=== PATIENT | female | born 1960 | race African-American/Black ===

== ENCOUNTER 2017-12-10 04:35 | Inpatient (IN) | payer BC ==
[~2017-12-10] VITALS: Ht 157.5 cm; Wt 75.7 kg
[2017-12-10] VITALS (19 sets, daily range): BP systolic 82–121; BP diastolic 58–82; PULSE 49–91; RESP 12–18; TEMP 97.6–98.4; O2SAT 95–100
[2017-12-10] MEDS ORDERED: HEPARIN SODIUM - IV 10,000 UNITS/10 ML VIAL ONE ×2 (05:01→05:32)
--- NOTE | 2017-12-10 05:09 | PD ---
HPI Chief Complaint: Fall Time Seen by Provider: 04:50 Travel History International Travel<30 days: No Contact w/Intl Traveler<30days: No Traveled to known affect area: No History of Present Illness HPI 57yo F with PMH of DM presents to the ED with c/o right shoulder, right rib pain after falling today. Said she woke up in bed with chest pain and checked her sugar and it was high so she took her insulin. She then went to the bathroom and fell and hit her head and neck as well as her right ribs. Pt feels sob right now. +Nausea. Denies any vomiting, abdominal pain, focal weakness or numbness. Pt does not have a house admin. PFSH Social History Tobacco Use: No Allergies-Medications (Allergen,Severity, Reaction): Coded Allergies: aspirin (Verified Allergy, Unknown, 12/10/17) famotidine (Verified Allergy, Unknown, 12/10/17) lisinopril (Verified Allergy, Unknown, Itching, 12/10/17) FACIAL SWELLING AND ITCHING metoprolol (Verified Allergy, Unknown, 12/10/17) Reported Meds & Prescriptions Reported Meds & Active Scripts Active Reported Lantus Inj (Insulin Glargine) 1,000 Unit/10 Ml Vial 20 Units SQ HS Humalog Inj (Insulin Human Lispro) 1,000 Unit/10 Ml Vial 30 Units SQ TIDAC Review of Systems Except as stated in HPI: all other systems reviewed are Neg Physical Exam Narrative GENERAL: 57yo F in moderate distress. SKIN: Focused skin assessment warm/dry. HEAD: Atraumatic. Normocephalic. EYES: Pupils equal and round. No scleral icterus. No injection or drainage. ENT: No nasal bleeding or discharge. Mucous membranes pink and moist. NECK: Trachea midline. No JVD. CARDIOVASCULAR: Regular rate and rhythm. No murmur appreciated. RESPIRATORY: No accessory muscle use. Clear to auscultation. Breath sounds equal bilaterally. GASTROINTESTINAL: Abdomen soft, non-tender, nondistended. Hepatic and splenic margins not palpable. MUSCULOSKELETAL: No obvious deformities. No clubbing. No cyanosis. No edema. NEUROLOGICAL: Awake and alert. No obvious cranial nerve deficits. Motor grossly within normal limits. Normal speech. PSYCHIATRIC: Appropriate mood and affect; insight and judgment normal. Data Data Last Documented VS Vital Signs Date Time Temp Pulse Resp B/P (MAP) Pulse Ox O2 Delivery O2 Flow Rate FiO2 12/10/17 05:25 63 14 121/70 (87) 100 Nasal Cannula 3.00 12/10/17 04:[address] Brain W/O Iv Contrast(Rout) (12/10/17 ) Ct Cerv Spine W/O Contrast (12/10/17 ) Ct Thorax/ Chest Wo Iv Contras (12/10/17 ) Heparin Inj (Heparin Inj) (12/10/17 05:01) Sodium Chlor 0.9% 1000 Ml Inj (Ns 1000 M (12/10/17 05:15) Sodium Chlor 0.9% 1000 Ml Inj (Ns 1000 M (12/10/17 05:15) I-Stat Profile (12/10/17 04:50) Troponin I (12/10/17 05:12) Ckmb (Isoenzyme) Profile (12/10/17 05:12) Complete Blood Count With Diff (12/10/17 05:12) Magnesium (Mg) (12/10/17 05:12) Prothrombin Time / Inr (Pt) (12/10/17 05:12) Act Partial Throm Time (Ptt) (12/10/17 05:12) Electrocardiogram (12/10/17 05:12) Iv Access Insert/Monitor (12/10/17 05:12) Oximetry (12/10/17 05:12) Heparin Inj (Heparin Inj) (12/10/17 05:12) Electrocardiogram (12/10/17 ) Ondansetron Inj (Zofran Inj) (12/10/17 05:15) Cardiac Catheterization (12/10/17 ) Potassium Chloride (Kcl) (12/10/17 05:30) Hip, Uni(Ap&Lat) W Ap Pelvis (12/10/17 ) Heparin-Ns/Pf Inj (Heparin-Ns/Pf Inj) (12/10/17 05:32) Heparin Inj (Heparin Inj) (12/10/17 05:32) Admit Order (Ed Use Only) (12/10/17 05:42) CKMB (12/10/17 04:50) CKMB% (12/10/17 04:50) Labs Laboratory Tests Test 12/10/17 04:45 12/10/17 04:50 White Blood Count 12.4 TH/MM3 Red Blood Count 4.99 MIL/MM3 Hemoglobin 14.0 GM/DL Hematocrit 42.3 % Mean Corpuscular Volume 84.7 FL Mean Corpuscular Hemoglobin 28.1 PG Mean Corpuscular Hemoglobin Concent 33.2 % Red Cell Distribution Width 13.7 % Platelet Count 330 TH/MM3 Mean Platelet Volume 8.6 FL Neutrophils (%) (Auto) 50.2 % Lymphocytes (%) (Auto) 44.4 % Monocytes (%) (Auto) 4.4 % Eosinophils (%) (Auto) 0.7 % Basophils (%) (Auto) 0.3 % Neutrophils # (Auto) 6.2 TH/MM3 Lymphocytes # (Auto) 5.5 TH/MM3 Monocytes # (Auto) 0.5 TH/MM3 Eosinophils # (Auto) 0.1 TH/MM3 Basophils # (Auto) 0.0 TH/MM3 CBC Comment AUTO DIFF Differential Total Cells Counted 100 Neutrophils % (Manual) 57 % Band Neutrophils % 1 % Lymphocytes % 38 % Monocytes % 3 % Basophils % 1 % Neutrophils # (Manual) 7.2 TH/MM3 Differential Comment FINAL DIFF MANUAL Platelet Estimate NORMAL Platelet Morphology Comment NORMAL Red Cell Morphology Comment NORMAL Prothrombin Time 10.7 SEC Prothromb Time International Ratio 1.1 RATIO Activated Partial Thromboplast Time 21.3 SEC Bedside Hemoglobin 13.9 G/DL Bedside Hematocrit 41.0 % Bedside Sodium 137 MMOL/L Bedside Potassium 2.9 MMOL/L Bedside Chloride 100 MMOL/L Bedside Blood Urea Nitrogen 17 MG/DL Bedside Creatinine 1.0 MG/DL Bedside Glucose 295 MG/DL Magnesium Level 1.9 MG/DL Total Creatine Kinase 204 U/L Creatine Kinase MB 4.7 NG/ML Creatine Kinase MB % 2.3 % Troponin I 0.32 NG/ML [facility] Medical Decision Making Medical Screen Exam Complete: Yes Emergency Medical Condition: Yes Interpretation(s) EKG: ST elevation in III, aVF with reciprocal ST depression in I, aVL, V2, V3. Differential Diagnosis STEMI vs. ICH vs. fracture Narrative Course 57yo F who woke up with chest pain today. Then she fell and hit her head with questionable LOC. Pt has right sided rib pain, neck pain and left hip pain. STEMI alert activated after I saw the EKG. I spoke with Dr. Eric at 4:50am and he wanted the CT scans first which was completed. Also wanted repeat EKG which now showed ST elevation in lead II as well. CT brain showed no acute intracranial abnormality. CT cervical spine showed subtle nondisplaced fracture involving the anterior tubercle of the left C2 transverse process. Fracture does not appear to extend to the transverse foramen. Pt has cervical spine collar on. CT chest showed no CT evidence for significant traumatic injury in chest. Pt initially hypotensive but BP improved to 121/70 after NS IVF. HR also improved. Pt is allergic to aspirin so not given. Pt given heparin and zofran. POC potassium 2.9. KCl was ordered but not given. Pt emergently transferred to medical lab technician. Critical Care Narrative Aggregate critical care time was 35 minutes. Time to perform other separately billable procedures was not included in the critical care time. My time did not include minutes spent treating any other patients simultaneously or on activities that did not directly contribute to the patient's treatment. The services I provided to this patient were to treat and/or prevent clinically significant deterioration that could result in: cardiovascular collapse or . I provided critical care services requiring my management, as noted below: Chart data review, documentation time, medication orders and management, vital sign assessments/reviewing monitor data, ordering and reviewing lab tests, ordering and interpreting/reviewing x-rays and diagnostic studies, care of the patient and discussion of the patient with the admitting physicians. Diagnosis Primary Impression: STEMI (ST elevation myocardial infarction) Qualified Codes: I21.3 - ST elevation (STEMI) myocardial infarction of unspecified site Admitting Information Admitting Physician Requests: Daniella Mota DO Dec 10, 2017 05:09
[2017-12-10] MEDS ORDERED: HEPARIN SODIUM - IV 10,000 UNITS/10 ML VIAL IV PUSH STA (05:12)
[2017-12-10] MEDS ORDERED: ONDANSETRON HCL 4 MG/2 ML VIAL IV PUSH ONE (05:15)
[2017-12-10] MEDS ORDERED: SODIUM CHLOR 0.9% 1000 ML INJ 1,000 ML IV ONE ×2 (05:15)
--- NOTE | 2017-12-10 05:24 | RADRPT ---
EXAM DATE/TIME: 12/10/2017 05:03 [facility] COMPARISON: No previous studies available for comparison. INDICATIONS : Trauma, fall. RADIATION DOSE: 56.56 CTDIvol (mGy) MEDICAL HISTORY : None SURGICAL HISTORY : None. ENCOUNTER: Initial ACUITY: 1 day PAIN SCALE: 0/10 LOCATION: Bilateral cranial TECHNIQUE: Multiple contiguous axial images were obtained of the head. Using automated exposure control and adj ustment of the mA and/or kV according to patient size, radiation dose was kept as low as reasonably a chievable to obtain optimal diagnostic quality images. DICOM format image data is available electro nically for review and comparison. FINDINGS: CEREBRUM: Mild cerebral volume loss. The ventricles are normal for degree of atrophy. No evidence of midline s hift, mass lesion, hemorrhage or acute infarction. No extra-axial fluid collections are seen. POSTERIOR FOSSA: The cerebellum and brainstem are intact. The 4th ventricle is midline. The cerebellopontine angle i s unremarkable. EXTRACRANIAL: The visualized portion of the orbits is intact. SKULL: The calvaria is intact. No evidence of skull fracture. CONCLUSION: 1. No acute intracranial abnormality. Gabriel Hernández MD on December 10, 2017 at 5:21 Board Certified Radiologist. This report was verified electronically.
[2017-12-10] MEDS ORDERED: HUMALOG SQ (05:29)
[2017-12-10] MEDS ORDERED: POTASSIUM CHLORIDE 20 MEQ CONTROLLED RELEASE TAB PO ONE (05:30)
[2017-12-10] MEDS ORDERED: HEPARIN-NS/PF INJ 1,000 ML ONE (05:32)
--- NOTE | 2017-12-10 05:33 | RADRPT ---
EXAM DATE/TIME: 12/10/2017 05:03 [facility] COMPARISON: No previous studies available for comparison. INDICATIONS : Trauma, fall. RADIATION DOSE: 21.26 CTDIvol (mGy) MEDICAL HISTORY : None SURGICAL HISTORY : None. ENCOUNTER: Initial ACUITY: 1 day PAIN SCALE: 0/10 LOCATION: neck TECHNIQUE: Volumetric scanning of the cervical spine was performed. Multiplanar reconstructions i n the sagittal, coronal and oblique axial planes were performed. Using automated exposure control a nd adjustment of the mA and/or kV according to patient size, radiation dose was kept as low as reason ably achievable to obtain optimal diagnostic quality images. DICOM format image data is available e lectronically for review and comparison. FINDINGS: There is a subtle nondisplaced fracture involving the anterior tubercle of the left C2 transverse pro cess. Fracture doesn't appear to extend to the transverse foramen. Well-corticated osseous fragment a djacent the dens tip does not have the typical appearance of an ossiculum terminale. Vertebral body h eights are intact. Dens is intact. Sagittal alignment is maintained. There is a normal C1-2 relations hip. Facets are normally aligned. There is no significant prevertebral soft tissue hematoma. No signi ficant cervical adenopathy or gross mass. The thyroid appears unremarkable. Visualized lung apices ar e clear without pneumothorax. CONCLUSION: 1. Subtle nondisplaced fracture involving the anterior tubercle of the left C2 transverse process. Fr acture does not appear to extend to the transverse foramen. Gabriel Hernández MD on December 10, 2017 at 5:23 Board Certified Radiologist. This report was verified electronically.
--- NOTE | 2017-12-10 05:36 | RADRPT ---
EXAM DATE/TIME: 12/10/2017 05:07 [facility] COMPARISON: No previous studies available for comparison. INDICATIONS : Trauma, fall. Right side chest pain. RADIATION DOSE: 15.58 CTDIvol (mGy) MEDICAL HISTORY : None SURGICAL HISTORY : None. ENCOUNTER: Initial ACUITY: 1 day PAIN SCALE: 6/10 LOCATION: Right chest TECHNIQUE: Volumetric scanning of the chest was performed. Using automated exposure control and adjustment of t he mA and/or kV according to patient size, radiation dose was kept as low as reasonably achievable to obtain optimal diagnostic quality images. DICOM format image data is available electronically for r eview and comparison. Follow-up recommendations for detected pulmonary nodules are based at a minimum on nodule size and pa tient risk factors according to Fleischner Society Guidelines. FINDINGS: LUNGS: There is no consolidation or pneumothorax. No concerning pulmonary nodule is visualized. PLEURAE: There is no pleural thickening or pleural effusion. MEDIASTINUM: The heart and great vessels demonstrate no acute abnormality. coronary artery calcifications. There i s no mediastinal or hilar lymphadenopathy. AXILLAE: Within normal limits. No lymphadenopathy. MUSCULOSKELETAL: No significant acute fracture. MISCELLANEOUS: The visualized upper abdominal organs demonstrate no acute abnormality. CONCLUSION: 1. No CT evidence for significant acute traumatic injury in the chest. 2. Coronary artery calcifications. Gabriel Hernández MD on December 10, 2017 at 5:32 Board Certified Radiologist. This report was verified electronically.
[2017-12-10] MEDS ORDERED: MIDAZOLAM HCL 2 MG/2 ML VIAL ONE (05:46)
[2017-12-10] MEDS ORDERED: BIVALIRUDIN 250 MG VIAL ONE (05:53)
[2017-12-10 06:03] LABS: AUTOMATED NEUTROPHIL # 6.2 TH/MM3 (1.8-7.7); BASOPHIL % 0.3 % (0.0-2.0); EOSINOPHIL # 0.1 TH/MM3 (0-0.4); EOSINOPHIL % 0.7 % (0.0-4.0); HEMATOCRIT 42.3 % (35.0-46.0); LYMPH % 44.4 % (9.0-44.0); LYMPHOCYTE # 5.5 TH/MM3 (1.0-4.8); MEAN CELL VOLUME 84.7 FL (80.0-100.0); MEAN CORPUSCULAR HEMOGLOBIN 28.1 PG (27.0-34.0); MEAN CORPUSCULAR HGB CONC 33.2 % (32.0-36.0); MEAN PLATELET VOLUME 8.6 FL (7.0-11.0); MONO % 4.4 % (0.0-8.0); MONOCYTE # 0.5 TH/MM3 (0-0.9); NEUT % 50.2 % (16.0-70.0); PLATELET COUNT 330 TH/MM3 (150-450); RED BLOOD COUNT 4.99 MIL/MM3 (4.00-5.30); RED CELL DISTRIBUTION WIDTH 13.7 % (11.6-17.2); WHITE BLOOD COUNT 12.4 TH/MM3 (4.0-11.0)
[2017-12-10 06:13] LABS: INTERNATIONAL NORMALIZED RATIO 1.1 RATIO; PROTHROMBIN TIME - PATIENT 10.7 SEC (9.8-11.6)
[2017-12-10 06:22] LABS: MAGNESIUM 1.9 MG/DL (1.5-2.5)
[2017-12-10 06:24] LABS: TROPONIN I 0.32 NG/ML (0.02-0.05)
[2017-12-10] MEDS ORDERED: CANGRELOR TETRASODIUM 50,000 MCG VIAL ONE (06:28)
[2017-12-10] MEDS ORDERED: TICAGRELOR 90 MG TAB PO ONE ×2 (06:36→06:45)
[2017-12-10] MEDS ORDERED: SODIUM CHLOR 0.9% 1000 ML INJ 1,000 ML IV SCH (06:41)
[2017-12-10] MEDS ORDERED: ONDANSETRON HCL 4 MG/2 ML VIAL IV PUSH PRN (06:45)
[2017-12-10] MEDS ORDERED: CANGRELOR INJ 50,000 MCG in SODIUM CHLOR 0.9% 250 ML INJ 250 ML IV ONE (06:45)
[2017-12-10] MEDS ORDERED: ACETAMINOPHEN 325 MG TAB PO PRN (06:45)
[2017-12-10] MEDS ORDERED: MISC INFORMATION XX ONE (06:45)
[2017-12-10] MEDS ORDERED: SODIUM CHLORIDE 0.9% FLUSH 10 ML FLUSH IV FLUSH PRN (06:45)
[2017-12-10] MEDS ORDERED: ATROPINE SULFATE 1 MG/ML VIAL IV PUSH PRN (06:45)
--- NOTE | 2017-12-10 06:47 | CATHPROC ---
[employer] HIS Report Study Information Study Number Admission Scheduled Start Study Start [id number] Dec 10 2017 4:35AM 12/10/2017 Dec 10 2017 5:28AM [place] Service Cardiac Catheterization Admit Source Facility Department Emergency department [facility] Physician and Clinical Staff Initial Navdeep Luna Upholsterer Inside Ananya Merida ,NANETTEN Upholsterer Inside Zeb Alvares,GUZMAN Recorder Aneudy Villaseñor,RT(R) Scrub Israel Guaman,RT(R) Procedures Performed Procedure Location (Site) Vessel Name Coronary Angiograms LCA Left Coronary Coronary Angiograms RCA Right Coronary Drug Eluting Inflatio RCA Dist Right Coronary Drug Eluting Inflatio RCA Mid Right Coronary L Heart Cath PTCA RCA Dist Right Coronary PTCA RCA Mid Right Coronary PTCA RCA Prox Right Coronary Wire insertion Fem Art (right) Femoral Art Equipment Time Tank Inspector Description Size Mfg Part Number Used/Scraped PERCLOSE, PRO GLIDE CLOSER 06:26 [employer] FR 6 [id number] *[id number] Used DEVICE TRANSDUCER, TRUWAVE [id number] 05:47 MCCORMACK [employer] * Used W/STOCKTestCredCK *[id number] INTRODUCER SET, 05:47 [employer] FR 5 [id number] *[id number] Used MICROPUNCTURE, STIFFENED [id number] *[id number] *[id number] 05:47 [employer] INDUSTRIES PACK, CCL CUSTOM * Used *[id number] 06:03 [employer]TR[employer]IC BALLOON, 3.0 X 12MM EUPHORA 12MM Used *[id number] BALLOON, 3.5 X 20MM NC [id number] 06:22 [employer]TR[employer]IC 20MM Used EUPHORA *[id number] EXPORTAP 06:06 [employer]IC CATHETER, EXPORT ASPIRATON Used *[id number] 06:21 [employer]TR[employer]IC STENT, 2.75 12MM JINNY 2.75 12MM Used *[id number] 06:18 [employer]IC STENT, 3.0 26MM JINNY 3.0 26MM Used *[id number] 06:05 [employer] MEDICAL 30 RAQUEL INDEFLATOR Used *[id number] 06:00 [employer] MEDICAL SHEATH, FR6.5 PRELUDE 11CM FR 6.5 038ACT Used *[id number] 05:47 MERIT MEDICAL WIRE, 3MMJ .035 180CM 180CM Used *[id number] 05:47 NAMIC MANIFOLD, 4 PORT * Used *[id number] 05:47 NYCOMED OMNIPAQUE, 350 MG, 150ML 150ML [id number] Used [id number] 05:47 ARREGUIN MEDICAL BLANKET,WARM AIR CCL * Used *[id number] WIRE, RUNTHROUGH NS FLOPPY [id number] 06:03 [employer] MEDICAL 180CM Used .014 180CM *[id number] Equipment Model, Serial, Lot Number and Expiration Data Description Model Number Serial Number Lot Number Expiration Date CATHETER, EXPORT ASPIRATON [id number] 07-15-2019 PERCLOSE, PRO GLIDE CLOSER [id number] 06-21-2019 DEVICE STENT, 2.75 12MM JINNY [id number] 07-24-2019 STENT, 3.0 26MM JINNY [id number] 05-24-2019 History: Current Medications Medication Dosage/Unit Route Frequency Last Date/Time Taken Insulin History: Allergies Allergy Reaction lisinopril aspirin famotidine metoprolol History: Risk Factors Family History of Hypertension Dyslipidemia Previous OR Previous Heart Failure Premature CAD Yes No Yes No No Prior Valve Prior PCI Prior CABG Surgery No No No Cerebrovascular Peripheral Artery Chronic Lung On Dialysis Diabetes Diabetes Therapy Disease Disease Disease No No No No Yes Insulin History: Symptoms/Diagnosis Selection Items Chest pain Syncope History: Stress Tests Stress or Imaging Studies Performed No History: Other Current Smoker No Labs Hgb (g/dl) Hct (%) 11.60-17.00 35.00-51.00 13.9 41 Glucose (mg/dl) BUN (mg/dl) Creatinine (mg/dl) BUN:Creatinine (1:x) 74.00-106.00 7.00-18.00 0.50-1.30 10.00-20.00 295 17 1.0 17 Na (meq/l) K (meq/l) Cl (meq/l) 136.00-145.00 3.50-5.10 98.00-107.00 134 2.9 100 CPK-MB (ng/ML) 0.50-3.60 Not Drawn Medication Medication Total Dose (Bolus/Oral) Medication Total Dosage/Unit 1% XYLOCAINE 20 mL ANGIOMAX BOLUS 11 mL BRILINTA 180 mg FENTANYL 50 mcg VERSED 2 mg Medications (Bolus/Oral) Medication Time Given Dosage/Unit Administered By Reason 1% XYLOCAINE 12/10/2017 5:56:54 AM 20 mL Patient arrived on 20 mL 1% XYLOCAINE via Subcutaneous. VERSED 12/10/2017 5:57:00 AM 2 mg Zeb Alvares Patient arrived on 2 mg VERSED given by Zeb Alvares, RN in Right Antecubital via Peripheral IV. FENTANYL 12/10/2017 5:57:01 AM 50 mcg Zeb Alvares Patient arrived on 50 mcg FENTANYL given by Zeb Alvares, GUZMAN in Right Antecubital via Peripheral IV . ANGIOMAX BOLUS 12/10/2017 6:03:16 AM 11 mL Ananya Merida Patient arrived on 11 mL ANGIOMAX BOLUS given by Ananya Merida BSN in Right Antecubital via Pe ripheral IV. BRILINTA 12/10/2017 6:37:25 AM 180 mg Ananya Merida 180 mg BRILINTA given in lab by Ananya Merida BSN via Oral. Medication (Drip) Medication Time Given Dosage/Unit Concentration/Unit Diluent (ml) Solutio n ANGIOMAX DRIP 12/10/2017 6:05:07 AM 1.75 mg/kg/hr 250 mg 50 NaCl .9 1.75 mg/kg/hr ANGIOMAX DRIP given in lab by Ananya Merida BSN in Right Antecubital via Periphe ral IV. Pump/Drip Flow = 26.25 ml/hr using NaCl .9 with a concentration of 250 mg in 50 ml. IV Solutions 12/10/2017 5:44:23 AM 0 mL (IV) 500 NaCl .9 Patient arrived on IV Solutions in Right Antecubital via Peripheral IV. Pump/Drip Flow = 20 ml/hr usi ng NaCl .9. KENGREAL BOLUS 12/10/2017 6:35:16 AM 11 mL 11 mL KENGREAL BOLUS given in lab by Ananya Merida BSN in Right Antecubital via Peripheral IV. KENGREAL DRIP 12/10/2017 6:35:38 AM 4 mcg/kg/min 50 mg 250 NaCl .9 4 mcg/kg/min KENGREAL DRIP given in lab by Ananya Merida BSN in Right Antecubital via Peripher al IV. Pump/Drip Flow = 90 ml/hr using NaCl .9 with a concentration of 50 mg in 250 ml. Initial Case Assessment Cardiovascular HR Rhythm NIBP 54 Irregular 143/107 Edema Present Skin color Skin None Normal Warm Circulatory - Right Pulses Dorsalis Pedis Femoral 1 2 Scale (0,1,2,3,4,d) Circulatory - Left Pulses Dorsalis Pedis Femoral 1 2 Scale (0,1,2,3,4,d) Neurological State Oriented to time-place- Alert Moves all extremities person Respiration - General Respiration Rate SpO2 (%) O2 (lpm) (B/min) 15 100 0 Final Case Assessment Cardiovascular HR Rhythm NIBP Chest Pain 75 Sinus 95/67 0 Edema Present Skin color Skin None Normal Warm Dry Circulatory - Right Pulses Dorsalis Pedis Femoral 1 2 Scale (0,1,2,3,4,d) Circulatory - Left Pulses Dorsalis Pedis Femoral 1 2 Scale (0,1,2,3,4,d) Neurological State Oriented to time-place- Alert Moves all extremities person Respiration - General Respiration Rate SpO2 (%) O2 (lpm) (B/min) 17 97 0 Chronological Log Time Study Chronological Log 5:30:06 Emergency Room notified that [facility] is ready. 5:36:24 Patient arrived via Bed. 5:36:25 Patient Name, D.O.B, / Armband Verified By R.N. 5:36:25 Consent signed by the physician and the patient and verified by the [facility] staff. 5:36:26 Pre-op and post- op instructions given; patient acknowledges understanding of instructions. 5:36:31 Verbal Stimulation=2 Physical Stimulation=2 Airway=2 Respiration=2 TOTAL=8. (0=absent, 1=li mited, 2=present) 5:36:45 Presedation assessment performed by [facility] RN. 5:43:51 Immediate Presedation assesment performed by physician. 5:43:52 Patient has been NPO for Less than 6Hrs. 5:43:54 Skin Breakdown- none per patient. 5:44:04 Patient Warmer Placed on the Table. 5:44:06 Flavio Prominences Protected 5:44:07 A # 20 IV was noted in the Antecubital (right). Grade = 0 Vitals capture started with the following parameters, Patient=Adult, Interval=5 min, Initial Pr gjursn=644 mmHg, 5:44:15 Deflation Rate=5 mmHg, Cuff placed on Left Arm 5:44:23 Patient arrived on IV Solutions in Right Antecubital via Peripheral IV. Pump/Drip Flow = 20 ml/hr using NaCl .9. 5:44:43 HR=66 bpm, TYMY=009/107 mmhg, FoE7=601.0 %, Resp=23 B/min, Pain=6, Eliel=10, Butler=2 5:44:45 A # 20 IV was noted in the Antecubital (left). Grade = 0 5:45:05 History and physical on the chart or being dictated. Assessment: Initial Case, HR=54 BPM, Rhythm=Irregular, IDDW=108/107 mmhg, Edema=None, Color=Norm al, Skin = Warm Right Pulses: Tommy Ped=1, Femoral=2 5:45:06 Left Pulses: Tommy Ped=1, Femoral=2 Neurological: State=Alert, Ox3, LOUISE Respiration: Resp=15 B/min, JiA3=905 %, O2=0 lpm 5:45:54 Bilateral groins prepped with 2% chlorhexidine, and draped after a 3 minute waiting time. 5:46:19 MD paged 5:49:35 Pressure channel 1 zeroed. 5:49:51 HR=87 bpm, JLCH=060/85 mmhg, SpO2=99.0 %, Resp=19 B/min, Pain=6, Eliel=10, Butler=2 5:51:00 MD arrived. 5:53:16 Reference ECG taken Time Out. Correct patient, correct procedure, correct physician, power injector loaded, or not l oaded with contrast with 5:55:24 surgical team present. Time Out Concurred by MD and individual staff in procedure. 5:55:29 HR=91 bpm, YEBH=456/117 mmhg, SpO2=99.0 %, Resp=16 B/min, Pain=6, Eliel=10, Butler=2 5:55:38 Case Start 5:56:54 Patient arrived on 20 mL 1% XYLOCAINE via Subcutaneous. 5:57:00 Patient arrived on 2 mg VERSED given by Zeb Alvares RN in Right Antecubital via Peripher al IV. 5:57:01 Patient arrived on 50 mcg FENTANYL given by Zeb Alvares RN in Right Antecubital via Jacqui pheral IV. 5:58:18 Access site was Right Femoral Artery. 5:58:20 A SHEATH, FR6.5 PRELUDE 11CM FR 6.5 was advanced into the Fem Art (right) using the Percutan eous technique. A JL 4.0 INFINITI CATHETER FR 6 was advanced over a wire. OMNIPAQUE, 350 MG, 150ML 150ML was use d for 5:58:24 injections. 5:59:55 HR=80 bpm, UJSI=901/97 mmhg, SpO2=87.0 %, Resp=18 B/min, Pain=6, Eliel=10, Butler=2 6:00:04 The LCA was injected and visualized at various angles. OMNIPAQUE, 350 MG, 150ML 150ML used. 6:00:34 Catheter was removed A JR 4.0 GUIDE CATHETER FR 6 was advanced over a wire. OMNIPAQUE, 350 MG, 150ML 150ML was used f or 6:01:07 injections. Recorded Pressure: LV, HR=55, Condition=Condition 1 6:01:59 (Left Ventricle) LV 102/10/21 Recorded Pressure: LV, Ao, HR=55, Condition=Condition 1 6:02:02 (Left Ventricle) LV 108/6/24, (Aorta) Ao 108/61/82 Recorded Pressure: Ao, HR=54, Condition=Condition 1 6:02:22 (Aorta) Ao 104/61/80 6:02:24 The RCA was injected and visualized at various angles. OMNIPAQUE, 350 MG, 150ML 150ML used. 6:03:16 Patient arrived on 11 mL ANGIOMAX BOLUS given by Ananya Merida BSN in Right Antecubit al via Peripheral IV. 6:03:40 A WIRE, RUNTHROUGH NS FLOPPY .014 180CM 180CM was inserted via Fem Art (right). 6:04:05 Interventional wire has crossed the lesion A BALLOON, 3.0 X 12MM EUPHORA 12MM was inserted over WIRE, RUNTHROUGH NS FLOPPY .014 180CM 180CM via 6:04:11 the RCA Mid. A BALLOON, 3.0 X 12MM EUPHORA 12MM over a WIRE, RUNTHROUGH NS FLOPPY .014 180CM 180CM in the RCA Mid 6:04:48 was inflated using a 30 RAQUEL INDEFLATOR at 8 raquel for 15 sec. 6:04:54 HR=53 bpm, VSLV=408/72 mmhg, SpO2=94.0 %, Resp=15 B/min, Pain=6, Eliel=10, Butler=2 1.75 mg/kg/hr ANGIOMAX DRIP given in lab by Ananya Merida BSN in Right Antecubital via Pe ripheral IV. 6:05:07 Pump/Drip Flow = 26.25 ml/hr using NaCl .9 with a concentration of 250 mg in 50 ml. A BALLOON, 3.0 X 12MM EUPHORA 12MM over a WIRE, RUNTHROUGH NS FLOPPY .014 180CM 180CM in the RCA Dist 6:05:55 was inflated using a 30 RAQUEL INDEFLATOR at 8 raquel for 10 sec. 6:06:36 Balloon Removed. 6:07:57 Aspiration catheter inserted 6:08:20 Aspiration in progress 6:10:38 HR=48 bpm, NIBP=94/53 mmhg, SpO2=93.0 %, Resp=13 B/min, Pain=6, Eliel=10, Butler=2 6:12:31 Catheter was removed 6:14:44 HR=43 bpm, NIBP=89/59 mmhg, SpO2=95.0 %, Resp=14 B/min, Pain=6, Eliel=10, Butler=2 A STENT, 3.0 26MM JINNY 3.0 26MM was advanced through a JR 4.0 GUIDE CATHETER FR 6 over a WIRE, 6:16:56 RUNTHROUGH NS FLOPPY .014 180CM 180CM. A STENT, 3.0 26MM JINNY 3.0 26MM was deployed using a 30 RAQUEL INDEFLATOR at 18 atmospheres for 20 seconds in 6:17:28 the RCA Mid. 6:18:11 Delivery device removed 6:18:18 The RCA was injected and visualized at various angles. OMNIPAQUE, 350 MG, 150ML 150ML used. 6:19:43 HR=77 bpm, DBJO=797/65 mmhg, SpO2=96.0 %, Resp=18 B/min, Pain=6, Eliel=10, Butler=2 A STENT, 2.75 12MM JINNY 2.75 12MM was advanced through a JR 4.0 GUIDE CATHETER FR 6 over a WIRE, 6:20:14 RUNTHROUGH NS FLOPPY .014 180CM 180CM. A STENT, 2.75 12MM JINNY 2.75 12MM was deployed using a 30 RAQUEL INDEFLATOR at 12 atmospheres for 1 5 seconds 6:21:29 in the RCA Dist. 6:21:50 Delivery device removed A BALLOON, 3.5 X 20MM NC EUPHORA 20MM was inserted over WIRE, RUNTHROUGH NS FLOPPY .014 180CM 18 0CM 6:23:05 via the RCA Prox. A BALLOON, 3.5 X 20MM NC EUPHORA 20MM over a WIRE, RUNTHROUGH NS FLOPPY .014 180CM 180CM in the RCA 6:23:06 Prox was inflated using a 30 RAQUEL INDEFLATOR at 12 raquel for 15 sec. A BALLOON, 3.5 X 20MM NC EUPHORA 20MM over a WIRE, RUNTHROUGH NS FLOPPY .014 180CM 180CM in the RCA 6:23:24 Prox was inflated using a 30 RAQUEL INDEFLATOR at 12 raquel for 10 sec. 6:24:41 The RCA was injected and visualized at various angles. OMNIPAQUE, 350 MG, 150ML 150ML used. 6:24:46 HR=79 bpm, DUFK=395/62 mmhg, SpO2=96.0 %, Resp=8 B/min, Pain=6, Eliel=10, Butler=2 6:24:57 Catheter was removed 6:25:00 Wire removed 6:25:36 An injection in the Fem Art (right) was made through the SHEATH, FR6.5 PRELUDE 11CM FR 6.5. 6:26:11 PERCLOSE, PRO GLIDE CLOSER DEVICE FR 6 placement in the Fem Art (right) 6:29:34 Case End 6:29:49 HR=79 bpm, NIBP=95/67 mmhg, SpO2=96.0 %, Resp=21 B/min, Pain=6, Eliel=10, Butler=2 6:31:51 Sterile dressing applied to site 6:31:52 No case complications noted. 6:31:53 Cine recording checked. Assessment: Final Case, HR=75 BPM, Rhythm=Sinus, NIBP=95/67 mmhg, Chest Pain=0, Edema=None, Narka r=Normal, Skin = Warm, Dry Right Pulses: Tommy Ped=1, Femoral=2 6:31:55 Left Pulses: Tommy Ped=1, Femoral=2 Neurological: State=Alert, Ox3, LOUISE Respiration: Resp=17 B/min, SpO2=97 %, O2=0 lpm 6:33:30 Implantable Device card placed in patient's chart. 6:33:53 Bedside Report will be given. 6:34:07 A Left Heart Cath was performed. 6:35:16 11 mL KENGREAL BOLUS given in lab by Ananya Merida BSN in Right Antecubital via Perip heral IV. 6:35:21 HR=59 bpm, OJLX=024/63 mmhg, SpO2=97.0 %, Resp=23 B/min, Pain=6, Eliel=10, Butler=2 4 mcg/kg/min KENGREAL DRIP given in lab by Ananya Merida BSN in Right Antecubital via Per ipheral IV. 6:35:38 Pump/Drip Flow = 90 ml/hr using NaCl .9 with a concentration of 50 mg in 250 ml. 6:37:25 180 mg BRILINTA given in lab by Ananya Merida BSN via Oral. 6:39:33 Vitals capture stopped. 6:39:59 Patient moved to [facility] End Study - Contrast Media Used In Study Contrast Total Opened (mL) Total Used (mL) Total Wasted (mL) Omnipaque 150 85 65 End Study - Maximum Contrast Load Max Contrast Load (mL) 375.0 End Study - Radiation Exposure Fluoro Time (minutes) 8.1 End Study - Patient Disposition Complications Transferred To Interventional Outcome No Telemetry Bed successful
[2017-12-10 06:58] LABS: BANDS 1 % (0-6); BASOPHILS 1 % (0-2); LYMPHOCYTES 38 % (9-44); MONOCYTES 3 % (0-8); NEUTROPHIL # MANUAL DIFF 7.2 TH/MM3 (1.8-7.7); POLYS (SEG NEUTROPHILS) 57 % (16-70)
[2017-12-10] MEDS ORDERED: IOHEXOL 350 MG/ML 100 ML BTL (for Cath Lab) OTHER ONE (07:35)
--- NOTE | 2017-12-10 08:00 | EKG ---
Date Performed: 12/10/2017 Time Performed: 05:21:24 PTAGE: 57 years EKG: SINUS BRADYCARDIA WITH OCCASIONAL SUPRAVENTRICULAR PREMATURE COMPLEXES INFERIOR MYOCARDIAL INFARCTION ACUTE PA No significant change from prior electrocardiogram. PREVIOUS TRACING : 12/10/2017 04.47 DOCTOR: Jatin Santos Interpretating Date/Time 12/10/2017 07:58:36
--- NOTE | 2017-12-10 08:00 | EKG ---
Date Performed: 12/10/2017 Time Performed: 04:47:29 PTAGE: 57 years EKG: SINUS BRADYCARDIA MARKED ST ELEVATION, CONSIDER INFERIOR INJURY ACUTE IL NO PREVIOUS TRACING DOCTOR: Jatin Santos Interpretating Date/Time 12/10/2017 08:00:28
[2017-12-10] MEDS ORDERED: LANTUS2P SQ (08:51)
[2017-12-10] MEDS: ASPIRIN EC 81 MG TABEC PO SCH (08:54)
--- NOTE | 2017-12-10 08:54 | MA ---
cc: MARVIN MALDONADO DATE 12/10/2017 DATE OF 1960 PROCEDURE PERFORMED 1. Left heart catheterization 2. Selective right and left coronary angiography. 3. Successful PCI/MAXWELL to the right coronary artery INDICATIONS Inferior STEMI APPROACH Right femoral DESCRIPTION OF PROCEDURE Consent signed. The patient was brought into the cardiac labour market economist in a fasting emergent state. The right groin was prepped and draped in a sterile fashion using 1% lidocaine for local anesthesia and a micropuncture kit. A 6-Sami sheath was inserted into the right common femoral artery. Right common femoral artery angiography was performed to optimum position on the sheath. Then selective right and left coronary angiography was performed with a JL-4 and a JR -4 guide. We identified a thrombotic lesion in the right coronary artery explaining her symptoms. There is a thrombotic lesion that was amendable to intervention. Angiomax was given for anticoagulation. The vessel was wired with a run-through wire that was anchored distally in the PDA. This was followed by predilation with a 3.0 x 12 balloon. There was a significant thrombotic burden in the whole vessel for which a Pronto Aspiration Catheter had to be used, with successful retrieval of clot. Then we proceeded with inserting and deploying one 2.75 x 12 drug-eluting stent distally in the RCA and another 3.0 x 26 mm drug-eluting stent in the mid RCA. The mid RCA stent was postdilated with a noncompliant 3.5 x 20 balloon. Final angiographic views revealed good stent apposition and expansion with CHRIS-III flow and nonobstructive coronary artery disease. The patient tolerated the procedure well without complications. Estimated blood loss less than 10 cc. Total contrast used 85 cc. The right groin access site was closed with a Perclose device. The patient was started on Cangrelor and she was loaded with Brilinta. ANGIOGRAPHIC RESULTS 1. Left main. The patient has separate ostia. 2. LAD. This is a transapical artery that has significant minimal luminal irregularities and mild calcification. On the leaflet segment of the LAD, there is indeed a 90% eccentric lesion. The LAD is also giving an element which diffusely diseased and is giving two side branches, one which has a proximal 90% lesion. 3. Left circumflex artery. The left circumflex artery is diffusely diseased. It has a sequential stenotic lesion of about 80%. The circumflex artery is giving two OM arteries which are diffusely diseased also with no significant minimal irregularity. 4. The right coronary artery is a dominant artery and is 100% occluded in its midsegment. CONCLUSION Successful PCI/MAXWELL to proximal and distal right coronary artery in the setting of a STEMI. RECOMMENDATIONS The patient will be admitted to the CVICU for post cath care. We will continue IV hydration for the next four hours. Continue dual antiplatelet agent with aspirin and Brilinta. Cangrelor infusion will continue for the next two hours and continue aggressive medical management for secondary prevention of CAD. 2-D echo while inpatient to assess LV systolic function. MD JOSE ALBERTO Saxena/IRISH /6:31 AM /8:33 AM [facility]ING[facility]
[2017-12-10] MEDS: SODIUM CHLORIDE 0.9% FLUSH 10 ML FLUSH IV FLUSH SCH ×2 (08:57→21:47)
[2017-12-10] MEDS ORDERED: LISINOPRIL 5 MG TAB PO SCH (09:00)
--- NOTE | 2017-12-10 09:06 | MB ---
cc: MARVIN MALDONADO DATE OF CONSULTATION 12/10/2017 DATE OF 1960 REASON FOR CONSULTATION Chest pain, STEMI. HISTORY OF PRESENT ILLNESS 57-year-old female with cardiac risk factors that include obesity and diabetes, who presented to the emergency department with sudden onset of left-sided chest pain. The patient reports that she woke up from bed with chest pain, checked her sugar which was high, went to the bathroom and apparently she fell and hit her head for which she was taken to the emergency department. In the emergency department EKG revealed inferior ST-segment elevation with reciprocal changes in the anterior leads for which a STEMI Alert was activated. The patient also had a head CT scan given the fall at home which was unremarkable for bleeding or masses. Interventional cardiology has been consulted for primary PCI. REVIEW OF SYSTEMS The patient reports shortness of breath, left-sided chest pain. Denies palpitation, syncope, PND, leg edema, headache, fevers, chills, nausea, vomiting or diarrhea. PAST MEDICAL HISTORY 1. Diabetes. 2. Obesity. PAST SURGICAL HISTORY None reported. SOCIAL HISTORY No illicit drug use, no alcohol or tobacco abuse. FAMILY HISTORY Noncontributory. Allergy: ACEi PHYSICAL EXAMINATION VITAL SIGNS: Temperature 97, heart rate 50, respiratory rate 18, blood pressure 99/65. GENERAL: She is awake, alert, oriented x3, in no acute distress. NECK: No JVD. No carotid bruits. HEART: Bradycardic. No murmurs, rubs or gallops. LUNGS: Clear to auscultation bilaterally. ABDOMEN: Obese, benign. EXTREMITIES: No cyanosis or edema. Pulses throughout. LABORATORY Hemoglobin 14, hematocrit 42, platelet count 330. INR 1. Sodium 137. Point of care potassium 2.9. Troponin 0.32. Point of care glucose 295. IMAGING Head CT: No significant acute intracranial abnormality. Cervical Spine: There is a subtle nondisplaced fracture involving the anterior tubercle of the left C2 transverse process. The fracture does not appear to extend to the transverse foramen. EKG is sinus rhythm with ST elevation in the inferior leads with ST reciprocal changes in the anterior leads. ASSESSMENT 57-year female with cardiac risk factors that include diabetes and obesity, who presented with a STEMI. The patient remains with chest pain although hemodynamically stable and some mild associated shortness of breath. Given the patient's presentation recommendation will be to take her emergently to the cardiac labor delivery rn for primary PCI per ACC/AHA guidelines. The risks and benefits of left heart cath including PCI has been discussed with the patient. The risks and benefits include but are not limited to neurovascular trauma, bleeding, infection, acute kidney injury, emergent bypass surgery, stroke and . The patient understands the risks and she is willing to proceed. PLAN Emergent primary PCI Marvin Maldonado MD CHAINSTITCH ELASTIC ATTACHER/BT /6:44 AM /8:48 AM DOMINGO
[2017-12-10] MEDS: INSULIN ASPART 1,000 UNITS/10 ML VIAL SQ SCH ×2 (12:00→17:17)
[2017-12-10 12:17] LABS: BICARBONATE 22.5 MEQ/L (21.0-32.0); CALCIUM 7.4 MG/DL (8.5-10.1); CREATININE 0.74 MG/DL (0.50-1.00)
[2017-12-10 12:36] LABS: CALCIUM-PROTEIN CORRECTED 7.9 MG/DL (8.5-10.1); TOTAL PROTEIN 6.2 GM/DL (6.4-8.2)
--- NOTE | 2017-12-10 13:08 | PD.CONS ---
[facility] By [facility] Reason for Consult Medical Management Primary Care Physician Unknown Diagnoses: History of Present Illness 57-year-old female medical history of diabetes type 2 was brought to the emergency department for evaluation of left-sided chest pain status post mechanical fall 2 this morning. Patient states, woke up from bed with chest pain and check her blood sugar which was high. However as she was walking to bathroom she fell down and hit her head. Apparently this happened twice. Patient was taken to the ED for evaluation of left-sided chest pain. However in the ED, an EKG revealed inferior ST elevation CA for which cardiology was consulted and patient was taken emergently to catheter lab for PCI. Review of cervical spine CT revealed C2 transverse process fracture. Patient complains of bilateral hip pain. She has no shortness of breath. She denies any GI bleed. Review of Systems Except as stated in HPI: all other systems reviewed are Neg Past Family Social History Allergies: Coded Allergies: aspirin (Verified Allergy, Unknown, 12/10/17) famotidine (Verified Allergy, Unknown, 12/10/17) lisinopril (Verified Allergy, Unknown, Itching, 12/10/17) FACIAL SWELLING AND ITCHING metoprolol (Verified Allergy, Unknown, 12/10/17) Past Medical History Diabetes type 2 Obesity Past Surgical History Hysterectomy Right shoulder surgery Reported Medications Humolog Family History +for CAD/DM/Hypertension/Hyperlipidemia Social History Patient denies any tobacco, alcohol or illicit drug intake Physical Exam Vital Signs Vital Signs Date Time Temp Pulse Resp B/P (MAP) Pulse Ox O2 Delivery O2 Flow Rate FiO2 12/10/17 12:24 60 12/10/17 11:19 98.0 89 16 113/72 (86) 96 12/10/17 11:19 91 12/10/17 10:17 69 12/10/17 08:00 68 12/10/17 08:00 98.0 90 16 117/82 (94) 98 12/10/17 07:14 16 12/10/17 05:53 12/10/17 05:25 63 14 121/70 (87) 100 Nasal Cannula 3.00 12/10/17 04:57 52 14 99/65 (76) 100 Nasal Cannula 2.00 12/10/17 04:50 100 Nasal Cannula 3.00 12/10/17 04:50 100 3.00 12/10/17 04:39 98.4 49 18 82/58 (05) 95 Physical Exam GENERAL: This is a well-nourished, well-developed patient, in no apparent distress. SKIN: No rashes, ecchymoses or lesions. Cool and dry. HEAD: Atraumatic. Normocephalic. No temporal or scalp tenderness. EYES: Pupils equal round and reactive. Extraocular motions intact. No scleral icterus. No injection or drainage. ENT: Nose without bleeding, purulent drainage or septal hematoma. Throat without erythema, tonsillar hypertrophy or exudate. Uvula midline. Airway patent. NECK: Trachea midline. No JVD or lymphadenopathy. neck collar in place CARDIOVASCULAR: Regular rate and rhythm without murmurs, gallops, or rubs. RESPIRATORY: Clear to auscultation. Breath sounds equal bilaterally. No wheezes , rales, or rhonchi. GASTROINTESTINAL: Abdomen soft, non-tender, nondistended. No hepato-splenomegaly , or palpable masses. No guarding. MUSCULOSKELETAL: Extremities without clubbing, cyanosis, or edema. No joint tenderness, effusion, or edema noted. No calf tenderness. Negative Homans sign bilaterally. NEUROLOGICAL: Awake and alert. Cranial nerves II through XII intact. Motor and sensory grossly within normal limits. Five out of 5 muscle strength in all muscle groups. Normal speech. Laboratory Laboratory Tests Test 12/10/17 04:45 12/10/17 04:50 12/10/17 11:42 White Blood Count 12.4 Red Blood Count 4.99 Hemoglobin 14.0 Hematocrit 42.3 Mean Corpuscular Volume 84.7 Mean Corpuscular Hemoglobin 28.1 Mean Corpuscular Hemoglobin Concent 33.2 Red Cell Distribution Width 13.7 Platelet Count 330 Mean Platelet Volume 8.6 Neutrophils (%) (Auto) 50.2 Lymphocytes (%) (Auto) 44.4 Monocytes (%) (Auto) 4.4 Eosinophils (%) (Auto) 0.7 Basophils (%) (Auto) 0.3 Neutrophils # (Auto) 6.2 Lymphocytes # (Auto) 5.5 Monocytes # (Auto) 0.5 Eosinophils # (Auto) 0.1 Basophils # (Auto) 0.0 CBC Comment AUTO DIFF Differential Total Cells Counted 100 Neutrophils % (Manual) 57 Band Neutrophils % 1 Lymphocytes % 38 Monocytes % 3 Basophils % 1 Neutrophils # (Manual) 7.2 Differential Comment FINAL DIFF MANUAL Platelet Estimate NORMAL Platelet Morphology Comment NORMAL Red Cell Morphology Comment NORMAL Prothrombin Time 10.7 Prothromb Time International Ratio 1.1 Activated Partial Thromboplast Time 21.3 Bedside Hemoglobin 13.9 Bedside Hematocrit 41.0 Bedside Sodium 137 Bedside Potassium 2.9 Bedside Chloride 100 Bedside Blood Urea Nitrogen 17 Bedside Creatinine 1.0 Bedside Glucose 295 Magnesium Level 1.9 Total Creatine Kinase 204 Creatine Kinase MB 4.7 Creatine Kinase MB % 2.3 Troponin I 0.32 Blood Urea Nitrogen 13 Creatinine 0.74 Random Glucose 248 Total Protein 6.2 Calcium Level 7.4 Sodium Level 137 Potassium Level 4.4 Chloride Level 106 Carbon Dioxide Level 22.5 Anion Gap 9 Estimat Glomerular Filtration Rate 99 Protein Corrected Calcium 7.9 Result Diagram: 12/10/17 0445 12/10/17 1142 Imaging Last Impressions Head CT 12/10/17 0000 Signed Impressions: Service Date/Time: Sunday, December 10, 2017 05:03 - CONCLUSION: 1. No acute intracranial abnormality. Gabriel Hernández MD Chest CT 12/10/17 0000 Signed Impressions: Service Date/Time: Sunday, December 10, 2017 05:07 - CONCLUSION: 1. No CT evidence for significant acute traumatic injury in the chest. 2. Coronary artery calcifications. Gabriel Hernández MD Cervical Spine CT 12/10/17 0000 Signed Impressions: Service Date/Time: Sunday, December 10, 2017 05:03 - CONCLUSION: 1. Subtle nondisplaced fracture involving the anterior tubercle of the left C2 transverse process. Fracture does not appear to extend to the transverse foramen. Gabriel Hernández MD Assessment and Plan Problem List: (1) Traumatic closed fracture of C2 vertebra with minimal displacement ICD Code: S12.100A - Unspecified displaced fracture of second cervical vertebra , initial encounter for closed fracture (2) STEMI (ST elevation myocardial infarction) ICD Code: I21.3 - ST elevation (STEMI) myocardial infarction of unspecified site Status: Acute Assessment and Plan 57 yrs old female with ST elevation CA Management per cardiology Status Post PCI Continue with Brilinta 90 mg twice a day, aspirin 81 mg daily, Lipitor 10 mg at bedtime and lisinopril 5 mg daily Nondisplaced fracture C2 transverse process Cervical spine noted and review by me with finding of subtle nondisplaced fracture involving the anterior tubercle of the left C2 transverse process Currently neck collar in place Consult neurosurgery Mechanical fall Head CT noted and review by me without any acute finding CT chest noted and review by me without any acute finding cervical spine noted and review--see above treatment PT consult to treat and eval Hip pain Xray to rule out fracture Diabetes type 2 Resume outpatient medications including basal insulin ISS and check Hemoglobin A1c Code Status Full code Discussed Condition With Patient Problem Qualifiers (1) STEMI (ST elevation myocardial infarction): Qualified Codes: I21.3 - ST elevation (STEMI) myocardial infarction of unspecified site Francis Welch MD Dec 10, 2017 13:08
[2017-12-10] MEDS ORDERED: DEXTROSE 50% IN WATER 50 ML VIAL(D50) IV PUSH PRN (13:45)
[2017-12-10] MEDS ORDERED: GLUCAGON 1 MG/ML VIAL OTHER PRN (13:45)
--- NOTE | 2017-12-10 16:24 | ECHRPT ---
Indication: CORONARY ATHEROSCLEROSIS CONCLUSIONS Normal left ventricular size. Mild concentric left ventricular hypertrophy. The left ventricular systolic function is normal with an estimated ejection fraction of 55%. Normal wall motion. Trace to mild mitral valve regurgitation. There is trace tricuspid valve regurgitation. BP: 113 / 72 HR: 91 Rhythm: MEASUREMENTS (Male / Female) Normal Values Technical Quality:Good 2D ECHO LV Diastolic Diameter PLAX 4.1 cm 4.2 - 5.9 / 3.9 - 5.3 cm LV Systolic Diameter PLAX 3.0 cm IVS Diastolic Thickness 1.2 cm 0.6 - 1.0 / 0.6 - 0.9 cm LVPW Diastolic Thickness 0.8 cm 0.6 - 1.0 / 0.6 - 0.9 cm LV Relative Wall Thickness 0.5 RV Internal Dim ED PLAX 1.8 cm LA Systolic Diameter LX 3.2 cm 3.0 - 4.0 / 2.7 - 3.8 cm DOPPLER Mitral E Point Velocity 72.1 cm/s Mitral A Point Velocity 67.6 cm/s Mitral E to A Ratio 1.1 TR Peak Velocity 231.0 cm/s TR Peak Gradient 21.3 mmHg FINDINGS LEFT VENTRICLE Normal left ventricular size. Mild concentric left ventricular hypertrophy. The left ventricular systolic function is normal with an estimated ejection fraction of 55%. Normal wall motion. RIGHT VENTRICLE Normal right ventricular size and systolic function. LEFT ATRIUM The left atrial size is normal. RIGHT ATRIUM The right atrial size is normal. ATRIAL SEPTUM Normal atrial septal thickness without atrial level shunting by limited color doppler interrogation. AORTA The aortic root and proximal ascending aorta are normal in size on limited imaging. MITRAL VALVE Trace to mild mitral valve regurgitation. AORTIC VALVE Trileaflet aortic valve. No aortic valve stenosis or regurgitation. TRICUSPID VALVE There is trace tricuspid valve regurgitation. PULMONARY VALVE The pulmonary valve is not well visualized. VESSELS The inferior vena cava is normal in size. PERICARDIUM No pericardial effusion. Sridhar Parra MD (Electronically Signed) Final Date:10 December 2017 16:23
[2017-12-10] MEDS: SODIUM CHLOR 0.9% 1000 ML INJ 1,000 ML IV SCH (17:00)
--- NOTE | 2017-12-10 17:01 | RADRPT ---
EXAM DATE/TIME: 12/10/2017 16:31 [place] COMPARISON: No previous studies available for comparison. INDICATIONS : Left hip pain post fall this morning MEDICAL HISTORY : None. SURGICAL HISTORY : None. ENCOUNTER: Initial ACUITY: 1 day PAIN SCORE: 10/10 LOCATION: Left entire hip FINDINGS: Examination of the left hip was performed with AP Pelvis. The primary and secondary trabecular patte rn of the femoral neck is intact. The hip joint is of normal width without significant sclerosis or bony hypertrophy. The acetabulum is grossly intact. CONCLUSION: Unremarkable examination of the left hip. Dave Garrett MD on December 10, 2017 at 16:57 Board Certified Radiologist. This report was verified electronically.
[2017-12-10] MEDS: INSULIN ASPART SUPPLEMENTAL SCALE SQ SCH ×2 (17:17→21:49)
[2017-12-10] MEDS: INSULIN GLARGINE 1,000 UNITS/10 ML VIAL SQ SCH (21:00)
[2017-12-10] MEDS ORDERED: INSULIN DETEMIR 100 UNITS/ML VIAL SQ SCH (21:00)
[2017-12-10] MEDS ORDERED: ATORVASTATIN 10 MG TAB PO SCH (21:00)
[2017-12-10] MEDS ORDERED: oxyCODONE/ACETAMINOPHEN 5 MG/325 MG TAB PO PRN (22:00)
[2017-12-10] MEDS: oxyCODONE/ACETAMINOPHEN 10 MG/325 MG TAB PO PRN (22:25)
[2017-12-11] VITALS (25 sets, daily range): BP systolic 80–114; BP diastolic 50–78; PULSE 62–87; RESP 12–20; TEMP 97.2–99.8; O2SAT 93–97
[2017-12-11] MEDS: oxyCODONE/ACETAMINOPHEN 10 MG/325 MG TAB PO PRN (02:59)
[2017-12-11] MEDS: SODIUM CHLOR 0.9% 1000 ML INJ 1,000 ML IV SCH ×3 (03:00→23:00)
[2017-12-11] MEDS ORDERED: SODIUM CHLORID 0.9% 500 ML INJ 500 ML IV ONE (03:30)
[2017-12-11 04:13] LABS: BASOPHIL % 0.2 % (0.0-2.0); EOSINOPHIL % 0.4 % (0.0-4.0); HEMATOCRIT 32.3 % (35.0-46.0); LYMPHOCYTE # 2.7 TH/MM3 (1.0-4.8); MEAN CELL VOLUME 83.3 FL (80.0-100.0); MEAN CORPUSCULAR HEMOGLOBIN 28.4 PG (27.0-34.0); MEAN CORPUSCULAR HGB CONC 34.1 % (32.0-36.0); MEAN PLATELET VOLUME 7.9 FL (7.0-11.0); MONO % 6.8 % (0.0-8.0); MONOCYTE # 0.6 TH/MM3 (0-0.9); NEUT % 59.6 % (16.0-70.0); PLATELET COUNT 210 TH/MM3 (150-450); RED BLOOD COUNT 3.87 MIL/MM3 (4.00-5.30); RED CELL DISTRIBUTION WIDTH 14.5 % (11.6-17.2); WHITE BLOOD COUNT 8.3 TH/MM3 (4.0-11.0)
[2017-12-11 04:32] LABS: BICARBONATE 21.4 MEQ/L (21.0-32.0); BLOOD UREA NITROGEN 11 MG/DL (7-18); CALCIUM 7.3 MG/DL (8.5-10.1); CHLORIDE 109 MEQ/L (98-107); CHOLESTEROL 182 MG/DL (120-200); CHOLESTEROL/ HDL RATIO 4.85 RATIO; CREATININE 0.79 MG/DL (0.50-1.00); GLOMERULAR FILTRATION RATE 91 ML/MIN (>89); GLUCOSE,RANDOM 197 MG/DL (74-106); HDL CHOLESTEROL 37.5 MG/DL (40.0-60.0); LDL CHOLESTEROL 104 MG/DL (0-99); SODIUM (NA) 139 MEQ/L (136-145); TRIGLYCERIDES 204 MG/DL (42-150)
[2017-12-11 04:54] LABS: CALCIUM-PROTEIN CORRECTED 8.1 MG/DL (8.5-10.1); TOTAL PROTEIN 5.7 GM/DL (6.4-8.2)
[2017-12-11] MEDS: INSULIN ASPART SUPPLEMENTAL SCALE SQ SCH ×4 (08:00→21:52)
[2017-12-11] MEDS: INSULIN ASPART 1,000 UNITS/10 ML VIAL SQ SCH ×3 (08:00→16:56)
[2017-12-11] MEDS: SODIUM CHLORIDE 0.9% FLUSH 10 ML FLUSH IV FLUSH SCH ×2 (08:38→21:00)
[2017-12-11] MEDS: TICAGRELOR 90 MG TAB PO SCH ×2 (08:40→21:52)
[2017-12-11] MEDS: ASPIRIN EC 81 MG TABEC PO SCH (08:40)
--- NOTE | 2017-12-11 10:28 | PD.CARD.PN ---
Subjective Subjective Remarks Complains of bilateral CP, increases with deep inspiration. Feels dyspneic intermittently. No cough, dizziness, palpitations. Objective Medications Item Value Date Time Ticagrelor 90 mg 12/11/17 0900 (Brilinta) BID/PO 12/11/17 0840 Atorvastatin 10 mg 12/10/17 2100 Calcium HS/PO 12/10/17 2147 (Lipitor) Aspirin 81 mg 12/10/17 0900 (Ecotrin Ec) DAILY/PO 12/11/17 0840 Current Medications Medications (Trade) Dose Ordered Sig/Estelle Route Start Time Stop Time Status Last Admin (NS Flush) 2 ml UNSCH PRN IV FLUSH 12/10/17 06:45 (NS Flush) 2 ml BID IV FLUSH 12/10/17 09:00 12/10/17 21:47 (Tylenol) 325 mg Q4H PRN PO 12/10/17 06:45 12/10/17 21:47 (Brilinta) 90 mg BID PO 12/11/17 09:00 12/11/17 08:40 (Atropine Inj) 0.5 mg UNSCH PRN IV PUSH 12/10/17 06:45 (Zofran Inj) 4 mg Q4H PRN IV PUSH 12/10/17 06:45 (Lipitor) 10 mg HS PO 12/10/17 21:00 12/10/17 21:47 (Ecotrin Ec) 81 mg DAILY PO 12/10/17 09:00 12/11/17 08:40 (NovoLOG INJ) 30 units TIDAC SQ 12/10/17 12:00 12/11/17 08:00 (D50w (Vial) Inj) 50 ml UNSCH PRN IV PUSH 12/10/17 13:45 (Glucagon Inj) 1 mg UNSCH PRN OTHER 12/10/17 13:45 (NovoLOG SUPPLEMENTAL SCALE) 1 ACHS SLIDING SCALE SQ 12/10/17 17:00 12/11/17 08:00 Sodium Chloride 1,000 ml @ 100 mls/hr Q10H IV 12/10/17 17:00 12/11/17 03:00 (Lantus Inj) 20 units HS SQ 12/10/17 21:00 12/10/17 21:00 Vital Signs / I&O Vital Signs Date Time Temp Pulse Resp B/P (MAP) Pulse Ox O2 Delivery O2 Flow Rate FiO2 12/11/17 09:26 97 Nasal Cannula 1.00 12/11/17 09:00 81 12/11/17 08:00 63 12/11/17 07:00 67 12/11/17 07:00 98.7 65 16 95/77 (83) 97 12/11/17 06:00 76 12/11/17 05:33 69 12/11/17 04:00 70 12/11/17 04:00 97.9 63 12 80/50 (60) 97 12/11/17 03:00 62 12/11/17 02:00 62 12/11/17 01:00 68 12/11/17 00:35 72 12/11/17 00:00 97.8 68 12 85/62 (70) 96 12/10/17 23:00 76 12/10/17 22:00 66 12/10/17 21:00 64 12/10/17 20:18 72 12/10/17 20:00 98.3 77 12 104/74 (84) 96 12/10/17 18:36 67 12/10/17 17:08 74 12/10/17 16:00 75 12/10/17 15:48 97.6 75 16 118/81 (93) 98 12/10/17 15:48 63 12/10/17 14:01 90 12/10/17 13:10 80 12/10/17 12:24 60 12/10/17 11:19 98.0 89 16 113/72 (86) 96 12/10/17 11:19 91 I/O 12/10/17 12/10/17 12/10/17 12/11/17 12/11/17 12/11/17 07:00 15:00 23:00 07:00 15:00 23:00 Intake Total 730 ml 240 ml Output Total 700 ml Balance 30 ml 240 ml Intake Oral 480 ml 240 ml IV Total 250 ml Output Urine Total 700 ml Physical Exam GENERAL: Well developed, well nourished. No acute distress. HEENT: Jugular venous pressure is normal. CHEST: Lungs clear to auscultation anteriorly. CARDIAC: Regular rate and rhythm without S3, S4, or murmur, rub. ABDOMEN: Soft, nontender, no hepatosplenomegaly. Bowel sounds present. EXTREMITIES: No clubbing, cyanosis, or edema. Right groin nontender, no hematoma. Laboratory Laboratory Tests Test 12/10/17 11:42 12/11/17 04:01 Blood Urea Nitrogen 13 MG/DL 11 MG/DL Creatinine 0.74 MG/DL 0.79 MG/DL Random Glucose 248 MG/DL 197 MG/DL Total Protein 6.2 GM/DL 5.7 GM/DL Calcium Level 7.4 MG/DL 7.3 MG/DL Sodium Level 137 MEQ/L 139 MEQ/L Potassium Level 4.4 MEQ/L 4.2 MEQ/L Chloride Level 106 MEQ/L 109 MEQ/L Carbon Dioxide Level 22.5 MEQ/L 21.4 MEQ/L Anion Gap 9 MEQ/L 9 MEQ/L Estimat Glomerular Filtration Rate 99 ML/MIN 91 ML/MIN Protein Corrected Calcium 7.9 MG/DL 8.1 MG/DL White Blood Count 8.3 TH/MM3 Red Blood Count 3.87 MIL/MM3 Hemoglobin 11.0 GM/DL Hematocrit 32.3 % Mean Corpuscular Volume 83.3 FL Mean Corpuscular Hemoglobin 28.4 PG Mean Corpuscular Hemoglobin Concent 34.1 % Red Cell Distribution Width 14.5 % Platelet Count 210 TH/MM3 Mean Platelet Volume 7.9 FL Neutrophils (%) (Auto) 59.6 % Lymphocytes (%) (Auto) 33.0 % Monocytes (%) (Auto) 6.8 % Eosinophils (%) (Auto) 0.4 % Basophils (%) (Auto) 0.2 % Neutrophils # (Auto) 5.0 TH/MM3 Lymphocytes # (Auto) 2.7 TH/MM3 Monocytes # (Auto) 0.6 TH/MM3 Eosinophils # (Auto) 0.0 TH/MM3 Basophils # (Auto) 0.0 TH/MM3 CBC Comment DIFF FINAL Differential Comment Triglycerides Level 204 MG/DL Cholesterol Level 182 MG/DL LDL Cholesterol 104 MG/DL HDL Cholesterol 37.5 MG/DL Cholesterol/HDL Ratio 4.85 RATIO Assessment and Plan Problem List: (1) STEMI (ST elevation myocardial infarction) ICD Codes: I21.3 - ST elevation (STEMI) myocardial infarction of unspecified site Status: Acute Plan: Overall stable overnight. Some recurrent CP this morning, though not c/ w presenting angina and increases with inspiration. BP's too low for beta maryjo or MARYANN-I. EF normal by echo. No CHF. REC IVF recheck EKG stat PRN morphine for the CP continue Brilinta, aspirin Code Status full code Discussed Condition With patient Problem Qualifiers (1) STEMI (ST elevation myocardial infarction): Qualified Codes: I21.11 - ST elevation (STEMI) myocardial infarction involving right coronary artery Sridhar Parra MD Dec 11, 2017 10:28
[2017-12-11] MEDS ORDERED: SODIUM CHLOR 0.9% 250 ML INJ 250 ML IV ONE (10:30)
[2017-12-11] MEDS ORDERED: MORPHINE SULFATE 8 MG/ML INJ IV PUSH ONE (10:30)
--- NOTE | 2017-12-11 11:42 | HHI.PR ---
Subjective Remarks Follow-up ST elevation [place]/C2 fracture/hypotension 12/11/17-patient seen and examined, she complains of neck as well as chest pain. BP soft and low requiring NS bolus overnight Objective Vitals Vital Signs Date Time Temp Pulse Resp B/P (MAP) Pulse Ox O2 Delivery O2 Flow Rate FiO2 12/11/17 10:56 97.2 73 20 114/78 (90) 97 12/11/17 10:00 73 12/11/17 09:26 97 Nasal Cannula 1.00 12/11/17 09:00 81 12/11/17 08:00 63 12/11/17 07:00 67 12/11/17 07:00 98.7 65 16 95/77 (83) 97 12/11/17 06:00 76 12/11/17 05:33 69 12/11/17 04:00 70 12/11/17 04:00 97.9 63 12 80/50 (60) 97 12/11/17 03:00 62 12/11/17 02:00 62 12/11/17 01:00 68 12/11/17 00:35 72 12/11/17 00:00 97.8 68 12 85/62 (70) 96 12/10/17 23:00 76 12/10/17 22:00 66 12/10/17 21:00 64 12/10/17 20:18 72 12/10/17 20:00 98.3 77 12 104/74 (84) 96 12/10/17 18:36 67 12/10/17 17:08 74 12/10/17 16:00 75 12/10/17 15:48 97.6 75 16 118/81 (93) 98 12/10/17 15:48 63 12/10/17 14:01 90 12/10/17 13:10 80 12/10/17 12:24 60 I/O 12/10/17 12/10/17 12/10/17 12/11/17 12/11/17 12/11/17 07:00 15:00 23:00 07:00 15:00 23:00 Intake Total 730 ml 240 ml Output Total 700 ml Balance 30 ml 240 ml Intake Oral 480 ml 240 ml IV Total 250 ml Output Urine Total 700 ml Result Diagram: 12/11/1740012/11/171 Imaging Last Impressions Hip and Pelvis X-Ray 12/10/17 0000 Signed Impressions: Service Date/Time: Sunday, December 10, 2017 16:31 - CONCLUSION: Unremarkable examination of the left hip. Dave Garrett MD Head CT 12/10/17 0000 Signed Impressions: Service Date/Time: Sunday, December 10, 2017 05:03 - CONCLUSION: 1. No acute intracranial abnormality. Gabriel Hernández MD Chest CT 12/10/17 0000 Signed Impressions: Service Date/Time: Sunday, December 10, 2017 05:07 - CONCLUSION: 1. No CT evidence for significant acute traumatic injury in the chest. 2. Coronary artery calcifications. Gabriel Hernández MD Cervical Spine CT 12/10/17 0000 Signed Impressions: Service Date/Time: Sunday, December 10, 2017 05:03 - CONCLUSION: 1. Subtle nondisplaced fracture involving the anterior tubercle of the left C2 transverse process. Fracture does not appear to extend to the transverse foramen. Gabriel Hernández MD Objective Remarks GENERAL: NAD SKIN: Warm and dry. HEAD: Normocephalic. EYES: No scleral icterus. No injection or drainage. NECK: Supple, trachea midline. No JVD or lymphadenopathy.Neck collar in place CARDIOVASCULAR: Regular rate and rhythm without murmurs, gallops, or rubs. RESPIRATORY: Breath sounds equal bilaterally. No accessory muscle use. GASTROINTESTINAL: Abdomen soft, non-tender, nondistended. MUSCULOSKELETAL: No cyanosis, or edema. BACK: Nontender without obvious deformity. No CVA tenderness. A/P Problem List: (1) Traumatic closed fracture of C2 vertebra with minimal displacement ICD Code: S12.100A - Unspecified displaced fracture of second cervical vertebra , initial encounter for closed fracture (2) STEMI (ST elevation myocardial infarction) ICD Code: I21.3 - ST elevation (STEMI) myocardial infarction of unspecified site Status: Acute (3) Hyperlipidemia ICD Code: E78.5 - Hyperlipidemia, unspecified (4) Hypotension ICD Code: I95.9 - Hypotension, unspecified (5) Diabetes mellitus, type 2 ICD Code: E11.9 - Type 2 diabetes mellitus without complications Assessment and Plan 57 yrs old female with ST elevation [place] Management per cardiology Status Post PCI Continue with Brilinta 90 mg twice a day, aspirin 81 mg daily, Lipitor 10 mg at bedtime and lisinopril 5 mg daily Nondisplaced fracture C2 transverse process Cervical spine noted and review by me with finding of subtle nondisplaced fracture involving the anterior tubercle of the left C2 transverse process Currently neck collar in place Consult neurosurgery Hypotension 2/2 Narcotics use Continue with IVF hydration Judicious use of Narcotic Hyperlipidemia LDL of 104 Start Statin and Check LFTs Mechanical fall Head CT without any acute finding CT chest without any acute finding cervical spine noted and review--see above treatment PT to treat and eval Hip pain Xray ruled out fracture Tylenol PRN PT to treat Diabetes type 2 continue outpatient medications including basal insulin ISS and Hemoglobin A1c pending DVT prophylaxis: B-SCDs Problem Qualifiers (1) STEMI (ST elevation myocardial infarction): Qualified Codes: I21.11 - ST elevation (STEMI) myocardial infarction involving right coronary artery Francis Welch MD Dec 11, 2017 11:42
[2017-12-11 12:11] LABS: HEMOGLOBIN A1C 10.4 % (4.3-6.0)
[2017-12-11] MEDS: NITROGLYCERIN 2% OINT 1 GM PACKET TOPICAL SCH ×3 (12:19→23:39)
[2017-12-11 12:58] LABS: ALBUMIN 2.7 GM/DL (3.4-5.0); DIRECT BILIRUBIN ADULT 0.1 MG/DL (0.0-0.2)
[2017-12-11 13:00] LABS: INDIRECT BILIRUBIN 0.4 MG/DL (0.0-0.8); TOTAL BILIRUBIN ADULT 0.5 MG/DL (0.2-1.0); TOTAL PROTEIN 5.9 GM/DL (6.4-8.2)
[2017-12-11] MEDS ORDERED: ALPRAZolam 0.25 MG TAB PO PRN (16:00)
--- NOTE | 2017-12-11 17:06 | PD.CONS ---
History of Present Illness Service Neurosurgery Consult Requested By Medicine service Reason for Consult Cervical fracture Primary Care Physician Unknown Diagnoses: History of Present Illness 57-year-old lady with a history of diabetes states that she woke up early this morning and felt somewhat dizzy. She checked her blood glucose and it was 370. She gave herself and injection of insulin and got up to go to the bathroom and fell and struck her right head and chest and ribs. She then got up and walked again and fell towards her left side. There is no definite loss of consciousness. She did not have any nausea or vomiting. She has experienced neck and mid to upper thoracic region pain radiating to the right lateral chest since the falls. She came to the emergency room and states that she experienced a pressure type feeling in her chest. Her EKG revealed inferior ST elevation. She was taken emergently to the cardiac catheter lab for PCI. She has had 2 [employer] cardiac stents placed. She continues to complain of a pressure type feeling in her chest as well as occasional shortness of breath. Discussion with the patient's nurse reveals that the carton maker is aware of this, obtained a follow-up EKG this morning which does not reveal any significant problems. A CT scan of the neck was obtained which revealed a nondisplaced small C2 transverse process fracture. Neurosurgery consultation has thus been requested. She complains of occasional paresthesias in the hands and feet. No significant shocklike feeling in the extremities. She states that she has significant neck pain with radiation to the back of the head and complains of intermittent headache. She complains of urinary hesitancy without incontinence. No bowel dysfunction. No blurred vision diplopia. No confusion. Review of Systems Constitutional: COMPLAINS OF: Dizziness, DENIES: Fatigue Eyes: DENIES: Blurred vision, Diplopia Ears, nose, mouth, throat: DENIES: Hearing loss, Vertigo Respiratory: COMPLAINS OF: Shortness of breath, DENIES: Cough, Wheezing Cardiovascular: COMPLAINS OF: Chest pain, DENIES: Palpitations Gastrointestinal: DENIES: Abdominal pain, Nausea, Vomiting Musculoskeletal: COMPLAINS OF: Muscle aches, Back pain, Neck pain, DENIES: Joint pain Hematologic/lymphatic: DENIES: Bruising Neurologic: COMPLAINS OF: Headache Psychiatric: COMPLAINS OF: Anxiety, DENIES: Confusion Past Family Social History Allergies: Coded Allergies: aspirin (Verified Allergy, Unknown, 12/10/17) famotidine (Verified Allergy, Unknown, 12/10/17) insulin detemir (Verified Allergy, Unknown, Diarrhea, 12/10/17) PT STATED THAT THIS MEDICATION DISAGREES WITH HER, AND GIVES HER DIARRHEA lisinopril (Verified Allergy, Unknown, Itching, 12/10/17) FACIAL SWELLING AND ITCHING metoprolol (Verified Allergy, Unknown, 12/10/17) Past Medical History Diabetes type 2 Coronary artery disease Hypertension Past Surgical History Hysterectomy Shoulder surgery Reported Medications Reported Meds & Active Scripts Active Reported Lantus Inj (Insulin Glargine) 1,000 Unit/10 Ml Vial 20 Units SQ HS Humalog Inj (Insulin Human Lispro) 1,000 Unit/10 Ml Vial 30 Units SQ TIDAC Family History Positive coronary artery disease Social History Does not smoke cigarettes. No alcohol Physical Exam Vital Signs Vital Signs Date Time Temp Pulse Resp B/P (MAP) Pulse Ox O2 Delivery O2 Flow Rate FiO2 12/11/17 16:08 98.0 70 16 113/72 (86) 93 12/11/17 12:00 76 12/11/17 11:00 68 12/11/17 10:56 97.2 73 20 114/78 (90) 97 12/11/17 10:00 73 12/11/17 09:26 97 Nasal Cannula 1.00 12/11/17 09:00 81 12/11/17 08:00 63 12/11/17 07:00 67 12/11/17 07:00 98.7 65 16 95/77 (83) 97 12/11/17 06:00 76 12/11/17 05:33 69 12/11/17 04:00 70 12/11/17 04:00 97.9 63 12 80/50 (60) 97 12/11/17 03:00 62 12/11/17 02:00 62 12/11/17 01:00 68 12/11/17 00:35 72 12/11/17 00:00 97.8 68 12 85/62 (70) 96 12/10/17 23:00 76 12/10/17 22:00 66 12/10/17 21:00 64 12/10/17 20:18 72 12/10/17 20:00 98.3 77 12 104/74 (84) 96 12/10/17 18:36 67 12/10/17 17:08 74 Physical Exam GENERAL: This is a well-nourished, well-developed patient, no apparent distress. SKIN: No abrasions, contusion, rash noted. Skin warm and dry. HEAD: Atraumatic. Normocephalic. No temporal or scalp tenderness. EYES: Sclerae are clear and nonicteric ENT: No facial edema or ecchymosis. No periorbital edema. No CSF otorrhea or rhinorrhea. No palpable facial fracture or deformity. NECK: Trachea midline. No cervical spine tenderness. CARDIOVASCULAR: Regular rate and rhythm without murmurs, gallops, or rubs. RESPIRATORY: Clear to auscultation. Breath sounds equal bilaterally. No wheezes , rales, or rhonchi. GASTROINTESTINAL: Abdomen soft, non-tender, nondistended. No hepato-splenomegaly , or palpable masses. No guarding. MUSCULOSKELETAL: Extremities without cyanosis, or edema. No joint tenderness, or edema noted. No calf tenderness. Dorsalis pedis pulses 2+ bilateral Moderate tenderness over the right mid to lower lateral chest wall. No crepitance.. Moderate right greater than left cervical paraspinous muscle tenderness. Moderate tenderness at the cervical occipital and cervical thoracic regions on the right. Cervical range of motion approximately 30 range of motion, 50 flexion- extension was some diffuse neck tenderness. No significant tenderness over the lumbar midline or paraspinous musculature. No bilateral hip tenderness. No specific pain with lower extremity joint range of motion. NEUROLOGICAL: Awake and alert Oriented X 3 Speech is clear Conversant and appropriate Follow simple commands well Answers questions appropriately Reasonable judgment and insight Recent and remote memory are intact Appears rather anxious Pupils are equal and reactive to accommodation. Extra-ocular movements, visual dobbs to confrontation, facial sensorimotor, tongue, palate, sternocleidomastoid testing, hearing to finger rub testing, and bilateral shoulder shrug are all intact. Sensation is intact to light touch in all extremities Strength normal major flexion and extension groups all extremities Anastasia's absent bilaterally No ankle clonus Plantar responses absent bilateral Fine motor movements intact upper extremities Laboratory Laboratory Tests Test 12/11/17 04:01 White Blood Count 8.3 Red Blood Count 3.87 Hemoglobin 11.0 Hematocrit 32.3 Mean Corpuscular Volume 83.3 Mean Corpuscular Hemoglobin 28.4 Mean Corpuscular Hemoglobin Concent 34.1 Red Cell Distribution Width 14.5 Platelet Count 210 Mean Platelet Volume 7.9 Neutrophils (%) (Auto) 59.6 Lymphocytes (%) (Auto) 33.0 Monocytes (%) (Auto) 6.8 Eosinophils (%) (Auto) 0.4 Basophils (%) (Auto) 0.2 Neutrophils # (Auto) 5.0 Lymphocytes # (Auto) 2.7 Monocytes # (Auto) 0.6 Eosinophils # (Auto) 0.0 Basophils # (Auto) 0.0 CBC Comment DIFF FINAL Differential Comment Blood Urea Nitrogen 11 Creatinine 0.79 Random Glucose 197 Total Protein 5.7 Calcium Level 7.3 Sodium Level 139 Potassium Level 4.2 Chloride Level 109 Carbon Dioxide Level 21.4 Anion Gap 9 Estimat Glomerular Filtration Rate 91 Hemoglobin A1c 10.4 Protein Corrected Calcium 8.1 Total Bilirubin 0.5 Direct Bilirubin 0.1 Indirect Bilirubin 0.4 Aspartate Amino Transf (AST/SGOT) 159 Alanine Aminotransferase (ALT/SGPT) 47 Alkaline Phosphatase 69 Albumin 2.7 Triglycerides Level 204 Cholesterol Level 182 LDL Cholesterol 104 HDL Cholesterol 37.5 Cholesterol/HDL Ratio 4.85 Result Diagram: 12/11/1740012/11/17400 Imaging 12/10/2017 CT scan of the head, chest, and cervical spine images are reviewed. There is a small nondisplaced fracture of the left C2 transverse process. No compromise of the foramen transversarium. No definite canal or foraminal compromise although cord not clearly seen at the lower cervical region. No definite rib fracture noted on CT chest. Hip and Pelvis X-Ray 12/10/17 0000 Signed Impressions: Service Date/Time: Sunday, December 10, 2017 16:31 - CONCLUSION: Unremarkable examination of the left hip. Dave Garrett MD Head CT 12/10/17 0000 Signed Impressions: Service Date/Time: Sunday, December 10, 2017 05:03 - CONCLUSION: 1. No acute intracranial abnormality. Gabriel Hernández MD Chest CT 12/10/17 0000 Signed Impressions: Service Date/Time: Sunday, December 10, 2017 05:07 - CONCLUSION: 1. No CT evidence for significant acute traumatic injury in the chest. 2. Coronary artery calcifications. Gabriel Hernández MD Cervical Spine CT 12/10/17 0000 Signed Impressions: Service Date/Time: Sunday, December 10, 2017 05:03 - CONCLUSION: 1. Subtle nondisplaced fracture involving the anterior tubercle of the left C2 transverse process. Fracture does not appear to extend to the transverse foramen. Gabriel Hernández MD Assessment and Plan Assessment and Plan Impression: 1. Small nondisplaced left C2 transverse process fracture. 2. No definite evidence of cervical canal compromise although lower cervical cord not clearly seen on the CT scan. She has mild numbness and paresthesias primarily in the distal upper and lower extremities. No definite long tract findings on exam. Recommendations: Findings were discussed with the patient. No definite cervical spine instability, but due to the degree of pain with motion and some mild paresthesias in the extremities would prefer to better assess for vertebral body or ligament injury or canal or foraminal compromise with an MRI. Discussed with MRI in regards to imaging following stent placement. Discussed with nursing staff. She is quite anxious. Xanax as needed ordered for MRI. We will allow to mobilize out of bed with assistance. Physical therapy May discontinue cervical collar. Aleksander Sweeney MD Dec 11, 2017 17:06
[2017-12-11] MEDS: MORPHINE SULFATE 8 MG/ML INJ IV PUSH PRN (18:26)
--- NOTE | 2017-12-11 18:29 | RADRPT ---
EXAM DATE/TIME: 12/11/2017 17:49 [facility] COMPARISON: No previous studies available for comparison. INDICATIONS : Pain. Head trauma, neck pain. MEDICAL HISTORY : Diabetes mellitus type 2. SURGICAL HISTORY : Hysterectomy. Rotator cuff, right. Coronary artery stent. ENCOUNTER: Initial ACUITY: 1 day PAIN SCORE: 4/10 LOCATION: Paraspinal TECHNIQUE: Multiplanar, multisequence MRI examination of the cervical spine was performed. FINDINGS: VERTEBRAE: Normal vertebral body height. Homogeneous marrow signal. ALIGNMENT: No evidence of subluxation. CORD: Normal configuration and signal. POST FOSSA: The cerebellar tonsils are normal in position. C2-C3: The thecal sac has a normal configuration. There is no evidence of disc herniation or spinal canal s tenosis. The neural foramina are patent bilaterally. C3-C4: Osteophytic ridging without canal stenosis. The neural foramina are patent bilaterally. C4-C5: Osteophytic ridging abuts the thecal sac. No significant canal stenosis. Uncovertebral spurring cause s mild bilateral neural foraminal narrowing. C5-C6: Mild broad-based protrusion abuts the thecal sac. There is some cord flattening and minimal canal vitaliy nosis. Uncovertebral spurring causes mild bilateral foraminal narrowing C6-C7: The thecal sac has a normal configuration. There is no evidence of disc herniation or spinal canal s tenosis. The neural foramina are patent bilaterally. C7-T1: The thecal sac has a normal configuration. There is no evidence of disc herniation or spinal canal s tenosis. The neural foramina are patent bilaterally. CONCLUSION: 1. Osteophytic ridging at C3-4 and C4-5 levels without canal stenosis. 2. Mild broad-based protrusion at C5-6 causing minimal canal stenosis. 3. Scattered neural foraminal narrowing as described above. Francis Mahajan MD on December 11, 2017 at 18:25 Board Certified Radiologist. This report was verified electronically.
[2017-12-11] MEDS: ATORVASTATIN 20 MG TAB PO SCH (21:51)
[2017-12-11] MEDS: INSULIN GLARGINE 1,000 UNITS/10 ML VIAL SQ SCH (21:52)
[2017-12-12] VITALS (19 sets, daily range): BP systolic 100–117; BP diastolic 62–76; PULSE 74–93; RESP 16–20; TEMP 98.4–98.9; O2SAT 96–99
[2017-12-12] MEDS: MORPHINE SULFATE 8 MG/ML INJ IV PUSH PRN ×2 (01:17→10:00)
[2017-12-12] MEDS: NITROGLYCERIN 2% OINT 1 GM PACKET TOPICAL SCH ×2 (05:03)
[2017-12-12] MEDS: INSULIN ASPART SUPPLEMENTAL SCALE SQ SCH ×4 (08:00→20:11)
[2017-12-12] MEDS: INSULIN ASPART 1,000 UNITS/10 ML VIAL SQ SCH ×3 (08:00→17:00)
[2017-12-12] MEDS: SODIUM CHLOR 0.9% 1000 ML INJ 1,000 ML IV SCH (09:00)
[2017-12-12] MEDS: ASPIRIN EC 81 MG TABEC PO SCH (09:11)
[2017-12-12] MEDS: SODIUM CHLORIDE 0.9% FLUSH 10 ML FLUSH IV FLUSH SCH ×2 (09:11→22:27)
[2017-12-12] MEDS: TICAGRELOR 90 MG TAB PO SCH ×2 (09:11→23:03)
--- NOTE | 2017-12-12 09:52 | PD.CARD.PN ---
Subjective Subjective Remarks Complains of continued waxing and waning bilateral achy CP, increases with deep inspiration and with certain movements in bed, relieved mostly with IV morphine. No dyspnea this morning. No cough, dizziness, palpitations. Objective Medications Item Value Date Time Atorvastatin 20 mg 12/11/17 2100 Calcium HS/PO 12/11/17 2151 (Lipitor) Nitroglycerin 1 inch 12/11/17 1200 (Nitroglycerin Q6HR/TOPICAL 12/12/17 0503 2% Oint) Ticagrelor 90 mg 12/11/17 0900 (Brilinta) BID/PO 12/12/17 0911 Aspirin 81 mg 12/10/17 0900 (Ecotrin Ec) DAILY/PO 12/12/17 0911 Current Medications Medications (Trade) Dose Ordered Sig/Estelle Route Start Time Stop Time Status Last Admin (NS Flush) 2 ml UNSCH PRN IV FLUSH 12/10/17 06:45 (NS Flush) 2 ml BID IV FLUSH 12/10/17 09:00 12/12/17 09:11 (Tylenol) 325 mg Q4H PRN PO 12/10/17 06:45 12/10/17 21:47 (Brilinta) 90 mg BID PO 12/11/17 09:00 12/12/17 09:11 (Atropine Inj) 0.5 mg UNSCH PRN IV PUSH 12/10/17 06:45 (Zofran Inj) 4 mg Q4H PRN IV PUSH 12/10/17 06:45 (Ecotrin Ec) 81 mg DAILY PO 12/10/17 09:00 12/12/17 09:11 (NovoLOG INJ) 30 units TIDAC SQ 12/10/17 12:00 12/12/17 08:00 (D50w (Vial) Inj) 50 ml UNSCH PRN IV PUSH 12/10/17 13:45 (Glucagon Inj) 1 mg UNSCH PRN OTHER 12/10/17 13:45 (NovoLOG SUPPLEMENTAL SCALE) 1 ACHS SLIDING SCALE SQ 12/10/17 17:00 12/11/17 21:52 Sodium Chloride 1,000 ml @ 100 mls/hr Q10H IV 12/10/17 17:00 12/11/17 11:12 (Lantus Inj) 20 units HS SQ 12/10/17 21:00 12/11/17 21:52 (Morphine Inj) 5 mg Q4H PRN IV PUSH 12/11/17 11:00 12/12/17 01:17 (Lipitor) 20 mg HS PO 12/11/17 21:00 12/11/17 21:51 (Nitroglycerin 2% Oint) 1 inch Q6HR TOPICAL 12/11/17 12:00 12/12/17 05:03 (Xanax) 0.25 mg Q8H PRN PO 12/11/17 16:00 Vital Signs / I&O Vital Signs Date Time Temp Pulse Resp B/P (MAP) Pulse Ox O2 Delivery O2 Flow Rate FiO2 12/12/17 08:00 98.6 76 18 100/65 (77) 96 12/12/17 08:00 78 12/12/17 05:00 80 12/12/17 04:00 80 12/12/17 03:00 82 12/12/17 03:00 98.6 88 109/62 (78) 96 12/12/17 02:00 84 12/12/17 01:00 74 12/12/17 00:00 92 12/11/17 23:00 76 12/11/17 23:00 99.8 87 112/72 (85) 93 12/11/17 22:00 80 12/11/17 21:00 70 12/11/17 20:00 72 12/11/17 19:00 74 12/11/17 19:00 99.7 87 112/72 (85) 93 12/11/17 17:00 76 12/11/17 17:00 74 12/11/17 16:08 98.0 70 16 113/72 (86) 93 12/11/17 16:00 74 12/11/17 15:00 74 12/11/17 12:00 76 12/11/17 11:00 68 12/11/17 10:56 97.2 73 20 114/78 (90) 97 12/11/17 10:00 73 I/O 12/11/17 12/11/17 12/11/17 12/12/17 12/12/17 12/12/17 07:00 15:00 23:00 07:00 15:00 23:00 Intake Total 240 ml 240 ml 240 ml Output Total 800 ml 400 ml Balance 240 ml -560 ml -160 ml Intake Oral 240 ml 240 ml 240 ml Output Urine Total 800 ml 400 ml Bladder Scan Volume Amount 34 ml Physical Exam GENERAL: Well developed, well nourished. No acute distress. HEENT: Jugular venous pressure is normal. CHEST: Lungs clear to auscultation anteriorly. CARDIAC: Regular rate and rhythm without S3, S4, murmur, rub. ABDOMEN: Soft, nontender, no hepatosplenomegaly. Bowel sounds present. EXTREMITIES: No clubbing, cyanosis, or edema. Assessment and Plan Problem List: (1) STEMI (ST elevation myocardial infarction) ICD Codes: I21.3 - ST elevation (STEMI) myocardial infarction of unspecified site Status: Acute Plan: Overall stable overnight. Ongoing mostly atypical CP's, not c/w presenting angina and increases with inspiration, also with musculoskeletal component, relief mainly from morphine. Repeat EKG yesterday with no significant re-elevation of inferior ST segments. She does have residual severe disease in small vessels (diagonal, distal LAD, distal left circumflex, OM, PDA). BP's too low for beta maryjo or MARYANN-I. EF normal by echo. No CHF. REC change nitro paste to isosorbide continue aspirin, Brilinta increase ambulation in halls Code Status full code Discussed Condition With patient, at length Problem Qualifiers (1) STEMI (ST elevation myocardial infarction): Qualified Codes: I21.11 - ST elevation (STEMI) myocardial infarction involving right coronary artery Sridhar Parra MD Dec 12, 2017 09:52
[2017-12-12] MEDS: ISOSORBIDE MONONITRATE 60 MG TAB PO SCH (10:00)
[2017-12-12] MEDS ORDERED: traMADol HCL 50 MG TAB PO PRN (13:15)
--- NOTE | 2017-12-12 13:16 | EKG ---
Date Performed: 12/11/2017 Time Performed: 11:35:26 PTAGE: 57 years EKG: Sinus rhythm . Inferior infarct - age undetermined Possible anterior infarct - age undetermined Lateral ST-T dinh es may be due to myocardial ischemia Abnormal ECG Compared to PREVIOUS TRACING , acute inferior infarct changes have resolved, but there are still mini mal inferior ST elevation, but they are significantly improved from prior EKG. PREVIOUS TRACIN11/22 05.21 DOCTOR: Richard Yuen Interpretating Date/Time 12/12/2017 13:16:21
--- NOTE | 2017-12-12 13:16 | HHI.PR ---
Subjective Remarks Follow-up ST elevation NE/C2 fracture/hypotension 12/11/17-patient seen and examined, she complains of neck as well as chest pain. BP soft and low requiring NS bolus overnight 12/12/17-patient seen and examined, patient still complained of chest pain with deep inspiration. Now, able to move more her neck. Complains of dysuria. Objective Vitals Vital Signs Date Time Temp Pulse Resp B/P (MAP) Pulse Ox O2 Delivery O2 Flow Rate FiO2 12/12/17 11:15 98.9 84 16 115/76 (89) 96 12/12/17 08:00 98.6 76 18 100/65 (77) 96 12/12/17 08:00 78 12/12/17 05:00 80 12/12/17 04:00 80 12/12/17 03:00 82 12/12/17 03:00 98.6 88 109/62 (78) 96 12/12/17 02:00 84 12/12/17 01:00 74 12/12/17 00:00 92 12/11/17 23:00 76 12/11/17 23:00 99.8 87 112/72 (85) 93 12/11/17 22:00 80 12/11/17 21:00 70 12/11/17 20:00 72 12/11/17 19:00 74 12/11/17 19:00 99.7 87 112/72 (85) 93 12/11/17 17:00 76 12/11/17 17:00 74 12/11/17 16:08 98.0 70 16 113/72 (86) 93 12/11/17 16:00 74 12/11/17 15:00 74 I/O 12/11/17 12/11/17 12/11/17 12/12/17 12/12/17 12/12/17 07:00 15:00 23:00 07:00 15:00 23:00 Intake Total 240 ml 240 ml 240 ml Output Total 800 ml 400 ml Balance 240 ml -560 ml -160 ml Intake Oral 240 ml 240 ml 240 ml Output Urine Total 800 ml 400 ml Bladder Scan Volume Amount 34 ml Result Diagram: 12/11/17 0401 12/11/17 0401 Imaging Last Impressions Cervical Spine MRI 12/11/17 0000 Signed Impressions: Service Date/Time: Monday, December 11, 2017 17:49 - CONCLUSION: 1. Osteophytic ridging at C3-4 and C4-5 levels without canal stenosis. 2. Mild broad-based protrusion at C5-6 causing minimal canal stenosis. 3. Scattered neural foraminal narrowing as described above. Francis Mahajan MD Hip and Pelvis X-Ray 12/10/17 0000 Signed Impressions: Service Date/Time: Sunday, December 10, 2017 16:31 - CONCLUSION: Unremarkable examination of the left hip. Dave Garrett MD Head CT 12/10/17 0000 Signed Impressions: Service Date/Time: Sunday, December 10, 2017 05:03 - CONCLUSION: 1. No acute intracranial abnormality. Gabriel Hernández MD Chest CT 12/10/17 0000 Signed Impressions: Service Date/Time: Sunday, December 10, 2017 05:07 - CONCLUSION: 1. No CT evidence for significant acute traumatic injury in the chest. 2. Coronary artery calcifications. Gabriel Hernández MD Cervical Spine CT 12/10/17 0000 Signed Impressions: Service Date/Time: Sunday, December 10, 2017 05:03 - CONCLUSION: 1. Subtle nondisplaced fracture involving the anterior tubercle of the left C2 transverse process. Fracture does not appear to extend to the transverse foramen. Gabriel Hernández MD Objective Remarks GENERAL: NAD SKIN: Warm and dry. HEAD: Normocephalic. EYES: No scleral icterus. No injection or drainage. NECK: Supple, trachea midline. No JVD or lymphadenopathy. CARDIOVASCULAR: Regular rate and rhythm without murmurs, gallops, or rubs. RESPIRATORY: Breath sounds equal bilaterally. No accessory muscle use. GASTROINTESTINAL: Abdomen soft, non-tender, nondistended. MUSCULOSKELETAL: No cyanosis, or edema. BACK: Nontender without obvious deformity. No CVA tenderness. A/P Problem List: (1) Traumatic closed fracture of C2 vertebra with minimal displacement ICD Code: S12.100A - Unspecified displaced fracture of second cervical vertebra , initial encounter for closed fracture (2) STEMI (ST elevation myocardial infarction) ICD Code: I21.3 - ST elevation (STEMI) myocardial infarction of unspecified site Status: Acute (3) Hyperlipidemia ICD Code: E78.5 - Hyperlipidemia, unspecified (4) Hypotension ICD Code: I95.9 - Hypotension, unspecified (5) Diabetes mellitus, type 2 ICD Code: E11.9 - Type 2 diabetes mellitus without complications Assessment and Plan 57 yrs old female with ST elevation NE Management per cardiology Status Post PCI Continue with Brilinta 90 mg twice a day, aspirin 81 mg daily, Lipitor 10 mg at bedtime and Imdur Per cardiology secondary to low BP, will not start patient on beta maryjo or MARYANN inhibitor Nondisplaced fracture C2 transverse process Cervical spine noted and review by me with finding of subtle nondisplaced fracture involving the anterior tubercle of the left C2 transverse process Appreciate input from neurosurgery Cervical MRI noted PT to treat and eval Hypotension 2/2 Narcotics use Resolved with IVF hydration Hyperlipidemia LDL of 104 Start Statin and Check LFTs Mechanical fall Head CT without any acute finding CT chest without any acute finding cervical spine noted and review--see above treatment PT to treat and eval Hip pain Xray ruled out fracture Tylenol PRN PT to treat Diabetes type 2 continue outpatient medications including basal insulin ISS and Hemoglobin A1c pending Dysuria Check UA and treat accordingly DVT prophylaxis: B-SCDs Discharge Planning Likely discharge in a.m. Problem Qualifiers (1) STEMI (ST elevation myocardial infarction): Qualified Codes: I21.11 - ST elevation (STEMI) myocardial infarction involving right coronary artery Francis Welch MD Dec 12, 2017 13:16
[2017-12-12] MEDS ORDERED: ECASA81 PO (13:18)
[2017-12-12] MEDS ORDERED: BRIL90TA PO (13:18)
[2017-12-12] MEDS ORDERED: ATOR20TA15 PO (13:18)
[2017-12-12] MEDS ORDERED: ISOS60TA PO (13:18)
[2017-12-12 14:30] LABS: BACTERIA, URINE RARE /hpf; BILIRUBIN, URINE NEG (NEG); BLOOD, URINE NEG (NEG); GLUCOSE,URINE NEG (NEG); KETONE, URINE NEG (NEG); MUCUS URINE FEW /lpf (OCC); NITRITE,URINE NEG (NEG); PH, URINE 5.5 (5.0-8.5); SQUAMOUS EPITHELIAL CELL URINE <1 /hpf (0-5); URINE COLOR LIGHT-YELLOW (YELLW/STRAW); URINE LEUKOCYTE ESTERASE MOD (NEG)
--- NOTE | 2017-12-12 16:30 | HHI.NSPN ---
History Chief Complaint: Spasms from back around to the chest. Interval History 12/11: 57-year-old lady with a history of diabetes states that she woke up early this morning and felt somewhat dizzy. She checked her blood glucose and it was 370. She gave herself and injection of insulin and got up to go to the bathroom and fell and struck her right head and chest and ribs. She then got up and walked again and fell towards her left side. There is no definite loss of consciousness. She did not have any nausea or vomiting. She has experienced neck and mid to upper thoracic region pain radiating to the right lateral chest since the falls. She came to the emergency room and states that she experienced a pressure type feeling in her chest. Her EKG revealed inferior ST elevation. She was taken emergently to the cardiac catheter lab for PCI. She has had 2 [employer] cardiac stents placed. She continues to complain of a pressure type feeling in her chest as well as occasional shortness of breath. Discussion with the patient's nurse reveals that the financial assistant is aware of this, obtained a follow-up EKG this morning which does not reveal any significant problems. A CT scan of the neck was obtained which revealed a nondisplaced small C2 transverse process fracture. Neurosurgery consultation has thus been requested. She complains of occasional paresthesias in the hands and feet. No significant shocklike feeling in the extremities. She states that she has significant neck pain with radiation to the back of the head and complains of intermittent headache. She complains of urinary hesitancy without incontinence. No bowel dysfunction. No blurred vision diplopia. No confusion. 12/12: This afternoon the patient is awake and alert visiting with family and watching TV. She does have some neck pain that is more to the right side. She also complains of pain and muscle spams across the upper back and around to the chest. She reports being up in the chair earlier. She denies any pain, numbness , tingling or weakness to the extremities. Exam Results 12/10/17 12/10/17 12/11/17 12/11/17 12/12/17 12/12/17 06:00 18:00 06:00 18:00 06:00 18:00 Intake Total 730 ml 240 ml 240 ml 240 ml 700 ml Output Total 700 ml 1200 ml Balance 30 ml 240 ml 240 ml -960 ml 700 ml Intake Oral 480 ml 240 ml 240 ml 240 ml IV Total 250 ml 700 ml Output Urine Total 700 ml 1200 ml Bladder Scan Volume Amount 34 ml Vital Signs Date Time Temp Pulse Resp B/P (MAP) Pulse Ox O2 Delivery O2 Flow Rate FiO2 12/12/17 15:00 98.4 88 18 117/64 (81) 99 12/12/17 15:00 88 12/12/17 14:00 88 12/12/17 11:15 98.9 84 16 115/76 (89) 96 12/12/17 09:00 84 12/12/17 08:00 98.6 76 18 100/65 (77) 96 12/12/17 08:00 78 12/12/17 05:00 80 12/12/17 04:00 80 12/12/17 03:00 82 12/12/17 03:00 98.6 88 109/62 (78) 96 12/12/17 02:00 84 12/12/17 01:00 74 12/12/17 00:00 92 12/11/17 23:00 76 12/11/17 23:00 99.8 87 112/72 (85) 93 12/11/17 22:00 80 12/11/17 21:00 70 12/11/17 20:00 72 12/11/17 19:00 74 12/11/17 19:00 99.7 87 112/72 (85) 93 12/11/17 17:00 76 12/11/17 17:00 74 12/11/17 16:08 98.0 70 16 113/72 (86) 93 12/11/17 16:00 74 12/11/17 15:00 74 12/11/17 12:00 76 12/11/17 11:00 68 12/11/17 10:56 97.2 73 20 114/78 (90) 97 12/11/17 10:00 73 12/11/17 09:26 97 Nasal Cannula 1.00 12/11/17 09:00 81 12/11/17 08:00 63 12/11/17 07:00 67 12/11/17 07:00 98.7 65 16 95/77 (83) 97 12/11/17 06:00 76 12/11/17 05:33 69 12/11/17 04:00 70 12/11/17 04:00 97.9 63 12 80/50 (60) 97 12/11/17 03:00 62 12/11/17 02:00 62 12/11/17 01:00 68 12/11/17 00:35 72 12/11/17 00:00 97.8 68 12 85/62 (70) 96 12/10/17 23:00 76 12/10/17 22:00 66 12/10/17 21:00 64 12/10/17 20:18 72 12/10/17 20:00 98.3 77 12 104/74 (84) 96 12/10/17 18:36 67 12/10/17 17:08 74 12/10/17 16:00 75 12/10/17 15:48 97.6 75 16 118/81 (93) 98 12/10/17 15:48 63 12/10/17 14:01 90 12/10/17 13:10 80 12/10/17 12:24 60 12/10/17 11:19 98.0 89 16 113/72 (86) 96 12/10/17 11:19 91 12/10/17 10:17 69 12/10/17 08:00 68 12/10/17 08:00 98.0 90 16 117/82 (94) 98 12/10/17 07:14 16 12/10/17 05:53 12/10/17 05:25 63 14 121/70 (87) 100 Nasal Cannula 3.00 12/10/17 04:57 52 14 99/65 (76) 100 Nasal Cannula 2.00 12/10/17 04:50 100 Nasal Cannula 3.00 12/10/17 04:50 100 3.00 12/10/17 04:39 98.4 49 18 82/58 (66) 95 Physical Examination GENERAL: Awake & alert visiting with family & watching TV. Readily interacts. Affect normal. No apparent distress. HEENT: Normocephalic, atraumatic. NECK: Mild midline cervical spine tenderness but moderately TTP along the right paraspinal region down into the trapezius. MUSCULOSKELETAL: LOUISE w/o difficulty but RUE limited due to pain & muscle spasm to the right lateral back & chest wall. Extremities NTTP. No evident deformity or clubbing. TTP along the right trapezius and down along the latissimus dorsi and into the pectoralis major. NEUROLOGICAL: AAOx3. Speech clear & appropriate. Follows commands w/o difficulty. Sensation is intact to light touch to all extremities. Motor strength is 5/5 to all major flexion & extension muscle groups to include the hand intrinsics & extrinsics. No Anastasia's bilaterally. No ankle clonus bilaterally. Slight downward plantar reflex on left but neutral on right. Lab, Micro, Other Results Recent Impressions Cervical Spine MRI 12/11/17 0000 Signed Impressions: Service Date/Time: Monday, December 11, 2017 17:49 - CONCLUSION: 1. Osteophytic ridging at C3-4 and C4-5 levels without canal stenosis. 2. Mild broad-based protrusion at C5-6 causing minimal canal stenosis. 3. Scattered neural foraminal narrowing as described above. Francis Mahajan MD Hip and Pelvis X-Ray 12/10/17 0000 Signed Impressions: Service Date/Time: Sunday, December 10, 2017 16:31 - CONCLUSION: Unremarkable examination of the left hip. Dave Garrett MD Head CT 12/10/17 0000 Signed Impressions: Service Date/Time: Sunday, December 10, 2017 05:03 - CONCLUSION: 1. No acute intracranial abnormality. Gabriel Hernández MD Chest CT 12/10/17 0000 Signed Impressions: Service Date/Time: Sunday, December 10, 2017 05:07 - CONCLUSION: 1. No CT evidence for significant acute traumatic injury in the chest. 2. Coronary artery calcifications. Gabriel Hernández MD Cervical Spine CT 12/10/17 0000 Signed Impressions: Service Date/Time: Sunday, December 10, 2017 05:03 - CONCLUSION: 1. Subtle nondisplaced fracture involving the anterior tubercle of the left C2 transverse process. Fracture does not appear to extend to the transverse foramen. Gabriel Hernández MD Laboratory Tests Test 12/10/17 04:45 12/10/17 04:50 12/10/17 11:42 12/11/17 04:01 White Blood Count 12.4 TH/MM3 8.3 TH/MM3 Red Blood Count 4.99 MIL/MM3 3.87 MIL/MM3 Hemoglobin 14.0 GM/DL 11.0 GM/DL Hematocrit 42.3 % 32.3 % Mean Corpuscular Volume 84.7 FL 83.3 FL Mean Corpuscular Hemoglobin 28.1 PG 28.4 PG Mean Corpuscular Hemoglobin Concent 33.2 % 34.1 % Red Cell Distribution Width 13.7 % 14.5 % Platelet Count 330 TH/MM3 210 TH/MM3 Mean Platelet Volume 8.6 FL 7.9 FL Neutrophils (%) (Auto) 50.2 % 59.6 % Lymphocytes (%) (Auto) 44.4 % 33.0 % Monocytes (%) (Auto) 4.4 % 6.8 % Eosinophils (%) (Auto) 0.7 % 0.4 % Basophils (%) (Auto) 0.3 % 0.2 % Neutrophils # (Auto) 6.2 TH/MM3 5.0 TH/MM3 Lymphocytes # (Auto) 5.5 TH/MM3 2.7 TH/MM3 Monocytes # (Auto) 0.5 TH/MM3 0.6 TH/MM3 Eosinophils # (Auto) 0.1 TH/MM3 0.0 TH/MM3 Basophils # (Auto) 0.0 TH/MM3 0.0 TH/MM3 CBC Comment AUTO DIFF DIFF FINAL Differential Total Cells Counted 100 Neutrophils % (Manual) 57 % Band Neutrophils % 1 % Lymphocytes % 38 % Monocytes % 3 % Basophils % 1 % Neutrophils # (Manual) 7.2 TH/MM3 Differential Comment FINAL DIFF MANUAL Platelet Estimate NORMAL Platelet Morphology Comment NORMAL Red Cell Morphology Comment NORMAL Prothrombin Time 10.7 SEC Prothromb Time International Ratio 1.1 RATIO Activated Partial Thromboplast Time 21.3 SEC Bedside Hemoglobin 13.9 G/DL Bedside Hematocrit 41.0 % Bedside Sodium 137 MMOL/L Bedside Potassium 2.9 MMOL/L Bedside Chloride 100 MMOL/L Bedside Blood Urea Nitrogen 17 MG/DL Bedside Creatinine 1.0 MG/DL Bedside Glucose 295 MG/DL Magnesium Level 1.9 MG/DL Total Creatine Kinase 204 U/L Creatine Kinase MB 4.7 NG/ML Creatine Kinase MB % 2.3 % Troponin I 0.32 NG/ML Blood Urea Nitrogen 13 MG/DL 11 MG/DL Creatinine 0.74 MG/DL 0.79 MG/DL Random Glucose 248 MG/DL 197 MG/DL Total Protein 6.2 GM/DL 5.7 GM/DL Calcium Level 7.4 MG/DL 7.3 MG/DL Sodium Level 137 MEQ/L 139 MEQ/L Potassium Level 4.4 MEQ/L 4.2 MEQ/L Chloride Level 106 MEQ/L 109 MEQ/L Carbon Dioxide Level 22.5 MEQ/L 21.4 MEQ/L Anion Gap 9 MEQ/L 9 MEQ/L Estimat Glomerular Filtration Rate 99 ML/MIN 91 ML/MIN Protein Corrected Calcium 7.9 MG/DL 8.1 MG/DL Hemoglobin A1c 10.4 % Total Bilirubin 0.5 MG/DL Direct Bilirubin 0.1 MG/DL Indirect Bilirubin 0.4 MG/DL Aspartate Amino Transf (AST/SGOT) 159 U/L Alanine Aminotransferase (ALT/SGPT) 47 U/L Alkaline Phosphatase 69 U/L Albumin 2.7 GM/DL Triglycerides Level 204 MG/DL Cholesterol Level 182 MG/DL LDL Cholesterol 104 MG/DL HDL Cholesterol 37.5 MG/DL Cholesterol/HDL Ratio 4.85 RATIO Test 12/12/17 11:55 Urine Color LIGHT-YELLOW Urine Turbidity CLEAR Urine pH 5.5 Urine Specific [place] 1.005 Urine Protein NEG mg/dL Urine Glucose (UA) NEG mg/dL Urine Ketones NEG mg/dL Urine Occult Blood NEG Urine Nitrite NEG Urine Bilirubin NEG Urine Urobilinogen LESS THAN 2.0 MG/DL Urine Leukocyte Esterase MOD Urine RBC 1 /hpf Urine WBC 1 /hpf Urine Squamous Epithelial Cells <1 /hpf Urine Bacteria RARE /hpf Urine Mucus FEW /lpf Microscopic Urinalysis Comment CULT NOT INDICATED Medical Decision Making Impression and Plan Impression: 1. Small nondisplaced left C2 transverse process fracture. 2. No definite evidence of cervical canal compromise although lower cervical cord not clearly seen on the CT scan. She has mild numbness and paresthesias primarily in the distal upper and lower extremities. No definite long tract findings on exam. The patient is doing well today. She continues to have some pain to the right side of the neck. No sensory or motor deficits to the extremities. Probable right cervical strain in addition to the left C2 transverse process fracture. Probable right thoracic wall contusion with spasms limiting patient's use of the RUE. MRI cervical spine demonstrated osteophytic ridging at C3-4 and C4-5 w/o canal stenosis. There is minimal canal stenosis at C5-6 secondary to mild broad-based protrusion. There is scattered neural foraminal narrowing. Upon review by Dr Sweeney he did not see any cord compression, edema or significant stenosis. Plan: Discussed plan of care with patient & family. No need for cervical collar. Mobilise patient w/assistance as needed. PT eval & tx. Pain control. Would recommend a muscle relaxant. From Neurosurgery's perspective the patient is able to be discharged once medically indicated. There is no indication for Neurosurgery follow up as an outpatient. Charly Bonilla Dec 12, 2017 16:30
[2017-12-12] MEDS: INSULIN GLARGINE 1,000 UNITS/10 ML VIAL SQ SCH (20:12)
[2017-12-12] MEDS ORDERED: NITROGLYCERIN 0.3 MG SL 100 TABS/BTL SL PRN (22:00)
--- NOTE | 2017-12-12 22:24 | RADRPT ---
EXAM DATE/TIME: 12/12/2017 22:12 [facility] COMPARISON: CT BRAIN W/O CONTRAST, December 10, 2017, 5:03. INDICATIONS : Vision changes. RADIATION DOSE: 34.51 CTDIvol (mGy) MEDICAL HISTORY : Cardiovascular disease. Diabetes mellitus type 2. Hypercholesterolemia. SURGICAL HISTORY : Hysterectomy. ENCOUNTER: Initial ACUITY: 1 day PAIN SCALE: 0/10 LOCATION: cranial TECHNIQUE: Multiple contiguous axial images were obtained of the head. Using automated exposure control and adj ustment of the mA and/or kV according to patient size, radiation dose was kept as low as reasonably a chievable to obtain optimal diagnostic quality images. DICOM format image data is available electro nically for review and comparison. FINDINGS: CEREBRUM: The ventricles are normal for age. No evidence of midline shift, mass lesion, hemorrhage or acute in farction. No extra-axial fluid collections are seen. POSTERIOR FOSSA: The cerebellum and brainstem are intact. The 4th ventricle is midline. The cerebellopontine angle i s unremarkable. EXTRACRANIAL: The visualized portion of the orbits is intact. SKULL: The calvaria is intact. No evidence of skull fracture. CONCLUSION: No acute intracranial disease. Francis Mahajan MD on December 12, 2017 at 22:20 Board Certified Radiologist. This report was verified electronically.
[2017-12-12] MEDS: ATORVASTATIN 20 MG TAB PO SCH (23:02)
[2017-12-12] MEDS: DOCUSATE SODIUM 50 MG/SENNA 8.6 MG TAB PO SCH (23:03)
[2017-12-13] VITALS: PULSE 114
[2017-12-13 03:43] VITALS: PULSE 83
[2017-12-13 04:40] VITALS: PULSE 82
[2017-12-13 08:00] VITALS: BP 106/59; PULSE 87; RESP 18; TEMP 98; O2SAT 96
[2017-12-13 08:40] LABS: AUTOMATED NEUTROPHIL # 5.5 TH/MM3 (1.8-7.7); BASOPHIL % 0.4 % (0.0-2.0); EOSINOPHIL # 0.1 TH/MM3 (0-0.4); EOSINOPHIL % 0.8 % (0.0-4.0); HEMATOCRIT 30.3 % (35.0-46.0); HEMOGLOBIN 10.2 GM/DL (11.6-15.3); LYMPH % 28.9 % (9.0-44.0); LYMPHOCYTE # 2.5 TH/MM3 (1.0-4.8); MEAN CELL VOLUME 83.6 FL (80.0-100.0); MEAN CORPUSCULAR HEMOGLOBIN 28.3 PG (27.0-34.0); MEAN CORPUSCULAR HGB CONC 33.8 % (32.0-36.0); MEAN PLATELET VOLUME 8.4 FL (7.0-11.0); MONO % 6.2 % (0.0-8.0); MONOCYTE # 0.5 TH/MM3 (0-0.9); NEUT % 63.7 % (16.0-70.0); PLATELET COUNT 221 TH/MM3 (150-450); RED BLOOD COUNT 3.62 MIL/MM3 (4.00-5.30); RED CELL DISTRIBUTION WIDTH 14.2 % (11.6-17.2); WHITE BLOOD COUNT 8.7 TH/MM3 (4.0-11.0)
[2017-12-13] MEDS: TICAGRELOR 90 MG TAB PO SCH (09:16)
[2017-12-13] MEDS: DOCUSATE SODIUM 50 MG/SENNA 8.6 MG TAB PO SCH (09:16)
[2017-12-13] MEDS: ASPIRIN EC 81 MG TABEC PO SCH (09:16)
[2017-12-13] MEDS: INSULIN ASPART 1,000 UNITS/10 ML VIAL SQ SCH ×2 (09:17→12:52)
[2017-12-13] MEDS: INSULIN ASPART SUPPLEMENTAL SCALE SQ SCH ×2 (09:17→12:00)
[2017-12-13] MEDS: ISOSORBIDE MONONITRATE 60 MG TAB PO SCH (09:17)
[2017-12-13] MEDS: SODIUM CHLORIDE 0.9% FLUSH 10 ML FLUSH IV FLUSH SCH (09:18)
--- NOTE | 2017-12-13 09:35 | PD.CARD.PN ---
Subjective Subjective Remarks "all my body aches" Objective Medications Current Medications Medications (Trade) Dose Ordered Sig/Estelle Route Start Time Stop Time Status Last Admin (NS Flush) 2 ml UNSCH PRN IV FLUSH 12/10/17 06:45 (NS Flush) 2 ml BID IV FLUSH 12/10/17 09:00 12/13/17 09:18 (Tylenol) 325 mg Q4H PRN PO 12/10/17 06:45 12/10/17 21:47 (Brilinta) 90 mg BID PO 12/11/17 09:00 12/13/17 09:16 (Atropine Inj) 0.5 mg UNSCH PRN IV PUSH 12/10/17 06:45 (Zofran Inj) 4 mg Q4H PRN IV PUSH 12/10/17 06:45 12/12/17 22:27 (Ecotrin Ec) 81 mg DAILY PO 12/10/17 09:00 12/13/17 09:16 (NovoLOG INJ) 30 units TIDAC SQ 12/10/17 12:00 12/13/17 09:17 (D50w (Vial) Inj) 50 ml UNSCH PRN IV PUSH 12/10/17 13:45 (Glucagon Inj) 1 mg UNSCH PRN OTHER 12/10/17 13:45 (NovoLOG SUPPLEMENTAL SCALE) 1 ACHS SLIDING SCALE SQ 12/10/17 17:00 12/13/17 09:17 (Lantus Inj) 20 units HS SQ 12/10/17 21:00 12/11/17 21:52 (Lipitor) 20 mg HS PO 12/11/17 21:00 12/12/17 23:02 (Xanax) 0.25 mg Q8H PRN PO 12/11/17 16:00 (Imdur) 60 mg DAILY@0700 PO 12/12/17 10:00 12/13/17 09:17 (Ultram) 50 mg Q4H PRN PO 12/12/17 13:15 12/12/17 15:18 (Cornish 7.5-325 Mg) 1 tab Q4H PRN PO 12/12/17 13:15 (Jacqui-Colace) 1 tab BID PO 12/12/17 21:00 12/13/17 09:16 (Nitrostat Sl) 0.3 mg Q5M PRN SL 12/12/17 22:00 12/12/17 21:59 (Lopressor) 12.5 mg Q12HR PO 12/13/17 21:00 UNV Vital Signs / I&O Vital Signs Date Time Temp Pulse Resp B/P (MAP) Pulse Ox O2 Delivery O2 Flow Rate FiO2 12/13/17 04:40 82 12/13/17 03:43 83 12/13/17 00:00 114 12/12/17 23:00 88 20 112/64 (80) 98 12/12/17 21:10 81 12/12/17 20:00 98.7 93 18 111/69 (83) 96 12/12/17 18:00 88 12/12/17 17:00 90 12/12/17 16:00 85 12/12/17 15:00 98.4 88 18 117/64 (81) 99 12/12/17 15:00 88 12/12/17 14:00 88 12/12/17 11:15 98.9 84 16 115/76 (89) 96 12/12/17 11:00 80 12/12/17 10:00 86 I/O 12/12/17 12/12/17 12/12/17 12/13/17 12/13/17 12/13/17 07:00 15:00 23:00 07:00 15:00 23:00 Intake Total 240 ml 1300 ml 240 ml Output Total 400 ml 1050 ml 1000 ml Balance -160 ml 250 ml -760 ml Intake Oral 240 ml 600 ml 240 ml IV Total 700 ml Output Urine Total 400 ml 1050 ml 1000 ml Physical Exam GENERAL: Well-nourished, well-developed patient. SKIN: Warm and dry. HEAD: Normocephalic. EYES: No scleral icterus. No injection or drainage. NECK: Supple, trachea midline. No JVD or lymphadenopathy. CARDIOVASCULAR: Regular rate and rhythm without murmurs, gallops, or rubs. RESPIRATORY: Breath sounds equal bilaterally. No accessory muscle use. GASTROINTESTINAL: Abdomen soft, non-tender, nondistended. EXTREMITIES: No cyanosis, or edema. NEUROLOGICAL: Awake, alert, and oriented x 3. Non-focal. Laboratory Laboratory Tests Test 12/12/17 11:55 12/13/17 06:23 Urine Color LIGHT-YELLOW Urine Turbidity CLEAR Urine pH 5.5 Urine Specific [place] 1.005 Urine Protein NEG mg/dL Urine Glucose (UA) NEG mg/dL Urine Ketones NEG mg/dL Urine Occult Blood NEG Urine Nitrite NEG Urine Bilirubin NEG Urine Urobilinogen LESS THAN 2.0 MG/DL Urine Leukocyte Esterase MOD Urine RBC 1 /hpf Urine WBC 1 /hpf Urine Squamous Epithelial Cells <1 /hpf Urine Bacteria RARE /hpf Urine Mucus FEW /lpf Microscopic Urinalysis Comment CULT NOT INDICATED White Blood Count 8.7 TH/MM3 Red Blood Count 3.62 MIL/MM3 Hemoglobin 10.2 GM/DL Hematocrit 30.3 % Mean Corpuscular Volume 83.6 FL Mean Corpuscular Hemoglobin 28.3 PG Mean Corpuscular Hemoglobin Concent 33.8 % Red Cell Distribution Width 14.2 % Platelet Count 221 TH/MM3 Mean Platelet Volume 8.4 FL Neutrophils (%) (Auto) 63.7 % Lymphocytes (%) (Auto) 28.9 % Monocytes (%) (Auto) 6.2 % Eosinophils (%) (Auto) 0.8 % Basophils (%) (Auto) 0.4 % Neutrophils # (Auto) 5.5 TH/MM3 Lymphocytes # (Auto) 2.5 TH/MM3 Monocytes # (Auto) 0.5 TH/MM3 Eosinophils # (Auto) 0.1 TH/MM3 Basophils # (Auto) 0.0 TH/MM3 CBC Comment DIFF FINAL Differential Comment Imaging Last Impressions Head CT 12/12/17 0000 Signed Impressions: Service Date/Time: Tuesday, December 12, 2017 22:12 - CONCLUSION: No acute intracranial disease. Francis Mahajan MD Cervical Spine MRI 12/11/17 0000 Signed Impressions: Service Date/Time: Monday, December 11, 2017 17:49 - CONCLUSION: 1. Osteophytic ridging at C3-4 and C4-5 levels without canal stenosis. 2. Mild broad-based protrusion at C5-6 causing minimal canal stenosis. 3. Scattered neural foraminal narrowing as described above. Francis Mahajan MD Hip and Pelvis X-Ray 12/10/17 0000 Signed Impressions: Service Date/Time: Sunday, December 10, 2017 16:31 - CONCLUSION: Unremarkable examination of the left hip. Dave Garrett MD Chest CT 12/10/17 0000 Signed Impressions: Service Date/Time: Sunday, December 10, 2017 05:07 - CONCLUSION: 1. No CT evidence for significant acute traumatic injury in the chest. 2. Coronary artery calcifications. Gabriel Hernández MD Cervical Spine CT 12/10/17 0000 Signed Impressions: Service Date/Time: Sunday, December 10, 2017 05:03 - CONCLUSION: 1. Subtle nondisplaced fracture involving the anterior tubercle of the left C2 transverse process. Fracture does not appear to extend to the transverse foramen. Gabriel Hernández MD Assessment and Plan Problem List: (1) STEMI (ST elevation myocardial infarction) ICD Codes: I21.3 - ST elevation (STEMI) myocardial infarction of unspecified site Status: Acute Plan: Overall stable overnight. Ongoing mostly musculoskeletal CP's secondary to fall, not c/w presenting angina and increases with inspiration, also with musculoskeletal component, relief mainly from morphine. Repeat EKG yesterday with no significant re-elevation of inferior ST segments. She does have residual severe disease in small vessels (diagonal, distal LAD, distal left circumflex, OM, PDA). BP's better. EF normal by echo. No CHF. REC: change nitro paste to isosorbide continue aspirin, Brilinta increase ambulation in halls Stable from CV standpoint to d/c home Refer to cardiac rehab Follow up with cardiology in 1 week Problem Qualifiers (1) STEMI (ST elevation myocardial infarction): Qualified Codes: I21.11 - ST elevation (STEMI) myocardial infarction involving right coronary artery Navdeep Us MD Dec 13, 2017 09:35
[2017-12-13 10:08] LABS: BICARBONATE 21.6 MEQ/L (21.0-32.0); BLOOD UREA NITROGEN 8 MG/DL (7-18); CALCIUM 7.7 MG/DL (8.5-10.1); CHLORIDE 110 MEQ/L (98-107); CREATININE 0.81 MG/DL (0.50-1.00); GLOMERULAR FILTRATION RATE 89 ML/MIN (>89); GLUCOSE,RANDOM 142 MG/DL (74-106); SODIUM (NA) 139 MEQ/L (136-145)
[2017-12-13] MEDS: ACETAMINOPHEN/HYDROcodone 325 MG/7.5 MG TAB PO PRN ×2 (10:30→14:24)
[2017-12-13 12:30] VITALS: BP 102/64; PULSE 80; RESP 18; TEMP 98.6; O2SAT 95
[2017-12-13] MEDS: METHOCARBAMOL 500 MG TAB PO SCH ×2 (12:52→14:00)
[2017-12-13] MEDS ORDERED: METH500T3 PO (14:16)
[2017-12-13] MEDS ORDERED: TRAM50 PO (14:16)
[2017-12-13] MEDS ORDERED: BEDSIDE COMMODE1 MI1 (14:17)
--- NOTE | 2017-12-13 14:19 | HHI.DCPOC ---
Discharge Care Plan Diagnosis: (1) STEMI (ST elevation myocardial infarction) Goals to Promote Your Health * To prevent worsening of your condition and complications * To maintain your health at the optimal level Directions to Meet Your Goals Take your medications as prescribed Follow your dietary instruction Follow activity as directed Keep your appointments as scheduled Take your immunizations and boosters as scheduled If your symptoms worsen call your PCP, if no PCP go to Urgent Care Center or Emergency Room Smoking is Dangerous to Your Health. Avoid second hand smoke Call the 24-hour hour crisis hotline for domestic abuse at Tosha Hernandez MD Dec 13, 2017 14:19
--- NOTE | 2017-12-13 14:20 | HHI.FF ---
Face to Face Verification Diagnosis: (1) STEMI (ST elevation myocardial infarction) (2) Physical deconditioning Physical Therapy Order: Evaluate and Treat, Improve ambulation, Strength and gait training Home Health Nursing Order: Medical education Signs/symptoms of disease process Diabetic education CHF education Medication education-adverse effect I have seen patient Aditi Lira on 12/13/17. My clinical findings support the need for the requested home health care services because: Patient has SOB Deconditioned w/ increased weakness I certify that my clinical findings support that this patient is homebound because: Poor cardiac reserve Tosha Hernandez MD Dec 13, 2017 14:20
--- NOTE | 2017-12-13 14:20 | HHI.DS ---
Discharge Summary Admission Date Dec 10, 2017 at 05:44 Discharge Date: Dec 13, 2017 Admitting Diagnosis STEMI (1) STEMI (ST elevation myocardial infarction) ICD Code: I21.3 - ST elevation (STEMI) myocardial infarction of unspecified site Diagnosis: Principal Status: Acute (2) Traumatic closed fracture of C2 vertebra with minimal displacement ICD Code: S12.100A - Unspecified displaced fracture of second cervical vertebra , initial encounter for closed fracture Diagnosis: Principal (3) Hyperlipidemia ICD Code: E78.5 - Hyperlipidemia, unspecified Diagnosis: Secondary (4) Hypotension ICD Code: I95.9 - Hypotension, unspecified Diagnosis: Secondary (5) Diabetes mellitus, type 2 ICD Code: E11.9 - Type 2 diabetes mellitus without complications Diagnosis: Secondary Procedures See hospital course Brief History - From Admission 57-year-old female medical history of diabetes type 2 was brought to the emergency department for evaluation of left-sided chest pain status post mechanical fall 2 this morning. Patient states, woke up from bed with chest pain and check her blood sugar which was high. However as she was walking to bathroom she fell down and hit her head. Apparently this happened twice. Patient was taken to the ED for evaluation of left-sided chest pain. However in the ED, an EKG revealed inferior ST elevation [place] for which cardiology was consulted and patient was taken emergently to catheter lab for PCI. Review of cervical spine CT revealed C2 transverse process fracture. Patient complains of bilateral hip pain. She has no shortness of breath. She denies any GI bleed. CBC/BMP: 12/13/17 0623 12/13/17 0623 Significant Findings Laboratory Tests Test 12/11/17 04:01 12/12/17 11:55 12/13/17 06:23 Red Blood Count 3.87 MIL/MM3 (4.00-5.30) 3.62 MIL/MM3 (4.00-5.30) Hemoglobin 11.0 GM/DL (11.6-15.3) 10.2 GM/DL (11.6-15.3) Hematocrit 32.3 % (35.0-46.0) 30.3 % (35.0-46.0) Random Glucose 197 MG/DL (74-106) 142 MG/DL (74-106) Total Protein 5.7 GM/DL (6.4-8.2) Calcium Level 7.3 MG/DL (8.5-10.1) 7.7 MG/DL (8.5-10.1) Chloride Level 109 MEQ/L (98-107) 110 MEQ/L (98-107) Hemoglobin A1c 10.4 % (4.3-6.0) Protein Corrected Calcium 8.1 MG/DL (8.5-10.1) Aspartate Amino Transf (AST/SGOT) 159 U/L (15-37) Albumin 2.7 GM/DL (3.4-5.0) Triglycerides Level 204 MG/DL (42-150) LDL Cholesterol 104 MG/DL (0-99) HDL Cholesterol 37.5 MG/DL (40.0-60.0) Urine Leukocyte Esterase MOD (NEG) Urine Bacteria RARE /hpf (NONE) Urine Mucus FEW /lpf (OCC) Imaging Last Impressions Head CT 12/12/17 0000 Signed Impressions: Service Date/Time: Tuesday, December 12, 2017 22:12 - CONCLUSION: No acute intracranial disease. Francis Mahajan MD Cervical Spine MRI 12/11/17 0000 Signed Impressions: Service Date/Time: Monday, December 11, 2017 17:49 - CONCLUSION: 1. Osteophytic ridging at C3-4 and C4-5 levels without canal stenosis. 2. Mild broad-based protrusion at C5-6 causing minimal canal stenosis. 3. Scattered neural foraminal narrowing as described above. Francis Mahajan MD Hip and Pelvis X-Ray 12/10/17 0000 Signed Impressions: Service Date/Time: Sunday, December 10, 2017 16:31 - CONCLUSION: Unremarkable examination of the left hip. Dave Garrett MD Chest CT 12/10/17 0000 Signed Impressions: Service Date/Time: Sunday, December 10, 2017 05:07 - CONCLUSION: 1. No CT evidence for significant acute traumatic injury in the chest. 2. Coronary artery calcifications. Gabriel Hernández MD Cervical Spine CT 12/10/17 0000 Signed Impressions: Service Date/Time: Sunday, December 10, 2017 05:03 - CONCLUSION: 1. Subtle nondisplaced fracture involving the anterior tubercle of the left C2 transverse process. Fracture does not appear to extend to the transverse foramen. Gabriel Hernández MD PE at Discharge GENERAL: NAD CARDIOVASCULAR: Regular rate and rhythm without murmurs, gallops, or rubs. RESPIRATORY: Breath sounds equal bilaterally. No accessory muscle use. GASTROINTESTINAL: Abdomen soft, non-tender, nondistended. MUSCULOSKELETAL: Paraspinal muscle spasm of the upper back especially on the right side. Tenderness to palpation on the rib cage. No edema or erythema noted. BACK: Nontender without obvious deformity. No CVA tenderness. Pt update on day of discharge Follow-up for STEMI and fall Patient complaining about upper back pain and rib pain mostly on the right side. She stated that this has happened since she was admitted to the hospital. She feels like it's the same. Deny any chest pain, shortness of breathing, palpitation, lightheadedness dizziness. Patient's nurse spoke to Dr. Eric personnel quality assurance auditor he stated okay to discharge today. Dr. Eric discontinue metoprolol secondary to allergy. Patient long-acting insulin held last night due to low blood sugars. She is currently getting her home dosage of NovoLog. Discussed with patient's nurse. Hospital Course 57 yrs old female with ST elevation [place] Management per cardiology Status Post PCI Continue with Brilinta 90 mg twice a day, aspirin 81 mg daily, Lipitor 10 mg at bedtime and Imdur Patient not start on the beta maryjo secondary to allergy. Patient also allergic to kalyani. Nondisplaced fracture C2 transverse process/right rib and upper back pain./ Muscle spasms. Cervical spine finding of subtle nondisplaced fracture involving the anterior tubercle of the left C2 transverse process Appreciate input from neurosurgery patient is not a surgical candidate. Cervical MRI noted They recommended a muscle relaxant which patient prescribed robaxin. Patient was cleared by neurosurgeon. Hypotension 2/2 Narcotics use Resolved with IVF hydration Hyperlipidemia LDL of 104 Patient was started on statin. She will need to follow-up with her LFTs as outpatient in 4-6 weeks or as recommended by her primary care provider. Mechanical fall Secondary to STEMI. Head CT without any acute finding CT chest without any acute finding cervical spine noted and review--see above treatment Patient to go home with home health. Hip pain Xray ruled out fracture Tylenol PRN PT to treat Diabetes type 2 Hemoglobin A1c 10.4. Uncontrolled. Patient was giving her home dose of Lantus but yesterday it was held due to low blood sugars. I will decrease her basal dose of Lantus to 5 units at night. She can continue with her home doses. This should improve as patient's medical conditions improve and her appetite starts improving. Education given on hypoglycemia and monitoring her blood sugars. Patient has been on insulin for about 10 years. Follow with his primary care provider within one week for adjustment. Pt Condition on Discharge: Stable Discharge Disposition: Disch w/ Home Health Serv Discharge Time: > 30 minutes Discharge Instructions DIET: Follow Instructions for: Heart Healthy Diet, Diabetic Diet Activities you can perform: See Additionl Instruction Other Activity Instructions: As directed by her personnel quality assurance auditor. Follow up Referrals: Cardiology - 1 Week with Navdeep Us MD PCP Follow-up - 1 Week New Medications: Bedside Commode (Bedside Commode) 1 Mis Mis EA .ROUTE DIRECTED for deconditioned, #[address] (Aspirin DR) 81 Mg Tabdr 81 MG PO DAILY for Prevent Blood Clot, #30 TAB Atorvastatin (Atorvastatin) 20 Mg Tab 20 MG PO HS for Cholesterol Management, #30 TAB Isosorbide Mononitrate ER (Isosorbide Mononitrate ER) 60 Mg Tab 60 MG PO DAILY@0700 for Regulate Heart Beat, #30 TAB 3 Refills Methocarbamol (Methocarbamol) 500 Mg Tab 500 MG PO Q8HR for muscle spasm, #40 TAB 0 Refills Nitroglycerin SL (Nitrostat SL) 0.3 Mg Subl 0.3 MG SL Q5M PRN for CHEST PAIN, #10 TAB 0 Refills Ticagrelor (Brilinta) 90 Mg Tab 90 MG PO BID for Prevent Blood Clot, #60 TAB 3 Refills Tramadol (Ultram) 50 Mg Tab 50 MG PO Q4H PRN for moderate to severe pain, #20 TAB 0 Refills Changed Medications: Insulin Glargine Inj (Lantus Inj) 1,000 Unit/10 Ml Vial 5 UNITS SQ HS for Blood Sugar Management, #1 VIAL 0 Refills (Changed from: 20 UNITS) Continued Medications: Insulin Lispro (Human) Inj (Humalog Inj) 1,000 Unit/10 Ml Vial 30 UNITS SQ TIDAC for Blood Sugar Management, #1 VIAL 0 Refills Van,Tosha Reena MD Dec 13, 2017 14:20
[2017-12-13] MEDS ORDERED: NITR.3 SL (14:22)
[2017-12-13] MEDS ORDERED: LANTUS2P SQ (14:22)
[2017-12-13 16:41] LABS: HEMOGLOBIN A1C 10.3 % (4.3-6.0)
--- NOTE | 2017-12-13 19:42 | EKG ---
Date Performed: 12/12/2017 Time Performed: 14:50:26 PTAGE: 57 years EKG: Sinus rhythm INFERIOR MYOCARDIAL INFARCTION , OF INDETERMINATE AGE WITH POSTERIOR EXTENSION ABNORMAL ECG PREVIOUS TRACING : 12/11/2017 11.35 Since previous tracing, no significant change noted DOCTOR: Dominique Manning Interpretating Date/Time 12/13/2017 19:40:36
--- NOTE | 2017-12-13 19:43 | EKG ---
Date Performed: 12/12/2017 Time Performed: 21:57:28 PTAGE: 57 years EKG: Sinus rhythm Possible inferior infarct - age undetermined Anterolateral ST-T changes are nonspecific Abnormal ECG PREVIOUS TRACING : 12/12/2017 14.50 Since previous tracing, no significant change noted DOCTOR: Dominique Manning Interpretating Date/Time 12/13/2017 19:40:46
[2017-12-13] MEDS ORDERED: METOPROLOL TARTRATE 25 MG TAB PO SCH (21:00)
== END 2017-12-13 18:30 | disposition home or self-care (01) | DRG 247 ==
LOC: NEPC 04:35 → NEDA 05:44 → HCIN 07:08
PROVIDERS: ADMIT Family Medicine; ATTEND Family Medicine
PROC: 027034Z Dilation of Coronary Artery, One Artery with Drug-eluting Intraluminal Device, Percutaneous Approach (ICD-10-PCS; principal; 2017-12-10)
PROC: 4A023N7 Measurement of Cardiac Sampling and Pressure, Left Heart, Percutaneous Approach (ICD-10-PCS; 2017-12-10)
PROC: B2111ZZ Fluoroscopy of Multiple Coronary Arteries using Low Osmolar Contrast (ICD-10-PCS; 2017-12-10)
PROC: B41F1ZZ Fluoroscopy of Right Lower Extremity Arteries using Low Osmolar Contrast (ICD-10-PCS; 2017-12-10)
DX: I21.11 ST elevation (STEMI) myocardial infarction involving right coronary artery (principal); S12.100A Unspecified displaced fracture of second cervical vertebra, initial encounter for closed fracture; I95.9 Hypotension, unspecified; E11.9 Type 2 diabetes mellitus without complications; I25.10 Atherosclerotic heart disease of native coronary artery without angina pectoris; S16.1XXA Strain of muscle, fascia and tendon at neck level, initial encounter; M25.552 Pain in left hip; Z79.82 Long term (current) use of aspirin; E66.9 Obesity, unspecified; W18.30XA Fall on same level, unspecified, initial encounter; Y92.009 Unspecified place in unspecified non-institutional (private) residence as the place of occurrence of the external cause; Z90.710 Acquired absence of both cervix and uterus; Z82.49 Family history of ischemic heart disease and other diseases of the circulatory system; Z83.3 Family history of diabetes mellitus; R39.11 Hesitancy of micturition; I10 Essential (primary) hypertension; R20.2 Paresthesia of skin; R20.0 Anesthesia of skin; E78.5 Hyperlipidemia, unspecified; S20.211A Contusion of right front wall of thorax, initial encounter
CPT/HCPCS: 70450; 71250; 72125; 72141; 73502; 80048; 80061; 80076; 81001; 82550; 82552; 82948; 83036; 83735; 84155; 84484; 85007; 85025; 85027; 85610; 85730; 92941; 93005; 93306; 93454; 96374; 96375; C1725; C1757; C1760; C1769; C1874; C1887; C1893; C9460; G0269; J0583; J1644; J1815; J2250; J2270; J2405; J3010; J7030; J7040; J7050; Q9967

== ENCOUNTER 2018-03-10 10:52 | Observation (INO) | payer BC ==
[2018-03-10] VITALS (10 sets, daily range): BP systolic 119–170; BP diastolic 70–94; PULSE 80–91; RESP 17–20; TEMP 97.8–98.4; O2SAT 97–99
[~2018-03-10 10:52] MED LIST: ATOR20TA15 PO; BEDSIDE COMMODE1 MI1; BRIL90TA PO; ECASA81 PO; HUMALOG SQ; ISOS60TA PO; LANTUS2P SQ; METH500T3 PO; NITR.3 SL; TRAM50 PO
[2018-03-10] MEDS ORDERED: SODIUM CHLORIDE 0.9% FLUSH 10 ML FLUSH IVF PRN (11:30)
[2018-03-10] MEDS ORDERED: MORPHINE SULFATE 4 MG/ML INJ IV PUSH ONE (11:30)
[2018-03-10] MEDS ORDERED: NITROGLYCERIN 2% OINT 1 GM PACKET TOP ONE (11:30)
--- NOTE | 2018-03-10 11:54 | RADRPT ---
EXAM DATE/TIME: 03/10/2018 11:35 [facility] COMPARISON: No previous studies available for comparison. INDICATIONS : Chest pain today. MEDICAL HISTORY : Cardiovascular disease. Diabetes mellitus type 2. Hypercholesterolemia. SURGICAL HISTORY : Hysterectomy. ENCOUNTER: Initial ACUITY: 1 day PAIN SCORE: 7/10 LOCATION: Bilateral chest FINDINGS: A single view of the chest demonstrates the lungs to be symmetrically aerated without evidence of mas s, infiltrate or effusion. The cardiomediastinal contours are unremarkable. Osseous structures are intact. CONCLUSION: No acute disease. Francis Mahajan MD on March 10, 2018 at 11:52 Board Certified Radiologist. This report was verified electronically.
[2018-03-10 11:55] LABS: AUTOMATED NEUTROPHIL # 4.9 TH/MM3 (1.8-7.7); BASOPHIL % 0.5 % (0.0-2.0); EOSINOPHIL # 0.1 TH/MM3 (0-0.4); EOSINOPHIL % 1.6 % (0.0-4.0); HEMATOCRIT 38.7 % (35.0-46.0); HEMOGLOBIN 13.1 GM/DL (11.6-15.3); LYMPH % 38.3 % (9.0-44.0); LYMPHOCYTE # 3.4 TH/MM3 (1.0-4.8); MEAN CELL VOLUME 82.5 FL (80.0-100.0); MEAN CORPUSCULAR HGB CONC 33.9 % (32.0-36.0); MEAN PLATELET VOLUME 8.2 FL (7.0-11.0); MONO % 4.1 % (0.0-8.0); MONOCYTE # 0.4 TH/MM3 (0-0.9); NEUT % 55.5 % (16.0-70.0); PLATELET COUNT 312 TH/MM3 (150-450); RED BLOOD COUNT 4.69 MIL/MM3 (4.00-5.30); RED CELL DISTRIBUTION WIDTH 14.6 % (11.6-17.2); WHITE BLOOD COUNT 8.9 TH/MM3 (4.0-11.0)
--- NOTE | 2018-03-10 11:57 | PD ---
HPI . Chest pain Chief Complaint: Cardiac Complaint Time Seen by Provider: 11:26 Travel History International Travel<30 days: No Contact w/Intl Traveler<30days: No Traveled to known affect area: No History of Present Illness HPI Patient presents with chief complaint of chest pain. Onset was about 3 AM. She states that she was not sleeping well because of a continuous glucose monitor which was in her left abdomen. She states that the monitor has now been removed. She describes a sharp, left-sided chest pain which she rates 5/ 10. The pain has been continuous since its onset at 3 AM. It is associated with shortness of breath and nausea. She reports an MA in November. She states that she did not have chest pain with her MA but rather a syncopal event. PFSH Past Medical History Heart Rhythm Problems: No Cancer: No Cardiovascular Problems: Yes High Cholesterol: Yes Chest Pain: Yes Congestive Heart Failure: No Diabetes: Yes Patient Takes Glucophage: No Diminished Hearing: No Endocrine: Yes Genitourinary: No Immune Disorder: No Musculoskeletal: Yes Neurologic: No Psychiatric: No Reproductive: No Respiratory: No Tetanus Vaccination: > 5 Years Influenza Vaccination: Yes ?: Not : 2 Para: 2 Past Surgical History Abdominal Surgery: Yes (HYSTERECTOMY) Cardiac Surgery: No Coronary Stent: Yes (X 2) Thoracic Surgery: No Social History Alcohol Use: Yes (OCASSIONALLY) Tobacco Use: No Substance Use: No Allergies-Medications (Allergen,Severity, Reaction): Coded Allergies: metoprolol (Verified Allergy, Severe, HALLUCINATIONS, 03/10/18) hallucinations per patient famotidine (Verified Allergy, Unknown, RASH, 03/10/18) lisinopril (Verified Allergy, Unknown, Itching, 12/10/17) FACIAL SWELLING AND ITCHING insulin detemir (Verified Adverse Reaction, Unknown, Diarrhea, 03/10/18) Reported Meds & Prescriptions Reported Meds & Active Scripts Active Nitrostat SL (Nitroglycerin) 0.3 Mg Subl 0.3 Mg SL Q5M PRN Lantus Inj (Insulin Glargine) 1,000 Unit/10 Ml Vial 5 Units SQ HS Methocarbamol 500 Mg Tab 500 Mg PO Q8HR Aspirin [address] (Aspirin) 81 Mg Tabdr 81 Mg PO DAILY Isosorbide Mononitrate ER (Isosorbide Mononitrate) 60 Mg Tab 60 Mg PO DAILY@0700 Atorvastatin (Atorvastatin Calcium) 20 Mg Tab 20 Mg PO HS Brilinta (Ticagrelor) 90 Mg Tab 90 Mg PO BID Reported Humalog Inj (Insulin Human Lispro) 1,000 Unit/10 Ml Vial 30 Units SQ TIDAC Review of Systems Except as stated in HPI: all other systems reviewed are Neg General / Constitutional: No: Fever, Chills Cardiovascular: Positive: Chest Pain or Discomfort Respiratory: Positive: Shortness of Breath Gastrointestinal: Positive: Nausea Physical Exam Narrative GENERAL: Awake and alert. SKIN: warm/dry. Normal color and turgor. HEAD: Normocephalic. Atraumatic. EYES: Pupils equal and round. No scleral icterus. No injection or drainage. ENT: No nasal bleeding or discharge. Mucous membranes pink and moist. NECK: Trachea midline. Full range of motion without pain.. CARDIOVASCULAR: Regular rate and rhythm. Heart sounds are normal. RESPIRATORY: No accessory muscle use. Clear to auscultation. Breath sounds equal bilaterally. Left chest wall is point tender just left of the sternum at about the level of the T4 dermatome. GASTROINTESTINAL: Abdomen soft. Nontender. Bowel sounds present. Nondistended. MUSCULOSKELETAL: No obvious deformities. NEUROLOGICAL: Awake and alert. No obvious cranial nerve deficits. Motor grossly within normal limits. Normal speech. PSYCHIATRIC: Appropriate mood and affect; insight and judgment normal. Data Data Last Documented VS Vital Signs Date Time Temp Pulse Resp B/P (MAP) Pulse Ox O2 Delivery O2 Flow Rate FiO2 03/10/18 12:17 97.9 88 17 156/94 (114) 98 Room Air Orders Orders Electrocardiogram (03/10/18 ) Basic Metabolic Panel (Bmp) (03/10/18 11:27) Complete Blood Count With Diff (03/10/18 11:27) Magnesium (Mg) (03/10/18 11:27) Prothrombin Time / Inr (Pt) (03/10/18 11:27) Act Partial Throm Time (Ptt) (03/10/18 11:27) Troponin I (03/10/18 11:27) Chest, Single Ap (03/10/18 11:27) Ecg Monitoring (03/10/18 11:27) Iv Access Insert/Monitor (03/10/18 11:27) Oximetry (03/10/18 11:27) Morphine Inj (Morphine Inj) (03/10/18 11:30) Nitroglycerin 2% Oint (Nitroglycerin 2% (03/10/18 11:30) Sodium Chloride 0.9% Flush (Ns Flush) (03/10/18 11:30) Labs Laboratory Tests Test 03/10/18 11:40 White Blood Count 8.9 TH/MM3 Red Blood Count 4.69 MIL/MM3 Hemoglobin 13.1 GM/DL Hematocrit 38.7 % Mean Corpuscular Volume 82.5 FL Mean Corpuscular Hemoglobin 28.0 PG Mean Corpuscular Hemoglobin Concent 33.9 % Red Cell Distribution Width 14.6 % Platelet Count 312 TH/MM3 Mean Platelet Volume 8.2 FL Neutrophils (%) (Auto) 55.5 % Lymphocytes (%) (Auto) 38.3 % Monocytes (%) (Auto) 4.1 % Eosinophils (%) (Auto) 1.6 % Basophils (%) (Auto) 0.5 % Neutrophils # (Auto) 4.9 TH/MM3 Lymphocytes # (Auto) 3.4 TH/MM3 Monocytes # (Auto) 0.4 TH/MM3 Eosinophils # (Auto) 0.1 TH/MM3 Basophils # (Auto) 0.0 TH/MM3 CBC Comment DIFF FINAL Differential Comment Prothrombin Time 10.7 SEC Prothromb Time International Ratio 1.1 RATIO Activated Partial Thromboplast Time 20.3 SEC Blood Urea Nitrogen 11 MG/DL Creatinine 1.12 MG/DL Random Glucose 279 MG/DL Calcium Level 9.2 MG/DL Magnesium Level 1.8 MG/DL Sodium Level 138 MEQ/L Potassium Level 4.2 MEQ/L Chloride Level 106 MEQ/L Carbon Dioxide Level 20.0 MEQ/L Anion Gap 12 MEQ/L Estimat Glomerular Filtration Rate 61 ML/MIN Troponin I LESS THAN 0.02 NG/ML MDM Medical Decision Making Medical Screen Exam Complete: Yes Emergency Medical Condition: Yes Interpretation(s) EKG shows a sinus rhythm with no ST segment elevation or depression. She does have Q waves inferiorly. Differential Diagnosis Differential diagnosis of chest pain includes but is not limited to musculoskeletal pain, pulmonary embolism, acute coronary syndrome, pneumonia, pleurisy Narrative Course Patient presents with a chief complaint of chest pain. I suspect chest wall pain as she is point tender. However, she does have cardiac risk factors and has had a previous MA. Cardiac evaluation is in process. CBC & BMP Diagram 03/10/18 11:40 Calcium Level 9.2, Magnesium Level 1.8 trop < 0.02 She will be admitted to the chest pain center for further evaluation Diagnosis Primary Impression: Chest pain Qualified Codes: R07.9 - Chest pain, unspecified Admitting Information Admitting Physician Requests: Observation Condition: Stable Aissatou Camacho MD Mar 10, 2018 11:57
[2018-03-10 12:12] LABS: INTERNATIONAL NORMALIZED RATIO 1.1 RATIO; PROTHROMBIN TIME - PATIENT 10.7 SEC (9.8-11.6)
[2018-03-10 12:22] LABS: BLOOD UREA NITROGEN 11 MG/DL (7-18); CALCIUM 9.2 MG/DL (8.5-10.1); CHLORIDE 106 MEQ/L (98-107); CREATININE 1.12 MG/DL (0.50-1.00); GLOMERULAR FILTRATION RATE 61 ML/MIN (>89); GLUCOSE,RANDOM 279 MG/DL (74-106); MAGNESIUM 1.8 MG/DL (1.5-2.5); SODIUM (NA) 138 MEQ/L (136-145)
[2018-03-10 12:26] LABS: TROPONIN I LESS THAN 0.02 NG/ML (0.02-0.05)
[2018-03-10] MEDS ORDERED: ONDANSETRON HCL 4 MG/2 ML VIAL IV PUSH PRN (13:30)
[2018-03-10] MEDS ORDERED: ALPRAZolam 0.25 MG TAB PO PRN (13:30)
[2018-03-10] MEDS ORDERED: ACETAMINOPHEN/HYDROcodone 325 MG/7.5 MG TAB PO PRN (13:30)
[2018-03-10] MEDS ORDERED: ACETAMINOPHEN 500 MG CPLT PO PRN (13:30)
[2018-03-10] MEDS ORDERED: DEXTROSE 50% IN WATER 50 ML VIAL(D50) IV PUSH PRN (15:15)
[2018-03-10] MEDS ORDERED: GLUCAGON 1 MG/ML VIAL OTHER PRN (15:15)
--- NOTE | 2018-03-10 15:34 | HHI.HP ---
[facility] Primary Care Physician Emerald Hahn MD Chief Complaint Chest pain History of Present Illness This is a 57-year-old female with history of CAD and was a STEMI alert December 10, 2017 with stent to the RCA. She also had 90% disease of LAD and 80% disease to the circumflex. She has been on medical management following Dr. Melissa. States that about 330 this morning she woke up and felt very nauseous. Soon afterwards she developed a sharp left-sided chest discomfort that radiated into her left arm. States lasted a 1-2 minutes but recurred a few more times. She went to her [employer] and had her glucose monitor removed and informed her physician that she had been having chest pain and at that time she was advised to go to the ED. She has been short of breath with it and a little nauseous. No diaphoresis. States it is really not similar to when she needed her stent in November. She states that at times she would not have any discomforts. She was little short of breath. Voices compliance with her medications. States she has seen Dr. Melissa recently. Currently no chest discomfort. Review of Systems General: Patient denies fevers, chills, and recent travel. HEENT: Patient denies headache, sore throat, difficulty swallowing. Cardiovascular: Has the chest discomfort as mentioned above. Denies sensation of heart beating rapidly or irregularly. No syncope. Denies diaphoresis. Respiratory: Somewhat short of breath. Denies inspirational chest discomfort. Denies coughing wheezing or hemoptysis. GI: A little nauseous. Patient denies vomiting, diarrhea, abdominal pain, bloody stools. Musculoskeletal: Patient denies joint pain or edema. Denies calf pain or edema. Neurovascular: Patient denies numbness, tingling, weakness in extremities. Denies headache. Endocrine: Denies polyuria and polydipsia. Hematologic: Denies easy bruising. Skin: Denies rash or itching. Past Family Social History Allergies: Coded Allergies: metoprolol (Verified Allergy, Severe, HALLUCINATIONS, 03/10/18) hallucinations per patient famotidine (Verified Allergy, Unknown, RASH, 03/10/18) lisinopril (Verified Allergy, Unknown, Itching, 12/10/17) FACIAL SWELLING AND ITCHING insulin detemir (Verified Adverse Reaction, Unknown, Diarrhea, 03/10/18) Past Medical History CAD and was a STEMI alert December 10, 2017 with a drug-eluting stent to the RCA. Hypertension, hyperlipidemia, diabetes. Past Surgical History Cardiac catheterization in November with stent of RCA. Reported Medications Reported Meds & Active Scripts Active Nitrostat SL (Nitroglycerin) 0.3 Mg Subl 0.3 Mg SL Q5M PRN Lantus Inj (Insulin Glargine) 1,000 Unit/10 Ml Vial 5 Units SQ HS Methocarbamol 500 Mg Tab 500 Mg PO Q8HR Aspirin DR (Aspirin) 81 Mg Tabdr 81 Mg PO DAILY Isosorbide Mononitrate ER (Isosorbide Mononitrate) 60 Mg Tab 60 Mg PO DAILY@0700 Atorvastatin (Atorvastatin Calcium) 20 Mg Tab 20 Mg PO HS Brilinta (Ticagrelor) 90 Mg Tab 90 Mg PO BID Reported Humalog Inj (Insulin Human Lispro) 1,000 Unit/10 Ml Vial 30 Units SQ TIDAC Active Ordered Medications Current Medications Medications (Trade) Dose Ordered Sig/Estelle Route Start Time Stop Time Status Last Admin (NS Flush) 2 ml UNSCH PRN IVF 03/10/18 11:30 03/10/18 11:43 (Tylenol) 500 mg Q4H PRN PO 03/10/18 13:30 ([place] 7.5-325 Mg) 1 tab Q4H PRN PO 03/10/18 13:30 (Zofran Inj) 4 mg Q6H PRN IV PUSH 03/10/18 13:30 (Aspirin) 325 mg DAILY PO 03/11/18 09:00 (Xanax) 0.25 mg Q8H PRN PO 03/10/18 13:30 (D50w (Vial) Inj) 50 ml UNSCH PRN IV PUSH 03/10/18 15:15 (Glucagon Inj) 1 mg UNSCH PRN OTHER 03/10/18 15:15 (NovoLOG SUPPLEMENTAL SCALE) 1 ACHS SLIDING SCALE SQ 03/10/18 17:00 (Lipitor) 20 mg HS PO 03/10/18 21:00 (Imdur) 60 mg DAILY@0700 PO 03/11/18 07:00 (Robaxin) 500 mg Q8HR PO 03/10/18 22:00 (Brilinta) 90 mg BID PO 03/10/18 21:00 Family History There is family history of CAD. Social History Non-smoker. Has occasional alcohol. Denies illicit drug use. Physical Exam Vital Signs Vital Signs Date Time Temp Pulse Resp B/P (MAP) Pulse Ox O2 Delivery O2 Flow Rate FiO2 03/10/18 14:20 97.8 86 17 155/88 (110) 99 03/10/18 14:07 97.8 80 17 155/93 (113) 99 Room Air 03/10/18 12:17 97.9 88 17 156/94 (114) 98 Room Air 03/10/18 11:48 17 03/10/18 11:36 20 99 Room Air 03/10/18 11:28 80 20 161/88 (112) 99 Room Air 03/10/18 11:15 89 20 98 Room Air 03/10/18 11:05 98.4 89 20 170/91 (117) 99 Physical Exam GENERAL: This is a well-nourished, well-developed patient, in no apparent distress. Patient speaks in clear complete sentences. Patient is pleasant. HEENT: Head is atraumatic and normocephalic. Neck is supple without lymphadenopathy and trachea is midline. No JVD or carotid bruits. CARDIOVASCULAR: Regular rate and rhythm without murmurs, gallops, or rubs. RESPIRATORY: Clear to auscultation. Breath sounds equal bilaterally. No wheezes , rales, or rhonchi. Left upper chest wall is tender. No use of accessory muscles. GASTROINTESTINAL: Abdomen is nontender, nondistended. Abdomen soft. No obvious pulsatile mass or bruit. No CVA tenderness. Strong femoral pulses bilaterally. Normal bowel sounds in all quadrants. MUSCULOSKELETAL: Patient is moving upper and lower extremities freely. No calf tenderness or edema, no Homans sign. Strong pulses in upper and lower extremities. NEUROLOGICAL: Patient is alert and oriented. Cranial nerves 2-12 are grossly intact. No focal deficits and speech is clear. SKIN: No rash and turgor is normal. Laboratory Laboratory Tests Test 03/10/18 11:40 03/10/18 14:40 White Blood Count 8.9 Red Blood Count 4.69 Hemoglobin 13.1 Hematocrit 38.7 Mean Corpuscular Volume 82.5 Mean Corpuscular Hemoglobin 28.0 Mean Corpuscular Hemoglobin Concent 33.9 Red Cell Distribution Width 14.6 Platelet Count 312 Mean Platelet Volume 8.2 Neutrophils (%) (Auto) 55.5 Lymphocytes (%) (Auto) 38.3 Monocytes (%) (Auto) 4.1 Eosinophils (%) (Auto) 1.6 Basophils (%) (Auto) 0.5 Neutrophils # (Auto) 4.9 Lymphocytes # (Auto) 3.4 Monocytes # (Auto) 0.4 Eosinophils # (Auto) 0.1 Basophils # (Auto) 0.0 CBC Comment DIFF FINAL Differential Comment Prothrombin Time 10.7 Prothromb Time International Ratio 1.1 Activated Partial Thromboplast Time 20.3 Blood Urea Nitrogen 11 Creatinine 1.12 Random Glucose 279 Calcium Level 9.2 Magnesium Level 1.8 Sodium Level 138 Potassium Level 4.2 Chloride Level 106 Carbon Dioxide Level 20.0 Anion Gap 12 Estimat Glomerular Filtration Rate 61 Troponin I LESS THAN 0.02 Result Diagram: 03/10/18 1140 03/10/18 1140 Imaging Last 48 hours Impressions Chest X-Ray 03/10/18 1127 Signed Impressions: Service Date/Time: February 11:35 - CONCLUSION: No acute disease. Francis Mahajan MD Course EKGs are sinus rhythm without significant ST segment depressions or elevations. Caprini VTE Risk Assessment Caprini VTE Risk Assessment: No/Low Risk (score <= 1) Caprini Risk Assessment Model Point Value = 1 Point Value = 2 Point Value = 3 Point Value = 5 Age 41-60 Minor surgery BMI > 25 kg/m2 Swollen legs Varicose veins or History of unexplained or recurrent spontaneous Oral contraceptives or hormone replacement Sepsis (< 1 month) Serious lung disease, including pneumonia (< 1 month) Abnormal pulmonary function Acute myocardial infarction Congestive heart failure (< 1 month) History of inflammatory bowel disease Medical patient at bed rest Age 61-74 Arthroscopic surgery Major open surgery (> 45 min) Laparoscopic surgery (> 45 min) Malignancy Confined to bed (> 72 hours) Immobilizing plaster cast Central venous access Age >= 75 History of VTE Family history of VTE Factor V Leiden Prothrombin [id number] Lupus anticoagulant Anticardiolipin antibodies Elevated serum homocysteine Heparin-induced thrombocytopenia Other congenital or acquired thrombophilia Stroke (< 1 month) Elective arthroplasty Hip, pelvis, or leg fracture Acute spinal cord injury (< 1 month) Prophylaxis Regimen Total Risk Factor Score Risk Level Prophylaxis Regimen 0-1 Low Early ambulation 2 Moderate Order ONE of the following: *Sequential Compression Device (SCD) *Heparin 5000 units SQ BID 3-4 Higher Order ONE of the following medications: *Heparin 5000 units SQ TID *Enoxaparin/Lovenox 40 mg SQ daily (WT < 150 kg, CrCl > 30 mL/min) *Enoxaparin/Lovenox 30 mg SQ daily (WT < 150 kg, CrCl > 10-29 mL/min) *Enoxaparin/Lovenox 30 mg SQ BID (WT < 150 kg, CrCl > 30 mL/min) AND/OR *Sequential Compression Device (SCD) 5 or more Highest Order ONE of the following medications: *Heparin 5000 units SQ TID (Preferred with Epidurals) *Enoxaparin/Lovenox 40 mg SQ daily (WT < 150 kg, CrCl > 30 mL/min) *Enoxaparin/Lovenox 30 mg SQ daily (WT < 150 kg, CrCl > 10-29 mL/min) *Enoxaparin/Lovenox 30 mg SQ BID (WT < 150 kg, CrCl > 30 mL/min) AND *Sequential Compression Device (SCD) Assessment and Plan Assessment and Plan * Chest pain: Patient will continue to have serial cardiac enzymes and EKGs for ruling out purposes. She has been seen by Dr. Mohan Martinez of cardiology in the chest pain center. I discussed this patient with Dr. Melissa. He has recommended stress test if she rules out. Let them know if the stress test is abnormal as he may then take her to the [facility]. Otherwise if nonischemic discharge her home he will follow her on an outpatient basis. Patient is stable at this time. She is agreeable to this plan. She should return to ED for interval issues. * CAD: We will reassess with stress testing. Patient should resume medications and follow-up with her patient care assistant. * Diabetes: Patient will be on sliding scale insulin coverage. Follow diabetic diet. Resume medication at discharge. * Hypertension: Continue medication. * Hyperlipidemia: Continue medication. Patient is stable at this time. She is agreeable to this plan. Sven Bui Mar 10, 2018 15:34
[2018-03-10 15:45] LABS: TROPONIN I LESS THAN 0.02 NG/ML (0.02-0.05)
[2018-03-10] MEDS ORDERED: cloNIDine HCL 0.1 MG TAB PO PRN (15:45)
[2018-03-10] MEDS ORDERED: RESP: ALBUTEROL 2.5 MG/IPRATROPIUM 0.5 MG NEB (PRN) INH (15:45)
[2018-03-10 18:38] LABS: TROPONIN I LESS THAN 0.02 NG/ML (0.02-0.05)
[2018-03-10] MEDS: INSULIN ASPART SUPPLEMENTAL SCALE SQ SCH ×2 (18:42→22:00)
[2018-03-10] MEDS: TICAGRELOR 90 MG TAB PO SCH (20:28)
[2018-03-10] MEDS ORDERED: ATORVASTATIN 20 MG TAB PO SCH (21:00)
[2018-03-10] MEDS: METHOCARBAMOL 500 MG TAB PO SCH (22:00)
[2018-03-11 01:13] VITALS: BP 141/83; PULSE 90; RESP 16; TEMP 98.1; O2SAT 96
[2018-03-11 02:25] VITALS: PULSE 80
[2018-03-11 04:02] VITALS: BP 154/90; PULSE 95; RESP 18; TEMP 97.9; O2SAT 96
[2018-03-11] MEDS: METHOCARBAMOL 500 MG TAB PO SCH (06:00)
[2018-03-11] MEDS ORDERED: ISOSORBIDE MONONITRATE 60 MG CR TAB (IMDUR) PO SCH (07:00)
[2018-03-11] MEDS: TICAGRELOR 90 MG TAB PO SCH (08:05)
[2018-03-11] MEDS: INSULIN ASPART SUPPLEMENTAL SCALE SQ SCH ×2 (08:10→12:00)
--- NOTE | 2018-03-11 08:23 | PD.CARD.PN ---
Subjective Subjective Remarks Sleeping upon entering room. No complaints overnight. Objective Medications Current Medications Medications (Trade) Dose Ordered Sig/Estelle Route Start Time Stop Time Status Last Admin (NS Flush) 2 ml UNSCH PRN IVF 03/10/18 11:30 03/10/18 11:43 (Tylenol) 500 mg Q4H PRN PO 03/10/18 13:30 ([place] 7.5-325 Mg) 1 tab Q4H PRN PO 03/10/18 13:30 (Zofran Inj) 4 mg Q6H PRN IV PUSH 03/10/18 13:30 (Aspirin) 325 mg DAILY PO 03/11/18 09:00 (Xanax) 0.25 mg Q8H PRN PO 03/10/18 13:30 03/10/18 22:00 (D50w (Vial) Inj) 50 ml UNSCH PRN IV PUSH 03/10/18 15:15 (Glucagon Inj) 1 mg UNSCH PRN OTHER 03/10/18 15:15 (NovoLOG SUPPLEMENTAL SCALE) 1 ACHS SLIDING SCALE SQ 03/10/18 17:00 03/10/18 22:00 (Lipitor) 20 mg HS PO 03/10/18 21:00 03/10/18 20:28 (Imdur) 60 mg DAILY@0700 PO 03/11/18 07:00 (Robaxin) 500 mg Q8HR PO 03/10/18 22:00 (Brilinta) 90 mg BID PO 03/10/18 21:00 03/10/18 20:28 (Duoneb Neb) 1 ampule Q4HR NEB PRN INH 03/10/18 15:45 (Catapres) 0.1 mg Q4H PRN PO 03/10/18 15:45 Vital Signs / I&O Vital Signs Date Time Temp Pulse Resp B/P (MAP) Pulse Ox O2 Delivery O2 Flow Rate FiO2 03/11/18 04:02 97.9 95 18 154/90 (111) 96 03/11/18 02:25 80 03/11/18 01:13 98.1 90 16 141/83 (102) 96 03/10/18 21:27 98 03/10/18 20:19 98.0 91 18 119/70 (86) 97 03/10/18 16:25 98.1 83 18 125/74 (91) 97 03/10/18 16:17 90 03/10/18 14:20 97.8 86 17 155/88 (110) 99 03/10/18 14:07 97.8 80 17 155/93 (113) 99 Room Air 03/10/18 12:17 97.9 88 17 156/94 (114) 98 Room Air 03/10/18 11:48 17 03/10/18 11:36 20 99 Room Air 03/10/18 11:28 80 20 161/88 (112) 99 Room Air 03/10/18 11:15 89 20 98 Room Air 03/10/18 11:05 98.4 89 20 170/91 (117) 99 I/O 03/10/18 03/10/18 03/10/18 03/11/18 03/11/18 03/11/18 07:00 15:00 23:00 07:00 15:00 23:00 Intake Total 300 ml Balance 300 ml Intake Oral 300 ml Physical Exam GENERAL: Alert WN, WD, NAD, pleasant, female HEAD: NC, AT CV: RRR, without murmur, rub, gallop, no JVD, S1-S2 no S3-S4. RESP: Clear lungs throughout bilateral, no crackles, wheeze, rhonchi, symmetrical chest rise, nonlabored, able to speak in full sentences MS: Normal tone x4 extremities PSYCH: A+O x3, pleasant affect, appropriate speech, mood, insight and judgment Laboratory Laboratory Tests Test 03/10/18 11:40 03/10/18 14:40 03/10/18 17:50 White Blood Count 8.9 TH/MM3 Red Blood Count 4.69 MIL/MM3 Hemoglobin 13.1 GM/DL Hematocrit 38.7 % Mean Corpuscular Volume 82.5 FL Mean Corpuscular Hemoglobin 28.0 PG Mean Corpuscular Hemoglobin Concent 33.9 % Red Cell Distribution Width 14.6 % Platelet Count 312 TH/MM3 Mean Platelet Volume 8.2 FL Neutrophils (%) (Auto) 55.5 % Lymphocytes (%) (Auto) 38.3 % Monocytes (%) (Auto) 4.1 % Eosinophils (%) (Auto) 1.6 % Basophils (%) (Auto) 0.5 % Neutrophils # (Auto) 4.9 TH/MM3 Lymphocytes # (Auto) 3.4 TH/MM3 Monocytes # (Auto) 0.4 TH/MM3 Eosinophils # (Auto) 0.1 TH/MM3 Basophils # (Auto) 0.0 TH/MM3 CBC Comment DIFF FINAL Differential Comment Prothrombin Time 10.7 SEC Prothromb Time International Ratio 1.1 RATIO Activated Partial Thromboplast Time 20.3 SEC Blood Urea Nitrogen 11 MG/DL Creatinine 1.12 MG/DL Random Glucose 279 MG/DL Calcium Level 9.2 MG/DL Magnesium Level 1.8 MG/DL Sodium Level 138 MEQ/L Potassium Level 4.2 MEQ/L Chloride Level 106 MEQ/L Carbon Dioxide Level 20.0 MEQ/L Anion Gap 12 MEQ/L Estimat Glomerular Filtration Rate 61 ML/MIN Troponin I LESS THAN 0.02 NG/ML LESS THAN 0.02 NG/ML LESS THAN 0.02 NG/ML Total Creatine Kinase 153 U/L 132 U/L Creatine Kinase MB 2.0 NG/ML 1.9 NG/ML Imaging Last 24 hours Impressions Chest X-Ray 03/10/18 1127 Signed Impressions: Service Date/Time: February 11:35 - CONCLUSION: No acute disease. Francis Mahajan MD Assessment and Plan Assessment and Plan Chest pain-monitored on telemetry overnight. Ruled out with 3 sets of EKGs and cardiac enzymes. Proceed with Lexiscan testing this am. Previous seen and evaluated by Dr. Martinez and patient's bee robber, Dr. Melissa, aware of plan of care. Carlie Bermudez Mar 11, 2018 08:23
[2018-03-11 08:24] VITALS: BP 142/88; PULSE 84; RESP 20; TEMP 97.9; O2SAT 99
[2018-03-11] MEDS ORDERED: ASPIRIN 325 MG TAB PO SCH (09:00)
[2018-03-11] MEDS ORDERED: REGADENOSON INJ 0.4 MG/5 ML SYR ONE (10:00)
--- NOTE | 2018-03-11 11:50 | RADRPT ---
EXAM DATE/TIME: 03/11/2018 09:30 [place] COMPARISON: No previous studies available for comparison. INDICATIONS : Left sided chest pain for one day with nausea. Angina. Coronary artery disease. DOSE: 26.1 mCi Tc99m Myoview at stress. 8.2 mCi Tc99m Myoview at rest. 0.4 mg Lexiscan STRESS SYMPTOMS: Short of breath and nausea. EJECTION FRACTION: 58% MEDICAL HISTORY : Diabetes mellitus type 2. Hypertension. SURGICAL HISTORY : Coronary artery stent. Hysterectomy. ENCOUNTER: Initial ACUITY: 1 day PAIN SCALE: 5/10 LOCATION: Left chest TECHNIQUE: The patient underwent pharmacologic stress with infusion of prescribed dose. Continuous ECG tracing was monitored during stress. Gated SPECT imaging was performed after stress and conventional SPECT i maging was performed at rest. The examination was performed on a SPECT/CT scanner, both attenuation and non-corrected datasets were reviewed. FINDINGS: DISTRIBUTION: The maximum perfused segment at stress is in the lateral wall. PERFUSION STUDY: The pattern of perfusion at stress is within normal limits. GATED STUDY: There is intact wall motion and thickening without hypokinetic or dyskinetic segments. CONCLUSION: 1. No evidence for significant stress-induced ischemia. 2. No focal wall motion abnormality with EF of 58%. RISK CATEGORY: Low (<1% Annual Mortality Rate) Gabriel Hernández MD on March 11, 2018 at 11:43 Board Certified Radiologist. This report was verified electronically.
--- NOTE | 2018-03-11 12:01 | HHI.DCPOC ---
Discharge Care Plan Diagnosis: (1) Atypical chest pain (2) Hx of coronary artery disease (3) Diabetes mellitus, type 2 Goals to Promote Your Health * To prevent worsening of your condition and complications * To maintain your health at the optimal level Directions to Meet Your Goals Take your medications as prescribed Follow your dietary instruction Follow activity as directed Keep your appointments as scheduled Take your immunizations and boosters as scheduled If your symptoms worsen call your PCP, if no PCP go to Urgent Care Center or Emergency Room Smoking is Dangerous to Your Health. Avoid second hand smoke Call the 24-hour hour crisis hotline for domestic abuse at Carlie Bermudez Mar 11, 2018 12:01
--- NOTE | 2018-03-12 11:32 | TR ---
Date Performed: 03/11/2018 Time Performed: 09:56:12 DOCTOR: Mohamud Patel DRUG LIST: CLINICAL HISTORY: REASON FOR TEST: REASON FOR ENDING: OBSERVATION: CONCLUSION: COMMENTS: Lexiscan stress test was performed under standard four minute protocol. Radionuclide was injected one minute prior to ending the test. No electrocardiographic abormalities were present t o suggest ischemia. Nuclear imaging and interpretation are pending.
--- NOTE | 2018-03-12 11:55 | EKG ---
Date Performed: 03/10/2018 Time Performed: 18:13:02 PTAGE: 57 years EKG: Sinus rhythm ARM LEADS REVERSED ATYPICAL ECG PREVIOUS TRACING : 03/10/2018 15.22 Compared to previous tracing, arm lead reversal is new. DOCTOR: Mohamud Patel Interpretating Date/Time 03/12/2018 11:54:06
--- NOTE | 2018-03-12 11:56 | EKG ---
Date Performed: 03/10/2018 Time Performed: 15:22:30 PTAGE: 57 years EKG: Sinus rhythm NONSPECIFIC T-WAVE ABNORMALITY BORDERLINE ECG PREVIOUS TRACING : 03/10/2018 11.14 Since previous tracing, no significant change noted DOCTOR: Mohamud Patel Interpretating Date/Time 03/12/2018 11:55:24
--- NOTE | 2018-03-12 11:58 | EKG ---
Date Performed: 03/10/2018 Time Performed: 11:14:50 PTAGE: 57 years EKG: Sinus rhythm INFERIOR MYOCARDIAL INFARCTION ABNORMAL ECG Since PREVIOUS TRACING , no significant change noted DOCTOR: Mohamud Patel Interpretating Date/Time 03/12/2018 11:57:07
== END 2018-03-11 14:41 | disposition home or self-care (01) ==
LOC: NEPC 10:52 → NEDA 12:32 → NEPGCP 14:44
PROVIDERS: ADMIT Internal Medicine Cardiovascular Disease; ATTEND Internal Medicine Cardiovascular Disease
DX: R07.89 Other chest pain (principal); R06.02 Shortness of breath; R11.0 Nausea; I25.10 Atherosclerotic heart disease of native coronary artery without angina pectoris; E78.5 Hyperlipidemia, unspecified; I10 Essential (primary) hypertension; I25.2 Old myocardial infarction; R94.31 Abnormal electrocardiogram [ECG] [EKG]; E78.00 Pure hypercholesterolemia, unspecified; E11.9 Type 2 diabetes mellitus without complications; Z79.899 Other long term (current) drug therapy; Z79.82 Long term (current) use of aspirin
CPT/HCPCS: 71045; 78452; 80048; 82550; 82552; 82948; 83735; 84484; 85025; 85610; 85730; 93005; 93017; 96372; 99285; A9502; G0378; J1815; J2270; J2785

== ENCOUNTER 2018-09-23 21:39 | Inpatient (IN) ==
--- NOTE | 2018-09-23 23:01 | XR ---
EXAM DATE: 09/23/2018 10:55 PM EDT AGE/SEX: 58 years / Female INDICATIONS: Chest pain. CLINICAL DATA: This is the patient's initial encounter. Patient reports that signs and symptoms have been present for 1 day and indicates a pain score of 4/10. MEDICAL/SURGICAL HISTORY: . Cardiovascular disease. Diabetes mellitus type 2. Hypercholesterole jimmy. Hysterectomy. COMPARISON: [facility] [place], CHEST SINGLE AP, 03/10/2018. . FINDINGS: A single AP view of the chest demonstrates the lungs to be symmetrically aerated without evidence of mass, infiltrate or effusion. The cardiomediastinal contours are unremarkable. Osseous structures a re intact. CONCLUSION: Negative examination. Electronically signed by: Dave Garrett MD 09/23/2018 11:00 PM EDT
--- NOTE | 2018-09-23 23:34 | ED ---
HPI General Chief Complaint: Chest Pain Stated Complaint: chest pain Time Seen by Provider: 09/23/18 22:37 Source: patient and family Mode of arrival: ambulatory Limitations: no limitations History of Present Illness HPI narrative: 58-year-old female with a significant history of coronary artery disease the presents to the ED for evaluation of chest pain. Patient has had chest pain for about a week. Per patient is progressively getting worse. She denies any urinary or bowel movement issues. She states that the pain gets worse with stress and movement. She took 4 nitro today with minimal improvement of the symptoms which was what prompted her evaluation today. She also spoke with Dr. Melissa who is her retail pharmacy manager today who recommended that she comes here. Patient was admitted recently in July for evaluation of similar. She had another heart cath that showed no significant disease. She did not had stenting at that time and they thought that she could have increase of her medications and may be this will help with her symptoms but she continues to have symptoms. She was told by Dr. Melissa that if anything worsens to come to the ED as he apparently is agronomy specialist. Patient currently the pain is 2 out of 10 and seems to have improved but she just took a nitro before and put on the room. She states that she has a history of diabetes and high blood pressure. States feeling nauseous today but no vomiting. She states some of the pain is in the epigastric area. Related Data Home Medications Medication Instructions Recorded Confirmed aspirin [Aspir-81] 81 mg PO DAILY 08/03/18 09/24/18 atorvastatin 20 mg PO DAILY 08/03/18 09/24/18 insulin glargine [Lantus U-100 25 unit SUB-Q DAILY 08/03/18 09/24/18 Insulin] insulin lispro [Humalog U-100 45 unit SUB-Q DAILY 08/03/18 09/24/18 Insulin] isosorbide mononitrate 30 mg PO QAM 08/03/18 09/24/18 methocarbamol 500 mg PO QID 08/03/18 09/24/18 nitroglycerin 0.3 mg SUBLINGUAL Q5-15M PRN 08/03/18 09/24/18 sertraline 50 mg PO DAILY 08/03/18 09/24/18 temazepam 7.5 mg PO HS 08/03/18 09/24/18 ticagrelor [Brilinta] 90 mg PO BID 08/03/18 09/24/18 Previous Rx's Medication Instructions Recorded ranolazine [Ranexa] 500 mg PO Q12H 90 Days #90 tab 08/03/18 Allergies Allergy/AdvReac Type Severity Reaction Status Date / Time metoprolol Allergy Severe HALLUCINATI Verified 09/23/18 22:25 ONS famotidine Allergy Unknown RASH Verified 09/23/18 22:25 lisinopril Allergy Unknown Itching Verified 09/23/18 22:25 insulin detemir AdvReac Unknown Diarrhea Verified 09/23/18 22:25 Review of Systems ROS: all other systems reviewed are negative PMFSH History History Provided By: Patient Social History Social History Second Hand Smoke Exposure: No Smoking Status: Never smoker How Often Do You Have a Drink Containing Alcohol: Never Recent Travel in [facility] within the Last 8 Weeks: No Recent Out of Country Travel within the Last 8 Weeks: No Exam Narrative Exam Narrative: GENERAL: SKIN: Warm and dry. HEAD: Atraumatic. Normocephalic. EYES: Pupils equal and round. No scleral icterus. No injection or drainage. ENT: No nasal bleeding or discharge. Mucous membranes pink and moist. NECK: Trachea midline. No JVD. CARDIOVASCULAR: Regular rate and rhythm. RESPIRATORY: No accessory muscle use. Clear to auscultation. Breath sounds equal bilaterally. GASTROINTESTINAL: Abdomen soft, non-tender, nondistended. Hepatic and splenic margins not palpable. MUSCULOSKELETAL: Extremities without clubbing, cyanosis, or edema. No obvious deformities. NEUROLOGICAL: Awake and alert. No obvious cranial nerve deficits. Motor grossly within normal limits. Five out of 5 muscle strength in the arms and legs. Normal speech. PSYCHIATRIC: Appropriate mood and affect; insight and judgment normal. Course Initial Documented Vital Signs Temperature 98.4 F 09/23/18 22:18 Pulse Rate 88 09/23/18 22:18 Blood Pressure 129/75 09/23/18 22:18 Pulse Oximetry 98 09/23/18 22:18 Last Documented Vital Signs Temperature 98.4 F 09/23/18 22:18 Pulse Rate 79 09/24/18 02:00 Respiratory Rate 14 09/24/18 02:00 Blood Pressure 113/67 09/24/18 02:00 Pulse Oximetry 96 09/24/18 02:00 Medical Decision Making MELISSA Attestation MELISSA supervised visit: Yes Attestation: I, Dr. Gill, have reviewed the advance practice practitioner's documentation and am in agreement, met with the patient face to face, made the diagnosis, and the medical decision making was done by me. *My assessment and Findings: Patient is a 58-year-old female who presents the emergency room with unstable angina. Patient does have history of coronary artery disease, patient was being treated medically for this, reports that today around 4 PM, she began to have chest pain that radiate across her chest and her left arm. Patient reports that it felt like a pressure to her chest. Patient did take 4 sublingual nitroglycerin which seemed to help her chest pain but she still continues to have a little bit of chest pain at this time. Patient will be admitted to the hospital for unstable angina, heparin drip as well as a nitro drip was initiated. case reviewed with Dr. Alvarez who accepts pt to service for admission MDM Narrative Medical decision making narrative: 58 yo female here for chest pain. Labs and imaging ordered. Started on nitropaste. Labs and imaging still pending at the writing of this note. Case signed out to my attending pending disposition. Medical Screen Exam Complete: Yes Emergency Medical Condition: Yes Medical Records Medical records reviewed: Yes I reviewed the patient's medical records. Lab Data Lab results reviewed: Yes I reviewed the patient's lab results. Result diagrams: 09/23/18 00:01 09/23/18 00:01 Lab Results 09/23/18 09/23/18 09/23/18 Range/Units 00:01 00:01 00:01 WBC 9.9 (4.0-11.0) th/mm3 RBC 4.42 (4.00-5.30) mil/mm3 Hgb 13.0 (11.6-15.3) gm/dL Hct 37.7 (35.0-46.0) % MCV 85.2 (80.0-100.0) fL MCH 29.3 (27.0-34.0) pg MCHC 34.5 (32.0-36.0) % RDW 14.1 (11.6-17.2) % Plt Count 293 (150-450) th/mm3 MPV 8.3 (7.0-11.0) fL Neut % (Auto) 48.5 (16.0-70.0) % Lymph % (Auto) 44.2 H (9.0-44.0) % [place] % (Auto) 6.1 (0.0-8.0) % Eos % (Auto) 0.8 (0.0-4.0) % Baso % (Auto) 0.4 (0.0-2.0) % Neut # (Auto) 4.8 (1.8-7.7) th/mm3 Lymph # (Auto) 4.4 (1.0-4.8) th/mm3 [place] # (Auto) 0.6 (0.0-0.9) th/mm3 Eos # (Auto) 0.1 (0.0-0.4) th/mm3 Baso # (Auto) 0.0 (0.0-0.2) th/mm3 WBC Differential . Differential Comment Auto diff final PT 11.2 (9.8-11.6) sec INR 1.1 Ratio APTT 25.0 (23.4-31.7) sec Sodium 141 (136-145) meq/L Potassium 4.2 (3.5-5.1) meq/L Chloride 105 (98-107) meq/L Carbon Dioxide 29.3 (21.0-32.0) meq/L Anion Gap 7 (5-15) meq/L BUN 17 (7-18) mg/dL Creatinine 1.23 H (0.50-1.00) mg/dL Estimated GFR 55 L (>89) mL/min Random Glucose 85 (74-106) mg/dL Calcium 8.6 (8.5-10.1) mg/dL Total Bilirubin 0.3 (0.2-1.0) mg/dL AST 30 (15-37) U/L ALT 28 (10-53) U/L Alkaline Phosphatase 72 (45-117) U/L Total Creatine Kinase 157 (26-192) U/L CK-MB (CK-2) 1.1 (0.5-3.6) ng/mL Troponin I Less than 0.02 L (0.02-0.05) ng/mL Total Protein 7.5 (6.4-8.2) g/dL Albumin 3.5 (3.4-5.0) g/dL Lipase 109 (73-393) U/L Imaging Data Attestation: I personally reviewed and interpreted this imaging study as follows : Radiologist's impression: Chest X-Ray 09/23/18 22:38 CONCLUSION: Negative examination. ECG Data Attestation: I personally reviewed and interpreted this ECG as follows: Interpretation: EKG shows sinus rhythm with no sign of acute ischemia or arrhythmia read by me and attending dr Gill. CA int 142 ms, vent rate of 71 bpm. Discharge Plan Discharge Disposition Patient Disposition: 30 Still Patient Discharge Condition Condition: Stable Discharge Details Diagnosis: Unstable angina Physicians Team ED Provider: Lela Gill ED Midlevel Provider: Guillermo Morgan Primary Care Provider: UNKNOWN, Rxs /Orders / Referrals /Forms Prescriptions: No Action methocarbamol 500 mg Tablet 500 mg PO QID RF: 0 atorvastatin 20 mg Tablet 20 mg PO DAILY RF: 0 insulin glargine [Lantus U-100 Insulin] 100 unit/mL Solution 25 unit SUB-Q DAILY RF: 0 nitroglycerin 0.3 mg Tablet, Sublingual 0.3 mg SUBLINGUAL Q5-15M PRN (Reason: Chest Pain) RF: 0 aspirin [Aspir-81] 81 mg Tablet,Delayed Release (Dr/Ec) 81 mg PO DAILY RF: 0 temazepam 7.5 mg Capsule 7.5 mg PO HS RF: 0 isosorbide mononitrate 60 mg Tablet Extended Release 24 Hr 30 mg PO QAM RF: 0 sertraline 50 mg Tablet 50 mg PO DAILY RF: 0 insulin lispro [Humalog U-100 Insulin] 100 unit/mL Cartridge 45 unit SUB-Q DAILY RF: 0 ticagrelor [Brilinta] 90 mg Tablet 90 mg PO BID RF: 0 ranolazine [Ranexa] 500 mg Tablet Extended Release 12 Hr 500 mg PO Q12H 90 Days Qty: 90 RF: 3 Discharge Instructions Patient Printed Instructions: Chest Pain (ED) Status ED Status: Pending Admission
[2018-09-24] MEDS ORDERED: Heparin 10,000 UNITS/10 ML Vial (for IV use) IV.PUSH STA (00:03)
[2018-09-24] MEDS ORDERED: Nitroglycerin Drip Premix 50 MG/250 ML BOTTLE IV.CONT PRN (00:03)
[2018-09-24 00:23] LABS: Baso % (Auto) 0.4 % (0.0-2.0); Eos # (Auto) 0.1 th/mm3 (0.0-0.4); Eos % (Auto) 0.8 % (0.0-4.0); Hematocrit 37.7 % (35.0-46.0); Lymph # (Auto) 4.4 th/mm3 (1.0-4.8); Lymph % (Auto) 44.2 % (9.0-44.0); Mean Corpuscular HGB Conc 34.5 % (32.0-36.0); Mean Corpuscular Hemoglobin 29.3 pg (27.0-34.0); Mean Corpuscular Volume 85.2 fL (80.0-100.0); Mean Platelet Volume 8.3 fL (7.0-11.0); Mono # (Auto) 0.6 th/mm3 (0.0-0.9); Mono % (Auto) 6.1 % (0.0-8.0); Neut # (Auto) 4.8 th/mm3 (1.8-7.7); Neut % (Auto) 48.5 % (16.0-70.0); Platelet Count 293 th/mm3 (150-450); Red Blood Count 4.42 mil/mm3 (4.00-5.30); Red Cell Distribution Width 14.1 % (11.6-17.2); White Blood Count 9.9 th/mm3 (4.0-11.0)
[2018-09-24 00:39] LABS: INR 1.1 Ratio; Prothrombin Time 11.2 sec (9.8-11.6)
[2018-09-24] MEDS: Heparin Drip 25,000 UNIT/250 ML BAG IV.CONT PRN (00:45)
[2018-09-24 00:51] LABS: Alanine Aminotransferase 28 U/L (10-53); Albumin 3.5 g/dL (3.4-5.0); Anion Gap 7 meq/L (5-15); Aspartate Aminotransferase 30 U/L (15-37); Blood Urea Nitrogen 17 mg/dL (7-18); Calcium 8.6 mg/dL (8.5-10.1); Carbon Dioxide 29.3 meq/L (21.0-32.0); Chloride 105 meq/L (98-107); Glomerular Filtration Rate 55 mL/min (>89); Glucose,Random 85 mg/dL (74-106); Lipase 109 U/L (73-393); Potassium 4.2 meq/L (3.5-5.1); Sodium 141 meq/L (136-145)
[2018-09-24 00:55] LABS: Alkaline Phosphatase 72 U/L (45-117); Creatine Kinase 157 U/L (26-192); Total Protein 7.5 g/dL (6.4-8.2)
[2018-09-24 01:07] LABS: Creatine Kinase MB 1.1 ng/mL (0.5-3.6)
[2018-09-24] MEDS ORDERED: Bisacodyl 10 MG Supp RECTAL PRN (02:29)
[2018-09-24] MEDS ORDERED: Morphine Inj 4 MG/ML Vial IV.PUSH PRN (02:29)
[2018-09-24] MEDS ORDERED: Sodium Chloride 0.9% 2 ML Flush PRN IV.FLUSH (03:21)
--- NOTE | 2018-09-24 03:21 | P.HPIM ---
History of Present Illness Primary Care Physician: UNKNOWN History of Present Illness: This is a 58-year-old female with a PMH of CAD and DM who presented to the ER w / complaints of chest pain x1 wk. Follows w/ Dr. Melissa as outpatient, s/p Cath 08/03/18 w/ significant small vessel disease, not amenable to intervention and recommendation for medical management, has been on Imdur and was started on Ranexa, but notes minimal improvement in chest pain. States chest pain is substernal, intermittent, moderate to severe, occurs at rest and w/ exertion, + improvement w/ nitro. On arrival, BP 128/76, HR 78, O2 sat 98% on RA, Afebrile. CBC unremarkable. INR 1.1. Trop negative. Chemistry unremarkable except for creatinine 1.23, previously 1.02 on 08/03/2018. CXR negative. Currently on Heparin/NTG gtt w/ improvement. - Diagnosis (1) Unstable angina (2) Renal insufficiency Inpatient Certification: I certify that the inpatient services were ordered in accordance with Medicare regulations governing the order. This includes certification that hospital inpatient services are reasonable and necessary and in the case of services not specified as inpatient-only under 42 CFR 419.22(n), that they are appropriately provided as inpatient services in accordance to with the 2-midnight benchmark under 43 CFR 412.3(e) Estimated Total Length of Stay (Days): 2 Plans for Post Hospital Care: Not yet determined Review of Systems PAST FAMILY HISTORY: Reviewed. No h/o DM or CAD All other systems reviewed negative except as stated in HPI PMFSH - History History Provided By: Patient - Tobacco History Second Hand Smoke Exposure: No Smoking Status: Never smoker - Alcohol History How Often Do You Have a Drink Containing Alcohol: Never - Travel History Recent Travel in the [place] Within the Last 8 Weeks: No Recent Travel Out of the Country Within the Last 8 Weeks: No - Immunization History Tetanus Immunization: Unsure Medications and Allergies Active Medications: Active Medications Acetaminophen (Tylenol) 650 mg PO Q4H PRN PRN Reason: Temp > 100.4 Al Hydroxide/Mg Hydroxide (Milk Of Magnesia Liq) 30 ml PO Q12H PRN PRN Reason: Mild Constipation Bisacodyl (Dulcolax Supp) 10 mg RECTAL DAILY PRN PRN Reason: SEVERE CONSITIPATION Heparin Sodium/Dextrose (Heparin/D5w 25,000 U/250 Ml) 25,000 unit in 250 mls @ 0 mls/hr IV.CONT TITRATE PRN; Protocol PRN Reason: Per Protocol Last Admin: 09/24/18 00:45 Dose: 900 units/hr, 9 mls/hr Nitroglycerin/Dextrose (Nitroglycerin Drip Premix) 50 mg in 250 mls @ 0 mls/hr IV.CONT TITRATE PRN; Protocol PRN Reason: Per Protocol Last Admin: 09/24/18 00:46 Dose: 5 mcg/min, 1.5 mls/hr Sodium Chloride (Ns Inj) 1,000 mls @ 100 mls/hr IV.CONT .Q10H GOLDY Lactulose (Lactulose Liq) 30 ml PO DAILY PRN PRN Reason: SEVERE CONSITIPATION Morphine Sulfate (Morphine Inj) 2 mg IV.PUSH Q4H PRN PRN Reason: PAIN 6-10 Ondansetron HCl (Zofran Inj) 4 mg IV.PUSH Q6H PRN PRN Reason: NAUSEA OR VOMITING Senna/Docusate Sodium (Jacqui-Colace) 1 tab PO BID GOLDY Sennosides (Senokot) 17.2 mg PO Q12H PRN PRN Reason: Moderate Constipation Sodium Chloride (Ns Flush) 2 ml IV.FLUSH UNSCH PRN PRN Reason: FLUSH AFTER USING IV ACCESS Allergies Allergy/AdvReac Type Severity Reaction Status Date / Time metoprolol Allergy Severe HALLUCINATI Verified 09/23/18 22:25 ONS famotidine Allergy Unknown RASH Verified 09/23/18 22:25 lisinopril Allergy Unknown Itching Verified 09/23/18 22:25 insulin detemir AdvReac Unknown Diarrhea Verified 09/23/18 22:25 Home Medications Medication Instructions Recorded Confirmed Type aspirin [Aspir-81] 81 mg PO DAILY 08/03/18 09/24/18 History atorvastatin 20 mg PO DAILY 08/03/18 09/24/18 History insulin glargine [Lantus U-100 25 unit SUB-Q DAILY 08/03/18 09/24/18 History Insulin] insulin lispro [Humalog U-100 45 unit SUB-Q DAILY 08/03/18 09/24/18 History Insulin] isosorbide mononitrate 30 mg PO QAM 08/03/18 09/24/18 History methocarbamol 500 mg PO QID 08/03/18 09/24/18 History nitroglycerin 0.3 mg SUBLINGUAL Q5-15M PRN 08/03/18 09/24/18 History sertraline 50 mg PO DAILY 08/03/18 09/24/18 History temazepam 7.5 mg PO HS 08/03/18 09/24/18 History ticagrelor [Brilinta] 90 mg PO BID 08/03/18 09/24/18 History Exam Vital signs: Vital Signs 09/23/18 22:18 09/23/18 22:25 09/24/18 00:00 Temperature 98.4 F Pulse Rate 88 78 Respiratory Rate 24 18 Blood Pressure 129/75 128/76 118/72 Pulse Oximetry 98 98 97 09/24/18 00:06 09/24/18 00:07 09/24/18 01:00 Temperature Pulse Rate 72 Respiratory Rate 12 Blood Pressure 105/59 L Pulse Oximetry 97 97 97 09/24/18 01:30 09/24/18 02:00 09/24/18 02:45 Temperature Pulse Rate 75 79 74 Respiratory Rate 14 14 19 Blood Pressure 114/66 113/67 136/77 Pulse Oximetry 98 96 Intake & Output 09/23/18 09/23/18 09/24/18 06:59 18:59 06:59 Weight 73.936 kg Narrative: PE: GENERAL: Very pleasant middle-aged female in no acute distress. SKIN: Focused skin assessment warm and dry. HEENT: PERRLA, EOMI. No scleral icterus or conjunctival pallor. No lid lag or facial droop. CARDIOVASCULAR: Regular rate and rhythm. No obvious murmurs to auscultation. No chest tenderness to palpation. RESPIRATORY: No obvious rhonchi or wheezing. Clear to auscultation. Breath sounds equal bilaterally. GASTROINTESTINAL: Abdomen soft, non-tender, nondistended. BS normal. MUSCULOSKELETAL: Extremities without clubbing, cyanosis, or edema. No obvious deformities. NEUROLOGICAL: Awake, alert and oriented x4. No focal neurologic deficits. Moving both upper and lower extremities spontaneously. PSYCHIATRIC: Appropriate mood and affect. Insight and judgment normal. Results - Labs CBC & Chem 7: 09/23/18 00:01 09/23/18 00:01 Labs: Short CBC 09/23/18 Range/Units 00:01 WBC 9.9 (4.0-11.0) th/mm3 Hgb 13.0 (11.6-15.3) gm/dL Hct 37.7 (35.0-46.0) % Plt Count 293 (150-450) th/mm3 BMP 09/23/18 00:01 Sodium 141 Potassium 4.2 Chloride 105 Carbon Dioxide 29.3 BUN 17 Creatinine 1.23 H Calcium 8.6 Cardiac Enzymes 09/23/18 Range/Units 00:01 Total Creatine Kinase 157 (26-192) U/L CK-MB (CK-2) 1.1 (0.5-3.6) ng/mL Troponin I Less than 0.02 L (0.02-0.05) ng/mL Liver Function 09/23/18 Range/Units 00:01 Total Bilirubin 0.3 (0.2-1.0) mg/dL AST 30 (15-37) U/L ALT 28 (10-53) U/L Alkaline Phosphatase 72 (45-117) U/L Albumin 3.5 (3.4-5.0) g/dL - Imaging Impressions Chest X-Ray 09/23/18 22:38 CONCLUSION: Negative examination. Caprini VTE Risk Assessment Caprini VTE Risk Assessment: No/Low Risk (score <= 1) Caprini Risk Assessment Model: Point Value = 1 Point Value = 2 Point Value = 3 Point Value = 5 Age 41-60 Minor surgery BMI > 25 kg/m2 Swollen legs Varicose veins or History of unexplained or recurrent spontaneous Oral contraceptives or hormone replacement Sepsis (< 1 month) Serious lung disease, including pneumonia (< 1 month) Abnormal pulmonary function Acute myocardial infarction Congestive heart failure (< 1 month) History of inflammatory bowel disease Medical patient at bed rest Age 61-74 Arthroscopic surgery Major open surgery (> 45 min) Laparoscopic surgery (> 45 min) Malignancy Confined to bed (> 72 hours) Immobilizing plaster cast Central venous access Age >= 75 History of VTE Family history of VTE Factor V Leiden Prothrombin [id number] Lupus anticoagulant Anticardiolipin antibodies Elevated serum homocysteine Heparin-induced thrombocytopenia Other congenital or acquired thrombophilia Stroke (< 1 month) Elective arthroplasty Hip, pelvis, or leg fracture Acute spinal cord injury (< 1 month) Prophylaxis Regimen: Total Risk Factor Score Risk Level Prophylaxis Regimen 0-1 Low Early ambulation 2 Moderate Order ONE of the following: *Sequential Compression Device (SCD) *Heparin 5000 units SQ BID 3-4 Higher Order ONE of the following medications: *Heparin 5000 units SQ TID *Enoxaparin/Lovenox 40 mg SQ daily (WT < 150 kg, CrCl > 30 mL/min) *Enoxaparin/Lovenox 30 mg SQ daily (WT < 150 kg, CrCl > 10-29 mL/min) *Enoxaparin/Lovenox 30 mg SQ BID (WT < 150 kg, CrCl > 30 mL/min) AND/OR *Sequential Compression Device (SCD) 5 or more Highest Order ONE of the following medications: *Heparin 5000 units SQ TID (Preferred with Epidurals) *Enoxaparin/Lovenox 40 mg SQ daily (WT < 150 kg, CrCl > 30 mL/min) *Enoxaparin/Lovenox 30 mg SQ daily (WT < 150 kg, CrCl > 10-29 mL/min) *Enoxaparin/Lovenox 30 mg SQ BID (WT < 150 kg, CrCl > 30 mL/min) AND *Sequential Compression Device (SCD) Assessment and Plan - Assessment (1) Unstable angina Code(s): I20.0 - Unstable angina Status: Acute (2) Renal insufficiency Code(s): N28.9 - Disorder of kidney and ureter, unspecified Status: Acute - Plan A/P: 1. Unstable Angina: c/o ongoing chest pain both w/ exertion and at rest, follows w/ Dr. Melissa, previous Cath 08/03/18 w/ small vessel disease, recommendation for medical management, pt notes minimal improvement w/ Ranexa. Initial trop negative. Admit to [facility], telemetry, continue Heparin/NTG gtt, Morphine prn, check serial cardiac enzymes for trend. Consult Dr. Melissa for further eval/intervention. 2. Renal Insufficiency: Acute on Chronic. Creatinine 1.23, previously 1.02 on 08/03/18, IVF for hydration, monitor I/O, repeat labs in am. 3. DM: hold sliding scale due to ALLERGY, resume home medications once taking adequate PO 4. DVT Prophylaxis: Heparin gtt 5. Social work for d/c planning as needed 6. Case discussed w/ ER physician at length, labs/records/imaging reviewed by me.
[2018-09-24] MEDS: Sod Chloride 0.9% Inj 1,000 ML IV.CONT SCH ×3 (04:39→23:19)
[2018-09-24] MEDS: Isosorbide Mononitrate 30 MG ER 24HR Tablet (Imdur) PO SCH (10:13)
[2018-09-24] MEDS: Senna/Docusate Sodium 8.6/50 MG Tablet PO SCH ×3 (10:13→21:17)
[2018-09-24] MEDS: Sertraline 50 MG Tablet PO SCH (10:14)
[2018-09-24] MEDS: Ranolazine 500 MG 12HR ER Tablet PO SCH ×2 (10:14→21:15)
[2018-09-24] MEDS: Sodium Chloride 0.9% 2 ML Flush BID IV.FLUSH SCH ×2 (10:27→21:14)
[2018-09-24] MEDS ORDERED: Insulin NovoLOG Aspart Correctional Sugar Inj SQ SCH (12:00)
[2018-09-24] MEDS: Insulin NovoLOG Aspart Correctional Sugar Inj SQ SCH ×2 (17:09→21:14)
--- NOTE | 2018-09-24 17:58 | US ---
EXAM DATE: 09/24/2018 5:50 PM EDT AGE/SEX: 58 years / Female INDICATIONS: Pre-op for CABG. CLINICAL DATA: This is the patient's initial encounter. Patient reports that signs and symptoms have been present for 1 week and indicates a pain score of 0/10. MEDICAL/SURGICAL HISTORY: . Angina. None. COMPARISON: No prior exams available for comparison. TECHNIQUE: Venous ultrasound of both lower extremities was performed from the inguinal ligament to t he proximal calf. Real-time, color Doppler and spectral tracing, compression and augmentation techni ques were used. FINDINGS: Right Leg: Normal compression of the deep venous system from the inguinal region to the proximal onesimo f. No echogenic clot is seen. Normal response of the venous system to augmentation and respiration. Left Leg: Normal compression of the deep venous system from the inguinal region to the proximal calf . No echogenic clot is seen. Normal response of the venous system to augmentation and respiration. Other: None. CONCLUSION: Negative study. No venous thrombosis of either lower extremity. Electronically signed by: Dave Max MD 09/24/2018 5:56 PM EDT
--- NOTE | 2018-09-24 17:58 | US ---
EXAM DATE: 09/24/2018 5:54 PM EDT AGE/SEX: 58 years / Female INDICATIONS: Pre-op for CABG. CLINICAL DATA: This is the patient's initial encounter. Patient reports that signs and symptoms have been present for 1 week and indicates a pain score of 0/10. MEDICAL/SURGICAL HISTORY: . Angina. None. COMPARISON: [facility] [place], VENOUS DOPPLER LEG BI, 09/24/2018. . MEASUREMENTS: RIGHT THIGH: Proximal:__7 mm Mid:__ 2 mm Distal:__3 mm LEFT THIGH: Proximal:__4 mm Mid:__2 mm Distal:__3 mm RIGHT CALF: Proximal:__2 mm Mid:__Non-visualized Distal:__Non-visualized LEFT CALF: Proximal:__2 mm Mid:__1 mm Distal:__Non-visualized FINDINGS: The venous system of the lower extremities are patent by color Doppler imaging. Measurements of the leg veins (in mm) are listed above. The greater saphenous vein is nonvisualized in the mid to distal right calf and distal left calf. CONCLUSION: Nonvisualization of the greater saphenous vein and portions of the lower legs bilaterally. Electronically signed by: Marcell Fong MD 09/24/2018 5:57 PM EDT
--- NOTE | 2018-09-24 18:51 | MB ---
cc: Chito Melissa DO DATE: 09/24/2018 REASON FOR CONSULTATION: Chest pain. HISTORY OF PRESENT ILLNESS: Aditi Lira is a pleasant 58-year-old female who sees myself in the office and presented to [facility] due to chest pain. She has known multivessel disease with overall small vessels and recently underwent a cardiac catheterization and we have been trying to treat her medically as best as possible. She called the office this week complaining of chest pain and I asked that she come in to be further evaluated as she has known significant disease. She waited all week and finally came in last night. She was started on a heparin drip and a nitroglycerin drip. In seeing her, she is currently hemodynamically stable with no chest pain. PAST MEDICAL HISTORY: 1. Coronary artery disease with a history of inferior ST elevation myocardial infarction (12/10/2017). 2. Diabetes mellitus type 2. 3. Hyperlipidemia. 4. Hypertension. PAST SURGICAL HISTORY: 1. Total abdominal hysterectomy. 2. Cardiac catheterization (12/10/2017). Left main has separate ostia. The LAD has a 90% eccentric lesion. Left circumflex sequential 80% lesion. RCA 100% occluded status post drug-eluting stent (3 x 26) to the mid RCA and drug-eluting stent (2.75 x 12) to the distal RCA. 3. Cardiac catheterization (08/03/2018) LAD 60% to 70% lesion in the proximal to mid portion. Distal before the apex has 90% disease. It gives off 1 major diagonal, which has an upper branch, which is overall small and a lower branch, which is extremely small with a long 90% lesion. Left circumflex is a moderate size vessel with diffuse 70% to 80% disease throughout the mid portion. It gives off a first obtuse marginal, which is overall small and diffusely diseased. Second obtuse marginal has tandem 80% lesions before an area of possible myocardial bridging. Stent in the stent in the mid and distal are patent. Distal stent appears to intermediate the PDA with a subtotal long 99% occlusion ostially. ALLERGIES: 1. METOPROLOL. 2. PEPCID. 3. LISINOPRIL. 4. INSULIN DETEMIR. MEDICATIONS: 1. Aspirin 81 mg daily. 2. Brilinta 90 mg b.i.d. 3. Nitro sublingual as needed. 4. Methocarbamol 500 mg q.i.d. 5. Humalog 40 units daily. 6. Lantus 25 units daily. 7. Lipitor 20 mg daily. 8. Temazepam 7.5 mg every night. 9. Ranexa 500 mg b.i.d. 10. Zoloft 50 mg daily. 11. Imdur 30 mg every morning. FAMILY HISTORY: Multiple people in her family have premature coronary artery disease. SOCIAL HISTORY: The patient rarely drinks alcohol. Denies tobacco or drug abuse. REVIEW OF SYSTEMS: Fourteen systems were reviewed including osteopathic. Pertinent positives and negatives above, otherwise negative. PHYSICAL EXAMINATION: VITAL SIGNS: Temperature 98.1, heart rate 67, blood pressure 116/68, respirations 14, pulse oximetry 98% on room air. GENERAL: The patient appears well, no acute distress. Alert, awake, oriented x3. HEENT: Extraocular muscles intact. Mucous membranes moist. NECK: Supple. No JVD at 45 degrees. No carotid bruits heard bilaterally. Carotid upstroke is brisk in nature. HEART: Regular rate and rhythm. Positive first and second sound without murmurs, gallops or rubs. LUNGS: Clear to auscultation bilaterally. No wheezes, rales or rhonchi. ABDOMEN: Soft, nontender, nondistended. No organomegaly noted. EXTREMITIES: Show no clubbing, cyanosis or edema. Femoral and distal pulses intact bilaterally. NEUROLOGIC: No focal deficits. SKIN: Warm, dry and intact. OSTEOPATHIC: No kyphoscoliosis, lordosis or paraspinal tender points. LABORATORY DATA: Hemoglobin 13.0, hematocrit 37.7, platelets 293. Potassium 4.2, BUN 17, creatinine 1.23. Troponin negative x3. Electrocardiogram (09/23/2018 at 2238): Sinus rhythm, inferior myocardial infarction. IMPRESSION: 1. Chest pain concerning for coronary insufficiency. 2. Multivessel coronary artery disease with a history of acute inferior ST elevation myocardial infarction (11/2017). 3. Premature coronary artery disease within the family. 4. Hypertension. 5. Hyperlipidemia. 6. Diabetes mellitus. RECOMMENDATIONS: 1. Ms. Lira presented as she continues to have chest pain on multiple antianginals. 2. She has been placed on a heparin drip and nitroglycerin drip. 3. I had a long discussion with her and she brought out consideration of coronary artery bypass grafting, which I think overall would be a possibility. I did review the films with Dr. Campos and he will see her in consultation to give her the risks and benefits from that standpoint. 4. Ultimately, it up to her how we proceed, but I did discuss that stenting of her vessels would be overall complex due to their diffuse nature and overall size and she understands that. 5. Further recommendations will be made based on the hospital course. Thank you for allowing me to see Aditi Lira. If there are any questions, please do not hesitate to call. Chito Melissa DO VGP/ct , 05:22 PM , 05:35 PM
[2018-09-25] MEDS: Insulin NovoLOG Aspart Correctional Sugar Inj SQ SCH ×6 (04:07→20:50)
[2018-09-25] MEDS: Heparin Drip 25,000 UNIT/250 ML BAG IV.CONT PRN (04:58)
[2018-09-25] MEDS ORDERED: Metoprolol Tartrate 25 MG Tablet PO SCH (05:00)
[2018-09-25 06:46] LABS: Baso % (Auto) 0.5 % (0.0-2.0); Eos # (Auto) 0.2 th/mm3 (0.0-0.4); Eos % (Auto) 2.2 % (0.0-4.0); Hematocrit 34.3 % (35.0-46.0); Hemoglobin 11.8 gm/dL (11.6-15.3); Lymph # (Auto) 3.4 th/mm3 (1.0-4.8); Lymph % (Auto) 48.1 % (9.0-44.0); Mean Corpuscular HGB Conc 34.5 % (32.0-36.0); Mean Corpuscular Hemoglobin 29.5 pg (27.0-34.0); Mean Corpuscular Volume 85.3 fL (80.0-100.0); Mean Platelet Volume 8.1 fL (7.0-11.0); Mono # (Auto) 0.4 th/mm3 (0.0-0.9); Mono % (Auto) 5.4 % (0.0-8.0); Neut # (Auto) 3.1 th/mm3 (1.8-7.7); Neut % (Auto) 43.8 % (16.0-70.0); Platelet Count 236 th/mm3 (150-450); Red Blood Count 4.02 mil/mm3 (4.00-5.30); Red Cell Distribution Width 14.4 % (11.6-17.2)
[2018-09-25 07:23] LABS: Alanine Aminotransferase 23 U/L (10-53); Alkaline Phosphatase 68 U/L (45-117); Anion Gap 5 meq/L (5-15); Aspartate Aminotransferase 15 U/L (15-37); Blood Urea Nitrogen 11 mg/dL (7-18); Calcium 7.7 mg/dL (8.5-10.1); Carbon Dioxide 27.2 meq/L (21.0-32.0); Chloride 110 meq/L (98-107); Glomerular Filtration Rate 68 mL/min (>89); Glucose,Random 202 mg/dL (74-106); Sodium 142 meq/L (136-145); Total Protein 6.6 g/dL (6.4-8.2)
[2018-09-25] MEDS: Ranolazine 500 MG 12HR ER Tablet PO SCH ×2 (08:09→20:50)
[2018-09-25] MEDS: Sertraline 50 MG Tablet PO SCH (08:09)
[2018-09-25] MEDS: Senna/Docusate Sodium 8.6/50 MG Tablet PO SCH ×2 (08:09→20:50)
--- NOTE | 2018-09-25 08:19 | P.PN ---
Subjective Interval history: This is a pleasant 58 y/o Female with CAD and DM II, who came to ER with Chest pain for one week, s/p Cath 08/03/18 w/ significant small vessel disease, not amenable to intervention and recommendation for medical management, on Imdur and Ranexa, Discussed in her bedroom with patient and nurse Mr. Vanegas, she has uncontrolled blood sugars and adjusted her Home Insulin she states uses Lantus 38 units at night started now and continue short acting Insulin premeal start with 15 units, and continue sliding scale, continue ADA diet, discussed at this time with her Primary human services program specialist Doctor Melissa, also Doctor Beth here to see the patient, recommended Bypass surgery to her [LAD], [OM1] and RPDA (beyond the coronary stent) distributions. The OM 2 is very small and likely not bypassable. Additional the LAD has diffuse distal disease which is likely not be reachable by grafting. awaiting for resolution of Renal dysfunction and she was on Brilinta will be off this medicine for five days before surgery. recommended to obtain Carotid duplex imaging and Echocardiogram result from Doctor Melissa's office. Physical Exam Vital signs: Vital Signs 09/24/18 09:14 09/24/18 11:05 09/24/18 16:00 Temperature 98.1 F 98.8 F Pulse Rate 67 92 H 67 Respiratory Rate 14 17 18 Blood Pressure 116/68 125/71 155/85 H Pulse Oximetry 98 98 99 09/24/18 19:15 09/24/18 20:00 09/24/18 21:00 Temperature 97.6 F Pulse Rate 79 78 74 Respiratory Rate 18 Blood Pressure 123/78 Pulse Oximetry 98 09/24/18 22:00 09/24/18 23:00 09/24/18 23:11 Temperature 98.2 F Pulse Rate 74 83 75 Respiratory Rate 18 Blood Pressure 128/77 Pulse Oximetry 97 09/25/18 00:47 09/25/18 01:00 EST 09/25/18 02:00 Temperature Pulse Rate 92 H 70 76 Respiratory Rate Blood Pressure Pulse Oximetry 09/25/18 03:00 09/25/18 03:51 09/25/18 04:00 Temperature 98 F Pulse Rate 74 81 98 H Respiratory Rate 18 Blood Pressure 127/74 Pulse Oximetry 96 09/25/18 05:00 09/25/18 06:00 Temperature Pulse Rate 70 70 Respiratory Rate Blood Pressure Pulse Oximetry Intake & Output 09/24/18 09/25/18 09/25/18 19:59 06:59 18:59 Intake Total Balance Weight Intake: IV Heparin/D5W 25,000 U/250 mL 25, 000 unit In 250 ml @ Per Protocol IV.CONT TITRATE PRN Rx #:[id number] NS Inj 1,000 ML @ 100 mls/hr IV .CONT .Q10H GOLDY Rx#:[id number] Oral Other: # Voids # Bowel Movements Narrative: GENERAL: No acute distress. SKIN: Focused skin assessment warm and dry. HEENT: PERRLA, EOMI. CARDIOVASCULAR: Regular rate and rhythm. No obvious murmurs to auscultation. RESPIRATORY: No obvious rhonchi or wheezing. Clear to auscultation. Breath sounds equal bilaterally. GASTROINTESTINAL: Abdomen soft, non-tender, nondistended. BS normal. MUSCULOSKELETAL: Extremities without clubbing, cyanosis, or edema. NEUROLOGICAL: Awake, alert and oriented x4. No focal neurologic deficits. PSYCHIATRIC: Appropriate mood and affect. Insight and judgment normal. Results - Labs CBC & Chem 7: 09/25/18 05:38 09/25/18 05:38 Laboratory Results - last 24 hr 09/24/18 09/24/18 09/25/18 12:28 12:39 05:38 WBC 7.0 RBC 4.02 Hgb 11.8 Hct 34.3 L MCV 85.3 MCH 29.5 MCHC 34.5 RDW 14.4 Plt Count 236 MPV 8.1 Neut % (Auto) 43.8 Lymph % (Auto) 48.1 H Owen % (Auto) 5.4 Eos % (Auto) 2.2 Baso % (Auto) 0.5 Neut # (Auto) 3.1 Lymph # (Auto) 3.4 Owen # (Auto) 0.4 Eos # (Auto) 0.2 Baso # (Auto) 0.0 WBC Differential . Differential Comment Auto diff final APTT 43.5 H Sodium Potassium Chloride Carbon Dioxide Anion Gap BUN Creatinine Estimated GFR Random Glucose Calcium Total Bilirubin AST ALT Alkaline Phosphatase Troponin I Less than 0.02 L Total Protein Albumin 09/25/18 09/25/18 05:38 05:38 WBC RBC Hgb Hct MCV MCH MCHC RDW Plt Count MPV Neut % (Auto) Lymph % (Auto) Owen % (Auto) Eos % (Auto) Baso % (Auto) Neut # (Auto) Lymph # (Auto) Owen # (Auto) Eos # (Auto) Baso # (Auto) WBC Differential Differential Comment APTT 38.5 H Sodium 142 Potassium 4.0 Chloride 110 H Carbon Dioxide 27.2 Anion Gap 5 BUN 11 Creatinine 1.02 H Estimated GFR 68 L Random Glucose 202 H Calcium 7.7 L Total Bilirubin 0.5 AST 15 ALT 23 Alkaline Phosphatase 68 Troponin I Total Protein 6.6 D Albumin 3.0 L - Imaging Impressions Lower Extremity Ultrasound 09/24/18 00:00 CONCLUSION: Nonvisualization of the greater saphenous vein and portions of the lower legs bilaterally. Venous Doppler Study 09/24/18 00:00 CONCLUSION: Negative study. No venous thrombosis of either lower extremity. - Procedures None Assessment and Plan - Assessment (1) Unstable angina Code(s): I20.0 - Unstable angina Status: Acute (2) Renal insufficiency Code(s): N28.9 - Disorder of kidney and ureter, unspecified Status: Acute - Plan 1. Unstable Angina: c/o ongoing chest pain both w/ exertion and at rest, follows w/ Dr. Melissa, previous Cath 08/03/18 w/ small vessel disease, recommendation for medical management, pt notes minimal improvement w/ Raymundoexa. Seen by Her Primary human services program specialist doctor Melissa recommended for Cardiothoracic surgery evaluation Seen by Doctor Campos here to see the patient, recommended Bypass surgery to her [LAD], [ OM1] and RPDA (beyond the coronary stent) distributions. The OM 2 is very small and likely not bypassable. Additional the LAD has diffuse distal disease which is likely not be reachable by grafting. awaiting for resolution of Renal dysfunction and she was on Brilinta will be off this medicine for five days before surgery. recommended to obtain Carotid duplex imaging and Echocardiogram result from Doctor Melissa's office. continue Heparin and Nitroglycerine as per Specialists. 2. Renal Insufficiency: Acute on Chronic. Creatinine 1.02 improving. continue hydration. 3. DM II , Uncontrolled continue Lantus at 38 units daily and short lasting Insulin 15 units pre meal and sliding scale Medium dose. 4. Obesity strongly recommended diet and exercise as outpatient. DVT Prophylaxis: Heparin gtt Code Status: Full Code. Discussed Condition With: Patient, Nurse Mr. Vanegas and human services program specialist Doctor Chito Melissa. Discharge Planning: Once cleared by Specialists.
[2018-09-25] MEDS ORDERED: Insulin Detemir Inj 1,000 UNIT/10 ML Vial SQ SCH (09:00)
[2018-09-25] MEDS: Sod Chloride 0.9% Inj 1,000 ML IV.CONT SCH ×2 (10:03→20:56)
[2018-09-25] MEDS ORDERED: Dextrose 50% in Water 50 ML Vial IV.PUSH PRN (10:12)
[2018-09-25] MEDS ORDERED: Insulin Regular (For Infusion) 100 UNIT in Sodium Chlor 0.9% Inj 99 ML IV.CONT PRN (10:12)
--- NOTE | 2018-09-25 10:12 | P.CON ---
History of Present Illness Service: Cardiothoracic surgery Consult date: 09/25/18 Requesting Physician: Chito Melissa Reason for Consult: Coronary artery disease Primary Care Provider: UNKNOWN Chief Complaint: Chest pain History of Present Illness: 58-year-old female with a known history of coronary disease presenting with recurrent episodes of chest pain. She describes these as a substernal pressure sensation at rest and with minimal exertion. She has been seen for this in the past and has undergone a recent cardiac cath by Dr. Melissa on 08/09 demonstrating multivessel coronary disease with very small diabetic vessels. Because of the small caliber of her coronary arteries, it was opted to treat her with medical therapy. She was placed on Ranexa, however continues to have chest discomfort which brought her back to the emergency department on Wednesday. I am now being consulted for a surgical opinion regarding her coronary anatomy. At the present time she remains pain-free, hemodynamically stable with no evidence of ongoing ischemia on IV heparin and nitroglycerin. [facility] - History History Provided By: Patient - Tobacco History Second Hand Smoke Exposure: No Smoking Status: Never smoker - Alcohol History How Often Do You Have a Drink Containing Alcohol: Never - Substance Use History Substance History: No History of Abuse - Travel History Recent Travel in the [place] Within the Last 8 Weeks: No Recent Travel Out of the Country Within the Last 8 Weeks: No - Immunization History Tetanus Immunization: Unsure Medications and Allergies Active Medications: Active Medications Acetaminophen (Tylenol) 650 mg PO Q4H PRN PRN Reason: Temp > 100.4 Al Hydroxide/Mg Hydroxide (Milk Of [place] Liq) 30 ml PO Q12H PRN PRN Reason: Mild Constipation Aspirin (Ecotrin) 81 mg PO DAILY [facility] Last Admin: 09/25/18 08:09 Dose: 81 mg Atorvastatin Calcium (Lipitor) 20 mg PO DAILY [facility] Last Admin: 09/25/18 08:09 Dose: 20 mg Bisacodyl (Dulcolax Supp) 10 mg RECTAL DAILY PRN PRN Reason: SEVERE CONSITIPATION Heparin Sodium/Dextrose (Heparin/D5w 25,000 U/250 Ml) 25,000 unit in 250 mls @ 0 mls/hr IV.CONT TITRATE PRN; Protocol PRN Reason: Per Protocol Last Admin: 09/25/18 04:58 Dose: 900 units/hr, 9 mls/hr Nitroglycerin/Dextrose (Nitroglycerin Drip Premix) 50 mg in 250 mls @ 0 mls/hr IV.CONT TITRATE PRN; Protocol PRN Reason: Per Protocol Last Titration: 09/24/18 09:31 Dose: 5 mcg/min, 1.5 mls/hr Sodium Chloride (Ns Inj) 1,000 mls @ 100 mls/hr IV.CONT .Q10H [facility] Last Admin: 09/24/18 23:19 Dose: 100 mls/hr Insulin Aspart (Novolog Insulin Correctional Sugar Inj) 0 unit SQ 08,12,17,, 03 [facility]; Protocol Last Admin: 09/25/18 08:05 Dose: 2 unit Insulin Detemir (Levemir Inj) 20 unit SQ DAILY [facility] Isosorbide Mononitrate (Imdur) 30 mg PO DAILY [facility] Last Admin: 09/24/18 10:13 Dose: Not Given Lactulose (Lactulose Liq) 30 ml PO DAILY PRN PRN Reason: SEVERE CONSITIPATION Morphine Sulfate (Morphine Inj) 2 mg IV.PUSH Q4H PRN PRN Reason: PAIN 6-10 Ondansetron HCl (Zofran Inj) 4 mg IV.PUSH Q6H PRN PRN Reason: NAUSEA OR VOMITING Ranolazine (Ranexa) 500 mg PO Q12H [facility] Last Admin: 09/25/18 08:09 Dose: 500 mg Senna/Docusate Sodium (Jacqui-Colace) 1 tab PO BID [facility] Last Admin: 09/25/18 08:09 Dose: 1 tab Sennosides (Senokot) 17.2 mg PO Q12H PRN PRN Reason: Moderate Constipation Sertraline HCl (Zoloft) 50 mg PO DAILY [facility] Last Admin: 09/25/18 08:09 Dose: 50 mg Sodium Chloride (Ns Flush) 2 ml IV.FLUSH BID [facility] Last Admin: 09/24/18 21:14 Dose: Not Given Sodium Chloride (Ns Flush) 2 ml IV.FLUSH PRN PRN PRN Reason: FLUSH AFTER USING IV ACCESS Temazepam (Restoril) 7.5 mg PO HS [facility] Last Admin: 09/24/18 21:15 Dose: 7.5 mg Allergies Allergy/AdvReac Type Severity Reaction Status Date / Time metoprolol Allergy Severe HALLUCINATI Verified 09/23/18 22:25 ONS famotidine Allergy Unknown RASH Verified 09/23/18 22:25 lisinopril Allergy Unknown Itching Verified 09/23/18 22:25 insulin detemir AdvReac Unknown Diarrhea Verified 09/23/18 22:25 Home Medications Medication Instructions Recorded Confirmed Type aspirin [Aspir-81] 81 mg PO DAILY 08/03/18 09/24/18 History atorvastatin 20 mg PO DAILY 08/03/18 09/24/18 History insulin glargine [Lantus U-100 25 unit SUB-Q DAILY 08/03/18 09/24/18 History Insulin] insulin lispro [Humalog U-100 45 unit SUB-Q DAILY 08/03/18 09/24/18 History Insulin] isosorbide mononitrate 30 mg PO QAM 08/03/18 09/24/18 History methocarbamol 500 mg PO QID 08/03/18 09/24/18 History nitroglycerin 0.3 mg SUBLINGUAL Q5-15M PRN 08/03/18 09/24/18 History sertraline 50 mg PO DAILY 08/03/18 09/24/18 History temazepam 7.5 mg PO HS 08/03/18 09/24/18 History ticagrelor [Brilinta] 90 mg PO BID 08/03/18 09/24/18 History Physical Exam Vital signs: Vital Signs 09/24/18 11:05 09/24/18 16:00 09/24/18 19:15 Temperature 98.8 F Pulse Rate 92 H 67 79 Respiratory Rate 17 18 Blood Pressure 125/71 155/85 H Pulse Oximetry 98 99 09/24/18 20:00 09/24/18 21:00 09/24/18 22:00 Temperature 97.6 F Pulse Rate 78 74 74 Respiratory Rate 18 Blood Pressure 123/78 Pulse Oximetry 98 09/24/18 23:00 09/24/18 23:11 09/25/18 00:47 Temperature 98.2 F Pulse Rate 83 75 92 H Respiratory Rate 18 Blood Pressure 128/77 Pulse Oximetry 97 09/25/18 01:00 EST 09/25/18 02:00 09/25/18 03:00 Temperature Pulse Rate 70 76 74 Respiratory Rate Blood Pressure Pulse Oximetry 09/25/18 03:51 09/25/18 04:00 09/25/18 05:00 Temperature 98 F Pulse Rate 81 98 H 70 Respiratory Rate 18 Blood Pressure 127/74 Pulse Oximetry 96 09/25/18 06:00 09/25/18 08:00 Temperature 98.6 F Pulse Rate 70 74 Respiratory Rate 16 Blood Pressure 124/74 Pulse Oximetry 96 Intake & Output 09/24/18 09/25/18 09/25/18 19:59 06:59 18:59 Intake Total Balance Weight Intake: IV Heparin/D5W 25,000 U/250 mL 25, 000 unit In 250 ml @ Per Protocol IV.CONT TITRATE PRN Rx #:[id number] NS Inj 1,000 ML @ 100 mls/hr IV .CONT .Q10H GOLDY Rx#:[id number] Oral Other: # Voids # Bowel Movements - Constitutional no acute distress - Routine HEENT Exam Head: Present: normocephalic, atraumatic Eye: Present: EOMI, PERRL ENT: Present: mucous membranes moist - Routine Neck Exam Present: supple, full ROM. Absent: JVD, carotid bruit, lymphadenopathy - Routine Respiratory Exam Present: CTA bilaterally. Absent: accessory muscle use - Routine Cardiovascular Exam Present: RRR, S1, S2. Absent: murmur, gallop, rubs - Routine Abdominal Exam Present: soft, normoactive bowel sounds. Absent: tenderness, distended, rebound , guarding - Routine Extremities Exam Present: full ROM, pulses intact, normal capillary refill. Absent: cyanosis, clubbing, edema - Routine Skin Exam Present: intact. Absent: cyanosis, erythema - Routine Neurological Exam Present: alert, oriented X3, CN II-XII intact, normal reflexes. Absent: sensory deficit, motor deficit - Routine Psychiatric Exam Present: normal affect, normal thought process Assessment and Plan - Assessment (1) CAD (coronary artery disease), [place] coronary artery Code(s): I25.10 - Atherosclerotic heart disease of [place] coronary artery without angina pectoris Status: Acute (2) Diabetes mellitus Code(s): E11.9 - Type 2 diabetes mellitus without complications Status: Acute (3) Unstable angina Code(s): I20.0 - Unstable angina Status: Acute (4) Renal insufficiency Code(s): N28.9 - Disorder of kidney and ureter, unspecified Status: Acute - Plan Patient seen and examined, chart and angiograms reviewed and the findings discussed in detail with the patient and her family. Therapeutic options available including CABG was offered. I agree with [Shin] that she will maximally benefit from bypass to her [LAD], [OM1] and RPDA (beyond the coronary stent) distributions. The OM 2 is very small and likely not bypassable. Additional the LAD has diffuse distal disease which is likely not be reachable by grafting. The risks, complications including but not limited to bleeding, infection, stroke, myocardial injury and , and benefits of the surgical procedure were discussed in details and all questions answered. She understands the provided information and agrees to proceed with the planned operation. We will plan on proceeding with the surgical procedure as describe above on following resolution of her renal insufficiency. Additionally she was on Brilinta until yesterday and, therefore, will require 5 days prior to surgical intervention. We will obtain platelet function assay this week to confirm adequate platelet function. In the meantime, we will obtain carotid duplex imaging and echo results from Dr. Melissa's office. Thank you for allowing me to participate in the care of this patient.
[2018-09-25] MEDS ORDERED: Sodium Chlor 0.9% Inj 77.5 ML, Papaverine Inj 60 MG, Nitroglycerin Inj 100 MCG, dilTIAZ... IRRIGATION SCH ×3 (10:15)
[2018-09-25] MEDS ORDERED: Chlorhexidine 4% Topical 120 APPLIC/120 ML Bottle TOPICAL SCH (10:15)
[2018-09-25] MEDS ORDERED: Sodium Chloride 0.9% Irr Bot 500 ML, ceFAZolin Inj 500 MG IRRIGATION SCH ×2 (10:15)
[2018-09-25] MEDS ORDERED: ceFAZolin Inj 2,000 MG in Sodium Chlor 0.9% Inj 80 ML IV.SIG SCH (11:00)
[2018-09-25] MEDS ORDERED: Insulin Glargine Inj 1,000 UNITS/10 ML Vial SQ SCH (11:00)
[2018-09-25] MEDS: Insulin Glargine Inj 1,000 UNITS/10 ML Vial SQ SCH (11:06)
[2018-09-25] MEDS: Sodium Chloride 0.9% 2 ML Flush BID IV.FLUSH SCH ×2 (11:19→20:50)
[2018-09-25] MEDS ORDERED: Insulin NovoLOG Aspart Correctional Sugar Inj SQ SCH (12:00)
[2018-09-25 13:05] LABS: Hemoglobin A1c 8.6 % (4.3-6.0)
--- NOTE | 2018-09-25 15:07 | XR ---
EXAM DATE: 09/25/2018 2:54 PM EST AGE/SEX: 58 years / Female INDICATIONS: Evaluate for pneumonia, pneumothorax, or communicable disease. CLINICAL DATA: This is the patient's initial encounter. Patient reports that signs and symptoms have been present for 1 day and indicates a pain score of 0/10. MEDICAL/SURGICAL HISTORY: . Cardiovascular disease. Diabetes mellitus type 2. Hypercholesterole jimmy. Hysterectomy. COMPARISON: [facility] – [place], CHEST 1V SINGLE AP, 09/23/2018. . FINDINGS: PA and lateral views of the chest demonstrate the lungs to be symmetrically aerated without evidence of mass, infiltrate or effusion. The cardiomediastinal contours are unremarkable. Osseous structures are intact. CONCLUSION: No evidence of acute cardiopulmonary process. Electronically signed by: Aflred Alonso MD 09/25/2018 3:05 PM EST
--- NOTE | 2018-09-25 16:00 | P.PNCA ---
Subjective Interval history: No events overnight No chest pain, on heparin and nitro drips Medications and Allergies Active Medications: Active Medications Acetaminophen (Tylenol) 650 mg PO Q4H PRN PRN Reason: Temp > 100.4 Al Hydroxide/Mg Hydroxide (Milk Of [place] Liq) 30 ml PO Q12H PRN PRN Reason: Mild Constipation Aspirin (Ecotrin) 81 mg PO DAILY [facility] Last Admin: 09/25/18 08:09 Dose: 81 mg Atorvastatin Calcium (Lipitor) 20 mg PO HS [facility] Bisacodyl (Dulcolax Supp) 10 mg RECTAL DAILY PRN PRN Reason: SEVERE CONSITIPATION Chlorhexidine Gluconate (Hibiclens 4% Topical) 1 applicatio TOPICAL [employer] [facility] Stop: 10/01/18 10:12 Sodium Chloride 77.5 ml/Papaverine HCl 60 mg/Nitroglycerin 100 mcg/Diltiazem HCl 100 mg 0 ml IRRIGATION [employer] [facility] Stop: 10/01/18 10:12 Sodium Chloride 500 ml/ (Cefazolin Sodium 500 mg) 0 ml IRRIGATION [employer] [facility] Stop: 10/01/18 10:14 Dextrose (D50w Vial) 50 ml IV.PUSH UNSCH PRN PRN Reason: PER HYPOGLYCEMIA PROTOCOL Heparin Sodium/Dextrose (Heparin/D5w 25,000 U/250 Ml) 25,000 unit in 250 mls @ 0 mls/hr IV.CONT TITRATE PRN; Protocol PRN Reason: Per Protocol Last Admin: 09/25/18 04:58 Dose: 900 units/hr, 9 mls/hr Nitroglycerin/Dextrose (Nitroglycerin Drip Premix) 50 mg in 250 mls @ 0 mls/hr IV.CONT TITRATE PRN; Protocol PRN Reason: Per Protocol Last Titration: 09/24/18 09:31 Dose: 5 mcg/min, 1.5 mls/hr Sodium Chloride (Ns Inj) 1,000 mls @ 100 mls/hr IV.CONT .Q10H [facility] Last Admin: 09/25/18 10:03 Dose: 100 mls/hr Cefazolin Sodium 2,000 mg/ (Sodium Chloride) 100 mls @ 200 mls/hr IV.SIG [employer] [facility] Stop: 10/01/18 10:15 Insulin Human Regular 100 unit (/ Sodium Chloride) 100 mls @ 3 mls/hr IV.CONT TITRATE PRN; Protocol PRN Reason: See Protocol Insulin Aspart (Novolog Insulin Correctional Sugar Inj) 20 unit SQ TIDAC [facility]; Protocol Insulin Aspart (Novolog Insulin Correctional Sugar Inj) 0 unit SQ 08,12,17,21, 03 [facility]; Protocol Insulin Glargine (Lantus Inj) 38 units SQ [facility] Isosorbide Mononitrate (Imdur) 30 mg PO DAILY [facility] Last Admin: 09/24/18 10:13 Dose: Not Given Lactulose (Lactulose Liq) 30 ml PO DAILY PRN PRN Reason: SEVERE CONSITIPATION Metoprolol Tartrate (Lopressor) 12.5 mg PO [employer] [facility] Stop: 10/01/18 10:15 Morphine Sulfate (Morphine Inj) 2 mg IV.PUSH Q4H PRN PRN Reason: PAIN 6-10 Mupirocin (Bactroban 2% Nasal Oint) 1 applicatio EACH NARE BID [facility] Stop: 09/29/18 10:15 Ondansetron HCl (Zofran Inj) 4 mg IV.PUSH Q6H PRN PRN Reason: NAUSEA OR VOMITING Ranolazine (Ranexa) 500 mg PO Q12H [facility] Last Admin: 09/25/18 08:09 Dose: 500 mg Senna/Docusate Sodium (Jacqui-Colace) 1 tab PO BID [facility] Last Admin: 09/25/18 08:09 Dose: 1 tab Sennosides (Senokot) 17.2 mg PO Q12H PRN PRN Reason: Moderate Constipation Sertraline HCl (Zoloft) 50 mg PO DAILY [facility] Last Admin: 09/25/18 08:09 Dose: 50 mg Sodium Chloride (Ns Flush) 2 ml IV.FLUSH BID [facility] Last Admin: 09/25/18 11:19 Dose: 2 ml Sodium Chloride (Ns Flush) 2 ml IV.FLUSH PRN PRN PRN Reason: FLUSH AFTER USING IV ACCESS Temazepam (Restoril) 7.5 mg PO [facility] Last Admin: 09/24/18 21:15 Dose: 7.5 mg Allergies Allergy/AdvReac Type Severity Reaction Status Date / Time metoprolol Allergy Severe HALLUCINATI Verified 09/23/18 22:25 ONS famotidine Allergy Unknown RASH Verified 09/23/18 22:25 lisinopril Allergy Unknown Itching Verified 09/23/18 22:25 insulin detemir AdvReac Unknown Diarrhea Verified 09/23/18 22:25 Home Medications Medication Instructions Recorded Confirmed Type aspirin [Aspir-81] 81 mg PO DAILY 08/03/18 09/24/18 History atorvastatin 20 mg PO DAILY 08/03/18 09/24/18 History insulin glargine [Lantus U-100 25 unit SUB-Q DAILY 08/03/18 09/24/18 History Insulin] insulin lispro [Humalog U-100 45 unit SUB-Q DAILY 08/03/18 09/24/18 History Insulin] isosorbide mononitrate 30 mg PO QAM 08/03/18 09/24/18 History methocarbamol 500 mg PO QID 08/03/18 09/24/18 History nitroglycerin 0.3 mg SUBLINGUAL Q5-15M PRN 08/03/18 09/24/18 History sertraline 50 mg PO DAILY 08/03/18 09/24/18 History temazepam 7.5 mg PO HS 08/03/18 09/24/18 History ticagrelor [Brilinta] 90 mg PO BID 08/03/18 09/24/18 History Physical Exam Vital signs: Vital Signs 09/24/18 19:15 09/24/18 20:00 09/24/18 21:00 Temperature 97.6 F Pulse Rate 79 78 74 Respiratory Rate 18 Blood Pressure 123/78 Pulse Oximetry 98 09/24/18 22:00 09/24/18 23:00 09/24/18 23:11 Temperature 98.2 F Pulse Rate 74 83 75 Respiratory Rate 18 Blood Pressure 128/77 Pulse Oximetry 97 09/25/18 00:47 09/25/18 01:00 EST 09/25/18 02:00 Temperature Pulse Rate 92 H 70 76 Respiratory Rate Blood Pressure Pulse Oximetry 09/25/18 03:00 09/25/18 03:51 09/25/18 04:00 Temperature 98 F Pulse Rate 74 81 98 H Respiratory Rate 18 Blood Pressure 127/74 Pulse Oximetry 96 09/25/18 05:00 09/25/18 06:00 09/25/18 08:00 Temperature 98.6 F Pulse Rate 70 70 74 Respiratory Rate 16 Blood Pressure 124/74 Pulse Oximetry 96 09/25/18 09:00 09/25/18 10:00 09/25/18 10:46 Temperature Pulse Rate 74 74 Respiratory Rate Blood Pressure Pulse Oximetry 96 09/25/18 11:00 09/25/18 12:00 09/25/18 13:00 Temperature 98.6 F Pulse Rate 72 78 76 Respiratory Rate 16 Blood Pressure 124/74 Pulse Oximetry 96 09/25/18 14:00 09/25/18 15:00 Temperature Pulse Rate 72 74 Respiratory Rate Blood Pressure Pulse Oximetry Intake & Output 09/24/18 09/25/18 09/25/18 19:59 06:59 18:59 Intake Total 1000 / 1000 Balance 1000 / 1000 Weight Intake: IV 1000 / 1000 Heparin/D5W 25,000 U/250 mL 25, 000 unit In 250 ml @ Per Protocol IV.CONT TITRATE PRN Rx #:[id number] NS Inj 1,000 ML @ 100 mls/hr IV 1000 / 1000 .CONT .Q10H [facility] Rx#:[id number] Oral Other: # Voids # Bowel Movements Narrative: GENERAL: No acute distress. SKIN: Focused skin assessment warm and dry. HEENT: PERRLA, EOMI. CARDIOVASCULAR: Regular rate and rhythm. No obvious murmurs to auscultation. RESPIRATORY: No obvious rhonchi or wheezing. Clear to auscultation. Breath sounds equal bilaterally. GASTROINTESTINAL: Abdomen soft, non-tender, nondistended. BS normal. MUSCULOSKELETAL: Extremities without clubbing, cyanosis, or edema. NEUROLOGICAL: Awake, alert and oriented x4. No focal neurologic deficits. PSYCHIATRIC: Appropriate mood and affect. Insight and judgment normal. Results 09/25/18 05:38 09/25/18 05:38 Cardiac Enzymes 09/23/18 09/24/18 09/24/18 Range/Units 00:01 06:08 12:39 AST 30 (15-37) U/L CK-MB (CK-2) 1.1 (0.5-3.6) ng/mL Troponin I Less than 0.02 L Less than 0.02 L Less than 0.02 L (0.02-0.05) ng/mL 09/25/18 Range/Units 05:38 AST 15 (15-37) U/L CK-MB (CK-2) (0.5-3.6) ng/mL Troponin I (0.02-0.05) ng/mL Coagulation 09/23/18 09/24/18 09/24/18 Range/Units 00:01 06:08 12:28 PT 11.2 (9.8-11.6) sec APTT 25.0 42.2 H D 43.5 H (23.4-31.7) sec 09/25/18 Range/Units 05:38 PT (9.8-11.6) sec APTT 38.5 H (23.4-31.7) sec CBC 09/23/18 09/25/18 Range/Units 00:01 05:38 WBC 9.9 7.0 (4.0-11.0) th/mm3 RBC 4.42 4.02 (4.00-5.30) mil/mm3 Hgb 13.0 11.8 (11.6-15.3) gm/dL Hct 37.7 34.3 L (35.0-46.0) % Plt Count 293 236 (150-450) th/mm3 Neut # (Auto) 4.8 3.1 (1.8-7.7) th/mm3 Lymph # (Auto) 4.4 3.4 (1.0-4.8) th/mm3 [place] # (Auto) 0.6 0.4 (0.0-0.9) th/mm3 Eos # (Auto) 0.1 0.2 (0.0-0.4) th/mm3 Baso # (Auto) 0.0 0.0 (0.0-0.2) th/mm3 Comprehensive Metabolic Panel 09/23/18 09/25/18 Range/Units 00:01 05:38 Sodium 141 142 (136-145) meq/L Potassium 4.2 4.0 (3.5-5.1) meq/L Chloride 105 110 H (98-107) meq/L Carbon Dioxide 29.3 27.2 (21.0-32.0) meq/L BUN 17 11 (7-18) mg/dL Creatinine 1.23 H 1.02 H (0.50-1.00) mg/dL Calcium 8.6 7.7 L (8.5-10.1) mg/dL AST 30 15 (15-37) U/L ALT 28 23 (10-53) U/L Alkaline Phosphatase 72 68 (45-117) U/L Total Protein 7.5 6.6 D (6.4-8.2) g/dL Albumin 3.5 3.0 L (3.4-5.0) g/dL Intake and Output 09/25/18 09/25/18 09/25/18 06:59 14:59 22:59 Intake Total 1000 / 1000 Balance 1000 / 1000 Intake: IV 1000 / 1000 Heparin/D5W 25,000 U/250 mL 25, 000 unit In 250 ml @ Per Protocol IV.CONT TITRATE PRN Rx #:[id number] NS Inj 1,000 ML @ 100 mls/hr IV 1000 / 1000 .CONT .Q10H [facility] Rx#:[id number] Oral Other: # Voids Weight - Imaging and Cardiology Imaging: Impressions Chest X-Ray 09/23/18 22:38 CONCLUSION: Negative examination. Lower Extremity Ultrasound 09/24/18 00:00 CONCLUSION: Nonvisualization of the greater saphenous vein and portions of the lower legs bilaterally. Venous Doppler Study 09/24/18 00:00 CONCLUSION: Negative study. No venous thrombosis of either lower extremity. Chest X-Ray 09/25/18 10:12 CONCLUSION: No evidence of acute cardiopulmonary process. Assessment and Plan - Assessment (1) Unstable angina Code(s): I20.0 - Unstable angina Status: Acute (2) CAD (coronary artery disease), [place] coronary artery Code(s): I25.10 - Atherosclerotic heart disease of [place] coronary artery without angina pectoris Status: Acute (3) Diabetes mellitus Code(s): E11.9 - Type 2 diabetes mellitus without complications Status: Acute - Plan 1) [place]/CAD Currently on heparin and nitro drips Discussed with Dr. Campos, plan on CABG mid week if possible 2) Echo from office with normal function, no valvulopathies Report placed on chart 3) Carotid doppler from office showing no disease Report placed on chart 4) DM 5) Will hold Brilinta for planned surgery Con't on heparin drip Last dose 09/23 in the morning
[2018-09-25] MEDS: Mupirocin 2% Nasal Oint Topical Syringe EACH NARE SCH (20:48)
[2018-09-25 21:20] LABS: Bacteria,Urine Rare /hpf; Bilirubin,Urine Negative (Negative); Clarity,Urine Clear (Clear); Color,Urine Colorless (Yellw/Straw); Glucose,Urine (UA) Negative (Negative); Leukocyte Esterase,Urine Negative (Negative); Mucus,Urine Few /lpf (Occasional); Nitrite,Urine Negative (Negative); Specific Gravity,Urine 1.003 (1.002-1.035); Squamous Epithelial Cell,Urine <1 /hpf (0-5)
--- NOTE | 2018-09-26 00:18 | ECG ---
Date Performed: 09/23/2018 Time Performed: 22:38:29 PTAGE: 58 years EKG: Sinus rhythm INFERIOR MYOCARDIAL INFARCTION ABNORMAL ECG PREVIOUS TRACING : 08/03/2018 12.13 Since the previous tracing, no significant change noted DOCTOR: Chito Melissa Interpretating Date/Time 09/26/2018 00:16:32
[2018-09-26] MEDS: Insulin NovoLOG Aspart Correctional Sugar Inj SQ SCH ×8 (07:29→23:56)
[2018-09-26] MEDS: Sod Chloride 0.9% Inj 1,000 ML IV.CONT SCH (07:33)
[2018-09-26] MEDS: Heparin Drip 25,000 UNIT/250 ML BAG IV.CONT PRN (07:41)
[2018-09-26] MEDS: Sertraline 50 MG Tablet PO SCH (08:29)
[2018-09-26] MEDS: Ranolazine 500 MG 12HR ER Tablet PO SCH ×2 (08:29→20:55)
[2018-09-26] MEDS: Mupirocin 2% Nasal Oint Topical Syringe EACH NARE SCH ×2 (08:29→20:56)
[2018-09-26] MEDS: Sodium Chloride 0.9% 2 ML Flush BID IV.FLUSH SCH ×2 (08:29→20:56)
[2018-09-26] MEDS: Senna/Docusate Sodium 8.6/50 MG Tablet PO SCH ×2 (08:30→20:55)
--- NOTE | 2018-09-26 10:49 | P.PNCV ---
- Note Subjective/Hospital Course: sts data discussed with pt RISK SCORES About the STS Risk Calculator Procedure: CAB Only Risk of Mortality: 0.745% Morbidity or Mortality: 8.994% Long Length of Stay: 3.108% Short Length of Stay: 56.144% Permanent Stroke: 0.567% Prolonged Ventilation: 6.252% DSW Infection: 0.387% Renal Failure: 1.922% Reoperation: 3.349% 58-year-old female with a significant history of coronary artery disease the presented to the ED for evaluation of chest pain. Patient has had chest pain for about a week. Per patient is progressively getting worse. She denies any urinary or bowel movement issues. She states that the pain gets worse with stress and movement. She took 4 nitro with minimal improvement of the symptoms which was what prompted her evaluation. Patient was admitted recently in July for evaluation of similar. She had another heart cath that showed . Significant multivessel disease, although overall small vessels. She did not had stenting at that time and they thought that she could have increase of her medications and may be this will help with her symptoms but she continues to have symptoms. PMH: CAD/ HI/ Stents/ HTN, HLP, DM insulin dependent EF 58% 09/26 pt on heparin gtt, 3 mcq of NTG will resume imdur and dc NTG, pt pain free eval PRU in am for timing of surgery off Brilinta since Wednesday Objective: Vital Signs - 24 hr 09/25/18 10:46 09/25/18 11:00 09/25/18 12:00 Temperature 98.6 F Pulse Rate 72 78 Respiratory Rate 16 Blood Pressure 124/74 Pulse Oximetry 96 96 09/25/18 13:00 09/25/18 14:00 09/25/18 15:00 Temperature Pulse Rate 76 72 74 Respiratory Rate Blood Pressure Pulse Oximetry 09/25/18 16:00 09/25/18 17:52 09/25/18 19:00 Temperature 98 F Pulse Rate 68 75 88 Respiratory Rate 18 Blood Pressure 155/77 H Pulse Oximetry 98 09/25/18 20:00 09/25/18 21:00 09/25/18 22:00 Temperature 98.3 F Pulse Rate 80 78 70 Respiratory Rate 16 Blood Pressure 145/86 H Pulse Oximetry 98 09/25/18 23:00 09/26/18 00:00 09/26/18 01:00 Temperature 97.8 F Pulse Rate 89 70 70 Respiratory Rate 16 Blood Pressure 150/91 H Pulse Oximetry 99 09/26/18 02:00 09/26/18 03:00 09/26/18 03:55 Temperature 97.8 F Pulse Rate 74 67 81 Respiratory Rate 18 Blood Pressure 126/68 Pulse Oximetry 94 L 09/26/18 04:00 09/26/18 05:00 09/26/18 06:00 Temperature Pulse Rate 68 68 68 Respiratory Rate Blood Pressure Pulse Oximetry 09/26/18 07:00 09/26/18 08:00 Temperature 98.6 F Pulse Rate 75 69 Respiratory Rate 18 Blood Pressure 133/75 Pulse Oximetry 98 GENERAL: SKIN: Warm and dry. HEAD: Normocephalic. EYES: No scleral icterus. No injection or drainage. NECK: Supple, trachea midline. No JVD or lymphadenopathy. CARDIOVASCULAR: Regular rate and rhythm without murmurs, gallops, or rubs. RESPIRATORY: Breath sounds equal bilaterally. No accessory muscle use. GASTROINTESTINAL: Abdomen soft, non-tender, nondistended. MUSCULOSKELETAL: No cyanosis, or edema. BACK: Nontender without obvious deformity. No CVA tenderness. Labs: Laboratory Results - last 12 hr 09/25/18 09/26/18 09/26/18 20:40 01:24 08:10 APTT 42.7 H 46.0 H Nasal Screen MRSA (PCR) Mrsa detected Result Diagrams: 09/25/18 05:38 09/25/18 05:38 Cardiovascular: NSR - Plan (1) CAD (coronary artery disease), [place] coronary artery Plan: ASA, statin Heparin gtt long acting nitrates (2) Diabetes mellitus Plan: diabetic diet insulin sliding scale HGB A1C 8.6 (3) Unstable angina Plan: pain free at this time (4) Renal insufficiency Plan: indices improving
[2018-09-26] MEDS: Acetaminophen 325 MG Tablet PO PRN (11:29)
--- NOTE | 2018-09-26 16:05 | P.PN ---
Subjective Interval history: This is a pleasant 58 y/o Female with CAD and DM II, who came to ER with Chest pain for one week, s/p Cath 08/03/18 w/ significant small vessel disease, not amenable to intervention and recommendation for medical management, on Imdur and Ranexa, Discussed in her bedroom with patient and nurse Joe Guilherme, she has uncontrolled blood sugars and adjusted her Home Insulin she states uses Lantus 38 units at night started now and continue short acting Insulin premeal start with 15 units, and continue sliding scale, continue ADA diet, discussed at this time with her Primary news specialist Doctor Melissa, also Doctor Beth here to see the patient, recommended Bypass surgery to her [LAD], [OM1] and RPDA (beyond the coronary stent) distributions. The OM 2 is very small and likely not bypassable. Additional the LAD has diffuse distal disease which is likely not be reachable by grafting. awaiting for resolution of Renal dysfunction and she was on Brilinta will be off this medicine for five days before surgery. recommended to obtain Carotid duplex imaging and Echocardiogram result from Doctor Melissa's office. 09/26: Stable in her office improving blood sugar checks below 180 mg/dl. no nausea, vomit or diarrhea, discussed with nurse Mr. Watkinsan Physical Exam Vital signs: Vital Signs 09/25/18 17:52 09/25/18 19:00 09/25/18 20:00 Temperature 98.3 F Pulse Rate 75 88 80 Respiratory Rate 16 Blood Pressure 145/86 H Pulse Oximetry 98 09/25/18 21:00 09/25/18 22:00 09/25/18 23:00 Temperature Pulse Rate 78 70 89 Respiratory Rate Blood Pressure Pulse Oximetry 09/26/18 00:00 09/26/18 01:00 09/26/18 02:00 Temperature 97.8 F Pulse Rate 70 70 74 Respiratory Rate 16 Blood Pressure 150/91 H Pulse Oximetry 99 09/26/18 03:00 09/26/18 03:55 09/26/18 04:00 Temperature 97.8 F Pulse Rate 67 81 68 Respiratory Rate 18 Blood Pressure 126/68 Pulse Oximetry 94 L 09/26/18 05:00 09/26/18 06:00 09/26/18 07:00 Temperature Pulse Rate 68 68 75 Respiratory Rate Blood Pressure Pulse Oximetry 09/26/18 08:00 09/26/18 09:00 09/26/18 10:00 Temperature 98.6 F Pulse Rate 82 70 74 Respiratory Rate 18 Blood Pressure 133/75 Pulse Oximetry 98 09/26/18 11:00 09/26/18 12:00 09/26/18 13:00 Temperature 97.7 F Pulse Rate 66 62 78 Respiratory Rate 18 Blood Pressure 147/79 H Pulse Oximetry 98 09/26/18 14:00 09/26/18 15:00 Temperature Pulse Rate 70 71 Respiratory Rate Blood Pressure Pulse Oximetry Intake & Output 09/25/18 09/26/18 09/26/18 18:59 06:59 18:59 Intake Total 1740 / 1740 1240 / 1240 250 / 250 Output Total 1100 / 1100 2800 / 2800 Balance 640 / 640 -1560 / -1560 250 / 250 Weight 75 kg Intake: IV 1000 / 1000 1000 / 1000 250 / 250 Heparin/D5W 25,000 U/250 mL 25, 250 / 250 000 unit In 250 ml @ Per Protocol IV.CONT TITRATE PRN Rx #:[id number] NS Inj 1,000 ML @ 100 mls/hr IV 1000 / 1000 1000 / 1000 .CONT .Q10H [facility] Rx#:[id number] Oral 740 / 740 240 / 240 Output: Urine 1100 / 1100 2800 / 2800 Other: Date of Last Bowel Movement 09/25/18 09/25/18 # Bowel Movements 3 Narrative: GENERAL: No acute distress. SKIN: Focused skin assessment warm and dry. HEENT: PERRLA, EOMI. CARDIOVASCULAR: Regular rate and rhythm. No obvious murmurs to auscultation. RESPIRATORY: No obvious rhonchi or wheezing. Clear to auscultation. Breath sounds equal bilaterally. GASTROINTESTINAL: Abdomen soft, non-tender, nondistended. BS normal. MUSCULOSKELETAL: Extremities without clubbing, cyanosis, or edema. NEUROLOGICAL: Awake, alert and oriented x4. No focal neurologic deficits. PSYCHIATRIC: Appropriate mood and affect. Insight and judgment normal. Results - Labs CBC & Chem 7: 09/25/18 05:38 09/25/18 05:38 Laboratory Results - last 24 hr 09/25/18 09/25/18 09/26/18 20:40 20:45 01:24 APTT 42.7 H Urine Color Colorless Urine Clarity Clear Urine pH 6.0 Ur Specific [place] 1.003 Urine Protein Negative Urine Glucose (UA) Negative Urine Ketones Negative Urine Occult Blood Negative Urine Nitrate Negative Urine Bilirubin Negative Urine Urobilinogen Less than 2 Ur Leukocyte Esterase Negative Urine RBC Less than 1 Urine WBC Less than 1 Ur Squamous Epith Cells <1 Urine Bacteria Rare H Urine Mucus Few H Micro UA Comment Culture not ind Ur Microscopic Review Not Reportable Urine Culture Comments Culture not ind Nasal Screen MRSA (PCR) Mrsa detected 09/26/18 08:10 APTT 46.0 H Urine Color Urine Clarity Urine pH Ur Specific [place] Urine Protein Urine Glucose (UA) Urine Ketones Urine Occult Blood Urine Nitrate Urine Bilirubin Urine Urobilinogen Ur Leukocyte Esterase Urine RBC Urine WBC Ur Squamous Epith Cells Urine Bacteria Urine Mucus Micro UA Comment Ur Microscopic Review Urine Culture Comments Nasal Screen MRSA (PCR) - Imaging Lower Extremity Ultrasound 09/24/18 00:00 CONCLUSION: Nonvisualization of the greater saphenous vein and portions of the lower legs bilaterally. Venous Doppler Study 09/24/18 00:00 CONCLUSION: Negative study. No venous thrombosis of either lower extremity. Chest X-Ray 09/25/18 10:12 CONCLUSION: No evidence of acute cardiopulmonary process. - Procedures None Assessment and Plan - Assessment (1) Unstable angina Code(s): I20.0 - Unstable angina Status: Acute (2) Renal insufficiency Code(s): N28.9 - Disorder of kidney and ureter, unspecified Status: Acute - Plan 1. Unstable Angina: c/o ongoing chest pain both w/ exertion and at rest, follows w/ Dr. Melissa, previous Cath 08/03/18 w/ small vessel disease, recommendation for medical management, pt notes minimal improvement w/ Blayne. Seen by Her Primary news specialist doctor Melissa recommended for Cardiothoracic surgery evaluation Seen by Doctor Campos here to see the patient, recommended Bypass surgery to her [LAD], [ OM1] and RPDA (beyond the coronary stent) distributions. The OM 2 is very small and likely not bypassable. Additional the LAD has diffuse distal disease which is likely not be reachable by grafting. awaiting for resolution of Renal dysfunction and she was on Brilinta will be off this medicine for five days before surgery. recommended to obtain Carotid duplex imaging and Echocardiogram result from Doctor Melissa's office. continue Heparin and Nitroglycerine as per Specialists. 2. Renal Insufficiency: Acute on Chronic. Creatinine 1.02 improving. continue hydration. 3. DM II , Better control today continue present care Lantus 38 units in am, pre meal regular insulin 20 units and high sliding scale. hemoglobin A1C 8.6 4. Obesity strongly recommended diet and exercise as outpatient. DVT Prophylaxis: Heparin gtt Code Status: Full Code. Discussed Condition With: Patient and nurse Mr. Vallecillo. Discharge Planning: Once cleared by Specialists.
[2018-09-26] MEDS: Insulin Glargine Inj 1,000 UNITS/10 ML Vial SQ SCH ×2 (21:05→23:56)
--- NOTE | 2018-09-26 23:03 | P.PNCA ---
Subjective Interval history: No events overnight Mild headache from nitro drip Medications and Allergies Active Medications: Active Medications Acetaminophen (Tylenol) 650 mg PO Q4H PRN PRN Reason: Temp > 100.4 Last Admin: 09/26/18 11:29 Dose: 650 mg Al Hydroxide/Mg Hydroxide (Milk Of [place] Liq) 30 ml PO Q12H PRN PRN Reason: Mild Constipation Aspirin (Ecotrin) 81 mg PO DAILY [facility] Last Admin: 09/26/18 08:29 Dose: 81 mg Atorvastatin Calcium (Lipitor) 20 mg PO HS [facility] Last Admin: 09/26/18 20:56 Dose: 20 mg Bisacodyl (Dulcolax Supp) 10 mg RECTAL DAILY PRN PRN Reason: SEVERE CONSITIPATION Chlorhexidine Gluconate (Hibiclens 4% Topical) 1 applicatio TOPICAL ENDS BREAKAGE CLERK [facility] Stop: 10/01/18 10:12 Sodium Chloride 77.5 ml/Papaverine HCl 60 mg/Nitroglycerin 100 mcg/Diltiazem HCl 100 mg 0 ml IRRIGATION ENDS BREAKAGE CLERK [facility] Stop: 10/01/18 10:12 Sodium Chloride 500 ml/ (Cefazolin Sodium 500 mg) 0 ml IRRIGATION EN[employer] BREAKAGE CLERK [facility] Stop: 10/01/18 10:14 Dextrose (D50w Vial) 50 ml IV.PUSH UNSCH PRN PRN Reason: PER HYPOGLYCEMIA PROTOCOL Heparin Sodium/Dextrose (Heparin/D5w 25,000 U/250 Ml) 25,000 unit in 250 mls @ 0 mls/hr IV.CONT TITRATE PRN; Protocol PRN Reason: Per Protocol Last Admin: 09/26/18 07:41 Dose: 1,000 units/hr, 10 mls/hr Nitroglycerin/Dextrose (Nitroglycerin Drip Premix) 50 mg in 250 mls @ 0 mls/hr IV.CONT TITRATE PRN; Protocol PRN Reason: Per Protocol Last Titration: 09/24/18 09:31 Dose: 5 mcg/min, 1.5 mls/hr Sodium Chloride (Ns Inj) 1,000 mls @ 100 mls/hr IV.CONT .Q10H [facility] Last Admin: 09/26/18 07:33 Dose: 100 mls/hr Cefazolin Sodium 2,000 mg/ (Sodium Chloride) 100 mls @ 200 mls/hr IV.SIG ENDS BREAKAGE CLERK [facility] Stop: 10/01/18 10:15 Insulin Human Regular 100 unit (/ Sodium Chloride) 100 mls @ 3 mls/hr IV.CONT TITRATE PRN; Protocol PRN Reason: See Protocol Insulin Aspart (Novolog Insulin Correctional Sugar Inj) 20 unit SQ TIDAC [facility]; Protocol Last Admin: 09/26/18 17:09 Dose: 20 unit Insulin Aspart (Novolog Insulin Correctional Sugar Inj) 0 unit SQ 08,12,17,21, 03 [facility]; Protocol Last Admin: 09/26/18 17:09 Dose: Not Given Insulin Glargine (Lantus Inj) [address] [facility] Isosorbide Mononitrate (Imdur) 30 mg PO DAILY [facility] Last Admin: 09/24/18 10:13 Dose: Not Given Lactulose (Lactulose Liq) 30 ml PO DAILY PRN PRN Reason: SEVERE CONSITIPATION Metoprolol Tartrate (Lopressor) 12.5 mg PO ENDS BREAKAGE CLERK [facility] Stop: 10/01/18 10:15 Morphine Sulfate (Morphine Inj) 2 mg IV.PUSH Q4H PRN PRN Reason: PAIN 6-10 Mupirocin (Bactroban 2% Nasal Oint) 1 applicatio EACH NARE BID [facility] Stop: 09/29/18 10:15 Last Admin: 09/26/18 20:56 Dose: 1 applicatio Ondansetron HCl (Zofran Inj) 4 mg IV.PUSH Q6H PRN PRN Reason: NAUSEA OR VOMITING Ranolazine (Ranexa) 500 mg PO Q12H [facility] Last Admin: 09/26/18 20:55 Dose: 500 mg Senna/Docusate Sodium (Jacqui-Colace) 1 tab PO BID [facility] Last Admin: 09/26/18 20:55 Dose: 1 tab Sennosides (Senokot) 17.2 mg PO Q12H PRN PRN Reason: Moderate Constipation Sertraline HCl (Zoloft) 50 mg PO DAILY [facility] Last Admin: 09/26/18 08:29 Dose: 50 mg Sodium Chloride (Ns Flush) 2 ml IV.FLUSH BID [facility] Last Admin: 09/26/18 20:56 Dose: Not Given Sodium Chloride (Ns Flush) 2 ml IV.FLUSH PRN PRN PRN Reason: FLUSH AFTER USING IV ACCESS Temazepam (Restoril) 7.[address] [facility] Last Admin: 09/26/18 20:56 Dose: 7.5 mg Allergies Allergy/AdvReac Type Severity Reaction Status Date / Time metoprolol Allergy Severe HALLUCINATI Verified 09/23/18 22:25 ONS famotidine Allergy Unknown RASH Verified 09/23/18 22:25 lisinopril Allergy Unknown Itching Verified 09/23/18 22:25 insulin detemir AdvReac Unknown Diarrhea Verified 09/23/18 22:25 Home Medications Medication Instructions Recorded Confirmed Type aspirin [Aspir-81] 81 mg PO DAILY 08/03/18 09/24/18 History atorvastatin 20 mg PO DAILY 08/03/18 09/24/18 History insulin glargine [Lantus U-100 25 unit SUB-Q DAILY 08/03/18 09/24/18 History Insulin] insulin lispro [Humalog U-100 45 unit SUB-Q DAILY 08/03/18 09/24/18 History Insulin] isosorbide mononitrate 30 mg PO QAM 08/03/18 09/24/18 History methocarbamol 500 mg PO QID 08/03/18 09/24/18 History nitroglycerin 0.3 mg SUBLINGUAL Q5-15M PRN 08/03/18 09/24/18 History sertraline 50 mg PO DAILY 08/03/18 09/24/18 History temazepam 7.5 mg PO HS 08/03/18 09/24/18 History ticagrelor [Brilinta] 90 mg PO BID 08/03/18 09/24/18 History Physical Exam Vital signs: Vital Signs 09/26/18 00:00 09/26/18 01:00 09/26/18 02:00 Temperature 97.8 F Pulse Rate 70 70 74 Respiratory Rate 16 Blood Pressure 150/91 H Pulse Oximetry 99 09/26/18 03:00 09/26/18 03:55 09/26/18 04:00 Temperature 97.8 F Pulse Rate 67 81 68 Respiratory Rate 18 Blood Pressure 126/68 Pulse Oximetry 94 L 09/26/18 05:00 09/26/18 06:00 09/26/18 07:00 Temperature Pulse Rate 68 68 75 Respiratory Rate Blood Pressure Pulse Oximetry 09/26/18 08:00 09/26/18 09:00 09/26/18 10:00 Temperature 98.6 F Pulse Rate 82 70 74 Respiratory Rate 18 Blood Pressure 133/75 Pulse Oximetry 98 09/26/18 11:00 09/26/18 12:00 09/26/18 13:00 Temperature 97.7 F Pulse Rate 66 62 78 Respiratory Rate 18 Blood Pressure 147/79 H Pulse Oximetry 98 09/26/18 14:00 09/26/18 15:00 09/26/18 16:00 Temperature 98.1 F Pulse Rate 70 71 66 Respiratory Rate 18 Blood Pressure 131/70 Pulse Oximetry 99 09/26/18 17:00 09/26/18 18:00 09/26/18 19:00 Temperature Pulse Rate 82 78 80 Respiratory Rate Blood Pressure Pulse Oximetry 09/26/18 19:47 09/26/18 20:00 09/26/18 21:00 Temperature 98.6 F Pulse Rate 80 68 69 Respiratory Rate 19 Blood Pressure 134/67 Pulse Oximetry 99 97 09/26/18 22:00 Temperature Pulse Rate 68 Respiratory Rate Blood Pressure Pulse Oximetry Intake & Output 09/26/18 09/26/18 09/27/18 06:59 18:59 06:59 Intake Total 1240 / 1240 1410 / 1410 Output Total 2800 / 2800 2150 / 2150 Balance -1560 / -1560 -740 / -740 Weight 75 kg Intake: IV 1000 / 1000 250 / 250 Heparin/D5W 25,000 U/250 mL 25, 250 / 250 000 unit In 250 ml @ Per Protocol IV.CONT TITRATE PRN Rx #:[id number] NS Inj 1,000 ML @ 100 mls/hr IV 1000 / 1000 .CONT .Q10H [facility] Rx#:[id number] Oral 240 / 240 1160 / 1160 Output: Urine 2800 / 2800 2150 / 2150 Other: Date of Last Bowel Movement 09/25/18 Narrative: GENERAL: No acute distress. SKIN: Focused skin assessment warm and dry. HEENT: PERRLA, EOMI. CARDIOVASCULAR: Regular rate and rhythm. No obvious murmurs to auscultation. RESPIRATORY: No obvious rhonchi or wheezing. Clear to auscultation. Breath sounds equal bilaterally. GASTROINTESTINAL: Abdomen soft, non-tender, nondistended. BS normal. MUSCULOSKELETAL: Extremities without clubbing, cyanosis, or edema. NEUROLOGICAL: Awake, alert and oriented x4. No focal neurologic deficits. PSYCHIATRIC: Appropriate mood and affect. Insight and judgment normal. Results 09/25/18 05:38 09/25/18 05:38 Cardiac Enzymes 09/25/18 Range/Units 05:38 AST 15 (15-37) U/L Coagulation 09/25/18 09/26/18 09/26/18 Range/Units 05:38 01:24 08:10 APTT 38.5 H 42.7 H 46.0 H (23.4-31.7) sec CBC 09/25/18 Range/Units 05:38 WBC 7.0 (4.0-11.0) th/mm3 RBC 4.02 (4.00-5.30) mil/mm3 Hgb 11.8 (11.6-15.3) gm/dL Hct 34.3 L (35.0-46.0) % Plt Count 236 (150-450) th/mm3 Neut # (Auto) 3.1 (1.8-7.7) th/mm3 Lymph # (Auto) 3.4 (1.0-4.8) th/mm3 [place] # (Auto) 0.4 (0.0-0.9) th/mm3 Eos # (Auto) 0.2 (0.0-0.4) th/mm3 Baso # (Auto) 0.0 (0.0-0.2) th/mm3 Comprehensive Metabolic Panel 09/25/18 Range/Units 05:38 Sodium 142 (136-145) meq/L Potassium 4.0 (3.5-5.1) meq/L Chloride 110 H (98-107) meq/L Carbon Dioxide 27.2 (21.0-32.0) meq/L BUN 11 (7-18) mg/dL Creatinine 1.02 H (0.50-1.00) mg/dL Calcium 7.7 L (8.5-10.1) mg/dL AST 15 (15-37) U/L ALT 23 (10-53) U/L Alkaline Phosphatase 68 (45-117) U/L Total Protein 6.6 D (6.4-8.2) g/dL Albumin 3.0 L (3.4-5.0) g/dL Intake and Output 09/26/18 09/26/18 09/27/18 14:59 22:59 06:59 Intake Total 250 / 250 1160 / 1160 Output Total 2150 / 2150 Balance 250 / 250 -990 / -990 Intake: IV 250 / 250 Heparin/D5W 25,000 U/250 mL 25, 250 / 250 000 unit In 250 ml @ Per Protocol IV.CONT TITRATE PRN Rx #:[id number] Oral 1160 / 1160 Output: Urine 2150 / 2150 Other: Date of Last Bowel Movement 09/25/18 09/25/18 - Imaging and Cardiology Imaging: Impressions Chest X-Ray 09/25/18 10:12 CONCLUSION: No evidence of acute cardiopulmonary process. Assessment and Plan - Assessment (1) Unstable angina Code(s): I20.0 - Unstable angina Status: Acute (2) CAD (coronary artery disease), [place] coronary artery Code(s): I25.10 - Atherosclerotic heart disease of [place] coronary artery without angina pectoris Status: Acute (3) Diabetes mellitus Code(s): E11.9 - Type 2 diabetes mellitus without complications Status: Acute - Plan 1) [place]/CAD Currently on heparin and nitro drips Plan to stop nitro drip and restart Imdur Discussed with Dr. Campos, plan on CABG mid week if possible 2) Echo from office with normal function, no valvulopathies Report placed on chart 3) Carotid doppler from office showing no disease Report placed on chart 4) DM 5) Will hold Brilinta for planned surgery Con't on heparin drip Last dose 09/23 in the morning
[2018-09-27 04:32] LABS: Verify Now P2Y12 Platelet Inh 251 PRU (194-418)
[2018-09-27] MEDS: Insulin NovoLOG Aspart Correctional Sugar Inj SQ SCH ×8 (05:01→22:11)
--- NOTE | 2018-09-27 08:25 | P.PN ---
Subjective Interval history: This is a pleasant 58 y/o Female with CAD and DM II, who came to ER with Chest pain for one week, s/p Cath 08/03/18 w/ significant small vessel disease, not amenable to intervention and recommendation for medical management, on Imdur and Ranexa, Discussed in her bedroom with patient and nurse Guilherme, she has uncontrolled blood sugars and adjusted her Home Insulin she states uses Lantus 38 units at night started now and continue short acting Insulin premeal start with 15 units, and continue sliding scale, continue ADA diet, discussed at this time with her Primary extension service specialist in charge Doctor Melissa, also Doctor Beth here to see the patient, recommended Bypass surgery to her [LAD], [OM1] and RPDA (beyond the coronary stent) distributions. The OM 2 is very small and likely not bypassable. Additional the LAD has diffuse distal disease which is likely not be reachable by grafting. awaiting for resolution of Renal dysfunction and she was on Brilinta will be off this medicine for five days before surgery. recommended to obtain Carotid duplex imaging and Echocardiogram result from Doctor Melissa's office. 09/26: Stable in her office improving blood sugar checks below 180 mg/dl. no nausea, vomit or diarrhea, discussed with nurse Joe Avel 09/27: Better blood sugar checks, no nausea, vomit or diarrhea, now off nitroglycerine, continue Heparin. Physical Exam Vital signs: Vital Signs 09/26/18 09:00 09/26/18 10:00 09/26/18 11:00 Temperature Pulse Rate 70 74 66 Respiratory Rate Blood Pressure Pulse Oximetry 09/26/18 12:00 09/26/18 13:00 09/26/18 14:00 Temperature 97.7 F Pulse Rate 62 78 70 Respiratory Rate 18 Blood Pressure 147/79 H Pulse Oximetry 98 09/26/18 15:00 09/26/18 16:00 09/26/18 17:00 Temperature 98.1 F Pulse Rate 71 66 82 Respiratory Rate 18 Blood Pressure 131/70 Pulse Oximetry 99 09/26/18 18:00 09/26/18 19:00 09/26/18 19:47 Temperature 98.6 F Pulse Rate 78 80 80 Respiratory Rate 19 Blood Pressure 134/67 Pulse Oximetry 99 09/26/18 20:00 09/26/18 21:00 09/26/18 22:00 Temperature Pulse Rate 68 69 68 Respiratory Rate Blood Pressure Pulse Oximetry 97 09/26/18 23:00 09/27/18 00:00 09/27/18 01:00 Temperature 98.6 F Pulse Rate 71 78 78 Respiratory Rate 18 Blood Pressure 133/78 Pulse Oximetry 97 09/27/18 02:00 09/27/18 03:00 09/27/18 04:00 Temperature 98.4 F Pulse Rate 70 74 64 Respiratory Rate 16 Blood Pressure 122/71 Pulse Oximetry 97 09/27/18 05:00 09/27/18 06:00 09/27/18 07:00 Temperature Pulse Rate 75 73 68 Respiratory Rate Blood Pressure Pulse Oximetry Intake & Output 09/26/18 09/27/18 09/27/18 18:59 06:59 18:59 Intake Total 2410 / 2410 480 / 480 Output Total 2150 / 2150 2200 / 2200 Balance 260 / 260 -1720 / -1720 Weight 76.5 kg Intake: IV 1250 / 1250 Heparin/D5W 25,000 U/250 mL 25, 250 / 250 000 unit In 250 ml @ Per Protocol IV.CONT TITRATE PRN Rx #:[id number] NS Inj 1,000 ML @ 100 mls/hr IV 1000 / 1000 .CONT .Q10H [facility] Rx#:[id number] Oral 1160 / 1160 480 / 480 Output: Urine 2150 / 2150 2200 / 2200 Other: Date of Last Bowel Movement 09/25/18 Narrative: GENERAL: No acute distress. SKIN: Focused skin assessment warm and dry. HEENT: PERRLA, EOMI. CARDIOVASCULAR: Regular rate and rhythm. No obvious murmurs to auscultation. RESPIRATORY: No obvious rhonchi or wheezing. Clear to auscultation. Breath sounds equal bilaterally. GASTROINTESTINAL: Abdomen soft, non-tender, nondistended. BS normal. MUSCULOSKELETAL: Extremities without clubbing, cyanosis, or edema. NEUROLOGICAL: Awake, alert and oriented x4. No focal neurologic deficits. PSYCHIATRIC: Appropriate mood and affect. Insight and judgment normal. Results - Labs CBC & Chem 7: 09/25/18 05:38 09/25/18 05:38 Laboratory Results - last 24 hr 09/26/18 09/27/18 09/27/18 08:10 04:00 04:00 APTT 46.0 H 45.5 H Plt Funct P2Y12 Units 251 Plt Func Screen - ADP 123 H Plt Func Scrn - Epineph Greater than 300 H - Imaging Lower Extremity Ultrasound 09/24/18 00:00 CONCLUSION: Nonvisualization of the greater saphenous vein and portions of the lower legs bilaterally. Venous Doppler Study 09/24/18 00:00 CONCLUSION: Negative study. No venous thrombosis of either lower extremity. Chest X-Ray 09/25/18 10:12 CONCLUSION: No evidence of acute cardiopulmonary process. - Procedures None Assessment and Plan - Assessment (1) Unstable angina Code(s): I20.0 - Unstable angina Status: Acute (2) Renal insufficiency Code(s): N28.9 - Disorder of kidney and ureter, unspecified Status: Acute - Plan 1. Unstable Angina: c/o ongoing chest pain both w/ exertion and at rest, follows w/ Dr. Melissa, previous Cath 08/03/18 w/ small vessel disease, recommendation for medical management, pt notes minimal improvement w/ Raymundoexa. Seen by Her Primary extension service specialist in charge doctor Melissa recommended for Cardiothoracic surgery evaluation Seen by Doctor Campos here to see the patient, recommended Bypass surgery to her [LAD], [ OM1] and RPDA (beyond the coronary stent) distributions. The OM 2 is very small and likely not bypassable. Additional the LAD has diffuse distal disease which is likely not be reachable by grafting. awaiting for resolution of Renal dysfunction and she was on Brilinta will be off this medicine for five days before surgery. recommended to obtain Carotid duplex imaging and Echocardiogram result from Doctor Melissa's office. continue Heparin and stopped Nitroglycerine, has Surgery scheduled for 09/29/18 2. Renal Insufficiency: Acute on Chronic. Creatinine 1.02 improving. continue hydration. 3. DM II , Better control today continue present care Lantus 38 units in am, pre meal regular insulin 20 units and high sliding scale. hemoglobin A1C 8.6 4. Obesity strongly recommended diet and exercise as outpatient. DVT Prophylaxis: Heparin gtt Code Status: Full Code. Discussed Condition With: patient and Nurse Mr. Vallecillo. Discharge Planning: Once cleared by Specialists.
[2018-09-27] MEDS: Mupirocin 2% Nasal Oint Topical Syringe EACH NARE SCH ×2 (08:53→22:11)
[2018-09-27] MEDS: Ranolazine 500 MG 12HR ER Tablet PO SCH ×2 (08:53→22:09)
[2018-09-27] MEDS: Senna/Docusate Sodium 8.6/50 MG Tablet PO SCH ×2 (08:53→22:09)
[2018-09-27] MEDS: Sertraline 50 MG Tablet PO SCH (08:53)
[2018-09-27] MEDS: Isosorbide Mononitrate 30 MG ER 24HR Tablet (Imdur) PO SCH (08:53)
[2018-09-27] MEDS: Sodium Chloride 0.9% 2 ML Flush BID IV.FLUSH SCH ×2 (08:54→22:12)
[2018-09-27] MEDS: Heparin Drip 25,000 UNIT/250 ML BAG IV.CONT PRN (11:23)
--- NOTE | 2018-09-27 13:50 | P.PNCV ---
- Note Subjective/Hospital Course: sts data discussed with pt RISK SCORES About the STS Risk Calculator Procedure: CAB Only Risk of Mortality: 0.745% Morbidity or Mortality: 8.994% Long Length of Stay: 3.108% Short Length of Stay: 56.144% Permanent Stroke: 0.567% Prolonged Ventilation: 6.252% DSW Infection: 0.387% Renal Failure: 1.922% Reoperation: 3.349% 58-year-old female with a significant history of coronary artery disease the presented to the ED for evaluation of chest pain. Patient has had chest pain for about a week. Per patient is progressively getting worse. She denies any urinary or bowel movement issues. She states that the pain gets worse with stress and movement. She took 4 nitro with minimal improvement of the symptoms which was what prompted her evaluation. Patient was admitted recently in July for evaluation of similar. She had another heart cath that showed . Significant multivessel disease, although overall small vessels. She did not had stenting at that time and they thought that she could have increase of her medications and may be this will help with her symptoms but she continues to have symptoms. PMH: CAD/ [place]/ Stents/ HTN, HLP, DM insulin dependent EF 58% 09/26 pt on heparin gtt, 3 mcq of NTG will resume imdur and dc NTG, pt pain free eval PRU in am for timing of surgery off Brilinta since Thursday 09/27 off NTG gtt / on imdur/ heparin gtt, painfree PRU>250 stable for surgery on Objective: Vital Signs - 24 hr 09/26/18 14:00 09/26/18 15:00 09/26/18 16:00 Temperature 98.1 F Pulse Rate 70 71 66 Respiratory Rate 18 Blood Pressure 131/70 Pulse Oximetry 99 09/26/18 17:00 09/26/18 18:00 09/26/18 19:00 Temperature Pulse Rate 82 78 80 Respiratory Rate Blood Pressure Pulse Oximetry 09/26/18 19:47 09/26/18 20:00 09/26/18 21:00 Temperature 98.6 F Pulse Rate 80 68 69 Respiratory Rate 19 Blood Pressure 134/67 Pulse Oximetry 99 97 09/26/18 22:00 09/26/18 23:00 09/27/18 00:00 Temperature 98.6 F Pulse Rate 68 71 78 Respiratory Rate 18 Blood Pressure 133/78 Pulse Oximetry 97 09/27/18 01:00 09/27/18 02:00 09/27/18 03:00 Temperature Pulse Rate 78 70 74 Respiratory Rate Blood Pressure Pulse Oximetry 09/27/18 04:00 09/27/18 05:00 09/27/18 06:00 Temperature 98.4 F Pulse Rate 64 75 73 Respiratory Rate 16 Blood Pressure 122/71 Pulse Oximetry 97 09/27/18 07:00 09/27/18 08:00 09/27/18 09:00 Temperature 98.4 F Pulse Rate 68 68 68 Respiratory Rate 18 Blood Pressure 131/78 Pulse Oximetry 98 09/27/18 10:00 09/27/18 12:00 Temperature 98.3 F Pulse Rate 82 73 Respiratory Rate 18 Blood Pressure 148/78 H Pulse Oximetry 99 GENERAL: SKIN: Warm and dry. HEAD: Normocephalic. EYES: No scleral icterus. No injection or drainage. NECK: Supple, trachea midline. No JVD or lymphadenopathy. CARDIOVASCULAR: Regular rate and rhythm without murmurs, gallops, or rubs. RESPIRATORY: Breath sounds equal bilaterally. No accessory muscle use. GASTROINTESTINAL: Abdomen soft, non-tender, nondistended. MUSCULOSKELETAL: No cyanosis, or edema. BACK: Nontender without obvious deformity. No CVA tenderness. Labs: Laboratory Results - last 12 hr 09/27/18 09/27/18 04:00 04:00 APTT 45.5 H Plt Funct P2Y12 Units 251 Plt Func Screen - ADP 123 H Plt Func Scrn - Epineph Greater than 300 H Result Diagrams: 09/25/18 05:38 09/25/18 05:38 Telemetry: NSR - Plan (1) CAD (coronary artery disease), [place] coronary artery Plan: ASA, statin Heparin gtt long acting nitrates for surgery on (2) Diabetes mellitus Plan: diabetic diet insulin sliding scale HGB A1C 8.6 (3) Unstable angina Plan: pain free at this time (4) Renal insufficiency Plan: indices improving
--- NOTE | 2018-09-27 18:47 | P.PNCA ---
Subjective Interval history: Feels well No chest pain Off nitro drip, on Imdur On heparin drip Medications and Allergies Active Medications: Active Medications Acetaminophen (Tylenol) 650 mg PO Q4H PRN PRN Reason: Temp > 100.4 Last Admin: 09/26/18 11:29 Dose: 650 mg Al Hydroxide/Mg Hydroxide (Milk Of [place] Liq) 30 ml PO Q12H PRN PRN Reason: Mild Constipation Aspirin (Ecotrin) 81 mg PO DAILY [facility] Last Admin: 09/27/18 08:53 Dose: 81 mg Atorvastatin Calcium (Lipitor) 20 mg PO HS [facility] Last Admin: 09/26/18 20:56 Dose: 20 mg Bisacodyl (Dulcolax Supp) 10 mg RECTAL DAILY PRN PRN Reason: SEVERE CONSITIPATION Chlorhexidine Gluconate (Hibiclens 4% Topical) 1 applicatio TOPICAL CASE BRIEFER [facility] Stop: 10/01/18 10:12 Sodium Chloride 77.5 ml/Papaverine HCl 60 mg/Nitroglycerin 100 mcg/Diltiazem HCl 100 mg 0 ml IRRIGATION CASE BRIEFER [facility] Stop: 10/01/18 10:12 Sodium Chloride 500 ml/ (Cefazolin Sodium 500 mg) 0 ml IRRIGATION CASE BRIEFER [facility] Stop: 10/01/18 10:14 Dextrose (D50w Vial) 50 ml IV.PUSH UNSCH PRN PRN Reason: PER HYPOGLYCEMIA PROTOCOL Heparin Sodium/Dextrose (Heparin/D5w 25,000 U/250 Ml) 25,000 unit in 250 mls @ 0 mls/hr IV.CONT TITRATE PRN; Protocol PRN Reason: Per Protocol Last Admin: 09/27/18 11:23 Dose: 1,000 units/hr, 10 mls/hr Cefazolin Sodium 2,000 mg/ (Sodium Chloride) 100 mls @ 200 mls/hr IV.SIG CASE BRIEFER [facility] Stop: 10/01/18 10:15 Insulin Human Regular 100 unit (/ Sodium Chloride) 100 mls @ 3 mls/hr IV.CONT TITRATE PRN; Protocol PRN Reason: See Protocol Insulin Aspart (Novolog Insulin Correctional Sugar Inj) 20 unit SQ TIDAC [facility]; Protocol Last Admin: 09/27/18 17:19 Dose: 20 unit Insulin Aspart (Novolog Insulin Correctional Sugar Inj) 0 unit SQ 08,12,17,21, 03 [facility]; Protocol Last Admin: 09/27/18 17:20 Dose: Not Given Insulin Glargine (Lantus Inj) 38 units SQ HS [facility] Last Admin: 09/26/18 23:56 Dose: 38 units Isosorbide Mononitrate (Imdur) 30 mg PO DAILY [facility] Last Admin: 09/27/18 08:53 Dose: 30 mg Lactulose (Lactulose Liq) 30 ml PO DAILY PRN PRN Reason: SEVERE CONSITIPATION Metoprolol Tartrate (Lopressor) 12.5 mg PO CASE BRIEFER [facility] Stop: 10/01/18 10:15 Morphine Sulfate (Morphine Inj) 2 mg IV.PUSH Q4H PRN PRN Reason: PAIN 6-10 Mupirocin (Bactroban 2% Nasal Oint) 1 applicatio EACH NARE BID [facility] Stop: 09/29/18 10:15 Last Admin: 09/27/18 08:53 Dose: 1 applicatio Ondansetron HCl (Zofran Inj) 4 mg IV.PUSH Q6H PRN PRN Reason: NAUSEA OR VOMITING Ranolazine (Ranexa) 500 mg PO Q12H [facility] Last Admin: 09/27/18 08:53 Dose: 500 mg Senna/Docusate Sodium (Jacqui-Colace) 1 tab PO BID [facility] Last Admin: 09/27/18 08:53 Dose: 1 tab Sennosides (Senokot) 17.2 mg PO Q12H PRN PRN Reason: Moderate Constipation Sertraline HCl (Zoloft) 50 mg PO DAILY [facility] Last Admin: 09/27/18 08:53 Dose: 50 mg Sodium Chloride (Ns Flush) 2 ml IV.FLUSH BID [facility] Last Admin: 09/27/18 08:54 Dose: 2 ml Sodium Chloride (Ns Flush) 2 ml IV.FLUSH PRN PRN PRN Reason: FLUSH AFTER USING IV ACCESS Temazepam (Restoril) 7.5 mg PO HS [facility] Last Admin: 09/26/18 20:56 Dose: 7.5 mg Allergies Allergy/AdvReac Type Severity Reaction Status Date / Time metoprolol Allergy Severe HALLUCINATI Verified 09/23/18 22:25 ONS famotidine Allergy Unknown RASH Verified 09/23/18 22:25 lisinopril Allergy Unknown Itching Verified 09/23/18 22:25 insulin detemir AdvReac Unknown Diarrhea Verified 09/23/18 22:25 Home Medications Medication Instructions Recorded Confirmed Type aspirin [Aspir-81] 81 mg PO DAILY 08/03/18 09/24/18 History atorvastatin 20 mg PO DAILY 08/03/18 09/24/18 History insulin glargine [Lantus U-100 25 unit SUB-Q DAILY 08/03/18 09/24/18 History Insulin] insulin lispro [Humalog U-100 45 unit SUB-Q DAILY 08/03/18 09/24/18 History Insulin] isosorbide mononitrate 30 mg PO QAM 08/03/18 09/24/18 History methocarbamol 500 mg PO QID 08/03/18 09/24/18 History nitroglycerin 0.3 mg SUBLINGUAL Q5-15M PRN 08/03/18 09/24/18 History sertraline 50 mg PO DAILY 08/03/18 09/24/18 History temazepam 7.5 mg PO HS 08/03/18 09/24/18 History ticagrelor [Brilinta] 90 mg PO BID 08/03/18 09/24/18 History Physical Exam Vital signs: Vital Signs 09/26/18 19:00 09/26/18 19:47 09/26/18 20:00 Temperature 98.6 F Pulse Rate 80 80 68 Respiratory Rate 19 Blood Pressure 134/67 Pulse Oximetry 99 97 09/26/18 21:00 09/26/18 22:00 09/26/18 23:00 Temperature Pulse Rate 69 68 71 Respiratory Rate Blood Pressure Pulse Oximetry 09/27/18 00:00 09/27/18 01:00 09/27/18 02:00 Temperature 98.6 F Pulse Rate 78 78 70 Respiratory Rate 18 Blood Pressure 133/78 Pulse Oximetry 97 09/27/18 03:00 09/27/18 04:00 09/27/18 05:00 Temperature 98.4 F Pulse Rate 74 64 75 Respiratory Rate 16 Blood Pressure 122/71 Pulse Oximetry 97 09/27/18 06:00 09/27/18 07:00 09/27/18 08:00 Temperature 98.4 F Pulse Rate 73 68 68 Respiratory Rate 18 Blood Pressure 131/78 Pulse Oximetry 98 09/27/18 09:00 09/27/18 10:00 09/27/18 11:00 Temperature Pulse Rate 68 82 73 Respiratory Rate Blood Pressure Pulse Oximetry 09/27/18 12:00 09/27/18 13:00 09/27/18 14:00 Temperature 98.3 F Pulse Rate 90 76 70 Respiratory Rate 18 Blood Pressure 148/78 H Pulse Oximetry 99 09/27/18 15:00 09/27/18 16:00 09/27/18 17:00 Temperature 98.3 F Pulse Rate 76 70 68 Respiratory Rate 18 Blood Pressure 116/68 Pulse Oximetry 97 09/27/18 17:15 09/27/18 18:00 Temperature Pulse Rate 72 Respiratory Rate Blood Pressure Pulse Oximetry 98 Intake & Output 09/26/18 09/27/18 09/27/18 18:59 06:59 18:59 Intake Total 2410 / 2410 480 / 480 730 / 730 Output Total 2150 / 2150 2200 / 2200 900 / 900 Balance 260 / 260 -1720 / -1720 -170 / -170 Weight 76.5 kg Intake: IV 1250 / 1250 250 / 250 Heparin/D5W 25,000 U/250 mL 25, 250 / 250 250 / 250 000 unit In 250 ml @ Per Protocol IV.CONT TITRATE PRN Rx #:[id number] NS Inj 1,000 ML @ 100 mls/hr IV 1000 / 1000 .CONT .Q10H GOLDY Rx#:[id number] Oral 1160 / 1160 480 / 480 480 / 480 Output: Urine 2150 / 2150 2200 / 2200 900 / 900 Other: # Voids 2 Date of Last Bowel Movement 09/25/18 09/25/18 Narrative: GENERAL: No acute distress. SKIN: Focused skin assessment warm and dry. HEENT: PERRLA, EOMI. CARDIOVASCULAR: Regular rate and rhythm. No obvious murmurs to auscultation. RESPIRATORY: No obvious rhonchi or wheezing. Clear to auscultation. Breath sounds equal bilaterally. GASTROINTESTINAL: Abdomen soft, non-tender, nondistended. BS normal. MUSCULOSKELETAL: Extremities without clubbing, cyanosis, or edema. NEUROLOGICAL: Awake, alert and oriented x4. No focal neurologic deficits. PSYCHIATRIC: Appropriate mood and affect. Insight and judgment normal. Results 09/25/18 05:38 09/25/18 05:38 Coagulation 09/26/18 09/26/18 09/27/18 Range/Units 01:24 08:10 04:00 APTT 42.7 H 46.0 H 45.5 H (23.4-31.7) sec Intake and Output 09/27/18 09/27/18 09/27/18 06:59 14:59 22:59 Intake Total 480 / 480 250 / 250 480 / 480 Output Total 2200 / 2200 900 / 900 Balance -1720 / -1720 250 / 250 -420 / -420 Intake: IV 250 / 250 Heparin/D5W 25,000 U/250 mL 25, 250 / 250 000 unit In 250 ml @ Per Protocol IV.CONT TITRATE PRN Rx #:[id number] Oral 480 / 480 480 / 480 Output: Urine 2200 / 2200 900 / 900 Other: # Voids 2 Date of Last Bowel Movement 09/25/18 09/25/18 Weight 76.5 kg Assessment and Plan - Assessment (1) Unstable angina Code(s): I20.0 - Unstable angina Status: Acute (2) CAD (coronary artery disease), [place] coronary artery Code(s): I25.10 - Atherosclerotic heart disease of [place] coronary artery without angina pectoris Status: Acute (3) Diabetes mellitus Code(s): E11.9 - Type 2 diabetes mellitus without complications Status: Acute - Plan 1) [place]/CAD Currently on heparin Nitro drip stopped, on Imdur Discussed with Dr. Campos, plan on CABG 2) Echo from office with normal function, no valvulopathies Report placed on chart 3) Carotid doppler from office showing no disease Report placed on chart 4) DM 5) Will hold Brilinta for planned surgery Con't on heparin drip Last dose 09/23 in the morning Platelet function ok for surgery
[2018-09-27] MEDS: Insulin Glargine Inj 1,000 UNITS/10 ML Vial SQ SCH (22:12)
[2018-09-27] MEDS: Acetaminophen 325 MG Tablet PO PRN (22:28)
[2018-09-28] MEDS: Insulin NovoLOG Aspart Correctional Sugar Inj SQ SCH ×8 (02:56→22:15)
[2018-09-28 06:26] LABS: Activated Partial Thrombo Time 35.2 sec (23.4-31.7); INR 1.1 Ratio
[2018-09-28 06:37] LABS: Calcium 8.6 mg/dL (8.5-10.1); Carbon Dioxide 26.6 meq/L (21.0-32.0); Magnesium 2.2 mg/dL (1.5-2.5); Potassium 3.6 meq/L (3.5-5.1)
--- NOTE | 2018-09-28 09:28 | P.PNCV ---
- Note Subjective/Hospital Course: sts data discussed with pt RISK SCORES About the STS Risk Calculator Procedure: CAB Only Risk of Mortality: 0.745% Morbidity or Mortality: 8.994% Long Length of Stay: 3.108% Short Length of Stay: 56.144% Permanent Stroke: 0.567% Prolonged Ventilation: 6.252% DSW Infection: 0.387% Renal Failure: 1.922% Reoperation: 3.349% 58-year-old female with a significant history of coronary artery disease the presented to the ED for evaluation of chest pain. Patient has had chest pain for about a week. Per patient is progressively getting worse. She denies any urinary or bowel movement issues. She states that the pain gets worse with stress and movement. She took 4 nitro with minimal improvement of the symptoms which was what prompted her evaluation. Patient was admitted recently in July for evaluation of similar. She had another heart cath that showed . Significant multivessel disease, although overall small vessels. She did not had stenting at that time and they thought that she could have increase of her medications and may be this will help with her symptoms but she continues to have symptoms. PMH: CAD/ [place]/ Stents/ HTN, HLP, DM insulin dependent EF 58% 09/26 pt on heparin gtt, 3 mcq of NTG will resume imdur and dc NTG, pt pain free eval PRU in am for timing of surgery off Brilinta since Thursday 09/27 off NTG gtt / on imdur/ heparin gtt, painfree PRU>250 stable for surgery on 09/28 doing well, no chest pain during the night on heparin gtt stable for surgery in am Objective: Vital Signs - 24 hr 09/27/18 10:00 09/27/18 11:00 09/27/18 12:00 Temperature 98.3 F Pulse Rate 82 73 90 Respiratory Rate 18 Blood Pressure 148/78 H Pulse Oximetry 99 09/27/18 13:00 09/27/18 14:00 09/27/18 15:00 Temperature Pulse Rate 76 70 76 Respiratory Rate Blood Pressure Pulse Oximetry 09/27/18 16:00 09/27/18 17:00 09/27/18 17:15 Temperature 98.3 F Pulse Rate 70 68 Respiratory Rate 18 Blood Pressure 116/68 Pulse Oximetry 97 98 09/27/18 18:00 09/27/18 20:00 09/27/18 21:00 Temperature 98.4 F Pulse Rate 72 73 62 Respiratory Rate 18 Blood Pressure 149/77 H Pulse Oximetry 99 09/27/18 22:00 09/27/18 23:00 09/28/18 00:00 Temperature 98.6 F Pulse Rate 66 66 64 Respiratory Rate 18 Blood Pressure 146/64 H Pulse Oximetry 100 09/28/18 01:00 09/28/18 02:00 09/28/18 03:00 Temperature Pulse Rate 70 74 70 Respiratory Rate Blood Pressure Pulse Oximetry 09/28/18 04:00 09/28/18 05:00 09/28/18 06:00 Temperature 97.5 F L Pulse Rate 66 64 72 Respiratory Rate 18 Blood Pressure 132/78 Pulse Oximetry 98 GENERAL: SKIN: Warm and dry. HEAD: Normocephalic. EYES: No scleral icterus. No injection or drainage. NECK: Supple, trachea midline. No JVD or lymphadenopathy. CARDIOVASCULAR: Regular rate and rhythm without murmurs, gallops, or rubs. RESPIRATORY: Breath sounds equal bilaterally. No accessory muscle use. GASTROINTESTINAL: Abdomen soft, non-tender, nondistended. MUSCULOSKELETAL: No cyanosis, or edema. BACK: Nontender without obvious deformity. No CVA tenderness. Labs: Laboratory Results - last 12 hr 09/28/18 09/28/18 09/28/18 04:47 04:47 04:47 PT 11.0 INR 1.1 APTT 35.2 H D Sodium 143 Potassium 3.6 Chloride 109 H Carbon Dioxide 26.6 Anion Gap 7 BUN 8 Creatinine 1.04 H Estimated GFR 66 L Random Glucose 127 H Calcium 8.6 Magnesium 2.2 Blood Type B Positive Antibody Screen Negative MTS Gel Crossmatch See Detail Result Diagrams: 09/25/18 05:38 09/28/18 04:47 - Plan (1) CAD (coronary artery disease), [place] coronary artery Plan: ASA, statin Heparin gtt long acting nitrates stable for surgery on (2) Diabetes mellitus Plan: diabetic diet insulin sliding scale HGB A1C 8.6 (3) Unstable angina Plan: pain free at this time (4) Renal insufficiency Plan: indices improving
[2018-09-28] MEDS: Senna/Docusate Sodium 8.6/50 MG Tablet PO SCH ×2 (09:30→22:10)
[2018-09-28] MEDS: Mupirocin 2% Nasal Oint Topical Syringe EACH NARE SCH ×2 (09:30→22:09)
[2018-09-28] MEDS: Sertraline 50 MG Tablet PO SCH (09:30)
[2018-09-28] MEDS: Ranolazine 500 MG 12HR ER Tablet PO SCH ×2 (09:30→22:09)
[2018-09-28] MEDS: Sodium Chloride 0.9% 2 ML Flush BID IV.FLUSH SCH ×2 (09:30→22:16)
[2018-09-28] MEDS: Isosorbide Mononitrate 30 MG ER 24HR Tablet (Imdur) PO SCH (09:30)
[2018-09-28] MEDS ORDERED: ceFAZolin 2 GM Premix Inj 2 GM/50 ML PIGGYBACK IV.SIG SCH (09:45)
--- NOTE | 2018-09-28 11:42 | P.PN ---
Subjective Interval history: This is a pleasant 58 y/o Female with CAD and DM II, who came to ER with Chest pain for one week, s/p Cath 08/03/18 w/ significant small vessel disease, not amenable to intervention and recommendation for medical management, on Imdur and Ranexa, Discussed in her bedroom with patient and nurse Guilherme, she has uncontrolled blood sugars and adjusted her Home Insulin she states uses Lantus 38 units at night started now and continue short acting Insulin premeal start with 15 units, and continue sliding scale, continue ADA diet, discussed at this time with her Primary web application dev specialist Doctor Melissa, also Doctor Beth here to see the patient, recommended Bypass surgery to her [LAD], [OM1] and RPDA (beyond the coronary stent) distributions. The OM 2 is very small and likely not bypassable. Additional the LAD has diffuse distal disease which is likely not be reachable by grafting. awaiting for resolution of Renal dysfunction and she was on Brilinta will be off this medicine for five days before surgery. recommended to obtain Carotid duplex imaging and Echocardiogram result from Doctor Melissa's office. 09/26: Stable in her office improving blood sugar checks below 180 mg/dl. no nausea, vomit or diarrhea, discussed with nurse Joe Avel 09/27: Better blood sugar checks, now off nitroglycerine, continue Heparin. 09/28: Seen in her bedroom, no Nausea, vomit or diarrhea, will have CABG tomorrow. good blood sugar checks. Physical Exam Vital signs: Vital Signs 09/27/18 12:00 09/27/18 13:00 09/27/18 14:00 Temperature 98.3 F Pulse Rate 90 76 70 Respiratory Rate 18 Blood Pressure 148/78 H Pulse Oximetry 99 09/27/18 15:00 09/27/18 16:00 09/27/18 17:00 Temperature 98.3 F Pulse Rate 76 70 68 Respiratory Rate 18 Blood Pressure 116/68 Pulse Oximetry 97 09/27/18 17:15 09/27/18 18:00 09/27/18 20:00 Temperature 98.4 F Pulse Rate 72 73 Respiratory Rate 18 Blood Pressure 149/77 H Pulse Oximetry 98 99 09/27/18 21:00 09/27/18 22:00 09/27/18 23:00 Temperature Pulse Rate 62 66 66 Respiratory Rate Blood Pressure Pulse Oximetry 09/28/18 00:00 09/28/18 01:00 09/28/18 02:00 Temperature 98.6 F Pulse Rate 64 70 74 Respiratory Rate 18 Blood Pressure 146/64 H Pulse Oximetry 100 09/28/18 03:00 09/28/18 04:00 09/28/18 05:00 Temperature 97.5 F L Pulse Rate 70 66 64 Respiratory Rate 18 Blood Pressure 132/78 Pulse Oximetry 98 09/28/18 06:00 09/28/18 07:00 09/28/18 08:00 Temperature Pulse Rate 72 68 68 Respiratory Rate Blood Pressure Pulse Oximetry 96 Intake & Output 09/27/18 09/28/18 09/28/18 18:59 06:59 18:59 Intake Total 730 / 730 720 / 720 Output Total 900 / 900 2850 / 2850 Balance -170 / -170 -2130 / -2130 Intake: IV 250 / 250 Heparin/D5W 25,000 U/250 mL 25, 250 / 250 000 unit In 250 ml @ Per Protocol IV.CONT TITRATE PRN Rx #:[id number] Oral 480 / 480 720 / 720 Output: Urine 900 / 900 2850 / 2850 Other: # Voids 2 Date of Last Bowel Movement 09/25/18 09/28/18 # Bowel Movements 1 Narrative: GENERAL: No acute distress. SKIN: Focused skin assessment warm and dry. HEENT: PERRLA, EOMI. CARDIOVASCULAR: Regular rate and rhythm. No obvious murmurs to auscultation. RESPIRATORY: No obvious rhonchi or wheezing. Clear to auscultation. Breath sounds equal bilaterally. GASTROINTESTINAL: Abdomen soft, non-tender, nondistended. BS normal. MUSCULOSKELETAL: Extremities without clubbing, cyanosis, or edema. NEUROLOGICAL: Awake, alert and oriented x4. No focal neurologic deficits. PSYCHIATRIC: Appropriate mood and affect. Insight and judgment normal. Results - Labs CBC & Chem 7: 09/25/18 05:38 09/28/18 04:47 Laboratory Results - last 24 hr 09/28/18 09/28/18 09/28/18 04:47 04:47 04:47 PT 11.0 INR 1.1 APTT 35.2 H D Sodium 143 Potassium 3.6 Chloride 109 H Carbon Dioxide 26.6 Anion Gap 7 BUN 8 Creatinine 1.04 H Estimated GFR 66 L Random Glucose 127 H Calcium 8.6 Magnesium 2.2 Blood Type B Positive Antibody Screen Negative MTS Gel Crossmatch See Detail - Imaging Lower Extremity Ultrasound 09/24/18 00:00 CONCLUSION: Nonvisualization of the greater saphenous vein and portions of the lower legs bilaterally. Venous Doppler Study 09/24/18 00:00 CONCLUSION: Negative study. No venous thrombosis of either lower extremity. Chest X-Ray 09/25/18 10:12 CONCLUSION: No evidence of acute cardiopulmonary process. - Procedures None Assessment and Plan - Assessment (1) Unstable angina Code(s): I20.0 - Unstable angina Status: Acute (2) Renal insufficiency Code(s): N28.9 - Disorder of kidney and ureter, unspecified Status: Acute - Plan 1. Unstable Angina: c/o ongoing chest pain both w/ exertion and at rest, follows w/ Dr. Melissa, previous Cath 08/03/18 w/ small vessel disease, recommendation for medical management, pt notes minimal improvement w/ Ranexa. Seen by Her Primary web application dev specialist doctor Melissa recommended for Cardiothoracic surgery evaluation Seen by Doctor Campos here to see the patient, recommended Bypass surgery to her [LAD], [ OM1] and RPDA (beyond the coronary stent) distributions. The OM 2 is very small and likely not bypassable. Additional the LAD has diffuse distal disease which is likely not be reachable by grafting. awaiting for resolution of Renal dysfunction and she was on Brilinta will be off this medicine for five days before surgery. recommended to obtain Carotid duplex imaging and Echocardiogram result from Doctor Melissa's office. continue Heparin and stopped Nitroglycerine, has Surgery scheduled for 09/29/18 2. Renal Insufficiency: Acute on Chronic. Creatinine 1.02 improving. continue hydration. 3. DM II , Better control today continue present care Lantus 38 units in am, pre meal regular insulin 20 units and high sliding scale. hemoglobin A1C 8.6 4. Obesity strongly recommended diet and exercise as outpatient. 5. Hypokalemia replaced. DVT Prophylaxis: Heparin gtt Code Status: Full Code. Discussed Condition With: patient and Nurse Miss Mandujano Discharge Planning: Once cleared by Specialists.
[2018-09-28] MEDS: Heparin Drip 25,000 UNIT/250 ML BAG IV.CONT PRN (13:51)
--- NOTE | 2018-09-28 15:21 | US ---
EXAM DATE: 09/28/2018 3:19 PM EST AGE/SEX: 58 years / Female INDICATIONS: Preop cardiac surgery. CLINICAL DATA: This is the patient's initial encounter. Patient reports that signs and symptoms have been present for 1 day and indicates a pain score of 0/10. MEDICAL/SURGICAL HISTORY: . MRSA. . Cardiac cath. COMPARISON: No prior exams available for comparison. VELOCITY PARAMETERS: ICA/CCA Ratio: Right 0.93 , Left 0.81 ICA: Right 84 cm/sec, Left 82 cm/sec CCA: Right 90 cm/sec, Left 101 cm/sec ECA: Right 92 cm/sec, Left 111 cm/sec Vertebral: Right 48 cm/sec antegrade, Left 45 cm/sec antegrade FINDINGS: Right Carotid: No significant plaque is visualized.The waveforms are within normal limits. Left Carotid: No significant plaque is visualized. The waveforms are within normal limits. Other: None. CONCLUSION: 1. Right Internal Carotid Artery: No significant stenosis or atherosclerotic plaque is visualized. 2. Left Internal Carotid Artery: No significant stenosis or atherosclerotic plaque is visualized. Electronically signed by: Gabriel Hernández MD 09/28/2018 3:20 PM EST
[2018-09-28] MEDS: Insulin Glargine Inj 1,000 UNITS/10 ML Vial SQ SCH (22:12)
--- NOTE | 2018-09-28 23:12 | P.PNCA ---
Subjective Interval history: No events overnight No chest pain Medications and Allergies Active Medications: Active Medications Acetaminophen (Tylenol) 650 mg PO Q4H PRN PRN Reason: Temp > 100.4 Last Admin: 09/27/18 22:28 Dose: 650 mg Al Hydroxide/Mg Hydroxide (Milk Of Nils Liq) 30 ml PO Q12H PRN PRN Reason: Mild Constipation Aspirin (Ecotrin) 81 mg PO DAILY [facility] Last Admin: 09/28/18 09:30 Dose: 81 mg Atorvastatin Calcium (Lipitor) 20 mg PO HS [facility] Last Admin: 09/28/18 22:11 Dose: 20 mg Bisacodyl (Dulcolax Supp) 10 mg RECTAL DAILY PRN PRN Reason: SEVERE CONSITIPATION Chlorhexidine Gluconate (Hibiclens 4% Topical) 1 applicatio TOPICAL [employer] [facility] Stop: 10/01/18 10:12 Sodium Chloride 77.5 ml/Papaverine HCl 60 mg/Nitroglycerin 100 mcg/Diltiazem HCl 100 mg 0 ml IRRIGATION [employer] [facility] Stop: 10/01/18 10:12 Sodium Chloride 500 ml/ (Cefazolin Sodium 500 mg) 0 ml IRRIGATION [employer] [facility] Stop: 10/01/18 10:14 Dextrose (D50w Vial) 50 ml IV.PUSH UNSCH PRN PRN Reason: PER HYPOGLYCEMIA PROTOCOL Heparin Sodium/Dextrose (Heparin/D5w 25,000 U/250 Ml) 25,000 unit in 250 mls @ 0 mls/hr IV.CONT TITRATE PRN; Protocol PRN Reason: Per Protocol Last Admin: 09/28/18 13:51 Dose: 1,100 units/hr, 11 mls/hr Insulin Human Regular 100 unit (/ Sodium Chloride) 100 mls @ 3 mls/hr IV.CONT TITRATE PRN; Protocol PRN Reason: See Protocol Cefazolin Sodium/Dextrose (Ancef 2 Gm Premix Inj) 2 gm in 50 mls @ 200 mls/hr IV.SIG [employer] [facility] Stop: 10/01/18 09:43 Insulin Aspart (Novolog Insulin Correctional Sugar Inj) 20 unit SQ TIDAC [facility]; Protocol Last Admin: 09/28/18 17:50 Dose: 20 unit Insulin Aspart (Novolog Insulin Correctional Sugar Inj) 0 unit SQ 08,12,17,21, 03 [facility]; Protocol Last Admin: 09/28/18 22:15 Dose: Not Given Insulin Glargine (Lantus Inj) 38 units SQ HS [facility] Last Admin: 09/28/18 22:12 Dose: 38 units Isosorbide Mononitrate (Imdur) 30 mg PO DAILY [facility] Last Admin: 09/28/18 09:30 Dose: 30 mg Lactulose (Lactulose Liq) 30 ml PO DAILY PRN PRN Reason: SEVERE CONSITIPATION Metoprolol Tartrate (Lopressor) 12.5 mg PO [employer] [facility] Stop: 10/01/18 10:15 Morphine Sulfate (Morphine Inj) 2 mg IV.PUSH Q4H PRN PRN Reason: PAIN 6-10 Mupirocin (Bactroban 2% Nasal Oint) 1 applicatio EACH NARE BID [facility] Stop: 09/29/18 10:15 Last Admin: 09/28/18 22:09 Dose: 1 applicatio Ondansetron HCl (Zofran Inj) 4 mg IV.PUSH Q6H PRN PRN Reason: NAUSEA OR VOMITING Ranolazine (Ranexa) 500 mg PO Q12H [facility] Last Admin: 09/28/18 22:09 Dose: 500 mg Senna/Docusate Sodium (Jacqui-Colace) 1 tab PO BID [facility] Last Admin: 09/28/18 22:10 Dose: Not Given Sennosides (Senokot) 17.2 mg PO Q12H PRN PRN Reason: Moderate Constipation Sertraline HCl (Zoloft) 50 mg PO DAILY [facility] Last Admin: 09/28/18 09:30 Dose: 50 mg Sodium Chloride (Ns Flush) 2 ml IV.FLUSH BID [facility] Last Admin: 09/28/18 22:16 Dose: 2 ml Sodium Chloride (Ns Flush) 2 ml IV.FLUSH PRN PRN PRN Reason: FLUSH AFTER USING IV ACCESS Temazepam (Restoril) 7.5 mg PO HS [facility] Last Admin: 09/28/18 22:18 Dose: Not Given Allergies Allergy/AdvReac Type Severity Reaction Status Date / Time metoprolol Allergy Severe HALLUCINATI Verified 09/23/18 22:25 ONS famotidine Allergy Unknown RASH Verified 09/23/18 22:25 lisinopril Allergy Unknown Itching Verified 09/23/18 22:25 insulin detemir AdvReac Unknown Diarrhea Verified 09/23/18 22:25 Home Medications Medication Instructions Recorded Confirmed Type aspirin [Aspir-81] 81 mg PO DAILY 08/03/18 09/24/18 History atorvastatin 20 mg PO DAILY 08/03/18 09/24/18 History insulin glargine [Lantus U-100 25 unit SUB-Q DAILY 08/03/18 09/24/18 History Insulin] insulin lispro [Humalog U-100 45 unit SUB-Q DAILY 08/03/18 09/24/18 History Insulin] isosorbide mononitrate 30 mg PO QAM 08/03/18 09/24/18 History methocarbamol 500 mg PO QID 08/03/18 09/24/18 History nitroglycerin 0.3 mg SUBLINGUAL Q5-15M PRN 08/03/18 09/24/18 History sertraline 50 mg PO DAILY 08/03/18 09/24/18 History temazepam 7.5 mg PO HS 08/03/18 09/24/18 History ticagrelor [Brilinta] 90 mg PO BID 08/03/18 09/24/18 History Physical Exam Vital signs: Vital Signs 09/28/18 00:00 09/28/18 01:00 09/28/18 02:00 Temperature 98.6 F Pulse Rate 64 70 74 Respiratory Rate 18 Blood Pressure 146/64 H Pulse Oximetry 100 09/28/18 03:00 09/28/18 04:00 09/28/18 05:00 Temperature 97.5 F L Pulse Rate 70 66 64 Respiratory Rate 18 Blood Pressure 132/78 Pulse Oximetry 98 09/28/18 06:00 09/28/18 07:00 09/28/18 08:00 Temperature 98.6 F Pulse Rate 72 68 80 Respiratory Rate 18 Blood Pressure 112/68 Pulse Oximetry 97 09/28/18 09:00 09/28/18 10:00 09/28/18 11:00 Temperature Pulse Rate 73 74 77 Respiratory Rate Blood Pressure Pulse Oximetry 09/28/18 12:00 09/28/18 13:00 09/28/18 14:00 Temperature 98.7 F Pulse Rate 80 70 68 Respiratory Rate 17 Blood Pressure 112/68 Pulse Oximetry 97 09/28/18 15:00 09/28/18 16:00 09/28/18 17:00 Temperature 98.9 F Pulse Rate 70 82 88 Respiratory Rate 16 Blood Pressure 150/90 H Pulse Oximetry 98 09/28/18 18:00 09/28/18 19:00 09/28/18 20:00 Temperature 98.7 F Pulse Rate 90 75 77 Respiratory Rate 16 Blood Pressure 149/85 H Pulse Oximetry 96 09/28/18 21:00 09/28/18 22:00 09/28/18 23:00 Temperature 98.5 F Pulse Rate 77 63 67 Respiratory Rate 16 Blood Pressure 131/79 Pulse Oximetry 97 Intake & Output 09/28/18 09/28/18 09/29/18 06:59 18:59 06:59 Intake Total 720 / 720 1310 / 1310 Output Total 2850 / 2850 950 / 950 Balance -2130 / -2130 360 / 360 Intake: IV 250 / 250 Heparin/D5W 25,000 U/250 mL 25, 250 / 250 000 unit In 250 ml @ Per Protocol IV.CONT TITRATE PRN Rx #:[id number] Oral 720 / 720 1060 / 1060 Output: Urine 2850 / 2850 950 / 950 Other: Date of Last Bowel Movement 09/28/18 09/28/18 09/28/18 # Bowel Movements 1 2 Narrative: GENERAL: No acute distress. SKIN: Focused skin assessment warm and dry. HEENT: PERRLA, EOMI. CARDIOVASCULAR: Regular rate and rhythm. No obvious murmurs to auscultation. RESPIRATORY: No obvious rhonchi or wheezing. Clear to auscultation. Breath sounds equal bilaterally. GASTROINTESTINAL: Abdomen soft, non-tender, nondistended. BS normal. MUSCULOSKELETAL: Extremities without clubbing, cyanosis, or edema. NEUROLOGICAL: Awake, alert and oriented x4. No focal neurologic deficits. PSYCHIATRIC: Appropriate mood and affect. Insight and judgment normal. Results 09/25/18 05:38 09/28/18 04:47 Coagulation 09/27/18 09/28/18 09/28/18 Range/Units 04:00 04:47 12:53 PT 11.0 (9.8-11.6) sec APTT 45.5 H 35.2 H D 40.8 H (23.4-31.7) sec 09/28/18 Range/Units 18:25 PT (9.8-11.6) sec APTT 42.7 H (23.4-31.7) sec Comprehensive Metabolic Panel 09/28/18 Range/Units 04:47 Sodium 143 (136-145) meq/L Potassium 3.6 (3.5-5.1) meq/L Chloride 109 H (98-107) meq/L Carbon Dioxide 26.6 (21.0-32.0) meq/L BUN 8 (7-18) mg/dL Creatinine 1.04 H (0.50-1.00) mg/dL Calcium 8.6 (8.5-10.1) mg/dL Intake and Output 09/28/18 09/28/18 09/29/18 14:59 22:59 06:59 Intake Total 250 / 250 1060 / 1060 Output Total 950 / 950 Balance 250 / 250 110 / 110 Intake: IV 250 / 250 Heparin/D5W 25,000 U/250 mL 25, 250 / 250 000 unit In 250 ml @ Per Protocol IV.CONT TITRATE PRN Rx #:[id number] Oral 1060 / 1060 Output: Urine 950 / 950 Other: Date of Last Bowel Movement 09/27/18 09/28/18 # Bowel Movements 2 - Imaging and Cardiology Imaging: Impressions Carotid Doppler Study 09/28/18 10:09 CONCLUSION: 1. Right Internal Carotid Artery: No significant stenosis or atherosclerotic plaque is visualized. 2. Left Internal Carotid Artery: No significant stenosis or atherosclerotic plaque is visualized. Assessment and Plan - Assessment (1) Unstable angina Code(s): I20.0 - Unstable angina Status: Acute (2) CAD (coronary artery disease), [place] coronary artery Code(s): I25.10 - Atherosclerotic heart disease of [place] coronary artery without angina pectoris Status: Acute (3) Diabetes mellitus Code(s): E11.9 - Type 2 diabetes mellitus without complications Status: Acute - Plan 1) [place]/CAD Currently on heparin Nitro drip stopped, on Imdur Discussed with Dr. Campos, plan on CABG tomorrow 2) Echo from office with normal function, no valvulopathies Report placed on chart 3) Carotid doppler from office showing no disease Report placed on chart 4) DM 5) Will hold Brilinta for planned surgery Con't on heparin drip Last dose 09/23 in the morning Platelet function ok for surgery tomorrow
[2018-09-29] MEDS: Insulin NovoLOG Aspart Correctional Sugar Inj SQ SCH ×2 (05:46→22:58)
[2018-09-29] MEDS ORDERED: Nitroglycerin Drip Premix 50 MG/250 ML BOTTLE ONE ×2 (06:58→14:03)
[2018-09-29] MEDS ORDERED: Heparin - SQ 10,000 UNITS/ML Vial ONE (07:34)
[2018-09-29] MEDS ORDERED: ceFAZolin 1 GM Premix Inj 1 GM/50 ML FROZ.PIGGY IV.SIG ONE (07:34)
[2018-09-29] MEDS ORDERED: ceFAZolin 2 GM Premix Inj 2 GM/50 ML PIGGYBACK IV.SIG ONE (07:34)
[2018-09-29] MEDS ORDERED: Potassium Chlor 40 mEq Premix 40 MEQ/100 ML PIGGYBACK ONE (11:14)
[2018-09-29] MEDS ORDERED: Potassium Chlor 20 mEq Premix 20 MEQ/100 ML PIGGYBACK IV.SIG PRN ×3 (13:35)
[2018-09-29] MEDS ORDERED: Clevidipine Inj 25 MG/50 ML VIAL IV.CONT PRN (13:35)
[2018-09-29] MEDS ORDERED: Calcium Chloride Inj 1 GM/10 ML Syringe IV.PUSH PRN (13:35)
[2018-09-29] MEDS ORDERED: Magnesium Sulfate Inj 2 GM in Sodium Chlor 0.9% Inj 96 ML IV.SIG PRN ×4 (13:35)
[2018-09-29] MEDS ORDERED: Insulin Regular (For Infusion) 100 UNIT in Sodium Chlor 0.9% Inj 99 ML IV.CONT PRN (13:35)
[2018-09-29] MEDS ORDERED: Post-op Orders (for Pharmacy) OTHER STA (13:35)
[2018-09-29] MEDS ORDERED: Morphine Sulfate Inj 2 MG/ML Vial IV.PUSH PRN (13:35)
[2018-09-29] MEDS ORDERED: RESP: Racemic Epinephrine 2.25% 0.5 ML Neb NEB PRN (13:35)
[2018-09-29] MEDS ORDERED: Dexmedetomidine Inj 200 MCG in Sodium Chlor 0.9% Inj 48 ML IV.CONT PRN (13:35)
[2018-09-29] MEDS ORDERED: Ketorolac Inj 30 MG/ML (IVP) Vial IV.PUSH PRN (13:35)
--- NOTE | 2018-09-29 13:45 | P.OP ---
Date of procedure: 09/29/18 Anesthesia: KAITLIN Surgeon: Ernesto Campos MD Operation and Findings: PREPROCEDURE DIAGNOSES 1. Severe Multi Vessel Coronary Artery Disease status post previous stenting 2. Diabetes mellitus POSTPROCEDURE DIAGNOSES Same SURGICAL PROCEDURE 1. Urgent Off-pump Coronary Artery Bypass Grafting x 4 with Left Internal Mammary Artery (RAMEY) to Left Anterior Descending (LAD), reverse saphenous vein graft to obtuse Marginal1 and sequentially to the Obtuse Marginal 2 branches of the left Circumflex artery, reverse saphenous vein graft to the posterior Descending branch of the right Coronary artery 2. Left leg Endoscopic Vein Grass Range 3. Intraoperative Vein Mapping. SURGEON Ernesto Campos MD [employer] KALIA Camara ANESTHESIA General endotracheal FLEXIBLE BABYSITTER LISBETH Sargent MD PREPARATION ChloraPrep. COUNTS Needle, sponge, and instrument counts were correct. DRAINS Two 32-Tunisian mediastinal tubes. COMPLICATIONS None. INDICATIONS FOR PROCEDURE The patient is a 58-year-old presenting with chest pain. Patient was noted to have multi-vessel coronary artery disease with very small and severely and diffusely diseased coronary vessels. The patient is being brought to the operating room for surgical revascularization therapy. PROCEDURE Patient was brought to the operating room and placed supine on the OR table. Following the induction of adequate general endotracheal anesthesia and placement of appropriate monitoring devices, intraoperative vein mapping was performed which revealed good-caliber conduit in bilateral lower extremities. The patient was then prepped and draped in standard sterile fashion. Next, 2500 units of intravenous heparin was given. The left greater saphenous vein was harvested endoscopically. This appeared to be a useable-caliber conduit. Simultaneously, a median sternotomy was performed and the left internal mammary artery dissected free off the posterior sternal table. The patient was systemically heparinized and anticoagulation monitored by serial ACT measurements. The internal mammary artery had excellent pulsatile flow in it and was a good-caliber conduit. The pericardium was then divided in the midline , the cradle created and targets analyzed. At this point, all anastomoses were performed in a beating-heart fashion using the Maquet stabilizing system. All of her coronary arteries are very severely and diffusely diseased and of a very small caliber. The left internal mammary artery was anastomosed to the distal LAD (1.75 mm) in an end-to-side fashion using 7-0 Prolene. Segment of saphenous vein graft was then anastomosed to the OM1 (1.75 mm) in a [id number] fashion and sequentially to the OM 2 (1.5 mm) in an end-to-side fashion using 7-0 Prolene. The final segment was anastomosed to the RPDA (1.25 mm) in an end-to- side fashion using 7-0 Prolene. The proximal anastomoses were then constructed to the ascending aorta in a running manner using 6-0 Prolene. All anastomotic sites were inspected and appeared to be hemostatic and patent. Protamine solution was given. Strict hemostasis was assured. The closure was undertaken. 2 chest tubes were placed. The pericardium was reapproximated in the midline. The sternum was approximated using sternal wires. The muscular and fascial layer were then closed in 3 layers. The endoscopic vein harvest site was closed in 2 layers. The patient tolerated the procedure well and was transferred to CVICU in stable condition. Of note, the patient arrived to the operating room with ST elevation on her engine monitor which has persisted postoperatively. Trans esophageal echocardiogram revealed no wall motion abnormality despite the ST changes.
[2018-09-29] MEDS ORDERED: ceFAZolin Inj 2,000 MG in Sodium Chlor 0.9% Inj 80 ML IV.SIG SCH (14:00)
[2018-09-29] MEDS ORDERED: fentaNYL Citrate Inj 250 MCG/5 ML Ampul ONE ×2 (14:28)
--- NOTE | 2018-09-29 14:40 | XR ---
EXAM DATE: 09/29/2018 2:25 PM EST AGE/SEX: 58 years / Female INDICATIONS: Post CABG CLINICAL DATA: This is the patient's subsequent encounter. Patient reports that signs and symptoms h ave been present for 4 - 6 days and indicates a pain score of Nonresponsive. MEDICAL/SURGICAL HISTORY: . Cardiovascular disease. Diabetes mellitus type 2. Hypercholesterole jimmy. . . Hysterectomy COMPARISON: [facility] – [place], CHEST 2V PA&LAT, 09/25/2018. . FINDINGS: Left chest tube is in place. NG tube is present with tip in the stomach. Right IJ line is present with tip overlapping the expected region of the SVC. ET tube is present wi th tip overlapping approximately 3 above the mis. There is diffuse bilateral pulmonary edema to a moderate degree. Mediastinal drainage tube is in place. No definite pneumothorax is seen for technique. CONCLUSION: Moderate pulmonary edema. Electronically signed by: Misha Hall MD 09/29/2018 2:38 PM EST
[2018-09-29] MEDS ORDERED: Heparin/NS PF Inj 1,000 ML ONE (14:57)
[2018-09-29] MEDS ORDERED: Lidocaine PF 1% Inj 30 ML Vial ONE (15:38)
[2018-09-29] MEDS ORDERED: Heparin 10,000 UNITS/10 ML Vial (for IV use) ONE (16:34)
[2018-09-29] MEDS ORDERED: ceFAZolin 2 GM Premix Inj 2 GM/50 ML PIGGYBACK IV.SIG SCH (17:00)
--- NOTE | 2018-09-29 18:27 | CATHPROC ---
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 Physician and Clinical Staff Initial Chito Amador Hazardous Waste Management Specialist Lela Rivas,GUZMAN Hazardous Waste Management SpecialistMini Reina,GUZMAN Recorder Oma Quezada ,RT(R) Scrub Israel Guaman,RT(R) Procedures Performed Procedure Location (Site) Vessel Name Coronary Angiograms RCA Right Coronary Coronary Angiograms RAMEY-LAD Left Coronary Coronary Angiograms SVG-OM CIRC Drug Eluting Inflatio CIRC Mid CIRC Drug Eluting Inflatio OM1 Mid CIRC L Heart Cath PTCA CIRC Mid CIRC PTCA OM1 Mid CIRC PTCA OM2 Mid CIRC Wire insertion Fem Art (right) Femoral Art Equipment Time Customer Care Consultant Description Size Mfg Part Number Used/Scraped WIRE, BALANCE MIDDLEWEIGHT [id number] 16:29 [employer] 190CM Used 190CM *[id number] WIRE, BALANCE MIDDLEWEIGHT [id number] 17:30 [employer] 190CM Used 190CM *[id number] TRANSDUCER, TRUWAVE [id number] 14:59 MCCORMACK COLLADO * Used W/STOCKCOCK *[id number] INTRODUCER SET, 14:59 [employer] FR 5 [id number] *[id number] Used MICROPUNCTURE STIFF 534-545T *[id number] 534-548T *7708480 534-520T *6360926 534-521T *0290924 534-542T *[id number] [id number] 14:59 [employer] BLANKET,WARM AIR CCL * Used *[id number] 14:59 [employer] PACK, CCL CUSTOM * Used *[id number] [id number] 16:44 [employer]IC BALLOON, 1.5 X 10MM EUPHORA 10MM Used *[id number] 17:13 [employer] BALLOON, 1.5 X 15MM EUPHORA 15MM Used *[id number] 16:34 [employer] BALLOON, 2.0 X 12MM EUPHORA 12MM Used *[id number] BALLOON, 2.0 X 20MM NC [id number] 17:00 [employer]IC 20MM Used EUPHORA *[id number] [id number] 16:49 [employer] BALLOON, 2.0 X 30MM EUPHORA 30MM Used *[id number] 17:35 [employer]IC CATHETER, EXPORT ASPIRATON Used *8710173 [id number] 16:54 [employer]IC STENT, 2.0 12MM JINNY 2.0 X 12MM Used *2732488 [id number] 16:51 [employer]IC STENT, 2.0 30MM JINNY 2.0 X 30MM Used *[id number] [id number] 17:20 [employer]IC STENT, 2.0 30MM JINNY 2.0 X 30MM Used *[id number] [id number] 16:29 [employer]TR[employer]/AVE EBU 3.5 Z2 GUIDE CATHETER FR 6 Used *7609318 [id number] 16:27 [employer] 30 RAQUEL INDEFLATOR Used *[id number] [id number] 14:59 [employer] WIRE, 3MMJ .035 180CM 180CM Used *7501396 [id number] 14:59 NAMIC MANIFOLD, 4 PORT * Used *[id number] 14:59 [employer]ED OMNIPAQUE, 350 MG, 150ML 150ML [id number] Used [id number] 15:52 TERUMO MEDICAL SHEATH, FR6 TERUMO (10CM) FR 6 Used *[id number] Equipment Model, Serial, Lot Number and Expiration Data Description Model Number Serial Number Lot Number Expiration Date BALLOON, 1.5 X 15MM EUPHORA [id number] 03-03-2019 BALLOON, 2.0 X 12MM EUPHORA [id number] 03-23-2019 CATHETER, EXPORT ASPIRATON [id number] 04-20-2020 STENT, 2.0 12MM JINNY [id number] 02-15-2020 STENT, 2.0 30MM JINNY [id number] 02-04-2020 STENT, 2.0 30MM JINNY [id number] 02-04-2020 History: Current Medications Medication Dosage/Unit Route Frequency Last Date/Time Taken Imdur LIPITOR History: Allergies Allergy Reaction lisinopril Itching aspirin famotidine RASH metoprolol HALLUCINATIONS insulin detemir Diarrhea History: Risk Factors Family History of Hypertension Dyslipidemia Previous MO Previous Heart Failure Premature CAD Yes Yes No Yes No Prior Valve Prior PCI Prior PCIDate Prior CABG Prior CABGDate Surgery No Yes 11/22/2017 Yes 09/29/2018 Cerebrovascular Peripheral Artery Chronic Lung On Dialysis Diabetes Diabetes Therapy Disease Disease Disease No No No No Yes Insulin History: Stress Tests Stress or Imaging Studies Performed No History: Other Current Smoker No Labs Hgb (g/dl) Hct (%) WBC (l/cumm) Platelets (thousands) 11.60-17.00 35.00-51.00 4.00-11.00 150.00-450.00 11.8 34.3 7 236 Glucose (mg/dl) BUN (mg/dl) Creatinine (mg/dl) BUN:Creatinine (1:x) 74.00-106.00 7.00-18.00 0.50-1.30 10.00-20.00 127 8 1.0 8 Na (meq/l) K (meq/l) 136.00-145.00 3.50-5.10 143 3.6 INR (PTT:PT) 0.90-1.10 1.1 CPK-MB (ng/ML) 0.50-3.60 Not Drawn Medication Medication Total Dose (Bolus/Oral) Medication Total Dosage/Unit 1% XYLOCAINE 15 mL HEPARIN 86851 units NTG (IC) 450 mcg PLAVIX 600 mg Medications (Bolus/Oral) Medication Time Given Dosage/Unit Administered By Reason 1% XYLOCAINE 09/29/2018 3:51:44 PM 15 mL Chito Melissa 15 mL 1% XYLOCAINE given in lab by Chito Melissa in Right Groin via Subcutaneous. Ordered by Chito Carballo HEPARIN 09/29/2018 4:17:42 PM 5000 units Mini Younger 5000 units HEPARIN given in lab by Mini Younger RN via Peripheral IV. Ordered by El Melissa HEPARIN 09/29/2018 4:34:32 PM 5400 units Mini Younger 5400 units HEPARIN given in lab by Mini Younger RN via Peripheral IV. Ordered by El Melissa NTG (IC) 09/29/2018 4:40:39 PM 150 mcg Chito Melissa 150 mcg NTG (IC) given in lab by Chito Melissa via Intra-coronary. Ordered by Chito Melissa HEPARIN 09/29/2018 4:47:37 PM 2000 units Mini Younger 2000 units HEPARIN given in lab by Mini Younger, RN via Peripheral IV. Ordered by El Melissa NTG (IC) 09/29/2018 5:02:50 PM 150 mcg Chito Melissa 150 mcg NTG (IC) given in lab by Chito Melissa in Right Groin via Intra-coronary. NTG (IC) 09/29/2018 5:26:59 PM 150 mcg Chito Melissa 150 mcg NTG (IC) given in lab by Chito Melissa in Right Groin via Intra-coronary. PLAVIX 09/29/2018 6:11:48 PM 600 mg Lela Rivas 600 mg PLAVIX given in lab by Lela Rivas, GUZMAN via Oral. Ordered by Chito Melissa Medication (Drip) Medication Time Given Dosage/Unit Concentration/Unit Diluent (ml) Solution INSULIN (HUMAN) 09/29/2018 3:32:13 PM 0.8 mL/hr mL Patient arrived on 0.8 mL/hr INSULIN (HUMAN). Pump/Drip Flow = 0 ml/hr using [Solution Name]. IV Solutions 09/29/2018 3:32:15 PM 50 mL (IV) NaCl .9 IV Solutions given in lab by Lela Rivas, GUZMAN in Left Antecubital via Peripheral IV. Pump/Drip Temo w using NaCl .9. Ordered by Chito Melissa. NITROGLYCERIN DRIP 09/29/2018 3:47:23 PM 25 mcg/min 50 mg 250 D5W Patient arrived on 25 mcg/min NITROGLYCERIN DRIP via Peripheral IV. Pump/Drip Flow = 7.5 ml/hr using D5W with a concentration of 50 mg in 250 ml. NITROGLYCERIN DRIP 09/29/2018 3:50:08 PM 25 mcg/min 50 mg 250 D5W Patient arrived on 25 mcg/min NITROGLYCERIN DRIP via Peripheral IV. Pump/Drip Flow = 7.5 ml/hr using D5W with a concentration of 50 mg in 250 ml. Discontinued at 09/29/2018 15:50. Initial Case Assessment Cardiovascular HR NIBP 81 103/72 Edema Present Skin color Skin None Normal Warm Dry Circulatory - Right Pulses Dorsalis Pedis Femoral 1 1 Scale (0,1,2,3,4,d) Circulatory - Left Pulses Dorsalis Pedis Femoral 1 1 Scale (0,1,2,3,4,d) Neurological State Unresponsive Respiration - General Respiration Rate SpO2 (%) (B/min) 11 100 Respiration - Ventilator Type Intubation Type ET(oral) Respiration - Ventilator Settings TV (ml) IMV (L) FIO2 (%) PEEP (cm/H2O) 500 12 100 5 Chronological Log Time Study Chronological Log 15::23 Patient arrived via Bed. 15:26:25 Patient Name, D.O.B, / Armband Verified By R.N. 15:26:26 Consent signed by the physician and the patient and verified by the Aircraft Designer staff. 15:26:27 Pre-op and post- op instructions given; patient acknowledges understanding of instructions. 15:31:48 Patient has been NPO for More than 6Hrs. 15:31:49 Skin Breakdown- none 15:31:52 Patient Warmer Placed on the Table. 15:31:55 Disposable Defibrillator Pads Placed On Patient. 15:31:56 Flavio Prominences Protected 15:31:57 A # ~SIZE~ IV was noted in the Radial (left). Grade = ~GRADE~ 15:32:13 Patient arrived on 0.8 mL/hr INSULIN (HUMAN). Pump/Drip Flow = 0 ml/hr using [Solution Name ]. IV Solutions given in lab by Lela Rivas RN in Left Antecubital via Peripheral IV. Pump/Dr ip Flow using NaCl .9. 15:32:15 Ordered by Chito Melissa 15:32:16 History and physical on the chart or being dictated. Assessment: Initial Case, HR=81 BPM, VZZD=019/72 mmhg, Edema=None, Color=Normal, Skin = Warm, D ry Right Pulses: Tommy Ped=1, Femoral=1 15:32:17 Left Pulses: Tommy Ped=1, Femoral=1 Neurological: State=Unresponsive Respiration: Resp=11 B/min, AxX5=008 %, Type=ET(Oral), HI=691 mL, IMV=12 L, UGW3=948 %, PEEP=5 cm/H2O 15:38:42 A # ~SIZE~ IV was noted in the Jugular Vein (right). Grade = ~GRADE~ 15:38:43 A # 20 IV was noted in the Antecubital (left). Grade = 0 15:39:00 MD arrived. Vitals capture started with the following parameters, Patient=Adult, Interval=5 min, Initial Pr nukiri=099 mmHg, 15:39:10 Deflation Rate=5 mmHg, Cuff placed on Left Arm 15:39:44 HR=94 bpm, SCAE=478/68 mmhg, Resp=1 B/min 15:44:39 HR=80 bpm, BKCZ=942/72 mmhg, Resp=14 B/min Patient arrived on 25 mcg/min NITROGLYCERIN DRIP via Peripheral IV. Pump/Drip Flow = 7.5 ml/hr using D5W with a 15:47:23 concentration of 50 mg in 250 ml. 15:48:59 Bilateral groins prepped with 2% chlorhexidine, and draped after a 3 minute waiting time. 15:49:30 Pressure channel 1 zeroed. Time Out. Correct patient, correct procedure, correct physician, labs, allergies, and equipment verified with chemistry lab instructor 15:49:39 team present. Fire risk assesment completed (see hard stop sheet for coding). Time Out Conc urred by MD and individual staff in procedure. 15:49:42 HR=82 bpm, NIBP=98/61 mmhg, SpO2=58.0 %, Resp=14 B/min Patient arrived on 25 mcg/min NITROGLYCERIN DRIP via Peripheral IV. Pump/Drip Flow = 7.5 ml/hr using D5W with a 15:50:08 concentration of 50 mg in 250 ml. Discontinued at 09/29/2018 15:50. 15:51:42 Case Start 15 mL 1% XYLOCAINE given in lab by Chito Melissa in Right Groin via Subcutaneous. Ordered by Shin 15:51:44 Chito Anthony. 15:53:00 Reference ECG taken 15:53:03 Access site was Right Femoral Artery. A INTRODUCER SET, MICROPUNCTURE STIFF FR 5 was advanced into the Fem Art (right) using the Perc utaneous 15:53:08 technique. A SHEATH, FR6 TERUMO (10CM) FR 6 was exchanged in the Fem Art (right). This was necessary in or wan to 15:53:52 accomodate a larger catheter. 15:54:35 An injection in the Fem Art (right) was made through the SHEATH, FR6 TERUMO (10CM) FR 6. 15:54:41 HR=81 bpm, NIBP=98/65 mmhg, IgV4=547.0 %, Resp=13 B/min A JR 4.0 INFINITI CATHETER FR 5 was advanced over a wire. OMNIPAQUE, 350 MG, 150ML 150ML was us ed for 15:55:59 injections. Recorded Pressure: LV, HR=79, Condition=Condition 1 15:56:11 (Left Ventricle) LV 88/11/18 Recorded Pressure: LV, Ao, HR=77, Condition=Condition 1 15:56:22 (Left Ventricle) LV 92/12/19, (Aorta) Ao 92/61/75 15:57:08 The RCA was injected and visualized at various angles. OMNIPAQUE, 350 MG, 150ML 150ML used . 15:59:40 HR=80 bpm, NIBP=96/67 mmhg, Resp=13 B/min 16:01:54 The RAMEY-LAD was injected and visualized at various angles. OMNIPAQUE, 350 MG, 150ML 150ML used. 16:03:46 Catheter was removed A JL 4.0 INFINITI CATHETER FR 5 was advanced over a wire. OMNIPAQUE, 350 MG, 150ML 150ML was us ed for 16:03:48 injections. 16:04:43 HR=80 bpm, NIBP=92/57 mmhg, SpO2=98.0 %, Resp=16 B/min 16:06:54 Catheter was removed A MPA-2 INFINITI CATHETER FR 5 was advanced over a wire. OMNIPAQUE, 350 MG, 150ML 150ML was use d for 16:08:32 injections. 16:09:40 HR=77 bpm, XHLI=392/70 mmhg, SpO2=99.0 %, Resp=14 B/min After removing the current catheter a AR MOD INFINITI CATHETER FR 5 was advanced over a WIRE, 3 MMJ .035 180CM 16:12:45 180CM. 16:14:43 HR=79 bpm, NIBP=95/66 mmhg, OaV3=371.0 %, Resp=19 B/min 16:17:42 5000 units HEPARIN given in lab by Mini Younger, GUZMAN via Peripheral IV. Ordered by Chito Chou 16:19:26 blood sugar 153 16:19:43 HR=75 bpm, ENNY=401/60 mmhg, Resp=14 B/min After removing the current catheter a AL 1 INFINITI CATHETER FR 5 was advanced over a WIRE, 3MM J .035 180CM 16:20:50 180CM. 16:23:02 The SVG-OM was injected and visualized at various angles. OMNIPAQUE, 350 MG, 150ML 150ML us ed. 16:24:44 HR=80 bpm, BKPB=607/74 mmhg, Resp=15 B/min 16:27:55 Catheter was removed A EBU 3.5 Z2 GUIDE CATHETER FR 6 was advanced over a wire. OMNIPAQUE, 350 MG, 150ML 150ML was u sed for 16:29:08 injections. 16:29:43 HR=79 bpm, TDZP=614/75 mmhg, Resp=18 B/min 16:32:24 A WIRE, BALANCE MIDDLEWEIGHT 190CM 190CM was inserted via Fem Art (right). 16:33:08 ACT (Normal Range 90-180) = 132 16:34:11 Interventional wire has crossed the lesion 16:34:32 5400 units HEPARIN given in lab by Mini Younger, GUZMAN via Peripheral IV. Ordered by Chito Chou. 16:34:44 HR=80 bpm, PPQU=234/74 mmhg, Resp=16 B/min A BALLOON, 2.0 X 12MM EUPHORA 12MM was inserted over WIRE, BALANCE MIDDLEWEIGHT 190CM 190CM via the 16:35:26 Fem Art (right). A BALLOON, 2.0 X 12MM EUPHORA 12MM over a WIRE, BALANCE MIDDLEWEIGHT 190CM 190CM in the OM1 Mid was 16:35:33 inflated using a 30 RAQUEL INDEFLATOR at 8 raquel for 10 sec. 16:38:52 Balloon Removed. 16:39:49 HR=82 bpm, ISSQ=503/60 mmhg, Resp=20 B/min 16:40:36 Activated Clotting Time Drawn 16:40:39 150 mcg NTG (IC) given in lab by Chito Melissa via Intra-coronary. Ordered by Chito Mendiola. 16:44:48 HR=77 bpm, QJTJ=051/71 mmhg, ChM9=393.0 %, Resp=18 B/min A BALLOON, 1.5 X 10MM EUPHORA 10MM was inserted over WIRE, BALANCE MIDDLEWEIGHT 190CM 190CM via the 16:44:59 Fem Art (right). 16:45:15 ACT (Normal Range 90-180) = 257 A BALLOON, 1.5 X 10MM EUPHORA 10MM over a WIRE, BALANCE MIDDLEWEIGHT 190CM 190CM in the OM1 Mid was 16:45:22 inflated using a 30 RAQUEL INDEFLATOR at 10 raquel for 12 sec. A BALLOON, 1.5 X 10MM EUPHORA 10MM over a WIRE, BALANCE MIDDLEWEIGHT 190CM 190CM in the OM1 Mid was 16:46:09 inflated using a 30 RAQUEL INDEFLATOR at 10 raquel for 12 sec. A BALLOON, 1.5 X 10MM EUPHORA 10MM over a WIRE, BALANCE MIDDLEWEIGHT 190CM 190CM in the OM1 Mid was 16:46:32 inflated using a 30 RAQUEL INDEFLATOR at 10 raquel for 12 sec. A BALLOON, 1.5 X 10MM EUPHORA 10MM over a WIRE, BALANCE MIDDLEWEIGHT 190CM 190CM in the OM1 Mid was 16:46:54 inflated using a 30 RAQUEL INDEFLATOR at 10 raquel for 12 sec. 16:47:37 2000 units HEPARIN given in lab by Mini Younger, GUZMAN via Peripheral IV. Ordered by Cihto Chou 16:48:07 Balloon Removed. A BALLOON, 2.0 X 30MM EUPHORA 30MM was inserted over WIRE, BALANCE MIDDLEWEIGHT 190CM 190CM via the 16:49:19 Fem Art (right). A BALLOON, 2.0 X 30MM EUPHORA 30MM over a WIRE, BALANCE MIDDLEWEIGHT 190CM 190CM in the OM1 Mid was 16:49:32 inflated using a 30 RAQUEL INDEFLATOR at 10 raquel for 20 sec. 16:49:45 HR=85 bpm, WQTS=386/76 mmhg, OjS9=703 %, Resp=16 B/min A BALLOON, 2.0 X 30MM EUPHORA 30MM over a WIRE, BALANCE MIDDLEWEIGHT 190CM 190CM in the OM1 Mid was 16:50:10 inflated using a 30 RAQUEL INDEFLATOR at 10 raquel for 10 sec. 16:50:18 Balloon Removed. A STENT, 2.0 30MM JINNY 2.0 X 30MM was advanced through a EBU 3.5 Z2 GUIDE CATHETER FR 6 over a WIRE, 16:52:17 BALANCE MIDDLEWEIGHT 190CM 190CM. A STENT, 2.0 30MM JINNY 2.0 X 30MM was deployed using a 30 RAQUEL INDEFLATOR at 12 atmospheres for 30 seconds 16:52:32 in the OM1 Mid. 16:54:48 HR=76 bpm, UHVH=414/74 mmhg, EsE7=051.0 %, Resp=13 B/min 16:55:12 Delivery device removed 16:55:17 Activated Clotting Time Drawn A STENT, 2.0 12MM JINNY 2.0 X 12MM was advanced through a EBU 3.5 Z2 GUIDE CATHETER FR 6 over a WIRE, 16:57:42 BALANCE MIDDLEWEIGHT 190CM 190CM. A STENT, 2.0 12MM JINNY 2.0 X 12MM was deployed using a 30 RAQUEL INDEFLATOR at 14 atmospheres for 30 seconds 16:57:54 in the OM1 Mid. A STENT, 2.0 12MM JINNY 2.0 X 12MM was deployed using a 30 RAQUEL INDEFLATOR at 16 atmospheres for 20 seconds 16:58:12 in the OM1 Mid. 16:59:47 HR=82 bpm, IGXI=958/76 mmhg, TsU8=587.0 %, Resp=17 B/min 17:00:31 Delivery device removed A BALLOON, 2.0 X 20MM NC EUPHORA 20MM was inserted over WIRE, BALANCE MIDDLEWEIGHT 190CM 190CM via 17:00:33 the Fem Art (right). A BALLOON, 2.0 X 20MM NC EUPHORA 20MM over a WIRE, BALANCE MIDDLEWEIGHT 190CM 190CM in the OM1 Mid 17:01:10 was inflated using a 30 RAQUEL INDEFLATOR at 14 raquel for 10 sec. A BALLOON, 2.0 X 20MM NC EUPHORA 20MM over a WIRE, BALANCE MIDDLEWEIGHT 190CM 190CM in the OM1 Mid 17:01:58 was inflated using a 30 RAQUEL INDEFLATOR at 24 raquel for 10 sec. 17:02:42 Balloon Removed. 17:02:50 150 mcg NTG (IC) given in lab by Chito Melissa in Right Groin via Intra-coronary. 17:02:54 ACT failed, redrawn. 17:03:04 Activated Clotting Time Drawn 17:04:52 HR=86 bpm, NIBP=89/56 mmhg, MpU0=419 %, Resp=17 B/min 17:05:33 Wire redirected to OM2 A BALLOON, 1.5 X 10MM EUPHORA 10MM was inserted over WIRE, BALANCE MIDDLEWEIGHT 190CM 190CM via the 17:08:31 Fem Art (right). 17:09:07 ACT (Normal Range 90-180) = 306 A BALLOON, 1.5 X 10MM EUPHORA 10MM over a WIRE, BALANCE MIDDLEWEIGHT 190CM 190CM in the OM2 Mid was 17:09:36 inflated using a 30 RAQUEL INDEFLATOR at 10 raquel for 10 sec. 17:10:20 HR=85 bpm, CYKA=624/72 mmhg, AmO2=568 %, Resp=18 B/min 17:12:50 Balloon Removed. A BALLOON, 1.5 X 15MM EUPHORA 15MM was inserted over WIRE, BALANCE MIDDLEWEIGHT 190CM 190CM via the 17:12:52 Fem Art (right). A BALLOON, 1.5 X 15MM EUPHORA 15MM over a WIRE, BALANCE MIDDLEWEIGHT 190CM 190CM in the OM2 Mid was 17:14:04 inflated using a 30 RAQUEL INDEFLATOR at 12 raquel for 30 sec. A BALLOON, 1.5 X 15MM EUPHORA 15MM over a WIRE, BALANCE MIDDLEWEIGHT 190CM 190CM in the OM2 Mid was 17:14:41 inflated using a 30 RAQUEL INDEFLATOR at 14 raquel for 30 sec. 17:14:48 HR=81 bpm, GWDM=650/77 mmhg, VyE8=107.0 %, Resp=17 B/min A BALLOON, 1.5 X 15MM EUPHORA 15MM over a WIRE, BALANCE MIDDLEWEIGHT 190CM 190CM in the OM2 Mid was 17:15:30 inflated using a 30 RAQUEL INDEFLATOR at 18 raquel for 30 sec. 17:19:51 HR=83 bpm, LZEZ=448/74 mmhg, GpY0=182 %, Resp=17 B/min 17:20:00 Balloon Removed. A STENT, 2.0 30MM JINNY 2.0 X 30MM was advanced through a EBU 3.5 Z2 GUIDE CATHETER FR 6 over a WIRE, 17:22:18 BALANCE MIDDLEWEIGHT 190CM 190CM. A STENT, 2.0 30MM JINNY 2.0 X 30MM was deployed using a 30 RAQUEL INDEFLATOR at 16 atmospheres for 30 seconds 17:22:48 in the CIRC Mid. 17:23:39 Delivery device removed 17:24:27 Activated Clotting Time Drawn 17:24:50 HR=82 bpm, YOFU=773/78 mmhg, SxU7=778.0 %, Resp=16 B/min A BALLOON, 2.0 X 20MM NC EUPHORA 20MM was inserted over WIRE, BALANCE MIDDLEWEIGHT 190CM 190CM via 17:25:40 the Fem Art (right). A BALLOON, 2.0 X 20MM NC EUPHORA 20MM over a WIRE, BALANCE MIDDLEWEIGHT 190CM 190CM in the CIRC Mid 17:25:49 was inflated using a 30 RAQUEL INDEFLATOR at 16 raquel for 20 sec. A BALLOON, 2.0 X 20MM NC EUPHORA 20MM over a WIRE, BALANCE MIDDLEWEIGHT 190CM 190CM in the CIRC Mid 17:26:06 was inflated using a 30 RAQUEL INDEFLATOR at 20 raquel for 15 sec. 17:26:45 Balloon Removed. 17:26:59 150 mcg NTG (IC) given in lab by Chito Melissa in Right Groin via Intra-coronary. 17:29:26 Wire removed 17:29:54 HR=84 bpm, NIBP=98/73 mmhg, UeP3=368 %, Resp=16 B/min 17:30:07 A WIRE, BALANCE MIDDLEWEIGHT 190CM 190CM was inserted via Fem Art (right) into LAD. 17:30:32 ACT (Normal Range 90-180) = 332 17:34:50 HR=82 bpm, PVMN=591/77 mmhg, EoN4=177 %, Resp=17 B/min 17:35:05 A CATHETER, EXPORT ASPIRATON was advanced over a wire. 17:37:08 Aspiration in progress 17:39:11 Charlotte Catheter was removed 17:39:54 HR=84 bpm, PSZX=543/75 mmhg, QfU2=768.0 %, Resp=13 B/min 17:40:34 A CATHETER, EXPORT ASPIRATON was advanced over a wire. 17:43:12 Aspiration in progress 17:44:55 HR=77 bpm, VSYB=118/73 mmhg, QhX7=119.0 %, Resp=16 B/min 17:45:35 Charlotte Catheter was removed 17:49:56 HR=84 bpm, FJHE=203/78 mmhg, HvN6=084.0 %, Resp=16 B/min 17:51:29 Rewired to OM2 A BALLOON, 1.5 X 15MM EUPHORA 15MM was inserted over WIRE, BALANCE MIDDLEWEIGHT 190CM 190CM via the 17:52:28 Fem Art (right). 17:53:12 Activated Clotting Time Drawn 17:55:03 HR=59 bpm, NIBP=77/44 mmhg, EvB7=488 %, Resp=17 B/min 17:55:45 NIBP STAT measurement started. 17:56:41 HR=78 bpm, NIBP=96/68 mmhg, HuF9=130 %, Resp=16 B/min 17:56:48 Balloon Removed. 17:58:54 Wire removed 17:58:56 Catheter was removed 17:58:57 ACT (Normal Range 90-180) = 266 17:59:24 Case End (Physician broke scrub) 17:59:56 HR=83 bpm, ILSY=254/66 mmhg, IfM3=741 %, Resp=13 B/min 18:04:55 HR=65 bpm, YQHO=843/82 mmhg, AfM4=447 %, Resp=17 B/min 18:09:50 In the Fem Art (right) the SHEATH, FR6 TERUMO (10CM) FR [address] by Chito Melissa. 18:10:00 HR=84 bpm, TBPR=375/79 mmhg, RzX0=948 %, Resp=15 B/min 18:10:08 Sterile dressing applied to site 18:10:19 Cine recording checked. 18:10:26 Bedside Report will be given. 18:10:29 Implantable Device card placed in patient's chart. 18:10:38 A Left Heart Cath was performed. 18:11:13 Vitals capture stopped. 18:11:48 600 mg PLAVIX given in lab by Lela Rivas, GUZMAN via Oral. Ordered by Chito Melissa . 18:18:55 Patient moved to bed End Study - Contrast Media Used In Study Contrast Total Opened (mL) Total Used (mL) Total Wasted (mL) Omnipaque 300 260 40 End Study - Maximum Contrast Load Max Contrast Load (mL) 384.1 End Study - Radiation Exposure Fluoro Time (minutes) 38.0 End Study - Patient Disposition Complications Transferred To Interventional Outcome No Critical Care Bed a partial success
[2018-09-29] MEDS ORDERED: Mag Sulf 1 gm/100 ml Premix 200 ML IV.SIG ONE (18:43)
[2018-09-29] MEDS: Albumin Human 5% Inj 250 ML IV.SIG PRN (19:03)
[2018-09-29] MEDS: Calcium Chloride Inj 1 GM in Sodium Chlor 0.9% Inj 100 ML IV.SIG PRN (19:04)
--- NOTE | 2018-09-29 19:38 | P.CONCC ---
History of Present Illness Service: Critical Care Medicine Consult date: 09/29/18 Requesting Physician: Ernesto Campos Reason for Consult: hemodynamic management Primary Care Provider: UNKNOWN Chief Complaint: Chest pain History of Present Illness: This is a 58yF with history of CAD who underwent off-pump CABG x 4 (RAMEY-->LAD, SVG-->OM1, SVG-->OM2, SVG-->PDA). intra-operatively it was noted that she had significant ST elevations. immediately post-operatively, it was noted that she had tombstoning on her EKG. She was taken emergently to the corn lab technician by Dr. Melissa where she had completely occluded grafts. He stented OM1, LAD. balloon angiopasty to OM2. She arrives back to the CVICU where I met her. She has had 4L crystalloid resuscitation. chest tubes have about 100cc sanguinous output. Of note, she was on a tranexamic acid infusion during the CABG which was started by anesthesia. the patient is intubated and no additional information is available from the patient. ROS unobtainable. I discussed the case with Dr. Melissa and Dr. Campos at bedside: plan to initiate heparin infusion 4 hours post-arterial sheath pull. I also discussed re-evaluation of LV function. Dr. Melissa and I performed HAKAN at bedside which demonstrated lateral and inferolateral hypokinesis, EF 45%, mild TR. Review of Systems unobtainable due to endotracheal tube, unobtainable due to mental condition PMFSH - History History Provided By: Medical Record - Medical History Medical History: Medical History (Last Reviewed 09/29/18 @ 23:20 by Waqas Enriquez MD) MDRO (multiple drug resistant organisms) resistance Onset Date: ~09/25/18 - Family History Family History: Family History (Last Updated 09/29/18 @ 23:20 by Waqas Enriquez MD) Other Family history non-contributory - Social History I have reviewed the patient's Social History: Yes - Tobacco History Second Hand Smoke Exposure: No Smoking Status: Never smoker - Alcohol History How Often Do You Have a Drink Containing Alcohol: Never - Substance Use History Substance History: No History of Abuse - Travel History Recent Travel in the [place] Within the Last 8 Weeks: No Recent Travel Out of the Country Within the Last 8 Weeks: No - Immunization History Tetanus Immunization: Unsure Medications and Allergies Active Medications: Active Medications Acetaminophen (Tylenol) 650 mg PO Q4H PRN PRN Reason: Temp > 100.4 Last Admin: 09/27/18 22:28 Dose: 650 mg Hydrocodone Bitart/Acetaminophen ([place] 5/325) 1 tab PO Q3H PRN PRN Reason: PAIN SCALE 1 TO 5 Al Hydroxide/Mg Hydroxide (Milk Of Magnesia Liq) 30 ml PO Q12H PRN PRN Reason: Mild Constipation Albuterol (Duoneb Neb (Prn)) 1 ampul NEB Q2HR NEB PRN PRN Reason: WHEEZING Albuterol (Duoneb Neb (Estelle)) 1 ampul NEB Q6HR NEB ESTELLE Amiodarone HCl (Cordarone) 200 mg PO Q12HR ESTELLE Aspirin (Aspirin Chew) 81 mg PO DAILY [facility] Atorvastatin Calcium (Lipitor) 20 mg PO HS [facility] Last Admin: 09/28/18 22:11 Dose: 20 mg Bisacodyl (Dulcolax Supp) 10 mg RECTAL DAILY PRN PRN Reason: SEVERE CONSITIPATION Calcium Chloride (Calcium Chloride Inj) 0.5 gm IV.PUSH UNSCH PRN PRN Reason: SEE LABEL COMMENTS Chlorhexidine Gluconate (Hibiclens 4% Topical) 1 applicatio TOPICAL CLERK CARRIER [facility] Stop: 10/01/18 10:12 Clopidogrel Bisulfate (Plavix) 75 mg PO DAILY [facility] Sodium Chloride 77.5 ml/Papaverine HCl 60 mg/Nitroglycerin 100 mcg/Diltiazem HCl 100 mg 0 ml IRRIGATION CLERK CARRIER [facility] Stop: 10/01/18 10:12 Last Admin: 09/29/18 09:57 Dose: 1 bag Sodium Chloride 500 ml/ (Cefazolin Sodium 500 mg) 0 ml IRRIGATION CLERK CARRIER [facility] Stop: 10/01/18 10:14 Last Admin: 09/29/18 09:58 Dose: 1 irrig.soln Dextrose (D50w Vial) 50 ml IV.PUSH UNSCH PRN PRN Reason: PER HYPOGLYCEMIA PROTOCOL Epinephrine (Racepinephrine 2.25% Neb) 0.5 ml NEB UNSCH X1 PRN PRN Reason: STRIDOR Fentanyl Citrate (Fentanyl Inj) 25 mcg IV.PUSH Q1H PRN PRN Reason: BREAKTHROUGH PAIN Heparin Sodium/Dextrose (Heparin/D5w 25,000 U/250 Ml) 25,000 unit in 250 mls @ 0 mls/hr IV.CONT TITRATE PRN; Protocol PRN Reason: Per Protocol Last Titration: 09/29/18 05:30 Dose: Infused Insulin Human Regular 100 unit (/ Sodium Chloride) 100 mls @ 3 mls/hr IV.CONT TITRATE PRN; Protocol PRN Reason: See Protocol Acetaminophen (Ofirmev Inj) 1,000 mg in 100 mls @ 400 mls/hr IV.SIG Q6H ESTELLE Stop: 09/30/18 09:14 Albumin Human (Buminate 5% Inj) 250 mls @ 250 mls/hr IV.SIG UNSCH PRN PRN Reason: SEE LABEL COMMENTS Last Admin: 09/29/18 19:03 Dose: 250 mls/hr Calcium Chloride 1 gm/ Sodium (Chloride) 110 mls @ 100 mls/hr IV.SIG PRN PRN PRN Reason: SEE LABEL COMMENTS Last Admin: 09/29/18 19:04 Dose: 100 mls/hr Clevidipine (Cleviprex Inj) 25 mg in 50 mls @ 2 mls/hr IV.CONT TITRATE PRN; Protocol PRN Reason: Per protocol Dexmedetomidine HCl 200 mcg/ (Sodium Chloride) 50 mls @ 3.85 mls/hr IV.CONT TITRATE PRN; Protocol PRN Reason: Per Protocol Insulin Human Regular 100 unit (/ Sodium Chloride) 100 mls @ 3 mls/hr IV.CONT TITRATE PRN; Protocol PRN Reason: See Protocol Lactated Ringer's (Lr 1000 Ml Inj) 500 mls @ 500 mls/hr IV.SIG .Q1H PRN PRN Reason: SEE LABEL COMMENTS Magnesium Sulfate 2 gm/ Sodium (Chloride) 100 mls @ 50 mls/hr IV.SIG PRN PRN PRN Reason: SEE LABEL COMMENTS Magnesium Sulfate 2 gm/ Sodium (Chloride) 100 mls @ 50 mls/hr IV.SIG PRN PRN PRN Reason: SEE LABEL COMMENTS Phenylephrine HCl 40 mg/ (Sodium Chloride) 500 mls @ 30 mls/hr IV.CONT TITRATE PRN; Protocol PRN Reason: See Protocol Potassium Chloride (Kcl 20 Meq Premix Inj) 20 meq in 100 mls @ 50 mls/hr IV.SIG PRN PRN PRN Reason: SEE LABEL COMMENTS Potassium Chloride (Kcl 20 Meq Premix Inj) 20 meq in 100 mls @ 50 mls/hr IV.SIG PRN PRN PRN Reason: SEE LABEL COMMENTS Potassium Chloride (Kcl 20 Meq Premix Inj) 20 meq in 100 mls @ 50 mls/hr IV.SIG PRN PRN PRN Reason: SEE LABEL COMMENTS Cefazolin Sodium/Dextrose (Ancef 2 Gm Premix Inj) 2 gm in 50 mls @ 100 mls/hr IV.SIG Q8H [facility] Stop: 10/01/18 01:29 Insulin Aspart (Novolog Insulin Correctional Sugar Inj) 20 unit SQ TIDAC [facility]; Protocol Last Admin: 09/28/18 17:50 Dose: 20 unit Insulin Aspart (Novolog Insulin Correctional Sugar Inj) 0 unit SQ 08,12,17,21, 03 [facility]; Protocol Last Admin: 09/29/18 05:46 Dose: Not Given Insulin Glargine (Lantus Inj) 38 units SQ [facility] Last Admin: 09/28/18 22:12 Dose: 38 units Isosorbide Mononitrate (Imdur) 30 mg PO DAILY [facility] Last Admin: 09/28/18 09:30 Dose: 30 mg Ketorolac Tromethamine (Toradol Inj) 15 mg IV.PUSH Q6H PRN PRN Reason: SEE LABEL COMMENTS Stop: 10/01/18 13:34 Lactulose (Lactulose Liq) 30 ml PO DAILY PRN PRN Reason: SEVERE CONSITIPATION Meperidine HCl (Demerol Inj) 12.5 mg IV.PUSH Q4H PRN PRN Reason: SHIVERING Metoprolol Tartrate (Lopressor) 12.5 mg PO CLERK CARRIER [facility] Stop: 10/01/18 10:15 Morphine Sulfate (Morphine Inj) 2 mg IV.PUSH Q4H PRN PRN Reason: PAIN 6-10 Morphine Sulfate (Morphine Inj) 1 mg IV.PUSH Q10M PRN PRN Reason: PAIN SCALE 1 TO 5 Ondansetron HCl (Zofran Inj) 4 mg IV.PUSH Q6H PRN PRN Reason: NAUSEA OR VOMITING Pantoprazole Sodium (Protonix) 40 mg PO DAILY@06 [facility] Phenylephrine HCl (Neosynephrine Inj) 0.1 mg IV.PUSH UNSCH PRN PRN Reason: SEE LABEL COMMENTS Potassium Chloride (K-Dur) 20 meq PO UNSCH PRN PRN Reason: SEE LABEL COMMENTS Potassium Chloride (K-Dur) 40 meq PO UNSCH PRN PRN Reason: SEE LABEL COMMENTS Ranolazine (Ranexa) 500 mg PO Q12H [facility] Last Admin: 09/28/18 22:09 Dose: 500 mg Senna/Docusate Sodium (Jacqui-Colace) 1 tab PO BID [facility] Last Admin: 09/28/18 22:10 Dose: Not Given Sennosides (Senokot) 17.2 mg PO Q12H PRN PRN Reason: Moderate Constipation Sertraline HCl (Zoloft) 50 mg PO DAILY [facility] Last Admin: 09/28/18 09:30 Dose: 50 mg Sodium Bicarbonate (Sodium Bicarbonate 8.4% Inj) 50 meq IV.PUSH UNSCH PRN PRN Reason: SEE LABEL COMMENTS Sodium Bicarbonate (Sodium Bicarbonate 8.4% Inj) 100 meq IV.PUSH UNSCH PRN PRN Reason: SEE LABEL COMMENTS Sodium Chloride (Ns Flush) 2 ml IV.FLUSH BID [facility] Last Admin: 09/28/18 22:16 Dose: 2 ml Sodium Chloride (Ns Flush) 2 ml IV.FLUSH PRN PRN PRN Reason: FLUSH AFTER USING IV ACCESS Temazepam (Restoril) 7.5 mg PO HS [facility] Last Admin: 09/28/18 22:18 Dose: Not Given Terbutaline Sulfate (Brethine Inj) 1 mg SQ ONCE PRN PRN Reason: Extravasation Terbutaline Sulfate (Brethine Inj) 1 mg SQ UNSCH PRN PRN Reason: For Extravasation Terbutaline Sulfate (Brethine Inj) 1 mg SQ UNSCH PRN PRN Reason: For Extravasation Allergies Allergy/AdvReac Type Severity Reaction Status Date / Time metoprolol Allergy Severe HALLUCINATI Verified 09/23/18 22:25 ONS famotidine Allergy Unknown RASH Verified 09/23/18 22:25 lisinopril Allergy Unknown Itching Verified 09/23/18 22:25 insulin detemir AdvReac Unknown Diarrhea Verified 09/23/18 22:25 Home Medications Medication Instructions Recorded Confirmed Type aspirin [Aspir-81] 81 mg PO DAILY 08/03/18 09/24/18 History atorvastatin 20 mg PO DAILY 08/03/18 09/24/18 History insulin glargine [Lantus U-100 25 unit SUB-Q DAILY 08/03/18 09/24/18 History Insulin] insulin lispro [Humalog U-100 45 unit SUB-Q DAILY 08/03/18 09/24/18 History Insulin] isosorbide mononitrate 30 mg PO QAM 08/03/18 09/24/18 History methocarbamol 500 mg PO QID 08/03/18 09/24/18 History nitroglycerin 0.3 mg SUBLINGUAL Q5-15M PRN 08/03/18 09/24/18 History sertraline 50 mg PO DAILY 08/03/18 09/24/18 History temazepam 7.5 mg PO HS 08/03/18 09/24/18 History ticagrelor [Brilinta] 90 mg PO BID 08/03/18 09/24/18 History Physical Exam Vital signs: Vital Signs 09/28/18 20:00 09/28/18 21:00 09/28/18 22:00 Temperature 37.1 C Pulse Rate 77 77 63 Respiratory Rate 16 Blood Pressure 149/85 H Pulse Oximetry 96 09/28/18 23:00 09/29/18 00:00 09/29/18 01:00 Temperature 36.9 C Pulse Rate 67 82 76 Respiratory Rate 16 Blood Pressure 131/79 Pulse Oximetry 97 09/29/18 02:00 09/29/18 03:00 09/29/18 04:00 Temperature 36.6 C Pulse Rate 78 73 79 Respiratory Rate 16 Blood Pressure 154/79 H Pulse Oximetry 98 09/29/18 05:00 09/29/18 05:45 09/29/18 13:55 Temperature Pulse Rate 68 67 Respiratory Rate 10 L Blood Pressure Pulse Oximetry 94 L 09/29/18 14:45 09/29/18 14:46 09/29/18 18:30 Temperature 36.9 C Pulse Rate 84 80 Respiratory Rate 10 L 15 Blood Pressure 112/65 Pulse Oximetry 95 99 09/29/18 18:32 09/29/18 18:47 Temperature 36.4 C Pulse Rate 82 Respiratory Rate 20 Blood Pressure 117/67 Pulse Oximetry 100 Intake & Output 09/29/18 09/29/18 09/30/18 06:59 18:59 06:59 Intake Total 760 / 760 3360 / 3360 Output Total 2450 / 2450 1600 / 1600 1910 / 1910 Balance -1690 / -1690 1760 / 1760 -191 / -1910 Weight 77 kg Intake: IV 80 / 80 110 / 110 Heparin/NS PF Inj 1,000 ML @ 0 10 / 10 mls/hr .ROUTE .[facility] Rx#: [id number] Heparin/D5W 25,000 U/250 mL 25, 80 / 80 000 unit In 250 ml @ Per Protocol IV.CONT TITRATE PRN Rx #:[id number] Ancef 1 GM Premix Inj 1 gm In 50 / 50 50 ml @ 0 mls/hr IV.SIG .[facility]- [facility] Rx#:[id number] Ancef 2 GM Premix Inj 2 gm In 50 / 50 50 ml @ 200 mls/hr IV.SIG CLERK CARRIER [facility] Rx#:[id number] Oral 680 / 680 Anesthesia Amount 3000 / 3000 Cell Saver Amount 250 / 250 Output: Urine 2450 / 2450 Estimated Blood Loss 750 / 750 Urine Amount (Catheter) 850 / 850 1800 / 1800 Indwelling Temp Sensing 850 / 850 1800 / 1800 Catheter Chest Tube Drainage 110 / 110 Pleural/Mediastinal 110 / 110 Other: Date of Last Bowel Movement 09/28/18 # Bowel Movements 1 Narrative: GENERAL: middle-aged female, lying in bed, intubated, sedated, critically ill. HEENT: nc. at. pupils are 2mm, equal reactive and conjugate. mmm. NECK: no jvd. venous sheath in place, site c/d/i. CARDIOVASCULAR: normal rate, regular rhythm. sinus. CVP 13. RESPIRATORY: PRVC. fio2 80%. peep 5. equal chest rise. midline sternal wound with vac dressing in place. 2 chest tubes exit subxiphoid, 100cc sanguinous output. GASTROINTESTINAL: Abdomen soft, non-tender, nondistended. no guarding. MUSCULOSKELETAL: Extremities without clubbing, cyanosis, or edema. LLE wrapped in MARYANN bandage. NEUROLOGICAL: RASS -4. withdraws x 4. does not follow commands. intubated, sedated. - Urinary Catheter Management Indwelling Temp Sensing Catheter Cath placed during this visit: yes Reason for continuing: Hourly intake/output Insertion date: 09/29/18 Insertion time: 08:30 Assessment and Plan - Assessment and Plan Plan: Assessment: 58yF POD 0 s/p off-pump CABG x 4 (RAMEY-->LAD, SVG-->OM1, SVG-->OM2, SVG-->PDA), complicated by immediate graft thrombosis and perioperative STEMI. Remains critically ill. Neuro: - continue precedex - frequent neuro checks - avoid long-acting sedatives - will not wean sedation tonight- too critically ill. Resp: - keep intubated overnight - wean fio2 for goal spo2 > 90% - no SBT - nebs - vent bundle - hob elevated CV: s/p off-pump CABG x 4 (RAMEY-->LAD, SVG-->OM1, SVG-->OM2, SVG-->PDA) 09/29 Immediate post-op STEMI Post-op Graft thrombosis Cardiogenic shock - trend lactates - ivf resuscitation - anticoagulation as described in the Heme section - ASA/Plavix - amiodarone - HAKAN post-op: EF 45%, lateral and inferolateral hypokinesis, mild TR - chest tubes to suction Renal: - continue woods - q1h uop FEN/GI: - NPO - OG tube to LIWS - ICU electrolyte protocol - daily bmp, mg, phos Heme/ID: Hypercoagulable State Acute graft thrombosis - unclear etiology, but clearly appears to be an acute pro-thrombotic state - She does not have thrombocytopenia, but HIT must be included in the differential diagnosis for acute multiple areas of thrombosis. I have discussed this extensively with Dr. Melissa and Dr. Campos. platelets are not falling. fibrinogen remains high. LDH mildly elevated, but difficult to discern in the setting of recent CABG. Clearly the patient needs anticoagulation to prevent further thrombosis. Argatroban in the setting of immediate post-CABG has a high risk of significant bleeding and is not without significant risk. At this point, we decided as a team to send HIT abs and YARITZA, but to continue heparin infusion, as risk of HIT does appear to be quite low, but risk of argatroban immediately post-op is quite high. - f/u HIT, YARITZA - restart heparin drip 4 hours after arterial sheath pull - follow CBC, coags, fibrinogen - d/c Tranexamic acid. - perioperative abx per Dr. Campos Endo: Post-operative hyperglycemia - insulin drip transitioning to SSI tomorrow Prophylaxis: - SCDs - heparin drip as above - ppi Lines: - 09/29 introducer sheath - 09/29 art line - 09/29 woods - 09/29 femoral arterial sheath: will d/c tonight. Dispo: - remain in ICU. Critical care will continue to follow while patient remains in the CVICU. Critical care time: 94 minutes, exclusive of separately billable procedures.
--- NOTE | 2018-09-29 19:39 | P.PCN ---
Date of procedure: 09/29/18 Pre-op diagnosis: acute coronary syndrome Post-op diagnosis: same Procedure: Procedure: Transesophageal Echocardiography Diagnosis: STEMI Indications: Need to evaluate wall motion abnormalities Consent: Emergent Anesthesia: Precedex IV Description of the Procedure: The patient was sedated and mechanically ventilated. The echo probe was inserted easily and without resistance. At the conclusion of the procedure, the echo probe was removed. Please see detailed echocardiogram report for formal findings. Preliminary Findings (not confirmed): 1) mildly depressed LVEF, estimated at 45% 2) Normal RV size and function 3) mild Tricuspid Regurgitation 4) no mitral regurgitation 5) no aortic stenosis or regurgitation 6) hypokinesis of the lateral and inferolateral glass 7) No evidence of left atrial thrombus 8) no evidence of left atrial hypertension by pulmonary vein flows 9) no pericardial effusion 10) no evidence of intra-atrial shunting by color flow Doppler The patient tolerated the procedure well with no hemodynamic instability. There were no immediate complications noted. There was minimal EBL. I personally performed the procedure.
[2018-09-29 19:52] LABS: Hematocrit 30.5 % (35.0-46.0); Hemoglobin 10.2 gm/dL (11.6-15.3); Mean Corpuscular HGB Conc 33.5 % (32.0-36.0); Mean Corpuscular Hemoglobin 28.6 pg (27.0-34.0); Mean Corpuscular Volume 85.4 fL (80.0-100.0); Mean Platelet Volume 8.3 fL (7.0-11.0); Platelet Count 205 th/mm3 (150-450); Red Blood Count 3.57 mil/mm3 (4.00-5.30); Red Cell Distribution Width 14.7 % (11.6-17.2); White Blood Count 10.9 th/mm3 (4.0-11.0)
[2018-09-29 20:01] LABS: INR 1.1 Ratio; Prothrombin Time 11.6 sec (9.8-11.6)
[2018-09-29 20:35] LABS: Activated Partial Thrombo Time 130.5 sec (23.4-31.7)
[2018-09-29] MEDS: Amiodarone 200 MG Tablet PO SCH (21:27)
[2018-09-29] MEDS: Senna/Docusate Sodium 8.6/50 MG Tablet PO SCH (21:28)
[2018-09-29] MEDS: ceFAZolin 2 GM Premix Inj 2 GM/50 ML PIGGYBACK IV.SIG SCH (21:29)
[2018-09-29] MEDS: Insulin Glargine Inj 1,000 UNITS/10 ML Vial SQ SCH (21:31)
[2018-09-29] MEDS: Ranolazine 500 MG 12HR ER Tablet PO SCH (21:49)
[2018-09-29] MEDS: Sodium Chloride 0.9% 2 ML Flush BID IV.FLUSH SCH (22:58)
--- NOTE | 2018-09-30 00:33 | P.PNCA ---
Subjective Interval history: Called by Dr. Campos post-CABG ST elevations noted during CABG EKG showing inferolateral ST elevations appearing to be infarction Medications and Allergies Active Medications: Active Medications Acetaminophen (Tylenol) 650 mg PO Q4H PRN PRN Reason: Temp > 100.4 Last Admin: 09/27/18 22:28 Dose: 650 mg Hydrocodone Bitart/Acetaminophen (Dumas 5/325) 1 tab PO Q3H PRN PRN Reason: PAIN SCALE 1 TO 5 Al Hydroxide/Mg Hydroxide (Milk Of Magntriston Liq) 30 ml PO Q12H PRN PRN Reason: Mild Constipation Albuterol (Duoneb Neb (Prn)) 1 ampul NEB Q2HR NEB PRN PRN Reason: WHEEZING Albuterol (Duoneb Neb (Estelle)) 1 ampul NEB Q6HR NEB ESTELLE Amiodarone HCl (Cordarone) 200 mg PO Q12HR [facility] Last Admin: 09/29/18 21:27 Dose: 200 mg Aspirin (Aspirin Chew) 81 mg PO DAILY [facility] Atorvastatin Calcium (Lipitor) 20 mg PO HS [facility] Last Admin: 09/29/18 21:28 Dose: 20 mg Bisacodyl (Dulcolax Supp) 10 mg RECTAL DAILY PRN PRN Reason: SEVERE CONSITIPATION Calcium Chloride (Calcium Chloride Inj) 0.5 gm IV.PUSH UNSCH PRN PRN Reason: SEE LABEL COMMENTS Chlorhexidine Gluconate (Hibiclens 4% Topical) 1 applicatio TOPICAL [employer] [facility] Stop: 10/01/18 10:12 Clopidogrel Bisulfate (Plavix) 75 mg PO DAILY [facility] Sodium Chloride 77.5 ml/Papaverine HCl 60 mg/Nitroglycerin 100 mcg/Diltiazem HCl 100 mg 0 ml IRRIGATION [employer] [facility] Stop: 10/01/18 10:12 Last Admin: 09/29/18 09:57 Dose: 1 bag Sodium Chloride 500 ml/ (Cefazolin Sodium 500 mg) 0 ml IRRIGATION [employer] [facility] Stop: 10/01/18 10:14 Last Admin: 09/29/18 09:58 Dose: 1 irrig.soln Dextrose (D50w Vial) 50 ml IV.PUSH UNSCH PRN PRN Reason: PER HYPOGLYCEMIA PROTOCOL Epinephrine (Racepinephrine 2.25% Neb) 0.5 ml NEB UNSCH X1 PRN PRN Reason: STRIDOR Fentanyl Citrate (Fentanyl Inj) 25 mcg IV.PUSH Q1H PRN PRN Reason: BREAKTHROUGH PAIN Heparin Sodium/Dextrose (Heparin/D5w 25,000 U/250 Ml) 25,000 unit in 250 mls @ 0 mls/hr IV.CONT TITRATE PRN; Protocol PRN Reason: Per Protocol Last Titration: 09/29/18 05:30 Dose: Infused Insulin Human Regular 100 unit (/ Sodium Chloride) 100 mls @ 3 mls/hr IV.CONT TITRATE PRN; Protocol PRN Reason: See Protocol Acetaminophen (Ofirmev Inj) 1,000 mg in 100 mls @ 400 mls/hr IV.SIG Q6H ESTELLE Stop: 09/30/18 09:14 Last Infusion: 09/29/18 23:15 Dose: 400 mls/hr Albumin Human (Buminate 5% Inj) 250 mls @ 250 mls/hr IV.SIG UNSCH PRN PRN Reason: SEE LABEL COMMENTS Last Infusion: 09/29/18 19:30 Dose: Infused Calcium Chloride 1 gm/ Sodium (Chloride) 110 mls @ 100 mls/hr IV.SIG PRN PRN PRN Reason: SEE LABEL COMMENTS Last Infusion: 09/29/18 20:10 Dose: Infused Clevidipine (Cleviprex Inj) 25 mg in 50 mls @ 2 mls/hr IV.CONT TITRATE PRN; Protocol PRN Reason: Per protocol Insulin Human Regular 100 unit (/ Sodium Chloride) 100 mls @ 3 mls/hr IV.CONT TITRATE PRN; Protocol PRN Reason: See Protocol Last Titration: 09/29/18 22:05 Dose: 22 units/hr, 22 mls/hr Lactated Ringer's (Lr 1000 Ml Inj) 500 mls @ 500 mls/hr IV.SIG .Q1H PRN PRN Reason: SEE LABEL COMMENTS Magnesium Sulfate 2 gm/ Sodium (Chloride) 100 mls @ 50 mls/hr IV.SIG PRN PRN PRN Reason: SEE LABEL COMMENTS Magnesium Sulfate 2 gm/ Sodium (Chloride) 100 mls @ 50 mls/hr IV.SIG PRN PRN PRN Reason: SEE LABEL COMMENTS Phenylephrine HCl 40 mg/ (Sodium Chloride) 500 mls @ 30 mls/hr IV.CONT TITRATE PRN; Protocol PRN Reason: See Protocol Potassium Chloride (Kcl 20 Meq Premix Inj) 20 meq in 100 mls @ 50 mls/hr IV.SIG PRN PRN PRN Reason: SEE LABEL COMMENTS Potassium Chloride (Kcl 20 Meq Premix Inj) 20 meq in 100 mls @ 50 mls/hr IV.SIG PRN PRN PRN Reason: SEE LABEL COMMENTS Potassium Chloride (Kcl 20 Meq Premix Inj) 20 meq in 100 mls @ 50 mls/hr IV.SIG PRN PRN PRN Reason: SEE LABEL COMMENTS Last Admin: 09/29/18 23:32 Dose: 50 mls/hr Dexmedetomidine HCl 200 mcg/ (Sodium Chloride) 50 mls @ 3.85 mls/hr IV.CONT TITRATE PRN; Protocol PRN Reason: Per Protocol Cefazolin Sodium/Dextrose (Ancef 2 Gm Premix Inj) 2 gm in 50 mls @ 100 mls/hr IV.SIG Q8H [facility] Stop: 10/01/18 05:29 Last Infusion: 09/29/18 22:00 Dose: Infused Insulin Aspart (Novolog Insulin Correctional Sugar Inj) 20 unit SQ TIDAC [facility]; Protocol Last Admin: 09/28/18 17:50 Dose: 20 unit Insulin Aspart (Novolog Insulin Correctional Sugar Inj) 0 unit SQ 08,12,17,21, 03 [facility]; Protocol Last Admin: 09/29/18 22:58 Dose: Not Given Insulin Glargine (Lantus Inj) 38 units SQ [facility] Last Admin: 09/29/18 21:31 Dose: Not Given Isosorbide Mononitrate (Imdur) 30 mg PO DAILY [facility] Last Admin: 09/28/18 09:30 Dose: 30 mg Ketorolac Tromethamine (Toradol Inj) 15 mg IV.PUSH Q6H PRN PRN Reason: SEE LABEL COMMENTS Stop: 10/01/18 13:34 Lactulose (Lactulose Liq) 30 ml PO DAILY PRN PRN Reason: SEVERE CONSITIPATION Meperidine HCl (Demerol Inj) 12.5 mg IV.PUSH Q4H PRN PRN Reason: SHIVERING Metoprolol Tartrate (Lopressor) 12.5 mg PO [employer] [facility] Stop: 10/01/18 10:15 Morphine Sulfate (Morphine Inj) 2 mg IV.PUSH Q4H PRN PRN Reason: PAIN 6-10 Morphine Sulfate (Morphine Inj) 1 mg IV.PUSH Q10M PRN PRN Reason: PAIN SCALE 1 TO 5 Ondansetron HCl (Zofran Inj) 4 mg IV.PUSH Q6H PRN PRN Reason: NAUSEA OR VOMITING Pantoprazole Sodium (Protonix) 40 mg PO DAILY@06 [facility] Phenylephrine HCl (Neosynephrine Inj) 0.1 mg IV.PUSH UNSCH PRN PRN Reason: SEE LABEL COMMENTS Potassium Chloride (K-Dur) 20 meq PO UNSCH PRN PRN Reason: SEE LABEL COMMENTS Potassium Chloride (K-Dur) 40 meq PO UNSCH PRN PRN Reason: SEE LABEL COMMENTS Ranolazine (Ranexa) 500 mg PO Q12H [facility] Last Admin: 09/29/18 21:49 Dose: Not Given Senna/Docusate Sodium (Jacqui-Colace) 1 tab PO BID [facility] Last Admin: 09/29/18 21:28 Dose: 1 tab Sennosides (Senokot) 17.2 mg PO Q12H PRN PRN Reason: Moderate Constipation Sertraline HCl (Zoloft) 50 mg PO DAILY [facility] Last Admin: 09/28/18 09:30 Dose: 50 mg Sodium Bicarbonate (Sodium Bicarbonate 8.4% Inj) 50 meq IV.PUSH UNSCH PRN PRN Reason: SEE LABEL COMMENTS Sodium Bicarbonate (Sodium Bicarbonate 8.4% Inj) 100 meq IV.PUSH UNSCH PRN PRN Reason: SEE LABEL COMMENTS Sodium Chloride (Ns Flush) 2 ml IV.FLUSH BID [facility] Last Admin: 09/29/18 22:58 Dose: Not Given Sodium Chloride (Ns Flush) 2 ml IV.FLUSH PRN PRN PRN Reason: FLUSH AFTER USING IV ACCESS Temazepam (Restoril) 7.5 mg PO HS [facility] Last Admin: 09/29/18 21:32 Dose: Not Given Terbutaline Sulfate (Brethine Inj) 1 mg SQ ONCE PRN PRN Reason: Extravasation Terbutaline Sulfate (Brethine Inj) 1 mg SQ UNSCH PRN PRN Reason: For Extravasation Terbutaline Sulfate (Brethine Inj) 1 mg SQ UNSCH PRN PRN Reason: For Extravasation Allergies Allergy/AdvReac Type Severity Reaction Status Date / Time metoprolol Allergy Severe HALLUCINATI Verified 09/23/18 22:25 ONS famotidine Allergy Unknown RASH Verified 09/23/18 22:25 lisinopril Allergy Unknown Itching Verified 09/23/18 22:25 insulin detemir AdvReac Unknown Diarrhea Verified 09/23/18 22:25 Home Medications Medication Instructions Recorded Confirmed Type aspirin [Aspir-81] 81 mg PO DAILY 08/03/18 09/24/18 History atorvastatin 20 mg PO DAILY 08/03/18 09/24/18 History insulin glargine [Lantus U-100 25 unit SUB-Q DAILY 08/03/18 09/24/18 History Insulin] insulin lispro [Humalog U-100 45 unit SUB-Q DAILY 08/03/18 09/24/18 History Insulin] isosorbide mononitrate 30 mg PO QAM 08/03/18 09/24/18 History methocarbamol 500 mg PO QID 08/03/18 09/24/18 History nitroglycerin 0.3 mg SUBLINGUAL Q5-15M PRN 08/03/18 09/24/18 History sertraline 50 mg PO DAILY 08/03/18 09/24/18 History temazepam 7.5 mg PO HS 08/03/18 09/24/18 History ticagrelor [Brilinta] 90 mg PO BID 08/03/18 09/24/18 History Physical Exam Vital signs: Vital Signs 09/29/18 01:00 09/29/18 02:00 09/29/18 03:00 Temperature Pulse Rate 76 78 73 Respiratory Rate Blood Pressure Pulse Oximetry 09/29/18 04:00 09/29/18 05:00 09/29/18 05:45 Temperature 97.9 F Pulse Rate 79 68 67 Respiratory Rate 16 Blood Pressure 154/79 H Pulse Oximetry 98 09/29/18 13:55 09/29/18 14:45 09/29/18 14:46 Temperature 98.4 F Pulse Rate 84 80 Respiratory Rate 10 L 10 L Blood Pressure 112/65 Pulse Oximetry 94 L 95 09/29/18 18:30 09/29/18 18:32 09/29/18 18:47 Temperature 97.6 F Pulse Rate 82 Respiratory Rate 15 20 Blood Pressure 117/67 Pulse Oximetry 99 100 09/29/18 19:00 09/29/18 19:59 09/29/18 23:09 Temperature 97.6 F Pulse Rate 80 Respiratory Rate 20 20 20 Blood Pressure 115/73 Pulse Oximetry 99 100 Intake & Output 11/07/0909/29/18 09/30/18 06:59 18:59 06:59 Intake Total 760 / 760 3360 / 3360 710 / 710 Output Total 2450 / 2450 1600 / 1600 1910 / 1910 Balance -1690 / -1690 1760 / 1760 -1200 / -1200 Weight 77 kg Intake: IV 80 / 80 110 / 110 710 / 710 Heparin/NS PF Inj 1,000 ML @ 0 10 / 10 mls/hr .ROUTE .STK-MED ONE Rx#: [id number] Heparin/D5W 25,000 U/250 mL 25, 80 / 80 000 unit In 250 ml @ Per Protocol IV.CONT TITRATE PRN Rx #:[id number] Ofirmev Inj 1,000 mg In 100 ml 200 / 200 @ 400 mls/hr IV.SIG Q6H ESTELLE Rx# :[id number] Buminate 5% Inj 250 ML @ 250 250 / 250 mls/hr IV.SIG UNSCH PRN Rx#: [id number] Calcium Chloride Inj 1 GM In NS 110 / 110 Inj 100 ML @ 100 mls/hr IV.SIG PRN PRN Rx#:[id number] Magnesium Sulfate 1 gm/D5W 100 100 / 100 ml Premix 200 ML @ 0 mls/hr IV. SIG .STK-MED ONE Rx#:[id number] Ancef 1 GM Premix Inj 1 gm In 50 / 50 50 ml @ 0 mls/hr IV.SIG .STK- MED ONE Rx#:[id number] Ancef 2 GM Premix Inj 2 gm In 50 / 50 50 / 50 50 ml @ 100 mls/hr IV.SIG Q8H [facility] Rx#:[id number] Oral 680 / 680 Anesthesia Amount 3000 / 3000 Cell Saver Amount 250 / 250 Output: Urine 2450 / 2450 Estimated Blood Loss 750 / 750 Urine Amount (Catheter) 850 / 850 1800 / 1800 Indwelling Temp Sensing 850 / 850 1800 / 1800 Catheter Chest Tube Drainage 110 / 110 Pleural/Mediastinal 110 / 110 Other: Date of Last Bowel Movement 09/28/18 # Bowel Movements 1 Narrative: GENERAL: middle-aged female, lying in bed, intubated, sedated, critically ill. HEENT: nc. at. pupils are 2mm, equal reactive and conjugate. mmm. NECK: no jvd. venous sheath in place, site c/d/i. CARDIOVASCULAR: normal rate, regular rhythm. sinus. CVP 13. RESPIRATORY: PRVC. fio2 80%. peep 5. equal chest rise. midline sternal wound with vac dressing in place. 2 chest tubes exit subxiphoid, 100cc sanguinous output. GASTROINTESTINAL: Abdomen soft, non-tender, nondistended. no guarding. MUSCULOSKELETAL: Extremities without clubbing, cyanosis, or edema. LLE wrapped in MARYANN bandage. NEUROLOGICAL: RASS -4. withdraws x 4. does not follow commands. intubated, sedated. - Urinary Catheter Management Indwelling Temp Sensing Catheter Cath placed during this visit: yes Reason for continuing: Hourly intake/output Insertion date: 09/29/18 Insertion time: 08:30 Results 09/29/18 19:25 09/28/18 04:47 Cardiac Enzymes 09/29/18 Range/Units 19:25 Lactate Dehydrogenase 367 H (84-246) U/L Coagulation 09/28/18 09/28/18 09/28/18 Range/Units 04:47 12:53 18:25 PT 11.0 (9.8-11.6) sec APTT 35.2 H D 40.8 H 42.7 H (23.4-31.7) sec 09/29/18 09/29/18 Range/Units 19:25 19:25 PT 11.6 (9.8-11.6) sec APTT 130.5 H* D (23.4-31.7) sec CBC 09/29/18 Range/Units 19:25 WBC 10.9 (4.0-11.0) th/mm3 RBC 3.57 L (4.00-5.30) mil/mm3 Hgb 10.2 L (11.6-15.3) gm/dL Hct 30.5 L (35.0-46.0) % Plt Count 205 (150-450) th/mm3 Comprehensive Metabolic Panel 09/28/18 Range/Units 04:47 Sodium 143 (136-145) meq/L Potassium 3.6 (3.5-5.1) meq/L Chloride 109 H (98-107) meq/L Carbon Dioxide 26.6 (21.0-32.0) meq/L BUN 8 (7-18) mg/dL Creatinine 1.04 H (0.50-1.00) mg/dL Calcium 8.6 (8.5-10.1) mg/dL Intake and Output 09/29/18 09/29/18 09/30/18 14:59 22:59 06:59 Intake Total 3150 / 3150 820 / 820 100 / 100 Output Total 1600 / 1600 1910 / 1910 Balance 1550 / 1550 -1090 / -1090 100 / 100 Intake: IV 100 / 100 620 / 620 100 / 100 Heparin/NS PF Inj 1,000 ML @ 0 10 / 10 mls/hr .ROUTE .STK-MED ONE Rx#: [id number] Ofirmev Inj 1,000 mg In 100 ml 100 / 100 100 / 100 @ 400 mls/hr IV.SIG Q6H [facility] Rx# :[id number] Buminate 5% Inj 250 ML @ 250 250 / 250 mls/hr IV.SIG UNSCH PRN Rx#: [id number] Calcium Chloride Inj 1 GM In NS 110 / 110 Inj 100 ML @ 100 mls/hr IV.SIG PRN PRN Rx#:[id number] Magnesium Sulfate 1 gm/D5W 100 100 / 100 ml Premix 200 ML @ 0 mls/hr IV. SIG .STK-MED ONE Rx#:[id number] Ancef 1 GM Premix Inj 1 gm In 50 / 50 50 ml @ 0 mls/hr IV.SIG .STK- MED ONE Rx#:[id number] Ancef 2 GM Premix Inj 2 gm In 50 / 50 50 / 50 50 ml @ 100 mls/hr IV.SIG Q8H [facility] Rx#:[id number] Anesthesia Amount 2800 / 2800 200 / 200 Cell Saver Amount 250 / 250 Output: Estimated Blood Loss 750 / 750 Urine Amount (Catheter) 850 / 850 1800 / 1800 Indwelling Temp Sensing 850 / 850 1800 / 1800 Catheter Chest Tube Drainage 110 / 110 Pleural/Mediastinal 110 / 110 - Imaging and Cardiology Imaging: Impressions Carotid Doppler Study 09/28/18 10:09 CONCLUSION: 1. Right Internal Carotid Artery: No significant stenosis or atherosclerotic plaque is visualized. 2. Left Internal Carotid Artery: No significant stenosis or atherosclerotic plaque is visualized. Chest X-Ray 09/29/18 13:35 CONCLUSION: Moderate pulmonary edema. Assessment and Plan - Assessment (1) Unstable angina Code(s): I20.0 - Unstable angina Status: Acute (2) CAD (coronary artery disease), [place] coronary artery Code(s): I25.10 - Atherosclerotic heart disease of [place] coronary artery without angina pectoris Status: Acute (3) Diabetes mellitus Code(s): E11.9 - Type 2 diabetes mellitus without complications Status: Acute (4) Acute ST elevation myocardial infarction (STEMI) Code(s): I21.3 - ST elevation (STEMI) myocardial infarction of unspecified site Status: Acute - Plan 1) CABG x4 2) Jacqui-procedure STEMI Found to have extensive thrombus in both [place] vessels as well as grafts RAMEY to LAD with competitive flow, most likely will occlude Thrombus in LAD aspirated, distal LAD unable to pass wire past the anastomosis site SVG to OM1/OM2 occluded with extensive thrombus DESx2 to [place] OM1 MAXWELL to [place] LCx POBA of [place] OM2 RCA stents patent PDA occluded where it was previously jailed Unable to find SVG to PDA [place] to be small vessel supplying very little territory ASA/Plavix Possible change to Brilinta once stable 3) Intubated Plan to keep intubated overnight 4) Hypercoaguable state Risk of HIT low, but will send labs Plan to place on heparin drip 4 hours after arterial sheath pulled Hematology consultation 5) Bedside HAKAN done with Dr. Enriquez EF 45%, inferolateral wall akinetic No significant valvulopathies 6) Discussed extensively with Dr. Campos and Dr. Enriquez 7) Discussed extensively with the patient's family after the procedure 8) Greater than 60 mins of critical care time spent outside of procedures
[2018-09-30] MEDS: Albumin Human 5% Inj 250 ML IV.SIG PRN (00:43)
[2018-09-30] MEDS: Heparin Drip 25,000 UNIT/250 ML BAG IV.CONT PRN (02:34)
[2018-09-30 02:51] LABS: Activated Partial Thrombo Time 25.2 sec (23.4-31.7); INR 1.1 Ratio; Prothrombin Time 11.2 sec (9.8-11.6)
[2018-09-30] MEDS: Insulin NovoLOG Aspart Correctional Sugar Inj SQ SCH ×6 (03:00→21:55)
[2018-09-30] MEDS ORDERED: Albumin Human 5% Inj 250 ML IV.SIG ONE ×2 (04:36→05:00)
[2018-09-30] MEDS: ceFAZolin 2 GM Premix Inj 2 GM/50 ML PIGGYBACK IV.SIG SCH ×3 (04:42→21:00)
[2018-09-30] MEDS: Dexmedetomidine Inj 200 MCG in Sodium Chlor 0.9% Inj 48 ML IV.CONT PRN ×3 (05:01→21:56)
--- NOTE | 2018-09-30 05:21 | MA ---
cc: Chito Melissa DO DATE: 09/29/2018 PROCEDURE: Left heart catheterization, coronary angiogram, bypass angiogram, complex case, moderate sedation at 128 minutes, Sheldon drug-eluting stent x2 (proximal 2 x 12, mid 2 x 30) to first obtuse marginal, balloon angioplasty of the second obtuse marginal, Raton drug-eluting stent (2 x 30) to mid left circumflex, aspiration thrombectomy of LAD. PREPROCEDURE DIAGNOSIS: Status post CABG x4 with acute ST elevation myocardial infarction. POSTPROCEDURE DIAGNOSIS: Status post CABG x4, acute ST elevation myocardial infarction with multiple areas of thrombosed vessels, status post stenting of OM1, stenting of left circumflex, balloon angioplasty of OM2, aspiration thrombectomy of left anterior descending artery. MEDICATIONS: Precedex drip, heparin 12,400 units, nitroglycerin 300 mcg, Plavix 600 mg. CONTRAST USED: 260 mL. FLUOROSCOPY: 38.0 minutes. MODERATE SEDATION: 128 minutes. FRAILTY SCORE: 3. ESTIMATED BLOOD LOSS: 40 mL. PROCEDURAL SUMMARY: Aditi Lira is a pleasant 58-year-old female, whom I see in the office and presented with unstable angina. She has known multivessel disease and was evaluated for consideration of coronary artery bypass grafting. She underwent the procedure today with a RAMEY to LAD, saphenous vein graft to OM1/OM2, and saphenous vein graft to PDA. During the procedure, there was concern for ST elevations and once out of the procedure, an EKG was done showing inferior lateral ST elevations. Because of this, I felt that she needed to go to the cardiac catheterization lab to evaluate her coronary and bypass anatomy. Emergent consent was taken due to the nature of the procedure. I did discuss this extensively with the family in the waiting room preoperatively and the necessity of doing this emergently. She was brought to the lab and prepped in the usual sterile fashion. Right femoral artery was accessed using modified Seldinger technique and placement of a 6-Slovenian sheath. This was easily aspirated and flushed. A JR4 was advanced over a J-wire to the ascending aorta and across the aortic valve for measurement of left ventricular pressure. This was pulled back across the aortic valve showing no significant gradient of aortic stenosis. JR4 was used for selective angiography of the [place] right coronary as well as the RAMEY to LAD. I was unable to engage in any of the saphenous vein grafts with this and so this was exchanged out for a multipurpose, which once again, I was unable to engage any of the saphenous vein grafts. So this was exchanged out for an AR mod. During that time, I was unable to pull back on the AR mod until it was removed and a large amount of thrombus was removed outside of the body from the AR mod. At this time, heparin was given to the patient due to concern for the thrombus. I then used an AL1, which engaged the saphenous vein graft to the first and second obtuse marginal, which was occluded. This was exchanged out for a JL4, which was used for selective angiography of the left coronary artery system. Please see notes below for intervention. FINDINGS: LEFT MAIN: Normal-sized vessel with adequate reflux. It bifurcates into an LAD and circumflex. LAD: Moderate-size vessel with multiple lesions throughout the proximal and midportion, which were felt to be 60-70%. There appears to be possibly competitive flow and some thrombus noted in the distal LAD. It gives off one diagonal, which has 2 extremely small vessels with 90% lesions each, but the vessels are around 1 mm a piece. LEFT CIRCUMFLEX: Moderate size vessel, which gives off 3 obtuse marginals. First one is occluded at the mid portion. The second one is occluded at the proximal portion. The third one is overall small with minimal flow. RCA: Moderate size vessel with 2 previous stents patent. It does supply multiple posterolateral branches. The area where previously the PDA was subtotally occluded, it is not totally occluded and there is minimal flow into the mid portion of the PDA, which is an overall small vessel. RAMEY to LAD is overall small and tortuous vessel, which appears to have slow flow and competitive flow distally due to the LAD. The saphenous vein graft to first and second obtuse marginal is 100% occluded with thrombus. Saphenous vein graft to PDA was never found. INTERVENTION: A decision was made at that time that due to the saphenous vein graft to the first and second obtuse marginals having significant thrombus, possibility of opening it without showering thrombus distally was unlikely. I felt that intervention on the first and second obtuse marginal would be a better option. An EBU 3.5 guide was engaged into the left main. Additional heparin was given as an anticoagulant. A BMW wire was advanced down the first obtuse marginal. A compliant balloon (2 x 12) was used to predilate the proximal to mid lesion. A compliant balloon (1.5 x 10) was used to predilate the full length of the vessel. A compliant balloon (2 x 30) was used to further dilate the vessel. An Raton drug-eluting stent (2 x 30) was then placed distally and deployed. A second Sheldon drug-eluting stent (2 x 12) was overlapped proximally with the previous stent and deployed. A noncompliant balloon (2 x 20) was used to post-dilate the stents. I turned my attention to the second obtuse marginal. This is overall a smaller vessel. I reviewed the films multiple times throughout the case from previous angiogram. BMW wire was pulled back and advanced down the second obtuse marginal. A compliant balloon (1.5 x 10) was used to predilate the vessel. I then placed a compliant balloon (1.5 x 15), which was used to further predilate the full length of the vessel. As there was extensive disease in the mid circumflex between the first and second obtuse marginal, I felt that this needed to be intervened on. An Sheldon drug-eluting stent (2 x 30) was placed over the lesion and deployed. This was postdilated with a noncompliant balloon (2 x 20). As there appeared to be competitive flow, but also possible thrombus in the LAD, I turned my attention towards the LAD. A new BMW wire was advanced into the distal LAD. An aspiration thrombectomy catheter was used throughout the LAD. I was unable to advance my wire past the RAMEY to LAD anastomosis site. At this time, the patient was hemodynamically stable and ST elevations had come down from originally around 10 mm to about 1 mm. There was concern for not finding the saphenous vein graft to RCA, but overall the distal PDA is a relatively small vessel, which was jailed by a previous stent and an extensive amount of contrast had been used. I felt that she was hemodynamically stable at this time and STs had come down and so I felt that it was better to finish the procedure at that time. Wire was removed and final angiogram shows 3 well opposed stents with no perforations or dissections. INTERVENTIONAL DATA: Lesion 1, mid first OM, lesion length 38, pre-CHRIS 0, post CHRIS 3, post-stenosis 0. Lesion 2, mid second OM, lesion length 20, pre-CHRIS 0, post-CHRIS 3, post-stenosis 30%. Lesion 3, mid left circumflex, lesion length 20, pre-CHRIS 2, post-CHRIS 3, post-stenosis 0. Lesion 4, distal LAD, lesion length 30, pre-CHRIS 1, post-CHRIS 3, post-stenosis 0. IMPRESSION: 1. Status post coronary artery bypass grafting. 2. Acute ST elevation myocardial infarction. 3. Extensive amount of thrombus noted in saphenous vein grafts as well as [place] vessels. 4. Status post drug-eluting stent x2 to first obtuse marginal, drug-eluting stent to mid circumflex, balloon angioplasty of OM2, aspiration thrombectomy of left anterior descending. RECOMMENDATIONS: 1. Ms. Lira underwent complex procedure after coronary artery bypass grafting. 2. She will be placed on aspirin and Plavix therapy. Depending on her hospital course, this may be switched to Brilinta. 3. Case was discussed extensively with both periprocedural and post-procedural as well as Dr. Wayne. She ended up having an extensive amount of thrombus in her vein grafts, but also her [place] vessels, which would be unusual. Previous obtuse marginals were not occluded on previous cardiac catheterization. For now after femoral sheath is pulled, we will plan on placing her on a heparin drip. We will plan on having hematology see her for possible hypercoagulable disorder. 4. We will plan on a transesophageal echocardiogram to evaluate her current ejection fraction as well as followup of these. Most likely, we will also do a formal transthoracic echocardiogram in the morning. 5. Case was discussed extensively with the family postoperatively about her critical state. 6. Further recommendations will be made based on the hospital course. 7. Greater than 60 minutes of critical care time excluding procedures and discussion with consultants, evaluating the patient, and discussing with family. Thank you for allowing me to see Aditi Lira. If there are any questions, please do not hesitate to call. DO BERHANE Sequeira/gaurang/maggie , 12:18 AM , 12:43 AM
[2018-09-30] MEDS: fentaNYL Citrate Inj 100 MCG/2 ML Ampul IV.PUSH PRN ×6 (05:27→21:34)
--- NOTE | 2018-09-30 05:51 | XR ---
EXAM DATE: 09/30/2018 5:33 AM EST AGE/SEX: 58 years / Female INDICATIONS: S/P CABG. CLINICAL DATA: This is the patient's subsequent encounter. Patient reports that signs and symptoms h ave been present for 4 - 6 days and indicates a pain score of Nonresponsive. MEDICAL/SURGICAL HISTORY: Diabetes. Coronary artery disease. CABG. Cardiac cath. COMPARISON: C, CHEST 1V SINGLE AP, 09/29/2018. . FINDINGS: A single AP view of the chest demonstrates an endotracheal tube with the tip 3 cm from the mis. Na sogastric tube courses off the inferior margin of the film. 2 thoracostomy tubes. Right-sided central line. No pneumothorax. Mild basilar atelectasis. No effusions. Heart is normal in size. Median smith otomy wires. CONCLUSION: Mild bibasilar atelectasis. Electronically signed by: Randy Wayne MD 09/30/2018 5:50 AM EST
[2018-09-30 06:01] LABS: Mean Corpuscular HGB Conc 35.9 % (32.0-36.0); Mean Corpuscular Hemoglobin 30.3 pg (27.0-34.0); Mean Corpuscular Volume 84.4 fL (80.0-100.0); Mean Platelet Volume 8.3 fL (7.0-11.0); Platelet Count 171 th/mm3 (150-450); Red Blood Count 2.97 mil/mm3 (4.00-5.30); Red Cell Distribution Width 14.7 % (11.6-17.2); White Blood Count 8.8 th/mm3 (4.0-11.0)
[2018-09-30 06:20] LABS: Calcium 8.1 mg/dL (8.5-10.1); Carbon Dioxide 20.8 meq/L (21.0-32.0); Magnesium 2.1 mg/dL (1.5-2.5)
--- NOTE | 2018-09-30 07:07 | P.CON ---
History of Present Illness Service: Hematology. Consult date: 09/30/18 Requesting Physician: Ernesto Campos Reason for Consult: CABG graft thrombosis. Primary Care Provider: UNKNOWN Chief Complaint: Patient intubated, awake unable to communicate. History of Present Illness: Ms. Lira is a 58-year-old female with a history of diabetes, coronary artery disease and renal insufficiency (history obtained from EMR). She initially presented to [facility] on 09/23/2018 complaining of chest pain. Cardiology and cardiothoracic surgery were involved early in her management, she was found to have multivessel coronary artery disease, in November 2017 she had suffered an inferior wall ST elevation myocardial infarction. On 09/29/2018 patient underwent urgent off-pump coronary artery bypass grafting x4 with left internal mamillary artery to the left anterior descending, reverse saphenous vein graft to the obtuse marginal 1 and sequentially to the obtuse marginal 2 of the left circumflex artery. Based on EMR the patient suffered occlusions of the graft within hours of undergoing surgery, she was found to have ST elevations EKG. On 09/29/2018 (same day as her CABG) she underwent left heart catheterization, intraprocedure findings revealed significant thrombus formation within the saphenous venous graft to the first and second obtuse marginals, additionally thrombosis had also developed along the left anterior descending artery. The arterial thromboses within the graft occurred while the patient had been on treatment with antiplatelet agents and per the electronic health record heparin as well. The hematology/oncology service has been asked to see the patient to rule out a prothrombotic condition. Review of Systems other (Unable to obtain because the patient is orally intubated. She is awake and) PMFSH - History History Provided By: Medical Record - Medical History Medical History: Medical History (Last Updated 09/30/18 @ 07:01 by Phil Curry MD) Chronic renal insufficiency, stage II (mild) Coronary artery disease Diabetes mellitus MDRO (multiple drug resistant organisms) resistance Onset Date: ~09/25/18 Myocardial infarction - Family History Family History: Family History (Last Reviewed 09/30/18 @ 07:01 by Phil Curry MD) Other Family history non-contributory - Social History I have reviewed the patient's Social History: No - Tobacco History Second Hand Smoke Exposure: No Smoking Status: Never smoker - Alcohol History How Often Do You Have a Drink Containing Alcohol: Never - Substance Use History Substance History: No History of Abuse - Travel History Recent Travel in the [place] Within the Last 8 Weeks: No Recent Travel Out of the Country Within the Last 8 Weeks: No - Immunization History Tetanus Immunization: Unsure Medications and Allergies Active Medications: Active Medications Acetaminophen (Tylenol) 650 mg PO Q4H PRN PRN Reason: Temp > 100.4 Last Admin: 09/27/18 22:28 Dose: 650 mg Hydrocodone Bitart/Acetaminophen ([place] 5/325) 1 tab PO Q3H PRN PRN Reason: PAIN SCALE 1 TO 5 Al Hydroxide/Mg Hydroxide (Milk Of [place] Liq) 30 ml PO Q12H PRN PRN Reason: Mild Constipation Albuterol (Duoneb Neb (Prn)) 1 ampul NEB Q2HR NEB PRN PRN Reason: WHEEZING Albuterol (Duoneb Neb (Estelle)) 1 ampul NEB Q6HR NEB [facility] Last Admin: 09/30/18 03:56 Dose: 1 ampul Amiodarone HCl (Cordarone) 200 mg PO Q12HR [facility] Last Admin: 09/29/18 21:27 Dose: 200 mg Aspirin (Aspirin Chew) 81 mg PO DAILY [facility] Atorvastatin Calcium (Lipitor) 20 mg PO HS [facility] Last Admin: 09/29/18 21:28 Dose: 20 mg Bisacodyl (Dulcolax Supp) 10 mg RECTAL DAILY PRN PRN Reason: SEVERE CONSITIPATION Calcium Chloride (Calcium Chloride Inj) 0.5 gm IV.PUSH UNSCH PRN PRN Reason: SEE LABEL COMMENTS Chlorhexidine Gluconate (Hibiclens 4% Topical) 1 applicatio TOPICAL FINANCE CLERK [facility] Stop: 10/01/18 10:12 Clopidogrel Bisulfate (Plavix) 75 mg PO DAILY [facility] Sodium Chloride 77.5 ml/Papaverine HCl 60 mg/Nitroglycerin 100 mcg/Diltiazem HCl 100 mg 0 ml IRRIGATION FINANCE CLERK [facility] Stop: 10/01/18 10:12 Last Admin: 09/29/18 09:57 Dose: 1 bag Sodium Chloride 500 ml/ (Cefazolin Sodium 500 mg) 0 ml IRRIGATION FINANCE CLERK [facility] Stop: 10/01/18 10:14 Last Admin: 09/29/18 09:58 Dose: 1 irrig.soln Dextrose (D50w Vial) 50 ml IV.PUSH UNSCH PRN PRN Reason: PER HYPOGLYCEMIA PROTOCOL Epinephrine (Racepinephrine 2.25% Neb) 0.5 ml NEB UNSCH X1 PRN PRN Reason: STRIDOR Fentanyl Citrate (Fentanyl Inj) 25 mcg IV.PUSH Q1H PRN PRN Reason: BREAKTHROUGH PAIN Last Admin: 09/30/18 05:27 Dose: 25 mcg Insulin Human Regular 100 unit (/ Sodium Chloride) 100 mls @ 3 mls/hr IV.CONT TITRATE PRN; Protocol PRN Reason: See Protocol Acetaminophen (Ofirmev Inj) 1,000 mg in 100 mls @ 400 mls/hr IV.SIG Q6H [facility] Stop: 09/30/18 09:14 Last Infusion: 09/30/18 03:30 Dose: Infused Calcium Chloride 1 gm/ Sodium (Chloride) 110 mls @ 100 mls/hr IV.SIG PRN PRN PRN Reason: SEE LABEL COMMENTS Last Infusion: 09/29/18 20:10 Dose: Infused Clevidipine (Cleviprex Inj) 25 mg in 50 mls @ 2 mls/hr IV.CONT TITRATE PRN; Protocol PRN Reason: Per protocol Insulin Human Regular 100 unit (/ Sodium Chloride) 100 mls @ 3 mls/hr IV.CONT TITRATE PRN; Protocol PRN Reason: See Protocol Last Titration: 09/30/18 02:05 Dose: 6 units/hr, 6 mls/hr Lactated Ringer's (Lr 1000 Ml Inj) 500 mls @ 500 mls/hr IV.SIG .Q1H PRN PRN Reason: SEE LABEL COMMENTS Magnesium Sulfate 2 gm/ Sodium (Chloride) 100 mls @ 50 mls/hr IV.SIG PRN PRN PRN Reason: SEE LABEL COMMENTS Magnesium Sulfate 2 gm/ Sodium (Chloride) 100 mls @ 50 mls/hr IV.SIG PRN PRN PRN Reason: SEE LABEL COMMENTS Phenylephrine HCl 40 mg/ (Sodium Chloride) 500 mls @ 30 mls/hr IV.CONT TITRATE PRN; Protocol PRN Reason: See Protocol Potassium Chloride (Kcl 20 Meq Premix Inj) 20 meq in 100 mls @ 50 mls/hr IV.SIG PRN PRN PRN Reason: SEE LABEL COMMENTS Potassium Chloride (Kcl 20 Meq Premix Inj) 20 meq in 100 mls @ 50 mls/hr IV.SIG PRN PRN PRN Reason: SEE LABEL COMMENTS Potassium Chloride (Kcl 20 Meq Premix Inj) 20 meq in 100 mls @ 50 mls/hr IV.SIG PRN PRN PRN Reason: SEE LABEL COMMENTS Last Infusion: 09/30/18 01:35 Dose: Infused Dexmedetomidine HCl 200 mcg/ (Sodium Chloride) 50 mls @ 3.85 mls/hr IV.CONT TITRATE PRN; Protocol PRN Reason: Per Protocol Last Titration: 09/30/18 05:02 Dose: 0.29 mcg/kg/hr, 5.77 mls/hr Cefazolin Sodium/Dextrose (Ancef 2 Gm Premix Inj) 2 gm in 50 mls @ 100 mls/hr IV.SIG Q8H [facility] Stop: 10/01/18 05:29 Last Infusion: 09/30/18 05:15 Dose: Infused Heparin Sodium/Dextrose (Heparin/D5w 25,000 U/250 Ml) 25,000 unit in 250 mls @ 0 mls/hr IV.CONT TITRATE PRN; Protocol PRN Reason: Per Protocol Last Admin: 09/30/18 02:34 Dose: 900 units/hr, 9 mls/hr Insulin Aspart (Novolog Insulin Correctional Sugar Inj) 20 unit SQ TIDAC [facility]; Protocol Last Admin: 09/28/18 17:50 Dose: 20 unit Insulin Aspart (Novolog Insulin Correctional Sugar Inj) 0 unit SQ 08,12,17,21, 03 [facility]; Protocol Last Admin: 09/30/18 03:00 Dose: Not Given Insulin Glargine (Lantus Inj) 38 units SQ HS [facility] Last Admin: 09/29/18 21:31 Dose: Not Given Isosorbide Mononitrate (Imdur) 30 mg PO DAILY [facility] Last Admin: 09/28/18 09:30 Dose: 30 mg Lactulose (Lactulose Liq) 30 ml PO DAILY PRN PRN Reason: SEVERE CONSITIPATION Meperidine HCl (Demerol Inj) 12.5 mg IV.PUSH Q4H PRN PRN Reason: SHIVERING Metoprolol Tartrate (Lopressor) 12.5 mg PO FINANCE CLERK [facility] Stop: 10/01/18 10:15 Morphine Sulfate (Morphine Inj) 2 mg IV.PUSH Q4H PRN PRN Reason: PAIN 6-10 Morphine Sulfate (Morphine Inj) 1 mg IV.PUSH Q10M PRN PRN Reason: PAIN SCALE 1 TO 5 Ondansetron HCl (Zofran Inj) 4 mg IV.PUSH Q6H PRN PRN Reason: NAUSEA OR VOMITING Pantoprazole Sodium (Protonix) 40 mg PO DAILY@06 [facility] Phenylephrine HCl (Neosynephrine Inj) 0.1 mg IV.PUSH UNSCH PRN PRN Reason: SEE LABEL COMMENTS Potassium Chloride (K-Dur) 20 meq PO UNSCH PRN PRN Reason: SEE LABEL COMMENTS Potassium Chloride (K-Dur) 40 meq PO UNSCH PRN PRN Reason: SEE LABEL COMMENTS Ranolazine (Ranexa) 500 mg PO Q12H [facility] Last Admin: 09/29/18 21:49 Dose: Not Given Senna/Docusate Sodium (Jacqui-Colace) 1 tab PO BID [facility] Last Admin: 09/29/18 21:28 Dose: 1 tab Sennosides (Senokot) 17.2 mg PO Q12H PRN PRN Reason: Moderate Constipation Sertraline HCl (Zoloft) 50 mg PO DAILY [facility] Last Admin: 09/28/18 09:30 Dose: 50 mg Sodium Bicarbonate (Sodium Bicarbonate 8.4% Inj) 50 meq IV.PUSH UNSCH PRN PRN Reason: SEE LABEL COMMENTS Sodium Bicarbonate (Sodium Bicarbonate 8.4% Inj) 100 meq IV.PUSH UNSCH PRN PRN Reason: SEE LABEL COMMENTS Sodium Chloride (Ns Flush) 2 ml IV.FLUSH BID [facility] Last Admin: 09/29/18 22:58 Dose: Not Given Sodium Chloride (Ns Flush) 2 ml IV.FLUSH PRN PRN PRN Reason: FLUSH AFTER USING IV ACCESS Temazepam (Restoril) 7.5 mg PO [facility] Last Admin: 09/29/18 21:32 Dose: Not Given Terbutaline Sulfate (Brethine Inj) 1 mg SQ ONCE PRN PRN Reason: Extravasation Terbutaline Sulfate (Brethine Inj) 1 mg SQ UNSCH PRN PRN Reason: For Extravasation Terbutaline Sulfate (Brethine Inj) 1 mg SQ UNSCH PRN PRN Reason: For Extravasation Allergies Allergy/AdvReac Type Severity Reaction Status Date / Time metoprolol Allergy Severe HALLUCINATI Verified 09/23/18 22:25 ONS famotidine Allergy Unknown RASH Verified 09/23/18 22:25 lisinopril Allergy Unknown Itching Verified 09/23/18 22:25 insulin detemir AdvReac Unknown Diarrhea Verified 09/23/18 22:25 Home Medications Medication Instructions Recorded Confirmed Type aspirin [Aspir-81] 81 mg PO DAILY 08/03/18 09/24/18 History atorvastatin 20 mg PO DAILY 08/03/18 09/24/18 History insulin glargine [Lantus U-100 25 unit SUB-Q DAILY 08/03/18 09/24/18 History Insulin] insulin lispro [Humalog U-100 45 unit SUB-Q DAILY 08/03/18 09/24/18 History Insulin] isosorbide mononitrate 30 mg PO QAM 08/03/18 09/24/18 History methocarbamol 500 mg PO QID 08/03/18 09/24/18 History nitroglycerin 0.3 mg SUBLINGUAL Q5-15M PRN 08/03/18 09/24/18 History sertraline 50 mg PO DAILY 08/03/18 09/24/18 History temazepam 7.5 mg PO HS 08/03/18 09/24/18 History ticagrelor [Brilinta] 90 mg PO BID 08/03/18 09/24/18 History Physical Exam Vital signs: Vital Signs 09/29/18 13:55 09/29/18 14:45 09/29/18 14:46 Temperature 98.4 F Pulse Rate 84 80 Respiratory Rate 10 L 10 L Blood Pressure 112/65 Pulse Oximetry 94 L 95 09/29/18 18:30 09/29/18 18:32 09/29/18 18:47 Temperature 97.6 F Pulse Rate 82 Respiratory Rate 15 20 Blood Pressure 117/67 Pulse Oximetry 99 100 09/29/18 19:00 09/29/18 19:59 09/29/18 23:00 Temperature 97.6 F 99.5 F Pulse Rate 80 85 Respiratory Rate 20 20 20 Blood Pressure 115/73 99/59 L Pulse Oximetry 99 100 100 09/29/18 23:09 09/30/18 00:54 09/30/18 03:00 Temperature 100 F H Pulse Rate 83 Respiratory Rate 20 17 19 Blood Pressure 127/71 Pulse Oximetry 99 100 09/30/18 03:59 09/30/18 04:00 Temperature Pulse Rate 85 83 Respiratory Rate 15 Blood Pressure Pulse Oximetry 99 Intake & Output 09/29/18 09/29/18 09/30/18 06:59 18:59 06:59 Intake Total 760 / 760 3360 / 3360 1870 / 1870 Output Total 2450 / 2450 1600 / 1600 3290 / 3290 Balance -1690 / -1690 1760 / 1760 -1420 / -1420 Weight 77 kg 77.5 kg Intake: IV 80 / 80 110 / 110 1660 / 1660 Heparin/NS PF Inj 1,000 ML @ 0 10 / 10 mls/hr .ROUTE .STK-MED ONE Rx#: [id number] Heparin/D5W 25,000 U/250 mL 25, 80 / 80 000 unit In 250 ml @ Per Protocol IV.CONT TITRATE PRN Rx #:[id number] Ofirmev Inj 1,000 mg In 100 ml 400 / 400 @ 400 mls/hr IV.SIG Q6H [facility] Rx# :[id number] Buminate 5% Inj 250 ML @ 0 mls/ 750 / 750 hr IV.SIG .STK-MED ONE Rx#: [id number] Calcium Chloride Inj 1 GM In NS 110 / 110 Inj 100 ML @ 100 mls/hr IV.SIG PRN PRN Rx#:[id number] Magnesium Sulfate 1 gm/D5W 100 200 / 200 ml Premix 200 ML @ 0 mls/hr IV. SIG .STK-MED ONE Rx#:[id number] KCl 20 mEq Premix Inj 20 meq In 100 / 100 100 ml @ 50 mls/hr IV.SIG PRN PRN Rx#:[id number] Ancef 1 GM Premix Inj 1 gm In 50 / 50 50 ml @ 0 mls/hr IV.SIG .STK- MED ONE Rx#:[id number] Ancef 2 GM Premix Inj 2 gm In 50 / 50 100 / 100 50 ml @ 100 mls/hr IV.SIG Q8H [facility] Rx#:[id number] Oral 680 / 680 0 / 0 Tube Irrigant 110 / 110 Anesthesia Amount 3000 / 3000 Other 100 / 100 Cell Saver Amount 250 / 250 Output: Urine 2450 / 2450 Estimated Blood Loss 750 / 750 Urine Amount (Catheter) 850 / 850 2575 / 2575 Indwelling Temp Sensing 850 / 850 2575 / 2575 Catheter Gastric Drainage 425 / 425 Orogastric Tube 425 / 425 Chest Tube Drainage 290 / 290 Pleural/Mediastinal 290 / 290 Other: Date of Last Bowel Movement 11/07/18 # Bowel Movements 1 0 Narrative: General: Patient is a middle-aged lady, she is laying in the critical care unit bed, she is intubated, she is mildly sedated. She is responsive. HEENT: Head atraumatic normal cephalic, conjunctivae are mildly pale, sclerae are anicteric, EOMI, PERRLA. Respiratory: Good air movement bilaterally, no rhonchi or rails. Cardiac vascular: Regular rate and rhythm, S1-S2 no obvious murmurs rubs gallops. Chest examination: Sternotomy surgical incision and surgical dressing noted. Chest drains are noted in the epigastric area. Abdominal exam: Recurrent belly, soft, positive bowel sounds, no obvious organ enlargement. Lower extremities: Left lower extremity: Has been bandaged, no obvious tenderness noted. Right lower extremity in compression stockings. Drains: Chest drains are draining serosanguineous liquid. 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 She is tends to respond in track and nods yes or no to questions. Skin examination: Nonfocal. - Urinary Catheter Management Indwelling Temp Sensing Catheter Cath placed during this visit: yes Reason for continuing: Hourly intake/output Insertion date: 09/29/18 Insertion time: 08:30 Assessment and Plan - Plan Ms. Lira is a 58-year-old female with a previous history of coronary artery disease (myocardial infarction, ST YESI; in November 2017), diabetes and chronic renal insufficiency. Presented to [facility] on 09/23/2018 with chest pain. She was found to have diffuse coronary artery disease and was recommended CABG. On 09/29/2018 she underwent four-vessel CABG as outlined above. She was treated appropriately with antiplatelet therapy prior to surgery and was appropriately anticoagulated during surgery. Within hours of undergoing CABG she developed ST elevations on EKG. Emergency coronary artery catheterization was performed, she was found to have thrombus formation within the grafts that had been created earlier that day. Thrombectomy was performed along with stenting and angioplasty. The patient is now on a heparin infusion, aspirin and Plavix. A heparin-platelet factor-4 antibody has been ordered, the hematology service is been asked to see her to further evaluate for possible underlying prothrombotic condition. Recommendations: 1. Hyper acute thrombosis of CABG grafts (within 24 hours of creation of the grafts): Continue heparinization and antiplatelet therapy with combination of aspirin and clopidogrel. HIT antibodies have been appropriately ordered. I have also ordered a prothrombotic workup consisting of antiphospholipid antibodies, circulating lupus anticoagulant, protein C and protein S antigen and activity levels, factor V Leiden mutation as well as prothrombin gene mutation. A homocysteine level has also been ordered. Hematology will follow along with you. EKG reviewed, ST elevations have now resolved indicating patency of the coronary artery grafts and stents.
--- NOTE | 2018-09-30 07:54 | P.PNCV ---
- Note Subjective/Hospital Course: sts data discussed with pt RISK SCORES About the STS Risk Calculator Procedure: CAB Only Risk of Mortality: 0.745% Morbidity or Mortality: 8.994% Long Length of Stay: 3.108% Short Length of Stay: 56.144% Permanent Stroke: 0.567% Prolonged Ventilation: 6.252% DSW Infection: 0.387% Renal Failure: 1.922% Reoperation: 3.349% 58-year-old female with a significant history of coronary artery disease the presented to the ED for evaluation of chest pain. Patient has had chest pain for about a week. Per patient is progressively getting worse. She denies any urinary or bowel movement issues. She states that the pain gets worse with stress and movement. She took 4 nitro with minimal improvement of the symptoms which was what prompted her evaluation. Patient was admitted recently in July for evaluation of similar. She had another heart cath that showed . Significant multivessel disease, although overall small vessels. She did not had stenting at that time and they thought that she could have increase of her medications and may be this will help with her symptoms but she continues to have symptoms. PMH: CAD/ NH/ Stents/ HTN, HLP, DM insulin dependent EF 58% 09/26 pt on heparin gtt, 3 mcq of NTG will resume imdur and dc NTG, pt pain free eval PRU in am for timing of surgery off Brilinta since Thursday 09/27 off NTG gtt / on imdur/ heparin gtt, painfree PRU>250 stable for surgery on 09/28 doing well, no chest pain during the night on heparin gtt stable for surgery in am 09/29 SURGICAL PROCEDURE 1. Urgent Off-pump Coronary Artery Bypass Grafting x 4 with Left Internal Mammary Artery (RAMEY) to Left Anterior Descending (LAD), reverse saphenous vein graft to obtuse Marginal1 and sequentially to the Obtuse Marginal 2 branches of the left Circumflex artery, reverse saphenous vein graft to the posterior Descending branch of the right Coronary artery 2. Left leg Endoscopic Vein Independence 3. Intraoperative Vein Mapping. 09/30 Clinically and hemodynamic is stable Events noted with hyper acute thrombosis of all the grafts. PCI to the circumflex distribution Greatly appreciate Dr. Melissa and Dr. Enriquez's assistance in her care Wean to extubate today Presently on aspirin Plavix and heparin drip. Will defer to Dr. Melissa regarding long-term antiplatelet therapy Greatly appreciate Dr. Curry's input regarding further workup of her thrombotic state Objective: Vital Signs - 24 hr 09/29/18 13:55 09/29/18 14:45 09/29/18 14:46 Temperature 98.4 F Pulse Rate 84 80 Respiratory Rate 10 L 10 L Blood Pressure 112/65 Pulse Oximetry 94 L 95 09/29/18 18:30 09/29/18 18:32 09/29/18 18:47 Temperature 97.6 F Pulse Rate 82 Respiratory Rate 15 20 Blood Pressure 117/67 Pulse Oximetry 99 100 09/29/18 19:00 09/29/18 19:59 09/29/18 23:00 Temperature 97.6 F 99.5 F Pulse Rate 80 85 Respiratory Rate 20 20 20 Blood Pressure 115/73 99/59 L Pulse Oximetry 99 100 100 09/29/18 23:09 09/30/18 00:54 09/30/18 03:00 Temperature 100 F H Pulse Rate 83 Respiratory Rate 20 17 19 Blood Pressure 127/71 Pulse Oximetry 99 100 09/30/18 03:59 09/30/18 04:00 Temperature Pulse Rate 85 83 Respiratory Rate 15 Blood Pressure Pulse Oximetry 99 Labs: Laboratory Results - last 12 hr 09/28/18 09/29/18 09/29/18 04:47 19:25 19:25 WBC 10.9 RBC 3.57 L Hgb 10.2 L Hct 30.5 L MCV 85.4 MCH 28.6 MCHC 33.5 RDW 14.7 Plt Count 205 MPV 8.3 PT INR APTT 130.5 H* D Fibrinogen 316 Sodium Potassium Chloride Carbon Dioxide Anion Gap BUN Creatinine Estimated GFR POC Glucose Random Glucose Calcium Magnesium Lactate Dehydrogenase Blood Type B Positive Antibody Screen Negative MTS Gel Crossmatch See Detail 09/29/18 09/29/18 09/29/18 19:25 19:25 19:42 WBC RBC Hgb Hct MCV MCH MCHC RDW Plt Count MPV PT 11.6 INR 1.1 APTT Fibrinogen Sodium Potassium Chloride Carbon Dioxide Anion Gap BUN Creatinine Estimated GFR POC Glucose 134 H Random Glucose Calcium Magnesium Lactate Dehydrogenase 367 H Blood Type Antibody Screen MTS Gel Crossmatch 09/29/18 09/30/18 09/30/18 22:05 00:14 02:15 WBC RBC Hgb Hct MCV MCH MCHC RDW Plt Count MPV PT 11.2 INR 1.1 APTT 25.2 D Fibrinogen Sodium Potassium Chloride Carbon Dioxide Anion Gap BUN Creatinine Estimated GFR POC Glucose 272 H 157 H Random Glucose Calcium Magnesium Lactate Dehydrogenase Blood Type Antibody Screen MTS Gel Crossmatch 09/30/18 09/30/18 09/30/18 03:10 05:30 05:30 WBC 8.8 RBC 2.97 L Hgb 9.0 L Hct 25.0 L MCV 84.4 MCH 30.3 MCHC 35.9 RDW 14.7 Plt Count 171 MPV 8.3 PT INR APTT Fibrinogen Sodium 142 Potassium 4.0 Chloride 111 H Carbon Dioxide 20.8 L Anion Gap 10 BUN 10 Creatinine 1.10 H Estimated GFR 62 L POC Glucose 111 H Random Glucose 124 H Calcium 8.1 L Magnesium 2.1 Lactate Dehydrogenase Blood Type Antibody Screen MTS Gel Crossmatch Result Diagrams: 09/30/18 05:30 09/30/18 05:30 - Plan (1) CAD (coronary artery disease), [place] coronary artery Plan: ASA, statin Heparin gtt long acting nitrates stable for surgery on (2) Diabetes mellitus Plan: diabetic diet insulin sliding scale HGB A1C 8.6 (3) Unstable angina Plan: pain free at this time (4) Renal insufficiency Plan: indices improving
[2018-09-30] MEDS: Amiodarone 200 MG Tablet PO SCH ×2 (09:01→21:55)
--- NOTE | 2018-09-30 10:06 | P.PNCC ---
Subjective Subjective Remarks/Hospital Course: This is a 58yF with history of CAD who underwent off-pump CABG x 4 (RAMEY-->LAD, SVG-->OM1, SVG-->OM2, SVG-->PDA). intra-operatively it was noted that she had significant ST elevations. immediately post-operatively, it was noted that she had tombstoning on her EKG. She was taken emergently to the laboratory assistant by Dr. Melissa where she had completely occluded grafts. He stented OM1, LAD. balloon angiopasty to OM2. She arrives back to the CVICU where I met her. She has had 4L crystalloid resuscitation. chest tubes have about 100cc sanguinous output. Of note, she was on a tranexamic acid infusion during the CABG which was started by anesthesia. the patient is intubated and no additional information is available from the patient. ROS unobtainable. I discussed the case with Dr. Melissa and Dr. Campos at bedside: plan to initiate heparin infusion 4 hours post-arterial sheath pull. I also discussed re-evaluation of LV function. Dr. Melissa and I performed HAKAN at bedside which demonstrated lateral and inferolateral hypokinesis, EF 45%, mild TR. 09/30 Patient is awake and alert. On Neosyn 20 mics, Precedex 0.3 and Heparin drip. Afebrile. Objective Vital Signs / I&O: Vital Signs 09/29/18 13:55 09/29/18 14:45 09/29/18 14:46 Temperature 98.4 F Pulse Rate 84 80 Respiratory Rate 10 L 10 L Blood Pressure 112/65 Pulse Oximetry 94 L 95 09/29/18 18:30 09/29/18 18:32 09/29/18 18:47 Temperature 97.6 F Pulse Rate 82 Respiratory Rate 15 20 Blood Pressure 117/67 Pulse Oximetry 99 100 09/29/18 19:00 09/29/18 19:59 09/29/18 23:00 Temperature 97.6 F 99.5 F Pulse Rate 80 85 Respiratory Rate 20 20 20 Blood Pressure 115/73 99/59 L Pulse Oximetry 99 100 100 09/29/18 23:09 09/30/18 00:54 09/30/18 03:00 Temperature 100 F H Pulse Rate 83 Respiratory Rate 20 17 19 Blood Pressure 127/71 Pulse Oximetry 99 100 09/30/18 03:59 09/30/18 04:00 09/30/18 07:00 Temperature 98.7 F Pulse Rate 85 83 85 Respiratory Rate 15 17 Blood Pressure 136/98 H Pulse Oximetry 99 96 09/30/18 07:58 09/30/18 09:30 09/30/18 09:50 Temperature Pulse Rate 74 Respiratory Rate 14 17 16 Blood Pressure Pulse Oximetry 99 95 Intake & Output 09/29/18 09/30/18 09/30/18 18:59 06:59 18:59 Intake Total 3360 / 3360 1870 / 1870 Output Total 1600 / 1600 3290 / 3290 Balance 1760 / 1760 -1420 / -1420 Weight 77.5 kg Intake: IV 110 / 110 1660 / 1660 Heparin/NS PF Inj 1,000 ML @ 0 10 / 10 mls/hr .ROUTE .STK-MED ONE Rx#: [id number] Ofirmev Inj 1,000 mg In 100 ml 400 / 400 @ 400 mls/hr IV.SIG Q6H [facility] Rx# :[id number] Buminate 5% Inj 250 ML @ 0 mls/ 750 / 750 hr IV.SIG .STK-MED ONE Rx#: [id number] Calcium Chloride Inj 1 GM In NS 110 / 110 Inj 100 ML @ 100 mls/hr IV.SIG PRN PRN Rx#:[id number] Magnesium Sulfate 1 gm/D5W 100 200 / 200 ml Premix 200 ML @ 0 mls/hr IV. SIG .STK-MED ONE Rx#:[id number] KCl 20 mEq Premix Inj 20 meq In 100 / 100 100 ml @ 50 mls/hr IV.SIG PRN PRN Rx#:[id number] Ancef 1 GM Premix Inj 1 gm In 50 / 50 50 ml @ 0 mls/hr IV.SIG .STK- MED ONE Rx#:[id number] Ancef 2 GM Premix Inj 2 gm In 50 / 50 100 / 100 50 ml @ 100 mls/hr IV.SIG Q8H [facility] Rx#:[id number] Oral 0 / 0 Tube Irrigant 110 / 110 Anesthesia Amount 3000 / 3000 Other 100 / 100 Cell Saver Amount 250 / 250 Output: Estimated Blood Loss 750 / 750 Urine Amount (Catheter) 850 / 850 2575 / 2575 Indwelling Temp Sensing 850 / 850 2575 / 2575 Catheter Gastric Drainage 425 / 425 Orogastric Tube 425 / 425 Chest Tube Drainage 290 / 290 Pleural/Mediastinal 290 / 290 Other: # Bowel Movements 0 Result Diagrams: 09/30/18 05:30 09/30/18 05:30 Other Results: Laboratory Results - last 12 hr 09/28/18 09/29/18 09/30/18 04:47 22:05 00:14 WBC RBC Hgb Hct MCV MCH MCHC RDW Plt Count MPV PT INR APTT Sodium Potassium Chloride Carbon Dioxide Anion Gap BUN Creatinine Estimated GFR POC Glucose 272 H 157 H Random Glucose Calcium Magnesium Blood Type B Positive Antibody Screen Negative MTS Gel Crossmatch See Detail 09/30/18 09/30/18 09/30/18 02:15 03:10 05:30 WBC 8.8 RBC 2.97 L Hgb 9.0 L Hct 25.0 L MCV 84.4 MCH 30.3 MCHC 35.9 RDW 14.7 Plt Count 171 MPV 8.3 PT 11.2 INR 1.1 APTT 25.2 D Sodium Potassium Chloride Carbon Dioxide Anion Gap BUN Creatinine Estimated GFR POC Glucose 111 H Random Glucose Calcium Magnesium Blood Type Antibody Screen MTS Gel Crossmatch 09/30/18 09/30/18 09/30/18 05:30 07:50 09:10 WBC RBC Hgb Hct MCV MCH MCHC RDW Plt Count MPV PT INR APTT 63.0 H D Sodium 142 Potassium 4.0 Chloride 111 H Carbon Dioxide 20.8 L Anion Gap 10 BUN 10 Creatinine 1.10 H Estimated GFR 62 L POC Glucose 99 Random Glucose 124 H Calcium 8.1 L Magnesium 2.1 Blood Type Antibody Screen MTS Gel Crossmatch Imaging: Lower Extremity Ultrasound 09/24/18 00:00 CONCLUSION: Nonvisualization of the greater saphenous vein and portions of the lower legs bilaterally. Venous Doppler Study 09/24/18 00:00 CONCLUSION: Negative study. No venous thrombosis of either lower extremity. Carotid Doppler Study 09/28/18 10:09 CONCLUSION: 1. Right Internal Carotid Artery: No significant stenosis or atherosclerotic plaque is visualized. 2. Left Internal Carotid Artery: No significant stenosis or atherosclerotic plaque is visualized. Chest X-Ray 09/30/18 05:00 CONCLUSION: Mild bibasilar atelectasis. Objective Remarks: GENERAL: Patient is 58 yo intubated. SKIN: Warm and dry. HEAD: Normocephalic. EYES: No scleral icterus. No injection or drainage. NECK: Supple, trachea midline. No JVD or lymphadenopathy. CARDIOVASCULAR: Regular rate and rhythm without murmurs, gallops, or rubs. RESPIRATORY: Breath sounds equal bilaterally. No accessory muscle use. GASTROINTESTINAL: Abdomen soft, non-tender, nondistended. MUSCULOSKELETAL: No cyanosis, or edema. Neuro: Awake and alert Assessment and Plan - Assessment and Plan Plan: Assessment: 58yF POD 0 s/p off-pump CABG x 4 (RAMEY-->LAD, SVG-->OM1, SVG-->OM2, SVG-->PDA), complicated by immediate graft thrombosis and perioperative STEMI. Remains critically ill. Neuro: - Wean off Precedex drip. - frequent neuro checks. Patient is awake and alert. - avoid long-acting sedatives - will not wean sedation tonight- too critically ill. Resp: - Continue with vent support keep sats >92% - Bronchodilators, ICU vent bundle - hob elevated -SBT as betsey. CV: s/p off-pump CABG x 4 (RAMEY-->LAD, SVG-->OM1, SVG-->OM2, SVG-->PDA) 09/29 Immediate post-op STEMI Post-op Graft thrombosis Wean off Neosyn keep MAP>65mmHg On Heparin drip Contineu ASA, Lipitor, Plavix - HAKAN post-op: EF 45%, lateral and inferolateral hypokinesis, mild TR - chest tubes to suction- monitor CT drainage. Renal: - Monitor renal function, I/O's, electrolytes replacement per protocol. FEN/GI: - NPO - OG tube to LIWS Heme/ID: Hypercoagulable State Acute graft thrombosis -Monitor CBC, coags- on Heparin drip - f/u HIT, YARITZA ( doubt HIT) - Follow up on Hypercoag profile. Heme is following ID: -Montior for signs of infections ( fever, WBC) - perioperative abx per CTS Endo: Post-operative hyperglycemia - SSI with accuchecks Prophylaxis: - SCDs - heparin drip as above - ppi Lines: - 09/29 introducer sheath - 09/29 art line - 09/29 woods - 09/29 femoral arterial sheath: will d/c tonight. CCT 35 mins.
[2018-09-30] MEDS ORDERED: Dextrose 50% in Water 50 ML Vial IV.PUSH PRN (10:17)
--- NOTE | 2018-09-30 11:15 | ECHRPT ---
Indication: CORONARY ATHEROSCLEROSIS CONCLUSIONS The left ventricle is not well visualized. Normal left ventricular size. Mild concentric left ventricular hypertrophy. The left ventricular systolic function is moderately reduced with an estimated ejection fraction in the range of 40-45%. There is diffuse global hypokinesis with distinct regional wall motion abnormalities. There is mid anterolateral, apical, and inferoapical moderate hypokinesis present. Trace mitral valve regurgitation. The aortic valve is not well visualized. There is mild tricuspid valve regurgitation. The estimated pulmonary arterial pressure is 32 mmHg. The pulmonary valve is not well visualized. BP: / HR: Rhythm: Sinus Technical Quality:Poor FINDINGS LEFT VENTRICLE The left ventricle is not well visualized. Normal left ventricular size. Mild concentric left ventricular hypertrophy. The left ventricular systolic function is moderately reduced with an estimated ejection fraction in the range of 40-45%. There is diffuse global hypokinesis with distinct regional wall motion abnormalities. There is mid anterolateral, apical, and inferoapical moderate hypokinesis present. RIGHT VENTRICLE Normal right ventricular size and systolic function. LEFT ATRIUM The left atrial size is normal. RIGHT ATRIUM The right atrial size is normal. ATRIAL SEPTUM Normal atrial septal thickness without atrial level shunting by limited color doppler interrogation. AORTA The aortic root and proximal ascending aorta are normal in size on limited imaging. MITRAL VALVE Structurally normal mitral valve. Trace mitral valve regurgitation. AORTIC VALVE The aortic valve is not well visualized. TRICUSPID VALVE Structurally normal tricuspid valve. There is mild tricuspid valve regurgitation. The estimated pulmonary arterial pressure is 32 mmHg. PULMONARY VALVE The pulmonary valve is not well visualized. VESSELS The inferior vena cava is normal in size. PERICARDIUM No pericardial effusion. Varinder Correia MD, FACC (Electronically Signed) Final Date:30 September 2018 11:14 Amended: 30 September 2018 11:15
[2018-09-30] MEDS: Ranolazine 500 MG 12HR ER Tablet PO SCH ×3 (11:50→21:55)
[2018-09-30] MEDS: Senna/Docusate Sodium 8.6/50 MG Tablet PO SCH ×3 (11:51→21:56)
[2018-09-30] MEDS: Isosorbide Mononitrate 30 MG ER 24HR Tablet (Imdur) PO SCH ×2 (11:53→12:01)
[2018-09-30] MEDS: Sodium Chloride 0.9% 2 ML Flush BID IV.FLUSH SCH ×3 (11:53→21:56)
[2018-09-30] MEDS: Sertraline 50 MG Tablet PO SCH ×2 (12:02→12:03)
[2018-09-30] MEDS: Pantoprazole Inj 40 MG Vial IV.PUSH SCH (12:05)
--- NOTE | 2018-09-30 12:17 | P.PNCA ---
Subjective Interval history: Stable overnight Making urine Chest tube drainage as expected STs on EKG down extensively, looks like recent ME as expected Awake on the vent Medications and Allergies Active Medications: Active Medications Acetaminophen (Tylenol) 650 mg PO Q4H PRN PRN Reason: Temp > 100.4 Last Admin: 09/27/18 22:28 Dose: 650 mg Hydrocodone Bitart/Acetaminophen ([place] 5/325) 1 tab PO Q3H PRN PRN Reason: PAIN SCALE 1 TO 5 Al Hydroxide/Mg Hydroxide (Milk Of [place] Liq) 30 ml PO Q12H PRN PRN Reason: Mild Constipation Albuterol (Duoneb Neb (Prn)) 1 ampul NEB Q2HR NEB PRN PRN Reason: WHEEZING Albuterol (Duoneb Neb (Estelle)) 1 ampul NEB Q6HR NEB [facility] Last Admin: 09/30/18 09:49 Dose: 1 ampul Amiodarone HCl (Cordarone) 200 mg PO Q12HR [facility] Last Admin: 09/30/18 09:01 Dose: 200 mg Aspirin (Aspirin Chew) 81 mg PO DAILY [facility] Last Admin: 09/30/18 09:01 Dose: 81 mg Atorvastatin Calcium (Lipitor) 20 mg PO HS [facility] Last Admin: 09/29/18 21:28 Dose: 20 mg Bisacodyl (Dulcolax Supp) 10 mg RECTAL DAILY PRN PRN Reason: SEVERE CONSITIPATION Calcium Chloride (Calcium Chloride Inj) 0.5 gm IV.PUSH UNSCH PRN PRN Reason: SEE LABEL COMMENTS Chlorhexidine Gluconate (Hibiclens 4% Topical) 1 applicatio TOPICAL RESEARCH LIBRARIAN [facility] Stop: 10/01/18 10:12 Clopidogrel Bisulfate (Plavix) 75 mg PO DAILY [facility] Last Admin: 09/30/18 09:01 Dose: 75 mg Sodium Chloride 77.5 ml/Papaverine HCl 60 mg/Nitroglycerin 100 mcg/Diltiazem HCl 100 mg 0 ml IRRIGATION RESEARCH LIBRARIAN [facility] Stop: 10/01/18 10:12 Last Admin: 09/29/18 09:57 Dose: 1 bag Sodium Chloride 500 ml/ (Cefazolin Sodium 500 mg) 0 ml IRRIGATION RESEARCH LIBRARIAN [facility] Stop: 10/01/18 10:14 Last Admin: 09/29/18 09:58 Dose: 1 irrig.soln Dextrose (D50w Vial) 50 ml IV.PUSH UNSCH PRN PRN Reason: PER HYPOGLYCEMIA PROTOCOL Dextrose (D50w Vial) 50 ml IV.PUSH UNSCH PRN PRN Reason: PER HYPOGLYCEMIA PROTOCOL Epinephrine (Racepinephrine 2.25% Neb) 0.5 ml NEB UNSCH X1 PRN PRN Reason: STRIDOR Fentanyl Citrate (Fentanyl Inj) 25 mcg IV.PUSH Q1H PRN PRN Reason: BREAKTHROUGH PAIN Last Admin: 09/30/18 11:06 Dose: 25 mcg Glucagon (Glucagon Inj) 1 mg OTHER PRN PRN PRN Reason: for Hypoglycemia Protocol Insulin Human Regular 100 unit (/ Sodium Chloride) 100 mls @ 3 mls/hr IV.CONT TITRATE PRN; Protocol PRN Reason: See Protocol Calcium Chloride 1 gm/ Sodium (Chloride) 110 mls @ 100 mls/hr IV.SIG PRN PRN PRN Reason: SEE LABEL COMMENTS Last Infusion: 09/29/18 20:10 Dose: Infused Clevidipine (Cleviprex Inj) 25 mg in 50 mls @ 2 mls/hr IV.CONT TITRATE PRN; Protocol PRN Reason: Per protocol Lactated Ringer's (Lr 1000 Ml Inj) 500 mls @ 500 mls/hr IV.SIG .Q1H PRN PRN Reason: SEE LABEL COMMENTS Magnesium Sulfate 2 gm/ Sodium (Chloride) 100 mls @ 50 mls/hr IV.SIG PRN PRN PRN Reason: SEE LABEL COMMENTS Magnesium Sulfate 2 gm/ Sodium (Chloride) 100 mls @ 50 mls/hr IV.SIG PRN PRN PRN Reason: SEE LABEL COMMENTS Phenylephrine HCl 40 mg/ (Sodium Chloride) 500 mls @ 30 mls/hr IV.CONT TITRATE PRN; Protocol PRN Reason: See Protocol Potassium Chloride (Kcl 20 Meq Premix Inj) 20 meq in 100 mls @ 50 mls/hr IV.SIG PRN PRN PRN Reason: SEE LABEL COMMENTS Last Admin: 09/30/18 09:09 Dose: 50 mls/hr Potassium Chloride (Kcl 20 Meq Premix Inj) 20 meq in 100 mls @ 50 mls/hr IV.SIG PRN PRN PRN Reason: SEE LABEL COMMENTS Potassium Chloride (Kcl 20 Meq Premix Inj) 20 meq in 100 mls @ 50 mls/hr IV.SIG PRN PRN PRN Reason: SEE LABEL COMMENTS Last Infusion: 09/30/18 01:35 Dose: Infused Dexmedetomidine HCl 200 mcg/ (Sodium Chloride) 50 mls @ 3.85 mls/hr IV.CONT TITRATE PRN; Protocol PRN Reason: Per Protocol Last Titration: 09/30/18 05:02 Dose: 0.29 mcg/kg/hr, 5.77 mls/hr Cefazolin Sodium/Dextrose (Ancef 2 Gm Premix Inj) 2 gm in 50 mls @ 100 mls/hr IV.SIG Q8H [facility] Stop: 10/01/18 05:29 Last Infusion: 09/30/18 05:15 Dose: Infused Heparin Sodium/Dextrose (Heparin/D5w 25,000 U/250 Ml) 25,000 unit in 250 mls @ 0 mls/hr IV.CONT TITRATE PRN; Protocol PRN Reason: Per Protocol Last Admin: 09/30/18 02:34 Dose: 900 units/hr, 9 mls/hr Insulin Aspart (Novolog Insulin Correctional Sugar Inj) 20 unit SQ TIDAC [facility]; Protocol Last Admin: 09/28/18 17:50 Dose: 20 unit Insulin Aspart (Novolog Insulin Correctional Sugar Inj) 0 unit SQ 08,12,17,21, 03 [facility]; Protocol Last Admin: 09/30/18 03:00 Dose: Not Given Insulin Aspart (Novolog Insulin Correctional Sugar Inj) 0 unit SQ Q4HR [facility]; Protocol Isosorbide Mononitrate (Imdur) 30 mg PO DAILY [facility] Last Admin: 09/30/18 12:01 Dose: Not Given Lactulose (Lactulose Liq) 30 ml PO DAILY PRN PRN Reason: SEVERE CONSITIPATION Meperidine HCl (Demerol Inj) 12.5 mg IV.PUSH Q4H PRN PRN Reason: SHIVERING Metoprolol Tartrate (Lopressor) 12.5 mg PO RESEARCH LIBRARIAN [facility] Stop: 10/01/18 10:15 Morphine Sulfate (Morphine Inj) 2 mg IV.PUSH Q4H PRN PRN Reason: PAIN 6-10 Morphine Sulfate (Morphine Inj) 1 mg IV.PUSH Q10M PRN PRN Reason: PAIN SCALE 1 TO 5 Ondansetron HCl (Zofran Inj) 4 mg IV.PUSH Q6H PRN PRN Reason: NAUSEA OR VOMITING Pantoprazole Sodium (Protonix Inj) 40 mg IV.PUSH DAILY [facility] Last Admin: 09/30/18 12:05 Dose: 40 mg Phenylephrine HCl (Neosynephrine Inj) 0.1 mg IV.PUSH UNSCH PRN PRN Reason: SEE LABEL COMMENTS Potassium Chloride (K-Dur) 20 meq PO UNSCH PRN PRN Reason: SEE LABEL COMMENTS Potassium Chloride (K-Dur) 40 meq PO UNSCH PRN PRN Reason: SEE LABEL COMMENTS Ranolazine (Ranexa) 500 mg PO Q12H [facility] Last Admin: 09/30/18 12:02 Dose: Not Given Senna/Docusate Sodium (Jacqui-Colace) 1 tab PO BID [facility] Last Admin: 09/30/18 12:02 Dose: Not Given Sennosides (Senokot) 17.2 mg PO Q12H PRN PRN Reason: Moderate Constipation Sertraline HCl (Zoloft) 50 mg PO DAILY [facility] Last Admin: 09/30/18 12:03 Dose: 50 mg Sodium Bicarbonate (Sodium Bicarbonate 8.4% Inj) 50 meq IV.PUSH UNSCH PRN PRN Reason: SEE LABEL COMMENTS Sodium Bicarbonate (Sodium Bicarbonate 8.4% Inj) 100 meq IV.PUSH UNSCH PRN PRN Reason: SEE LABEL COMMENTS Sodium Chloride (Ns Flush) 2 ml IV.FLUSH BID [facility] Last Admin: 09/30/18 12:01 Dose: Not Given Sodium Chloride (Ns Flush) 2 ml IV.FLUSH PRN PRN PRN Reason: FLUSH AFTER USING IV ACCESS Temazepam (Restoril) 7.5 mg PO HS [facility] Last Admin: 09/29/18 21:32 Dose: Not Given Terbutaline Sulfate (Brethine Inj) 1 mg SQ ONCE PRN PRN Reason: Extravasation Terbutaline Sulfate (Brethine Inj) 1 mg SQ UNSCH PRN PRN Reason: For Extravasation Terbutaline Sulfate (Brethine Inj) 1 mg SQ UNSCH PRN PRN Reason: For Extravasation Allergies Allergy/AdvReac Type Severity Reaction Status Date / Time metoprolol Allergy Severe HALLUCINATI Verified 09/23/18 22:25 ONS famotidine Allergy Unknown RASH Verified 09/23/18 22:25 lisinopril Allergy Unknown Itching Verified 09/23/18 22:25 insulin detemir AdvReac Unknown Diarrhea Verified 09/23/18 22:25 Home Medications Medication Instructions Recorded Confirmed Type aspirin [Aspir-81] 81 mg PO DAILY 08/03/18 09/24/18 History atorvastatin 20 mg PO DAILY 08/03/18 09/24/18 History insulin glargine [Lantus U-100 25 unit SUB-Q DAILY 08/03/18 09/24/18 History Insulin] insulin lispro [Humalog U-100 45 unit SUB-Q DAILY 08/03/18 09/24/18 History Insulin] isosorbide mononitrate 30 mg PO QAM 08/03/18 09/24/18 History methocarbamol 500 mg PO QID 08/03/18 09/24/18 History nitroglycerin 0.3 mg SUBLINGUAL Q5-15M PRN 08/03/18 09/24/18 History sertraline 50 mg PO DAILY 08/03/18 09/24/18 History temazepam 7.5 mg PO HS 08/03/18 09/24/18 History ticagrelor [Brilinta] 90 mg PO BID 08/03/18 09/24/18 History Physical Exam Vital signs: Vital Signs 09/29/18 13:55 09/29/18 14:45 09/29/18 14:46 Temperature 98.4 F Pulse Rate 84 80 Respiratory Rate 10 L 10 L Blood Pressure 112/65 Pulse Oximetry 94 L 95 09/29/18 18:30 09/29/18 18:32 09/29/18 18:47 Temperature 97.6 F Pulse Rate 82 Respiratory Rate 15 20 Blood Pressure 117/67 Pulse Oximetry 99 100 09/29/18 19:00 09/29/18 19:59 09/29/18 23:00 Temperature 97.6 F 99.5 F Pulse Rate 80 85 Respiratory Rate 20 20 20 Blood Pressure 115/73 99/59 L Pulse Oximetry 99 100 100 09/29/18 23:09 09/30/18 00:54 09/30/18 03:00 Temperature 100 F H Pulse Rate 83 Respiratory Rate 20 17 19 Blood Pressure 127/71 Pulse Oximetry 99 100 09/30/18 03:59 09/30/18 04:00 09/30/18 07:00 Temperature 98.7 F Pulse Rate 85 83 85 Respiratory Rate 15 17 Blood Pressure 136/98 H Pulse Oximetry 99 96 09/30/18 07:58 09/30/18 09:15 09/30/18 09:30 Temperature 98.7 F Pulse Rate Respiratory Rate 14 17 Blood Pressure Pulse Oximetry 99 95 09/30/18 09:50 09/30/18 10:45 09/30/18 10:47 Temperature 99.5 F Pulse Rate 74 Respiratory Rate 16 19 Blood Pressure Pulse Oximetry 97 09/30/18 11:00 Temperature 99.5 F Pulse Rate 71 Respiratory Rate 17 Blood Pressure 104/76 Pulse Oximetry 98 Intake & Output 09/29/18 09/30/18 09/30/18 18:59 06:59 18:59 Intake Total 3360 / 3360 1870 / 1870 Output Total 1600 / 1600 3290 / 3290 Balance 1760 / 1760 -1420 / -1420 Weight 77.5 kg Intake: IV 110 / 110 1660 / 1660 Heparin/NS PF Inj 1,000 ML @ 0 10 / 10 mls/hr .ROUTE .STK-MED ONE Rx#: [id number] Ofirmev Inj 1,000 mg In 100 ml 400 / 400 @ 400 mls/hr IV.SIG Q6H [facility] Rx# :[id number] Buminate 5% Inj 250 ML @ 0 mls/ 750 / 750 hr IV.SIG .STK-MED ONE Rx#: [id number] Calcium Chloride Inj 1 GM In NS 110 / 110 Inj 100 ML @ 100 mls/hr IV.SIG PRN PRN Rx#:[id number] Magnesium Sulfate 1 gm/D5W 100 200 / 200 ml Premix 200 ML @ 0 mls/hr IV. SIG .STK-MED ONE Rx#:[id number] KCl 20 mEq Premix Inj 20 meq In 100 / 100 100 ml @ 50 mls/hr IV.SIG PRN PRN Rx#:[id number] Ancef 1 GM Premix Inj 1 gm In 50 / 50 50 ml @ 0 mls/hr IV.SIG .STK- MED ONE Rx#:[id number] Ancef 2 GM Premix Inj 2 gm In 50 / 50 100 / 100 50 ml @ 100 mls/hr IV.SIG Q8H [facility] Rx#:[id number] Oral 0 / 0 Tube Irrigant 110 / 110 Anesthesia Amount 3000 / 3000 Other 100 / 100 Cell Saver Amount 250 / 250 Output: Estimated Blood Loss 750 / 750 Urine Amount (Catheter) 850 / 850 2575 / 2575 Indwelling Temp Sensing 850 / 850 2575 / 2575 Catheter Gastric Drainage 425 / 425 Orogastric Tube 425 / 425 Chest Tube Drainage 290 / 290 Pleural/Mediastinal 290 / 290 Other: # Bowel Movements 0 Narrative: General: Patient is a middle-aged lady, she is laying in the critical care unit bed, she is intubated, she is mildly sedated. She is responsive. HEENT: Head atraumatic normal cephalic, conjunctivae are mildly pale, sclerae are anicteric, EOMI, PERRLA. Respiratory: Good air movement bilaterally, no rhonchi or rails. Cardiac vascular: Regular rate and rhythm, S1-S2 no obvious murmurs rubs gallops. Chest examination: Sternotomy surgical incision and surgical dressing noted. Chest drains are noted in the epigastric area. Abdominal exam: Recurrent belly, soft, positive bowel sounds, no obvious organ enlargement. Lower extremities: Left lower extremity: Has been bandaged, no obvious tenderness noted. Right lower extremity in compression stockings. Drains: Chest drains are draining serosanguineous liquid. VIDEO SPECIALIST: She is moving all 4 limbs spontaneously. She is tends to respond in track and nods yes or no to questions. Skin examination: Nonfocal. - Urinary Catheter Management Indwelling Temp Sensing Catheter Cath placed during this visit: yes Reason for continuing: Hourly intake/output Insertion date: 09/29/18 Insertion time: 08:30 Results 09/30/18 05:30 09/30/18 05:30 Cardiac Enzymes 09/29/18 Range/Units 19:25 Lactate Dehydrogenase 367 H (84-246) U/L Coagulation 09/28/18 09/28/18 09/29/18 Range/Units 12:53 18:25 19:25 PT (9.8-11.6) sec APTT 40.8 H 42.7 H 130.5 H* D (23.4-31.7) sec 09/29/18 09/30/18 09/30/18 Range/Units 19:25 02:15 09:10 PT 11.6 11.2 (9.8-11.6) sec APTT 25.2 D 63.0 H D (23.4-31.7) sec CBC 09/29/18 09/30/18 Range/Units 19:25 05:30 WBC 10.9 8.8 (4.0-11.0) th/mm3 RBC 3.57 L 2.97 L (4.00-5.30) mil/mm3 Hgb 10.2 L 9.0 L (11.6-15.3) gm/dL Hct 30.5 L 25.0 L (35.0-46.0) % Plt Count 205 171 (150-450) th/mm3 Comprehensive Metabolic Panel 09/30/18 Range/Units 05:30 Sodium 142 (136-145) meq/L Potassium 4.0 (3.5-5.1) meq/L Chloride 111 H (98-107) meq/L Carbon Dioxide 20.8 L (21.0-32.0) meq/L BUN 10 (7-18) mg/dL Creatinine 1.10 H (0.50-1.00) mg/dL Calcium 8.1 L (8.5-10.1) mg/dL Intake and Output 09/29/18 09/30/18 09/30/18 22:59 06:59 14:59 Intake Total 920 / 920 1160 / 1160 Output Total 1910 / 1910 1380 / 1380 Balance -990 / -990 -220 / -220 Intake: IV 720 / 720 950 / 950 Heparin/NS PF Inj 1,000 ML @ 0 10 / 10 mls/hr .ROUTE .STK-MED ONE Rx#: [id number] Ofirmev Inj 1,000 mg In 100 ml 100 / 100 300 / 300 @ 400 mls/hr IV.SIG Q6H [facility] Rx# :[id number] Buminate 5% Inj 250 ML @ 0 mls/ 250 / 250 500 / 500 hr IV.SIG .STK-MED ONE Rx#: [id number] Calcium Chloride Inj 1 GM In NS 110 / 110 Inj 100 ML @ 100 mls/hr IV.SIG PRN PRN Rx#:[id number] Magnesium Sulfate 1 gm/D5W 100 200 / 200 ml Premix 200 ML @ 0 mls/hr IV. SIG .STK-MED ONE Rx#:[id number] KCl 20 mEq Premix Inj 20 meq In 100 / 100 100 ml @ 50 mls/hr IV.SIG PRN PRN Rx#:[id number] Ancef 2 GM Premix Inj 2 gm In 50 / 50 50 / 50 50 ml @ 100 mls/hr IV.SIG Q8H [facility] Rx#:[id number] Oral 0 / 0 Tube Irrigant 110 / 110 Anesthesia Amount 200 / 200 Other 100 / 100 Output: Urine Amount (Catheter) 1800 / 1800 775 / 775 Indwelling Temp Sensing 1800 / 1800 775 / 775 Catheter Gastric Drainage 425 / 425 Orogastric Tube 425 / 425 Chest Tube Drainage 110 / 110 180 / 180 Pleural/Mediastinal 110 / 110 180 / 180 Other: # Bowel Movements 0 Weight 77.5 kg - Imaging and Cardiology Imaging: Impressions Carotid Doppler Study 09/28/18 10:09 CONCLUSION: 1. Right Internal Carotid Artery: No significant stenosis or atherosclerotic plaque is visualized. 2. Left Internal Carotid Artery: No significant stenosis or atherosclerotic plaque is visualized. Chest X-Ray 09/29/18 13:35 CONCLUSION: Moderate pulmonary edema. Chest X-Ray 09/30/18 05:00 CONCLUSION: Mild bibasilar atelectasis. Assessment and Plan - Assessment (1) Unstable angina Code(s): I20.0 - Unstable angina Status: Acute (2) CAD (coronary artery disease), [place] coronary artery Code(s): I25.10 - Atherosclerotic heart disease of [place] coronary artery without angina pectoris Status: Acute (3) Diabetes mellitus Code(s): E11.9 - Type 2 diabetes mellitus without complications Status: Acute (4) Acute ST elevation myocardial infarction (STEMI) Code(s): I21.3 - ST elevation (STEMI) myocardial infarction of unspecified site Status: Acute - Plan 1) CABG x4 2) Jacqui-procedure STEMI Found to have extensive thrombus in both [place] vessels as well as grafts RAMEY to LAD with competitive flow, most likely will occlude Thrombus in LAD aspirated, distal LAD unable to pass wire past the anastomosis site SVG to OM1/OM2 occluded with extensive thrombus DESx2 to [place] OM1 MAXWELL to [place] LCx POBA of [place] OM2 RCA stents patent PDA occluded where it was previously jailed Unable to find SVG to PDA [place] to be small vessel supplying very little territory ASA/Plavix Possible change to Brilinta once stable 3) Intubated Working toward extubation 4) Hypercoaguable state Risk of HIT low, but will send labs Appreciate Hematology consultation Most likely anticoagulation/antiplatelet combination on discharge 5) Bedside HAKAN done with Dr. Enriquez EF 45%, inferolateral wall akinetic No significant valvulopathies Bedside echo EF 40-45% 6) Discussed extensively with the family this morning with updates on condition
--- NOTE | 2018-09-30 15:45 | ECG ---
Date Performed: 09/29/2018 Time Performed: 14:09:08 PTAGE: 58 years EKG: CONSIDER ACUTE ST ELEVATION CO Sinus rhythm Lead(s) unsuitable for analysis: V6 Inferior and ant/septal ST elevation, CONSIDER ACUTE INFARCT Lat eral T wave changes are nonspecific Compared to previous tracing, there is an acute inferior and antr olateral infarction suggesting extensive infarction Abnormal ECG PREVIOUS TRACING : 09/23/2018 22.38 DOCTOR: Shabana Joyce Interpretating Date/Time 09/30/2018 15:43:18
--- NOTE | 2018-09-30 15:45 | ECG ---
Date Performed: 09/29/2018 Time Performed: 18:49:32 PTAGE: 58 years EKG: CONSIDER ACUTE ST ELEVATION AR Sinus rhythm Left axis deviation Inferior infarct - age undetermined Anteroseptal ST elevation, CONSIDER ACUTE IN FARCT Low QRS voltages in precordial leads Compared to previous tracing, evolving inferolateral infar ction continues Abnormal ECG NO PREVIOUS TRACING DOCTOR: Shabana Joyce Interpretating Date/Time 09/30/2018 15:43:43
--- NOTE | 2018-09-30 15:47 | ECG ---
Date Performed: 09/30/2018 Time Performed: 05:03:48 PTAGE: 58 years EKG: Sinus rhythm . Left axis deviation Inferior infarct - age undetermined Septal T wave changes are nonspecific Low Q RS voltages in precordial leads Compared to previous tracing, the ST segments have improved. Inferior infarction changes and mild anterolateral infarction changes are present Abnormal ECG PREVIOUS TRACING : 09/29/2018 18.49 DOCTOR: Shabana Joyce Interpretating Date/Time 09/30/2018 15:44:51
[2018-10-01] MEDS: Insulin NovoLOG Aspart Correctional Sugar Inj SQ SCH ×17 (00:15→21:00)
[2018-10-01] MEDS: fentaNYL Citrate Inj 100 MCG/2 ML Ampul IV.PUSH PRN ×5 (01:32→20:44)
[2018-10-01] MEDS: Heparin Drip 25,000 UNIT/250 ML BAG IV.CONT PRN ×2 (02:46→19:00)
[2018-10-01 04:42] LABS: Baso % (Auto) 0.4 % (0.0-2.0); Eos # (Auto) 0.1 th/mm3 (0.0-0.4); Eos % (Auto) 0.8 % (0.0-4.0); Hematocrit 25.9 % (35.0-46.0); Hemoglobin 9.1 gm/dL (11.6-15.3); Lymph # (Auto) 3.1 th/mm3 (1.0-4.8); Lymph % (Auto) 31.1 % (9.0-44.0); Mean Corpuscular HGB Conc 35.1 % (32.0-36.0); Mean Corpuscular Hemoglobin 30.2 pg (27.0-34.0); Mono # (Auto) 0.7 th/mm3 (0.0-0.9); Mono % (Auto) 7.3 % (0.0-8.0); Neut % (Auto) 60.4 % (16.0-70.0); Platelet Count 165 th/mm3 (150-450); Red Blood Count 3.01 mil/mm3 (4.00-5.30); Red Cell Distribution Width 15.1 % (11.6-17.2)
[2018-10-01 05:07] LABS: Albumin 2.6 g/dL (3.4-5.0); Anion Gap 10 meq/L (5-15); Aspartate Aminotransferase 816 U/L (15-37); Blood Urea Nitrogen 13 mg/dL (7-18); Calcium 7.6 mg/dL (8.5-10.1); Chloride 107 meq/L (98-107); Glomerular Filtration Rate 72 mL/min (>89); Glucose,Random 205 mg/dL (74-106); Magnesium 1.8 mg/dL (1.5-2.5); Potassium 4.5 meq/L (3.5-5.1); Sodium 139 meq/L (136-145)
[2018-10-01 05:08] LABS: Alanine Aminotransferase 462 U/L (10-53); Phosphorus 3.3 mg/dL (2.5-4.9)
[2018-10-01 05:10] LABS: Alkaline Phosphatase 68 U/L (45-117); Total Protein 5.6 g/dL (6.4-8.2)
--- NOTE | 2018-10-01 06:16 | ECG ---
Date Performed: 09/30/2018 Time Performed: 10:49:48 PTAGE: 58 years EKG: Sinus rhythm Left axis deviation Inferior infarct - age undetermined QRS changes V3/V4 may be due to LVH but salvador ot rule out anterior infarct Low QRS voltages in precordial leads Abnormal ECG No significant change from prior electrocardiogram. DOCTOR: Jatin Santos Interpretating Date/Time 10/01/2018 06:15:40
[2018-10-01] MEDS: ceFAZolin 2 GM Premix Inj 2 GM/50 ML PIGGYBACK IV.SIG SCH (07:37)
--- NOTE | 2018-10-01 07:55 | P.PNCV ---
- Note Subjective/Hospital Course: sts data discussed with pt RISK SCORES About the STS Risk Calculator Procedure: CAB Only Risk of Mortality: 0.745% Morbidity or Mortality: 8.994% Long Length of Stay: 3.108% Short Length of Stay: 56.144% Permanent Stroke: 0.567% Prolonged Ventilation: 6.252% DSW Infection: 0.387% Renal Failure: 1.922% Reoperation: 3.349% 58-year-old female with a significant history of coronary artery disease the presented to the ED for evaluation of chest pain. Patient has had chest pain for about a week. Per patient is progressively getting worse. She denies any urinary or bowel movement issues. She states that the pain gets worse with stress and movement. She took 4 nitro with minimal improvement of the symptoms which was what prompted her evaluation. Patient was admitted recently in July for evaluation of similar. She had another heart cath that showed . Significant multivessel disease, although overall small vessels. She did not had stenting at that time and they thought that she could have increase of her medications and may be this will help with her symptoms but she continues to have symptoms. PMH: CAD/ TX/ Stents/ HTN, HLP, DM insulin dependent EF 58% 09/26 pt on heparin gtt, 3 mcq of NTG will resume imdur and dc NTG, pt pain free eval PRU in am for timing of surgery off Brilinta since Thursday 09/27 off NTG gtt / on imdur/ heparin gtt, painfree PRU>250 stable for surgery on 09/28 doing well, no chest pain during the night on heparin gtt stable for surgery in am 09/29 SURGICAL PROCEDURE 1. Urgent Off-pump Coronary Artery Bypass Grafting x 4 with Left Internal Mammary Artery (RAMEY) to Left Anterior Descending (LAD), reverse saphenous vein graft to obtuse Marginal1 and sequentially to the Obtuse Marginal 2 branches of the left Circumflex artery, reverse saphenous vein graft to the posterior Descending branch of the right Coronary artery 2. Left leg Endoscopic Vein [place] 3. Intraoperative Vein Mapping. 09/30 Clinically and hemodynamic is stable Events noted with hyper acute thrombosis of all the grafts. PCI to the circumflex distribution Greatly appreciate Dr. Melissa and Dr. Enriqeuz's assistance in her care Wean to extubate today Presently on aspirin Plavix and heparin drip. Will defer to Dr. Melissa regarding long-term antiplatelet therapy Greatly appreciate Dr. Curry's input regarding further workup of her thrombotic state 10/01 Doing well this morning Awake alert oriented and responds appropriately verbal commands Weaning ventilator with plans to extubate today Hemodynamically stable Maintain chest tubes to drainage for now Objective: Vital Signs - 24 hr 09/30/18 07:58 09/30/18 09:15 09/30/18 09:30 Temperature 98.7 F Pulse Rate Respiratory Rate 14 17 Blood Pressure Pulse Oximetry 99 95 09/30/18 09:50 09/30/18 10:45 09/30/18 10:47 Temperature 99.5 F Pulse Rate 74 Respiratory Rate 16 19 Blood Pressure Pulse Oximetry 97 09/30/18 11:00 09/30/18 14:22 09/30/18 15:00 Temperature 99.5 F 99.1 F Pulse Rate 71 75 Respiratory Rate 17 15 14 Blood Pressure 104/76 119/70 Pulse Oximetry 98 98 09/30/18 15:28 09/30/18 17:34 09/30/18 19:00 Temperature 102.7 F H Pulse Rate 72 78 Respiratory Rate 15 16 15 Blood Pressure 106/74 Pulse Oximetry 99 09/30/18 20:02 09/30/18 23:00 10/01/18 01:03 Temperature 98.2 F Pulse Rate 80 71 Respiratory Rate 16 14 15 Blood Pressure 97/63 L Pulse Oximetry 98 98 10/01/18 02:05 10/01/18 03:00 10/01/18 03:23 Temperature 100.3 F H Pulse Rate 84 69 Respiratory Rate 14 14 15 Blood Pressure 103/73 Pulse Oximetry 10/01/18 04:00 10/01/18 04:20 10/01/18 05:30 Temperature Pulse Rate Respiratory Rate 15 19 16 Blood Pressure Pulse Oximetry 97 Labs: Laboratory Results - last 12 hr 09/28/18 09/30/18 09/30/18 04:47 20:55 21:30 WBC RBC Hgb Hct MCV MCH MCHC RDW Plt Count MPV Neut % (Auto) Lymph % (Auto) [place] % (Auto) Eos % (Auto) Baso % (Auto) Neut # (Auto) Lymph # (Auto) [place] # (Auto) Eos # (Auto) Baso # (Auto) WBC Differential Differential Comment APTT Sodium Potassium Chloride Carbon Dioxide Anion Gap BUN Creatinine Estimated GFR POC Glucose 196 H 196 H Random Glucose Calcium Phosphorus Magnesium Total Bilirubin AST ALT Alkaline Phosphatase Total Protein Albumin MTS Gel Crossmatch See Detail 10/01/18 10/01/18 10/01/18 00:13 04:00 04:00 WBC 10.0 RBC 3.01 L Hgb 9.1 L Hct 25.9 L MCV 86.0 MCH 30.2 MCHC 35.1 RDW 15.1 Plt Count 165 MPV 9.0 Neut % (Auto) 60.4 Lymph % (Auto) 31.1 [place] % (Auto) 7.3 Eos % (Auto) 0.8 Baso % (Auto) 0.4 Neut # (Auto) 6.0 Lymph # (Auto) 3.1 [place] # (Auto) 0.7 Eos # (Auto) 0.1 Baso # (Auto) 0.0 WBC Differential . Differential Comment Auto diff final APTT Sodium 139 Potassium 4.5 Chloride 107 Carbon Dioxide 22.0 Anion Gap 10 BUN 13 Creatinine 0.97 Estimated GFR 72 L POC Glucose 203 H Random Glucose 205 H Calcium 7.6 L Phosphorus 3.3 Magnesium 1.8 Total Bilirubin 0.9 AST 816 H ALT 462 H Alkaline Phosphatase 68 Total Protein 5.6 L D Albumin 2.6 L MTS Gel Crossmatch 10/01/18 10/01/18 04:00 04:11 WBC RBC Hgb Hct MCV MCH MCHC RDW Plt Count MPV Neut % (Auto) Lymph % (Auto) [place] % (Auto) Eos % (Auto) Baso % (Auto) Neut # (Auto) Lymph # (Auto) [place] # (Auto) Eos # (Auto) Baso # (Auto) WBC Differential Differential Comment APTT 64.8 H Sodium Potassium Chloride Carbon Dioxide Anion Gap BUN Creatinine Estimated GFR POC Glucose 193 H Random Glucose Calcium Phosphorus Magnesium Total Bilirubin AST ALT Alkaline Phosphatase Total Protein Albumin MTS Gel Crossmatch Result Diagrams: 10/01/18 04:00 10/01/18 04:00 - Plan (1) CAD (coronary artery disease), [place] coronary artery Plan: ASA, statin Heparin gtt long acting nitrates stable for surgery on (2) Diabetes mellitus Plan: diabetic diet insulin sliding scale HGB A1C 8.6 (3) Unstable angina Plan: pain free at this time (4) Renal insufficiency Plan: indices improving
[2018-10-01] MEDS: Pantoprazole Inj 40 MG Vial IV.PUSH SCH (08:46)
[2018-10-01] MEDS: Amiodarone 200 MG Tablet PO SCH ×2 (08:46→20:43)
[2018-10-01] MEDS: Sertraline 50 MG Tablet PO SCH (08:46)
[2018-10-01] MEDS: Senna/Docusate Sodium 8.6/50 MG Tablet PO SCH ×2 (08:46→20:43)
[2018-10-01] MEDS: Sodium Chloride 0.9% 2 ML Flush BID IV.FLUSH SCH ×2 (08:47→20:43)
[2018-10-01] MEDS: Acetaminophen 325 MG Tablet PO PRN (09:35)
--- NOTE | 2018-10-01 09:47 | P.PNCA ---
Subjective Interval history: Intubated. Alert. Awake. Complains of being uncomfortable, dyspnea. No angina, dizziness, palpitations. Medications and Allergies Active Medications: Active Medications Acetaminophen (Tylenol) 650 mg PO Q4H PRN PRN Reason: Temp > 100.4 Last Admin: 10/01/18 09:35 Dose: 650 mg Hydrocodone Bitart/Acetaminophen ([place] 5/325) 1 tab PO Q3H PRN PRN Reason: PAIN SCALE 1 TO 5 Al Hydroxide/Mg Hydroxide (Milk Of Nils Jung) 30 ml PO Q12H PRN PRN Reason: Mild Constipation Albuterol (Duoneb Neb (Prn)) 1 ampul NEB Q2HR NEB PRN PRN Reason: WHEEZING Albuterol (Duoneb Neb (Estelle)) 1 ampul NEB Q6HR NEB [facility] Last Admin: 10/01/18 03:22 Dose: 1 ampul Amiodarone HCl (Cordarone) 200 mg PO Q12HR [facility] Last Admin: 10/01/18 08:46 Dose: 200 mg Aspirin (Aspirin Chew) 81 mg PO DAILY [facility] Last Admin: 10/01/18 08:46 Dose: 81 mg Atorvastatin Calcium (Lipitor) 20 mg PO HS [facility] Last Admin: 09/30/18 21:55 Dose: 20 mg Bisacodyl (Dulcolax Supp) 10 mg RECTAL DAILY PRN PRN Reason: SEVERE CONSITIPATION Calcium Chloride (Calcium Chloride Inj) 0.5 gm IV.PUSH UNSCH PRN PRN Reason: SEE LABEL COMMENTS Chlorhexidine Gluconate (Hibiclens 4% Topical) 1 applicatio TOPICAL [employer] [facility] Stop: 10/01/18 10:12 Clopidogrel Bisulfate (Plavix) 75 mg PO DAILY [facility] Last Admin: 10/01/18 08:46 Dose: 75 mg Sodium Chloride 77.5 ml/Papaverine HCl 60 mg/Nitroglycerin 100 mcg/Diltiazem HCl 100 mg 0 ml IRRIGATION [employer] [facility] Stop: 10/01/18 10:12 Last Admin: 09/29/18 09:57 Dose: 1 bag Sodium Chloride 500 ml/ (Cefazolin Sodium 500 mg) 0 ml IRRIGATION [employer] [facility] Stop: 10/01/18 10:14 Last Admin: 09/29/18 09:58 Dose: 1 irrig.soln Dextrose (D50w Vial) 50 ml IV.PUSH UNSCH PRN PRN Reason: PER HYPOGLYCEMIA PROTOCOL Dextrose (D50w Vial) 50 ml IV.PUSH UNSCH PRN PRN Reason: PER HYPOGLYCEMIA PROTOCOL Epinephrine (Racepinephrine 2.25% Neb) 0.5 ml NEB UNSCH X1 PRN PRN Reason: STRIDOR Fentanyl Citrate (Fentanyl Inj) 25 mcg IV.PUSH Q1H PRN PRN Reason: BREAKTHROUGH PAIN Last Admin: 10/01/18 07:39 Dose: 25 mcg Glucagon (Glucagon Inj) 1 mg OTHER PRN PRN PRN Reason: for Hypoglycemia Protocol Insulin Human Regular 100 unit (/ Sodium Chloride) 100 mls @ 3 mls/hr IV.CONT TITRATE PRN; Protocol PRN Reason: See Protocol Calcium Chloride 1 gm/ Sodium (Chloride) 110 mls @ 100 mls/hr IV.SIG PRN PRN PRN Reason: SEE LABEL COMMENTS Last Infusion: 09/29/18 20:10 Dose: Infused Clevidipine (Cleviprex Inj) 25 mg in 50 mls @ 2 mls/hr IV.CONT TITRATE PRN; Protocol PRN Reason: Per protocol Lactated Ringer's (Lr 1000 Ml Inj) 500 mls @ 500 mls/hr IV.SIG .Q1H PRN PRN Reason: SEE LABEL COMMENTS Magnesium Sulfate 2 gm/ Sodium (Chloride) 100 mls @ 50 mls/hr IV.SIG PRN PRN PRN Reason: SEE LABEL COMMENTS Last Admin: 10/01/18 09:06 Dose: 50 mls/hr Magnesium Sulfate 2 gm/ Sodium (Chloride) 100 mls @ 50 mls/hr IV.SIG PRN PRN PRN Reason: SEE LABEL COMMENTS Phenylephrine HCl 40 mg/ (Sodium Chloride) 500 mls @ 30 mls/hr IV.CONT TITRATE PRN; Protocol PRN Reason: See Protocol Potassium Chloride (Kcl 20 Meq Premix Inj) 20 meq in 100 mls @ 50 mls/hr IV.SIG PRN PRN PRN Reason: SEE LABEL COMMENTS Last Admin: 09/30/18 09:09 Dose: 50 mls/hr Potassium Chloride (Kcl 20 Meq Premix Inj) 20 meq in 100 mls @ 50 mls/hr IV.SIG PRN PRN PRN Reason: SEE LABEL COMMENTS Potassium Chloride (Kcl 20 Meq Premix Inj) 20 meq in 100 mls @ 50 mls/hr IV.SIG PRN PRN PRN Reason: SEE LABEL COMMENTS Last Infusion: 09/30/18 01:35 Dose: Infused Dexmedetomidine HCl 200 mcg/ (Sodium Chloride) 50 mls @ 3.85 mls/hr IV.CONT TITRATE PRN; Protocol PRN Reason: Per Protocol Last Titration: 09/30/18 21:59 Dose: 0.4 mcg/kg/hr, 7.7 mls/hr Heparin Sodium/Dextrose (Heparin/D5w 25,000 U/250 Ml) 25,000 unit in 250 mls @ 0 mls/hr IV.CONT TITRATE PRN; Protocol PRN Reason: Per Protocol Last Admin: 10/01/18 02:46 Dose: 900 units/hr, 9 mls/hr Acetaminophen (Ofirmev Inj) 1,000 mg in 100 mls @ 400 mls/hr IV.SIG Q6H PRN PRN Reason: PRN PAIN SCALE 1-10 &/OR FEVER Insulin Aspart (Novolog Insulin Correctional Sugar Inj) 20 unit SQ TIDAC [facility]; Protocol Last Admin: 09/30/18 21:32 Dose: Not Given Insulin Aspart (Novolog Insulin Correctional Sugar Inj) 0 unit SQ 08,12,17,21, 03 [facility]; Protocol Last Admin: 09/30/18 21:01 Dose: 5 unit Insulin Aspart (Novolog Insulin Correctional Sugar Inj) 0 unit SQ Q4HR [facility]; Protocol Last Admin: 10/01/18 08:48 Dose: 3 unit Isosorbide Mononitrate (Imdur) 30 mg PO DAILY [facility] Last Admin: 09/30/18 12:01 Dose: Not Given Lactulose (Lactulose Liq) 30 ml PO DAILY PRN PRN Reason: SEVERE CONSITIPATION Meperidine HCl (Demerol Inj) 12.5 mg IV.PUSH Q4H PRN PRN Reason: SHIVERING Metoprolol Tartrate (Lopressor) 12.5 mg PO [employer] [facility] Stop: 10/01/18 10:15 Morphine Sulfate (Morphine Inj) 2 mg IV.PUSH Q4H PRN PRN Reason: PAIN 6-10 Morphine Sulfate (Morphine Inj) 1 mg IV.PUSH Q10M PRN PRN Reason: PAIN SCALE 1 TO 5 Ondansetron HCl (Zofran Inj) 4 mg IV.PUSH Q6H PRN PRN Reason: NAUSEA OR VOMITING Pantoprazole Sodium (Protonix Inj) 40 mg IV.PUSH DAILY [facility] Last Admin: 10/01/18 08:46 Dose: 40 mg Phenylephrine HCl (Neosynephrine Inj) 0.1 mg IV.PUSH UNSCH PRN PRN Reason: SEE LABEL COMMENTS Potassium Chloride (K-Dur) 20 meq PO UNSCH PRN PRN Reason: SEE LABEL COMMENTS Potassium Chloride (K-Dur) 40 meq PO UNSCH PRN PRN Reason: SEE LABEL COMMENTS Ranolazine (Ranexa) 500 mg PO Q12H [facility] Last Admin: 09/30/18 21:55 Dose: 500 mg Senna/Docusate Sodium (Jacqui-Colace) 1 tab PO BID [facility] Last Admin: 10/01/18 08:46 Dose: 1 tab Sennosides (Senokot) 17.2 mg PO Q12H PRN PRN Reason: Moderate Constipation Sertraline HCl (Zoloft) 50 mg PO DAILY [facility] Last Admin: 10/01/18 08:46 Dose: 50 mg Sodium Bicarbonate (Sodium Bicarbonate 8.4% Inj) 50 meq IV.PUSH UNSCH PRN PRN Reason: SEE LABEL COMMENTS Sodium Bicarbonate (Sodium Bicarbonate 8.4% Inj) 100 meq IV.PUSH UNSCH PRN PRN Reason: SEE LABEL COMMENTS Sodium Chloride (Ns Flush) 2 ml IV.FLUSH BID [facility] Last Admin: 10/01/18 08:47 Dose: 2 ml Sodium Chloride (Ns Flush) 2 ml IV.FLUSH PRN PRN PRN Reason: FLUSH AFTER USING IV ACCESS Temazepam (Restoril) 7.5 mg PO HS [facility] Last Admin: 09/30/18 22:21 Dose: Not Given Terbutaline Sulfate (Brethine Inj) 1 mg SQ ONCE PRN PRN Reason: Extravasation Terbutaline Sulfate (Brethine Inj) 1 mg SQ UNSCH PRN PRN Reason: For Extravasation Terbutaline Sulfate (Brethine Inj) 1 mg SQ UNSCH PRN PRN Reason: For Extravasation Allergies Allergy/AdvReac Type Severity Reaction Status Date / Time metoprolol Allergy Severe HALLUCINATI Verified 09/23/18 22:25 ONS famotidine Allergy Unknown RASH Verified 09/23/18 22:25 lisinopril Allergy Unknown Itching Verified 09/23/18 22:25 insulin detemir AdvReac Unknown Diarrhea Verified 09/23/18 22:25 Home Medications Medication Instructions Recorded Confirmed Type aspirin [Aspir-81] 81 mg PO DAILY 08/03/18 09/24/18 History atorvastatin 20 mg PO DAILY 08/03/18 09/24/18 History insulin glargine [Lantus U-100 25 unit SUB-Q DAILY 08/03/18 09/24/18 History Insulin] insulin lispro [Humalog U-100 45 unit SUB-Q DAILY 08/03/18 09/24/18 History Insulin] isosorbide mononitrate 30 mg PO QAM 08/03/18 09/24/18 History methocarbamol 500 mg PO QID 08/03/18 09/24/18 History nitroglycerin 0.3 mg SUBLINGUAL Q5-15M PRN 08/03/18 09/24/18 History sertraline 50 mg PO DAILY 08/03/18 09/24/18 History temazepam 7.5 mg PO HS 08/03/18 09/24/18 History ticagrelor [Brilinta] 90 mg PO BID 08/03/18 09/24/18 History Physical Exam Vital signs: Vital Signs 09/30/18 09:50 09/30/18 10:45 09/30/18 10:47 Temperature 99.5 F Pulse Rate 74 Respiratory Rate 16 19 Blood Pressure Pulse Oximetry 97 09/30/18 11:00 09/30/18 14:22 09/30/18 15:00 Temperature 99.5 F 99.1 F Pulse Rate 71 75 Respiratory Rate 17 15 14 Blood Pressure 104/76 119/70 Pulse Oximetry 98 98 09/30/18 15:28 09/30/18 17:34 09/30/18 19:00 Temperature 102.7 F H Pulse Rate 72 79 Respiratory Rate 15 16 15 Blood Pressure 106/74 Pulse Oximetry 99 09/30/18 20:02 09/30/18 23:00 10/01/18 01:03 Temperature 98.2 F Pulse Rate 80 76 Respiratory Rate 16 14 15 Blood Pressure 97/63 L Pulse Oximetry 98 98 10/01/18 02:05 10/01/18 03:00 10/01/18 03:23 Temperature 100.3 F H Pulse Rate 77 69 Respiratory Rate 14 14 15 Blood Pressure 103/73 Pulse Oximetry 10/01/18 04:00 10/01/18 04:20 10/01/18 05:30 Temperature Pulse Rate Respiratory Rate 15 19 16 Blood Pressure Pulse Oximetry 97 Intake & Output 09/30/18 10/01/18 10/01/18 18:59 06:59 18:59 Intake Total 800 / 800 350 / 350 Output Total 640 / 640 717 / 717 Balance 160 / 160 -367 / -367 Weight 80.5 kg Intake: IV 100 / 100 350 / 350 Precedex Inj 200 MCG In NS Inj 50 / 50 50 / 50 48 ML @ 0.2 MCG/KG/HR 3.85 mls/ hr IV.CONT TITRATE PRN Rx#: [id number] Heparin/D5W 25,000 U/250 mL 25, 250 / 250 000 unit In 250 ml @ Per Protocol IV.CONT TITRATE PRN Rx #:[id number] Ancef 2 GM Premix Inj 2 gm In 50 / 50 50 / 50 50 ml @ 100 mls/hr IV.SIG Q8H ESTELLE Rx#:[id number] Oral 0 / 0 Other 700 / 700 Output: Urine 537 / 537 Urine Amount (Catheter) 365 / 365 Indwelling Temp Sensing 365 / 365 Catheter Gastric Drainage 175 / 175 Orogastric Tube 175 / 175 Chest Tube Drainage 100 / 100 180 / 180 Pleural/Mediastinal 100 / 100 upper abdomen 180 / 180 - Constitutional no acute distress - Routine Neck Exam Absent: JVD - Routine Respiratory Exam Comments: Lungs clear anteriorly. - Routine Cardiovascular Exam Present: RRR, S1, S2. Absent: murmur, gallop - Routine Abdominal Exam Present: soft, normoactive bowel sounds. Absent: tenderness, organomegaly - Routine Extremities Exam Absent: cyanosis, clubbing, edema - Urinary Catheter Management Indwelling Temp Sensing Catheter Cath placed during this visit: yes Reason for continuing: Hourly intake/output Insertion date: 09/29/18 Insertion time: 08:30 Results 10/01/18 04:00 10/01/18 04:00 Cardiac Enzymes 09/29/18 10/01/18 Range/Units 19:25 04:00 AST 816 H (15-37) U/L Lactate Dehydrogenase 367 H (84-246) U/L Coagulation 09/29/18 09/29/18 09/30/18 Range/Units 19:25 19:25 02:15 PT 11.6 11.2 (9.8-11.6) sec APTT 130.5 H* D 25.2 D (23.4-31.7) sec 09/30/18 09/30/18 10/01/18 Range/Units 09:10 17:50 04:00 PT (9.8-11.6) sec APTT 63.0 H D 65.2 H 64.8 H (23.4-31.7) sec CBC 09/29/18 09/30/18 10/01/18 Range/Units 19:25 05:30 04:00 WBC 10.9 8.8 10.0 (4.0-11.0) th/mm3 RBC 3.57 L 2.97 L 3.01 L (4.00-5.30) mil/mm3 Hgb 10.2 L 9.0 L 9.1 L (11.6-15.3) gm/dL Hct 30.5 L 25.0 L 25.9 L (35.0-46.0) % Plt Count 205 171 165 (150-450) th/mm3 Neut # (Auto) 6.0 (1.8-7.7) th/mm3 Lymph # (Auto) 3.1 (1.0-4.8) th/mm3 [place] # (Auto) 0.7 (0.0-0.9) th/mm3 Eos # (Auto) 0.1 (0.0-0.4) th/mm3 Baso # (Auto) 0.0 (0.0-0.2) th/mm3 Comprehensive Metabolic Panel 09/30/18 10/01/18 Range/Units 05:30 04:00 Sodium 142 139 (136-145) meq/L Potassium 4.0 4.5 (3.5-5.1) meq/L Chloride 111 H 107 (98-107) meq/L Carbon Dioxide 20.8 L 22.0 (21.0-32.0) meq/L BUN 10 13 (7-18) mg/dL Creatinine 1.10 H 0.97 (0.50-1.00) mg/dL Calcium 8.1 L 7.6 L (8.5-10.1) mg/dL AST 816 H (15-37) U/L ALT 462 H (10-53) U/L Alkaline Phosphatase 68 (45-117) U/L Total Protein 5.6 L D (6.4-8.2) g/dL Albumin 2.6 L (3.4-5.0) g/dL Intake and Output 09/30/18 10/01/18 10/01/18 22:59 06:59 14:59 Intake Total 850 / 850 250 / 250 Output Total 640 / 640 717 / 717 Balance 210 / 210 -467 / -467 Intake: IV 150 / 150 250 / 250 Precedex Inj 200 MCG In NS Inj 50 / 50 48 ML @ 0.2 MCG/KG/HR 3.85 mls/ hr IV.CONT TITRATE PRN Rx#: [id number] Heparin/D5W 25,000 U/250 mL 25, 250 / 250 000 unit In 250 ml @ Per Protocol IV.CONT TITRATE PRN Rx #:[id number] Ancef 2 GM Premix Inj 2 gm In 100 / 100 50 ml @ 100 mls/hr IV.SIG Q8H ESTELLE Rx#:[id number] Oral 0 / 0 Other 700 / 700 Output: Urine 537 / 537 Urine Amount (Catheter) 365 / 365 Indwelling Temp Sensing 365 / 365 Catheter Gastric Drainage 175 / 175 Orogastric Tube 175 / 175 Chest Tube Drainage 100 / 100 180 / 180 Pleural/Mediastinal 100 / 100 upper abdomen 180 / 180 Other: Weight 80.5 kg - Imaging and Cardiology Imaging: Impressions Chest X-Ray 09/29/18 13:35 CONCLUSION: Moderate pulmonary edema. Chest X-Ray 09/30/18 05:00 CONCLUSION: Mild bibasilar atelectasis. Assessment and Plan - Assessment (1) Unstable angina Code(s): I20.0 - Unstable angina Status: Acute (2) CAD (coronary artery disease), [place] coronary artery Code(s): I25.10 - Atherosclerotic heart disease of [place] coronary artery without angina pectoris Status: Acute (3) Diabetes mellitus Code(s): E11.9 - Type 2 diabetes mellitus without complications Status: Acute (4) Acute ST elevation myocardial infarction (STEMI) Code(s): I21.3 - ST elevation (STEMI) myocardial infarction of unspecified site Status: Acute - Plan Cardiac status stable overnight. Recommend no changes in medical regimen. 1) CABG x4 2) Jacqui-procedure STEMI Found to have extensive thrombus in both [place] vessels as well as grafts RAMEY to LAD with competitive flow, most likely will occlude Thrombus in LAD aspirated, distal LAD unable to pass wire past the anastomosis site SVG to OM1/OM2 occluded with extensive thrombus MAXWELL x 2 to [place] OM1 MAXWELL to [place] LCx POBA of [place] OM2 RCA stents patent PDA occluded where it was previously jailed Unable to find SVG to PDA [place] to be small vessel supplying very little territory ASA/Plavix Possible change to Brilinta once stable 3) Intubated For CPAP trial again today. 4) Hypercoagulable state Risk of HIT low, but will send labs Appreciate Hematology consultation Most likely anticoagulation/antiplatelet combination on discharge 5) Bedside HAKAN done with Dr. Enriquez EF 45%, inferolateral wall akinetic No significant valvulopathies Bedside echo EF 40-45%
--- NOTE | 2018-10-01 09:56 | P.PNCC ---
Subjective Subjective Remarks/Hospital Course: This is a 58yF with history of CAD who underwent off-pump CABG x 4 (RAMEY-->LAD, SVG-->OM1, SVG-->OM2, SVG-->PDA). intra-operatively it was noted that she had significant ST elevations. immediately post-operatively, it was noted that she had tombstoning on her EKG. She was taken emergently to the [facility] by Dr. Melissa where she had completely occluded grafts. He stented OM1, LAD. balloon angiopasty to OM2. She arrives back to the CVICU where I met her. She has had 4L crystalloid resuscitation. chest tubes have about 100cc sanguinous output. Of note, she was on a tranexamic acid infusion during the CABG which was started by anesthesia. the patient is intubated and no additional information is available from the patient. ROS unobtainable. I discussed the case with Dr. Melissa and Dr. Campos at bedside: plan to initiate heparin infusion 4 hours post-arterial sheath pull. I also discussed re-evaluation of LV function. Dr. Melissa and I performed HAKAN at bedside which demonstrated lateral and inferolateral hypokinesis, EF 45%, mild TR. 09/30 Patient is awake and alert. On Neosyn 20 mics, Precedex 0.3 and Heparin drip. Afebrile. 10/01 Patient did not tolerate CPAP yesterday, awake and alert. Had T:102.7 yesterday. On Neosyn 20 mics, Precedex 0.2 and Heparin drip. Objective Vital Signs / I&O: Vital Signs 09/30/18 10:45 09/30/18 10:47 09/30/18 11:00 Temperature 99.5 F 99.5 F Pulse Rate 71 Respiratory Rate 19 17 Blood Pressure 104/76 Pulse Oximetry 97 98 09/30/18 14:22 09/30/18 15:00 09/30/18 15:28 Temperature 99.1 F Pulse Rate 75 72 Respiratory Rate 15 14 15 Blood Pressure 119/70 Pulse Oximetry 98 09/30/18 17:34 09/30/18 19:00 09/30/18 20:02 Temperature 102.7 F H Pulse Rate 79 80 Respiratory Rate 16 15 16 Blood Pressure 106/74 Pulse Oximetry 99 98 09/30/18 23:00 10/01/18 01:03 10/01/18 02:05 Temperature 98.2 F Pulse Rate 76 Respiratory Rate 14 15 14 Blood Pressure 97/63 L Pulse Oximetry 98 10/01/18 03:00 10/01/18 03:23 10/01/18 04:00 Temperature 100.3 F H Pulse Rate 77 69 Respiratory Rate 14 15 15 Blood Pressure 103/73 Pulse Oximetry 10/01/18 04:20 10/01/18 05:30 Temperature Pulse Rate Respiratory Rate 19 16 Blood Pressure Pulse Oximetry 97 Intake & Output 09/30/18 10/01/18 10/01/18 18:59 06:59 18:59 Intake Total 800 / 800 350 / 350 Output Total 640 / 640 717 / 717 Balance 160 / 160 -367 / -367 Weight 80.5 kg Intake: IV 100 / 100 350 / 350 Precedex Inj 200 MCG In NS Inj 50 / 50 50 / 50 48 ML @ 0.2 MCG/KG/HR 3.85 mls/ hr IV.CONT TITRATE PRN Rx#: [id number] Heparin/D5W 25,000 U/250 mL 25, 250 / 250 000 unit In 250 ml @ Per Protocol IV.CONT TITRATE PRN Rx #:[id number] Ancef 2 GM Premix Inj 2 gm In 50 / 50 50 / 50 50 ml @ 100 mls/hr IV.SIG Q8H GOLDY Rx#:[id number] Oral 0 / 0 Other 700 / 700 Output: Urine 537 / 537 Urine Amount (Catheter) 365 / 365 Indwelling Temp Sensing 365 / 365 Catheter Gastric Drainage 175 / 175 Orogastric Tube 175 / 175 Chest Tube Drainage 100 / 100 180 / 180 Pleural/Mediastinal 100 / 100 upper abdomen 180 / 180 Result Diagrams: 10/01/18 04:00 10/01/18 04:00 Other Results: Laboratory Results - last 12 hr 09/28/18 10/01/18 10/01/18 04:47 00:13 04:00 WBC 10.0 RBC 3.01 L Hgb 9.1 L Hct 25.9 L MCV 86.0 MCH 30.2 MCHC 35.1 RDW 15.1 Plt Count 165 MPV 9.0 Neut % (Auto) 60.4 Lymph % (Auto) 31.1 [place] % (Auto) 7.3 Eos % (Auto) 0.8 Baso % (Auto) 0.4 Neut # (Auto) 6.0 Lymph # (Auto) 3.1 [place] # (Auto) 0.7 Eos # (Auto) 0.1 Baso # (Auto) 0.0 WBC Differential . Differential Comment Auto diff final APTT Sodium Potassium Chloride Carbon Dioxide Anion Gap BUN Creatinine Estimated GFR POC Glucose 203 H Random Glucose Calcium Phosphorus Magnesium Total Bilirubin AST ALT Alkaline Phosphatase Total Protein Albumin MTS Gel Crossmatch See Detail 10/01/18 10/01/18 10/01/18 04:00 04:00 04:11 WBC RBC Hgb Hct MCV MCH MCHC RDW Plt Count MPV Neut % (Auto) Lymph % (Auto) [place] % (Auto) Eos % (Auto) Baso % (Auto) Neut # (Auto) Lymph # (Auto) [place] # (Auto) Eos # (Auto) Baso # (Auto) WBC Differential Differential Comment APTT 64.8 H Sodium 139 Potassium 4.5 Chloride 107 Carbon Dioxide 22.0 Anion Gap 10 BUN 13 Creatinine 0.97 Estimated GFR 72 L POC Glucose 193 H Random Glucose 205 H Calcium 7.6 L Phosphorus 3.3 Magnesium 1.8 Total Bilirubin 0.9 AST 816 H ALT 462 H Alkaline Phosphatase 68 Total Protein 5.6 L D Albumin 2.6 L MTS Gel Crossmatch 10/01/18 08:34 WBC RBC Hgb Hct MCV MCH MCHC RDW Plt Count MPV Neut % (Auto) Lymph % (Auto) [place] % (Auto) Eos % (Auto) Baso % (Auto) Neut # (Auto) Lymph # (Auto) [place] # (Auto) Eos # (Auto) Baso # (Auto) WBC Differential Differential Comment APTT Sodium Potassium Chloride Carbon Dioxide Anion Gap BUN Creatinine Estimated GFR POC Glucose 215 H Random Glucose Calcium Phosphorus Magnesium Total Bilirubin AST ALT Alkaline Phosphatase Total Protein Albumin MTS Gel Crossmatch Imaging: Lower Extremity Ultrasound 09/24/18 00:00 CONCLUSION: Nonvisualization of the greater saphenous vein and portions of the lower legs bilaterally. Venous Doppler Study 09/24/18 00:00 CONCLUSION: Negative study. No venous thrombosis of either lower extremity. Carotid Doppler Study 09/28/18 10:09 CONCLUSION: 1. Right Internal Carotid Artery: No significant stenosis or atherosclerotic plaque is visualized. 2. Left Internal Carotid Artery: No significant stenosis or atherosclerotic plaque is visualized. Chest X-Ray 09/30/18 05:00 CONCLUSION: Mild bibasilar atelectasis. Objective Remarks: GENERAL: Patient is 58 yo intubated. SKIN: Warm and dry. HEAD: Normocephalic. EYES: No scleral icterus. No injection or drainage. NECK: Supple, trachea midline. No JVD or lymphadenopathy. CARDIOVASCULAR: Regular rate and rhythm without murmurs, gallops, or rubs. RESPIRATORY: Breath sounds equal bilaterally. No accessory muscle use. GASTROINTESTINAL: Abdomen soft, non-tender, nondistended. MUSCULOSKELETAL: No cyanosis, or edema. Neuro: Awake and alert Assessment and Plan - Assessment and Plan Plan: Assessment: 58yF POD 0 s/p off-pump CABG x 4 (RAMEY-->LAD, SVG-->OM1, SVG-->OM2, SVG-->PDA), complicated by immediate graft thrombosis and perioperative STEMI. Neuro: - Wean off Precedex drip. - frequent neuro checks. Patient is awake and alert. - avoid long-acting sedatives Resp: - Continue with vent support keep sats >92% - Bronchodilators, ICU vent bundle - hob elevated -SBT as betsey. -CXR 09/30 Mild basilar atelectasis CV: s/p off-pump CABG x 4 (RAMEY-->LAD, SVG-->OM1, SVG-->OM2, SVG-->PDA) 09/29 Immediate post-op STEMI Post-op Graft thrombosis Wean off Neosyn keep MAP>65mmHg On Heparin drip Continue ASA, Lipitor, Plavix - HAKNA post-op: EF 45%, lateral and inferolateral hypokinesis, mild TR - chest tubes to suction- monitor CT drainage. Renal: - Monitor renal function, I/O's, electrolytes replacement per protocol. FEN/GI: - NPO - OG tube to LIWS -On Protonix 40mg IV daily -Monitor LFT's, check US liver Heme/ID: Hypercoagulable State Acute graft thrombosis -Monitor CBC, coags- on Heparin drip - f/u HIT, YARITZA ( doubt HIT) - Follow up on Hypercoag profile. Heme is following ID: -Monitor for signs of infections ( fever, WBC) check BC x 2sets today - perioperative abx per CTS -s/p cefazolin. Endo: Post-operative hyperglycemia - SSI with accuchecks Prophylaxis: - SCDs - heparin drip as above - ppi Lines: - 09/29 art line - 09/29 [place] Level 3
[2018-10-01 11:19] LABS: ABG Base Excess -4.6 mmol/L (-2-2); ABG PCO2 28 mmHg (38-42); ABG PO2 83 mmHG (61-120)
[2018-10-01] MEDS: Mupirocin 2% Nasal Oint Topical Syringe EACH NARE SCH (11:38)
--- NOTE | 2018-10-01 11:40 | US ---
EXAM DATE: 10/01/2018 11:37 AM EST AGE/SEX: 58 years / Female INDICATIONS: Elevated liver function test. CLINICAL DATA: This is the patient's initial encounter. Patient reports that signs and symptoms have been present for 1 day and indicates a pain score of 0/10. MEDICAL/SURGICAL HISTORY: . Chronic renal insufficiency, stage II. Coronary artery disease. D iabetes mellitus. MRSA. Myocardial infarction. . Cardiac catheterization. COMPARISON: No prior exams available for comparison. MEASUREMENTS: Liver:__ 16.4 cm. Common Bile Duct:__ 6mm. Right Kidney:__ 10.4 x 4.9 x 5.5 cm. FINDINGS: Liver: Increased echotexture without focal lesion or ductal dilation. Portal Vein: Hepatopedal flow seen in portal vein. Common Duct: No intraluminal mass or stone visualized. Gallbladder: There is gallbladder wall thickening and pericholecystic fluid/wall edema with thicknes s measuring up to 9 mm. There are no stones. Negative sonographic Chris's sign. Pancreas: The visualized portions are within normal limits Right Kidney: Normal echotexture and cortical thickness. No mass or hydronephrosis. Other: None. CONCLUSION: 1. Mild hepatomegaly and steatosis suspected. 2. Gallbladder wall thickening with pericholecystic fluid. In the appropriate clinical setting acalc ulous cholecystitis may have this appearance. Electronically signed by: Rolando Singer MD 10/01/2018 11:39 AM EST
[2018-10-01] MEDS: Ranolazine 500 MG 12HR ER Tablet PO SCH ×2 (11:56→20:43)
--- NOTE | 2018-10-01 11:57 | P.PNONC ---
Subjective Interval history: Febrile, T-max 102.7 F. Remains intubated, currently on CPAP. Not sedated, alert. Objective Vital Signs/Intake & Output: Vital Signs 09/30/18 14:22 09/30/18 15:00 09/30/18 15:28 Temperature 99.1 F Pulse Rate 75 72 Respiratory Rate 15 14 15 Blood Pressure 119/70 Pulse Oximetry 98 09/30/18 17:34 09/30/18 19:00 09/30/18 20:02 Temperature 102.7 F H Pulse Rate 79 80 Respiratory Rate 16 15 16 Blood Pressure 106/74 Pulse Oximetry 99 98 09/30/18 23:00 10/01/18 01:03 10/01/18 02:05 Temperature 98.2 F Pulse Rate 76 Respiratory Rate 14 15 14 Blood Pressure 97/63 L Pulse Oximetry 98 10/01/18 03:00 10/01/18 03:23 10/01/18 04:00 Temperature 100.3 F H Pulse Rate 77 69 Respiratory Rate 14 15 15 Blood Pressure 103/73 Pulse Oximetry 10/01/18 04:20 10/01/18 05:30 10/01/18 07:00 Temperature 100.9 F H Pulse Rate 82 Respiratory Rate 19 16 19 Blood Pressure 120/83 Pulse Oximetry 97 97 10/01/18 10:23 Temperature Pulse Rate 78 Respiratory Rate 28 H Blood Pressure Pulse Oximetry Intake & Output 09/30/18 10/01/18 10/01/18 18:59 06:59 18:59 Intake Total 800 / 800 350 / 350 Output Total 640 / 640 717 / 717 Balance 160 / 160 -367 / -367 Weight 80.5 kg Intake: IV 100 / 100 350 / 350 Precedex Inj 200 MCG In NS Inj 50 / 50 50 / 50 48 ML @ 0.2 MCG/KG/HR 3.85 mls/ hr IV.CONT TITRATE PRN Rx#: [id number] Heparin/D5W 25,000 U/250 mL 25, 250 / 250 000 unit In 250 ml @ Per Protocol IV.CONT TITRATE PRN Rx #:[id number] Ancef 2 GM Premix Inj 2 gm In 50 / 50 50 / 50 50 ml @ 100 mls/hr IV.SIG Q8H ESTELLE Rx#:[id number] Oral 0 / 0 Other 700 / 700 Output: Urine 537 / 537 Urine Amount (Catheter) 365 / 365 Indwelling Temp Sensing 365 / 365 Catheter Gastric Drainage 175 / 175 Orogastric Tube 175 / 175 Chest Tube Drainage 100 / 100 180 / 180 Pleural/Mediastinal 100 / 100 upper abdomen 180 / 180 Result Diagrams: 10/01/18 04:00 10/01/18 04:00 Laboratory Results: Laboratory Results - last 24 hr 09/28/18 09/30/18 09/30/18 04:47 12:13 14:37 WBC RBC Hgb Hct MCV MCH MCHC RDW Plt Count MPV Neut % (Auto) Lymph % (Auto) [place] % (Auto) Eos % (Auto) Baso % (Auto) Neut # (Auto) Lymph # (Auto) [place] # (Auto) Eos # (Auto) Baso # (Auto) WBC Differential Differential Comment APTT Puncture Site Patient Temperature O2 Saturation ABG pH ABG pCO2 ABG pO2 ABG HCO3 ABG O2 Content ABG Base Excess ABG Methemoglobin Hemoglobin Carboxyhemoglobin O2 Delivery Device Vent Setting Inspired O2 Critical Value Sodium Potassium Chloride Carbon Dioxide Anion Gap BUN Creatinine Estimated GFR POC Glucose 93 284 H Random Glucose Calcium Phosphorus Magnesium Total Bilirubin AST ALT Alkaline Phosphatase Total Protein Albumin MTS Gel Crossmatch See Detail 09/30/18 09/30/18 09/30/18 16:04 17:50 20:55 WBC RBC Hgb Hct MCV MCH MCHC RDW Plt Count MPV Neut % (Auto) Lymph % (Auto) [place] % (Auto) Eos % (Auto) Baso % (Auto) Neut # (Auto) Lymph # (Auto) [place] # (Auto) Eos # (Auto) Baso # (Auto) WBC Differential Differential Comment APTT 65.2 H Puncture Site Patient Temperature O2 Saturation ABG pH ABG pCO2 ABG pO2 ABG HCO3 ABG O2 Content ABG Base Excess ABG Methemoglobin Hemoglobin Carboxyhemoglobin O2 Delivery Device Vent Setting Inspired O2 Critical Value Sodium Potassium Chloride Carbon Dioxide Anion Gap BUN Creatinine Estimated GFR POC Glucose 155 H 196 H Random Glucose Calcium Phosphorus Magnesium Total Bilirubin AST ALT Alkaline Phosphatase Total Protein Albumin MTS Gel Crossmatch 09/30/18 10/01/18 10/01/18 21:30 00:13 04:00 WBC 10.0 RBC 3.01 L Hgb 9.1 L Hct 25.9 L MCV 86.0 MCH 30.2 MCHC 35.1 RDW 15.1 Plt Count 165 MPV 9.0 Neut % (Auto) 60.4 Lymph % (Auto) 31.1 [place] % (Auto) 7.3 Eos % (Auto) 0.8 Baso % (Auto) 0.4 Neut # (Auto) 6.0 Lymph # (Auto) 3.1 [place] # (Auto) 0.7 Eos # (Auto) 0.1 Baso # (Auto) 0.0 WBC Differential . Differential Comment Auto diff final APTT Puncture Site Patient Temperature O2 Saturation ABG pH ABG pCO2 ABG pO2 ABG HCO3 ABG O2 Content ABG Base Excess ABG Methemoglobin Hemoglobin Carboxyhemoglobin O2 Delivery Device Vent Setting Inspired O2 Critical Value Sodium Potassium Chloride Carbon Dioxide Anion Gap BUN Creatinine Estimated GFR POC Glucose 196 H 203 H Random Glucose Calcium Phosphorus Magnesium Total Bilirubin AST ALT Alkaline Phosphatase Total Protein Albumin MTS Gel Crossmatch 10/01/18 10/01/18 10/01/18 04:00 04:00 04:11 WBC RBC Hgb Hct MCV MCH MCHC RDW Plt Count MPV Neut % (Auto) Lymph % (Auto) [place] % (Auto) Eos % (Auto) Baso % (Auto) Neut # (Auto) Lymph # (Auto) [place] # (Auto) Eos # (Auto) Baso # (Auto) WBC Differential Differential Comment APTT 64.8 H Puncture Site Patient Temperature O2 Saturation ABG pH ABG pCO2 ABG pO2 ABG HCO3 ABG O2 Content ABG Base Excess ABG Methemoglobin Hemoglobin Carboxyhemoglobin O2 Delivery Device Vent Setting Inspired O2 Critical Value Sodium 139 Potassium 4.5 Chloride 107 Carbon Dioxide 22.0 Anion Gap 10 BUN 13 Creatinine 0.97 Estimated GFR 72 L POC Glucose 193 H Random Glucose 205 H Calcium 7.6 L Phosphorus 3.3 Magnesium 1.8 Total Bilirubin 0.9 AST 816 H ALT 462 H Alkaline Phosphatase 68 Total Protein 5.6 L D Albumin 2.6 L MTS Gel Crossmatch 10/01/18 10/01/18 08:34 11:10 WBC RBC Hgb Hct MCV MCH MCHC RDW Plt Count MPV Neut % (Auto) Lymph % (Auto) [place] % (Auto) Eos % (Auto) Baso % (Auto) Neut # (Auto) Lymph # (Auto) [place] # (Auto) Eos # (Auto) Baso # (Auto) WBC Differential Differential Comment APTT Puncture Site Art line Patient Temperature 98.6 O2 Saturation 94 ABG pH 7.44 H ABG pCO2 28 L ABG pO2 83 ABG HCO3 19 L ABG O2 Content 12.6 ABG Base Excess -4.6 L ABG Methemoglobin 1.5 Hemoglobin 9.5 L Carboxyhemoglobin 1.1 O2 Delivery Device Ventilator Vent Setting Cpap 10/+5peep Inspired O2 40 Critical Value No Sodium Potassium Chloride Carbon Dioxide Anion Gap BUN Creatinine Estimated GFR POC Glucose 215 H Random Glucose Calcium Phosphorus Magnesium Total Bilirubin AST ALT Alkaline Phosphatase Total Protein Albumin MTS Gel Crossmatch Medications: Active Medications Generic Name Dose Route Start Last Admin Trade Name Freq PRN Reason Stop Dose Admin Acetaminophen 650 mg 09/24/18 02:29 10/01/18 09:35 Tylenol PO 650 mg Q4H PRN Administration Temp > 100.4 Albuterol 1 ampul 09/29/18 16:00 10/01/18 10:23 Duoneb Neb (Estelle) NEB 1 ampul Q6HR NEB ESTELLE Administration Amiodarone HCl 200 mg 09/29/18 21:00 10/01/18 08:46 Cordarone PO 200 mg Q12HR ESTELLE Administration Aspirin 81 mg 09/30/18 09:00 10/01/18 08:46 Aspirin Chew PO 81 mg DAILY ESTELLE Administration Atorvastatin Calcium 20 mg 09/25/18 21:00 09/30/18 21:55 Lipitor PO 20 mg HS ESTELLE Administration Clopidogrel Bisulfate 75 mg 09/30/18 09:00 10/01/18 08:46 Plavix PO 75 mg DAILY ESTELLE Administration Fentanyl Citrate 25 mcg 09/29/18 13:35 10/01/18 07:39 Fentanyl Inj IV.PUSH 25 mcg Q1H PRN Administration BREAKTHROUGH PAIN Calcium Chloride 1 gm/ Sodium 110 mls @ 100 mls/hr 09/29/18 13:35 09/29/18 20 :10 Chloride IV.SIG Infused PRN PRN Infusion SEE LABEL COMMENTS Magnesium Sulfate 2 gm/ Sodium 100 mls @ 50 mls/hr 09/29/18 13:35 10/01/18 09 :06 Chloride IV.SIG 50 mls/hr PRN PRN Administration SEE LABEL COMMENTS Potassium Chloride 20 meq in 100 mls @ 50 mls/hr 09/29/18 13:35 09/30/18 09: 09 Kcl 20 Meq Premix Inj IV.SIG 50 mls/hr PRN PRN Administration SEE LABEL COMMENTS Potassium Chloride 20 meq in 100 mls @ 50 mls/hr 09/29/18 13:35 09/30/18 01: 35 Kcl 20 Meq Premix Inj IV.SIG Infused PRN PRN Infusion SEE LABEL COMMENTS Dexmedetomidine HCl 200 mcg/ 50 mls @ 3.85 mls/hr 09/29/18 21:00 09/30/18 21: 59 Sodium Chloride IV.CONT 0.4 mcg/kg/hr TITRATE PRN 7.7 mls/hr Per Protocol Titration Protocol 0.2 MCG/KG/HR Heparin Sodium/Dextrose 25,000 unit in 250 mls @ 0 mls/hr 09/30/18 00:44 09/08 02:46 Heparin/D5w 25,000 U/250 Ml IV.CONT 900 units/hr TITRATE PRN 9 mls/hr Per Protocol Administration Protocol Per Protocol Insulin Aspart 20 unit 09/25/18 15:21 09/30/18 21:32 Novolog Insulin Correctional Sugar Inj SQ Not Given TIDAC [facility] Protocol Insulin Aspart 0 unit 09/25/18 17:00 09/30/18 21:01 Novolog Insulin Correctional Sugar Inj SQ 5 unit 08,12,17,21,03 [facility] Administration Protocol Insulin Aspart 0 unit 09/30/18 12:00 10/01/18 08:48 Novolog Insulin Correctional Sugar Inj SQ 3 unit Q4HR ESTELLE Administration Protocol Isosorbide Mononitrate 30 mg 09/24/18 09:00 09/30/18 12:01 Imdur PO Not Given DAILY ESTELLE Pantoprazole Sodium 40 mg 09/30/18 11:00 10/01/18 08:46 Protonix Inj IV.PUSH 40 mg DAILY ESTELLE Administration Ranolazine 500 mg 09/24/18 09:00 09/30/18 21:55 Ranexa PO 500 mg Q12H ESTELLE Administration Senna/Docusate Sodium 1 tab 09/24/18 09:00 10/01/18 08:46 Jacqui-Colace PO 1 tab BID ESTELLE Administration Sertraline HCl 50 mg 09/24/18 09:00 10/01/18 08:46 Zoloft PO 50 mg DAILY ESTELLE Administration Sodium Chloride 2 ml 09/24/18 09:00 10/01/18 08:47 Ns Flush IV.FLUSH 2 ml BID ESTELLE Administration Temazepam 7.5 mg 09/24/18 21:00 09/30/18 22:21 Restoril PO Not Given HS [facility] Objective Remarks: GENERAL: Critically ill-appearing female patient in no acute distress. Alert, intubated. SKIN: Warm, diaphoretic. Surgical sponge/clear dressing sternum. HEAD: Normocephalic. EYES: No scleral icterus. No injection or drainage. NECK: Supple, trachea midline. Rt central line. CARDIOVASCULAR: Distant heart sounds. RESPIRATORY: Breath sounds distant. No accessory muscle use.+ Intubated, CPAP. Chest tubes. GASTROINTESTINAL: Abdomen large, soft, non-tender, nondistended. EXTREMITIES: No cyanosis, or edema. MUSCULOSKELETAL: Adequate muscle tone. NEUROLOGICAL: No obvious focal deficit. Awake, alert. Shakes head to questions and moves extremities. PSYCHIATRIC: Appropriate mood and affect. Assessment/Plan - Plan Ms. Lira is a critically ill 58-year-old female patient who underwent urgent off-pump coronary artery bypass grafting x4 on 09/29/2018. The patient suffered occlusions of the graft within hours of undergoing surgery and she underwent left heart catheterization which revealed significant thrombus formation within the saphenous venous graft to the first and second obtuse marginals, additional thrombus had developed along the left anterior descending artery. The arterial thrombosis within the graft occurred while the patient was on antiplatelet agents. Hematology was consulted to rule out prothrombotic condition. Recommendations: 1. 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 Prothrombotic workup is pending. 2. Critical care management per manufacturing area manager. 3. Fevers, T-max 102.7 F, blood cultures are pending, manufacturing area manager is following. - Attending Statement The exam, history, and the medical decision-making described in the above note were completed with the assistance of the mid-level provider. I reviewed and agree with the findings presented. I attest that I had a [id number] encounter with the patient on the same day, and personally performed and documented my assessment and findings in the medical record. Patient is extubated. Complaining of sore throat Patient had a fever 102 this morning Blood culture, urine culture been done Patient has thrombosis of the graft for CABG Prothrombotic workup is pending Continue heparin, Plavix and aspirin Discussed with patient's RN and patient
[2018-10-01] MEDS: Calcium Chloride Inj 1 GM in Sodium Chlor 0.9% Inj 100 ML IV.SIG PRN (14:21)
--- NOTE | 2018-10-01 16:40 | ECG ---
Date Performed: 10/01/2018 Time Performed: 14:30:42 PTAGE: 58 years EKG: Sinus rhythm Short [place] interval Left axis deviation Inferior infarct - age undetermined Possible lateral [place] Jaun lateral T wave changes are nonspecific Abnormal ECG No significant change from prior electrocardiogra m. PREVIOUS TRACING : 09/30/2018 10.49 DOCTOR: Jatin Santos Interpretating Date/Time 10/01/2018 16:39:56
[2018-10-01] MEDS ORDERED: Albumin Human 5% Inj 250 ML IV.SIG ONE (18:15)
[2018-10-01] MEDS: Phenylephrine Inj 40 MG in Sodium Chlor 0.9% Inj 496 ML IV.CONT PRN (19:00)
[2018-10-02] MEDS: Insulin NovoLOG Aspart Correctional Sugar Inj SQ SCH ×7 (00:16→21:29)
[2018-10-02] MEDS: fentaNYL Citrate Inj 100 MCG/2 ML Ampul IV.PUSH PRN ×2 (03:59→05:57)
[2018-10-02 06:10] LABS: Baso % (Auto) 0.3 % (0.0-2.0); Eos # (Auto) 0.1 th/mm3 (0.0-0.4); Eos % (Auto) 0.6 % (0.0-4.0); Hematocrit 23.9 % (35.0-46.0); Hemoglobin 8.2 gm/dL (11.6-15.3); Lymph # (Auto) 2.3 th/mm3 (1.0-4.8); Lymph % (Auto) 24.8 % (9.0-44.0); Mean Corpuscular HGB Conc 34.2 % (32.0-36.0); Mean Corpuscular Hemoglobin 29.9 pg (27.0-34.0); Mean Corpuscular Volume 87.4 fL (80.0-100.0); Mean Platelet Volume 8.9 fL (7.0-11.0); Mono # (Auto) 0.6 th/mm3 (0.0-0.9); Mono % (Auto) 5.9 % (0.0-8.0); Neut # (Auto) 6.4 th/mm3 (1.8-7.7); Neut % (Auto) 68.4 % (16.0-70.0); Platelet Count 119 th/mm3 (150-450); Red Blood Count 2.74 mil/mm3 (4.00-5.30); Red Cell Distribution Width 15.3 % (11.6-17.2); White Blood Count 9.4 th/mm3 (4.0-11.0)
[2018-10-02 06:33] LABS: Albumin 2.6 g/dL (3.4-5.0); Anion Gap 10 meq/L (5-15); Blood Urea Nitrogen 17 mg/dL (7-18); Calcium 7.9 mg/dL (8.5-10.1); Carbon Dioxide 19.4 meq/L (21.0-32.0); Chloride 110 meq/L (98-107); Glucose,Random 192 mg/dL (74-106); Magnesium 2.1 mg/dL (1.5-2.5); Potassium 4.5 meq/L (3.5-5.1); Sodium 139 meq/L (136-145)
[2018-10-02 06:35] LABS: Alanine Aminotransferase 760 U/L (10-53); Phosphorus 3.2 mg/dL (2.5-4.9)
[2018-10-02 06:41] LABS: Alkaline Phosphatase 82 U/L (45-117); Aspartate Aminotransferase 973 U/L (15-37); Total Protein 5.6 g/dL (6.4-8.2)
--- NOTE | 2018-10-02 08:03 | P.DIET ---
Nutritional Evaluation Type of nutrition evaluation: initial Screening comments: NPO ALERT Objective - Diagnosis Unstable Angina - Objective Diet Order: NPO Assessment Assessment: NPO x 3-Days. Please Consult RD if Needed.
--- NOTE | 2018-10-02 08:10 | P.PNCV ---
- Note Subjective/Hospital Course: sts data discussed with pt RISK SCORES About the STS Risk Calculator Procedure: CAB Only Risk of Mortality: 0.745% Morbidity or Mortality: 8.994% Long Length of Stay: 3.108% Short Length of Stay: 56.144% Permanent Stroke: 0.567% Prolonged Ventilation: 6.252% DSW Infection: 0.387% Renal Failure: 1.922% Reoperation: 3.349% 58-year-old female with a significant history of coronary artery disease the presented to the ED for evaluation of chest pain. Patient has had chest pain for about a week. Per patient is progressively getting worse. She denies any urinary or bowel movement issues. She states that the pain gets worse with stress and movement. She took 4 nitro with minimal improvement of the symptoms which was what prompted her evaluation. Patient was admitted recently in July for evaluation of similar. She had another heart cath that showed . Significant multivessel disease, although overall small vessels. She did not had stenting at that time and they thought that she could have increase of her medications and may be this will help with her symptoms but she continues to have symptoms. PMH: CAD/ OR/ Stents/ HTN, HLP, DM insulin dependent EF 58% 09/26 pt on heparin gtt, 3 mcq of NTG will resume imdur and dc NTG, pt pain free eval PRU in am for timing of surgery off Brilinta since Thursday 09/27 off NTG gtt / on imdur/ heparin gtt, painfree PRU>250 stable for surgery on 09/28 doing well, no chest pain during the night on heparin gtt stable for surgery in am 09/29 SURGICAL PROCEDURE 1. Urgent Off-pump Coronary Artery Bypass Grafting x 4 with Left Internal Mammary Artery (RAMEY) to Left Anterior Descending (LAD), reverse saphenous vein graft to obtuse Marginal1 and sequentially to the Obtuse Marginal 2 branches of the left Circumflex artery, reverse saphenous vein graft to the posterior Descending branch of the right Coronary artery 2. Left leg Endoscopic Vein [place] 3. Intraoperative Vein Mapping. 09/30 Clinically and hemodynamic is stable Events noted with hyper acute thrombosis of all the grafts. PCI to the circumflex distribution Greatly appreciate Dr. Melissa and Dr. Enriquez's assistance in her care Wean to extubate today Presently on aspirin Plavix and heparin drip. Will defer to Dr. Melissa regarding long-term antiplatelet therapy Greatly appreciate Dr. Curry's input regarding further workup of her thrombotic state 10/01 Doing well this morning Awake alert oriented and responds appropriately verbal commands Weaning ventilator with plans to extubate today Hemodynamically stable Maintain chest tubes to drainage for now 10/02 Remains weak Not taking deep breaths or coughing Needs PT OT and incentive spirometry Likely DC chest tubes in a.m. once she has gotten out of bed Objective: Vital Signs - 24 hr 10/01/18 10:23 10/01/18 11:00 10/01/18 11:09 Temperature 99.4 F 99.4 F Pulse Rate 78 74 Respiratory Rate 28 H 23 Blood Pressure 86/59 L Pulse Oximetry 96 10/01/18 11:55 10/01/18 12:05 10/01/18 14:08 Temperature Pulse Rate Respiratory Rate 23 Blood Pressure Pulse Oximetry 95 96 10/01/18 14:22 10/01/18 15:00 10/01/18 16:19 Temperature 98 F Pulse Rate 83 77 Respiratory Rate 16 14 18 Blood Pressure 111/75 Pulse Oximetry 97 10/01/18 18:50 10/01/18 19:00 10/01/18 19:40 Temperature 97.7 F Pulse Rate 74 74 76 Respiratory Rate 16 16 Blood Pressure 104/61 84/56 L Pulse Oximetry 95 98 10/01/18 22:24 10/01/18 23:00 10/01/18 23:36 Temperature 97.5 F L Pulse Rate 81 81 83 Respiratory Rate 16 16 Blood Pressure 95/65 L Pulse Oximetry 97 96 10/02/18 03:00 10/02/18 03:40 10/02/18 04:29 Temperature 99.3 F Pulse Rate 81 83 Respiratory Rate 16 16 Blood Pressure 92/63 L Pulse Oximetry 95 10/02/18 05:08 Temperature Pulse Rate 80 Respiratory Rate 18 Blood Pressure Pulse Oximetry Labs: Laboratory Results - last 12 hr 10/01/18 10/02/18 10/02/18 20:51 00:13 03:54 WBC RBC Hgb Hct MCV MCH MCHC RDW Plt Count MPV Neut % (Auto) Lymph % (Auto) [place] % (Auto) Eos % (Auto) Baso % (Auto) Neut # (Auto) Lymph # (Auto) [place] # (Auto) Eos # (Auto) Baso # (Auto) WBC Differential Differential Comment APTT Sodium Potassium Chloride Carbon Dioxide Anion Gap BUN Creatinine POC Glucose 208 H 175 H 201 H Random Glucose Calcium Phosphorus Magnesium Total Bilirubin AST ALT Alkaline Phosphatase Total Protein Albumin 10/02/18 10/02/18 10/02/18 05:25 05:25 05:25 WBC 9.4 RBC 2.74 L Hgb 8.2 L Hct 23.9 L MCV 87.4 MCH 29.9 MCHC 34.2 RDW 15.3 Plt Count 119 L MPV 8.9 Neut % (Auto) 68.4 Lymph % (Auto) 24.8 [place] % (Auto) 5.9 Eos % (Auto) 0.6 Baso % (Auto) 0.3 Neut # (Auto) 6.4 Lymph # (Auto) 2.3 [place] # (Auto) 0.6 Eos # (Auto) 0.1 Baso # (Auto) 0.0 WBC Differential . Differential Comment Auto diff final APTT 65.1 H Sodium 139 Potassium 4.5 Chloride 110 H Carbon Dioxide 19.4 L Anion Gap 10 BUN 17 Creatinine 0.94 POC Glucose Random Glucose 192 H Calcium 7.9 L Phosphorus 3.2 Magnesium 2.1 Total Bilirubin 0.9 AST 973 H ALT 760 H Alkaline Phosphatase 82 Total Protein 5.6 L Albumin 2.6 L 10/02/18 08:02 WBC RBC Hgb Hct MCV MCH MCHC RDW Plt Count MPV Neut % (Auto) Lymph % (Auto) [place] % (Auto) Eos % (Auto) Baso % (Auto) Neut # (Auto) Lymph # (Auto) [place] # (Auto) Eos # (Auto) Baso # (Auto) WBC Differential Differential Comment APTT Sodium Potassium Chloride Carbon Dioxide Anion Gap BUN Creatinine POC Glucose 204 H Random Glucose Calcium Phosphorus Magnesium Total Bilirubin AST ALT Alkaline Phosphatase Total Protein Albumin Result Diagrams: 10/02/18 05:25 10/02/18 05:25 - Plan (1) CAD (coronary artery disease), [place] coronary artery Plan: ASA, statin Heparin gtt long acting nitrates stable for surgery on (2) Diabetes mellitus Plan: diabetic diet insulin sliding scale HGB A1C 8.6 (3) Unstable angina Plan: pain free at this time (4) Renal insufficiency Plan: indices improving
[2018-10-02] MEDS ORDERED: Sod Phosphate/Sod Biphosphate (Adult) Enema 133 ML Bottle RECTAL PRN (08:26)
[2018-10-02] MEDS ORDERED: Dextrose 50% in Water 50 ML Vial IV.PUSH PRN (08:26)
[2018-10-02] MEDS ORDERED: Bisacodyl 10 MG Supp RECTAL PRN (08:26)
[2018-10-02] MEDS: Sertraline 50 MG Tablet PO SCH (08:28)
[2018-10-02] MEDS: Amiodarone 200 MG Tablet PO SCH ×2 (08:28→20:05)
[2018-10-02] MEDS: Pantoprazole Inj 40 MG Vial IV.PUSH SCH (08:28)
[2018-10-02] MEDS: Ranolazine 500 MG 12HR ER Tablet PO SCH ×2 (08:28→20:05)
[2018-10-02] MEDS: Senna/Docusate Sodium 8.6/50 MG Tablet PO SCH ×2 (08:28→20:05)
[2018-10-02] MEDS: Sodium Chloride 0.9% 2 ML Flush BID IV.FLUSH SCH ×2 (08:29→20:06)
[2018-10-02] MEDS: Multivitamin/Minerals Therapeutic Tablet PO SCH (09:27)
--- NOTE | 2018-10-02 09:39 | P.PNCC ---
Subjective Subjective Remarks/Hospital Course: This is a 58yF with history of CAD who underwent off-pump CABG x 4 (RAMEY-->LAD, SVG-->OM1, SVG-->OM2, SVG-->PDA). intra-operatively it was noted that she had significant ST elevations. immediately post-operatively, it was noted that she had tombstoning on her EKG. She was taken emergently to the chemistry laboratory technician by Dr. Melissa where she had completely occluded grafts. He stented OM1, LAD. balloon angiopasty to OM2. She arrives back to the CVICU where I met her. She has had 4L crystalloid resuscitation. chest tubes have about 100cc sanguinous output. Of note, she was on a tranexamic acid infusion during the CABG which was started by anesthesia. the patient is intubated and no additional information is available from the patient. ROS unobtainable. I discussed the case with Dr. Melissa and Dr. Campos at bedside: plan to initiate heparin infusion 4 hours post-arterial sheath pull. I also discussed re-evaluation of LV function. Dr. Melissa and I performed HAKAN at bedside which demonstrated lateral and inferolateral hypokinesis, EF 45%, mild TR. 09/30 Patient is awake and alert. On Neosyn 20 mics, Precedex 0.3 and Heparin drip. Afebrile. 10/01 Patient did not tolerate CPAP yesterday, awake and alert. Had T:102.7 yesterday. On Neosyn 20 mics, Precedex 0.2 and Heparin drip. Subjective 10/02: Afebrile. Extubated yesterday currently on 3 L nasal cannula. Remains on phenylephrine drip at 30 mcg/min. Heparin drip at 900 units an hour. Heme otology workup currently in process. Speech therapy to evaluate swelling. Out of bed to chair today. Objective Vital Signs / I&O: Vital Signs 10/01/18 10:23 10/01/18 11:00 10/01/18 11:09 Temperature 99.4 F 99.4 F Pulse Rate 78 74 Respiratory Rate 28 H 23 Blood Pressure 86/59 L Pulse Oximetry 96 10/01/18 11:55 10/01/18 12:05 10/01/18 14:08 Temperature Pulse Rate Respiratory Rate 23 Blood Pressure Pulse Oximetry 95 96 11/10/18 14:22 10/01/18 15:00 10/01/18 16:19 Temperature 98 F Pulse Rate 83 77 Respiratory Rate 16 14 18 Blood Pressure 111/75 Pulse Oximetry 97 10/01/18 18:50 10/01/18 19:00 10/01/18 19:40 Temperature 97.7 F Pulse Rate 74 74 76 Respiratory Rate 16 16 Blood Pressure 104/61 84/56 L Pulse Oximetry 95 98 10/01/18 22:24 10/01/18 23:00 10/01/18 23:36 Temperature 97.5 F L Pulse Rate 81 81 83 Respiratory Rate 16 16 Blood Pressure 95/65 L Pulse Oximetry 97 96 10/02/18 03:00 10/02/18 03:40 10/02/18 04:29 Temperature 99.3 F Pulse Rate 81 83 Respiratory Rate 16 16 Blood Pressure 92/63 L Pulse Oximetry 95 10/02/18 05:08 10/02/18 09:27 Temperature Pulse Rate 80 Respiratory Rate 18 Blood Pressure Pulse Oximetry 98 Intake & Output 10/01/18 10/02/18 10/02/18 18:59 06:59 18:59 Intake Total 1328 / 1328 1067 / 1067 Output Total 920 / 920 375 / 375 Balance 408 / 408 692 / 692 Weight 81.5 kg Intake: IV 1328 / 1328 827 / 827 Precedex Inj 200 MCG In NS Inj 30 / 30 48 ML @ 0.2 MCG/KG/HR 3.85 mls/ hr IV.CONT TITRATE PRN Rx#: [id number] Heparin/D5W 25,000 U/250 mL 25, 349 / 349 117 / 117 000 unit In 250 ml @ Per Protocol IV.CONT TITRATE PRN Rx #:[id number] Neosynephrine Inj 40 MG In NS 449 / 449 Inj 496 ML @ 40 MCG/MIN 30 mls/ hr IV.CONT TITRATE PRN Rx#: [id number] Ofirmev Inj 1,000 mg In 100 ml 100 / 100 @ 400 mls/hr IV.SIG Q6H PRN Rx# :[id number] Buminate 5% Inj 250 ML @ 250 250 / 250 mls/hr IV.SIG NOW ONE Rx#: [id number] Calcium Chloride Inj 1 GM In NS 110 / 110 Inj 100 ML @ 100 mls/hr IV.SIG PRN PRN Rx#:[id number] LR 1000 mL Inj 500 ML @ 9999 489 / 489 mls/hr IV.SIG .Q3M ONE Rx#: [id number] Magnesium Sulfate Inj 2 GM In 100 / 100 NS Inj 96 ML @ 50 mls/hr IV.SIG PRN PRN Rx#:[id number] KCl 20 mEq Premix Inj 20 meq In 0 / 0 100 ml @ 50 mls/hr IV.SIG PRN PRN Rx#:[id number] Ancef 2 GM Premix Inj 2 gm In 50 / 50 50 ml @ 100 mls/hr IV.SIG Q8H GOLDY Rx#:[id number] Oral 240 / 240 Output: Urine Amount (Catheter) 900 / 900 355 / 355 Indwelling Temp Sensing 900 / 900 355 / 355 Catheter Chest Tube Drainage 20 / 20 Pleural/Mediastinal 20 / 20 Other: Date of Last Bowel Movement 09/28/18 # Bowel Movements 0 Result Diagrams: 10/02/18 05:25 10/02/18 05:25 Imaging: Chest X-Ray 09/23/18 22:38 CONCLUSION: Negative examination. Lower Extremity Ultrasound 09/24/18 00:00 CONCLUSION: Nonvisualization of the greater saphenous vein and portions of the lower legs bilaterally. Venous Doppler Study 09/24/18 00:00 CONCLUSION: Negative study. No venous thrombosis of either lower extremity. Chest X-Ray 09/25/18 10:12 CONCLUSION: No evidence of acute cardiopulmonary process. Carotid Doppler Study 09/28/18 10:09 CONCLUSION: 1. Right Internal Carotid Artery: No significant stenosis or atherosclerotic plaque is visualized. 2. Left Internal Carotid Artery: No significant stenosis or atherosclerotic plaque is visualized. Chest X-Ray 09/29/18 13:35 CONCLUSION: Moderate pulmonary edema. Chest X-Ray 09/30/18 05:00 CONCLUSION: Mild bibasilar atelectasis. Liver Ultrasound 10/01/18 00:00 CONCLUSION: 1. Mild hepatomegaly and steatosis suspected. 2. Gallbladder wall thickening with pericholecystic fluid. In the appropriate clinical setting acalculous cholecystitis may have this appearance. Objective Remarks: GENERAL: Patient is 58 yo female currently on nasal cannula no acute distress SKIN: Warm and dry. HEAD: Normocephalic. EYES: No scleral icterus. No injection or drainage. NECK: Supple, trachea midline. No JVD or lymphadenopathy. CARDIOVASCULAR: Regular rate and rhythm. S1, S2 predose 4. Without murmurs, gallops, or rubs. RESPIRATORY: Breath sounds equal bilaterally. No accessory muscle use. Mediastinal chest tube with serosanguineous output. GASTROINTESTINAL: Abdomen soft, non-tender, nondistended. MUSCULOSKELETAL: No significant peripheral edema. JUANCHO hose in place. Neuro: Awake and alert cranial nerves II through XII grossly intact. Strength is equal symmetric. Normal sensation. Assessment and Plan - Assessment and Plan Plan: Assessment: 58yF POD 0 s/p off-pump CABG x 4 (RAMEY-->LAD, SVG-->OM1, SVG-->OM2, SVG-->PDA), complicated by immediate graft thrombosis and perioperative STEMI. Neuro: -PRN morphine sulfate/meperidine for pain management -Limit acetaminophen with elevated transaminases Resp: Acute respiratory insufficiency -Nasal cannula currently at 3 L keep sats >92% - Bronchodilators every 6 hours, incentive spirometry while awake - hob elevated -CXR 11/2 a.m. ordered CV: s/p off-pump CABG x 4 (RAMEY-->LAD, SVG-->OM1, SVG-->OM2, SVG-->PDA) 09/29 Immediate post-op STEMI Post-op Graft thrombosis Wean off phenylephrine drip currently at 30 mcg/min keep MAP>65mmHg On Heparin drip currently at 900 units per hour Continue ASA, atorvastatin and clopidogrel - HAKAN post-op: EF 45%, lateral and inferolateral hypokinesis, mild TR - chest tubes to suction- monitor CT drainage. Renal: - Monitor renal function, I/O's, electrolytes replacement per protocol. FEN/GI: Transaminitis -Advance diet as tolerated per speech therapy -On Protonix 40mg IV daily -Liver ultrasound revealed edematous gallbladder. No signs of obstructive process. We will check a nuclear medicine hepatobiliary scan. Low likelihood of a calculus cholecystitis. Minimal pain. Heme/ID: Hypercoagulable State Acute graft thrombosis Normocytic anemia Acute thrombocytopenia -Monitor CBC, coags- on Heparin drip - f/u HIT, YARITZA ( doubt HIT) - Follow up on Hypercoag profile. Heme is following ID: -Monitor for signs of infections ( fever, WBC) check BC x 2sets today - perioperative abx per CTS -s/p cefazolin. Endo: Post-operative hyperglycemia - SSI with accuchecks Prophylaxis: - SCDs - heparin drip as above - ppi Lines: - 09/29 left radial art line and right IJ cordis with dual-lumen catheter - 09/29 Barba Level 3 follow-up
[2018-10-02] MEDS ORDERED: Albumin Human 5% Inj 250 ML IV.SIG ONE (10:45)
--- NOTE | 2018-10-02 11:05 | P.PNCA ---
Subjective Interval history: Resting comfortably. No angina, dyspnea, dizziness, nausea, palpitations. Slept poorly. Medications and Allergies Active Medications: Active Medications Acetaminophen (Tylenol) 650 mg PO Q4H PRN PRN Reason: Temp > 100.4 Last Admin: 10/01/18 09:35 Dose: 650 mg Hydrocodone Bitart/Acetaminophen (Ellis 5/325) 1 tab PO Q3H PRN PRN Reason: PAIN SCALE 1 TO 5 Last Admin: 10/02/18 09:27 Dose: 1 tab Al Hydroxide/Mg Hydroxide (Milk Of Magnesia Liq) 30 ml PO Q12H PRN PRN Reason: Mild Constipation Al Hydroxide/Mg Hydroxide (Milk Of Magnesia Liq) 30 ml PO DAILY ON LICENSE OF [facility] Last Admin: 10/02/18 09:27 Dose: 30 ml Albuterol (Duoneb Neb (Prn)) 1 ampul NEB Q2HR NEB PRN PRN Reason: WHEEZING Albuterol (Duoneb Neb (Estelle)) 1 ampul NEB Q6HR WHILE AWAKE NEB ESTELLE Stop: 10/04/18 13:59 Amiodarone HCl (Cordarone) 200 mg PO Q12HR ON LICENSE OF [facility] Last Admin: 10/02/18 08:28 Dose: 200 mg Aspirin (Aspirin Chew) 81 mg PO DAILY ON LICENSE OF [facility] Last Admin: 10/02/18 08:28 Dose: 81 mg Atorvastatin Calcium (Lipitor) 20 mg PO HS ON LICENSE OF [facility] Last Admin: 10/01/18 20:43 Dose: 20 mg Bisacodyl (Dulcolax Supp) 10 mg RECTAL PRN PRN PRN Reason: SEE LABEL COMMENTS Calcium Chloride (Calcium Chloride Inj) 0.5 gm IV.PUSH UNSCH PRN PRN Reason: SEE LABEL COMMENTS Clopidogrel Bisulfate (Plavix) 75 mg PO DAILY ON LICENSE OF [facility] Last Admin: 10/02/18 08:28 Dose: 75 mg Dextrose (D50w Vial) 50 ml IV.PUSH UNSCH PRN PRN Reason: PER HYPOGLYCEMIA PROTOCOL Docusate Sodium (Colace) 100 mg PO BID ON LICENSE OF [facility] Epinephrine (Racepinephrine 2.25% Neb) 0.5 ml NEB UNSCH X1 PRN PRN Reason: STRIDOR Fentanyl Citrate (Fentanyl Inj) 25 mcg IV.PUSH Q1H PRN PRN Reason: BREAKTHROUGH PAIN Last Admin: 10/02/18 05:57 Dose: 25 mcg Glucagon (Glucagon Inj) 1 mg OTHER PRN PRN PRN Reason: For hypoglycemia Calcium Chloride 1 gm/ Sodium (Chloride) 110 mls @ 100 mls/hr IV.SIG PRN PRN PRN Reason: SEE LABEL COMMENTS Last Infusion: 10/01/18 16:00 Dose: Infused Clevidipine (Cleviprex Inj) 25 mg in 50 mls @ 2 mls/hr IV.CONT TITRATE PRN; Protocol PRN Reason: Per protocol Lactated Ringer's (Lr 1000 Ml Inj) 500 mls @ 500 mls/hr IV.SIG .Q1H PRN PRN Reason: SEE LABEL COMMENTS Magnesium Sulfate 2 gm/ Sodium (Chloride) 100 mls @ 50 mls/hr IV.SIG PRN PRN PRN Reason: SEE LABEL COMMENTS Last Infusion: 10/01/18 12:00 Dose: Infused Magnesium Sulfate 2 gm/ Sodium (Chloride) 100 mls @ 50 mls/hr IV.SIG PRN PRN PRN Reason: SEE LABEL COMMENTS Phenylephrine HCl 40 mg/ (Sodium Chloride) 500 mls @ 30 mls/hr IV.CONT TITRATE PRN; Protocol PRN Reason: See Protocol Last Titration: 10/02/18 06:49 Dose: 40 mcg/min, 30 mls/hr Potassium Chloride (Kcl 20 Meq Premix Inj) 20 meq in 100 mls @ 50 mls/hr IV.SIG PRN PRN PRN Reason: SEE LABEL COMMENTS Last Infusion: 10/01/18 16:31 Dose: Infused Potassium Chloride (Kcl 20 Meq Premix Inj) 20 meq in 100 mls @ 50 mls/hr IV.SIG PRN PRN PRN Reason: SEE LABEL COMMENTS Potassium Chloride (Kcl 20 Meq Premix Inj) 20 meq in 100 mls @ 50 mls/hr IV.SIG PRN PRN PRN Reason: SEE LABEL COMMENTS Last Infusion: 09/30/18 01:35 Dose: Infused Dexmedetomidine HCl 200 mcg/ (Sodium Chloride) 50 mls @ 3.85 mls/hr IV.CONT TITRATE PRN; Protocol PRN Reason: Per Protocol Last Titration: 10/01/18 16:31 Dose: Infused Heparin Sodium/Dextrose (Heparin/D5w 25,000 U/250 Ml) 25,000 unit in 250 mls @ 0 mls/hr IV.CONT TITRATE PRN; Protocol PRN Reason: Per Protocol Last Titration: 10/02/18 06:49 Dose: 9 units/hr, 0.09 mls/hr Lactated Ringer's (Lr 1000 Ml Inj) 500 mls @ 500 mls/hr IV.SIG ONCE ONE Stop: 10/02/18 11:44 Albumin Human (Buminate 5% Inj) 250 mls @ 250 mls/hr IV.SIG ONCE ONE Stop: 10/02/18 11:44 Insulin Aspart (Novolog Insulin Correctional Sugar Inj) 0 unit SQ 02,06,10,14, 18,22 ON LICENSE OF [facility]; Protocol Last Admin: 10/02/18 09:27 Dose: 14 unit Isosorbide Mononitrate (Imdur) 30 mg PO DAILY ON LICENSE OF [facility] Last Admin: 09/30/18 12:01 Dose: Not Given Lactulose (Lactulose Liq) 30 ml PO DAILY PRN PRN Reason: SEVERE CONSITIPATION Meperidine HCl (Demerol Inj) 12.5 mg IV.PUSH Q4H PRN PRN Reason: SHIVERING Morphine Sulfate (Morphine Inj) 2 mg IV.PUSH Q4H PRN PRN Reason: PAIN 6-10 Morphine Sulfate (Morphine Inj) 1 mg IV.PUSH Q10M PRN PRN Reason: PAIN SCALE 1 TO 5 Multivitamins/Minerals (Theragran-M) 1 tab PO DAILY ON LICENSE OF [facility] Last Admin: 10/02/18 09:27 Dose: 1 tab Mupirocin (Bactroban 2% Nasal Oint) 1 applicatio EACH NARE BID ON LICENSE OF [facility] Ondansetron HCl (Zofran Inj) 4 mg IV.PUSH Q6H PRN PRN Reason: NAUSEA OR VOMITING Pantoprazole Sodium (Protonix Inj) 40 mg IV.PUSH DAILY ON LICENSE OF [facility] Last Admin: 10/02/18 08:28 Dose: 40 mg Phenylephrine HCl (Neosynephrine Inj) 0.1 mg IV.PUSH UNSCH PRN PRN Reason: SEE LABEL COMMENTS Polyethylene Glycol (Miralax) 17 gm PO DAILY ON LICENSE OF [facility] Potassium Chloride (K-Dur) 20 meq PO UNSCH PRN PRN Reason: SEE LABEL COMMENTS Potassium Chloride (K-Dur) 40 meq PO UNSCH PRN PRN Reason: SEE LABEL COMMENTS Ranolazine (Ranexa) 500 mg PO Q12H ON LICENSE OF [facility] Last Admin: 10/02/18 08:28 Dose: 500 mg Senna/Docusate Sodium (Jacqui-Colace) 1 tab PO BID ON LICENSE OF [facility] Last Admin: 10/02/18 08:28 Dose: 1 tab Sennosides (Senokot) 17.2 mg PO Q12H PRN PRN Reason: Moderate Constipation Sennosides (Senokot) 8.6 mg PO [facility] Sertraline HCl (Zoloft) 50 mg PO DAILY ON LICENSE OF [facility] Last Admin: 10/02/18 08:28 Dose: 50 mg Sodium Bicarbonate (Sodium Bicarbonate 8.4% Inj) 50 meq IV.PUSH UNSCH PRN PRN Reason: SEE LABEL COMMENTS Sodium Bicarbonate (Sodium Bicarbonate 8.4% Inj) 100 meq IV.PUSH UNSCH PRN PRN Reason: SEE LABEL COMMENTS Sodium Biphosphate/Sodium Phosphate (Fleets Enema (Adult)) 118 ml RECTAL UNSCH PRN PRN Reason: SEE LABEL COMMENTS Sodium Chloride (Ns Flush) 2 ml IV.FLUSH BID ON LICENSE OF [facility] Last Admin: 10/02/18 08:29 Dose: 2 ml Sodium Chloride (Ns Flush) 2 ml IV.FLUSH PRN PRN PRN Reason: FLUSH AFTER USING IV ACCESS Temazepam (Restoril) 7.5 mg PO [facility] Last Admin: 10/01/18 21:16 Dose: Not Given Terbutaline Sulfate (Brethine Inj) 1 mg SQ UNSCH PRN PRN Reason: For Extravasation Allergies Allergy/AdvReac Type Severity Reaction Status Date / Time metoprolol Allergy Severe HALLUCINATI Verified 09/23/18 22:25 ONS famotidine Allergy Unknown RASH Verified 09/23/18 22:25 lisinopril Allergy Unknown Itching Verified 09/23/18 22:25 insulin detemir AdvReac Unknown Diarrhea Verified 09/23/18 22:25 Home Medications Medication Instructions Recorded Confirmed Type aspirin [Aspir-81] 81 mg PO DAILY 08/03/18 09/24/18 History atorvastatin 20 mg PO DAILY 08/03/18 09/24/18 History insulin glargine [Lantus U-100 25 unit SUB-Q DAILY 08/03/18 09/24/18 History Insulin] insulin lispro [Humalog U-100 45 unit SUB-Q DAILY 08/03/18 09/24/18 History Insulin] isosorbide mononitrate 30 mg PO QAM 08/03/18 09/24/18 History methocarbamol 500 mg PO QID 08/03/18 09/24/18 History nitroglycerin 0.3 mg SUBLINGUAL Q5-15M PRN 08/03/18 09/24/18 History sertraline 50 mg PO DAILY 08/03/18 09/24/18 History temazepam 7.5 mg PO HS 08/03/18 09/24/18 History ticagrelor [Brilinta] 90 mg PO BID 08/03/18 09/24/18 History Physical Exam Vital signs: Vital Signs 10/01/18 11:09 10/01/18 11:55 10/01/18 12:05 Temperature 99.4 F Pulse Rate Respiratory Rate 23 Blood Pressure Pulse Oximetry 95 10/01/18 14:08 10/01/18 14:22 10/01/18 15:00 Temperature 98 F Pulse Rate 83 Respiratory Rate 16 14 Blood Pressure 111/75 Pulse Oximetry 96 97 10/01/18 16:19 10/01/18 18:50 10/01/18 19:00 Temperature Pulse Rate 77 74 74 Respiratory Rate 18 16 Blood Pressure 104/61 Pulse Oximetry 95 10/01/18 19:40 10/01/18 22:24 10/01/18 23:00 Temperature 97.7 F Pulse Rate 76 81 81 Respiratory Rate 16 16 Blood Pressure 84/56 L Pulse Oximetry 98 97 10/01/18 23:36 10/02/18 03:00 10/02/18 03:40 Temperature 97.5 F L 99.3 F Pulse Rate 83 81 83 Respiratory Rate 16 16 Blood Pressure 95/65 L 92/63 L Pulse Oximetry 96 95 10/02/18 04:29 10/02/18 05:08 10/02/18 07:30 Temperature 97.8 F Pulse Rate 80 80 Respiratory Rate 16 18 16 Blood Pressure 96/66 L Pulse Oximetry 100 10/02/18 09:27 Temperature Pulse Rate Respiratory Rate Blood Pressure Pulse Oximetry 98 Intake & Output 10/01/18 10/02/18 10/02/18 18:59 06:59 18:59 Intake Total 1328 / 1328 1067 / 1067 Output Total 920 / 920 375 / 375 Balance 408 / 408 692 / 692 Weight 81.5 kg Intake: IV 1328 / 1328 827 / 827 Precedex Inj 200 MCG In NS Inj 48 ML @ 0.2 MCG/KG/HR 3.85 mls/ hr IV.CONT TITRATE PRN Rx#: [id number] Heparin/D5W 25,000 U/250 mL 25, 349 / 349 117 / 117 000 unit In 250 ml @ Per Protocol IV.CONT TITRATE PRN Rx #:[id number] Neosynephrine Inj 40 MG In NS 449 / 449 Inj 496 ML @ 40 MCG/MIN 30 mls/ hr IV.CONT TITRATE PRN Rx#: [id number] Ofirmev Inj 1,000 mg In 100 ml 100 / 100 @ 400 mls/hr IV.SIG Q6H PRN Rx# :[id number] Buminate 5% Inj 250 ML @ 250 250 / 250 mls/hr IV.SIG NOW ONE Rx#: [id number] Calcium Chloride Inj 1 GM In NS 110 / 110 Inj 100 ML @ 100 mls/hr IV.SIG PRN PRN Rx#:[id number] LR 1000 mL Inj 500 ML @ 9999 489 / 489 11 / 11 mls/hr IV.SIG .Q3M ONE Rx#: [id number] Magnesium Sulfate Inj 2 GM In 100 / 100 NS Inj 96 ML @ 50 mls/hr IV.SIG PRN PRN Rx#:[id number] KCl 20 mEq Premix Inj 20 meq In 0 / 0 100 ml @ 50 mls/hr IV.SIG PRN PRN Rx#:[id number] Ancef 2 GM Premix Inj 2 gm In 50 / 50 50 ml @ 100 mls/hr IV.SIG Q8H ESTELLE Rx#:[id number] Oral 240 / 240 Output: Urine Amount (Catheter) 900 / 900 355 / 355 Indwelling Temp Sensing 900 / 900 355 / 355 Catheter Chest Tube Drainage 20 / 20 20 / 20 Pleural/Mediastinal 20 / 20 20 / 20 Other: Date of Last Bowel Movement 09/28/18 # Bowel Movements 0 - Constitutional no acute distress - Routine Neck Exam Absent: JVD - Routine Respiratory Exam Comments: Lungs clear anteriorly. - Routine Abdominal Exam Present: soft, normoactive bowel sounds. Absent: tenderness, organomegaly - Routine Extremities Exam Absent: cyanosis, clubbing, edema - Urinary Catheter Management Indwelling Temp Sensing Catheter Cath placed during this visit: yes Reason for continuing: Hourly intake/output Insertion date: 09/29/18 Insertion time: 08:30 Results 10/02/18 05:25 10/02/18 05:25 Cardiac Enzymes 10/01/18 10/02/18 Range/Units 04:00 05:25 AST 816 H 973 H (15-37) U/L Coagulation 09/30/18 10/01/18 10/02/18 Range/Units 17:50 04:00 05:25 APTT 65.2 H 64.8 H 65.1 H (23.4-31.7) sec CBC 10/01/18 10/02/18 Range/Units 04:00 05:25 WBC 10.0 9.4 (4.0-11.0) th/mm3 RBC 3.01 L 2.74 L (4.00-5.30) mil/mm3 Hgb 9.1 L 8.2 L (11.6-15.3) gm/dL Hct 25.9 L 23.9 L (35.0-46.0) % Plt Count 165 119 L (150-450) th/mm3 Neut # (Auto) 6.0 6.4 (1.8-7.7) th/mm3 Lymph # (Auto) 3.1 2.3 (1.0-4.8) th/mm3 [place] # (Auto) 0.7 0.6 (0.0-0.9) th/mm3 Eos # (Auto) 0.1 0.1 (0.0-0.4) th/mm3 Baso # (Auto) 0.0 0.0 (0.0-0.2) th/mm3 Comprehensive Metabolic Panel 10/01/18 10/02/18 Range/Units 04:00 05:25 Sodium 139 139 (136-145) meq/L Potassium 4.5 4.5 (3.5-5.1) meq/L Chloride 107 110 H (98-107) meq/L Carbon Dioxide 22.0 19.4 L (21.0-32.0) meq/L BUN 13 17 (7-18) mg/dL Creatinine 0.97 0.94 (0.50-1.00) mg/dL Calcium 7.6 L 7.9 L (8.5-10.1) mg/dL AST 816 H 973 H (15-37) U/L ALT 462 H 760 H (10-53) U/L Alkaline Phosphatase 68 82 (45-117) U/L Total Protein 5.6 L D 5.6 L (6.4-8.2) g/dL Albumin 2.6 L 2.6 L (3.4-5.0) g/dL Intake and Output 10/01/18 10/02/18 10/02/18 22:59 06:59 14:59 Intake Total 1339 / 1339 806 / 806 Output Total 920 / 920 375 / 375 Balance 419 / 419 431 / 431 Intake: IV 1339 / 1339 566 / 566 Precedex Inj 200 MCG In NS Inj 30 / 30 48 ML @ 0.2 MCG/KG/HR 3.85 mls/ hr IV.CONT TITRATE PRN Rx#: [id number] Heparin/D5W 25,000 U/250 mL 25, 349 / 349 117 / 117 000 unit In 250 ml @ Per Protocol IV.CONT TITRATE PRN Rx #:[id number] Neosynephrine Inj 40 MG In NS 449 / 449 Inj 496 ML @ 40 MCG/MIN 30 mls/ hr IV.CONT TITRATE PRN Rx#: [id number] Ofirmev Inj 1,000 mg In 100 ml 100 / 100 @ 400 mls/hr IV.SIG Q6H PRN Rx# :[id number] Buminate 5% Inj 250 ML @ 250 250 / 250 mls/hr IV.SIG NOW ONE Rx#: [id number] Calcium Chloride Inj 1 GM In NS 110 / 110 Inj 100 ML @ 100 mls/hr IV.SIG PRN PRN Rx#:[id number] LR 1000 mL Inj 500 ML @ 9999 500 / 500 mls/hr IV.SIG .Q3M ONE Rx#: [id number] KCl 20 mEq Premix Inj 20 meq In 0 / 0 100 ml @ 50 mls/hr IV.SIG PRN PRN Rx#:[id number] Oral 240 / 240 Output: Urine Amount (Catheter) 900 / 900 355 / 355 Indwelling Temp Sensing 900 / 900 355 / 355 Catheter Chest Tube Drainage Pleural/Mediastinal Other: Date of Last Bowel Movement 09/28/18 # Bowel Movements 0 Weight 81.5 kg - Imaging and Cardiology Imaging: Impressions Liver Ultrasound 10/01/18 00:00 CONCLUSION: 1. Mild hepatomegaly and steatosis suspected. 2. Gallbladder wall thickening with pericholecystic fluid. In the appropriate clinical setting acalculous cholecystitis may have this appearance. Assessment and Plan - Assessment (1) Unstable angina Code(s): I20.0 - Unstable angina Status: Acute (2) CAD (coronary artery disease), [place] coronary artery Code(s): I25.10 - Atherosclerotic heart disease of [place] coronary artery without angina pectoris Status: Acute (3) Diabetes mellitus Code(s): E11.9 - Type 2 diabetes mellitus without complications Status: Acute (4) Acute ST elevation myocardial infarction (STEMI) Code(s): I21.3 - ST elevation (STEMI) myocardial infarction of unspecified site Status: Acute - Plan Clinically, hemodynamically stable. Recommend no changes in medical regimen. 1) CABG x4 2) Jacqui-procedure STEMI Found to have extensive thrombus in both [place] vessels as well as grafts RAMEY to LAD with competitive flow, most likely will occlude Thrombus in LAD aspirated, distal LAD unable to pass wire past the anastomosis site SVG to OM1/OM2 occluded with extensive thrombus MAXWELL x 2 to [place] OM1 MAXWELL to [place] LCx POBA of [place] OM2 RCA stents patent PDA occluded where it was previously jailed Unable to find SVG to PDA [place] to be small vessel supplying very little territory ASA/Plavix Possible change to Brilinta once stable 3) Intubated Doing well s/p extubation. 4) Hypercoagulable state Risk of HIT low, but will send labs Appreciate Hematology consultation Most likely anticoagulation/antiplatelet combination on discharge 5) Bedside HAKAN done with Dr. Enriquez EF 45%, inferolateral wall akinetic No significant valvulopathy. Bedside echo EF 40-45% Code Status: full code Discussed Condition With: patient
[2018-10-02] MEDS: Heparin Drip 25,000 UNIT/250 ML BAG IV.CONT PRN (11:12)
[2018-10-02 15:51] LABS: VBG Base Excess -3.7 mmol/L (-2-2); VBG Blood Gas Oxygen Content 3.8 Vol % (9.0-17.0); VBG PCO2 34 mmHG (44-48); VBG PH 7.39 (7.360-7.400); VBG PO2 24 mmHG (35-40)
[2018-10-02] MEDS ORDERED: Albumin Human 25% Inj 100 ML IV.SIG ONE (16:00)
[2018-10-02 16:53] LABS: Calcium 7.7 mg/dL (8.5-10.1); Potassium 4.3 meq/L (3.5-5.1)
--- NOTE | 2018-10-02 17:05 | US ---
EXAM DATE: 10/02/2018 5:02 PM EST AGE/SEX: 58 years / Female INDICATIONS: Abnormal labs. CLINICAL DATA: This is the patient's initial encounter. Patient reports that signs and symptoms have been present for 1 day and indicates a pain score of 0/10. MEDICAL/SURGICAL HISTORY: Diabetes. MRSA. [place]. CAD. Chronic renal insufficiency. CABG. COMPARISON: [facility] – [place] ABDOMEN LIVER, 10/01/2018. . MEASUREMENTS: Right Kidney:__9.5 x 4.3 x 4.6 cm Left Kidney:__10.4 x 5.1 x 5.9 cm FINDINGS: Right Kidney: Increased echotexture. No mass or hydronephrosis. Left Kidney: Increased echotexture. No mass or hydronephrosis. Bladder: Barba catheter is present. Bladder decompressed. CONCLUSION: 1. Increased echogenicity of the kidneys characteristic of medical renal disease. No hydronephrosis. No perinephric fluid. Barba catheter in bladder, decompressed. Electronically signed by: Marcel Eric MD 10/02/2018 5:04 PM EST
[2018-10-02] MEDS: Phenylephrine Inj 40 MG in Sodium Chlor 0.9% Inj 496 ML IV.CONT PRN (17:06)
[2018-10-02 18:31] LABS: Creatinine,Urine Random 301 mg/dL (27-300)
[2018-10-02] MEDS: Mupirocin 2% Nasal Oint Topical Syringe EACH NARE SCH (20:05)
[2018-10-02] MEDS: Docusate Sodium 100 MG Capsule PO SCH (20:05)
[2018-10-02 22:24] LABS: Baso % (Auto) 0.4 % (0.0-2.0); Eos # (Auto) 0.1 th/mm3 (0.0-0.4); Eos % (Auto) 0.9 % (0.0-4.0); Hematocrit 21.1 % (35.0-46.0); Hemoglobin 7.4 gm/dL (11.6-15.3); Mean Corpuscular HGB Conc 35.2 % (32.0-36.0); Mean Corpuscular Hemoglobin 30.1 pg (27.0-34.0); Mean Corpuscular Volume 85.6 fL (80.0-100.0); Mean Platelet Volume 8.9 fL (7.0-11.0); Mono # (Auto) 0.5 th/mm3 (0.0-0.9); Mono % (Auto) 6.1 % (0.0-8.0); Neut # (Auto) 5.2 th/mm3 (1.8-7.7); Neut % (Auto) 66.6 % (16.0-70.0); Platelet Count 85 th/mm3 (150-450); Red Blood Count 2.46 mil/mm3 (4.00-5.30); Red Cell Distribution Width 14.8 % (11.6-17.2); White Blood Count 7.8 th/mm3 (4.0-11.0)
[2018-10-02 23:03] LABS: Platelet Morphology Normal (Normal)
[2018-10-03 03:51] LABS: Homocysteine (Cardiovascular) 7.1 umol/L (<10.4)
[2018-10-03] MEDS: Insulin NovoLOG Aspart Correctional Sugar Inj SQ SCH ×6 (05:28→21:16)
[2018-10-03 05:29] LABS: Hematocrit 28.7 % (35.0-46.0); Mean Corpuscular HGB Conc 34.9 % (32.0-36.0); Mean Corpuscular Volume 85.9 fL (80.0-100.0); Mean Platelet Volume 8.7 fL (7.0-11.0); Platelet Count 75 th/mm3 (150-450); Red Blood Count 3.34 mil/mm3 (4.00-5.30); White Blood Count 7.5 th/mm3 (4.0-11.0)
--- NOTE | 2018-10-03 05:49 | XR ---
EXAM DATE: 10/03/2018 5:25 AM EST AGE/SEX: 58 years / Female INDICATIONS: Shortness of breath, possible pulmonary disease. CLINICAL DATA: This is the patient's subsequent encounter. Patient reports that signs and symptoms h ave been present for 1 week and indicates a pain score of 4/10. MEDICAL/SURGICAL HISTORY: Diabetes. Renal insufficiency. Myocardial infarction. MRSA. CABG. COMPARISON: [facility] [place], CHEST 1V SINGLE AP, 09/30/2018. . FINDINGS: Single AP view of the chest. Median sternotomy wires. Right IJ central venous catheter, left-sided ch est tube, and mediastinal drain remain in place. Endotracheal tube and nasogastric tube no longer see n. Cardiac silhouette remains enlarged. Patchy left lung base opacity and mild hazy opacity bilateral ly. No evidence of pneumothorax. CONCLUSION: 1. Endotracheal tube and nasogastric tube no longer seen. 2. Patchy left lung base atelectasis versus consolidation and mild diffuse hazy bilateral lung opaci ty. Electronically signed by: Marcell Fong MD 10/03/2018 5:48 AM EST
[2018-10-03 06:00] LABS: Albumin 3.1 g/dL (3.4-5.0); Anion Gap 12 meq/L (5-15); Blood Urea Nitrogen 29 mg/dL (7-18); Calcium 7.6 mg/dL (8.5-10.1); Carbon Dioxide 17.9 meq/L (21.0-32.0); Chloride 109 meq/L (98-107); Glucose,Random 114 mg/dL (74-106); Magnesium 2.5 mg/dL (1.5-2.5); Potassium 4.1 meq/L (3.5-5.1); Sodium 139 meq/L (136-145)
[2018-10-03 06:01] LABS: Phosphorus 3.7 mg/dL (2.5-4.9)
[2018-10-03 06:08] LABS: Alanine Aminotransferase 1006 U/L (10-53); Alkaline Phosphatase 101 U/L (45-117); Aspartate Aminotransferase 1157 U/L (15-37); Total Protein 6.1 g/dL (6.4-8.2)
--- NOTE | 2018-10-03 07:14 | P.PNCC ---
Subjective Subjective Remarks/Hospital Course: This is a 58yF with history of CAD who underwent off-pump CABG x 4 (RAMEY-->LAD, SVG-->OM1, SVG-->OM2, SVG-->PDA). intra-operatively it was noted that she had significant ST elevations. immediately post-operatively, it was noted that she had tombstoning on her EKG. She was taken emergently to the cath lab manager by Dr. Melissa where she had completely occluded grafts. He stented OM1, LAD. balloon angiopasty to OM2. She arrives back to the CVICU where I met her. She has had 4L crystalloid resuscitation. chest tubes have about 100cc sanguinous output. Of note, she was on a tranexamic acid infusion during the CABG which was started by anesthesia. the patient is intubated and no additional information is available from the patient. ROS unobtainable. I discussed the case with Dr. Melissa and Dr. Campos at bedside: plan to initiate heparin infusion 4 hours post-arterial sheath pull. I also discussed re-evaluation of LV function. Dr. Melissa and I performed HAKAN at bedside which demonstrated lateral and inferolateral hypokinesis, EF 45%, mild TR. 09/30 Patient is awake and alert. On Neosyn 20 mics, Precedex 0.3 and Heparin drip. Afebrile. 10/01 Patient did not tolerate CPAP yesterday, awake and alert. Had T:102.7 yesterday. On Neosyn 20 mics, Precedex 0.2 and Heparin drip. Subjective 10/02: Afebrile. Extubated yesterday currently on 3 L nasal cannula. Remains on phenylephrine drip at 30 mcg/min. Heparin drip at 900 units an hour. Heme otology workup currently in process. Speech therapy to evaluate swelling. Out of bed to chair today. 10/03: Overnight received 2 units of PRBC for hemoglobin of 7.4. Became hypoxemic posttransfusion, and had to be placed on partial nonrebreather. Currently remains on partial nonrebreather, chest x-ray shows worsening pulmonary vascular congestion/pulmonary edema. Also it was noted that liver enzymes AST 1157, ALT 1006. Liver ultrasound suggestive of a calculus cholecystitis. I have discontinued Tylenol products, held amiodarone and atorvastatin, requested GI consult. Patient may need cholecystostomy tube placement Objective Vital Signs / I&O: Vital Signs 10/02/18 07:30 10/02/18 09:27 10/02/18 11:00 Temperature 97.8 F 97.8 F Pulse Rate 80 73 Respiratory Rate 16 16 Blood Pressure 96/66 L 83/62 L Pulse Oximetry 100 98 92 L 10/02/18 14:56 10/02/18 15:00 10/02/18 15:15 Temperature 97.5 F L Pulse Rate 73 76 Respiratory Rate 20 16 Blood Pressure 86/60 L Pulse Oximetry 96 96 10/02/18 15:41 10/02/18 19:00 10/02/18 20:00 Temperature 98.7 F Pulse Rate 76 76 78 Respiratory Rate 14 Blood Pressure 85/64 L Pulse Oximetry 94 L 10/02/18 21:08 10/02/18 22:07 10/02/18 23:00 Temperature 97.9 F Pulse Rate 79 76 Respiratory Rate 24 14 14 Blood Pressure 89/62 L Pulse Oximetry 94 L 94 L 10/03/18 00:46 10/03/18 01:01 10/03/18 01:03 Temperature 98.3 F 98.4 F 98.3 F Pulse Rate 78 75 75 Respiratory Rate 16 16 16 Blood Pressure 79/57 L 91/60 L 82/64 L Pulse Oximetry 95 95 96 10/03/18 03:08 10/03/18 03:13 10/03/18 03:15 Temperature 98.3 F 98.3 F Pulse Rate 74 74 Respiratory Rate 16 16 Blood Pressure 95/68 L 95/68 L Pulse Oximetry 94 L 94 L 10/03/18 03:19 10/03/18 04:00 10/03/18 04:03 Temperature 97.7 F Pulse Rate 74 73 Respiratory Rate 16 16 Blood Pressure 104/72 Pulse Oximetry 94 L 10/03/18 04:53 10/03/18 05:00 Temperature 98.6 F Pulse Rate Respiratory Rate Blood Pressure Pulse Oximetry 98 Intake & Output 10/02/18 10/03/18 10/03/18 18:59 06:59 18:59 Intake Total 2322 / 2322 1570 / 1570 Output Total 195 / 195 245 / 245 Balance 2127 / 2127 1325 / 1325 Weight 84 kg Intake: IV 1656 / 1656 Heparin/D5W 25,000 U/250 mL 25, 232 / 232 000 unit In 250 ml @ Per Protocol IV.CONT TITRATE PRN Rx #:[id number] Neosynephrine Inj 40 MG In NS 74 / 74 Inj 496 ML @ 40 MCG/MIN 30 mls/ hr IV.CONT TITRATE PRN Rx#: [id number] Flexbumin 25% Inj 100 ML @ 60 100 / 100 mls/hr IV.SIG ONCE ONE Rx#: [id number] Buminate 5% Inj 250 ML @ 250 250 / 250 mls/hr IV.SIG ONCE ONE Rx#: [id number] LR 1000 mL Inj 500 ML @ 500 mls 1000 / 1000 /hr IV.SIG ONCE ONE Rx#: [id number] Oral 480 / 480 420 / 420 Other 186 / 186 350 / 350 Rbc As-3 Leukoreduced Unit 100 / 100 [id number] Rbc As-3 Leukoreduced Unit 250 / 250 [id number] Intake (Blood Product) Amt 800 / 800 Rbc As-3 Leukoreduced Unit 400 / 400 [id number] Rbc As-3 Leukoreduced Unit 400 / 400 [id number] Output: Urine Amount (Catheter) 185 / 185 235 / 235 Indwelling Temp Sensing 185 / 185 235 / 235 Catheter Chest Tube Drainage Pleural/Mediastinal Other: Other Intake Source Saline Solution Rbc As-3 Leukoreduced Unit Saline Solution [id number] Rbc As-3 Leukoreduced Unit Saline Solution [id number] Result Diagrams: 10/03/18 05:13 10/03/18 05:13 Objective Remarks: GENERAL: Patient is 58 yo female currently on partial nonrebreather, for hypoxia SKIN: Warm and dry. HEAD: Normocephalic. EYES: No scleral icterus. No injection or drainage. NECK: Supple, trachea midline. No JVD or lymphadenopathy. CARDIOVASCULAR: Regular rate and rhythm. S1, S2 normal. Without murmurs, gallops, or rubs. RESPIRATORY: Breath sounds equal bilaterally, initially at the bases with few crackles. Using accessory muscle use. Mediastinal chest tube with serosanguineous output. GASTROINTESTINAL: Abdomen soft, non-tender, nondistended. MUSCULOSKELETAL: No significant peripheral edema. JUANCHO hose in place. Neuro: Awake and alert cranial nerve intact. Strength is equal symmetric. Normal sensation. Assessment and Plan - Assessment and Plan Plan: Assessment: 58yF POD 0 s/p off-pump CABG x 4 (RAMEY-->LAD, SVG-->OM1, SVG-->OM2, SVG-->PDA), complicated by immediate graft thrombosis and perioperative STEMI. Now with pulmonary edema post transfusion Neuro: -PRN morphine sulfate/meperidine for pain management -Discontinue acetaminophen with elevated transaminases Resp: Acute hypoxemic respiratory failure Pulmonary edema - Currently on partial nonrebreather to keep oxygen saturation above 90%. - Bronchodilators every 6 hours, incentive spirometry while awake. EzPAP - hob elevated. BiPAP if needed - CXR 11/ a.m. shows pulmonary edema CV: s/p off-pump CABG x 4 (RAMEY-->LAD, SVG-->OM1, SVG-->OM2, SVG-->PDA) 09/29 Immediate post-op STEMI Post-op Graft thrombosis Pulmonary edema with hypoxia Developed fluid overload/pulmonary edema posttransfusion IV Lasix 40 mg stat with potassium replacement Currently off phenylephrine d On Heparin drip currently at 900 units per hour Continue ASA, and clopidogrel Hold atorvastatin and amiodarone due to very elevated liver enzymes. Start low-dose beta-blockers if blood pressure remains stable HAKAN post-op: EF 45%, lateral and inferolateral hypokinesis, mild TR chest tubes to suction- monitor CT drainage. Check limited 2D echo today Renal: - Monitor renal function, I/O's, electrolytes replacement per protocol. Lasix as above FEN/GI: Transaminitis Probable acalculous cholecystitis -GI consulted, may need cholecystostomy tube -Discontinue Tylenol, holding atorvastatin and amiodarone -Advance diet as tolerated per speech therapy -On Protonix 40mg IV daily -Liver ultrasound revealed edematous gallbladder. No signs of obstructive process. Need HIDA when more stable Heme/ID: Hypercoagulable State Acute graft thrombosis Normocytic anemia Acute thrombocytopenia -Monitor CBC, coags- on Heparin drip - f/u HIT, YARITZA ( doubt HIT) - Follow up on Hypercoag profile. Heme is following ID: -Monitor for signs of infections ( fever, WBC) BC x 2 f/u negative today - perioperative abx per CTS -s/p cefazolin. Endo: Post-operative hyperglycemia - SSI with accuchecks Prophylaxis: - SCDs - heparin drip as above - ppi Lines: - 09/29 left radial art line and right IJ cordis with dual-lumen catheter - 09/29 [place] CCT 35 MIN
[2018-10-03] MEDS ORDERED: Midazolam 50 MG/50 ML Inj 50 MG/50 ML BAG IV.CONT PRN (07:32)
[2018-10-03] MEDS: Pantoprazole Inj 40 MG Vial IV.PUSH SCH (08:18)
[2018-10-03] MEDS: Polyethylene Glycol 3350 17 GM Packet PO SCH (08:18)
[2018-10-03] MEDS: Sodium Chloride 0.9% 2 ML Flush BID IV.FLUSH SCH ×2 (08:18→21:10)
[2018-10-03] MEDS: Senna/Docusate Sodium 8.6/50 MG Tablet PO SCH ×2 (08:19→21:12)
[2018-10-03] MEDS: Multivitamin/Minerals Therapeutic Tablet PO SCH (08:20)
[2018-10-03] MEDS: Docusate Sodium 100 MG Capsule PO SCH ×2 (08:20→21:11)
[2018-10-03] MEDS: Sertraline 50 MG Tablet PO SCH (08:20)
[2018-10-03] MEDS: Mupirocin 2% Nasal Oint Topical Syringe EACH NARE SCH ×2 (08:20→21:10)
[2018-10-03] MEDS: Ranolazine 500 MG 12HR ER Tablet PO SCH ×2 (08:20→21:10)
[2018-10-03 09:02] LABS: ABG PCO2 29 mmHg (38-42); ABG PO2 78 mmHG (61-120)
--- NOTE | 2018-10-03 11:56 | P.PNCV ---
- Note Subjective/Hospital Course: sts data discussed with pt RISK SCORES About the STS Risk Calculator Procedure: CAB Only Risk of Mortality: 0.745% Morbidity or Mortality: 8.994% Long Length of Stay: 3.108% Short Length of Stay: 56.144% Permanent Stroke: 0.567% Prolonged Ventilation: 6.252% DSW Infection: 0.387% Renal Failure: 1.922% Reoperation: 3.349% 58-year-old female with a significant history of coronary artery disease the presented to the ED for evaluation of chest pain. Patient has had chest pain for about a week. Per patient is progressively getting worse. She denies any urinary or bowel movement issues. She states that the pain gets worse with stress and movement. She took 4 nitro with minimal improvement of the symptoms which was what prompted her evaluation. Patient was admitted recently in July for evaluation of similar. She had another heart cath that showed . Significant multivessel disease, although overall small vessels. She did not had stenting at that time and they thought that she could have increase of her medications and may be this will help with her symptoms but she continues to have symptoms. PMH: CAD/ [place]/ Stents/ HTN, HLP, DM insulin dependent EF 58% 09/26 pt on heparin gtt, 3 mcq of NTG will resume imdur and dc NTG, pt pain free eval PRU in am for timing of surgery off Brilinta since Thursday 09/27 off NTG gtt / on imdur/ heparin gtt, painfree PRU>250 stable for surgery on 09/28 doing well, no chest pain during the night on heparin gtt stable for surgery in am 09/29 SURGICAL PROCEDURE 1. Urgent Off-pump Coronary Artery Bypass Grafting x 4 with Left Internal Mammary Artery (RAMEY) to Left Anterior Descending (LAD), reverse saphenous vein graft to obtuse Marginal1 and sequentially to the Obtuse Marginal 2 branches of the left Circumflex artery, reverse saphenous vein graft to the posterior Descending branch of the right Coronary artery 2. Left leg Endoscopic Vein [place] 3. Intraoperative Vein Mapping. 09/30 Clinically and hemodynamic is stable Events noted with hyper acute thrombosis of all the grafts. PCI to the circumflex distribution Greatly appreciate Dr. Melissa and Dr. Enriquez's assistance in her care Wean to extubate today Presently on aspirin Plavix and heparin drip. Will defer to Dr. Melissa regarding long-term antiplatelet therapy Greatly appreciate Dr. Curry's input regarding further workup of her thrombotic state 10/01 Doing well this morning Awake alert oriented and responds appropriately verbal commands Weaning ventilator with plans to extubate today Hemodynamically stable Maintain chest tubes to drainage for now 10/02 Remains weak Not taking deep breaths or coughing Needs PT OT and incentive spirometry Likely DC chest tubes in a.m. once she has gotten out of bed 10/03 minimal drainage in chest tube will dc today / heparin off to remove chest tubes, then resume weak, sleepy , will dc narcotics for now elevated LFT tylenol , amiodarone and statin held ammonia level 53 yesterday on partial NRB, needs aggressive pulm toileting OOB with assistance/ PT Objective: Vital Signs - 24 hr 10/02/18 14:56 10/02/18 15:00 10/02/18 15:15 Temperature 97.5 F L Pulse Rate 73 76 Respiratory Rate 20 16 Blood Pressure 86/60 L Pulse Oximetry 96 96 10/02/18 15:41 10/02/18 19:00 10/02/18 20:00 Temperature 98.7 F Pulse Rate 76 76 78 Respiratory Rate 14 Blood Pressure 85/64 L Pulse Oximetry 94 L 10/02/18 21:08 10/02/18 22:07 10/02/18 23:00 Temperature 97.9 F Pulse Rate 79 76 Respiratory Rate 24 14 14 Blood Pressure 89/62 L Pulse Oximetry 94 L 94 L 10/03/18 00:46 10/03/18 01:01 10/03/18 01:03 Temperature 98.3 F 98.4 F 98.3 F Pulse Rate 78 75 75 Respiratory Rate 16 16 16 Blood Pressure 79/57 L 91/60 L 82/64 L Pulse Oximetry 95 95 96 10/03/18 03:08 10/03/18 03:13 10/03/18 03:15 Temperature 98.3 F 98.3 F Pulse Rate 74 74 Respiratory Rate 16 16 Blood Pressure 95/68 L 95/68 L Pulse Oximetry 94 L 94 L 10/03/18 03:19 10/03/18 04:00 10/03/18 04:03 Temperature 97.7 F Pulse Rate 74 73 Respiratory Rate 16 16 Blood Pressure 104/72 Pulse Oximetry 94 L 10/03/18 04:53 10/03/18 05:00 10/03/18 07:00 Temperature 98.6 F 98.1 F Pulse Rate 80 Respiratory Rate 14 Blood Pressure 91/60 L Pulse Oximetry 98 91 L 10/03/18 07:48 10/03/18 08:13 10/03/18 11:00 Temperature 96.5 F L Pulse Rate 74 76 Respiratory Rate 20 16 Blood Pressure 116/79 Pulse Oximetry 91 L 94 L 95 GENERAL: weak, follows commands appropriately SKIN: Warm and dry. prevena dressing to chest , incision intact to left leg HEAD: Normocephalic. EYES: No scleral icterus. No injection or drainage. NECK: Supple, trachea midline. No JVD or lymphadenopathy. CARDIOVASCULAR: Regular rate and rhythm without murmurs, gallops, or rubs. mild general edema RESPIRATORY: Breath sounds equal bilaterally. some coarse breath sounds No accessory muscle use. GASTROINTESTINAL: Abdomen soft, non-tender, nondistended. MUSCULOSKELETAL: No cyanosis, + edema. BACK: Nontender without obvious deformity. No CVA tenderness. Labs: Laboratory Results - last 12 hr 09/29/18 09/30/18 09/30/18 19:25 12:45 12:45 WBC RBC Hgb Hct MCV MCH MCHC RDW Plt Count MPV APTT Puncture Site Patient Temperature O2 Saturation ABG pH ABG pCO2 ABG pO2 ABG HCO3 ABG O2 Content ABG Base Excess ABG Methemoglobin Hemoglobin Carboxyhemoglobin O2 Delivery Device Liter Flow Critical Value Sodium Potassium Chloride Carbon Dioxide Anion Gap BUN Creatinine POC Glucose Random Glucose Lactic Acid Calcium Phosphorus Magnesium Total Bilirubin Direct Bilirubin Indirect Bilirubin AST ALT Alkaline Phosphatase Total Protein Albumin Homocysteine Cardiovas 7.1 Beta-2-GPI IgG Ab Less than 9.0 Beta-2-GPI IgA Ab Less than 9.0 Beta-2-GPI IgM Ab Less than 9.0 Heparin Dep Plt Ab OD 0.428 Hep-Induced Plt Ab Sparkle Negative Blood Type Blood Type Recheck Antibody Screen MTS Gel Crossmatch 10/02/18 10/03/18 10/03/18 23:17 01:50 05:13 WBC RBC Hgb Hct MCV MCH MCHC RDW Plt Count MPV APTT Puncture Site Patient Temperature O2 Saturation ABG pH ABG pCO2 ABG pO2 ABG HCO3 ABG O2 Content ABG Base Excess ABG Methemoglobin Hemoglobin Carboxyhemoglobin O2 Delivery Device Liter Flow Critical Value Sodium Potassium Chloride Carbon Dioxide Anion Gap BUN Creatinine POC Glucose 110 Random Glucose Lactic Acid 1.2 Calcium Phosphorus Magnesium Total Bilirubin Direct Bilirubin Indirect Bilirubin AST ALT Alkaline Phosphatase Total Protein Albumin Homocysteine Cardiovas Beta-2-GPI IgG Ab Beta-2-GPI IgA Ab Beta-2-GPI IgM Ab Heparin Dep Plt Ab OD Hep-Induced Plt Ab Sparkle Blood Type B Positive Blood Type Recheck Not needed Antibody Screen Negative MTS Gel Crossmatch See Detail 10/03/18 10/03/18 10/03/18 05:13 05:13 05:13 WBC 7.5 RBC 3.34 L Hgb 10.0 L D Hct 28.7 L MCV 85.9 MCH 30.0 MCHC 34.9 RDW 15.0 Plt Count 75 L MPV 8.7 APTT 52.7 H Puncture Site Patient Temperature O2 Saturation ABG pH ABG pCO2 ABG pO2 ABG HCO3 ABG O2 Content ABG Base Excess ABG Methemoglobin Hemoglobin Carboxyhemoglobin O2 Delivery Device Liter Flow Critical Value Sodium 139 Potassium 4.1 Chloride 109 H Carbon Dioxide 17.9 L Anion Gap 12 BUN 29 H Creatinine 1.08 H POC Glucose Random Glucose 114 H Lactic Acid Calcium 7.6 L Phosphorus 3.7 Magnesium 2.5 Total Bilirubin 1.2 H Direct Bilirubin 0.7 H Indirect Bilirubin 0.5 AST 1157 H ALT 1006 H Alkaline Phosphatase 101 Total Protein 6.1 L Albumin 3.1 L Homocysteine Cardiovas Beta-2-GPI IgG Ab Beta-2-GPI IgA Ab Beta-2-GPI IgM Ab Heparin Dep Plt Ab OD Hep-Induced Plt Ab Sparkle Blood Type Blood Type Recheck Antibody Screen MTS Gel Crossmatch 10/03/18 10/03/18 08:22 09:38 WBC RBC Hgb Hct MCV MCH MCHC RDW Plt Count MPV APTT Puncture Site [place] Patient Temperature 98.6 O2 Saturation 93 ABG pH 7.39 ABG pCO2 29 L ABG pO2 78 ABG HCO3 17 L ABG O2 Content 20.2 H ABG Base Excess -7.0 L ABG Methemoglobin 1.4 Hemoglobin 15.5 Carboxyhemoglobin 0.9 O2 Delivery Device Nonrebreather Liter Flow 15.00 Critical Value No Sodium Potassium Chloride Carbon Dioxide Anion Gap BUN Creatinine POC Glucose 150 H Random Glucose Lactic Acid Calcium Phosphorus Magnesium Total Bilirubin Direct Bilirubin Indirect Bilirubin AST ALT Alkaline Phosphatase Total Protein Albumin Homocysteine Cardiovas Beta-2-GPI IgG Ab Beta-2-GPI IgA Ab Beta-2-GPI IgM Ab Heparin Dep Plt Ab OD Hep-Induced Plt Ab Sparkle Blood Type Blood Type Recheck Antibody Screen MTS Gel Crossmatch Result Diagrams: 10/03/18 05:13 10/03/18 05:13 - Plan (1) CAD (coronary artery disease), [place] coronary artery Plan: ASA, Heparin gtt (2) Diabetes mellitus Plan: diabetic diet insulin sliding scale HGB A1C 8.6 (3) Unstable angina Plan: pain free at this time (4) Renal insufficiency Plan: indices improving (5) Elevated LFTs Plan: tylenol dc amiodarone dc statin dc f/u levels in am GI consulted US calculus cholecystitis (6) Subsequent non-ST elevation (NSTEMI) myocardial infarction Plan: Left heart catheterization, coronary angiogram, bypass angiogram, complex case, moderate sedation at 128 minutes, [place] drug-eluting stent x2 (proximal 2 x 12, mid 2 x 30) to first obtuse marginal, balloon angioplasty of the second obtuse marginal, [place] drug-eluting stent (2 x 30) to mid left circumflex, aspiration thrombectomy of LAD.
--- NOTE | 2018-10-03 12:23 | ECHRPT ---
Indication: HEART FAILURE CONCLUSIONS The left ventricular systolic function is low normal with an estimated ejection fraction in the rang e of 50- 55%. Normal left ventricular size. Wall thickness is normal. No regional wall motion abnormalities are present. Trace mitral valve regurgitation. Mild thickening of the tricuspid valve leaflets. There is moderate tricuspid regurgitation. The estimated pulmonary arterial pressure is 33 mmHg. BP: / HR: Rhythm: Sinus MEASUREMENTS (Male / Female) Normal Values Technical Quality:Poor 2D ECHO LV Ejection Fraction MOD BP 56.7 % >= 55 % LV Ejection Fraction MOD 4C 55.4 % LV Ejection Fraction 4C AL 56.7 % LV Ejection Fraction MOD 2C 55.0 % LV Ejection Fraction 2C AL 56.8 % M-MODE LV Diastolic Diameter MM 6.6 cm 4.2 - 5.9 / 3.9 - 5.3 cm LV Systolic Diameter MM 5.1 cm LV Ejection Fraction MM Teich 44.1 % IVS Diastolic Thickness MM 1.1 cm 0.6 - 1.0 / 0.6 - 0.9 cm LVPW Diastolic Thickness MM 1.1 cm 0.6 - 1.0 / 0.6 - 0.9 cm LV Relative Wall Thickness MM 0.3 0.24 - 0.42 / 0.22 - 0.42 DOPPLER MV Area PHT 6.1 cm Mitral E Point Velocity 76.0 cm/s Mitral A Point Velocity 52.3 cm/s Mitral E to A Ratio 1.5 TR Peak Velocity 239.0 cm/s TR Peak Gradient 22.8 mmHg Right Atrial Pressure 10.0 mmHg Pulmonary Artery Systolic Pressu 32.8 mmHg Right Ventricular Systolic Press 32.8 mmHg FINDINGS LEFT VENTRICLE The left ventricular systolic function is low normal with an estimated ejection fraction in the rang e of 50- 55%. Normal left ventricular size. Wall thickness is normal. No regional wall motion abnormalities are present. MITRAL VALVE Structurally normal mitral valve. Trace mitral valve regurgitation. TRICUSPID VALVE Mild thickening of the tricuspid valve leaflets. There is moderate tricuspid regurgitation. The estimated pulmonary arterial pressure is 32.8 mmHg. Mauricio Chen MD, FACC (Electronically Signed) Final Date:03 October 2018 12:22
--- NOTE | 2018-10-03 13:01 | P.PNONC ---
Subjective Interval history: Afebrile. Patient sitting in recliner, with partial nonrebreather on. She is alert and oriented asking questions. Objective Vital Signs/Intake & Output: Vital Signs 10/02/18 14:56 10/02/18 15:00 10/02/18 15:15 Temperature 97.5 F L Pulse Rate 73 76 Respiratory Rate 20 16 Blood Pressure 86/60 L Pulse Oximetry 96 96 10/02/18 15:41 10/02/18 19:00 10/02/18 20:00 Temperature 98.7 F Pulse Rate 76 76 78 Respiratory Rate 14 Blood Pressure 85/64 L Pulse Oximetry 94 L 10/02/18 21:08 10/02/18 22:07 10/02/18 23:00 Temperature 97.9 F Pulse Rate 79 76 Respiratory Rate 24 14 14 Blood Pressure 89/62 L Pulse Oximetry 94 L 94 L 10/03/18 00:46 10/03/18 01:01 10/03/18 01:03 Temperature 98.3 F 98.4 F 98.3 F Pulse Rate 78 75 75 Respiratory Rate 16 16 16 Blood Pressure 79/57 L 91/60 L 82/64 L Pulse Oximetry 95 95 96 10/03/18 03:08 10/03/18 03:13 10/03/18 03:15 Temperature 98.3 F 98.3 F Pulse Rate 74 74 Respiratory Rate 16 16 Blood Pressure 95/68 L 95/68 L Pulse Oximetry 94 L 94 L 10/03/18 03:19 10/03/18 04:00 10/03/18 04:03 Temperature 97.7 F Pulse Rate 74 73 Respiratory Rate 16 16 Blood Pressure 104/72 Pulse Oximetry 94 L 10/03/18 04:53 10/03/18 05:00 10/03/18 07:00 Temperature 98.6 F 98.1 F Pulse Rate 80 Respiratory Rate 14 Blood Pressure 91/60 L Pulse Oximetry 98 91 L 10/03/18 07:48 10/03/18 08:13 10/03/18 11:00 Temperature 96.5 F L Pulse Rate 74 76 Respiratory Rate 20 16 Blood Pressure 116/79 Pulse Oximetry 91 L 94 L 95 Intake & Output 10/02/18 10/03/18 10/03/18 18:59 06:59 18:59 Intake Total 2322 / 2322 1570 / 1570 Output Total 195 / 195 245 / 245 Balance 2126 / 2127 1325 / 1325 Weight 84 kg Intake: IV 1656 / 1656 Heparin/D5W 25,000 U/250 mL 25, 232 / 232 000 unit In 250 ml @ Per Protocol IV.CONT TITRATE PRN Rx #:[id number] Neosynephrine Inj 40 MG In NS 74 / 74 Inj 496 ML @ 40 MCG/MIN 30 mls/ hr IV.CONT TITRATE PRN Rx#: [id number] Flexbumin 25% Inj 100 ML @ 60 100 / 100 mls/hr IV.SIG ONCE ONE Rx#: [id number] Buminate 5% Inj 250 ML @ 250 250 / 250 mls/hr IV.SIG ONCE ONE Rx#: [id number] LR 1000 mL Inj 500 ML @ 500 mls 1000 / 1000 /hr IV.SIG ONCE ONE Rx#: [id number] Oral 480 / 480 420 / 420 Other 186 / 186 350 / 350 Rbc As-3 Leukoreduced Unit 100 / 100 [id number] Rbc As-3 Leukoreduced Unit 250 / 250 [id number] Intake (Blood Product) Amt 800 / 800 Rbc As-3 Leukoreduced Unit 400 / 400 [id number] Rbc As-3 Leukoreduced Unit 400 / 400 [id number] Output: Urine Amount (Catheter) 185 / 185 235 / 235 Indwelling Temp Sensing 185 / 185 235 / 235 Catheter Chest Tube Drainage Pleural/Mediastinal Other: Other Intake Source Saline Solution Rbc As-3 Leukoreduced Unit Saline Solution [id number] Rbc As-3 Leukoreduced Unit Saline Solution [id number] Result Diagrams: 10/03/18 05:13 10/03/18 05:13 Laboratory Results: Laboratory Results - last 24 hr 09/29/18 09/30/18 09/30/18 19:25 12:45 12:45 WBC RBC Hgb Hct MCV MCH MCHC RDW Plt Count MPV Prelim Diff (Auto) Neut % (Auto) Lymph % (Auto) Esmeralda % (Auto) Eos % (Auto) Baso % (Auto) Neut # (Auto) Lymph # (Auto) Esmeralda # (Auto) Eos # (Auto) Baso # (Auto) WBC Differential Diff Scan Differential Comment Platelet Estimate Platelet Morphology APTT Puncture Site Patient Temperature O2 Saturation ABG pH ABG pCO2 ABG pO2 ABG HCO3 ABG O2 Content ABG Base Excess ABG Methemoglobin VBG pH VBG pCO2 VBG pO2 VBG HCO3 VBG O2 Saturation VBG O2 Content VBG Base Excess VBG Carboxyhemoglobin VBG Methemoglobin Hemoglobin Carboxyhemoglobin O2 Delivery Device Liter Flow Critical Value Sodium Potassium Chloride Carbon Dioxide Anion Gap BUN Creatinine Estimated GFR POC Glucose Random Glucose Lactic Acid Calcium Phosphorus Magnesium Total Bilirubin Direct Bilirubin Indirect Bilirubin AST ALT Alkaline Phosphatase Ammonia Total Protein Albumin Homocysteine Cardiovas 7.1 Urine Eosinophils Ur Random Creatinine Ur Random Sodium Beta-2-GPI IgG Ab Less than 9.0 Beta-2-GPI IgA Ab Less than 9.0 Beta-2-GPI IgM Ab Less than 9.0 Heparin Dep Plt Ab OD 0.428 Hep-Induced Plt Ab Sparkle Negative Blood Type Blood Type Recheck Antibody Screen MTS Gel Crossmatch 10/02/18 10/02/18 10/02/18 13:28 15:45 16:17 WBC RBC Hgb Hct MCV MCH MCHC RDW Plt Count MPV Prelim Diff (Auto) Neut % (Auto) Lymph % (Auto) Esmeralda % (Auto) Eos % (Auto) Baso % (Auto) Neut # (Auto) Lymph # (Auto) Esmeralda # (Auto) Eos # (Auto) Baso # (Auto) WBC Differential Diff Scan Differential Comment Platelet Estimate Platelet Morphology APTT Puncture Site Central line Patient Temperature 98.6 O2 Saturation ABG pH ABG pCO2 ABG pO2 ABG HCO3 ABG O2 Content ABG Base Excess ABG Methemoglobin VBG pH 7.39 VBG pCO2 34 L VBG pO2 24 L* VBG HCO3 20 L VBG O2 Saturation 34 L VBG O2 Content 3.8 L VBG Base Excess -3.7 L VBG Carboxyhemoglobin 0.9 VBG Methemoglobin 1.7 Hemoglobin 8.0 L Carboxyhemoglobin O2 Delivery Device Nasal cannula Liter Flow 3.00 Critical Value Yes Sodium Potassium Chloride Carbon Dioxide Anion Gap BUN Creatinine Estimated GFR POC Glucose 166 H Random Glucose Lactic Acid 1.6 Calcium Phosphorus Magnesium Total Bilirubin Direct Bilirubin Indirect Bilirubin AST ALT Alkaline Phosphatase Ammonia Total Protein Albumin Homocysteine Cardiovas Urine Eosinophils Ur Random Creatinine Ur Random Sodium Beta-2-GPI IgG Ab Beta-2-GPI IgA Ab Beta-2-GPI IgM Ab Heparin Dep Plt Ab OD Hep-Induced Plt Ab Sparkle Blood Type Blood Type Recheck Antibody Screen MTS Gel Crossmatch 10/02/18 10/02/18 10/02/18 16:17 17:02 17:45 WBC RBC Hgb Hct MCV MCH MCHC RDW Plt Count MPV Prelim Diff (Auto) Neut % (Auto) Lymph % (Auto) Esmeralda % (Auto) Eos % (Auto) Baso % (Auto) Neut # (Auto) Lymph # (Auto) Esmeralda # (Auto) Eos # (Auto) Baso # (Auto) WBC Differential Diff Scan Differential Comment Platelet Estimate Platelet Morphology APTT Puncture Site Patient Temperature O2 Saturation ABG pH ABG pCO2 ABG pO2 ABG HCO3 ABG O2 Content ABG Base Excess ABG Methemoglobin VBG pH VBG pCO2 VBG pO2 VBG HCO3 VBG O2 Saturation VBG O2 Content VBG Base Excess VBG Carboxyhemoglobin VBG Methemoglobin Hemoglobin Carboxyhemoglobin O2 Delivery Device Liter Flow Critical Value Sodium 140 Potassium 4.3 Chloride 109 H Carbon Dioxide 19.0 L Anion Gap 12 BUN 23 H Creatinine 1.02 H Estimated GFR 68 L POC Glucose 165 H Random Glucose 165 H Lactic Acid Calcium 7.7 L Phosphorus Magnesium Total Bilirubin Direct Bilirubin Indirect Bilirubin AST ALT Alkaline Phosphatase Ammonia Total Protein Albumin Homocysteine Cardiovas Urine Eosinophils Ur Random Creatinine 301 H Ur Random Sodium Less than 5 Beta-2-GPI IgG Ab Beta-2-GPI IgA Ab Beta-2-GPI IgM Ab Heparin Dep Plt Ab OD Hep-Induced Plt Ab Sparkle Blood Type Blood Type Recheck Antibody Screen MTS Gel Crossmatch 10/02/18 10/02/18 10/02/18 17:45 21:27 22:07 WBC RBC Hgb Hct MCV MCH MCHC RDW Plt Count MPV Prelim Diff (Auto) Neut % (Auto) Lymph % (Auto) Esmeralda % (Auto) Eos % (Auto) Baso % (Auto) Neut # (Auto) Lymph # (Auto) Esmeralda # (Auto) Eos # (Auto) Baso # (Auto) WBC Differential Diff Scan Differential Comment Platelet Estimate Platelet Morphology APTT Puncture Site Patient Temperature O2 Saturation ABG pH ABG pCO2 ABG pO2 ABG HCO3 ABG O2 Content ABG Base Excess ABG Methemoglobin VBG pH VBG pCO2 VBG pO2 VBG HCO3 VBG O2 Saturation VBG O2 Content VBG Base Excess VBG Carboxyhemoglobin VBG Methemoglobin Hemoglobin Carboxyhemoglobin O2 Delivery Device Liter Flow Critical Value Sodium Potassium Chloride Carbon Dioxide Anion Gap BUN Creatinine Estimated GFR POC Glucose 159 H Random Glucose Lactic Acid 1.6 Calcium Phosphorus Magnesium Total Bilirubin Direct Bilirubin Indirect Bilirubin AST ALT Alkaline Phosphatase Ammonia Total Protein Albumin Homocysteine Cardiovas Urine Eosinophils None seen Ur Random Creatinine Ur Random Sodium Beta-2-GPI IgG Ab Beta-2-GPI IgA Ab Beta-2-GPI IgM Ab Heparin Dep Plt Ab OD Hep-Induced Plt Ab Sparkle Blood Type Blood Type Recheck Antibody Screen MTS Gel Crossmatch 10/02/18 10/02/18 10/02/18 22:07 22:07 23:17 WBC 7.8 RBC 2.46 L Hgb 7.4 L Hct 21.1 L MCV 85.6 MCH 30.1 MCHC 35.2 RDW 14.8 Plt Count 85 L MPV 8.9 Prelim Diff (Auto) Slide review pending Neut % (Auto) 66.6 Lymph % (Auto) 26.0 Esmeralda % (Auto) 6.1 Eos % (Auto) 0.9 Baso % (Auto) 0.4 Neut # (Auto) 5.2 Lymph # (Auto) 2.0 Esmeralda # (Auto) 0.5 Eos # (Auto) 0.1 Baso # (Auto) 0.0 WBC Differential . Diff Scan Auto diff confirmed Differential Comment . Platelet Estimate Low L Platelet Morphology Normal APTT Puncture Site Patient Temperature O2 Saturation ABG pH ABG pCO2 ABG pO2 ABG HCO3 ABG O2 Content ABG Base Excess ABG Methemoglobin VBG pH VBG pCO2 VBG pO2 VBG HCO3 VBG O2 Saturation VBG O2 Content VBG Base Excess VBG Carboxyhemoglobin VBG Methemoglobin Hemoglobin Carboxyhemoglobin O2 Delivery Device Liter Flow Critical Value Sodium Potassium Chloride Carbon Dioxide Anion Gap BUN Creatinine Estimated GFR POC Glucose Random Glucose Lactic Acid Calcium Phosphorus Magnesium Total Bilirubin Direct Bilirubin Indirect Bilirubin AST ALT Alkaline Phosphatase Ammonia 53 H Total Protein Albumin Homocysteine Cardiovas Urine Eosinophils Ur Random Creatinine Ur Random Sodium Beta-2-GPI IgG Ab Beta-2-GPI IgA Ab Beta-2-GPI IgM Ab Heparin Dep Plt Ab OD Hep-Induced Plt Ab Sparkle Blood Type B Positive Blood Type Recheck Not needed Antibody Screen Negative MTS Gel Crossmatch See Detail 10/03/18 10/03/18 10/03/18 01:50 05:13 05:13 WBC RBC Hgb Hct MCV MCH MCHC RDW Plt Count MPV Prelim Diff (Auto) Neut % (Auto) Lymph % (Auto) Esmeralda % (Auto) Eos % (Auto) Baso % (Auto) Neut # (Auto) Lymph # (Auto) Esmeralda # (Auto) Eos # (Auto) Baso # (Auto) WBC Differential Diff Scan Differential Comment Platelet Estimate Platelet Morphology APTT Puncture Site Patient Temperature O2 Saturation ABG pH ABG pCO2 ABG pO2 ABG HCO3 ABG O2 Content ABG Base Excess ABG Methemoglobin VBG pH VBG pCO2 VBG pO2 VBG HCO3 VBG O2 Saturation VBG O2 Content VBG Base Excess VBG Carboxyhemoglobin VBG Methemoglobin Hemoglobin Carboxyhemoglobin O2 Delivery Device Liter Flow Critical Value Sodium 139 Potassium 4.1 Chloride 109 H Carbon Dioxide 17.9 L Anion Gap 12 BUN 29 H Creatinine 1.08 H Estimated GFR POC Glucose 110 Random Glucose 114 H Lactic Acid 1.2 Calcium 7.6 L Phosphorus 3.7 Magnesium 2.5 Total Bilirubin 1.2 H Direct Bilirubin 0.7 H Indirect Bilirubin 0.5 AST 1157 H ALT 1006 H Alkaline Phosphatase 101 Ammonia Total Protein 6.1 L Albumin 3.1 L Homocysteine Cardiovas Urine Eosinophils Ur Random Creatinine Ur Random Sodium Beta-2-GPI IgG Ab Beta-2-GPI IgA Ab Beta-2-GPI IgM Ab Heparin Dep Plt Ab OD Hep-Induced Plt Ab Sparkle Blood Type Blood Type Recheck Antibody Screen MTS Gel Crossmatch 10/03/18 10/03/18 10/03/18 05:13 05:13 08:22 WBC 7.5 RBC 3.34 L Hgb 10.0 L D Hct 28.7 L MCV 85.9 MCH 30.0 MCHC 34.9 RDW 15.0 Plt Count 75 L MPV 8.7 Prelim Diff (Auto) Neut % (Auto) Lymph % (Auto) Esmeralda % (Auto) Eos % (Auto) Baso % (Auto) Neut # (Auto) Lymph # (Auto) Esmeralda # (Auto) Eos # (Auto) Baso # (Auto) WBC Differential Diff Scan Differential Comment Platelet Estimate Platelet Morphology APTT 52.7 H Puncture Site [place] Patient Temperature 98.6 O2 Saturation 93 ABG pH 7.39 ABG pCO2 29 L ABG pO2 78 ABG HCO3 17 L ABG O2 Content 20.2 H ABG Base Excess -7.0 L ABG Methemoglobin 1.4 VBG pH VBG pCO2 VBG pO2 VBG HCO3 VBG O2 Saturation VBG O2 Content VBG Base Excess VBG Carboxyhemoglobin VBG Methemoglobin Hemoglobin 15.5 Carboxyhemoglobin 0.9 O2 Delivery Device Nonrebreather Liter Flow 15.00 Critical Value No Sodium Potassium Chloride Carbon Dioxide Anion Gap BUN Creatinine Estimated GFR POC Glucose Random Glucose Lactic Acid Calcium Phosphorus Magnesium Total Bilirubin Direct Bilirubin Indirect Bilirubin AST ALT Alkaline Phosphatase Ammonia Total Protein Albumin Homocysteine Cardiovas Urine Eosinophils Ur Random Creatinine Ur Random Sodium Beta-2-GPI IgG Ab Beta-2-GPI IgA Ab Beta-2-GPI IgM Ab Heparin Dep Plt Ab OD Hep-Induced Plt Ab Sparkle Blood Type Blood Type Recheck Antibody Screen MTS Gel Crossmatch 10/03/18 09:38 WBC RBC Hgb Hct MCV MCH MCHC RDW Plt Count MPV Prelim Diff (Auto) Neut % (Auto) Lymph % (Auto) Esmeralda % (Auto) Eos % (Auto) Baso % (Auto) Neut # (Auto) Lymph # (Auto) Esmeralda # (Auto) Eos # (Auto) Baso # (Auto) WBC Differential Diff Scan Differential Comment Platelet Estimate Platelet Morphology APTT Puncture Site Patient Temperature O2 Saturation ABG pH ABG pCO2 ABG pO2 ABG HCO3 ABG O2 Content ABG Base Excess ABG Methemoglobin VBG pH VBG pCO2 VBG pO2 VBG HCO3 VBG O2 Saturation VBG O2 Content VBG Base Excess VBG Carboxyhemoglobin VBG Methemoglobin Hemoglobin Carboxyhemoglobin O2 Delivery Device Liter Flow Critical Value Sodium Potassium Chloride Carbon Dioxide Anion Gap BUN Creatinine Estimated GFR POC Glucose 150 H Random Glucose Lactic Acid Calcium Phosphorus Magnesium Total Bilirubin Direct Bilirubin Indirect Bilirubin AST ALT Alkaline Phosphatase Ammonia Total Protein Albumin Homocysteine Cardiovas Urine Eosinophils Ur Random Creatinine Ur Random Sodium Beta-2-GPI IgG Ab Beta-2-GPI IgA Ab Beta-2-GPI IgM Ab Heparin Dep Plt Ab OD Hep-Induced Plt Ab Sparkle Blood Type Blood Type Recheck Antibody Screen MTS Gel Crossmatch Culture Results: Microbiology 10/01/18 11:39 Aerobic Blood Culture - Preliminary Blood - Peripheral No growth in 2 days Anaerobic Blood Culture - Preliminary No growth in 2 days 10/01/18 11:11 Aerobic Blood Culture - Preliminary Blood - Peripheral No growth in 2 days Anaerobic Blood Culture - Preliminary No growth in 2 days Imaging Studies: Impressions Abdomen/Bladder Ultrasound 10/02/18 00:00 CONCLUSION: 1. Increased echogenicity of the kidneys characteristic of medical renal disease. No hydronephrosis. No perinephric fluid. Barba catheter in bladder, decompressed. Chest X-Ray 10/03/18 06:00 CONCLUSION: 1. Endotracheal tube and nasogastric tube no longer seen. 2. Patchy left lung base atelectasis versus consolidation and mild diffuse hazy bilateral lung opacity. Medications: Active Medications Generic Name Dose Route Start Last Admin Trade Name Freq PRN Reason Stop Dose Admin Al Hydroxide/Mg Hydroxide 30 ml 10/02/18 09:00 10/03/18 08:18 Milk Of Magnesia Liq PO 30 ml DAILY ESTELLE Administration Albuterol 1 ampul 10/02/18 14:00 10/03/18 08:12 Duoneb Neb (Estelle) NEB 10/04/18 13:59 1 ampul Q6HR WHILE AWAKE NEB ESTELLE Administration Amiodarone HCl 200 mg 09/29/18 21:00 10/02/18 20:05 Cordarone PO 200 mg Q12HR ESTELLE Administration Aspirin 81 mg 09/30/18 09:00 10/03/18 08:20 Aspirin Chew PO 81 mg DAILY ESTELLE Administration Atorvastatin Calcium 20 mg 09/25/18 21:00 10/02/18 20:05 Lipitor PO 20 mg HS ESTELLE Administration Clopidogrel Bisulfate 75 mg 09/30/18 09:00 10/03/18 08:19 Plavix PO 75 mg DAILY ESTELLE Administration Docusate Sodium 100 mg 10/02/18 21:00 10/03/18 08:20 Colace PO 100 mg BID ESTELLE Administration Magnesium Sulfate 2 gm/ Sodium 100 mls @ 50 mls/hr 09/29/18 13:35 10/01/18 12 :00 Chloride IV.SIG Infused PRN PRN Infusion SEE LABEL COMMENTS Phenylephrine HCl 40 mg/ 500 mls @ 30 mls/hr 09/29/18 13:35 10/02/18 18:00 Sodium Chloride IV.CONT 40 mcg/min TITRATE PRN 30 mls/hr See Protocol Titration Protocol 40 MCG/MIN Potassium Chloride 20 meq in 100 mls @ 50 mls/hr 09/29/18 13:35 10/01/18 16: 31 Kcl 20 Meq Premix Inj IV.SIG Infused PRN PRN Infusion SEE LABEL COMMENTS Potassium Chloride 20 meq in 100 mls @ 50 mls/hr 09/29/18 13:35 09/30/18 01: 35 Kcl 20 Meq Premix Inj IV.SIG Infused PRN PRN Infusion SEE LABEL COMMENTS Heparin Sodium/Dextrose 25,000 unit in 250 mls @ 0 mls/hr 09/30/18 00:44 10/09 18:00 Heparin/D5w 25,000 U/250 Ml IV.CONT 9 units/hr TITRATE PRN 0.09 mls/hr Per Protocol Titration Protocol Per Protocol Isosorbide Mononitrate 30 mg 09/24/18 09:00 09/30/18 12:01 Imdur PO Not Given DAILY ESTELLE Multivitamins/Minerals 1 tab 10/02/18 09:00 10/03/18 08:20 Theragran-M PO 1 tab DAILY ESTELLE Administration Mupirocin 1 applicatio 10/02/18 21:00 10/03/18 08:20 Bactroban 2% Nasal Oint EACH NARE 1 applicatio BID ESTELLE Administration Pantoprazole Sodium 40 mg 09/30/18 11:00 10/03/18 08:18 Protonix Inj IV.PUSH 40 mg DAILY ESTELLE Administration Polyethylene Glycol 17 gm 10/03/18 09:00 10/03/18 08:18 Miralax PO 17 gm DAILY ESTELLE Administration Ranolazine 500 mg 09/24/18 09:00 10/03/18 08:20 Ranexa PO 500 mg Q12H ESTELLE Administration Senna/Docusate Sodium 1 tab 09/24/18 09:00 10/03/18 08:19 Jacqui-Colace PO 1 tab BID ESTELLE Administration Sennosides 8.6 mg 10/02/18 21:00 10/02/18 20:06 Senokot PO Not Given HS ESTELLE Sertraline HCl 50 mg 09/24/18 09:00 10/03/18 08:20 Zoloft PO 50 mg DAILY ESTELLE Administration Sodium Chloride 2 ml 09/24/18 09:00 10/03/18 08:18 Ns Flush IV.FLUSH 2 ml BID ESTELLE Administration Temazepam 7.5 mg 09/24/18 21:00 10/02/18 20:06 Restoril PO Not Given HS ESTELLE Objective Remarks: GENERAL: Critically ill-appearing female patient in no acute distress. SKIN: Warm, diaphoretic. Surgical dressing sternum. HEAD: Normocephalic. EYES: No scleral icterus. No injection or drainage. NECK: Supple, trachea midline. Rt central line. CARDIOVASCULAR: Distant heart sounds. RESPIRATORY: Breath sounds distant. No accessory muscle use. Partial nonrebreather. +Chest tubes. GASTROINTESTINAL: Abdomen large, soft, non-tender, nondistended. EXTREMITIES: No cyanosis, or edema. MUSCULOSKELETAL: Adequate muscle tone. NEUROLOGICAL: No obvious focal deficit. Awake, alert. PSYCHIATRIC: Appropriate mood and affect. Assessment/Plan - Plan Ms. Lira is a critically ill 58-year-old female patient who underwent urgent off-pump coronary artery bypass grafting x4 on 09/29/2018. The patient suffered occlusions of the graft within hours of undergoing surgery and she underwent left heart catheterization which revealed significant thrombus formation within the saphenous venous graft to the first and second obtuse marginals, additional thrombus had developed along the left anterior descending artery. The arterial thrombosis within the graft occurred while the patient was on antiplatelet agents. Hematology was consulted to rule out prothrombotic condition. Recommendations: 1. 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 Prothrombotic workup is pending. HIT SPARKLE negative. 2. Critical care management per public health specialist. 3. Status post 2 units PRBCs overnight for hemoglobin of 7.4. Reviewed public health specialist note, patient became hypoxemic post transfusion was placed on nonrebreather, chest x-ray showed worsening pulmonary vascular congestion/ pulmonary edema. 4. Increased liver enzymes, AST 1157, ALT 1006, liver ultrasound suggestive of calculus cholecystitis, GI has been consulted, Tylenol products, amiodarone and atorvastatin held per attending.
[2018-10-03] MEDS: Morphine Inj 4 MG/ML Vial IV.PUSH PRN ×2 (13:08→20:03)
--- NOTE | 2018-10-03 13:55 | P.DCO ---
- Diagnosis (1) S/P coronary artery bypass graft x 4 Status: Acute (2) Renal insufficiency Status: Chronic (3) CAD (coronary artery disease), [place] coronary artery Status: Acute (4) Diabetes mellitus Status: Chronic (5) Subsequent non-ST elevation (NSTEMI) myocardial infarction Status: Acute - Home Health Nursing Order: Medical education, Signs/symptoms of disease process, Diabetic education , Wound care and dressing changes, Nursing assessment with vital signs Instructions: Heart and Vascular Surgery patients *Special attention to sternal dressing Mandatory frequency Assess and evaluation, 4 days in a row The next week 3X week 2 times a week for 4 weeks 1 time a week for 5 weeks Schedule Heart and Vascular patients for full 60 day certification period Initial visit Review Open Heart Surgery Discharge Instructions (Sternal precautions, Activity, Elastic hose, Incision care, Driving, Incentive spirometry, Smoking, [place], Work and other) Need Betadine to paint incision Medication reconciliation Importance of follow up care/ check on appointments Make calendar record temperature daily When to call [facility] at Home nurse, review instructions, phone list Incentive Spirometry, demonstration Visit 1- Begin discharge instruction for patient family and/ or caregiver using teach back method- Signs and symptoms of infection Disease characteristics Medicines and side effects Foods and nutrition/ appetite Infection control/ hand washing/ hygiene Visit 2- Continue teaching Discharge instructions- include additional information on smoking cessation , sternal dressing (sternal vac) Visit 3- Continue teaching- Cough and deep breathing, incision monitoring. Choose my plate Visit 4- Continue teaching- Discuss limitations Discuss how they are feeling Discuss progress toward goals Remaining visits- continue teaching and monitoring For any questions please call : Wednesday 8am-5pm Heart & Vascular Surgery Office ( Dr. Campos & Dr. Johnson), After Hours / Nights (5pm -8am) Weekends and Holidays Please call [facility] ([facility]) Charge Nurse PREVENA Single Use Negative Wound Therapy System Caregiver Instruction Sheet 1. A Prevena dressing system was applied to the chest incision during surgery , to promote wound healing. It works via a suction device (negative pressure wound therapy) to remove low to moderate levels of exudate (drainage) and infectious materials. We recommend that the device stay in place for up to seven days, from day of surgery. 2. Day of Surgery__09/29/18 Day of Removal ____10/06/18 3. The dressing should only be removed by a health home care coordinator. Please arrange removal of device to coincide with Home Health visit and or with Nursing staff at Rehab 4. If skin reddening or irritation of skin occurs, or excessive drainage, please notify the Cardiovascular Surgeons office at [phone]. 5. Light showering is permissible; however the pump should be disconnected and placed in safe location, where it will not get wet. The dressing should not be exposed to direct spray or submerged in water. No bath tub / shower only. Ensure the end of the tubing attached to the dressing is facing down so that water does not enter the top of the tube. 6. To remove Prevena dressing: press purple button to turn off device / remove the suction. Then disconnect the tubing from the pump. The fixation strips should be stretched away from the skin and the dressing lifted at one corner and peeled back until it has been fully removed. 7. After removal, it is ok to shower daily using liquid dial soap and clean wash cloth, rinse and pat dry, and leave incision open to air dry. For any concerns regarding Prevena dressing, and or wounds, please contact Leti Cedeno, patient navigator at [phone] or notify the Cardiovascular Surgeons office at [phone]. Incentive spirometry Q1 hr x 10, while awake, also use acapella device hourly whole awake Sternal Breast Bone Precautions: NO pushing or pulling, ( pt must use sternal pillow to support chest with all activities and with coughing ( takes up to 3 months breast bone to heal ) All females to wear sternal bra , launder as needed Daily incision care: ok to shower daily, no tub bath. Wash all incisions with liquid dial soap, clean wash cloth to each site, rinse and pat dry. Observe for any signs of infection, such as drainage which is dark yellow, philip, green or foul smelling. Immediately report to the surgeon any drainage from the chest incision, or legs, and for any abnormal drainage from the chest tube sites. Notify surgeon if any temp >101.5 degrees F. When specialty dressing removed/ or if you do not have one, continue to shower daily as above, then rinse and pat incision dry and paint with betadine daily x 5 days. Allow steri strips to fall off if you have any. Avoid lotions, creams, salves, oils, etc. for the first month Please see attached forms for additional instructions regarding post Open Heart specialty wound vacuum dressings. DONOVAN or Prevena , Dressing to be removed by Nursing staff on _10/06/18 F/U appointment: as per [place] instructions: PCP in 2 weeks, CV surgeon 2 weeks, Header Up 3-4 weeks For any questions regarding incisions/ dressing / meds / post op care or above Symptoms, Wednesday 8am-5pm Heart & Vascular Surgery Office ( Dr. Campos & Dr. Johnson), After Hours / Nights (5pm -8am) Weekends and Holidays Please call [facility] ([facility]) Charge Nurse - Case Management Consult Yes - Certification I have seen patient Aditi Lira on 10/03/18. My clinical findings support the need for the requested home health care services because: Patient has SOB, Deconditioned with increased weakness I certify that my clinical findings support that this patient is homebound because: Post-op weakness
--- NOTE | 2018-10-03 14:15 | P.CONGI ---
History of Present Illness Consult date: 10/03/18 Consult reason: Probable acalculous cholecystitis Chief complaint: unstable angina History of Present Illness: This patient is a 58-year-old female with a past medical history significant for coronary artery disease and diabetes mellitus. Patient presented to the emergency room at [facility] [place] on 09/24/2018 with complaint of chest pain for 1 week. 09/29/2018 patient underwent coronary artery bypass grafting x 4. Patient presently on heparin drip and aspirin. Patient extubated on nonrebreather mask sinus rhythm in the 70s BP 122/70 saturation 95-96%. Our service has been consulted to evaluate patient's elevated liver enzymes. Total bilirubin 0.5 AST 1157 ALT 1006 alk phos 101 ammonia 53. Upon consultation patient reports surgical history significant for hysterectomy , carpal tunnel surgery and right shoulder surgery. Patient denies any nausea or vomiting or diarrhea. She denies any known family history for gastrointestinal disorders. States last EGD was 10 years ago where she was tested positive for H. pylori. Patient denies ever having had a colonoscopy in the past. She reports having 1 daily BM that is soft and brown without any noted bleeding. <Stacey Brothers - Last Filed: 10/03/18 13:56> Review of Systems All other systems reviewed negative except as stated in HPI <Stacey Brothers - Last Filed: 10/03/18 13:56> PMFSH - History History Provided By: Medical Record - Medical History Medical History: Medical History (Last Reviewed 10/03/18 @ 08:10 by Enid Sullivan Behavior Clinician, STREET SUPERINTENDENT) Chronic renal insufficiency, stage II (mild) Coronary artery disease Diabetes mellitus MDRO (multiple drug resistant organisms) resistance Onset Date: ~09/25/18 Myocardial infarction - Family History Family History: Family History (Last Reviewed 10/03/18 @ 07:49 by Ron Song, LIZBET) Other Family history non-contributory - Tobacco History Second Hand Smoke Exposure: No Smoking Status: Never smoker - Alcohol History How Often Do You Have a Drink Containing Alcohol: Never - Substance Use History Substance History: No History of Abuse - Travel History Recent Travel in the [place] Within the Last 8 Weeks: No Recent Travel Out of the Country Within the Last 8 Weeks: No - Immunization History Tetanus Immunization: Unsure <Stacey Brothers - Last Filed: 10/03/18 13:56> - Medical History Medical History: Medical History (Last Reviewed 10/03/18 @ 08:10 by Enid Sullivan Behavior Clinician, STREET SUPERINTENDENT) Chronic renal insufficiency, stage II (mild) Coronary artery disease Diabetes mellitus MDRO (multiple drug resistant organisms) resistance Onset Date: ~09/25/18 Myocardial infarction - Family History Family History: Family History (Last Reviewed 10/03/18 @ 07:49 by Ron Song, PT) Other Family history non-contributory <Js Lyons - Last Filed: 10/03/18 22:34> Medications and Allergies Active Medications: Active Medications Al Hydroxide/Mg Hydroxide (Milk Of Nils Liq) [address] [facility] Last Admin: 10/03/18 08:18 Dose: 30 ml Albuterol (Duoneb Neb (Prn)) 1 ampul NEB Q2HR NEB PRN PRN Reason: WHEEZING Albuterol (Duoneb Neb (Estelle)) 1 ampul NEB Q6HR WHILE AWAKE NEB ESTELLE Stop: 10/04/18 13:59 Last Admin: 10/03/18 08:12 Dose: 1 ampul Amiodarone HCl (Cordarone) [address] [facility] Last Admin: 10/02/18 20:05 Dose: 200 mg Aspirin (Aspirin Chew) [address] [facility] Last Admin: 10/03/18 08:20 Dose: 81 mg Atorvastatin Calcium (Lipitor) [address] [facility] Last Admin: 10/02/18 20:05 Dose: 20 mg Bisacodyl (Dulcolax Supp) 10 mg RECTAL PRN PRN PRN Reason: SEE LABEL COMMENTS Clopidogrel Bisulfate (Plavix) [address] [facility] Last Admin: 10/03/18 08:19 Dose: 75 mg Dextrose (D50w Vial) 50 ml IV.PUSH UNSCH PRN PRN Reason: PER HYPOGLYCEMIA PROTOCOL Docusate Sodium (Colace) [address] [facility] Last Admin: 10/03/18 08:20 Dose: 100 mg Glucagon (Glucagon Inj) 1 mg OTHER PRN PRN PRN Reason: For hypoglycemia Magnesium Sulfate 2 gm/ Sodium (Chloride) 100 mls @ 50 mls/hr IV.SIG PRN PRN PRN Reason: SEE LABEL COMMENTS Last Infusion: 10/01/18 12:00 Dose: Infused Magnesium Sulfate 2 gm/ Sodium (Chloride) 100 mls @ 50 mls/hr IV.SIG PRN PRN PRN Reason: SEE LABEL COMMENTS Phenylephrine HCl 40 mg/ (Sodium Chloride) 500 mls @ 30 mls/hr IV.CONT TITRATE PRN; Protocol PRN Reason: See Protocol Last Titration: 10/02/18 18:00 Dose: 40 mcg/min, 30 mls/hr Potassium Chloride (Kcl 20 Meq Premix Inj) 20 meq in 100 mls @ 50 mls/hr IV.SIG PRN PRN PRN Reason: SEE LABEL COMMENTS Last Infusion: 10/01/18 16:31 Dose: Infused Potassium Chloride (Kcl 20 Meq Premix Inj) 20 meq in 100 mls @ 50 mls/hr IV.SIG PRN PRN PRN Reason: SEE LABEL COMMENTS Potassium Chloride (Kcl 20 Meq Premix Inj) 20 meq in 100 mls @ 50 mls/hr IV.SIG PRN PRN PRN Reason: SEE LABEL COMMENTS Last Infusion: 09/30/18 01:35 Dose: Infused Heparin Sodium/Dextrose (Heparin/D5w 25,000 U/250 Ml) 25,000 unit in 250 mls @ 0 mls/hr IV.CONT TITRATE PRN; Protocol PRN Reason: Per Protocol Last Titration: 10/02/18 18:00 Dose: 9 units/hr, 0.09 mls/hr Insulin Aspart (Novolog Insulin Correctional Sugar Inj) [address] [facility]; Protocol Last Admin: 10/03/18 13:07 Dose: 4 unit Isosorbide Mononitrate (Imdur) [address] [facility] Last Admin: 09/30/18 12:01 Dose: Not Given Lactulose (Lactulose Liq) 30 ml PO DAILY PRN PRN Reason: SEVERE CONSITIPATION Morphine Sulfate (Morphine Inj) 2 mg IV.PUSH Q4H PRN PRN Reason: Acute Pain 1-10 Last Admin: 10/03/18 13:08 Dose: 2 mg Multivitamins/Minerals (Theragran-M) [address] [facility] Last Admin: 10/03/18 08:20 Dose: 1 tab Mupirocin (Bactroban 2% Nasal Oint) 1 applicatio EACH NARE BID [facility] Last Admin: 10/03/18 08:20 Dose: 1 applicatio Ondansetron HCl (Zofran Inj) 4 mg IV.PUSH Q6H PRN PRN Reason: NAUSEA OR VOMITING Pantoprazole Sodium (Protonix Inj) [address] [facility] Last Admin: 10/03/18 08:18 Dose: 40 mg Phenylephrine HCl (Neosynephrine Inj) 0.1 mg IV.PUSH UNSCH PRN PRN Reason: SEE LABEL COMMENTS Polyethylene Glycol (Miralax) [address] [facility] Last Admin: 10/03/18 08:18 Dose: 17 gm Potassium Chloride (K-Dur) 20 meq PO UNSCH PRN PRN Reason: SEE LABEL COMMENTS Potassium Chloride (K-Dur) 40 meq PO UNSCH PRN PRN Reason: SEE LABEL COMMENTS Ranolazine (Ranexa) [address] [facility] Last Admin: 10/03/18 08:20 Dose: 500 mg Senna/Docusate Sodium (Jacqui-Colace) [address] [facility] Last Admin: 10/03/18 08:19 Dose: 1 tab Sennosides (Senokot) 17.2 mg PO Q12H PRN PRN Reason: Moderate Constipation Sennosides (Senokot) 8.[address] [facility] Last Admin: 10/02/18 20:06 Dose: Not Given Sertraline HCl (Zoloft) [address] [facility] Last Admin: 10/03/18 08:20 Dose: 50 mg Sodium Biphosphate/Sodium Phosphate (Fleets Enema (Adult)) 118 ml RECTAL UNSCH PRN PRN Reason: SEE LABEL COMMENTS Sodium Chloride (Ns Flush) [address] [facility] Last Admin: 10/03/18 08:18 Dose: 2 ml Sodium Chloride (Ns Flush) 2 ml IV.FLUSH PRN PRN PRN Reason: FLUSH AFTER USING IV ACCESS Temazepam (Restoril) 7.5 mg PO [facility] Last Admin: 10/02/18 20:06 Dose: Not Given <Stacey Brothers - Last Filed: 10/03/18 13:56> Active Medications: Active Medications Al Hydroxide/Mg Hydroxide (Milk Of Magnesia Liq) [address] [facility] Last Admin: 10/03/18 08:18 Dose: 30 ml Albuterol (Duoneb Neb (Prn)) 1 ampul NEB Q2HR NEB PRN PRN Reason: WHEEZING Albuterol (Duoneb Neb (Estelle)) 1 ampul NEB Q6HR WHILE AWAKE NEB [facility] Stop: 10/04/18 13:59 Last Admin: 10/03/18 19:47 Dose: 1 ampul Amiodarone HCl (Cordarone) [address] [facility] Last Admin: 10/02/18 20:05 Dose: 200 mg Aspirin (Aspirin Chew) [address] [facility] Last Admin: 10/03/18 08:20 Dose: 81 mg Atorvastatin Calcium (Lipitor) [address] [facility] Last Admin: 10/02/18 20:05 Dose: 20 mg Bisacodyl (Dulcolax Supp) 10 mg RECTAL PRN PRN PRN Reason: SEE LABEL COMMENTS Clopidogrel Bisulfate (Plavix) [address] [facility] Last Admin: 10/03/18 08:19 Dose: 75 mg Dextrose (D50w Vial) 50 ml IV.PUSH UNSCH PRN PRN Reason: PER HYPOGLYCEMIA PROTOCOL Docusate Sodium (Colace) [address] [facility] Last Admin: 10/03/18 21:11 Dose: 100 mg Glucagon (Glucagon Inj) 1 mg OTHER PRN PRN PRN Reason: For hypoglycemia Magnesium Sulfate 2 gm/ Sodium (Chloride) 100 mls @ 50 mls/hr IV.SIG PRN PRN PRN Reason: SEE LABEL COMMENTS Last Infusion: 10/01/18 12:00 Dose: Infused Magnesium Sulfate 2 gm/ Sodium (Chloride) 100 mls @ 50 mls/hr IV.SIG PRN PRN PRN Reason: SEE LABEL COMMENTS Phenylephrine HCl 40 mg/ (Sodium Chloride) 500 mls @ 30 mls/hr IV.CONT TITRATE PRN; Protocol PRN Reason: See Protocol Last Titration: 10/03/18 07:00 Dose: 0 mcg/min, 0 mls/hr Potassium Chloride (Kcl 20 Meq Premix Inj) 20 meq in 100 mls @ 50 mls/hr IV.SIG PRN PRN PRN Reason: SEE LABEL COMMENTS Last Infusion: 10/01/18 16:31 Dose: Infused Potassium Chloride (Kcl 20 Meq Premix Inj) 20 meq in 100 mls @ 50 mls/hr IV.SIG PRN PRN PRN Reason: SEE LABEL COMMENTS Potassium Chloride (Kcl 20 Meq Premix Inj) 20 meq in 100 mls @ 50 mls/hr IV.SIG PRN PRN PRN Reason: SEE LABEL COMMENTS Last Infusion: 09/30/18 01:35 Dose: Infused Heparin Sodium/Dextrose (Heparin/D5w 25,000 U/250 Ml) 25,000 unit in 250 mls @ 0 mls/hr IV.CONT TITRATE PRN; Protocol PRN Reason: Per Protocol Last Admin: 10/03/18 20:03 Dose: 9 units/hr, 0.09 mls/hr Insulin Aspart (Novolog Insulin Correctional Sugar Inj) 0 unit SQ ACHS [facility]; Protocol Last Admin: 10/03/18 21:16 Dose: 9 unit Isosorbide Mononitrate (Imdur) [address] [facility] Last Admin: 09/30/18 12:01 Dose: Not Given Lactulose (Lactulose Liq) 30 ml PO DAILY PRN PRN Reason: SEVERE CONSITIPATION Morphine Sulfate (Morphine Inj) 2 mg IV.PUSH Q4H PRN PRN Reason: Acute Pain 1-10 Last Admin: 10/03/18 20:03 Dose: 2 mg Multivitamins/Minerals (Theragran-M) [address] [facility] Last Admin: 10/03/18 08:20 Dose: 1 tab Mupirocin (Bactroban 2% Nasal Oint) 1 applicatio E[address] NARE BID [facility] Last Admin: 10/03/18 21:10 Dose: 1 applicatio Ondansetron HCl (Zofran Inj) 4 mg IV.PUSH Q6H PRN PRN Reason: NAUSEA OR VOMITING Pantoprazole Sodium (Protonix Inj) [address] [facility] Last Admin: 10/03/18 08:18 Dose: 40 mg Phenylephrine HCl (Neosynephrine Inj) 0.1 mg IV.PUSH UNSCH PRN PRN Reason: SEE LABEL COMMENTS Polyethylene Glycol (Miralax) [address] [facility] Last Admin: 10/03/18 08:18 Dose: 17 gm Potassium Chloride (K-Dur) 20 meq PO UNSCH PRN PRN Reason: SEE LABEL COMMENTS Potassium Chloride (K-Dur) 40 meq PO UNSCH PRN PRN Reason: SEE LABEL COMMENTS Ranolazine (Ranexa) [address] [facility] Last Admin: 10/03/18 21:10 Dose: 500 mg Senna/Docusate Sodium (Jacqui-Colace) [address] [facility] Last Admin: 10/03/18 21:12 Dose: 1 tab Sennosides (Senokot) 17.2 mg PO Q12H PRN PRN Reason: Moderate Constipation Sennosides (Senokot) 8.[address] [facility] Last Admin: 10/03/18 21:11 Dose: 8.6 mg Sertraline HCl (Zoloft) [address] [facility] Last Admin: 10/03/18 08:20 Dose: 50 mg Sodium Biphosphate/Sodium Phosphate (Fleets Enema (Adult)) 118 ml RECTAL UNSCH PRN PRN Reason: SEE LABEL COMMENTS Sodium Chloride (Ns Flush) [address] [facility] Last Admin: 10/03/18 21:10 Dose: 2 ml Sodium Chloride (Ns Flush) 2 ml IV.FLUSH PRN PRN PRN Reason: FLUSH AFTER USING IV ACCESS Temazepam (Restoril) 7.5 mg PO [facility] Last Admin: 10/03/18 21:15 Dose: Not Given <Js Lyons E - Last Filed: 10/03/18 22:34> Allergies Allergy/AdvReac Type Severity Reaction Status Date / Time metoprolol Allergy Severe HALLUCINATI Verified 09/23/18 22:25 ONS famotidine Allergy Unknown RASH Verified 09/23/18 22:25 lisinopril Allergy Unknown Itching Verified 09/23/18 22:25 insulin detemir AdvReac Unknown Diarrhea Verified 09/23/18 22:25 Home Medications Medication Instructions Recorded Confirmed Type aspirin [Aspir-81] 81 mg PO DAILY 08/03/18 09/24/18 History atorvastatin 20 mg PO DAILY 08/03/18 09/24/18 History insulin glargine [Lantus U-100 25 unit SUB-Q DAILY 08/03/18 09/24/18 History Insulin] insulin lispro [Humalog U-100 45 unit SUB-Q DAILY 08/03/18 09/24/18 History Insulin] isosorbide mononitrate 30 mg PO QAM 08/03/18 09/24/18 History methocarbamol 500 mg PO QID 08/03/18 09/24/18 History nitroglycerin 0.3 mg SUBLINGUAL Q5-15M PRN 08/03/18 09/24/18 History sertraline 50 mg PO DAILY 08/03/18 09/24/18 History temazepam 7.5 mg PO HS 08/03/18 09/24/18 History ticagrelor [Brilinta] 90 mg PO BID 08/03/18 09/24/18 History Exam Vital signs: Vital Signs 10/02/18 14:56 10/02/18 15:00 10/02/18 15:15 Temperature 97.5 F L Pulse Rate 73 76 Respiratory Rate 20 16 Blood Pressure 86/60 L Pulse Oximetry 96 96 10/02/18 15:41 10/02/18 19:00 10/02/18 20:00 Temperature 98.7 F Pulse Rate 76 76 78 Respiratory Rate 14 Blood Pressure 85/64 L Pulse Oximetry 94 L 10/02/18 21:08 10/02/18 22:07 10/02/18 23:00 Temperature 97.9 F Pulse Rate 79 76 Respiratory Rate 24 14 14 Blood Pressure 89/62 L Pulse Oximetry 94 L 94 L 10/03/18 00:46 10/03/18 01:01 10/03/18 01:03 Temperature 98.3 F 98.4 F 98.3 F Pulse Rate 78 75 75 Respiratory Rate 16 16 16 Blood Pressure 79/57 L 91/60 L 82/64 L Pulse Oximetry 95 95 96 10/03/18 03:08 10/03/18 03:13 10/03/18 03:15 Temperature 98.3 F 98.3 F Pulse Rate 74 74 Respiratory Rate 16 16 Blood Pressure 95/68 L 95/68 L Pulse Oximetry 94 L 94 L 10/03/18 03:19 10/03/18 04:00 10/03/18 04:03 Temperature 97.7 F Pulse Rate 74 73 Respiratory Rate 16 16 Blood Pressure 104/72 Pulse Oximetry 94 L 10/03/18 04:53 10/03/18 05:00 10/03/18 07:00 Temperature 98.6 F 98.1 F Pulse Rate 80 Respiratory Rate 14 Blood Pressure 91/60 L Pulse Oximetry 98 91 L 10/03/18 07:48 10/03/18 08:13 10/03/18 11:00 Temperature 96.5 F L Pulse Rate 74 76 Respiratory Rate 20 16 Blood Pressure 116/79 Pulse Oximetry 91 L 94 L 95 10/03/18 13:31 Temperature Pulse Rate Respiratory Rate 18 Blood Pressure Pulse Oximetry Intake & Output 10/02/18 10/03/1818 18:59 06:59 18:59 Intake Total 2322 / 2322 1570 / 1570 Output Total 195 / 195 245 / 245 Balance 2127 / 2127 1325 / 1325 Weight 84 kg Intake: IV 1656 / 1656 Heparin/D5W 25,000 U/250 mL 25, 232 / 232 000 unit In 250 ml @ Per Protocol IV.CONT TITRATE PRN Rx #:[id number] Neosynephrine Inj 40 MG In NS 74 / 74 Inj 496 ML @ 40 MCG/MIN 30 mls/ hr IV.CONT TITRATE PRN Rx#: [id number] Flexbumin 25% Inj 100 ML @ 60 100 / 100 mls/hr IV.SIG ONCE ONE Rx#: [id number] Buminate 5% Inj 250 ML @ 250 250 / 250 mls/hr IV.SIG ONCE ONE Rx#: [id number] LR 1000 mL Inj 500 ML @ 500 mls 1000 / 1000 /hr IV.SIG ONCE ONE Rx#: [id number] Oral 480 / 480 420 / 420 Other 186 / 186 350 / 350 Rbc As-3 Leukoreduced Unit 100 / 100 [id number] Rbc As-3 Leukoreduced Unit 250 / 250 [id number] Intake (Blood Product) Amt 800 / 800 Rbc As-3 Leukoreduced Unit 400 / 400 [id number] Rbc As-3 Leukoreduced Unit 400 / 400 [id number] Output: Urine Amount (Catheter) 185 / 185 235 / 235 Indwelling Temp Sensing 185 / 185 235 / 235 Catheter Chest Tube Drainage Pleural/Mediastinal Other: Other Intake Source Saline Solution Rbc As-3 Leukoreduced Unit Saline Solution [id number] Rbc As-3 Leukoreduced Unit Saline Solution [id number] - Constitutional chronically ill appearing, cooperative - Routine HEENT Exam Head: Present: normocephalic Eye: Present: conjunctival icterus - Routine Chest/Breast/Axilla Exam Comments: Midline thoracic incision covered with dressing Pleur-evac drain in place - Routine Respiratory Exam Absent: accessory muscle use, respiratory distress Comments: Patient currently wearing nonrebreather mask O2 saturation 95% Patient endorses shortness of breath on exertion - Routine Cardiovascular Exam Present: RRR - Routine Abdominal Exam Present: soft, normoactive bowel sounds. Absent: tenderness, guarding - Routine Extremities Exam Present: pulses intact. Absent: edema - Routine Skin Exam Present: dry, warm - Routine Neurological Exam Present: alert, oriented X3 <Brothers - Last Filed: 10/03/18 13:56> Vital signs: Vital Signs 10/02/18 23:00 10/03/18 00:46 10/03/18 01:01 Temperature 97.9 F 98.3 F 98.4 F Pulse Rate 76 78 75 Respiratory Rate 14 16 16 Blood Pressure 89/62 L 79/57 L 91/60 L Pulse Oximetry 94 L 95 95 10/03/18 01:03 10/03/18 03:08 10/03/18 03:13 Temperature 98.3 F 98.3 F Pulse Rate 75 74 Respiratory Rate 16 16 Blood Pressure 82/64 L 95/68 L Pulse Oximetry 96 94 L 10/03/18 03:15 10/03/18 03:19 10/03/18 04:00 Temperature 98.3 F 97.7 F Pulse Rate 74 74 Respiratory Rate 16 16 16 Blood Pressure 95/68 L 104/72 Pulse Oximetry 94 L 94 L 10/03/18 04:03 10/03/18 04:53 10/03/18 05:00 Temperature 98.6 F Pulse Rate 73 Respiratory Rate Blood Pressure Pulse Oximetry 98 10/03/18 07:00 10/03/18 07:48 10/03/18 08:13 Temperature 98.1 F Pulse Rate 80 74 Respiratory Rate 14 20 Blood Pressure 91/60 L Pulse Oximetry 91 L 91 L 94 L 10/03/18 11:00 10/03/18 13:31 10/03/18 14:36 Temperature 96.5 F L Pulse Rate 76 74 Respiratory Rate 16 18 18 Blood Pressure 116/79 Pulse Oximetry 95 10/03/18 15:00 10/03/18 19:52 10/03/18 20:05 Temperature Pulse Rate 75 76 Respiratory Rate 15 18 20 Blood Pressure 103/72 Pulse Oximetry 97 96 Intake & Output 10/03/18 10/03/18 10/04/18 06:59 18:59 06:59 Intake Total 1570 / 1570 1050 / 1050 151 / 151 Output Total 245 / 245 900 / 900 Balance 1325 / 1325 150 / 150 151 / 151 Weight 84 kg Intake: IV 151 / 151 Heparin/D5W 25,000 U/250 mL 25, 151 / 151 000 unit In 250 ml @ Per Protocol IV.CONT TITRATE PRN Rx #:[id number] Oral 420 / 420 1050 / 1050 Other 350 / 350 Rbc As-3 Leukoreduced Unit 100 / 100 [id number] Rbc As-3 Leukoreduced Unit 250 / 250 [id number] Intake (Blood Product) Amt 800 / 800 Rbc As-3 Leukoreduced Unit 400 / 400 [id number] Rbc As-3 Leukoreduced Unit 400 / 400 [id number] Output: Urine Amount (Catheter) 235 / 235 900 / 900 Indwelling Temp Sensing 235 / 235 900 / 900 Catheter Chest Tube Drainage Pleural/Mediastinal Other: Other Intake Source Rbc As-3 Leukoreduced Unit Saline Solution [id number] Rbc As-3 Leukoreduced Unit Saline Solution [id number] # Bowel Movements 0 <Js Lyons E - Last Filed: 10/03/18 22:34> Results - Labs CBC & Chem 7: 10/03/18 05:13 10/03/18 05:13 Labs: Laboratory Results - last 24 hr 09/29/18 09/30/18 09/30/18 19:25 12:45 12:45 WBC RBC Hgb Hct MCV MCH MCHC RDW Plt Count MPV Prelim Diff (Auto) Neut % (Auto) Lymph % (Auto) [place] % (Auto) Eos % (Auto) Baso % (Auto) Neut # (Auto) Lymph # (Auto) [place] # (Auto) Eos # (Auto) Baso # (Auto) WBC Differential Diff Scan Differential Comment Platelet Estimate Platelet Morphology APTT Puncture Site Patient Temperature O2 Saturation ABG pH ABG pCO2 ABG pO2 ABG HCO3 ABG O2 Content ABG Base Excess ABG Methemoglobin VBG pH VBG pCO2 VBG pO2 VBG HCO3 VBG O2 Saturation VBG O2 Content VBG Base Excess VBG Carboxyhemoglobin VBG Methemoglobin Hemoglobin Carboxyhemoglobin O2 Delivery Device Liter Flow Critical Value Sodium Potassium Chloride Carbon Dioxide Anion Gap BUN Creatinine Estimated GFR POC Glucose Random Glucose Lactic Acid Calcium Phosphorus Magnesium Total Bilirubin Direct Bilirubin Indirect Bilirubin AST ALT Alkaline Phosphatase Ammonia Total Protein Albumin Homocysteine Cardiovas 7.1 Urine Eosinophils Ur Random Creatinine Ur Random Sodium Beta-2-GPI IgG Ab Less than 9.0 Beta-2-GPI IgA Ab Less than 9.0 Beta-2-GPI IgM Ab Less than 9.0 Heparin Dep Plt Ab OD 0.428 Hep-Induced Plt Ab Sparkle Negative Anti-Cardiolipin IgG Ab Less than 14.0 Anti-Cardiolipin IgA Ab Less than 11.0 Anti-Cardiolipin IgM Ab Less than 12.0 Blood Type Blood Type Recheck Antibody Screen MTS Gel Crossmatch 10/02/18 10/02/18 10/02/18 15:45 16:17 16:17 WBC RBC Hgb Hct MCV MCH MCHC RDW Plt Count MPV Prelim Diff (Auto) Neut % (Auto) Lymph % (Auto) [place] % (Auto) Eos % (Auto) Baso % (Auto) Neut # (Auto) Lymph # (Auto) [place] # (Auto) Eos # (Auto) Baso # (Auto) WBC Differential Diff Scan Differential Comment Platelet Estimate Platelet Morphology APTT Puncture Site Central line Patient Temperature 98.6 O2 Saturation ABG pH ABG pCO2 ABG pO2 ABG HCO3 ABG O2 Content ABG Base Excess ABG Methemoglobin VBG pH 7.39 VBG pCO2 34 L VBG pO2 24 L* VBG HCO3 20 L VBG O2 Saturation 34 L VBG O2 Content 3.8 L VBG Base Excess -3.7 L VBG Carboxyhemoglobin 0.9 VBG Methemoglobin 1.7 Hemoglobin 8.0 L Carboxyhemoglobin O2 Delivery Device Nasal cannula Liter Flow 3.00 Critical Value Yes Sodium 140 Potassium 4.3 Chloride 109 H Carbon Dioxide 19.0 L Anion Gap 12 BUN 23 H Creatinine 1.02 H Estimated GFR 68 L POC Glucose Random Glucose 165 H Lactic Acid 1.6 Calcium 7.7 L Phosphorus Magnesium Total Bilirubin Direct Bilirubin Indirect Bilirubin AST ALT Alkaline Phosphatase Ammonia Total Protein Albumin Homocysteine Cardiovas Urine Eosinophils Ur Random Creatinine Ur Random Sodium Beta-2-GPI IgG Ab Beta-2-GPI IgA Ab Beta-2-GPI IgM Ab Heparin Dep Plt Ab OD Hep-Induced Plt Ab Sparkle Anti-Cardiolipin IgG Ab Anti-Cardiolipin IgA Ab Anti-Cardiolipin IgM Ab Blood Type Blood Type Recheck Antibody Screen MTS Gel Crossmatch 10/02/18 10/02/18 10/02/18 17:02 17:45 17:45 WBC RBC Hgb Hct MCV MCH MCHC RDW Plt Count MPV Prelim Diff (Auto) Neut % (Auto) Lymph % (Auto) [place] % (Auto) Eos % (Auto) Baso % (Auto) Neut # (Auto) Lymph # (Auto) [place] # (Auto) Eos # (Auto) Baso # (Auto) WBC Differential Diff Scan Differential Comment Platelet Estimate Platelet Morphology APTT Puncture Site Patient Temperature O2 Saturation ABG pH ABG pCO2 ABG pO2 ABG HCO3 ABG O2 Content ABG Base Excess ABG Methemoglobin VBG pH VBG pCO2 VBG pO2 VBG HCO3 VBG O2 Saturation VBG O2 Content VBG Base Excess VBG Carboxyhemoglobin VBG Methemoglobin Hemoglobin Carboxyhemoglobin O2 Delivery Device Liter Flow Critical Value Sodium Potassium Chloride Carbon Dioxide Anion Gap BUN Creatinine Estimated GFR POC Glucose 165 H Random Glucose Lactic Acid Calcium Phosphorus Magnesium Total Bilirubin Direct Bilirubin Indirect Bilirubin AST ALT Alkaline Phosphatase Ammonia Total Protein Albumin Homocysteine Cardiovas Urine Eosinophils None seen Ur Random Creatinine 301 H Ur Random Sodium Less than 5 Beta-2-GPI IgG Ab Beta-2-GPI IgA Ab Beta-2-GPI IgM Ab Heparin Dep Plt Ab OD Hep-Induced Plt Ab Sparkle Anti-Cardiolipin IgG Ab Anti-Cardiolipin IgA Ab Anti-Cardiolipin IgM Ab Blood Type Blood Type Recheck Antibody Screen MTS Gel Crossmatch 10/02/18 10/02/18 10/02/18 21:27 22:07 22:07 WBC RBC Hgb Hct MCV MCH MCHC RDW Plt Count MPV Prelim Diff (Auto) Neut % (Auto) Lymph % (Auto) [place] % (Auto) Eos % (Auto) Baso % (Auto) Neut # (Auto) Lymph # (Auto) [place] # (Auto) Eos # (Auto) Baso # (Auto) WBC Differential Diff Scan Differential Comment Platelet Estimate Platelet Morphology APTT Puncture Site Patient Temperature O2 Saturation ABG pH ABG pCO2 ABG pO2 ABG HCO3 ABG O2 Content ABG Base Excess ABG Methemoglobin VBG pH VBG pCO2 VBG pO2 VBG HCO3 VBG O2 Saturation VBG O2 Content VBG Base Excess VBG Carboxyhemoglobin VBG Methemoglobin Hemoglobin Carboxyhemoglobin O2 Delivery Device Liter Flow Critical Value Sodium Potassium Chloride Carbon Dioxide Anion Gap BUN Creatinine Estimated GFR POC Glucose 159 H Random Glucose Lactic Acid 1.6 Calcium Phosphorus Magnesium Total Bilirubin Direct Bilirubin Indirect Bilirubin AST ALT Alkaline Phosphatase Ammonia 53 H Total Protein Albumin Homocysteine Cardiovas Urine Eosinophils Ur Random Creatinine Ur Random Sodium Beta-2-GPI IgG Ab Beta-2-GPI IgA Ab Beta-2-GPI IgM Ab Heparin Dep Plt Ab OD Hep-Induced Plt Ab Sparkle Anti-Cardiolipin IgG Ab Anti-Cardiolipin IgA Ab Anti-Cardiolipin IgM Ab Blood Type Blood Type Recheck Antibody Screen MTS Gel Crossmatch 10/02/18 10/02/18 10/03/18 22:07 23:17 01:50 WBC 7.8 RBC 2.46 L Hgb 7.4 L Hct 21.1 L MCV 85.6 MCH 30.1 MCHC 35.2 RDW 14.8 Plt Count 85 L MPV 8.9 Prelim Diff (Auto) Slide review pending Neut % (Auto) 66.6 Lymph % (Auto) 26.0 [place] % (Auto) 6.1 Eos % (Auto) 0.9 Baso % (Auto) 0.4 Neut # (Auto) 5.2 Lymph # (Auto) 2.0 [place]inn # (Auto) 0.5 Eos # (Auto) 0.1 Baso # (Auto) 0.0 WBC Differential . Diff Scan Auto diff confirmed Differential Comment . Platelet Estimate Low L Platelet Morphology Normal APTT Puncture Site Patient Temperature O2 Saturation ABG pH ABG pCO2 ABG pO2 ABG HCO3 ABG O2 Content ABG Base Excess ABG Methemoglobin VBG pH VBG pCO2 VBG pO2 VBG HCO3 VBG O2 Saturation VBG O2 Content VBG Base Excess VBG Carboxyhemoglobin VBG Methemoglobin Hemoglobin Carboxyhemoglobin O2 Delivery Device Liter Flow Critical Value Sodium Potassium Chloride Carbon Dioxide Anion Gap BUN Creatinine Estimated GFR POC Glucose 110 Random Glucose Lactic Acid Calcium Phosphorus Magnesium Total Bilirubin Direct Bilirubin Indirect Bilirubin AST ALT Alkaline Phosphatase Ammonia Total Protein Albumin Homocysteine Cardiovas Urine Eosinophils Ur Random Creatinine Ur Random Sodium Beta-2-GPI IgG Ab Beta-2-GPI IgA Ab Beta-2-GPI IgM Ab Heparin Dep Plt Ab OD Hep-Induced Plt Ab Sparkle Anti-Cardiolipin IgG Ab Anti-Cardiolipin IgA Ab Anti-Cardiolipin IgM Ab Blood Type B Positive Blood Type Recheck Not needed Antibody Screen Negative MTS Gel Crossmatch See Detail 10/03/18 10/03/18 10/03/18 05:13 05:13 05:13 WBC 7.5 RBC 3.34 L Hgb 10.0 L D Hct 28.7 L MCV 85.9 MCH 30.0 MCHC 34.9 RDW 15.0 Plt Count 75 L MPV 8.7 Prelim Diff (Auto) Neut % (Auto) Lymph % (Auto) [place] % (Auto) Eos % (Auto) Baso % (Auto) Neut # (Auto) Lymph # (Auto) [place] # (Auto) Eos # (Auto) Baso # (Auto) WBC Differential Diff Scan Differential Comment Platelet Estimate Platelet Morphology APTT Puncture Site Patient Temperature O2 Saturation ABG pH ABG pCO2 ABG pO2 ABG HCO3 ABG O2 Content ABG Base Excess ABG Methemoglobin VBG pH VBG pCO2 VBG pO2 VBG HCO3 VBG O2 Saturation VBG O2 Content VBG Base Excess VBG Carboxyhemoglobin VBG Methemoglobin Hemoglobin Carboxyhemoglobin O2 Delivery Device Liter Flow Critical Value Sodium 139 Potassium 4.1 Chloride 109 H Carbon Dioxide 17.9 L Anion Gap 12 BUN 29 H Creatinine 1.08 H Estimated GFR POC Glucose Random Glucose 114 H Lactic Acid 1.2 Calcium 7.6 L Phosphorus 3.7 Magnesium 2.5 Total Bilirubin 1.2 H Direct Bilirubin 0.7 H Indirect Bilirubin 0.5 AST 1157 H ALT 1006 H Alkaline Phosphatase 101 Ammonia Total Protein 6.1 L Albumin 3.1 L Homocysteine Cardiovas Urine Eosinophils Ur Random Creatinine Ur Random Sodium Beta-2-GPI IgG Ab Beta-2-GPI IgA Ab Beta-2-GPI IgM Ab Heparin Dep Plt Ab OD Hep-Induced Plt Ab Sparkle Anti-Cardiolipin IgG Ab Anti-Cardiolipin IgA Ab Anti-Cardiolipin IgM Ab Blood Type Blood Type Recheck Antibody Screen MTS Gel Crossmatch 10/03/18 10/03/18 10/03/18 05:13 08:22 09:38 WBC RBC Hgb Hct MCV MCH MCHC RDW Plt Count MPV Prelim Diff (Auto) Neut % (Auto) Lymph % (Auto) [place] % (Auto) Eos % (Auto) Baso % (Auto) Neut # (Auto) Lymph # (Auto) [place] # (Auto) Eos # (Auto) Baso # (Auto) WBC Differential Diff Scan Differential Comment Platelet Estimate Platelet Morphology APTT 52.7 H Puncture Site Negrita Patient Temperature 98.6 O2 Saturation 93 ABG pH 7.39 ABG pCO2 29 L ABG pO2 78 ABG HCO3 17 L ABG O2 Content 20.2 H ABG Base Excess -7.0 L ABG Methemoglobin 1.4 VBG pH VBG pCO2 VBG pO2 VBG HCO3 VBG O2 Saturation VBG O2 Content VBG Base Excess VBG Carboxyhemoglobin VBG Methemoglobin Hemoglobin 15.5 Carboxyhemoglobin 0.9 O2 Delivery Device Nonrebreather Liter Flow 15.00 Critical Value No Sodium Potassium Chloride Carbon Dioxide Anion Gap BUN Creatinine Estimated GFR POC Glucose 150 H Random Glucose Lactic Acid Calcium Phosphorus Magnesium Total Bilirubin Direct Bilirubin Indirect Bilirubin AST ALT Alkaline Phosphatase Ammonia Total Protein Albumin Homocysteine Cardiovas Urine Eosinophils Ur Random Creatinine Ur Random Sodium Beta-2-GPI IgG Ab Beta-2-GPI IgA Ab Beta-2-GPI IgM Ab Heparin Dep Plt Ab OD Hep-Induced Plt Ab Sparkle Anti-Cardiolipin IgG Ab Anti-Cardiolipin IgA Ab Anti-Cardiolipin IgM Ab Blood Type Blood Type Recheck Antibody Screen MTS Gel Crossmatch 10/03/18 10/03/18 12:45 12:47 WBC RBC Hgb Hct MCV MCH MCHC RDW Plt Count MPV Prelim Diff (Auto) Neut % (Auto) Lymph % (Auto) [place] % (Auto) Eos % (Auto) Baso % (Auto) Neut # (Auto) Lymph # (Auto) [place] # (Auto) Eos # (Auto) Baso # (Auto) WBC Differential Diff Scan Differential Comment Platelet Estimate Platelet Morphology APTT Puncture Site Patient Temperature O2 Saturation ABG pH ABG pCO2 ABG pO2 ABG HCO3 ABG O2 Content ABG Base Excess ABG Methemoglobin VBG pH VBG pCO2 VBG pO2 VBG HCO3 VBG O2 Saturation VBG O2 Content VBG Base Excess VBG Carboxyhemoglobin VBG Methemoglobin Hemoglobin Carboxyhemoglobin O2 Delivery Device Liter Flow Critical Value Sodium Potassium Chloride Carbon Dioxide Anion Gap BUN Creatinine Estimated GFR POC Glucose 124 H Random Glucose Lactic Acid 1.3 Calcium Phosphorus Magnesium Total Bilirubin Direct Bilirubin Indirect Bilirubin AST ALT Alkaline Phosphatase Ammonia Total Protein Albumin Homocysteine Cardiovas Urine Eosinophils Ur Random Creatinine Ur Random Sodium Beta-2-GPI IgG Ab Beta-2-GPI IgA Ab Beta-2-GPI IgM Ab Heparin Dep Plt Ab OD Hep-Induced Plt Ab Sparkle Anti-Cardiolipin IgG Ab Anti-Cardiolipin IgA Ab Anti-Cardiolipin IgM Ab Blood Type Blood Type Recheck Antibody Screen MTS Gel Crossmatch - Imaging Impressions Abdomen/Bladder Ultrasound 10/02/18 00:00 CONCLUSION: 1. Increased echogenicity of the kidneys characteristic of medical renal disease. No hydronephrosis. No perinephric fluid. Barba catheter in bladder, decompressed. Chest X-Ray 10/03/18 06:00 CONCLUSION: 1. Endotracheal tube and nasogastric tube no longer seen. 2. Patchy left lung base atelectasis versus consolidation and mild diffuse hazy bilateral lung opacity. <Stacey Brothers - Last Filed: 10/03/18 13:56> - Labs CBC & Chem 7: 10/03/18 05:13 10/03/18 18:45 Labs: Laboratory Results - last 24 hr 09/29/18 09/30/18 09/30/18 19:25 12:45 12:45 WBC RBC Hgb Hct MCV MCH MCHC RDW Plt Count MPV WBC Differential Diff Scan Platelet Estimate Platelet Morphology APTT Thrombin Time 77 H Lupus Anticoagulant Lupus Anticoag aPTT 78.0 H Dil Christiano Viper Venom 31.0 dRVVT Confirm Interp ND dRVVT Mix Pat/Norm 1:1 ND dRVVT Mix Interpret ND Hexagonal Phase Confirm Weakly positive A Protein C Antigen 79 Protein C Activity 105 Protein S Activity 89 Free Protein S Antigen 88 Factor V Leiden Mutat Negative Factor V Leiden Interp . Fact V Leiden Review By See below Puncture Site Patient Temperature O2 Saturation ABG pH ABG pCO2 ABG pO2 ABG HCO3 ABG O2 Content ABG Base Excess ABG Methemoglobin Hemoglobin Carboxyhemoglobin O2 Delivery Device Liter Flow Critical Value Sodium Potassium Chloride Carbon Dioxide Anion Gap BUN Creatinine Estimated GFR POC Glucose Random Glucose Lactic Acid Calcium Phosphorus Magnesium Total Bilirubin Direct Bilirubin Indirect Bilirubin AST ALT Alkaline Phosphatase Ammonia Total Protein Albumin Homocysteine Cardiovas 7.1 Beta-2-GPI IgG Ab Less than 9.0 Beta-2-GPI IgA Ab Less than 9.0 Beta-2-GPI IgM Ab Less than 9.0 Heparin Dep Plt Ab OD 0.428 Hep-Induced Plt Ab Sparkle Negative Anti-Cardiolipin IgG Ab Less than 14.0 Anti-Cardiolipin IgA Ab Less than 11.0 Anti-Cardiolipin IgM Ab Less than 12.0 Prothrombin [id number] Mut Blood Type Blood Type Recheck Antibody Screen MTS Gel Crossmatch 10/02/18 10/02/18 10/02/18 22:07 22:07 22:07 WBC RBC Hgb Hct MCV MCH MCHC RDW Plt Count MPV WBC Differential . Diff Scan Auto diff confirmed Platelet Estimate Low L Platelet Morphology Normal APTT Thrombin Time Lupus Anticoagulant Lupus Anticoag aPTT Dil Christiano Viper Venom dRVVT Confirm Interp dRVVT Mix Pat/Norm 1:1 dRVVT Mix Interpret Hexagonal Phase Confirm Protein C Antigen Protein C Activity Protein S Activity Free Protein S Antigen Factor V Leiden Mutat Factor V Leiden Interp Fact V Leiden Review By Puncture Site Patient Temperature O2 Saturation ABG pH ABG pCO2 ABG pO2 ABG HCO3 ABG O2 Content ABG Base Excess ABG Methemoglobin Hemoglobin Carboxyhemoglobin O2 Delivery Device Liter Flow Critical Value Sodium Potassium Chloride Carbon Dioxide Anion Gap BUN Creatinine Estimated GFR POC Glucose Random Glucose Lactic Acid 1.6 Calcium Phosphorus Magnesium Total Bilirubin Direct Bilirubin Indirect Bilirubin AST ALT Alkaline Phosphatase Ammonia 53 H Total Protein Albumin Homocysteine Cardiovas Beta-2-GPI IgG Ab Beta-2-GPI IgA Ab Beta-2-GPI IgM Ab Heparin Dep Plt Ab OD Hep-Induced Plt Ab Sparkle Anti-Cardiolipin IgG Ab Anti-Cardiolipin IgA Ab Anti-Cardiolipin IgM Ab Prothrombin [id number] Mut Blood Type Blood Type Recheck Antibody Screen MTS Gel Crossmatch 10/02/18 10/03/18 10/03/18 23:17 01:50 05:13 WBC RBC Hgb Hct MCV MCH MCHC RDW Plt Count MPV WBC Differential Diff Scan Platelet Estimate Platelet Morphology APTT Thrombin Time Lupus Anticoagulant Lupus Anticoag aPTT Dil Christiano Viper Venom dRVVT Confirm Interp dRVVT Mix Pat/Norm 1:1 dRVVT Mix Interpret Hexagonal Phase Confirm Protein C Antigen Protein C Activity Protein S Activity Free Protein S Antigen Factor V Leiden Mutat Factor V Leiden Interp Fact V Leiden Review By Puncture Site Patient Temperature O2 Saturation ABG pH ABG pCO2 ABG pO2 ABG HCO3 ABG O2 Content ABG Base Excess ABG Methemoglobin Hemoglobin Carboxyhemoglobin O2 Delivery Device Liter Flow Critical Value Sodium Potassium Chloride Carbon Dioxide Anion Gap BUN Creatinine Estimated GFR POC Glucose 110 Random Glucose Lactic Acid 1.2 Calcium Phosphorus Magnesium Total Bilirubin Direct Bilirubin Indirect Bilirubin AST ALT Alkaline Phosphatase Ammonia Total Protein Albumin Homocysteine Cardiovas Beta-2-GPI IgG Ab Beta-2-GPI IgA Ab Beta-2-GPI IgM Ab Heparin Dep Plt Ab OD Hep-Induced Plt Ab Sparkle Anti-Cardiolipin IgG Ab Anti-Cardiolipin IgA Ab Anti-Cardiolipin IgM Ab Prothrombin [id number] Mut Blood Type B Positive Blood Type Recheck Not needed Antibody Screen Negative MTS Gel Crossmatch See Detail 10/03/18 10/03/18 10/03/18 05:13 05:13 05:13 WBC 7.5 RBC 3.34 L Hgb 10.0 L D Hct 28.7 L MCV 85.9 MCH 30.0 MCHC 34.9 RDW 15.0 Plt Count 75 L MPV 8.7 WBC Differential Diff Scan Platelet Estimate Platelet Morphology APTT 52.7 H Thrombin Time Lupus Anticoagulant Lupus Anticoag aPTT Dil Christiano Viper Venom dRVVT Confirm Interp dRVVT Mix Pat/Norm 1:1 dRVVT Mix Interpret Hexagonal Phase Confirm Protein C Antigen Protein C Activity Protein S Activity Free Protein S Antigen Factor V Leiden Mutat Factor V Leiden Interp Fact V Leiden Review By Puncture Site Patient Temperature O2 Saturation ABG pH ABG pCO2 ABG pO2 ABG HCO3 ABG O2 Content ABG Base Excess ABG Methemoglobin Hemoglobin Carboxyhemoglobin O2 Delivery Device Liter Flow Critical Value Sodium 139 Potassium 4.1 Chloride 109 H Carbon Dioxide 17.9 L Anion Gap 12 BUN 29 H Creatinine 1.08 H Estimated GFR POC Glucose Random Glucose 114 H Lactic Acid Calcium 7.6 L Phosphorus 3.7 Magnesium 2.5 Total Bilirubin 1.2 H Direct Bilirubin 0.7 H Indirect Bilirubin 0.5 AST 1157 H ALT 1006 H Alkaline Phosphatase 101 Ammonia Total Protein 6.1 L Albumin 3.1 L Homocysteine Cardiovas Beta-2-GPI IgG Ab Beta-2-GPI IgA Ab Beta-2-GPI IgM Ab Heparin Dep Plt Ab OD Hep-Induced Plt Ab Sparkle Anti-Cardiolipin IgG Ab Anti-Cardiolipin IgA Ab Anti-Cardiolipin IgM Ab Prothrombin [id number] Mut Blood Type Blood Type Recheck Antibody Screen MTS Gel Crossmatch 10/03/18 10/03/18 10/03/18 08:22 09:38 12:45 WBC RBC Hgb Hct MCV MCH MCHC RDW Plt Count MPV WBC Differential Diff Scan Platelet Estimate Platelet Morphology APTT Thrombin Time Lupus Anticoagulant Lupus Anticoag aPTT Dil Christiano Viper Venom dRVVT Confirm Interp dRVVT Mix Pat/Norm 1:1 dRVVT Mix Interpret Hexagonal Phase Confirm Protein C Antigen Protein C Activity Protein S Activity Free Protein S Antigen Factor V Leiden Mutat Factor V Leiden Interp Fact V Leiden Review By Puncture Site Negrita Patient Temperature 98.6 O2 Saturation 93 ABG pH 7.39 ABG pCO2 29 L ABG pO2 78 ABG HCO3 17 L ABG O2 Content 20.2 H ABG Base Excess -7.0 L ABG Methemoglobin 1.4 Hemoglobin 15.5 Carboxyhemoglobin 0.9 O2 Delivery Device Nonrebreather Liter Flow 15.00 Critical Value No Sodium Potassium Chloride Carbon Dioxide Anion Gap BUN Creatinine Estimated GFR POC Glucose 150 H Random Glucose Lactic Acid 1.3 Calcium Phosphorus Magnesium Total Bilirubin Direct Bilirubin Indirect Bilirubin AST ALT Alkaline Phosphatase Ammonia Total Protein Albumin Homocysteine Cardiovas Beta-2-GPI IgG Ab Beta-2-GPI IgA Ab Beta-2-GPI IgM Ab Heparin Dep Plt Ab OD Hep-Induced Plt Ab Sparkle Anti-Cardiolipin IgG Ab Anti-Cardiolipin IgA Ab Anti-Cardiolipin IgM Ab Prothrombin [id number] Mut Blood Type Blood Type Recheck Antibody Screen MTS Gel Crossmatch 10/03/18 10/03/18 10/03/18 12:47 17:15 18:45 WBC RBC Hgb Hct MCV MCH MCHC RDW Plt Count MPV WBC Differential Diff Scan Platelet Estimate Platelet Morphology APTT Thrombin Time Lupus Anticoagulant Lupus Anticoag aPTT Dil Christiano Viper Venom dRVVT Confirm Interp dRVVT Mix Pat/Norm 1:1 dRVVT Mix Interpret Hexagonal Phase Confirm Protein C Antigen Protein C Activity Protein S Activity Free Protein S Antigen Factor V Leiden Mutat Factor V Leiden Interp Fact V Leiden Review By Puncture Site Patient Temperature O2 Saturation ABG pH ABG pCO2 ABG pO2 ABG HCO3 ABG O2 Content ABG Base Excess ABG Methemoglobin Hemoglobin Carboxyhemoglobin O2 Delivery Device Liter Flow Critical Value Sodium 137 Potassium 4.6 Chloride 108 H Carbon Dioxide 18.2 L Anion Gap 11 BUN 32 H Creatinine 1.13 H Estimated GFR 60 L POC Glucose 124 H 161 H Random Glucose 189 H Lactic Acid Calcium 7.7 L Phosphorus Magnesium Total Bilirubin 1.3 H Direct Bilirubin Indirect Bilirubin AST 531 H ALT 841 H Alkaline Phosphatase 123 H Ammonia Total Protein 6.2 L Albumin 3.0 L Homocysteine Cardiovas Beta-2-GPI IgG Ab Beta-2-GPI IgA Ab Beta-2-GPI IgM Ab Heparin Dep Plt Ab OD Hep-Induced Plt Ab Sparkle Anti-Cardiolipin IgG Ab Anti-Cardiolipin IgA Ab Anti-Cardiolipin IgM Ab Prothrombin [id number] Mut Blood Type Blood Type Recheck Antibody Screen MTS Gel Crossmatch 10/03/18 21:14 WBC RBC Hgb Hct MCV MCH MCHC RDW Plt Count MPV WBC Differential Diff Scan Platelet Estimate Platelet Morphology APTT Thrombin Time Lupus Anticoagulant Lupus Anticoag aPTT Dil Christiano Viper Venom dRVVT Confirm Interp dRVVT Mix Pat/Norm 1:1 dRVVT Mix Interpret Hexagonal Phase Confirm Protein C Antigen Protein C Activity Protein S Activity Free Protein S Antigen Factor V Leiden Mutat Factor V Leiden Interp Fact V Leiden Review By Puncture Site Patient Temperature O2 Saturation ABG pH ABG pCO2 ABG pO2 ABG HCO3 ABG O2 Content ABG Base Excess ABG Methemoglobin Hemoglobin Carboxyhemoglobin O2 Delivery Device Liter Flow Critical Value Sodium Potassium Chloride Carbon Dioxide Anion Gap BUN Creatinine Estimated GFR POC Glucose 185 H Random Glucose Lactic Acid Calcium Phosphorus Magnesium Total Bilirubin Direct Bilirubin Indirect Bilirubin AST ALT Alkaline Phosphatase Ammonia Total Protein Albumin Homocysteine Cardiovas Beta-2-GPI IgG Ab Beta-2-GPI IgA Ab Beta-2-GPI IgM Ab Heparin Dep Plt Ab OD Hep-Induced Plt Ab Sparkle Anti-Cardiolipin IgG Ab Anti-Cardiolipin IgA Ab Anti-Cardiolipin IgM Ab Prothrombin [id number] Mut Blood Type Blood Type Recheck Antibody Screen MTS Gel Crossmatch - Imaging Impressions Chest X-Ray 10/03/18 06:00 CONCLUSION: 1. Endotracheal tube and nasogastric tube no longer seen. 2. Patchy left lung base atelectasis versus consolidation and mild diffuse hazy bilateral lung opacity. <Js Lyons - Last Filed: 10/03/18 22:34> Assessment and Plan (1) Elevated LFTs Status: Acute Code(s): R94.5 - Abnormal results of liver function studies - Plan This patient is a 58-year-old female with a past medical history significant for coronary artery disease and diabetes mellitus. Patient presented to the emergency room at [facility] [place] on 09/24/2018 with complaint of chest pain for 1 week. 09/29/2018 patient underwent coronary artery bypass grafting x 4. Patient presently on heparin drip and aspirin. Patient extubated on nonrebreather mask sinus rhythm in the 70s BP 122/70 saturation 95-96%. Our service has been consulted to evaluate patient's elevated liver enzymes. Total bilirubin 0.5 AST 1157 ALT 1006 alk phos 101 ammonia 53. Upon consultation patient reports surgical history significant for hysterectomy , carpal tunnel surgery and right shoulder surgery. Patient denies any nausea or vomiting or diarrhea. She denies any known family history for gastrointestinal disorders. States last EGD was 10 years ago where she was tested positive for H. pylori. Patient denies ever having had a colonoscopy in the past. She reports having 1 daily BM that is soft and brown without any noted bleeding. Elevated liver enzymes 10/03/2018 total bilirubin 1.2 direct bilirubin 0.7 and direct 0.5 AST 1157 ALT 1006 alk phos 101 Hemoglobin 10.0 hematocrit 28.7. 10/01/2018 liver ultrasound revealed the following findings: 1. Mild hepatomegaly and steatosis suspected. 2. Gallbladder wall thickening with pericholecystic fluid. In the appropriate clinical setting acalculous cholecystitis may have this appearance. Plan -Liquid diet as tolerated -HIDA scan when patient stable -IR consulted to evaluate patient-possible cholecystostomy tube placement -Monitor liver function studies -Agree with the discontinuation of amiodarone, Tylenol and atorvastatin -Continue PPI -IV hydration -Supportive care -Further recommendations to follow This patient has been seen by myself and Dr. Lyons and this note is written on his behalf - Attending Attestation Dr. Lyons <Stacey Brothers - Last Filed: 10/03/18 13:56> (1) Elevated LFTs Status: Acute Code(s): R94.5 - Abnormal results of liver function studies - Plan Patient seen and examined Agree with above Continue with current supportive care Monitor labs Elevated liver function tests probably multifactorial possibly secondary to medication versus infection versus cholecystitis versus other <Js Lyons - Last Filed: 10/03/18 22:34>
--- NOTE | 2018-10-03 16:10 | P.DIET ---
Nutritional Evaluation Type of nutrition evaluation: follow-up Nutrition consult regarding: Diet Evaluation Nutrition screening: Poor PO Intake Screening comments: 10/02 MDC for poor PO intake Objective - Diagnosis Unstable Angina - Objective Body Mass Index: 33.9 % IBW: 164 (IBW = 110lb) Body Weight Used for Calculations: IBW Energy Needs - Lower Range (kCal/kg): 25 Energy Needs - Upper Range (kCal/kg): 30 Lower Limit kCal/kg (kCals): 1,250 Upper Limit kCal/kg (kCals): 1,500 Lower Limit Protein Factor (Grams per Kg): 1.1 Upper Limit Protein Factor (Grams per Kg): 1.3 Lower Protein Needs (Protein): 55 Upper Protein Needs (Protein): 65 Dietitian Reviewed in Medical Record: Current diet, Curent medications, Intake & Output, Labs, Medical history Diet Order: Full liquid diet Oral Diet Intake Amount: Poor <50% Objective Comments: PMH: CKD, CAD, DM, GA Labs: BUN 29, Cr 1.08, POC glucose 124, Ca+ 7.6 Assessment Assessment: MDC for poor PO intake received on 10/02. Pt currently on full liquid diet, consumed around 25% of breakfast today (10/03). Pt was eating 100% of most meals prior to being NPO (before 09/28).ST recs noted, pt recommended for full liquids d/t refusing john cracker during swallow eval. Diet advancement pending per ST recs. RD to recommend Glucerna BID for PO supplement. Labs reviewed, dietitian following. Recommendations: 1. RD to recommend Glucerna BID for PO supplement 2. Diet advancement pending per ST recs 3. Dietitian following Dietitian to Monitor: Lab values, Supplement acceptance, Intake & Output, Diet tolerance, Weight change, PO Intake, Diet advancement, Medical course
[2018-10-03 17:03] LABS: Factor V Leiden Mutation Negative (Negative); Protein C Antigen 79 % (70-150); Protein C Functional 105 % (70 - 150); Protein S Antigen Free 88 % (65 - 160)
[2018-10-03 19:26] LABS: Anion Gap 11 meq/L (5-15); Aspartate Aminotransferase 531 U/L (15-37); Blood Urea Nitrogen 32 mg/dL (7-18); Calcium 7.7 mg/dL (8.5-10.1); Carbon Dioxide 18.2 meq/L (21.0-32.0); Chloride 108 meq/L (98-107); Glomerular Filtration Rate 60 mL/min (>89); Glucose,Random 189 mg/dL (74-106); Potassium 4.6 meq/L (3.5-5.1); Sodium 137 meq/L (136-145)
[2018-10-03 19:27] LABS: Alanine Aminotransferase 841 U/L (10-53)
[2018-10-03 19:29] LABS: Alkaline Phosphatase 123 U/L (45-117); Total Protein 6.2 g/dL (6.4-8.2)
[2018-10-03] MEDS: Heparin Drip 25,000 UNIT/250 ML BAG IV.CONT PRN (20:03)
--- NOTE | 2018-10-03 22:01 | P.PNCA ---
Subjective Interval history: Sitting up in the chair Lethargic Currently on non-rebreather Medications and Allergies Active Medications: Active Medications Al Hydroxide/Mg Hydroxide (Milk Of [place] Liq) 30 ml PO DAILY [facility] Last Admin: 10/03/18 08:18 Dose: 30 ml Albuterol (Duoneb Neb (Prn)) 1 ampul NEB Q2HR NEB PRN PRN Reason: WHEEZING Albuterol (Duoneb Neb (Estelle)) 1 ampul NEB Q6HR WHILE AWAKE NEB [facility] Stop: 10/04/18 13:59 Last Admin: 10/03/18 19:47 Dose: 1 ampul Amiodarone HCl (Cordarone) 200 mg PO Q12HR [facility] Last Admin: 10/02/18 20:05 Dose: 200 mg Aspirin (Aspirin Chew) 81 mg PO DAILY [facility] Last Admin: 10/03/18 08:20 Dose: 81 mg Atorvastatin Calcium (Lipitor) 20 mg PO HS [facility] Last Admin: 10/02/18 20:05 Dose: 20 mg Bisacodyl (Dulcolax Supp) 10 mg RECTAL PRN PRN PRN Reason: SEE LABEL COMMENTS Clopidogrel Bisulfate (Plavix) 75 mg PO DAILY [facility] Last Admin: 10/03/18 08:19 Dose: 75 mg Dextrose (D50w Vial) 50 ml IV.PUSH UNSCH PRN PRN Reason: PER HYPOGLYCEMIA PROTOCOL Docusate Sodium (Colace) 100 mg PO BID [facility] Last Admin: 10/03/18 21:11 Dose: 100 mg Glucagon (Glucagon Inj) 1 mg OTHER PRN PRN PRN Reason: For hypoglycemia Magnesium Sulfate 2 gm/ Sodium (Chloride) 100 mls @ 50 mls/hr IV.SIG PRN PRN PRN Reason: SEE LABEL COMMENTS Last Infusion: 10/01/18 12:00 Dose: Infused Magnesium Sulfate 2 gm/ Sodium (Chloride) 100 mls @ 50 mls/hr IV.SIG PRN PRN PRN Reason: SEE LABEL COMMENTS Phenylephrine HCl 40 mg/ (Sodium Chloride) 500 mls @ 30 mls/hr IV.CONT TITRATE PRN; Protocol PRN Reason: See Protocol Last Titration: 10/03/18 07:00 Dose: 0 mcg/min, 0 mls/hr Potassium Chloride (Kcl 20 Meq Premix Inj) 20 meq in 100 mls @ 50 mls/hr IV.SIG PRN PRN PRN Reason: SEE LABEL COMMENTS Last Infusion: 10/01/18 16:31 Dose: Infused Potassium Chloride (Kcl 20 Meq Premix Inj) 20 meq in 100 mls @ 50 mls/hr IV.SIG PRN PRN PRN Reason: SEE LABEL COMMENTS Potassium Chloride (Kcl 20 Meq Premix Inj) 20 meq in 100 mls @ 50 mls/hr IV.SIG PRN PRN PRN Reason: SEE LABEL COMMENTS Last Infusion: 09/30/18 01:35 Dose: Infused Heparin Sodium/Dextrose (Heparin/D5w 25,000 U/250 Ml) 25,000 unit in 250 mls @ 0 mls/hr IV.CONT TITRATE PRN; Protocol PRN Reason: Per Protocol Last Admin: 10/03/18 20:03 Dose: 9 units/hr, 0.09 mls/hr Insulin Aspart (Novolog Insulin Correctional Sugar Inj) 0 unit SQ ACHS [facility]; Protocol Last Admin: 10/03/18 21:16 Dose: 9 unit Isosorbide Mononitrate (Imdur) 30 mg PO DAILY [facility] Last Admin: 09/30/18 12:01 Dose: Not Given Lactulose (Lactulose Liq) 30 ml PO DAILY PRN PRN Reason: SEVERE CONSITIPATION Morphine Sulfate (Morphine Inj) 2 mg IV.PUSH Q4H PRN PRN Reason: Acute Pain 1-10 Last Admin: 10/03/18 20:03 Dose: 2 mg Multivitamins/Minerals (Theragran-M) 1 tab PO DAILY [facility] Last Admin: 10/03/18 08:20 Dose: 1 tab Mupirocin (Bactroban 2% Nasal Oint) 1 applicatio EACH NARE BID [facility] Last Admin: 10/03/18 21:10 Dose: 1 applicatio Ondansetron HCl (Zofran Inj) 4 mg IV.PUSH Q6H PRN PRN Reason: NAUSEA OR VOMITING Pantoprazole Sodium (Protonix Inj) 40 mg IV.PUSH DAILY [facility] Last Admin: 10/03/18 08:18 Dose: 40 mg Phenylephrine HCl (Neosynephrine Inj) 0.1 mg IV.PUSH UNSCH PRN PRN Reason: SEE LABEL COMMENTS Polyethylene Glycol (Miralax) 17 gm PO DAILY [facility] Last Admin: 10/03/18 08:18 Dose: 17 gm Potassium Chloride (K-Dur) 20 meq PO UNSCH PRN PRN Reason: SEE LABEL COMMENTS Potassium Chloride (K-Dur) 40 meq PO UNSCH PRN PRN Reason: SEE LABEL COMMENTS Ranolazine (Ranexa) 500 mg PO Q12H [facility] Last Admin: 10/03/18 21:10 Dose: 500 mg Senna/Docusate Sodium (Jacqui-Colace) 1 tab PO BID [facility] Last Admin: 10/03/18 21:12 Dose: 1 tab Sennosides (Senokot) 17.2 mg PO Q12H PRN PRN Reason: Moderate Constipation Sennosides (Senokot) 8.6 mg PO HS [facility] Last Admin: 10/03/18 21:11 Dose: 8.6 mg Sertraline HCl (Zoloft) 50 mg PO DAILY [facility] Last Admin: 10/03/18 08:20 Dose: 50 mg Sodium Biphosphate/Sodium Phosphate (Fleets Enema (Adult)) 118 ml RECTAL UNSCH PRN PRN Reason: SEE LABEL COMMENTS Sodium Chloride (Ns Flush) 2 ml IV.FLUSH BID [facility] Last Admin: 10/03/18 21:10 Dose: 2 ml Sodium Chloride (Ns Flush) 2 ml IV.FLUSH PRN PRN PRN Reason: FLUSH AFTER USING IV ACCESS Temazepam (Restoril) 7.5 mg PO [facility] Last Admin: 10/03/18 21:15 Dose: Not Given Allergies Allergy/AdvReac Type Severity Reaction Status Date / Time metoprolol Allergy Severe HALLUCINATI Verified 09/23/18 22:25 ONS famotidine Allergy Unknown RASH Verified 09/23/18 22:25 lisinopril Allergy Unknown Itching Verified 09/23/18 22:25 insulin detemir AdvReac Unknown Diarrhea Verified 09/23/18 22:25 Home Medications Medication Instructions Recorded Confirmed Type aspirin [Aspir-81] 81 mg PO DAILY 08/03/18 09/24/18 History atorvastatin 20 mg PO DAILY 08/03/18 09/24/18 History insulin glargine [Lantus U-100 25 unit SUB-Q DAILY 08/03/18 09/24/18 History Insulin] insulin lispro [Humalog U-100 45 unit SUB-Q DAILY 08/03/18 09/24/18 History Insulin] isosorbide mononitrate 30 mg PO QAM 08/03/18 09/24/18 History methocarbamol 500 mg PO QID 08/03/18 09/24/18 History nitroglycerin 0.3 mg SUBLINGUAL Q5-15M PRN 08/03/18 09/24/18 History sertraline 50 mg PO DAILY 08/03/18 09/24/18 History temazepam 7.5 mg PO HS 08/03/18 09/24/18 History ticagrelor [Brilinta] 90 mg PO BID 08/03/18 09/24/18 History Physical Exam Vital signs: Vital Signs 10/02/18 22:07 10/02/18 23:00 10/03/18 00:46 Temperature 97.9 F 98.3 F Pulse Rate 76 78 Respiratory Rate 14 14 16 Blood Pressure 89/62 L 79/57 L Pulse Oximetry 94 L 95 10/03/18 01:01 10/03/18 01:03 10/03/18 03:08 Temperature 98.4 F 98.3 F Pulse Rate 75 75 74 Respiratory Rate 16 16 16 Blood Pressure 91/60 L 82/64 L 95/68 L Pulse Oximetry 95 96 94 L 10/03/18 03:13 10/03/18 03:15 10/03/18 03:19 Temperature 98.3 F 98.3 F 97.7 F Pulse Rate 74 74 Respiratory Rate 16 16 Blood Pressure 95/68 L 104/72 Pulse Oximetry 94 L 94 L 10/03/18 04:00 10/03/18 04:03 10/03/18 04:53 Temperature 98.6 F Pulse Rate 73 Respiratory Rate 16 Blood Pressure Pulse Oximetry 10/03/18 05:00 10/03/18 07:00 10/03/18 07:48 Temperature 98.1 F Pulse Rate 80 Respiratory Rate 14 Blood Pressure 91/60 L Pulse Oximetry 98 91 L 91 L 10/03/18 08:13 10/03/18 11:00 10/03/18 13:31 Temperature 96.5 F L Pulse Rate 74 76 Respiratory Rate 20 16 18 Blood Pressure 116/79 Pulse Oximetry 94 L 95 10/03/18 14:36 10/03/18 15:00 10/03/18 19:52 Temperature Pulse Rate 74 75 76 Respiratory Rate 18 15 18 Blood Pressure 103/72 Pulse Oximetry 97 96 10/03/18 20:05 Temperature Pulse Rate Respiratory Rate 20 Blood Pressure Pulse Oximetry Intake & Output 10/03/18 10/03/18 10/04/18 06:59 18:59 06:59 Intake Total 1570 / 1570 1050 / 1050 151 / 151 Output Total 245 / 245 900 / 900 Balance 1325 / 1325 150 / 150 151 / 151 Weight 84 kg Intake: IV 151 / 151 Heparin/D5W 25,000 U/250 mL 25, 151 / 151 000 unit In 250 ml @ Per Protocol IV.CONT TITRATE PRN Rx #:[id number] Oral 420 / 420 1050 / 1050 Other 350 / 350 Rbc As-3 Leukoreduced Unit 100 / 100 [id number] Rbc As-3 Leukoreduced Unit 250 / 250 [id number] Intake (Blood Product) Amt 800 / 800 Rbc As-3 Leukoreduced Unit 400 / 400 [id number] Rbc As-3 Leukoreduced Unit 400 / 400 [id number] Output: Urine Amount (Catheter) 235 / 235 900 / 900 Indwelling Temp Sensing 235 / 235 900 / 900 Catheter Chest Tube Drainage Pleural/Mediastinal Other: Other Intake Source Rbc As-3 Leukoreduced Unit Saline Solution [id number] Rbc As-3 Leukoreduced Unit Saline Solution [id number] # Bowel Movements 0 Narrative: GENERAL: Lethargic SKIN: Warm and dry. HEAD: Atraumatic. Normocephalic. EYES: Pupils equal and round. No scleral icterus. No injection or drainage. ENT: No nasal bleeding or discharge. Mucous membranes pink and moist. NECK: Trachea midline. No JVD. CARDIOVASCULAR: Regular rate and rhythm. Sternotomy clean/dry/intact RESPIRATORY: No accessory muscle use. Decreased breath sounds bilaterally GASTROINTESTINAL: Abdomen soft, non-tender, nondistended. Hepatic and splenic margins not palpable. MUSCULOSKELETAL: Extremities without clubbing, cyanosis, or edema. No obvious deformities. NEUROLOGICAL: Awake and alert. No obvious cranial nerve deficits. Motor grossly within normal limits. Five out of 5 muscle strength in the arms and legs. Normal speech. PSYCHIATRIC: Appropriate mood and affect; insight and judgment normal. - Urinary Catheter Management Indwelling Temp Sensing Catheter Cath placed during this visit: yes Reason for continuing: Hourly intake/output Insertion date: 09/29/18 Insertion time: 08:30 Results 10/03/18 05:13 10/03/18 18:45 Cardiac Enzymes 10/02/18 10/03/18 10/03/18 Range/Units 05:25 05:13 18:45 AST 973 H 1157 H 531 H (15-37) U/L Coagulation 10/02/18 10/03/18 Range/Units 05:25 05:13 APTT 65.1 H 52.7 H (23.4-31.7) sec CBC 10/02/18 10/02/18 10/03/18 Range/Units 05:25 22:07 05:13 WBC 9.4 7.8 7.5 (4.0-11.0) th/mm3 RBC 2.74 L 2.46 L 3.34 L (4.00-5.30) mil/mm3 Hgb 8.2 L 7.4 L 10.0 L D (11.6-15.3) gm/dL Hct 23.9 L 21.1 L 28.7 L (35.0-46.0) % Plt Count 119 L 85 L 75 L (150-450) th/mm3 Neut # (Auto) 6.4 5.2 (1.8-7.7) th/mm3 Lymph # (Auto) 2.3 2.0 (1.0-4.8) th/mm3 [place] # (Auto) 0.6 0.5 (0.0-0.9) th/mm3 Eos # (Auto) 0.1 0.1 (0.0-0.4) th/mm3 Baso # (Auto) 0.0 0.0 (0.0-0.2) th/mm3 Comprehensive Metabolic Panel 10/02/18 10/02/18 10/03/18 Range/Units 05:25 16:17 05:13 Sodium 139 140 139 (136-145) meq/L Potassium 4.5 4.3 4.1 (3.5-5.1) meq/L Chloride 110 H 109 H 109 H (98-107) meq/L Carbon Dioxide 19.4 L 19.0 L 17.9 L (21.0-32.0) meq/L BUN 17 23 H 29 H (7-18) mg/dL Creatinine 0.94 1.02 H 1.08 H (0.50-1.00) mg/dL Calcium 7.9 L 7.7 L 7.6 L (8.5-10.1) mg/dL Direct Bilirubin 0.7 H (0.0-0.2) mg/dL Indirect Bilirubin 0.5 (0.0-0.8) mg/dL AST 973 H 1157 H (15-37) U/L ALT 760 H 1006 H (10-53) U/L Alkaline Phosphatase 82 101 (45-117) U/L Total Protein 5.6 L 6.1 L (6.4-8.2) g/dL Albumin 2.6 L 3.1 L (3.4-5.0) g/dL 10/03/18 Range/Units 18:45 Sodium 137 (136-145) meq/L Potassium 4.6 (3.5-5.1) meq/L Chloride 108 H (98-107) meq/L Carbon Dioxide 18.2 L (21.0-32.0) meq/L BUN 32 H (7-18) mg/dL Creatinine 1.13 H (0.50-1.00) mg/dL Calcium 7.7 L (8.5-10.1) mg/dL Direct Bilirubin (0.0-0.2) mg/dL Indirect Bilirubin (0.0-0.8) mg/dL AST 531 H (15-37) U/L ALT 841 H (10-53) U/L Alkaline Phosphatase 123 H (45-117) U/L Total Protein 6.2 L (6.4-8.2) g/dL Albumin 3.0 L (3.4-5.0) g/dL Intake and Output 10/03/18 10/03/18 10/03/18 06:59 14:59 22:59 Intake Total 1570 / 1570 1201 / 1201 Output Total 245 / 245 900 / 900 Balance 1325 / 1325 301 / 301 Intake: IV 151 / 151 Heparin/D5W 25,000 U/250 mL 25, 151 / 151 000 unit In 250 ml @ Per Protocol IV.CONT TITRATE PRN Rx #:[id number] Oral 420 / 420 1050 / 1050 Other 350 / 350 Rbc As-3 Leukoreduced Unit 100 / 100 [id number] Rbc As-3 Leukoreduced Unit 250 / 250 [id number] Intake (Blood Product) Amt 800 / 800 Rbc As-3 Leukoreduced Unit 400 / 400 [id number] Rbc As-3 Leukoreduced Unit 400 / 400 [id number] Output: Urine Amount (Catheter) 235 / 235 900 / 900 Indwelling Temp Sensing 235 / 235 900 / 900 Catheter Chest Tube Drainage Pleural/Mediastinal Other: Other Intake Source Rbc As-3 Leukoreduced Unit Saline Solution [id number] Rbc As-3 Leukoreduced Unit Saline Solution [id number] # Bowel Movements 0 Weight 84 kg - Imaging and Cardiology Imaging: Impressions Abdomen/Bladder Ultrasound 10/02/18 00:00 CONCLUSION: 1. Increased echogenicity of the kidneys characteristic of medical renal disease. No hydronephrosis. No perinephric fluid. Barba catheter in bladder, decompressed. Chest X-Ray 10/03/18 06:00 CONCLUSION: 1. Endotracheal tube and nasogastric tube no longer seen. 2. Patchy left lung base atelectasis versus consolidation and mild diffuse hazy bilateral lung opacity. Assessment and Plan - Assessment (1) Unstable angina Code(s): I20.0 - Unstable angina Status: Acute (2) CAD (coronary artery disease), [place] coronary artery Code(s): I25.10 - Atherosclerotic heart disease of [place] coronary artery without angina pectoris Status: Acute (3) Diabetes mellitus Code(s): E11.9 - Type 2 diabetes mellitus without complications Status: Chronic (4) Acute ST elevation myocardial infarction (STEMI) Code(s): I21.3 - ST elevation (STEMI) myocardial infarction of unspecified site Status: Acute - Plan 1) CABG x4 2) Jacqui-procedure STEMI Found to have extensive thrombus in both [place] vessels as well as grafts RAMEY to LAD with competitive flow, most likely will occlude Thrombus in LAD aspirated, distal LAD unable to pass wire past the anastomosis site SVG to OM1/OM2 occluded with extensive thrombus MAXWELL x 2 to [place] OM1 MAXWELL to [place] LCx POBA of [place] OM2 RCA stents patent PDA occluded where it was previously jailed Unable to find SVG to PDA [place] to be small vessel supplying very little territory ASA/Plavix Possible change to Brilinta once stable 3) Intubated Doing well s/p extubation. 4) Hypercoagulable state Appreciate Hematology consultation Most likely anticoagulation/antiplatelet combination on discharge 5) Bedside HAKAN done with Dr. Enriquez EF 45%, inferolateral wall akinetic No significant valvulopathy. Bedside echo EF 40-45% 6) Fluid overload state from 2 units PRBC Agree with diuresis
[2018-10-04] MEDS: Morphine Inj 4 MG/ML Vial IV.PUSH PRN ×3 (00:30→13:38)
[2018-10-04 03:50] LABS: SSA High Dose 100 IU/mL 14 %release; SSA Low Dose 0.1IU/mL 59 %release; SSA Low Dose 0.5 IU/mL 60 %release; Serotonin Release Result POSITIVE (NEGATIVE)
[2018-10-04 05:37] LABS: Hematocrit 29.3 % (35.0-46.0); Hemoglobin 10.1 gm/dL (11.6-15.3); Mean Corpuscular HGB Conc 34.5 % (32.0-36.0); Mean Corpuscular Hemoglobin 29.9 pg (27.0-34.0); Mean Corpuscular Volume 86.9 fL (80.0-100.0); Platelet Count 86 th/mm3 (150-450); Red Blood Count 3.37 mil/mm3 (4.00-5.30); Red Cell Distribution Width 15.2 % (11.6-17.2); White Blood Count 8.3 th/mm3 (4.0-11.0)
[2018-10-04 06:02] LABS: Albumin 2.9 g/dL (3.4-5.0); Anion Gap 10 meq/L (5-15); Aspartate Aminotransferase 364 U/L (15-37); Blood Urea Nitrogen 29 mg/dL (7-18); Calcium 7.5 mg/dL (8.5-10.1); Carbon Dioxide 22.1 meq/L (21.0-32.0); Chloride 106 meq/L (98-107); Glomerular Filtration Rate 66 mL/min (>89); Glucose,Random 151 mg/dL (74-106); Magnesium 2.4 mg/dL (1.5-2.5); Potassium 4.5 meq/L (3.5-5.1); Sodium 138 meq/L (136-145)
[2018-10-04 06:06] LABS: Alanine Aminotransferase 754 U/L (10-53); Alkaline Phosphatase 240 U/L (45-117); Total Protein 6.2 g/dL (6.4-8.2)
--- NOTE | 2018-10-04 06:19 | XR ---
EXAM DATE: 10/04/2018 5:27 AM EST AGE/SEX: 58 years / Female INDICATIONS: Short of breath.: Removal chest tubes. CLINICAL DATA: This is the patient's subsequent encounter. Patient reports that signs and symptoms h ave been present for 1 week and indicates a pain score of 0/10. MEDICAL/SURGICAL HISTORY: Diabetes. Renal insufficiency. Myocardial infarction. MRSA. CABG. COMPARISON: [facility] [place] 1V SINGLE AP, 10/03/2018. . FINDINGS: A single AP portable semierect view of the chest was obtained and again demonstrates the patient is s tatus post median sternotomy. The previously noted mediastinal chest tube and left-sided chest tube b een removed and there is no pneumothorax. The heart size remains mildly prominent and there is blunti ng of both costophrenic angles. There is hazy opacity in both lungs which appears mildly increased. T he heart size remains mildly prominent. CONCLUSION: 1. Interval removal of mediastinal chest tube and left-sided chest tube with no pneumothorax. 2. Hazy opacity in both lungs with blunting of the costophrenic angles. This appears mildly increase d. Could represent increasing infiltrate and/or effusions. Electronically signed by: Guilherme Francisco MD 10/04/2018 6:18 AM EST
[2018-10-04] MEDS: Insulin NovoLOG Aspart Correctional Sugar Inj SQ SCH ×4 (08:24→21:13)
--- NOTE | 2018-10-04 09:22 | P.PNCC ---
Subjective Subjective Remarks/Hospital Course: This is a 58yF with history of CAD who underwent off-pump CABG x 4 (RAMEY-->LAD, SVG-->OM1, SVG-->OM2, SVG-->PDA). intra-operatively it was noted that she had significant ST elevations. immediately post-operatively, it was noted that she had tombstoning on her EKG. She was taken emergently to the senior cytogenetics laboratory director by Dr. Melissa where she had completely occluded grafts. He stented OM1, LAD. balloon angiopasty to OM2. She arrives back to the CVICU where I met her. She has had 4L crystalloid resuscitation. chest tubes have about 100cc sanguinous output. Of note, she was on a tranexamic acid infusion during the CABG which was started by anesthesia. the patient is intubated and no additional information is available from the patient. ROS unobtainable. I discussed the case with Dr. Melissa and Dr. Campos at bedside: plan to initiate heparin infusion 4 hours post-arterial sheath pull. I also discussed re-evaluation of LV function. Dr. Melissa and I performed HAKAN at bedside which demonstrated lateral and inferolateral hypokinesis, EF 45%, mild TR. 09/30 Patient is awake and alert. On Neosyn 20 mics, Precedex 0.3 and Heparin drip. Afebrile. 10/01 Patient did not tolerate CPAP yesterday, awake and alert. Had T:102.7 yesterday. On Neosyn 20 mics, Precedex 0.2 and Heparin drip. 10/02: Afebrile. Extubated yesterday currently on 3 L nasal cannula. Remains on phenylephrine drip at 30 mcg/min. Heparin drip at 900 units an hour. Heme otology workup currently in process. Speech therapy to evaluate swelling. Out of bed to chair today. 10/03: Overnight received 2 units of PRBC for hemoglobin of 7.4. Became hypoxemic posttransfusion, and had to be placed on partial nonrebreather. Currently remains on partial nonrebreather, chest x-ray shows worsening pulmonary vascular congestion/pulmonary edema. Also it was noted that liver enzymes AST 1157, ALT 1006. Liver ultrasound suggestive of a calculus cholecystitis. I have discontinued Tylenol products, held amiodarone and atorvastatin, requested GI consult. Patient may need cholecystostomy tube placement Subjective 10/04: LFTs trending downward. Currently on partial nonrebreather mask. Amiodarone, atorvastatin and acetaminophen all discontinued. On furosemide 40 mg 3 times daily currently. Hepatobiliary scan pending. Objective Vital Signs / I&O: Vital Signs 10/03/18 11:00 10/03/18 13:31 10/03/18 14:36 Temperature 96.5 F L Pulse Rate 76 74 Respiratory Rate 16 18 18 Blood Pressure 116/79 Pulse Oximetry 95 10/03/18 15:00 10/03/18 19:00 10/03/18 19:52 Temperature Pulse Rate 75 78 76 Respiratory Rate 15 18 Blood Pressure 103/72 Pulse Oximetry 97 96 10/03/18 20:00 10/03/18 20:05 10/03/18 23:00 Temperature 98.3 F Pulse Rate 78 78 Respiratory Rate 20 20 Blood Pressure 113/75 Pulse Oximetry 95 10/03/18 23:30 10/03/18 23:37 10/04/18 00:15 Temperature 97.9 F Pulse Rate 79 78 Respiratory Rate 20 24 Blood Pressure 101/67 Pulse Oximetry 93 L 98 10/04/18 00:32 10/04/18 00:40 10/04/18 03:00 Temperature Pulse Rate 75 Respiratory Rate 20 Blood Pressure Pulse Oximetry 98 10/04/18 03:25 10/04/18 04:00 10/04/18 04:02 Temperature 98.5 F Pulse Rate 75 Respiratory Rate 21 21 Blood Pressure 98/74 L Pulse Oximetry 98 98 10/04/18 07:00 10/04/18 07:40 10/04/18 08:00 Temperature 98.3 F Pulse Rate 79 81 Respiratory Rate 20 16 Blood Pressure 106/72 Pulse Oximetry 96 94 L 96 Intake & Output 10/03/18 10/04/18 10/04/18 18:59 06:59 18:59 Intake Total 1050 / 1050 451 / 451 Output Total 900 / 900 1025 / 1025 Balance 150 / 150 -574 / -574 Weight 84 kg Intake: IV 151 / 151 Heparin/D5W 25,000 U/250 mL 25, 151 / 151 000 unit In 250 ml @ Per Protocol IV.CONT TITRATE PRN Rx #:[id number] Oral 1050 / 1050 300 / 300 Output: Urine Amount (Catheter) 900 / 900 1025 / 1025 Indwelling Temp Sensing 900 / 900 1025 / 1025 Catheter Other: # Bowel Movements 0 Result Diagrams: 10/04/18 04:58 10/04/18 04:58 Other Results: Microbiology 10/01/18 11:39 Blood - Peripheral Aerobic Blood Culture - Preliminary No growth in 2 days 10/01/18 11:39 Blood - Peripheral Anaerobic Blood Culture - Preliminary No growth in 2 days 10/01/18 11:11 Blood - Peripheral Aerobic Blood Culture - Preliminary No growth in 2 days 10/01/18 11:11 Blood - Peripheral Anaerobic Blood Culture - Preliminary No growth in 2 days Imaging: Chest X-Ray 09/23/18 22:38 CONCLUSION: Negative examination. Lower Extremity Ultrasound 09/24/18 00:00 CONCLUSION: Nonvisualization of the greater saphenous vein and portions of the lower legs bilaterally. Venous Doppler Study 09/24/18 00:00 CONCLUSION: Negative study. No venous thrombosis of either lower extremity. Chest X-Ray 09/25/18 10:12 CONCLUSION: No evidence of acute cardiopulmonary process. Carotid Doppler Study 09/28/18 10:09 CONCLUSION: 1. Right Internal Carotid Artery: No significant stenosis or atherosclerotic plaque is visualized. 2. Left Internal Carotid Artery: No significant stenosis or atherosclerotic plaque is visualized. Chest X-Ray 09/29/18 13:35 CONCLUSION: Moderate pulmonary edema. Chest X-Ray 09/30/18 05:00 CONCLUSION: Mild bibasilar atelectasis. Liver Ultrasound 10/01/18 00:00 CONCLUSION: 1. Mild hepatomegaly and steatosis suspected. 2. Gallbladder wall thickening with pericholecystic fluid. In the appropriate clinical setting acalculous cholecystitis may have this appearance. Abdomen/Bladder Ultrasound 10/02/18 00:00 CONCLUSION: 1. Increased echogenicity of the kidneys characteristic of medical renal disease. No hydronephrosis. No perinephric fluid. Abrba catheter in bladder, decompressed. Chest X-Ray 10/03/18 06:00 CONCLUSION: 1. Endotracheal tube and nasogastric tube no longer seen. 2. Patchy left lung base atelectasis versus consolidation and mild diffuse hazy bilateral lung opacity. Chest X-Ray 10/04/18 06:00 CONCLUSION: 1. Interval removal of mediastinal chest tube and left-sided chest tube with no pneumothorax. 2. Hazy opacity in both lungs with blunting of the costophrenic angles. This appears mildly increased. Could represent increasing infiltrate and/or effusions. Objective Remarks: GENERAL: Patient is 58 yo female currently on partial nonrebreather in no acute distress SKIN: Warm and dry. HEAD: Normocephalic. EYES: No scleral icterus. No injection or drainage. NECK: Supple, trachea midline. No JVD or lymphadenopathy. CARDIOVASCULAR: Regular rate and rhythm. S1, S2 normal. Without murmurs, gallops, or rubs. RESPIRATORY: Breath sounds equal bilaterally, initially at the bases with few crackles. Using accessory muscle use. Mediastinal chest tube with serosanguineous output. GASTROINTESTINAL: Abdomen soft, non-tender, nondistended. No tenderness on palpation right upper quadrant MUSCULOSKELETAL: No significant peripheral edema. JUANCHO hose in place. Neuro: Awake and alert cranial nerve 2 through 12 grossly intact. Strength is equal symmetric. Normal sensation. Assessment and Plan - Assessment and Plan Plan: Neuro/psych: Depression -Continue sertraline 50 mg daily -Discontinue acetaminophen with elevated transaminases Resp: Acute hypoxemic respiratory failure Pulmonary edema with hypoxia - Currently on partial nonrebreather to keep oxygen saturation above 90%. - Bronchodilators with albuterol/ipratropium aerosols every 6 hours while awake times 2 days with - incentive spirometry while awake. EzPAP - hob elevated. BiPAP if needed - CXR 13 a.m. shows worsening pulmonary edema CV: s/p off-pump CABG x 4 (RAMEY-->LAD, SVG-->OM1, SVG-->OM2, SVG-->PDA) 09/29 Immediate post-op STEMI Post-op Graft thrombosis Developed fluid overload/pulmonary edema posttransfusion 10/03 IV L furosemide 40 mg IV 3 times daily. Currently off phenylephrine On Heparin drip currently at 900 units per hour Continue ASA, and clopidogrel Hold atorvastatin and amiodarone due to very elevated liver enzymes. Start low-dose beta-blockers if blood pressure remains stable HAKAN post-op: EF 45%, lateral and inferolateral hypokinesis, mild TR chest tubes to suction- monitor CT drainage. Check limited 2D echo today Renal: Acute kidney injury - Monitor renal function, I/O's, electrolytes replacement per protocol. Lasix as above Renal ultrasound indicated medical renal disease. Urine sodium was less than 5. Urine creatinine 300. FEN/GI: Transaminitis Probable acalculous cholecystitis -GI consulted, currently following and awaiting for HIDA scan results -Discontinue acetaminophen l, holding atorvastatin and amiodarone -Advance diet as tolerated per speech therapy -On pantoprazole 40mg IV daily -Liver ultrasound revealed edematous gallbladder. No signs of obstructive process. Need HIDA when more stable Cardiology following. Heme/ID: Acute graft thrombosis Normocytic anemia Acute thrombocytopenia Elevated thrombin time -Monitor CBC, coags- on Heparin drip -Negative HIT, positive YARITZA, hexagon all acid weakly positive. Remainder testing negative) -With recommendations hematology. Continue heparin drip, aspirin and clopidogrel ID: -Monitor for signs of infections ( fever, WBC) BC x 2 f/u negative today - perioperative abx per CTS -s/p cefazolin. Endo: Post-operative hyperglycemia - SSI with accuchecks Prophylaxis: - SCDs - heparin drip as above -Pantoprazole Lines: - 09/29 left radial art line and right IJ cordis with dual-lumen catheter - 09/29 Barba Level 2 follow-up
[2018-10-04] MEDS: Polyethylene Glycol 3350 17 GM Packet PO SCH (09:52)
[2018-10-04] MEDS: Pantoprazole Inj 40 MG Vial IV.PUSH SCH (09:54)
[2018-10-04] MEDS: Mupirocin 2% Nasal Oint Topical Syringe EACH NARE SCH ×2 (09:55→21:13)
[2018-10-04] MEDS: Sodium Chloride 0.9% 2 ML Flush BID IV.FLUSH SCH ×2 (09:55→21:14)
[2018-10-04] MEDS: Sertraline 50 MG Tablet PO SCH (09:56)
[2018-10-04] MEDS: Ranolazine 500 MG 12HR ER Tablet PO SCH ×2 (09:56→21:12)
[2018-10-04] MEDS: Docusate Sodium 100 MG Capsule PO SCH ×2 (09:56→21:13)
[2018-10-04] MEDS: Multivitamin/Minerals Therapeutic Tablet PO SCH (09:56)
[2018-10-04] MEDS: Senna/Docusate Sodium 8.6/50 MG Tablet PO SCH ×2 (09:56→21:13)
--- NOTE | 2018-10-04 12:02 | P.PNGI ---
Subjective Interval history: Up in chair with physical therapy continues in the cardiac intensive care setting labs reviewed which showed hemoglobin 10.1, no obvious bleeding white count 8.3 no fever decreased bilirubin at 1.1, AST 364 and ALT 754 both decreased, mild increase in alkaline phosphatase. Skin slightly pale, mild exertional dyspnea Physical Exam Vital signs: Vital Signs 10/03/18 13:31 10/03/18 14:36 10/03/18 15:00 Temperature Pulse Rate 74 75 Respiratory Rate 18 18 15 Blood Pressure 103/72 Pulse Oximetry 97 10/03/18 19:00 10/03/18 19:52 10/03/18 20:00 Temperature 98.3 F Pulse Rate 78 76 78 Respiratory Rate 18 20 Blood Pressure 113/75 Pulse Oximetry 96 95 10/03/18 20:05 10/03/18 23:00 10/03/18 23:30 Temperature Pulse Rate 78 79 Respiratory Rate 20 20 Blood Pressure Pulse Oximetry 10/03/18 23:37 10/04/18 00:15 10/04/18 00:32 Temperature 97.9 F Pulse Rate 78 Respiratory Rate 24 20 Blood Pressure 101/67 Pulse Oximetry 93 L 98 10/04/18 00:40 10/04/18 03:00 10/04/18 03:25 Temperature 98.5 F Pulse Rate 75 75 Respiratory Rate 21 Blood Pressure 98/74 L Pulse Oximetry 98 98 10/04/18 04:00 10/04/18 04:02 10/04/18 07:00 Temperature 98.3 F Pulse Rate 79 Respiratory Rate 21 20 Blood Pressure 106/72 Pulse Oximetry 98 96 10/04/18 07:40 10/04/18 08:00 Temperature Pulse Rate 81 Respiratory Rate 16 Blood Pressure Pulse Oximetry 94 L 96 Intake & Output 10/03/18 10/04/18 10/04/18 18:59 06:59 18:59 Intake Total 1050 / 1050 451 / 451 Output Total 900 / 900 1025 / 1025 Balance 150 / 150 -574 / -574 Weight 84 kg Intake: IV 151 / 151 Heparin/D5W 25,000 U/250 mL 25, 151 / 151 000 unit In 250 ml @ Per Protocol IV.CONT TITRATE PRN Rx #:[id number] Oral 1050 / 1050 300 / 300 Output: Urine Amount (Catheter) 900 / 900 1025 / 1025 Indwelling Temp Sensing 900 / 900 1025 / 1025 Catheter Other: # Bowel Movements 0 - Constitutional moderate distress, obese, disheveled, cooperative - Routine HEENT Exam Head: Present: normocephalic ENT: Present: mucous membranes moist - Routine Neck Exam Present: supple - Routine Respiratory Exam Present: decreased breath sounds (Exertional SOB noted) - Routine Cardiovascular Exam Present: S1, S2 - Routine Abdominal Exam Present: soft (Round, taut, midsternal incision with some mild soreness to touch , soft bowel sounds, no obvious distention no right upper quadrant abdominal pain) - Routine Skin Exam Present: pallor - Routine Neurological Exam Present: alert - Urinary Catheter Management Indwelling Temp Sensing Catheter Cath placed during this visit: yes Reason for continuing: Hourly intake/output Insertion date: 09/29/18 Insertion time: 08:30 Results - Labs CBC & Chem 7: 10/04/18 04:58 10/04/18 04:58 Laboratory Results - last 24 hr 09/29/18 09/30/18 09/30/18 19:25 12:45 12:45 WBC RBC Hgb Hct MCV MCH MCHC RDW Plt Count MPV APTT Thrombin Time 77 H Lupus Anticoagulant Lupus Anticoag aPTT 78.0 H Dil Christiano Viper Venom 31.0 dRVVT Confirm Interp ND dRVVT Mix Pat/Norm 1:1 ND dRVVT Mix Interpret ND Hexagonal Phase Confirm Weakly positive A Protein C Antigen 79 Protein C Activity 105 Protein S Activity 89 Free Protein S Antigen 88 Factor V Leiden Mutat Negative Factor V Leiden Interp . Fact V Leiden Review By See below Sodium Potassium Chloride Carbon Dioxide Anion Gap BUN Creatinine Estimated GFR POC Glucose Random Glucose Lactic Acid Calcium Magnesium Total Bilirubin AST ALT Alkaline Phosphatase Total Protein Albumin Serotonin Release Assay Positive A YARITZA UFH Low Dose 0.1 59 YARITZA UFH Low Dose 0.5 60 YARITZA UFH High Dose 100 14 Anti-Cardiolipin IgG Ab Less than 14.0 Anti-Cardiolipin IgA Ab Less than 11.0 Anti-Cardiolipin IgM Ab Less than 12.0 Prothrombin [id number] Mut 10/03/18 10/03/18 10/03/18 12:45 12:47 17:15 WBC RBC Hgb Hct MCV MCH MCHC RDW Plt Count MPV APTT Thrombin Time Lupus Anticoagulant Lupus Anticoag aPTT Dil Christiano Viper Venom dRVVT Confirm Interp dRVVT Mix Pat/Norm 1:1 dRVVT Mix Interpret Hexagonal Phase Confirm Protein C Antigen Protein C Activity Protein S Activity Free Protein S Antigen Factor V Leiden Mutat Factor V Leiden Interp Fact V Leiden Review By Sodium Potassium Chloride Carbon Dioxide Anion Gap BUN Creatinine Estimated GFR POC Glucose 124 H 161 H Random Glucose Lactic Acid 1.3 Calcium Magnesium Total Bilirubin AST ALT Alkaline Phosphatase Total Protein Albumin Serotonin Release Assay YARITZA UFH Low Dose 0.1 YARITZA UFH Low Dose 0.5 YARITZA UFH High Dose 100 Anti-Cardiolipin IgG Ab Anti-Cardiolipin IgA Ab Anti-Cardiolipin IgM Ab Prothrombin [id number] Mut 10/03/18 10/03/18 10/04/18 18:45 21:14 04:58 WBC 8.3 RBC 3.37 L Hgb 10.1 L Hct 29.3 L MCV 86.9 MCH 29.9 MCHC 34.5 RDW 15.2 Plt Count 86 L MPV 9.0 APTT Thrombin Time Lupus Anticoagulant Lupus Anticoag aPTT Dil Christiano Viper Venom dRVVT Confirm Interp dRVVT Mix Pat/Norm 1:1 dRVVT Mix Interpret Hexagonal Phase Confirm Protein C Antigen Protein C Activity Protein S Activity Free Protein S Antigen Factor V Leiden Mutat Factor V Leiden Interp Fact V Leiden Review By Sodium 137 Potassium 4.6 Chloride 108 H Carbon Dioxide 18.2 L Anion Gap 11 BUN 32 H Creatinine 1.13 H Estimated GFR 60 L POC Glucose 185 H Random Glucose 189 H Lactic Acid Calcium 7.7 L Magnesium Total Bilirubin 1.3 H AST 531 H ALT 841 H Alkaline Phosphatase 123 H Total Protein 6.2 L Albumin 3.0 L Serotonin Release Assay YARITZA UFH Low Dose 0.1 YARITZA UFH Low Dose 0.5 YARITZA UFH High Dose 100 Anti-Cardiolipin IgG Ab Anti-Cardiolipin IgA Ab Anti-Cardiolipin IgM Ab Prothrombin [id number] Mut 10/04/18 10/04/18 10/04/18 04:58 04:58 08:20 WBC RBC Hgb Hct MCV MCH MCHC RDW Plt Count MPV APTT 42.9 H Thrombin Time Lupus Anticoagulant Lupus Anticoag aPTT Dil Christiano Viper Venom dRVVT Confirm Interp dRVVT Mix Pat/Norm 1:1 dRVVT Mix Interpret Hexagonal Phase Confirm Protein C Antigen Protein C Activity Protein S Activity Free Protein S Antigen Factor V Leiden Mutat Factor V Leiden Interp Fact V Leiden Review By Sodium 138 Potassium 4.5 Chloride 106 Carbon Dioxide 22.1 Anion Gap 10 BUN 29 H Creatinine 1.04 H Estimated GFR 66 L POC Glucose 185 H Random Glucose 151 H Lactic Acid Calcium 7.5 L Magnesium 2.4 Total Bilirubin 1.1 H AST 364 H ALT 754 H Alkaline Phosphatase 240 H Total Protein 6.2 L Albumin 2.9 L Serotonin Release Assay YARITZA UFH Low Dose 0.1 YARITZA UFH Low Dose 0.5 YARITZA UFH High Dose 100 Anti-Cardiolipin IgG Ab Anti-Cardiolipin IgA Ab Anti-Cardiolipin IgM Ab Prothrombin [id number] Mut 10/04/18 11:24 WBC RBC Hgb Hct MCV MCH MCHC RDW Plt Count MPV APTT Thrombin Time Lupus Anticoagulant Lupus Anticoag aPTT Dil Christiano Viper Venom dRVVT Confirm Interp dRVVT Mix Pat/Norm 1:1 dRVVT Mix Interpret Hexagonal Phase Confirm Protein C Antigen Protein C Activity Protein S Activity Free Protein S Antigen Factor V Leiden Mutat Factor V Leiden Interp Fact V Leiden Review By Sodium Potassium Chloride Carbon Dioxide Anion Gap BUN Creatinine Estimated GFR POC Glucose 207 H Random Glucose Lactic Acid Calcium Magnesium Total Bilirubin AST ALT Alkaline Phosphatase Total Protein Albumin Serotonin Release Assay YARITZA UFH Low Dose 0.1 YARITZA UFH Low Dose 0.5 YARITZA UFH High Dose 100 Anti-Cardiolipin IgG Ab Anti-Cardiolipin IgA Ab Anti-Cardiolipin IgM Ab Prothrombin [id number] Mut Microbiology 10/01/18 11:39 Blood - Peripheral Aerobic Blood Culture - Preliminary No growth in 3 days 10/01/18 11:39 Blood - Peripheral Anaerobic Blood Culture - Preliminary No growth in 3 days 10/01/18 11:11 Blood - Peripheral Aerobic Blood Culture - Preliminary No growth in 3 days 10/01/18 11:11 Blood - Peripheral Anaerobic Blood Culture - Preliminary No growth in 3 days - Imaging Impressions Chest X-Ray 10/04/18 06:00 CONCLUSION: 1. Interval removal of mediastinal chest tube and left-sided chest tube with no pneumothorax. 2. Hazy opacity in both lungs with blunting of the costophrenic angles. This appears mildly increased. Could represent increasing infiltrate and/or effusions. - Procedures None Assessment and Plan (1) Elevated LFTs Status: Acute Code(s): R94.5 - Abnormal results of liver function studies - Plan This patient is a 58-year-old female with a past medical history significant for coronary artery disease and diabetes mellitus. Patient presented to the emergency room at [facility] on 09/24/2018 with complaint of chest pain for 1 week. 09/29/2018 patient underwent coronary artery bypass grafting x 4. Patient presently on heparin drip and aspirin. Patient extubated on nonrebreather mask sinus rhythm in the 70s BP 122/70 saturation 95-96%. Our service has been consulted to evaluate patient's elevated liver enzymes. Total bilirubin 0.5 AST 1157 ALT 1006 alk phos 101 ammonia 53. Upon consultation patient reports surgical history significant for hysterectomy , carpal tunnel surgery and right shoulder surgery. Patient denies any nausea or vomiting or diarrhea. She denies any known family history for gastrointestinal disorders. States last EGD was 10 years ago where she was tested positive for H. pylori. Patient denies ever having had a colonoscopy in the past. She reports having 1 daily BM that is soft and brown without any noted bleeding. Elevated liver enzymes 10/03/2018 total bilirubin 1.2 direct bilirubin 0.7 and direct 0.5 AST 1157 ALT 1006 alk phos 101 Hemoglobin 10.0 hematocrit 28.7. 10/01/2018 liver ultrasound revealed the following findings: 1. Mild hepatomegaly and steatosis suspected. 2. Gallbladder wall thickening with pericholecystic fluid. In the appropriate clinical setting acalculous cholecystitis may have this appearance. 10/04/2018, care setting but is getting up out of bed into chair this early a.m. with physical therapy. Continues on heparin drip and tolerating liquid diet. Current labs reviewed which show hemoglobin 10.1 which is probably acute on chronic anemia since she is status post CABG. WBC count 8.3. Current bilirubin decreased to 1.1, decreased AST 364 decreased ALT 754 increased alkaline [place] 240. Patient has recommendations from speech therapy for full liquids and thin liquids. Okay from a GI standpoint patient does note generalized chest tenderness but no acute right upper quadrant pain for now. IR initially consulted on 10/03/2018 for cholecystotomy tube, but felt it was not necessary at this time due to patient's normal white count and no obvious infection. A calculus cholecystitis, probable will need HIDA scan when she is stable. Also recommend possible EGD colonoscopy once patient is better and out of the hospital. Other causes of elevated LFTs could be related to medications, note amiodarone Tylenol and atorvastatin were discontinued, possible cholecystitis, no obvious infection noted. Plan Diet full liquids and thin liquids approved per ST PPI Bowel regimen as needed Monitor labs Supportive care Patient was seen per myself and Dr. Renteria, note was written on his behalf
--- NOTE | 2018-10-04 14:52 | P.PNCV ---
- Note Subjective/Hospital Course: sts data discussed with pt RISK SCORES About the STS Risk Calculator Procedure: CAB Only Risk of Mortality: 0.745% Morbidity or Mortality: 8.994% Long Length of Stay: 3.108% Short Length of Stay: 56.144% Permanent Stroke: 0.567% Prolonged Ventilation: 6.252% DSW Infection: 0.387% Renal Failure: 1.922% Reoperation: 3.349% 58-year-old female with a significant history of coronary artery disease the presented to the ED for evaluation of chest pain. Patient has had chest pain for about a week. Per patient is progressively getting worse. She denies any urinary or bowel movement issues. She states that the pain gets worse with stress and movement. She took 4 nitro with minimal improvement of the symptoms which was what prompted her evaluation. Patient was admitted recently in July for evaluation of similar. She had another heart cath that showed . Significant multivessel disease, although overall small vessels. She did not had stenting at that time and they thought that she could have increase of her medications and may be this will help with her symptoms but she continues to have symptoms. PMH: CAD/ CA/ Stents/ HTN, HLP, DM insulin dependent EF 58% 09/26 pt on heparin gtt, 3 mcq of NTG will resume imdur and dc NTG, pt pain free eval PRU in am for timing of surgery off Brilinta since Thursday 09/27 off NTG gtt / on imdur/ heparin gtt, painfree PRU>250 stable for surgery on 09/28 doing well, no chest pain during the night on heparin gtt stable for surgery in am 09/29 SURGICAL PROCEDURE 1. Urgent Off-pump Coronary Artery Bypass Grafting x 4 with Left Internal Mammary Artery (RAMEY) to Left Anterior Descending (LAD), reverse saphenous vein graft to obtuse Marginal1 and sequentially to the Obtuse Marginal 2 branches of the left Circumflex artery, reverse saphenous vein graft to the posterior Descending branch of the right Coronary artery 2. Left leg Endoscopic Vein [place] 3. Intraoperative Vein Mapping. 09/30 Clinically and hemodynamic is stable Events noted with hyper acute thrombosis of all the grafts. PCI to the circumflex distribution Greatly appreciate Dr. Melissa and Dr. Enriquez's assistance in her care Wean to extubate today Presently on aspirin Plavix and heparin drip. Will defer to Dr. Melissa regarding long-term antiplatelet therapy Greatly appreciate Dr. Curry's input regarding further workup of her thrombotic state 10/01 Doing well this morning Awake alert oriented and responds appropriately verbal commands Weaning ventilator with plans to extubate today Hemodynamically stable Maintain chest tubes to drainage for now 10/02 Remains weak Not taking deep breaths or coughing Needs PT OT and incentive spirometry Likely DC chest tubes in a.m. once she has gotten out of bed 10/03 minimal drainage in chest tube will dc today / heparin off to remove chest tubes, then resume weak, sleepy , will dc narcotics for now elevated LFT tylenol , amiodarone and statin held ammonia level 53 yesterday on partial NRB, needs aggressive pulm toileting OOB with assistance/ PT 10/04 remains on partial NRB mask diuresis increased PLT 83, continue ASA, plavix and heparin gtt for now with recent acute graft closure await final decision regarding NOAC on pt / was on Brilinta before surgery Objective: Vital Signs - 24 hr 10/03/18 15:00 10/03/18 19:00 10/03/18 19:52 Temperature Pulse Rate 75 78 76 Respiratory Rate 15 18 Blood Pressure 103/72 Pulse Oximetry 97 96 10/03/18 20:00 10/03/18 20:05 10/03/18 23:00 Temperature 98.3 F Pulse Rate 78 78 Respiratory Rate 20 20 Blood Pressure 113/75 Pulse Oximetry 95 10/03/18 23:30 10/03/18 23:37 10/04/18 00:15 Temperature 97.9 F Pulse Rate 79 78 Respiratory Rate 20 24 Blood Pressure 101/67 Pulse Oximetry 93 L 98 10/04/18 00:32 10/04/18 00:40 10/04/18 03:00 Temperature Pulse Rate 75 Respiratory Rate 20 Blood Pressure Pulse Oximetry 98 10/04/18 03:25 10/04/18 04:00 10/04/18 04:02 Temperature 98.5 F Pulse Rate 75 Respiratory Rate 21 21 Blood Pressure 98/74 L Pulse Oximetry 98 98 10/04/18 07:00 10/04/18 07:40 10/04/18 08:00 Temperature 98.3 F Pulse Rate 79 81 Respiratory Rate 20 16 Blood Pressure 106/72 Pulse Oximetry 96 94 L 96 10/04/18 13:13 Temperature Pulse Rate 81 Respiratory Rate 18 Blood Pressure Pulse Oximetry GENERAL: A&O x 3 SKIN: Warm and dry. prevena dressing to chest , incision intact to left leg HEAD: Normocephalic. EYES: No scleral icterus. No injection or drainage. NECK: Supple, trachea midline. No JVD or lymphadenopathy. CARDIOVASCULAR: Regular rate and rhythm without murmurs, gallops, or rubs. RESPIRATORY: diminished in bases, bibasilar Breath sounds equal bilaterally. No accessory muscle use. GASTROINTESTINAL: Abdomen soft, non-tender, nondistended, + bowel sound, no tenderness MUSCULOSKELETAL: No cyanosis, + edema. BACK: Nontender without obvious deformity. No CVA tenderness. Labs: Laboratory Results - last 12 hr 09/29/18 10/04/18 10/04/18 19:25 04:58 04:58 WBC 8.3 RBC 3.37 L Hgb 10.1 L Hct 29.3 L MCV 86.9 MCH 29.9 MCHC 34.5 RDW 15.2 Plt Count 86 L MPV 9.0 APTT Sodium 138 Potassium 4.5 Chloride 106 Carbon Dioxide 22.1 Anion Gap 10 BUN 29 H Creatinine 1.04 H Estimated GFR 66 L POC Glucose Random Glucose 151 H Calcium 7.5 L Magnesium 2.4 Total Bilirubin 1.1 H AST 364 H ALT 754 H Alkaline Phosphatase 240 H Total Protein 6.2 L Albumin 2.9 L Serotonin Release Assay Positive A YARITZA UFH Low Dose 0.1 59 YARITZA UFH Low Dose 0.5 60 YARITZA UFH High Dose 100 14 10/04/18 10/04/18 10/04/18 04:58 08:20 11:24 WBC RBC Hgb Hct MCV MCH MCHC RDW Plt Count MPV APTT 42.9 H Sodium Potassium Chloride Carbon Dioxide Anion Gap BUN Creatinine Estimated GFR POC Glucose 185 H 207 H Random Glucose Calcium Magnesium Total Bilirubin AST ALT Alkaline Phosphatase Total Protein Albumin Serotonin Release Assay YARITZA UFH Low Dose 0.1 YARITZA UFH Low Dose 0.5 YARITZA UFH High Dose 100 Result Diagrams: 10/04/18 04:58 10/04/18 04:58 Telemetry: NSR - Plan (1) S/P coronary artery bypass graft x 4 Plan: off statin, amiodarone 2/2 elevated LFT OOB to chair off pressors, on partial NRB/ worsening CXR / diuretics increased remains on ASA, Plavix , heparin gtt hopefully dc [place] when ok with CCM and dc woods cath wo (2) Renal insufficiency Plan: indices improving (3) CAD (coronary artery disease), [place] coronary artery Plan: ASA, Heparin gtt (4) Diabetes mellitus Plan: diabetic diet insulin sliding scale HGB A1C 8.6 (5) Subsequent non-ST elevation (NSTEMI) myocardial infarction Plan: Left heart catheterization, coronary angiogram, bypass angiogram, complex case, moderate sedation at 128 minutes, [place] drug-eluting stent x2 (proximal 2 x 12, mid 2 x 30) to first obtuse marginal, balloon angioplasty of the second obtuse marginal, [place] drug-eluting stent (2 x 30) to mid left circumflex, aspiration thrombectomy of LAD. (6) Unstable angina Plan: pain free at this time (7) Elevated LFTs Plan: tylenol dc amiodarone dc statin dc f/u levels in am GI consulted US calculus cholecystitis / Hida scan when more stble hold on kishan drain for now
[2018-10-04] MEDS ORDERED: Phenol 1.4% 180 ML Spray Bottle OROPHARYNG PRN (17:48)
[2018-10-04] MEDS: Heparin Drip 25,000 UNIT/250 ML BAG IV.CONT PRN (19:40)
[2018-10-04 21:21] LABS: Calcium 7.4 mg/dL (8.5-10.1); Carbon Dioxide 21.3 meq/L (21.0-32.0); Potassium 4.3 meq/L (3.5-5.1)
[2018-10-04 21:35] LABS: Total Protein 6.2 g/dL (6.4-8.2)
--- NOTE | 2018-10-04 22:32 | P.PNCA ---
Subjective Interval history: Still feels weak On partial non-rebreather mask Medications and Allergies Active Medications: Active Medications Al Hydroxide/Mg Hydroxide (Milk Of [place]tr[place] Liq) 30 ml PO DAILY [facility] Last Admin: 10/04/18 09:54 Dose: 30 ml Albuterol (Duoneb Neb (Prn)) 1 ampul NEB Q2HR NEB PRN PRN Reason: WHEEZING Last Admin: 10/03/18 23:27 Dose: 1 ampul Albuterol (Duoneb Neb (Estelle)) 1 ampul NEB Q6HR WHILE AWAKE NEB [facility] Stop: 10/06/18 13:59 Last Admin: 10/04/18 20:23 Dose: 1 ampul Amiodarone HCl (Cordarone) 200 mg PO Q12HR [facility] Last Admin: 10/02/18 20:05 Dose: 200 mg Aspirin (Aspirin Chew) 81 mg PO DAILY [facility] Last Admin: 10/04/18 09:55 Dose: 81 mg Atorvastatin Calcium (Lipitor) 20 mg PO HS [facility] Last Admin: 10/02/18 20:05 Dose: 20 mg Bisacodyl (Dulcolax Supp) 10 mg RECTAL PRN PRN PRN Reason: SEE LABEL COMMENTS Clopidogrel Bisulfate (Plavix) 75 mg PO DAILY [facility] Last Admin: 10/04/18 09:56 Dose: 75 mg Dextrose (D50w Vial) 50 ml IV.PUSH UNSCH PRN PRN Reason: PER HYPOGLYCEMIA PROTOCOL Docusate Sodium (Colace) 100 mg PO BID [facility] Last Admin: 10/04/18 21:13 Dose: 100 mg Furosemide (Lasix Inj) 40 mg IV.PUSH Q8H [facility] Stop: 10/05/18 10:01 Last Admin: 10/04/18 19:39 Dose: 40 mg Glucagon (Glucagon Inj) 1 mg OTHER PRN PRN PRN Reason: For hypoglycemia Magnesium Sulfate 2 gm/ Sodium (Chloride) 100 mls @ 50 mls/hr IV.SIG PRN PRN PRN Reason: SEE LABEL COMMENTS Last Infusion: 10/01/18 12:00 Dose: Infused Magnesium Sulfate 2 gm/ Sodium (Chloride) 100 mls @ 50 mls/hr IV.SIG PRN PRN PRN Reason: SEE LABEL COMMENTS Phenylephrine HCl 40 mg/ (Sodium Chloride) 500 mls @ 30 mls/hr IV.CONT TITRATE PRN; Protocol PRN Reason: See Protocol Last Titration: 10/03/18 07:00 Dose: 0 mcg/min, 0 mls/hr Potassium Chloride (Kcl 20 Meq Premix Inj) 20 meq in 100 mls @ 50 mls/hr IV.SIG PRN PRN PRN Reason: SEE LABEL COMMENTS Last Infusion: 10/01/18 16:31 Dose: Infused Potassium Chloride (Kcl 20 Meq Premix Inj) 20 meq in 100 mls @ 50 mls/hr IV.SIG PRN PRN PRN Reason: SEE LABEL COMMENTS Potassium Chloride (Kcl 20 Meq Premix Inj) 20 meq in 100 mls @ 50 mls/hr IV.SIG PRN PRN PRN Reason: SEE LABEL COMMENTS Last Infusion: 09/30/18 01:35 Dose: Infused Heparin Sodium/Dextrose (Heparin/D5w 25,000 U/250 Ml) 25,000 unit in 250 mls @ 0 mls/hr IV.CONT TITRATE PRN; Protocol PRN Reason: Per Protocol Last Admin: 10/04/18 19:40 Dose: 9 units/hr, 0.09 mls/hr Insulin Aspart (Novolog Insulin Correctional Sugar Inj) 0 unit SQ ACHS [facility]; Protocol Last Admin: 10/04/18 21:13 Dose: 14 unit Isosorbide Mononitrate (Imdur) 30 mg PO DAILY [facility] Last Admin: 09/30/18 12:01 Dose: Not Given Lactulose (Lactulose Liq) 30 ml PO DAILY PRN PRN Reason: SEVERE CONSITIPATION Lactulose (Lactulose Liq) 30 ml PO DAILY [facility] Morphine Sulfate (Morphine Inj) 2 mg IV.PUSH Q4H PRN PRN Reason: Acute Pain 1-10 Last Admin: 10/04/18 13:38 Dose: 2 mg Multivitamins/Minerals (Theragran-M) 1 tab PO DAILY [facility] Last Admin: 10/04/18 09:56 Dose: 1 tab Mupirocin (Bactroban 2% Nasal Oint) 1 applicatio EACH NARE BID [facility] Last Admin: 10/04/18 21:13 Dose: 1 applicatio Ondansetron HCl (Zofran Inj) 4 mg IV.PUSH Q6H PRN PRN Reason: NAUSEA OR VOMITING Pantoprazole Sodium (Protonix Inj) 40 mg IV.PUSH DAILY [facility] Last Admin: 10/04/18 09:54 Dose: 40 mg Phenylephrine HCl (Neosynephrine Inj) 0.1 mg IV.PUSH UNSCH PRN PRN Reason: SEE LABEL COMMENTS Polyethylene Glycol (Miralax) 17 gm PO DAILY [facility] Last Admin: 10/04/18 09:52 Dose: 17 gm Potassium Chloride (K-Dur) 20 meq PO UNSCH PRN PRN Reason: SEE LABEL COMMENTS Potassium Chloride (K-Dur) 40 meq PO UNSCH PRN PRN Reason: SEE LABEL COMMENTS Ranolazine (Ranexa) 500 mg PO Q12H [facility] Last Admin: 10/04/18 21:12 Dose: 500 mg Senna/Docusate Sodium (Jacqui-Colace) 1 tab PO BID [facility] Last Admin: 10/04/18 21:13 Dose: 1 tab Sennosides (Senokot) 17.2 mg PO Q12H PRN PRN Reason: Moderate Constipation Sennosides (Senokot) 8.6 mg PO HS [facility] Last Admin: 10/04/18 21:12 Dose: 8.6 mg Sertraline HCl (Zoloft) 50 mg PO DAILY [facility] Last Admin: 10/04/18 09:56 Dose: 50 mg Sodium Biphosphate/Sodium Phosphate (Fleets Enema (Adult)) 118 ml RECTAL UNSCH PRN PRN Reason: SEE LABEL COMMENTS Sodium Chloride (Ns Flush) 2 ml IV.FLUSH BID [facility] Last Admin: 10/04/18 21:14 Dose: 2 ml Sodium Chloride (Ns Flush) 2 ml IV.FLUSH PRN PRN PRN Reason: FLUSH AFTER USING IV ACCESS Temazepam (Restoril) 7.5 mg PO [facility] Last Admin: 10/04/18 21:14 Dose: Not Given Throat Lozenges (Chloraseptic [place]) 2 spray OROPHARYNG Q2H PRN PRN Reason: SORE THROAT Last Admin: 10/04/18 21:15 Dose: 2 spray Allergies Allergy/AdvReac Type Severity Reaction Status Date / Time metoprolol Allergy Severe HALLUCINATI Verified 09/23/18 22:25 ONS famotidine Allergy Unknown RASH Verified 09/23/18 22:25 lisinopril Allergy Unknown Itching Verified 09/23/18 22:25 insulin detemir AdvReac Unknown Diarrhea Verified 09/23/18 22:25 Home Medications Medication Instructions Recorded Confirmed Type aspirin [Aspir-81] 81 mg PO DAILY 08/03/18 09/24/18 History atorvastatin 20 mg PO DAILY 08/03/18 09/24/18 History insulin glargine [Lantus U-100 25 unit SUB-Q DAILY 08/03/18 09/24/18 History Insulin] insulin lispro [Humalog U-100 45 unit SUB-Q DAILY 08/03/18 09/24/18 History Insulin] isosorbide mononitrate 30 mg PO QAM 08/03/18 09/24/18 History methocarbamol 500 mg PO QID 08/03/18 09/24/18 History nitroglycerin 0.3 mg SUBLINGUAL Q5-15M PRN 08/03/18 09/24/18 History sertraline 50 mg PO DAILY 08/03/18 09/24/18 History temazepam 7.5 mg PO HS 08/03/18 09/24/18 History ticagrelor [Brilinta] 90 mg PO BID 08/03/18 09/24/18 History Physical Exam Vital signs: Vital Signs 10/03/18 23:00 10/03/18 23:30 10/03/18 23:37 Temperature 97.9 F Pulse Rate 78 79 78 Respiratory Rate 20 24 Blood Pressure 101/67 Pulse Oximetry 93 L 10/04/18 00:15 10/04/18 00:32 10/04/18 00:40 Temperature Pulse Rate Respiratory Rate 20 Blood Pressure Pulse Oximetry 98 98 10/04/18 03:00 10/04/18 03:25 10/04/18 04:00 Temperature 98.5 F Pulse Rate 75 75 Respiratory Rate 21 21 Blood Pressure 98/74 L Pulse Oximetry 98 10/04/18 04:02 10/04/18 07:00 10/04/18 07:40 Temperature 98.3 F Pulse Rate 79 81 Respiratory Rate 20 16 Blood Pressure 106/72 Pulse Oximetry 98 96 94 L 10/04/18 08:00 10/04/18 11:00 10/04/18 13:13 Temperature 98.0 F Pulse Rate 81 81 Respiratory Rate 24 18 Blood Pressure 109/66 Pulse Oximetry 96 98 10/04/18 15:00 10/04/18 20:27 Temperature 98.5 F Pulse Rate 82 81 Respiratory Rate 24 16 Blood Pressure 101/66 Pulse Oximetry 98 97 Intake & Output 11/10/04/18 10/05/18 06:59 18:59 06:59 Intake Total 451 / 451 1110 / 1110 151 / 151 Output Total 1025 / 1025 1500 / 1500 Balance -574 / -574 -390 / -390 151 / 151 Weight 84 kg Intake: IV 151 / 151 151 / 151 Heparin/D5W 25,000 U/250 mL 25, 151 / 151 151 / 151 000 unit In 250 ml @ Per Protocol IV.CONT TITRATE PRN Rx #:[id number] Oral 300 / 300 1110 / 1110 Output: Urine Amount (Catheter) 1025 / 1025 1500 / 1500 Indwelling Temp Sensing 1025 / 1025 1500 / 1500 Catheter Other: # Bowel Movements 0 Narrative: GENERAL: NAD SKIN: Warm and dry. HEAD: Atraumatic. Normocephalic. EYES: Pupils equal and round. No scleral icterus. No injection or drainage. ENT: No nasal bleeding or discharge. Mucous membranes pink and moist. NECK: Trachea midline. No JVD. CARDIOVASCULAR: Regular rate and rhythm. Sternotomy clean/dry/intact RESPIRATORY: No accessory muscle use. Decreased breath sounds bilaterally GASTROINTESTINAL: Abdomen soft, non-tender, nondistended. Hepatic and splenic margins not palpable. MUSCULOSKELETAL: Extremities without clubbing, cyanosis, or edema. No obvious deformities. NEUROLOGICAL: Awake and alert. No obvious cranial nerve deficits. Motor grossly within normal limits. Five out of 5 muscle strength in the arms and legs. Normal speech. PSYCHIATRIC: Appropriate mood and affect; insight and judgment normal. - Urinary Catheter Management Indwelling Temp Sensing Catheter Cath placed during this visit: yes Reason for continuing: Hourly intake/output Insertion date: 09/29/18 Insertion time: 08:30 Results 10/04/18 04:58 10/04/18 19:18 Cardiac Enzymes 10/03/18 10/03/18 10/04/18 Range/Units 05:13 18:45 04:58 AST 1157 H 531 H 364 H (15-37) U/L Coagulation 10/03/18 10/04/18 Range/Units 05:13 04:58 APTT 52.7 H 42.9 H (23.4-31.7) sec CBC 10/03/18 10/04/18 Range/Units 05:13 04:58 WBC 7.5 8.3 (4.0-11.0) th/mm3 RBC 3.34 L 3.37 L (4.00-5.30) mil/mm3 Hgb 10.0 L D 10.1 L (11.6-15.3) gm/dL Hct 28.7 L 29.3 L (35.0-46.0) % Plt Count 75 L 86 L (150-450) th/mm3 Comprehensive Metabolic Panel 10/03/18 10/03/18 10/04/18 Range/Units 05:13 18:45 04:58 Sodium 139 137 138 (136-145) meq/L Potassium 4.1 4.6 4.5 (3.5-5.1) meq/L Chloride 109 H 108 H 106 (98-107) meq/L Carbon Dioxide 17.9 L 18.2 L 22.1 (21.0-32.0) meq/L BUN 29 H 32 H 29 H (7-18) mg/dL Creatinine 1.08 H 1.13 H 1.04 H (0.50-1.00) mg/dL Calcium 7.6 L 7.7 L 7.5 L (8.5-10.1) mg/dL Direct Bilirubin 0.7 H (0.0-0.2) mg/dL Indirect Bilirubin 0.5 (0.0-0.8) mg/dL AST 1157 H 531 H 364 H (15-37) U/L ALT 1006 H 841 H 754 H (10-53) U/L Alkaline Phosphatase 101 123 H 240 H (45-117) U/L Total Protein 6.1 L 6.2 L 6.2 L (6.4-8.2) g/dL Albumin 3.1 L 3.0 L 2.9 L (3.4-5.0) g/dL 10/04/18 Range/Units 19:18 Sodium 136 (136-145) meq/L Potassium 4.3 (3.5-5.1) meq/L Chloride 103 (98-107) meq/L Carbon Dioxide 21.3 (21.0-32.0) meq/L BUN 28 H (7-18) mg/dL Creatinine 1.06 H (0.50-1.00) mg/dL Calcium 7.4 L* (8.5-10.1) mg/dL Direct Bilirubin (0.0-0.2) mg/dL Indirect Bilirubin (0.0-0.8) mg/dL AST (15-37) U/L ALT (10-53) U/L Alkaline Phosphatase (45-117) U/L Total Protein 6.2 L (6.4-8.2) g/dL Albumin (3.4-5.0) g/dL Intake and Output 10/04/18 10/04/18 10/04/18 06:59 14:59 22:59 Intake Total 300 / 300 1261 / 1261 Output Total 1025 / 1025 1500 / 1500 Balance -725 / -725 -239 / -239 Intake: IV 151 / 151 Heparin/D5W 25,000 U/250 mL 25, 151 / 151 000 unit In 250 ml @ Per Protocol IV.CONT TITRATE PRN Rx #:[id number] Oral 300 / 300 1110 / 1110 Output: Urine Amount (Catheter) 1025 / 1025 1500 / 1500 Indwelling Temp Sensing 1025 / 1025 1500 / 1500 Catheter Other: # Bowel Movements 0 Weight 84 kg - Imaging and Cardiology Imaging: Impressions Chest X-Ray 10/03/18 06:00 CONCLUSION: 1. Endotracheal tube and nasogastric tube no longer seen. 2. Patchy left lung base atelectasis versus consolidation and mild diffuse hazy bilateral lung opacity. Chest X-Ray 10/04/18 06:00 CONCLUSION: 1. Interval removal of mediastinal chest tube and left-sided chest tube with no pneumothorax. 2. Hazy opacity in both lungs with blunting of the costophrenic angles. This appears mildly increased. Could represent increasing infiltrate and/or effusions. Assessment and Plan - Assessment (1) Unstable angina Code(s): I20.0 - Unstable angina Status: Acute (2) CAD (coronary artery disease), [place] coronary artery Code(s): I25.10 - Atherosclerotic heart disease of [place] coronary artery without angina pectoris Status: Acute (3) Diabetes mellitus Code(s): E11.9 - Type 2 diabetes mellitus without complications Status: Chronic (4) Acute ST elevation myocardial infarction (STEMI) Code(s): I21.3 - ST elevation (STEMI) myocardial infarction of unspecified site Status: Acute - Plan 1) CABG x4 2) Jacqui-procedure STEMI Found to have extensive thrombus in both [place] vessels as well as grafts RAMEY to LAD with competitive flow, most likely will occlude Thrombus in LAD aspirated, distal LAD unable to pass wire past the anastomosis site SVG to OM1/OM2 occluded with extensive thrombus MAXWELL x 2 to [place] OM1 MAXWELL to [place] LCx POBA of [place] OM2 RCA stents patent PDA occluded where it was previously jailed Unable to find SVG to PDA [place] to be small vessel supplying very little territory ASA/Plavix 3) Intubated s/p extubation 4) Hypercoagulable state Appreciate Hematology consultation Most likely anticoagulation/antiplatelet combination on discharge 5) Bedside HAKAN done with Dr. Enriquez EF 45%, inferolateral wall akinetic No significant valvulopathy. Bedside echo EF 40-45% 6) Fluid overload state from 2 units PRBC Agree with diuresis as possible 7) LFTs trending down Concern for acalculous cholecystitis Unable to lay flat for HIDA scan at this time 8) Repeat echo with concern for thrombus in the apex of the RV Con't with anticoagulation
[2018-10-05] MEDS: Morphine Inj 4 MG/ML Vial IV.PUSH PRN ×4 (01:13→20:22)
--- NOTE | 2018-10-05 04:19 | XR ---
EXAM DATE: 10/05/2018 4:05 AM EST AGE/SEX: 58 years / Female INDICATIONS: Shortness of breath. CLINICAL DATA: This is the patient's subsequent encounter. Patient reports that signs and symptoms h ave been present for 1 week and indicates a pain score of Nonresponsive. MEDICAL/SURGICAL HISTORY: . Diabetes. Renal insufficiency. Myocardial infarction. MRSA. CABG. COMPARISON: C, CHEST 1V SINGLE AP, 10/04/2018. . FINDINGS: A single AP semierect view of the chest was obtained and again demonstrates a right internal jugular central venous line in place. The patient is status post median sternotomy. Hazy perihilar and bibasi lar airspace opacities remain. Costophrenic angles are mildly blunted. The heart size remains enlarge d. Bony thorax is otherwise intact. There is overlying electrocardiogram leads and oxygen tubing. CONCLUSION: Apparent mild interval improvement in apparent airspace opacity. Bilateral effusions remain. Electronically signed by: Guilherme Francisco MD 10/05/2018 4:18 AM EST
[2018-10-05 05:43] LABS: Baso % (Auto) 0.3 % (0.0-2.0); Eos # (Auto) 0.2 th/mm3 (0.0-0.4); Eos % (Auto) 1.5 % (0.0-4.0); Hematocrit 28.6 % (35.0-46.0); Hemoglobin 9.6 gm/dL (11.6-15.3); Lymph # (Auto) 2.4 th/mm3 (1.0-4.8); Lymph % (Auto) 23.4 % (9.0-44.0); Mean Corpuscular HGB Conc 33.4 % (32.0-36.0); Mean Corpuscular Hemoglobin 29.6 pg (27.0-34.0); Mean Corpuscular Volume 88.4 fL (80.0-100.0); Mean Platelet Volume 9.2 fL (7.0-11.0); Mono # (Auto) 0.8 th/mm3 (0.0-0.9); Mono % (Auto) 8.3 % (0.0-8.0); Neut # (Auto) 6.7 th/mm3 (1.8-7.7); Neut % (Auto) 66.5 % (16.0-70.0); Platelet Count 120 th/mm3 (150-450); Red Blood Count 3.23 mil/mm3 (4.00-5.30); Red Cell Distribution Width 15.4 % (11.6-17.2); White Blood Count 10.1 th/mm3 (4.0-11.0)
[2018-10-05 06:44] LABS: Albumin 2.7 g/dL (3.4-5.0); Calcium 7.4 mg/dL (8.5-10.1); Carbon Dioxide 21.7 meq/L (21.0-32.0); Magnesium 2.3 mg/dL (1.5-2.5); Phosphorus 2.2 mg/dL (2.5-4.9); Potassium 3.8 meq/L (3.5-5.1); Total Protein 6.2 g/dL (6.4-8.2)
[2018-10-05] MEDS: Insulin NovoLOG Aspart Correctional Sugar Inj SQ SCH ×4 (08:45→21:02)
[2018-10-05] MEDS: Multivitamin/Minerals Therapeutic Tablet PO SCH (09:34)
[2018-10-05] MEDS: Docusate Sodium 100 MG Capsule PO SCH ×2 (09:34→20:50)
[2018-10-05] MEDS: Ranolazine 500 MG 12HR ER Tablet PO SCH ×2 (09:34→20:46)
[2018-10-05] MEDS: Senna/Docusate Sodium 8.6/50 MG Tablet PO SCH ×2 (09:35→20:51)
[2018-10-05] MEDS: Sertraline 50 MG Tablet PO SCH (09:35)
[2018-10-05] MEDS: Polyethylene Glycol 3350 17 GM Packet PO SCH (09:35)
[2018-10-05] MEDS: Mupirocin 2% Nasal Oint Topical Syringe EACH NARE SCH ×2 (09:35→20:46)
[2018-10-05] MEDS: Pantoprazole Inj 40 MG Vial IV.PUSH SCH (09:35)
[2018-10-05] MEDS: Sodium Chloride 0.9% 2 ML Flush BID IV.FLUSH SCH ×2 (09:37→20:51)
[2018-10-05] MEDS ORDERED: Calcium Gluconate Inj 1 GM in Dextrose 5% in Water Inj 100 ML IV.SIG ONE ×2 (11:00)
--- NOTE | 2018-10-05 12:40 | P.PNCC ---
Subjective Subjective Remarks/Hospital Course: This is a 58yF with history of CAD who underwent off-pump CABG x 4 (RAMEY-->LAD, SVG-->OM1, SVG-->OM2, SVG-->PDA). intra-operatively it was noted that she had significant ST elevations. immediately post-operatively, it was noted that she had tombstoning on her EKG. She was taken emergently to the lab tech by Dr. Melissa where she had completely occluded grafts. He stented OM1, LAD. balloon angiopasty to OM2. She arrives back to the CVICU where I met her. She has had 4L crystalloid resuscitation. chest tubes have about 100cc sanguinous output. Of note, she was on a tranexamic acid infusion during the CABG which was started by anesthesia. the patient is intubated and no additional information is available from the patient. ROS unobtainable. I discussed the case with Dr. Melissa and Dr. Campos at bedside: plan to initiate heparin infusion 4 hours post-arterial sheath pull. I also discussed re-evaluation of LV function. Dr. Melissa and I performed HAKAN at bedside which demonstrated lateral and inferolateral hypokinesis, EF 45%, mild TR. 09/30 Patient is awake and alert. On Neosyn 20 mics, Precedex 0.3 and Heparin drip. Afebrile. 10/01 Patient did not tolerate CPAP yesterday, awake and alert. Had T:102.7 yesterday. On Neosyn 20 mics, Precedex 0.2 and Heparin drip. 10/02: Afebrile. Extubated yesterday currently on 3 L nasal cannula. Remains on phenylephrine drip at 30 mcg/min. Heparin drip at 900 units an hour. Heme otology workup currently in process. Speech therapy to evaluate swelling. Out of bed to chair today. 10/03: Overnight received 2 units of PRBC for hemoglobin of 7.4. Became hypoxemic posttransfusion, and had to be placed on partial nonrebreather. Currently remains on partial nonrebreather, chest x-ray shows worsening pulmonary vascular congestion/pulmonary edema. Also it was noted that liver enzymes AST 1157, ALT 1006. Liver ultrasound suggestive of a calculus cholecystitis. I have discontinued Tylenol products, held amiodarone and atorvastatin, requested GI consult. Patient may need cholecystostomy tube placement 10/04: LFTs trending downward. Currently on partial nonrebreather mask. Amiodarone, atorvastatin and acetaminophen all discontinued. On furosemide 40 mg 3 times daily currently. Hepatobiliary scan pending. Subjective 10/05: Currently on nasal cannula. Appears more comfortable exam. Continues with active diuresis with furosemide. LFTs trending downward. Complaining of "". Objective Vital Signs / I&O: Vital Signs 10/04/18 13:13 10/04/18 15:00 10/04/18 19:00 Temperature 98.5 F Pulse Rate 81 82 82 Respiratory Rate 18 24 Blood Pressure 101/66 Pulse Oximetry 98 10/04/18 20:00 10/04/18 20:27 10/04/18 23:00 Temperature 97.9 F 98.7 F Pulse Rate 80 81 82 Respiratory Rate 20 16 22 Blood Pressure 112/64 102/55 L Pulse Oximetry 98 97 98 10/05/18 03:00 10/05/18 07:41 10/05/18 07:45 Temperature 98.1 F 98.3 F Pulse Rate 79 75 75 Respiratory Rate 20 19 16 Blood Pressure 99/55 L 103/72 Pulse Oximetry 98 95 97 10/05/18 08:00 10/05/18 11:00 Temperature 98.2 F Pulse Rate 80 Respiratory Rate 18 Blood Pressure 104/71 Pulse Oximetry 99 97 Intake & Output 10/04/18 10/05/18 10/05/18 18:59 06:59 18:59 Intake Total 1110 / 1110 391 / 391 Output Total 1500 / 1500 1425 / 1425 Balance -390 / -390 -1034 / -1034 Weight 81.5 kg Intake: IV 151 / 151 Heparin/D5W 25,000 U/250 mL 25, 151 / 151 000 unit In 250 ml @ Per Protocol IV.CONT TITRATE PRN Rx #:[id number] Oral 1110 / 1110 240 / 240 Output: Urine Amount (Catheter) 1500 / 1500 1425 / 1425 Indwelling Temp Sensing 1500 / 1500 1425 / 1425 Catheter Other: # Bowel Movements 0 0 Result Diagrams: 10/05/18 05:15 10/05/18 05:15 Other Results: Microbiology 10/01/18 11:39 Blood - Peripheral Aerobic Blood Culture - Preliminary No growth in 4 days 10/01/18 11:39 Blood - Peripheral Anaerobic Blood Culture - Preliminary No growth in 4 days 10/01/18 11:11 Blood - Peripheral Aerobic Blood Culture - Preliminary No growth in 4 days 10/01/18 11:11 Blood - Peripheral Anaerobic Blood Culture - Preliminary No growth in 4 days Imaging: Chest X-Ray 09/23/18 22:38 CONCLUSION: Negative examination. Lower Extremity Ultrasound 09/24/18 00:00 CONCLUSION: Nonvisualization of the greater saphenous vein and portions of the lower legs bilaterally. Venous Doppler Study 09/24/18 00:00 CONCLUSION: Negative study. No venous thrombosis of either lower extremity. Chest X-Ray 09/25/18 10:12 CONCLUSION: No evidence of acute cardiopulmonary process. Carotid Doppler Study 09/28/18 10:09 CONCLUSION: 1. Right Internal Carotid Artery: No significant stenosis or atherosclerotic plaque is visualized. 2. Left Internal Carotid Artery: No significant stenosis or atherosclerotic plaque is visualized. Chest X-Ray 09/29/18 13:35 CONCLUSION: Moderate pulmonary edema. Chest X-Ray 09/30/18 05:00 CONCLUSION: Mild bibasilar atelectasis. Liver Ultrasound 10/01/18 00:00 CONCLUSION: 1. Mild hepatomegaly and steatosis suspected. 2. Gallbladder wall thickening with pericholecystic fluid. In the appropriate clinical setting acalculous cholecystitis may have this appearance. Abdomen/Bladder Ultrasound 10/02/18 00:00 CONCLUSION: 1. Increased echogenicity of the kidneys characteristic of medical renal disease. No hydronephrosis. No perinephric fluid. Barba catheter in bladder, decompressed. Chest X-Ray 10/03/18 06:00 CONCLUSION: 1. Endotracheal tube and nasogastric tube no longer seen. 2. Patchy left lung base atelectasis versus consolidation and mild diffuse hazy bilateral lung opacity. Chest X-Ray 10/04/18 06:00 CONCLUSION: 1. Interval removal of mediastinal chest tube and left-sided chest tube with no pneumothorax. 2. Hazy opacity in both lungs with blunting of the costophrenic angles. This appears mildly increased. Could represent increasing infiltrate and/or effusions. Chest X-Ray 10/05/18 06:00 CONCLUSION: Apparent mild interval improvement in apparent airspace opacity. Bilateral effusions remain. Objective Remarks: GENERAL: Patient is 58 yo female currently on nasal cannula in no acute distress SKIN: Warm and dry. HEAD: Normocephalic. EYES: No scleral icterus. No injection or drainage. NECK: Supple, trachea midline. No JVD or lymphadenopathy. CARDIOVASCULAR: Regular rate and rhythm. S1, S2 normal. Without murmurs, gallops, or rubs. RESPIRATORY: Breath sounds equal bilaterally, initially at the bases with few crackles. Using accessory muscle use. Mediastinal chest tube with serosanguineous output. GASTROINTESTINAL: Abdomen soft, non-tender, nondistended. No tenderness on palpation right upper quadrant MUSCULOSKELETAL: No significant peripheral edema. JUANCHO hose in place. Neuro: Awake and alert cranial nerve 2 through 12 grossly intact. Strength is equal symmetric. Normal sensation. Assessment and Plan - Assessment and Plan Plan: Neuro/psych: Depression -Continue sertraline 50 mg daily -Discontinue acetaminophen with elevated transaminases Resp: Acute hypoxemic respiratory failure Pulmonary edema with hypoxia - Currently on 6 L nasal cannula to keep oxygen saturation above 90%. - Bronchodilators with albuterol/ipratropium aerosols every 6 hours while awake times 2 days with - incentive spirometry while awake. EzPAP - hob elevated. BiPAP if needed - CXR 10/04 a.m. shows worsening pulmonary edema and recheck 10/06 a.m. CV: s/p off-pump CABG x 4 (RAMEY-->LAD, SVG-->OM1, SVG-->OM2, SVG-->PDA) 09/29 Immediate post-op STEMI Post-op Graft thrombosis Developed fluid overload/pulmonary edema posttransfusion 10/03 IV L furosemide 40 mg IV 3 times daily. Discontinued . We will give 1 additional dose tonight Currently off phenylephrine On Heparin drip currently at 900 units per hour Continue ASA, and clopidogrel Hold atorvastatin and amiodarone due to very elevated liver enzymes. Start low-dose beta-blockers if blood pressure remains stable HAKAN post-op: EF 45%, lateral and inferolateral hypokinesis, mild TR chest tubes to suction- monitor CT drainage. Check limited 2D echo left ventricular systolic function is low normal with an estimated ejection fraction in the range of 50- 55%. Normal left ventricular size. Wall thickness is normal. No regional wall motion abnormalities are present. Trace mitral valve regurgitation. Mild thickening of the tricuspid valve leaflets. There is moderate tricuspid regurgitation. The estimated pulmonary arterial pressure is 33 mmHgy Renal: Acute kidney injury - Monitor renal function, I/O's, electrolytes replacement per protocol. Lasix as above Renal ultrasound indicated medical renal disease. Urine sodium was less than 5. Urine creatinine 300. FEN/GI: Transaminitis Probable acalculous cholecystitis -GI consulted, currently following and awaiting for HIDA scan results -Discontinue acetaminophen l, holding atorvastatin and amiodarone -Advance diet as tolerated per speech therapy -On pantoprazole 40mg IV daily -Liver ultrasound revealed edematous gallbladder. No signs of obstructive process. Need HIDA when more stable Cardiology following. Heme/ID: Acute graft thrombosis Normocytic anemia Acute thrombocytopenia Elevated thrombin time -Monitor CBC, coags- on Heparin drip -Negative HIT, positive YARITZA, hexagon all acid weakly positive. Remainder testing negative) -With recommendations hematology. Continue heparin drip, aspirin and clopidogrel ID: -Monitor for signs of infections ( fever, WBC) BC x 2 f/u negative to date - perioperative abx per CTS -s/p cefazolin. Endo: Post-operative hyperglycemia - SSI with accuchecks Prophylaxis: - SCDs - heparin drip as above -Pantoprazole Lines: - 09/29 left radial art line and right IJ cordis with dual-lumen catheter likely discontinued 10/05 - 09/29 Barba likely discontinue today 10/05 Level 2 follow-up
--- NOTE | 2018-10-05 13:49 | P.PNCV ---
- Note Subjective/Hospital Course: sts data discussed with pt RISK SCORES About the STS Risk Calculator Procedure: CAB Only Risk of Mortality: 0.745% Morbidity or Mortality: 8.994% Long Length of Stay: 3.108% Short Length of Stay: 56.144% Permanent Stroke: 0.567% Prolonged Ventilation: 6.252% DSW Infection: 0.387% Renal Failure: 1.922% Reoperation: 3.349% 58-year-old female with a significant history of coronary artery disease the presented to the ED for evaluation of chest pain. Patient has had chest pain for about a week. Per patient is progressively getting worse. She denies any urinary or bowel movement issues. She states that the pain gets worse with stress and movement. She took 4 nitro with minimal improvement of the symptoms which was what prompted her evaluation. Patient was admitted recently in July for evaluation of similar. She had another heart cath that showed . Significant multivessel disease, although overall small vessels. She did not had stenting at that time and they thought that she could have increase of her medications and may be this will help with her symptoms but she continues to have symptoms. PMH: CAD/ [place]/ Stents/ HTN, HLP, DM insulin dependent EF 58% 09/26 pt on heparin gtt, 3 mcq of NTG will resume imdur and dc NTG, pt pain free eval PRU in am for timing of surgery off Brilinta since Thursday 09/27 off NTG gtt / on imdur/ heparin gtt, painfree PRU>250 stable for surgery on 09/28 doing well, no chest pain during the night on heparin gtt stable for surgery in am 09/29 SURGICAL PROCEDURE 1. Urgent Off-pump Coronary Artery Bypass Grafting x 4 with Left Internal Mammary Artery (RAMEY) to Left Anterior Descending (LAD), reverse saphenous vein graft to obtuse Marginal1 and sequentially to the Obtuse Marginal 2 branches of the left Circumflex artery, reverse saphenous vein graft to the posterior Descending branch of the right Coronary artery 2. Left leg Endoscopic Vein [place] 3. Intraoperative Vein Mapping. 09/30 Clinically and hemodynamic is stable Events noted with hyper acute thrombosis of all the grafts. PCI to the circumflex distribution Greatly appreciate Dr. Melissa and Dr. Enriquez's assistance in her care Wean to extubate today Presently on aspirin Plavix and heparin drip. Will defer to Dr. Melissa regarding long-term antiplatelet therapy Greatly appreciate Dr. Curry's input regarding further workup of her thrombotic state 10/01 Doing well this morning Awake alert oriented and responds appropriately verbal commands Weaning ventilator with plans to extubate today Hemodynamically stable Maintain chest tubes to drainage for now 10/02 Remains weak Not taking deep breaths or coughing Needs PT OT and incentive spirometry Likely DC chest tubes in a.m. once she has gotten out of bed 10/03 minimal drainage in chest tube will dc today / heparin off to remove chest tubes, then resume weak, sleepy , will dc narcotics for now elevated LFT tylenol , amiodarone and statin held ammonia level 53 yesterday on partial NRB, needs aggressive pulm toileting OOB with assistance/ PT 10/04 remains on partial NRB mask diuresis increased PLT 83, continue ASA, plavix and heparin gtt for now with recent acute graft closure await final decision regarding NOAC on pt / was on Brilinta before surgery 10/05 up in chair, now on nasal cannula PLT improving 120 awake input from cardiology and Heme/ concerning oral anticoagulation/ continue PT/OT eval for transfer from CVICU in am Objective: Vital Signs - 24 hr 10/04/18 15:00 10/04/18 19:00 10/04/18 20:00 Temperature 98.5 F 97.9 F Pulse Rate 82 82 80 Respiratory Rate 24 20 Blood Pressure 101/66 112/64 Pulse Oximetry 98 98 10/04/18 20:27 10/04/18 23:00 10/05/18 03:00 Temperature 98.7 F 98.1 F Pulse Rate 81 82 79 Respiratory Rate 16 22 20 Blood Pressure 102/55 L 99/55 L Pulse Oximetry 97 98 98 10/05/18 07:41 10/05/18 07:45 10/05/18 08:00 Temperature 98.3 F Pulse Rate 75 75 Respiratory Rate 19 16 Blood Pressure 103/72 Pulse Oximetry 95 97 99 10/05/18 11:00 Temperature 98.2 F Pulse Rate 80 Respiratory Rate 18 Blood Pressure 104/71 Pulse Oximetry 97 GENERAL: A&O x 3 SKIN: Warm and dry. prevena dressing to chest, incision intact to left leg HEAD: Normocephalic. EYES: No scleral icterus. No injection or drainage. NECK: Supple, trachea midline. No JVD or lymphadenopathy. CARDIOVASCULAR: Regular rate and rhythm without murmurs, gallops, or rubs. RESPIRATORY: Breath sounds equal bilaterally. No accessory muscle use. diminished in bases, few crackles GASTROINTESTINAL: Abdomen soft, non-tender, nondistended. MUSCULOSKELETAL: No cyanosis, or edema. BACK: Nontender without obvious deformity. No CVA tenderness. Labs: Laboratory Results - last 12 hr 10/05/18 10/05/18 10/05/18 05:15 05:15 05:15 WBC 10.1 RBC 3.23 L Hgb 9.6 L Hct 28.6 L MCV 88.4 MCH 29.6 MCHC 33.4 RDW 15.4 Plt Count 120 L D MPV 9.2 Neut % (Auto) 66.5 Lymph % (Auto) 23.4 [place] % (Auto) 8.3 H Eos % (Auto) 1.5 Baso % (Auto) 0.3 Neut # (Auto) 6.7 Lymph # (Auto) 2.4 [place] # (Auto) 0.8 Eos # (Auto) 0.2 Baso # (Auto) 0.0 WBC Differential . Differential Comment Auto diff final APTT Sodium 136 Potassium 3.8 Chloride 103 Carbon Dioxide 21.7 Anion Gap 11 BUN 24 H Creatinine 1.07 H Estimated GFR 64 L POC Glucose Random Glucose 152 H Calcium 7.4 L* Prot Corrected Calcium 7.9 L Phosphorus 2.2 L Magnesium 2.3 Total Bilirubin 1.2 H AST 234 H ALT 552 H Alkaline Phosphatase 400 H Ammonia 56 H Total Protein 6.2 L Albumin 2.7 L 10/05/18 10/05/18 10/05/18 05:15 07:49 11:24 WBC RBC Hgb Hct MCV MCH MCHC RDW Plt Count MPV Neut % (Auto) Lymph % (Auto) [place] % (Auto) Eos % (Auto) Baso % (Auto) Neut # (Auto) Lymph # (Auto) [place] # (Auto) Eos # (Auto) Baso # (Auto) WBC Differential Differential Comment APTT 49.8 H Sodium Potassium Chloride Carbon Dioxide Anion Gap BUN Creatinine Estimated GFR POC Glucose 202 H 190 H Random Glucose Calcium Prot Corrected Calcium Phosphorus Magnesium Total Bilirubin AST ALT Alkaline Phosphatase Ammonia Total Protein Albumin Result Diagrams: 10/05/18 05:15 10/05/18 05:15 Telemetry: NSR - Plan (1) S/P coronary artery bypass graft x 4 Plan: off statin, amiodarone 2/2 elevated LFT OOB to chair remains off pressors, on nasal cannula / diuresing well / improving CXR / remains on ASA, Plavix , heparin gtt dc Fred and CVC line , and woods cath (2) Renal insufficiency Plan: indices improving (3) CAD (coronary artery disease), [place] coronary artery Plan: ASA, Heparin gtt (4) Diabetes mellitus Plan: diabetic diet insulin sliding scale HGB A1C 8.6 (5) Subsequent non-ST elevation (NSTEMI) myocardial infarction Plan: Left heart catheterization, coronary angiogram, bypass angiogram, complex case, moderate sedation at 128 minutes, [place] drug-eluting stent x2 (proximal 2 x 12, mid 2 x 30) to first obtuse marginal, balloon angioplasty of the second obtuse marginal, [place] drug-eluting stent (2 x 30) to mid left circumflex, aspiration thrombectomy of LAD. (6) Unstable angina Plan: pain free at this time (7) Elevated LFTs Plan: tylenol dc amiodarone dc statin dc f/u levels improving GI consulted US calculus cholecystitis / Hida scan when more stable hold on kishan drain for now
--- NOTE | 2018-10-05 14:08 | P.PNONC ---
Subjective Interval history: Afebrile, patient sitting in recliner, no acute distress. Currently on O2 via nasal cannula, she reports her breathing is improved. Patient denies any bleeding, except small amount from nose. Objective Vital Signs/Intake & Output: Vital Signs 10/04/18 15:00 10/04/18 19:00 10/04/18 20:00 Temperature 98.5 F 97.9 F Pulse Rate 82 82 80 Respiratory Rate 24 20 Blood Pressure 101/66 112/64 Pulse Oximetry 98 98 10/04/18 20:27 10/04/18 23:00 10/05/18 03:00 Temperature 98.7 F 98.1 F Pulse Rate 81 82 79 Respiratory Rate 16 22 20 Blood Pressure 102/55 L 99/55 L Pulse Oximetry 97 98 98 10/05/18 07:41 10/05/18 07:45 10/05/18 08:00 Temperature 98.3 F Pulse Rate 75 75 Respiratory Rate 19 16 Blood Pressure 103/72 Pulse Oximetry 95 97 99 10/05/18 11:00 Temperature 98.2 F Pulse Rate 80 Respiratory Rate 18 Blood Pressure 104/71 Pulse Oximetry 97 Intake & Output 10/04/18 10/05/18 10/05/18 18:59 06:59 18:59 Intake Total 1110 / 1110 391 / 391 Output Total 1500 / 1500 1425 / 1425 Balance -390 / -390 -1034 / -1034 Weight 81.5 kg Intake: IV 151 / 151 Heparin/D5W 25,000 U/250 mL 25, 151 / 151 000 unit In 250 ml @ Per Protocol IV.CONT TITRATE PRN Rx #:[id number] Oral 1110 / 1110 240 / 240 Output: Urine Amount (Catheter) 1500 / 1500 1425 / 1425 Indwelling Temp Sensing 1500 / 1500 1425 / 1425 Catheter Other: # Bowel Movements 0 0 Result Diagrams: 10/05/18 05:15 10/05/18 05:15 Laboratory Results: Laboratory Results - last 24 hr 10/04/18 10/04/18 10/04/18 16:27 19:18 20:56 WBC RBC Hgb Hct MCV MCH MCHC RDW Plt Count MPV Neut % (Auto) Lymph % (Auto) [place] % (Auto) Eos % (Auto) Baso % (Auto) Neut # (Auto) Lymph # (Auto) [place] # (Auto) Eos # (Auto) Baso # (Auto) WBC Differential Differential Comment APTT Sodium 136 Potassium 4.3 Chloride 103 Carbon Dioxide 21.3 Anion Gap 12 BUN 28 H Creatinine 1.06 H Estimated GFR 65 L POC Glucose 112 H 214 H Random Glucose 178 H Calcium 7.4 L* Prot Corrected Calcium 7.9 L Phosphorus Magnesium Total Bilirubin AST ALT Alkaline Phosphatase Ammonia Total Protein 6.2 L Albumin 10/05/18 10/05/18 10/05/18 05:15 05:15 05:15 WBC 10.1 RBC 3.23 L Hgb 9.6 L Hct 28.6 L MCV 88.4 MCH 29.6 MCHC 33.4 RDW 15.4 Plt Count 120 L D MPV 9.2 Neut % (Auto) 66.5 Lymph % (Auto) 23.4 [place] % (Auto) 8.3 H Eos % (Auto) 1.5 Baso % (Auto) 0.3 Neut # (Auto) 6.7 Lymph # (Auto) 2.4 [place] # (Auto) 0.8 Eos # (Auto) 0.2 Baso # (Auto) 0.0 WBC Differential . Differential Comment Auto diff final APTT Sodium 136 Potassium 3.8 Chloride 103 Carbon Dioxide 21.7 Anion Gap 11 BUN 24 H Creatinine 1.07 H Estimated GFR 64 L POC Glucose Random Glucose 152 H Calcium 7.4 L* Prot Corrected Calcium 7.9 L Phosphorus 2.2 L Magnesium 2.3 Total Bilirubin 1.2 H AST 234 H ALT 552 H Alkaline Phosphatase 400 H Ammonia 56 H Total Protein 6.2 L Albumin 2.7 L 10/05/18 10/05/18 10/05/18 05:15 07:49 11:24 WBC RBC Hgb Hct MCV MCH MCHC RDW Plt Count MPV Neut % (Auto) Lymph % (Auto) [place] % (Auto) Eos % (Auto) Baso % (Auto) Neut # (Auto) Lymph # (Auto) [place] # (Auto) Eos # (Auto) Baso # (Auto) WBC Differential Differential Comment APTT 49.8 H Sodium Potassium Chloride Carbon Dioxide Anion Gap BUN Creatinine Estimated GFR POC Glucose 202 H 190 H Random Glucose Calcium Prot Corrected Calcium Phosphorus Magnesium Total Bilirubin AST ALT Alkaline Phosphatase Ammonia Total Protein Albumin Culture Results: Microbiology 10/01/18 11:39 Aerobic Blood Culture - Preliminary Blood - Peripheral No growth in 4 days Anaerobic Blood Culture - Preliminary No growth in 4 days 10/01/18 11:11 Aerobic Blood Culture - Preliminary Blood - Peripheral No growth in 4 days Anaerobic Blood Culture - Preliminary No growth in 4 days Imaging Studies: Impressions Chest X-Ray 10/05/18 06:00 CONCLUSION: Apparent mild interval improvement in apparent airspace opacity. Bilateral effusions remain. Medications: Active Medications Generic Name Dose Route Start Last Admin Trade Name Freq PRN Reason Stop Dose Admin Al Hydroxide/Mg Hydroxide 30 ml 10/02/18 09:00 10/05/18 10:16 Milk Of Nils Liq PO Not Given DAILY ESTELLE Albuterol 1 ampul 09/29/18 13:35 10/03/18 23:27 Duoneb Neb (Prn) NEB 1 ampul Q2HR NEB PRN Administration WHEEZING Albuterol 1 ampul 10/04/18 14:00 10/05/18 07:38 Duoneb Neb (Estelle) NEB 10/06/18 13:59 1 ampul Q6HR WHILE AWAKE NEB ESTELLE Administration Amiodarone HCl 200 mg 09/29/18 21:00 10/02/18 20:05 Cordarone PO 200 mg Q12HR ESTELLE Administration Aspirin 81 mg 09/30/18 09:00 10/05/18 09:35 Aspirin Chew PO 81 mg DAILY ESTELLE Administration Atorvastatin Calcium 20 mg 09/25/18 21:00 10/02/18 20:05 Lipitor PO 20 mg HS ESTELLE Administration Clopidogrel Bisulfate 75 mg 09/30/18 09:00 10/05/18 09:34 Plavix PO 75 mg DAILY ESTELLE Administration Docusate Sodium 100 mg 10/02/18 21:00 10/05/18 09:34 Colace PO 100 mg BID ESTELLE Administration Magnesium Sulfate 2 gm/ Sodium 100 mls @ 50 mls/hr 09/29/18 13:35 10/01/18 12 :00 Chloride IV.SIG Infused PRN PRN Infusion SEE LABEL COMMENTS Phenylephrine HCl 40 mg/ 500 mls @ 30 mls/hr 09/29/18 13:35 10/03/18 07:00 Sodium Chloride IV.CONT 0 mcg/min TITRATE PRN 0 mls/hr See Protocol Titration Protocol 40 MCG/MIN Potassium Chloride 20 meq in 100 mls @ 50 mls/hr 09/29/18 13:35 10/01/18 16: 31 Kcl 20 Meq Premix Inj IV.SIG Infused PRN PRN Infusion SEE LABEL COMMENTS Potassium Chloride 20 meq in 100 mls @ 50 mls/hr 09/29/18 13:35 09/30/18 01: 35 Kcl 20 Meq Premix Inj IV.SIG Infused PRN PRN Infusion SEE LABEL COMMENTS Heparin Sodium/Dextrose 25,000 unit in 250 mls @ 0 mls/hr 09/30/18 00:44 10:58 Heparin/D5w 25,000 U/250 Ml IV.CONT 0 units/hr TITRATE PRN 0 mls/hr Per Protocol Titration Protocol Per Protocol Insulin Aspart 0 unit 10/03/18 12:00 10/05/18 12:06 Novolog Insulin Correctional Sugar Inj SQ 9 unit ACHS ESTELLE Administration Protocol Isosorbide Mononitrate 30 mg 09/24/18 09:00 09/30/18 12:01 Imdur PO Not Given DAILY ESTELLE Morphine Sulfate 2 mg 10/03/18 11:56 10/05/18 09:38 Morphine Inj IV.PUSH 2 mg Q4H PRN Administration Acute Pain 1-10 Multivitamins/Minerals 1 tab 10/02/18 09:00 10/05/18 09:34 Theragran-M PO 1 tab DAILY ESTELLE Administration Mupirocin 1 applicatio 10/02/18 21:00 10/05/18 09:35 Bactroban 2% Nasal Oint EACH NARE 1 applicatio BID ESTELLE Administration Pantoprazole Sodium 40 mg 09/30/18 11:00 10/05/18 09:35 Protonix Inj IV.PUSH 40 mg DAILY ESTELLE Administration Polyethylene Glycol 17 gm 10/03/18 09:00 10/05/18 09:35 Miralax PO 17 gm DAILY ESTELLE Administration Ranolazine 500 mg 09/24/18 09:00 10/05/18 09:34 Ranexa PO 500 mg Q12H ESTELLE Administration Senna/Docusate Sodium 1 tab 09/24/18 09:00 10/05/18 09:35 Jacqui-Colace PO 1 tab BID ESTELLE Administration Sennosides 8.6 mg 10/02/18 21:00 10/04/18 21:12 Senokot PO 8.6 mg HS ESTELLE Administration Sertraline HCl 50 mg 09/24/18 09:00 10/05/18 09:35 Zoloft PO 50 mg DAILY ESTELLE Administration Sodium Chloride 2 ml 09/24/18 09:00 10/05/18 09:37 Ns Flush IV.FLUSH 2 ml BID ESTELLE Administration Temazepam 7.5 mg 09/24/18 21:00 10/04/18 21:14 Restoril PO Not Given HS ESTELLE Throat Lozenges 2 spray 10/04/18 17:48 10/04/18 21:15 Chloraseptic [place] OROPHARYNG 2 spray Q2H PRN Administration SORE THROAT Objective Remarks: GENERAL: Critically ill-appearing female patient in no acute distress. SKIN: Warm, diaphoretic. Surgical dressing sternum. HEAD: Normocephalic. EYES: No scleral icterus. No injection or drainage. NECK: Supple, trachea midline. Rt central line. CARDIOVASCULAR: Distant heart sounds. RESPIRATORY: Anterior breath sounds clear, equal bilaterally. Chest tubes have been removed. Dressing dry/intact. O2 via nasal cannula. GASTROINTESTINAL: Abdomen large, soft, non-tender, nondistended. EXTREMITIES: No cyanosis, or edema. MUSCULOSKELETAL: Adequate muscle tone. NEUROLOGICAL: No obvious focal deficit. Awake, alert. PSYCHIATRIC: Appropriate mood and affect. Assessment/Plan - Plan Ms. Lira is a critically ill 58-year-old female patient who underwent urgent off-pump coronary artery bypass grafting x4 on 09/29/2018. The patient suffered occlusions of the graft within hours of undergoing surgery and she underwent left heart catheterization which revealed significant thrombus formation within the saphenous venous graft to the first and second obtuse marginals, additional thrombus had developed along the left anterior descending artery. The arterial thrombosis within the graft occurred while the patient was on antiplatelet agents. Hematology was consulted to rule out prothrombotic condition. Recommendations: 1. 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 HIT MOE negative. YARITZA + (low dose 0.1- 59 %, low dose 0.5-60%, high dose-14%). Prothrombin mutation not detected. Patient now with questionable thrombus in her right ventricle. 2. Heparin-induced thrombocytopenia, with positive YARITZA. Discontinue all heparin products. Initiate argatroban drip. 3. Hemoglobin 9.6 today, platelets have increased to 120,000. 4. Liver enzymes improving, AST 1157-->234, ALT 1006-->552, alk phos 240--> 400. liver ultrasound suggestive of calculus cholecystitis, GI has been consulted, recommended HIDA scan once patient more stable. Tylenol products, amiodarone and atorvastatin held per attending. 5. Avoid all heparin like products.
[2018-10-05] MEDS ORDERED: ARGATROBAN 250 MG/2.5 ML IV.CONT SCH (14:30)
[2018-10-05] MEDS ORDERED: Argatroban Inj 250 MG in Sodium Chlor 0.9% Inj 247.5 ML IV.CONT PRN (16:30)
--- NOTE | 2018-10-05 16:34 | P.PNGI ---
Subjective Interval history: She is resting in the bed more alert today does note some right upper quadrant discomfort to light palpation labs reviewed current hemoglobin 9.6 no obvious bleeding AST 234 ALT 552 <Amairani Brown - Last Filed: 10/05/18 16:30> Physical Exam Vital signs: Vital Signs 10/04/18 19:00 10/04/18 20:00 10/04/18 20:27 Temperature 97.9 F Pulse Rate 82 80 81 Respiratory Rate 20 16 Blood Pressure 112/64 Pulse Oximetry 98 97 10/04/18 23:00 10/05/18 03:00 10/05/18 07:41 Temperature 98.7 F 98.1 F Pulse Rate 82 79 75 Respiratory Rate 22 20 19 Blood Pressure 102/55 L 99/55 L Pulse Oximetry 98 98 95 10/05/18 07:45 10/05/18 08:00 10/05/18 11:00 Temperature 98.3 F 98.2 F Pulse Rate 75 80 Respiratory Rate 16 18 Blood Pressure 103/72 104/71 Pulse Oximetry 97 95 97 10/05/18 13:40 10/05/18 15:00 Temperature 98.1 F Pulse Rate 76 73 Respiratory Rate 17 18 Blood Pressure 89/65 L Pulse Oximetry 98 Intake & Output 10/04/18 10/05/18 10/05/18 18:59 06:59 18:59 Intake Total 1110 / 1110 391 / 391 380 / 380 Output Total 1500 / 1500 1425 / 1425 Balance -390 / -390 -1034 / -1034 380 / 380 Weight 81.5 kg Intake: IV 151 / 151 380 / 380 Heparin/D5W 25,000 U/250 mL 25, 151 / 151 270 / 270 000 unit In 250 ml @ Per Protocol IV.CONT TITRATE PRN Rx #:[id number] Calcium Gluconate Inj 1 GM In 110 / 110 D5W Inj 100 ML @ 110 mls/hr IV. SIG ONCE ONE Rx#:[id number] Oral 1110 / 1110 240 / 240 Output: Urine Amount (Catheter) 1500 / 1500 1425 / 1425 Indwelling Temp Sensing 1500 / 1500 1425 / 1425 Catheter Other: Date of Last Bowel Movement 10/05/18 # Bowel Movements 0 0 - Constitutional moderate distress, cooperative - Routine HEENT Exam Head: Present: normocephalic ENT: Present: mucous membranes moist - Routine Respiratory Exam Present: distant breath sounds, diminished air movement - Routine Cardiovascular Exam Present: S1, S2 - Routine Abdominal Exam Present: normoactive bowel sounds (Soft mild tenderness and mild distention right upper quadrant) - Routine Skin Exam Present: intact (Chest incision status post CABG), pallor - Urinary Catheter Management Indwelling Temp Sensing Catheter Cath placed during this visit: yes Reason for continuing: Hourly intake/output Insertion date: 09/29/18 Insertion time: 08:30 <Amairani Brown - Last Filed: 10/05/18 16:30> Vital signs: Vital Signs 10/04/18 23:00 10/05/18 03:00 10/05/18 07:41 Temperature 98.7 F 98.1 F Pulse Rate 82 79 75 Respiratory Rate 22 20 19 Blood Pressure 102/55 L 99/55 L Pulse Oximetry 98 98 95 10/05/18 07:45 10/05/18 08:00 10/05/18 11:00 Temperature 98.3 F 98.2 F Pulse Rate 75 80 Respiratory Rate 16 18 Blood Pressure 103/72 104/71 Pulse Oximetry 97 95 97 10/05/18 13:40 10/05/18 15:00 Temperature 98.1 F Pulse Rate 76 73 Respiratory Rate 17 18 Blood Pressure 89/65 L Pulse Oximetry 98 Intake & Output 10/05/18 10/05/18 10/06/18 06:59 18:59 06:59 Intake Total 391 / 391 1405 / 1405 Output Total 1425 / 1425 855 / 855 Balance -1034 / -1034 550 / 550 Weight 81.5 kg Intake: IV 151 / 151 380 / 380 Heparin/D5W 25,000 U/250 mL 25, 151 / 151 270 / 270 000 unit In 250 ml @ Per Protocol IV.CONT TITRATE PRN Rx #:[id number] Calcium Gluconate Inj 1 GM In 110 / 110 D5W Inj 100 ML @ 110 mls/hr IV. SIG ONCE ONE Rx#:[id number] Oral 240 / 240 1025 / 1025 Output: Urine Amount (Catheter) 1425 / 1425 855 / 855 Indwelling Temp Sensing 1425 / 1425 855 / 855 Catheter Other: Date of Last Bowel Movement 10/05/18 # Bowel Movements 0 3 - Urinary Catheter Management Indwelling Temp Sensing Catheter Cath placed during this visit: no <Golden Renteria - Last Filed: 10/05/18 20:47> Results - Labs CBC & Chem 7: 10/05/18 05:15 10/05/18 05:15 Laboratory Results - last 24 hr 10/04/18 10/04/18 10/04/18 16:27 19:18 20:56 WBC RBC Hgb Hct MCV MCH MCHC RDW Plt Count MPV Neut % (Auto) Lymph % (Auto) [place] % (Auto) Eos % (Auto) Baso % (Auto) Neut # (Auto) Lymph # (Auto) [place] # (Auto) Eos # (Auto) Baso # (Auto) WBC Differential Differential Comment APTT Sodium 136 Potassium 4.3 Chloride 103 Carbon Dioxide 21.3 Anion Gap 12 BUN 28 H Creatinine 1.06 H Estimated GFR 65 L POC Glucose 112 H 214 H Random Glucose 178 H Calcium 7.4 L* Prot Corrected Calcium 7.9 L Phosphorus Magnesium Total Bilirubin AST ALT Alkaline Phosphatase Ammonia Total Protein 6.2 L Albumin 10/05/18 10/05/18 10/05/18 05:15 05:15 05:15 WBC 10.1 RBC 3.23 L Hgb 9.6 L Hct 28.6 L MCV 88.4 MCH 29.6 MCHC 33.4 RDW 15.4 Plt Count 120 L D MPV 9.2 Neut % (Auto) 66.5 Lymph % (Auto) 23.4 [place] % (Auto) 8.3 H Eos % (Auto) 1.5 Baso % (Auto) 0.3 Neut # (Auto) 6.7 Lymph # (Auto) 2.4 [place] # (Auto) 0.8 Eos # (Auto) 0.2 Baso # (Auto) 0.0 WBC Differential . Differential Comment Auto diff final APTT Sodium 136 Potassium 3.8 Chloride 103 Carbon Dioxide 21.7 Anion Gap 11 BUN 24 H Creatinine 1.07 H Estimated GFR 64 L POC Glucose Random Glucose 152 H Calcium 7.4 L* Prot Corrected Calcium 7.9 L Phosphorus 2.2 L Magnesium 2.3 Total Bilirubin 1.2 H AST 234 H ALT 552 H Alkaline Phosphatase 400 H Ammonia 56 H Total Protein 6.2 L Albumin 2.7 L 10/05/18 10/05/18 10/05/18 05:15 07:49 11:24 WBC RBC Hgb Hct MCV MCH MCHC RDW Plt Count MPV Neut % (Auto) Lymph % (Auto) [place] % (Auto) Eos % (Auto) Baso % (Auto) Neut # (Auto) Lymph # (Auto) [place] # (Auto) Eos # (Auto) Baso # (Auto) WBC Differential Differential Comment APTT 49.8 H Sodium Potassium Chloride Carbon Dioxide Anion Gap BUN Creatinine Estimated GFR POC Glucose 202 H 190 H Random Glucose Calcium Prot Corrected Calcium Phosphorus Magnesium Total Bilirubin AST ALT Alkaline Phosphatase Ammonia Total Protein Albumin Microbiology 10/01/18 11:39 Blood - Peripheral Aerobic Blood Culture - Preliminary No growth in 4 days 10/01/18 11:39 Blood - Peripheral Anaerobic Blood Culture - Preliminary No growth in 4 days 10/01/18 11:11 Blood - Peripheral Aerobic Blood Culture - Preliminary No growth in 4 days 10/01/18 11:11 Blood - Peripheral Anaerobic Blood Culture - Preliminary No growth in 4 days - Imaging Impressions Chest X-Ray 10/05/18 06:00 CONCLUSION: Apparent mild interval improvement in apparent airspace opacity. Bilateral effusions remain. - Procedures None <Amairani Brown - Last Filed: 10/05/18 16:30> - Labs CBC & Chem 7: 10/05/18 05:15 10/05/18 05:15 Laboratory Results - last 24 hr 10/04/18 10/04/18 10/05/18 19:18 20:56 05:15 WBC 10.1 RBC 3.23 L Hgb 9.6 L Hct 28.6 L MCV 88.4 MCH 29.6 MCHC 33.4 RDW 15.4 Plt Count 120 L D MPV 9.2 Neut % (Auto) 66.5 Lymph % (Auto) 23.4 [place] % (Auto) 8.3 H Eos % (Auto) 1.5 Baso % (Auto) 0.3 Neut # (Auto) 6.7 Lymph # (Auto) 2.4 [place] # (Auto) 0.8 Eos # (Auto) 0.2 Baso # (Auto) 0.0 WBC Differential . Differential Comment Auto diff final APTT Sodium 136 Potassium 4.3 Chloride 103 Carbon Dioxide 21.3 Anion Gap 12 BUN 28 H Creatinine 1.06 H Estimated GFR 65 L POC Glucose 214 H Random Glucose 178 H Calcium 7.4 L* Prot Corrected Calcium 7.9 L Phosphorus Magnesium Total Bilirubin AST ALT Alkaline Phosphatase Ammonia Total Protein 6.2 L Albumin 10/05/18 10/05/18 10/05/18 05:15 05:15 05:15 WBC RBC Hgb Hct MCV MCH MCHC RDW Plt Count MPV Neut % (Auto) Lymph % (Auto) [place] % (Auto) Eos % (Auto) Baso % (Auto) Neut # (Auto) Lymph # (Auto) [place] # (Auto) Eos # (Auto) Baso # (Auto) WBC Differential Differential Comment APTT 49.8 H Sodium 136 Potassium 3.8 Chloride 103 Carbon Dioxide 21.7 Anion Gap 11 BUN 24 H Creatinine 1.07 H Estimated GFR 64 L POC Glucose Random Glucose 152 H Calcium 7.4 L* Prot Corrected Calcium 7.9 L Phosphorus 2.2 L Magnesium 2.3 Total Bilirubin 1.2 H AST 234 H ALT 552 H Alkaline Phosphatase 400 H Ammonia 56 H Total Protein 6.2 L Albumin 2.7 L 10/05/18 10/05/18 10/05/18 07:49 11:24 16:51 WBC RBC Hgb Hct MCV MCH MCHC RDW Plt Count MPV Neut % (Auto) Lymph % (Auto) [place] % (Auto) Eos % (Auto) Baso % (Auto) Neut # (Auto) Lymph # (Auto) [place] # (Auto) Eos # (Auto) Baso # (Auto) WBC Differential Differential Comment APTT Sodium Potassium Chloride Carbon Dioxide Anion Gap BUN Creatinine Estimated GFR POC Glucose 202 H 190 H 103 Random Glucose Calcium Prot Corrected Calcium Phosphorus Magnesium Total Bilirubin AST ALT Alkaline Phosphatase Ammonia Total Protein Albumin Microbiology 10/01/18 11:39 Blood - Peripheral Aerobic Blood Culture - Preliminary No growth in 4 days 10/01/18 11:39 Blood - Peripheral Anaerobic Blood Culture - Preliminary No growth in 4 days 10/01/18 11:11 Blood - Peripheral Aerobic Blood Culture - Preliminary No growth in 4 days 10/01/18 11:11 Blood - Peripheral Anaerobic Blood Culture - Preliminary No growth in 4 days - Imaging Impressions Chest X-Ray 10/05/18 06:00 CONCLUSION: Apparent mild interval improvement in apparent airspace opacity. Bilateral effusions remain. <Golden Renteria - Last Filed: 10/05/18 20:47> Assessment and Plan (1) Elevated LFTs Status: Acute Code(s): R94.5 - Abnormal results of liver function studies - Plan This patient is a 58-year-old female with a past medical history significant for coronary artery disease and diabetes mellitus. Patient presented to the emergency room at [facility] on 09/24/2018 with complaint of chest pain for 1 week. 09/29/2018 patient underwent coronary artery bypass grafting x 4. Patient presently on heparin drip and aspirin. Patient extubated on nonrebreather mask sinus rhythm in the 70s BP 122/70 saturation 95-96%. Our service has been consulted to evaluate patient's elevated liver enzymes. Total bilirubin 0.5 AST 1157 ALT 1006 alk phos 101 ammonia 53. Upon consultation patient reports surgical history significant for hysterectomy , carpal tunnel surgery and right shoulder surgery. Patient denies any nausea or vomiting or diarrhea. She denies any known family history for gastrointestinal disorders. States last EGD was 10 years ago where she was tested positive for H. pylori. Patient denies ever having had a colonoscopy in the past. She reports having 1 daily BM that is soft and brown without any noted bleeding. Elevated liver enzymes 10/03/2018 total bilirubin 1.2 direct bilirubin 0.7 and direct 0.5 AST 1157 ALT 1006 alk phos 101 Hemoglobin 10.0 hematocrit 28.7. 10/01/2018 liver ultrasound revealed the following findings: 1. Mild hepatomegaly and steatosis suspected. 2. Gallbladder wall thickening with pericholecystic fluid. In the appropriate clinical setting acalculous cholecystitis may have this appearance. 10/04/2018, care setting but is getting up out of bed into chair this early a.m. with physical therapy. Continues on heparin drip and tolerating liquid diet. Current labs reviewed which show hemoglobin 10.1 which is probably acute on chronic anemia since she is status post CABG. WBC count 8.3. Current bilirubin decreased to 1.1, decreased AST 364 decreased ALT 754 increased alkaline [place] 240. Patient has recommendations from speech therapy for full liquids and thin liquids. Okay from a GI standpoint patient does note generalized chest tenderness but no acute right upper quadrant pain for now. IR initially consulted on 10/03/2018 for cholecystotomy tube, but felt it was not necessary at this time due to patient's normal white count and no obvious infection. A calculus cholecystitis, probable will need HIDA scan when she is stable. Also recommend possible EGD colonoscopy once patient is better and out of the hospital. Other causes of elevated LFTs could be related to medications, note amiodarone Tylenol and atorvastatin were discontinued, possible cholecystitis, no obvious infection noted. 10/05/2018 patient continues to improve in the intensive care setting more alert today right upper quadrant discomfort but no obvious nausea or vomiting labs reviewed showing hemoglobin 9.6 bilirubin 1.2 AST 234 ALT 552 alkaline phosphatase 400 ammonia level 56. Once patient is stable from her CABG and out of the intensive care she will need further evaluation for cholecystitis, and needs continuous monitoring of her LFTs Plan Diet as tolerated per attending PPI Bowel regimen Monitor labs, with special attention to LFTs Supportive care Further recommendations to follow Patient was seen per myself and Dr. Renteria, note was written on his behalf <Amairani Brown - Last Filed: 10/05/18 16:30> (1) Elevated LFTs Status: Acute Code(s): R94.5 - Abnormal results of liver function studies - Plan Agree with above note and plan, continue supportive care, will monitor liver function test, seems to be improving <Golden Renteria - Last Filed: 10/05/18 20:47>
[2018-10-05] MEDS: FONDAPARINUX 7.5 MG/0.6 ML SQ SCH (17:11)
--- NOTE | 2018-10-05 23:25 | P.PNCA ---
Subjective Interval history: On nasal canula, appear more comfortable No complaints Family at the bedside Medications and Allergies Active Medications: Active Medications Al Hydroxide/Mg Hydroxide (Milk Of [place] Liq) 30 ml PO DAILY [facility] Last Admin: 10/05/18 10:16 Dose: Not Given Albuterol (Duoneb Neb (Prn)) 1 ampul NEB Q2HR NEB PRN PRN Reason: WHEEZING Last Admin: 10/03/18 23:27 Dose: 1 ampul Albuterol (Duoneb Neb (Estelle)) 1 ampul NEB Q6HR WHILE AWAKE NEB [facility] Stop: 10/06/18 13:59 Last Admin: 10/05/18 20:14 Dose: 1 ampul Amiodarone HCl (Cordarone) 200 mg PO Q12HR [facility] Last Admin: 10/02/18 20:05 Dose: 200 mg Aspirin (Aspirin Chew) 81 mg PO DAILY [facility] Last Admin: 10/05/18 09:35 Dose: 81 mg Atorvastatin Calcium (Lipitor) 20 mg PO HS [facility] Last Admin: 10/02/18 20:05 Dose: 20 mg Bisacodyl (Dulcolax Supp) 10 mg RECTAL PRN PRN PRN Reason: SEE LABEL COMMENTS Clopidogrel Bisulfate (Plavix) 75 mg PO DAILY [facility] Last Admin: 10/05/18 09:34 Dose: 75 mg Dextrose (D50w Vial) 50 ml IV.PUSH UNSCH PRN PRN Reason: PER HYPOGLYCEMIA PROTOCOL Docusate Sodium (Colace) 100 mg PO BID [facility] Last Admin: 10/05/18 20:50 Dose: Not Given Fondaparinux (Arixtra Inj) 7.5 mg SQ Q24H [facility] Last Admin: 10/05/18 17:11 Dose: 7.5 mg Glucagon (Glucagon Inj) 1 mg OTHER PRN PRN PRN Reason: For hypoglycemia Magnesium Sulfate 2 gm/ Sodium (Chloride) 100 mls @ 50 mls/hr IV.SIG PRN PRN PRN Reason: SEE LABEL COMMENTS Last Infusion: 10/01/18 12:00 Dose: Infused Magnesium Sulfate 2 gm/ Sodium (Chloride) 100 mls @ 50 mls/hr IV.SIG PRN PRN PRN Reason: SEE LABEL COMMENTS Phenylephrine HCl 40 mg/ (Sodium Chloride) 500 mls @ 30 mls/hr IV.CONT TITRATE PRN; Protocol PRN Reason: See Protocol Last Titration: 10/03/18 07:00 Dose: 0 mcg/min, 0 mls/hr Potassium Chloride (Kcl 20 Meq Premix Inj) 20 meq in 100 mls @ 50 mls/hr IV.SIG PRN PRN PRN Reason: SEE LABEL COMMENTS Last Infusion: 10/01/18 16:31 Dose: Infused Potassium Chloride (Kcl 20 Meq Premix Inj) 20 meq in 100 mls @ 50 mls/hr IV.SIG PRN PRN PRN Reason: SEE LABEL COMMENTS Potassium Chloride (Kcl 20 Meq Premix Inj) 20 meq in 100 mls @ 50 mls/hr IV.SIG PRN PRN PRN Reason: SEE LABEL COMMENTS Last Infusion: 09/30/18 01:35 Dose: Infused Insulin Aspart (Novolog Insulin Correctional Sugar Inj) 0 unit SQ ACHS [facility]; Protocol Last Admin: 10/05/18 21:02 Dose: 9 unit Isosorbide Mononitrate (Imdur) 30 mg PO DAILY [facility] Last Admin: 09/30/18 12:01 Dose: Not Given Lactulose (Lactulose Liq) 30 ml PO DAILY PRN PRN Reason: SEVERE CONSITIPATION Lactulose (Lactulose Liq) 30 ml PO BID [facility] Last Admin: 10/05/18 20:51 Dose: Not Given Morphine Sulfate (Morphine Inj) 2 mg IV.PUSH Q4H PRN PRN Reason: Acute Pain 1-10 Last Admin: 10/05/18 20:22 Dose: 2 mg Multivitamins/Minerals (Theragran-M) 1 tab PO DAILY [facility] Last Admin: 10/05/18 09:34 Dose: 1 tab Mupirocin (Bactroban 2% Nasal Oint) 1 applicatio EACH NARE BID [facility] Last Admin: 10/05/18 20:46 Dose: 1 applicatio Ondansetron HCl (Zofran Inj) 4 mg IV.PUSH Q6H PRN PRN Reason: NAUSEA OR VOMITING Pantoprazole Sodium (Protonix Inj) 40 mg IV.PUSH DAILY [facility] Last Admin: 10/05/18 09:35 Dose: 40 mg Phenylephrine HCl (Neosynephrine Inj) 0.1 mg IV.PUSH UNSCH PRN PRN Reason: SEE LABEL COMMENTS Polyethylene Glycol (Miralax) 17 gm PO DAILY [facility] Last Admin: 10/05/18 09:35 Dose: 17 gm Potassium Chloride (K-Dur) 20 meq PO UNSCH PRN PRN Reason: SEE LABEL COMMENTS Potassium Chloride (K-Dur) 40 meq PO UNSCH PRN PRN Reason: SEE LABEL COMMENTS Ranolazine (Ranexa) 500 mg PO Q12H [facility] Last Admin: 10/05/18 20:46 Dose: 500 mg Senna/Docusate Sodium (Jacqui-Colace) 1 tab PO BID [facility] Last Admin: 10/05/18 20:51 Dose: Not Given Sennosides (Senokot) 17.2 mg PO Q12H PRN PRN Reason: Moderate Constipation Sennosides (Senokot) 8.6 mg PO [facility] Last Admin: 10/05/18 20:51 Dose: Not Given Sertraline HCl (Zoloft) 50 mg PO DAILY [facility] Last Admin: 10/05/18 09:35 Dose: 50 mg Sodium Biphosphate/Sodium Phosphate (Fleets Enema (Adult)) 118 ml RECTAL UNSCH PRN PRN Reason: SEE LABEL COMMENTS Sodium Chloride (Ns Flush) 2 ml IV.FLUSH BID [facility] Last Admin: 10/05/18 20:51 Dose: 2 ml Sodium Chloride (Ns Flush) 2 ml IV.FLUSH PRN PRN PRN Reason: FLUSH AFTER USING IV ACCESS Temazepam (Restoril) 7.5 mg PO [facility] Last Admin: 10/05/18 20:46 Dose: 7.5 mg Throat Lozenges (Chloraseptic [place]) 2 spray OROPHARYNG Q2H PRN PRN Reason: SORE THROAT Last Admin: 10/04/18 21:15 Dose: 2 spray Allergies Allergy/AdvReac Type Severity Reaction Status Date / Time metoprolol Allergy Severe HALLUCINATI Verified 09/23/18 22:25 ONS famotidine Allergy Unknown RASH Verified 09/23/18 22:25 lisinopril Allergy Unknown Itching Verified 09/23/18 22:25 insulin detemir AdvReac Unknown Diarrhea Verified 09/23/18 22:25 Home Medications Medication Instructions Recorded Confirmed Type aspirin [Aspir-81] 81 mg PO DAILY 08/03/18 09/24/18 History atorvastatin 20 mg PO DAILY 08/03/18 09/24/18 History insulin glargine [Lantus U-100 25 unit SUB-Q DAILY 08/03/18 09/24/18 History Insulin] insulin lispro [Humalog U-100 45 unit SUB-Q DAILY 08/03/18 09/24/18 History Insulin] isosorbide mononitrate 30 mg PO QAM 08/03/18 09/24/18 History methocarbamol 500 mg PO QID 08/03/18 09/24/18 History nitroglycerin 0.3 mg SUBLINGUAL Q5-15M PRN 08/03/18 09/24/18 History sertraline 50 mg PO DAILY 08/03/18 09/24/18 History temazepam 7.5 mg PO HS 08/03/18 09/24/18 History ticagrelor [Brilinta] 90 mg PO BID 08/03/18 09/24/18 History Physical Exam Vital signs: Vital Signs 10/05/18 03:00 10/05/18 07:41 10/05/18 07:45 Temperature 98.1 F 98.3 F Pulse Rate 79 75 75 Respiratory Rate 20 19 16 Blood Pressure 99/55 L 103/72 Pulse Oximetry 98 95 97 10/05/18 08:00 10/05/18 11:00 10/05/18 13:40 Temperature 98.2 F Pulse Rate 80 76 Respiratory Rate 18 17 Blood Pressure 104/71 Pulse Oximetry 95 97 10/05/18 15:00 10/05/18 19:00 10/05/18 23:14 Temperature 98.1 F 98.7 F Pulse Rate 73 75 Respiratory Rate 18 16 18 Blood Pressure 89/65 L 97/55 L Pulse Oximetry 98 95 Intake & Output 10/05/18 10/05/18 10/06/18 06:59 18:59 06:59 Intake Total 391 / 391 1405 / 1405 Output Total 1425 / 1425 855 / 855 Balance -1034 / -1034 550 / 550 Weight 81.5 kg Intake: IV 151 / 151 380 / 380 Heparin/D5W 25,000 U/250 mL 25, 151 / 151 270 / 270 000 unit In 250 ml @ Per Protocol IV.CONT TITRATE PRN Rx #:[id number] Calcium Gluconate Inj 1 GM In 110 / 110 D5W Inj 100 ML @ 110 mls/hr IV. SIG ONCE ONE Rx#:[id number] Oral 240 / 240 1025 / 1025 Output: Urine Amount (Catheter) 1425 / 1425 855 / 855 Indwelling Temp Sensing 1425 / 1425 855 / 855 Catheter Other: Date of Last Bowel Movement 10/05/18 # Bowel Movements 0 3 Narrative: GENERAL: NAD SKIN: Warm and dry. HEAD: Atraumatic. Normocephalic. EYES: Pupils equal and round. No scleral icterus. No injection or drainage. ENT: No nasal bleeding or discharge. Mucous membranes pink and moist. NECK: Trachea midline. No JVD. CARDIOVASCULAR: Regular rate and rhythm. Sternotomy clean/dry/intact RESPIRATORY: No accessory muscle use. Decreased breath sounds bilaterally GASTROINTESTINAL: Abdomen soft, non-tender, nondistended. Hepatic and splenic margins not palpable. MUSCULOSKELETAL: Extremities without clubbing, cyanosis, or edema. No obvious deformities. NEUROLOGICAL: Awake and alert. No obvious cranial nerve deficits. Motor grossly within normal limits. Five out of 5 muscle strength in the arms and legs. Normal speech. PSYCHIATRIC: Appropriate mood and affect; insight and judgment normal. - Urinary Catheter Management Indwelling Temp Sensing Catheter Cath placed during this visit: yes Reason for continuing: Hourly intake/output Insertion date: 09/29/18 Insertion time: 08:30 Results 10/05/18 05:15 10/05/18 05:15 Cardiac Enzymes 10/04/18 10/05/18 Range/Units 04:58 05:15 AST 364 H 234 H (15-37) U/L Coagulation 10/04/18 10/05/18 Range/Units 04:58 05:15 APTT 42.9 H 49.8 H (23.4-31.7) sec CBC 10/04/18 10/05/18 Range/Units 04:58 05:15 WBC 8.3 10.1 (4.0-11.0) th/mm3 RBC 3.37 L 3.23 L (4.00-5.30) mil/mm3 Hgb 10.1 L 9.6 L (11.6-15.3) gm/dL Hct 29.3 L 28.6 L (35.0-46.0) % Plt Count 86 L 120 L D (150-450) th/mm3 Neut # (Auto) 6.7 (1.8-7.7) th/mm3 Lymph # (Auto) 2.4 (1.0-4.8) th/mm3 [place]le # (Auto) 0.8 (0.0-0.9) th/mm3 Eos # (Auto) 0.2 (0.0-0.4) th/mm3 Baso # (Auto) 0.0 (0.0-0.2) th/mm3 Comprehensive Metabolic Panel 10/04/18 10/04/18 10/05/18 Range/Units 04:58 19:18 05:15 Sodium 138 136 136 (136-145) meq/L Potassium 4.5 4.3 3.8 (3.5-5.1) meq/L Chloride 106 103 103 (98-107) meq/L Carbon Dioxide 22.1 21.3 21.7 (21.0-32.0) meq/L BUN 29 H 28 H 24 H (7-18) mg/dL Creatinine 1.04 H 1.06 H 1.07 H (0.50-1.00) mg/dL Calcium 7.5 L 7.4 L* 7.4 L* (8.5-10.1) mg/dL AST 364 H 234 H (15-37) U/L ALT 754 H 552 H (10-53) U/L Alkaline Phosphatase 240 H 400 H (45-117) U/L Total Protein 6.2 L 6.2 L 6.2 L (6.4-8.2) g/dL Albumin 2.9 L 2.7 L (3.4-5.0) g/dL Intake and Output 10/05/18 10/05/18 10/06/18 14:59 22:59 06:59 Intake Total 380 / 380 1025 / 1025 Output Total 855 / 855 Balance 380 / 380 170 / 170 Intake: IV 380 / 380 Heparin/D5W 25,000 U/250 mL 25, 270 / 270 000 unit In 250 ml @ Per Protocol IV.CONT TITRATE PRN Rx #:[id number] Calcium Gluconate Inj 1 GM In 110 / 110 D5W Inj 100 ML @ 110 mls/hr IV. SIG ONCE ONE Rx#:[id number] Oral 1025 / 1025 Output: Urine Amount (Catheter) 855 / 855 Indwelling Temp Sensing 855 / 855 Catheter Other: Date of Last Bowel Movement 10/05/18 10/05/18 # Bowel Movements 3 - Imaging and Cardiology Imaging: Impressions Chest X-Ray 10/04/18 06:00 CONCLUSION: 1. Interval removal of mediastinal chest tube and left-sided chest tube with no pneumothorax. 2. Hazy opacity in both lungs with blunting of the costophrenic angles. This appears mildly increased. Could represent increasing infiltrate and/or effusions. Chest X-Ray 10/05/18 06:00 CONCLUSION: Apparent mild interval improvement in apparent airspace opacity. Bilateral effusions remain. Assessment and Plan - Assessment (1) Unstable angina Code(s): I20.0 - Unstable angina Status: Acute (2) CAD (coronary artery disease), [place] coronary artery Code(s): I25.10 - Atherosclerotic heart disease of [place] coronary artery without angina pectoris Status: Acute (3) Diabetes mellitus Code(s): E11.9 - Type 2 diabetes mellitus without complications Status: Chronic (4) Acute ST elevation myocardial infarction (STEMI) Code(s): I21.3 - ST elevation (STEMI) myocardial infarction of unspecified site Status: Acute - Plan 1) CABG x4 2) Jacqui-procedure STEMI Found to have extensive thrombus in both [place] vessels as well as grafts RAMEY to LAD with competitive flow, most likely will occlude Thrombus in LAD aspirated, distal LAD unable to pass wire past the anastomosis site SVG to OM1/OM2 occluded with extensive thrombus MAXWELL x 2 to [place] OM1 MAXWELL to [place] LCx POBA of [place] OM2 RCA stents patent PDA occluded where it was previously jailed Unable to find SVG to PDA [place] to be small vessel supplying very little territory ASA/Plavix 3) Intubated s/p extubation 4) Hypercoagulable state Appreciate Hematology consultation Most likely anticoagulation/antiplatelet combination on discharge HIT YARITZA positive All heparin products stopped Placed on Arixtra Eventual oral anticoagulation 5) Bedside HAKAN done with Dr. Enriquez EF 45%, inferolateral wall akinetic No significant valvulopathy. Bedside echo EF 40-45% 6) Fluid overload state from 2 units PRBC Agree with diuresis as possible 7) LFTs trending down Concern for acalculous cholecystitis Unable to lay flat for HIDA scan at this time 8) Repeat echo with concern for thrombus in the apex of the RV Con't with anticoagulation
[2018-10-06 04:31] LABS: Hematocrit 30.4 % (35.0-46.0); Hemoglobin 10.1 gm/dL (11.6-15.3); Mean Corpuscular HGB Conc 33.2 % (32.0-36.0); Mean Corpuscular Hemoglobin 29.2 pg (27.0-34.0); Mean Corpuscular Volume 87.7 fL (80.0-100.0); Mean Platelet Volume 8.8 fL (7.0-11.0); Platelet Count 161 th/mm3 (150-450); Red Blood Count 3.46 mil/mm3 (4.00-5.30); Red Cell Distribution Width 15.1 % (11.6-17.2); White Blood Count 10.2 th/mm3 (4.0-11.0)
[2018-10-06 04:48] LABS: INR 1.3 Ratio; Prothrombin Time 13.3 sec (9.8-11.6)
[2018-10-06 04:56] LABS: Albumin 2.8 g/dL (3.4-5.0); Anion Gap 11 meq/L (5-15); Aspartate Aminotransferase 218 U/L (15-37); Blood Urea Nitrogen 21 mg/dL (7-18); Calcium 7.6 mg/dL (8.5-10.1); Carbon Dioxide 24.8 meq/L (21.0-32.0); Chloride 102 meq/L (98-107); Glomerular Filtration Rate 74 mL/min (>89); Glucose,Random 105 mg/dL (74-106); Magnesium 2.6 mg/dL (1.5-2.5); Potassium 3.8 meq/L (3.5-5.1); Sodium 138 meq/L (136-145)
[2018-10-06 04:57] LABS: Alanine Aminotransferase 520 U/L (10-53); Phosphorus 2.4 mg/dL (2.5-4.9)
[2018-10-06 04:59] LABS: Alkaline Phosphatase 383 U/L (45-117); Total Protein 6.8 g/dL (6.4-8.2)
--- NOTE | 2018-10-06 05:07 | XR ---
EXAM DATE: 10/06/2018 4:33 AM EST AGE/SEX: 58 years / Female INDICATIONS: Shortness of breath CLINICAL DATA: This is the patient's subsequent encounter. Patient reports that signs and symptoms h ave been present for 1 week and indicates a pain score of 0/10. MEDICAL/SURGICAL HISTORY: . Diabetes. Renal insufficiency. Myocardial infarction. MRSA. CABG. COMPARISON: [facility], CHEST 1V SINGLE AP, 10/05/2018. . FINDINGS: A single AP portable semierect view of the chest was instructed interval removal of the previously no joanna right internal jugular central venous line. The patient is status post median sternotomy is now r otated to the right. There is increased hazy opacity in the left lung which may be artifactual. The l eft costophrenic angle appears mildly blunted. There is mild cardiomegaly. The bony thorax is intact. CONCLUSION: 1. Rotated examination with increased opacity in the left lung which may be artifactual. 2. Mild cardiomegaly and apparent left effusion. Electronically signed by: Guilherme Francisco MD 10/06/2018 5:05 AM EST
--- NOTE | 2018-10-06 08:07 | P.PNONC ---
Subjective Interval history: Pt seen and examined this morning, she is awake and alert, oriented responsive and is sitting up in a bedside chair. She reports pain at the site of her sternotomy. But otherwise reports feeling much improved. Objective Vital Signs/Intake & Output: Vital Signs 10/05/18 11:00 10/05/18 13:40 10/05/18 15:00 Temperature 98.2 F 98.1 F Pulse Rate 80 76 73 Respiratory Rate 18 17 18 Blood Pressure 104/71 89/65 L Pulse Oximetry 97 98 10/05/18 19:00 10/05/18 20:14 10/05/18 20:15 Temperature 98.7 F Pulse Rate 75 76 Respiratory Rate 16 22 Blood Pressure 97/55 L Pulse Oximetry 95 96 10/05/18 23:00 10/05/18 23:14 10/06/18 03:00 Temperature 98.8 F 98.5 F Pulse Rate 75 75 Respiratory Rate 16 18 16 Blood Pressure 97/55 L 105/70 Pulse Oximetry 97 95 Intake & Output 10/05/18 10/06/18 10/06/18 18:59 06:59 18:59 Intake Total 1405 / 1405 720 / 720 Output Total 855 / 855 675 / 675 Balance 550 / 550 45 / 45 Weight 82 kg Intake: IV 380 / 380 Heparin/D5W 25,000 U/250 mL 25, 270 / 270 000 unit In 250 ml @ Per Protocol IV.CONT TITRATE PRN Rx #:[id number] Calcium Gluconate Inj 1 GM In 110 / 110 D5W Inj 100 ML @ 110 mls/hr IV. SIG ONCE ONE Rx#:[id number] Oral 1025 / 1025 720 / 720 Output: Urine Amount (Catheter) 855 / 855 675 / 675 Indwelling Temp Sensing 855 / 855 675 / 675 Catheter Other: Date of Last Bowel Movement 10/05/18 10/05/18 # Bowel Movements 3 Result Diagrams: 10/06/18 03:41 10/06/18 03:41 Laboratory Results: Laboratory Results - last 24 hr 10/05/18 10/05/18 10/05/18 11:24 16:51 20:57 WBC RBC Hgb Hct MCV MCH MCHC RDW Plt Count MPV PT INR Sodium Potassium Chloride Carbon Dioxide Anion Gap BUN Creatinine Estimated GFR POC Glucose 190 H 103 150 H Random Glucose Calcium Phosphorus Magnesium Total Bilirubin AST ALT Alkaline Phosphatase Total Protein Albumin 10/06/18 10/06/18 10/06/18 03:41 03:41 03:41 WBC 10.2 RBC 3.46 L Hgb 10.1 L Hct 30.4 L MCV 87.7 MCH 29.2 MCHC 33.2 RDW 15.1 Plt Count 161 D MPV 8.8 PT 13.3 H INR 1.3 Sodium 138 Potassium 3.8 Chloride 102 Carbon Dioxide 24.8 Anion Gap 11 BUN 21 H Creatinine 0.95 Estimated GFR 74 L POC Glucose Random Glucose 105 Calcium 7.6 L Phosphorus 2.4 L Magnesium 2.6 H Total Bilirubin 1.2 H AST 218 H ALT 520 H Alkaline Phosphatase 383 H Total Protein 6.8 D Albumin 2.8 L 10/06/18 07:40 WBC RBC Hgb Hct MCV MCH MCHC RDW Plt Count MPV PT INR Sodium Potassium Chloride Carbon Dioxide Anion Gap BUN Creatinine Estimated GFR POC Glucose 161 H Random Glucose Calcium Phosphorus Magnesium Total Bilirubin AST ALT Alkaline Phosphatase Total Protein Albumin Culture Results: Microbiology 10/01/18 11:39 Aerobic Blood Culture - Preliminary Blood - Peripheral No growth in 4 days Anaerobic Blood Culture - Preliminary No growth in 4 days 10/01/18 11:11 Aerobic Blood Culture - Preliminary Blood - Peripheral No growth in 4 days Anaerobic Blood Culture - Preliminary No growth in 4 days Imaging Studies: Impressions Chest X-Ray 10/06/18 06:00 CONCLUSION: 1. Rotated examination with increased opacity in the left lung which may be artifactual. 2. Mild cardiomegaly and apparent left effusion. Medications: Active Medications Generic Name Dose Route Start Last Admin Trade Name Freq PRN Reason Stop Dose Admin Al Hydroxide/Mg Hydroxide 30 ml 10/02/18 09:00 10/05/18 10:16 Milk Of [place] Liq PO Not Given DAILY [facility] Albuterol 1 ampul 09/29/18 13:35 10/03/18 23:27 Duoneb Neb (Prn) NEB 1 ampul Q2HR NEB PRN Administration WHEEZING Albuterol 1 ampul 10/04/18 14:00 10/05/18 20:14 Duoneb Neb (Estelle) NEB 10/06/18 13:59 1 ampul Q6HR WHILE AWAKE NEB [facility] Administration Amiodarone HCl 200 mg 09/29/18 21:00 10/02/18 20:05 Cordarone PO 200 mg Q12HR [facility] Administration Aspirin 81 mg 09/30/18 09:00 10/05/18 09:35 Aspirin Chew PO 81 mg DAILY [facility] Administration Atorvastatin Calcium 20 mg 09/25/18 21:00 10/02/18 20:05 Lipitor PO 20 mg HS [facility] Administration Clopidogrel Bisulfate 75 mg 09/30/18 09:00 10/05/18 09:34 Plavix PO 75 mg DAILY [facility] Administration Docusate Sodium 100 mg 10/02/18 21:00 10/05/18 20:50 Colace PO Not Given BID [facility] Fondaparinux 7.5 mg 10/05/18 17:00 10/05/18 17:11 Arixtra Inj SQ 7.5 mg Q24H [facility] Administration Magnesium Sulfate 2 gm/ Sodium 100 mls @ 50 mls/hr 09/29/18 13:35 10/01/18 12 :00 Chloride IV.SIG Infused PRN PRN Infusion SEE LABEL COMMENTS Phenylephrine HCl 40 mg/ 500 mls @ 30 mls/hr 09/29/18 13:35 10/03/18 07:00 Sodium Chloride IV.CONT 0 mcg/min TITRATE PRN 0 mls/hr See Protocol Titration Protocol 40 MCG/MIN Potassium Chloride 20 meq in 100 mls @ 50 mls/hr 09/29/18 13:35 10/01/18 16: 31 Kcl 20 Meq Premix Inj IV.SIG Infused PRN PRN Infusion SEE LABEL COMMENTS Potassium Chloride 20 meq in 100 mls @ 50 mls/hr 09/29/18 13:35 09/30/18 01: 35 Kcl 20 Meq Premix Inj IV.SIG Infused PRN PRN Infusion SEE LABEL COMMENTS Insulin Aspart 0 unit 10/03/18 12:00 10/05/18 21:02 Novolog Insulin Correctional Sugar Inj SQ 9 unit ACHS [facility] Administration Protocol Isosorbide Mononitrate 30 mg 09/24/18 09:00 09/30/18 12:01 Imdur PO Not Given DAILY [facility] Lactulose 30 ml 10/05/18 21:00 10/05/18 20:51 Lactulose Liq PO Not Given BID [facility] Morphine Sulfate 2 mg 10/03/18 11:56 10/05/18 20:22 Morphine Inj IV.PUSH 2 mg Q4H PRN Administration Acute Pain 1-10 Multivitamins/Minerals 1 tab 10/02/18 09:00 10/05/18 09:34 Theragran-M PO 1 tab DAILY [facility] Administration Mupirocin 1 applicatio 10/02/18 21:00 10/05/18 20:46 Bactroban 2% Nasal Oint EACH NARE 1 applicatio BID [facility] Administration Pantoprazole Sodium 40 mg 09/30/18 11:00 10/05/18 09:35 Protonix Inj IV.PUSH 40 mg DAILY [facility] Administration Polyethylene Glycol 17 gm 10/03/18 09:00 10/05/18 09:35 Miralax PO 17 gm DAILY [facility] Administration Ranolazine 500 mg 09/24/18 09:00 10/05/18 20:46 Ranexa PO 500 mg Q12H [facility] Administration Senna/Docusate Sodium 1 tab 09/24/18 09:00 10/05/18 20:51 Jacqui-Colace PO Not Given BID [facility] Sennosides 8.6 mg 10/02/18 21:00 10/05/18 20:51 Senokot PO Not Given HS [facility] Sertraline HCl 50 mg 09/24/18 09:00 10/05/18 09:35 Zoloft PO 50 mg DAILY [facility] Administration Sodium Chloride 2 ml 09/24/18 09:00 10/05/18 20:51 Ns Flush IV.FLUSH 2 ml BID [facility] Administration Temazepam 7.5 mg 09/24/18 21:00 10/05/18 20:46 Restoril PO 7.5 mg HS [facility] Administration Throat Lozenges 2 spray 10/04/18 17:48 10/04/18 21:15 Chloraseptic [place] OROPHARYNG 2 spray Q2H PRN Administration SORE THROAT Objective Remarks: GENERAL: Middle-aged female, sitting up at bedside, appears to be no acute distress, she is awake, alert and oriented. SKIN: Warm and dry. HEAD: Normocephalic. EYES: No scleral icterus. No injection or drainage. NECK: Supple, trachea midline. No JVD or lymphadenopathy. LYMPHATIC: No adenopathy. CARDIOVASCULAR: Sternotomy wound VAC noted, RRR, S1-S2. RESPIRATORY: Weak inspiratory effort, decreased bibasilar breath sounds, prolonged expiratory phase, scattered crepitus. GASTROINTESTINAL: Abdomen soft, non-tender, nondistended. EXTREMITIES: No cyanosis, or edema. MUSCULOSKELETAL: Adequate muscle tone. NEUROLOGICAL: No obvious focal deficit. Awake, alert, and oriented x3. PSYCHIATRIC: Appropriate mood and affect; insight and judgment normal. Assessment/Plan - Plan Ms. Lira is a 58 year-old female patient who underwent urgent off-pump coronary artery bypass grafting x4 on 09/29/2018. The patient suffered occlusions of the graft within hours of undergoing surgery and she underwent left heart catheterization which revealed significant thrombus formation within the saphenous venous graft to the first and second obtuse marginals, additional thrombus had developed along the left anterior descending artery. The arterial thrombosis within the graft occurred while the patient was on antiplatelet agents. Hematology was consulted to rule out prothrombotic condition. Pro thrombotic workup indicated findings consistent with heparin-induced thrombocytopenia. Interestingly her initial heparin/platelet factor 4 antibody was negative, the YARITZA was positive. She was also found to have an initial positive for circulating lupus anticoagulant, confirmatory test will be due in 10-12 weeks. Recommendations: 1. Hyper acute CABG graft thrombosis: Found to be positive for heparin-induced thrombocytopenia which likely explains the patient's underlying prothrombotic state. Now completely off heparin. Initiated on fondaparinux at therapeutic dosing of 7.5 mg subcu daily. Continue aspirin Plavix. Avoiding our gastric band due to abnormal LFTs. 2. Heparin-induced thrombocytopenia, with positive YARITZA. Discontinue all heparin products. 3. Thrombocytopenia has resolved. 4. Abnormal LFTs are improving. 5. Avoid all heparin like products.
[2018-10-06] MEDS: Insulin NovoLOG Aspart Correctional Sugar Inj SQ SCH ×4 (08:15→21:17)
[2018-10-06] MEDS: Pantoprazole Inj 40 MG Vial IV.PUSH SCH (08:16)
[2018-10-06] MEDS: Ranolazine 500 MG 12HR ER Tablet PO SCH ×2 (08:16→21:16)
[2018-10-06] MEDS: Mupirocin 2% Nasal Oint Topical Syringe EACH NARE SCH ×2 (08:16→21:15)
[2018-10-06] MEDS: Multivitamin/Minerals Therapeutic Tablet PO SCH (08:17)
[2018-10-06] MEDS: Senna/Docusate Sodium 8.6/50 MG Tablet PO SCH ×2 (08:17→21:15)
[2018-10-06] MEDS: Sodium Chloride 0.9% 2 ML Flush BID IV.FLUSH SCH ×2 (08:17→21:17)
[2018-10-06] MEDS: Polyethylene Glycol 3350 17 GM Packet PO SCH (08:17)
[2018-10-06] MEDS: Sertraline 50 MG Tablet PO SCH (08:18)
[2018-10-06] MEDS: Docusate Sodium 100 MG Capsule PO SCH ×2 (08:18→21:15)
[2018-10-06] MEDS ORDERED: Sincalide Inj 5 MCG Vial ONE (10:57)
[2018-10-06] MEDS: Morphine Inj 4 MG/ML Vial IV.PUSH PRN ×3 (11:59→23:16)
--- NOTE | 2018-10-06 12:05 | P.PNCV ---
- Note Subjective/Hospital Course: sts data discussed with pt RISK SCORES About the STS Risk Calculator Procedure: CAB Only Risk of Mortality: 0.745% Morbidity or Mortality: 8.994% Long Length of Stay: 3.108% Short Length of Stay: 56.144% Permanent Stroke: 0.567% Prolonged Ventilation: 6.252% DSW Infection: 0.387% Renal Failure: 1.922% Reoperation: 3.349% 58-year-old female with a significant history of coronary artery disease the presented to the ED for evaluation of chest pain. Patient has had chest pain for about a week. Per patient is progressively getting worse. She denies any urinary or bowel movement issues. She states that the pain gets worse with stress and movement. She took 4 nitro with minimal improvement of the symptoms which was what prompted her evaluation. Patient was admitted recently in July for evaluation of similar. She had another heart cath that showed . Significant multivessel disease, although overall small vessels. She did not had stenting at that time and they thought that she could have increase of her medications and may be this will help with her symptoms but she continues to have symptoms. PMH: CAD/ ND/ Stents/ HTN, HLP, DM insulin dependent EF 58% 09/26 pt on heparin gtt, 3 mcq of NTG will resume imdur and dc NTG, pt pain free eval PRU in am for timing of surgery off Brilinta since Thursday 09/27 off NTG gtt / on imdur/ heparin gtt, painfree PRU>250 stable for surgery on 09/28 doing well, no chest pain during the night on heparin gtt stable for surgery in am 09/29 SURGICAL PROCEDURE 1. Urgent Off-pump Coronary Artery Bypass Grafting x 4 with Left Internal Mammary Artery (RAMEY) to Left Anterior Descending (LAD), reverse saphenous vein graft to obtuse Marginal1 and sequentially to the Obtuse Marginal 2 branches of the left Circumflex artery, reverse saphenous vein graft to the posterior Descending branch of the right Coronary artery 2. Left leg Endoscopic Vein [place] 3. Intraoperative Vein Mapping. 09/30 Clinically and hemodynamic is stable Events noted with hyper acute thrombosis of all the grafts. PCI to the circumflex distribution Greatly appreciate Dr. Melissa and Dr. Enriquez's assistance in her care Wean to extubate today Presently on aspirin Plavix and heparin drip. Will defer to Dr. Melissa regarding long-term antiplatelet therapy Greatly appreciate Dr. Curry's input regarding further workup of her thrombotic state 10/01 Doing well this morning Awake alert oriented and responds appropriately verbal commands Weaning ventilator with plans to extubate today Hemodynamically stable Maintain chest tubes to drainage for now 10/02 Remains weak Not taking deep breaths or coughing Needs PT OT and incentive spirometry Likely DC chest tubes in a.m. once she has gotten out of bed 10/03 minimal drainage in chest tube will dc today / heparin off to remove chest tubes, then resume weak, sleepy , will dc narcotics for now elevated LFT tylenol , amiodarone and statin held ammonia level 53 yesterday on partial NRB, needs aggressive pulm toileting OOB with assistance/ PT 10/04 remains on partial NRB mask diuresis increased PLT 83, continue ASA, plavix and heparin gtt for now with recent acute graft closure await final decision regarding NOAC on pt / was on Brilinta before surgery 10/05 up in chair, now on nasal cannula PLT improving 120 awake input from cardiology and Heme/ concerning oral anticoagulation/ continue PT/OT eval for transfer from CVICU in am 10/06 HIT + , off all heparin products / on arixtra ASA, plavix on 2 liter nasal cannula/ CXR noted dose with additional lasix this am for Hida scan today will transfer out of CVICU today Objective: Vital Signs - 24 hr 10/05/18 13:40 10/05/18 15:00 10/05/18 19:00 Temperature 98.1 F 98.7 F Pulse Rate 76 73 75 Respiratory Rate 17 18 16 Blood Pressure 89/65 L 97/55 L Pulse Oximetry 98 95 10/05/18 20:14 10/05/18 20:15 10/05/18 23:00 Temperature 98.8 F Pulse Rate 76 75 Respiratory Rate 22 16 Blood Pressure 97/55 L Pulse Oximetry 96 97 10/05/18 23:14 10/06/18 03:00 10/06/18 07:00 Temperature 98.5 F Pulse Rate 75 72 Respiratory Rate 18 16 Blood Pressure 105/70 Pulse Oximetry 95 10/06/18 08:00 Temperature Pulse Rate Respiratory Rate Blood Pressure Pulse Oximetry 95 GENERAL: A&O x 3 SKIN: Warm and dry. prevena dressing to chest , incision intact to left leg HEAD: Normocephalic. EYES: No scleral icterus. No injection or drainage. NECK: Supple, trachea midline. No JVD or lymphadenopathy. CARDIOVASCULAR: Regular rate and rhythm without murmurs, gallops, or rubs. RESPIRATORY: bibasilar crackles Breath sounds equal bilaterally. No accessory muscle use. GASTROINTESTINAL: Abdomen soft, non-tender, nondistended. MUSCULOSKELETAL: No cyanosis, or edema. BACK: Nontender without obvious deformity. No CVA tenderness. Labs: Laboratory Results - last 12 hr 10/06/18 10/06/18 10/06/18 03:41 03:41 03:41 WBC 10.2 RBC 3.46 L Hgb 10.1 L Hct 30.4 L MCV 87.7 MCH 29.2 MCHC 33.2 RDW 15.1 Plt Count 161 D MPV 8.8 PT 13.3 H INR 1.3 Sodium 138 Potassium 3.8 Chloride 102 Carbon Dioxide 24.8 Anion Gap 11 BUN 21 H Creatinine 0.95 Estimated GFR 74 L POC Glucose Random Glucose 105 Calcium 7.6 L Phosphorus 2.4 L Magnesium 2.6 H Total Bilirubin 1.2 H AST 218 H ALT 520 H Alkaline Phosphatase 383 H Total Protein 6.8 D Albumin 2.8 L 10/06/18 07:40 WBC RBC Hgb Hct MCV MCH MCHC RDW Plt Count MPV PT INR Sodium Potassium Chloride Carbon Dioxide Anion Gap BUN Creatinine Estimated GFR POC Glucose 161 H Random Glucose Calcium Phosphorus Magnesium Total Bilirubin AST ALT Alkaline Phosphatase Total Protein Albumin Result Diagrams: 10/06/18 03:41 10/06/18 03:41 - Plan (1) S/P coronary artery bypass graft x 4 Plan: off statin, amiodarone 2/2 elevated LFT OOB to chair on nasal cannula / diuresis today / CXR noted remains on ASA, Plavix , (2) Renal insufficiency Plan: indices improving (3) CAD (coronary artery disease), [place] coronary artery Plan: ASA, Heparin gtt (4) Diabetes mellitus Plan: diabetic diet insulin sliding scale HGB A1C 8.6 (5) Subsequent non-ST elevation (NSTEMI) myocardial infarction Plan: Left heart catheterization, coronary angiogram, bypass angiogram, complex case, moderate sedation at 128 minutes, [place] drug-eluting stent x2 (proximal 2 x 12, mid 2 x 30) to first obtuse marginal, balloon angioplasty of the second obtuse marginal, [place] drug-eluting stent (2 x 30) to mid left circumflex, aspiration thrombectomy of LAD. (6) Unstable angina Plan: pain free at this time (7) Elevated LFTs Plan: tylenol dc amiodarone dc statin dc f/u levels improving GI following US calculus cholecystitis / Hida scan today (8) Heparin induced thrombocytopenia (HIT) Plan: off all heparin products on arixtra will need to decide on NOAC prior to dc
--- NOTE | 2018-10-06 12:51 | NM ---
EXAM DATE: 10/06/2018 12:02 PM EST AGE/SEX: 58 years / Female INDICATIONS: Elevated liver enzymes. CLINICAL DATA: This is the patient's initial encounter. Patient reports that signs and symptoms have been present for 1 day and indicates a pain score of 0/10. MEDICAL/SURGICAL HISTORY: Chronic renal insufficiency. Diabetes mellitus type II. Myocardial infarction. CABG. Coronary artery stent. COMPARISON: No prior exams available for comparison. DOSE: 4.2 mCi Tc-99m mebrofenin i.v. Medication: 1.6 mcg Cholecystokinin IV No symptomatic response Cholecystokinin was administered by slow infusion over 8 minutes beginning at 70 minutes. TECHNIQUE: Following the intravenous administration of radiotracer, dynamic sequential images were pe rformed with continuous acquisition. Time-activity curves were generated. FINDINGS: Hepatic Kinetics: There is prompt uptake of radiotracer in the liver. No focal defects are seen. Ther e is normal rate of washout from the hepatic parenchyma. Biliary Clearance: Activity is first seen in the extrahepatic biliary system at 15 minutes. There is normal excretion into the small bowel. Gallbladder: Activity is first seen in the gallbladder at 50 minutes. Post-CCK: After CCK administration, there is emptying of the gallbladder with a 25% ejection fraction . Common bile duct kinetics are normal and there is no evidence of biliary obstruction. No symptomat ic response after cholecystokinin infusion. Biliary-Enteric Reflux: None observed. CONCLUSION: 1. Borderline abnormal gallbladder ejection fraction. No evidence of acute cholecystitis. 2. Otherwise within normal limits. Electronically signed by: Marcell Fong MD 10/06/2018 12:50 PM EST
--- NOTE | 2018-10-06 13:23 | P.PNCC ---
Subjective Subjective Remarks/Hospital Course: This is a 58yF with history of CAD who underwent off-pump CABG x 4 (RAMEY-->LAD, SVG-->OM1, SVG-->OM2, SVG-->PDA). intra-operatively it was noted that she had significant ST elevations. immediately post-operatively, it was noted that she had tombstoning on her EKG. She was taken emergently to the laborer tin can by Dr. Melissa where she had completely occluded grafts. He stented OM1, LAD. balloon angiopasty to OM2. She arrives back to the CVICU where I met her. She has had 4L crystalloid resuscitation. chest tubes have about 100cc sanguinous output. Of note, she was on a tranexamic acid infusion during the CABG which was started by anesthesia. the patient is intubated and no additional information is available from the patient. ROS unobtainable. I discussed the case with Dr. Melissa and Dr. Campos at bedside: plan to initiate heparin infusion 4 hours post-arterial sheath pull. I also discussed re-evaluation of LV function. Dr. Melissa and I performed HAKAN at bedside which demonstrated lateral and inferolateral hypokinesis, EF 45%, mild TR. 09/30 Patient is awake and alert. On Neosyn 20 mics, Precedex 0.3 and Heparin drip. Afebrile. 10/01 Patient did not tolerate CPAP yesterday, awake and alert. Had T:102.7 yesterday. On Neosyn 20 mics, Precedex 0.2 and Heparin drip. 10/02: Afebrile. Extubated yesterday currently on 3 L nasal cannula. Remains on phenylephrine drip at 30 mcg/min. Heparin drip at 900 units an hour. Heme otology workup currently in process. Speech therapy to evaluate swelling. Out of bed to chair today. 10/03: Overnight received 2 units of PRBC for hemoglobin of 7.4. Became hypoxemic posttransfusion, and had to be placed on partial nonrebreather. Currently remains on partial nonrebreather, chest x-ray shows worsening pulmonary vascular congestion/pulmonary edema. Also it was noted that liver enzymes AST 1157, ALT 1006. Liver ultrasound suggestive of a calculus cholecystitis. I have discontinued Tylenol products, held amiodarone and atorvastatin, requested GI consult. Patient may need cholecystostomy tube placement 10/04: LFTs trending downward. Currently on partial nonrebreather mask. Amiodarone, atorvastatin and acetaminophen all discontinued. On furosemide 40 mg 3 times daily currently. Hepatobiliary scan pending. 10/05: Currently on nasal cannula. Appears more comfortable exam. Continues with active diuresis with furosemide. LFTs trending downward. Subjective 10/06: Remains on nasal cannula. Switch to Arixtra today. Noted negative x- ray positive. 3 clean lupus anticoagulant weakly positive. Confirmatory test in 12 weeks pending. Transaminases downtrending but remained elevated. Nuclear medicine scan revealed slightly abnormal intake but essentially normal gallbladder. Objective Vital Signs / I&O: Vital Signs 10/05/18 13:40 10/05/18 15:00 10/05/18 19:00 Temperature 98.1 F 98.7 F Pulse Rate 76 73 75 Respiratory Rate 17 18 16 Blood Pressure 89/65 L 97/55 L Pulse Oximetry 98 95 10/05/18 20:14 10/05/18 20:15 10/05/18 23:00 Temperature 98.8 F Pulse Rate 76 75 Respiratory Rate 22 16 Blood Pressure 97/55 L Pulse Oximetry 96 97 10/05/18 23:14 10/06/18 03:00 10/06/18 07:00 Temperature 98.5 F Pulse Rate 75 72 Respiratory Rate 18 16 Blood Pressure 105/70 Pulse Oximetry 95 10/06/18 08:00 10/06/18 11:00 Temperature 97.9 F Pulse Rate 71 Respiratory Rate 16 Blood Pressure 98/61 L Pulse Oximetry 95 94 L Intake & Output 10/05/18 10/06/18 10/06/18 18:59 06:59 18:59 Intake Total 1405 / 1405 720 / 720 Output Total 855 / 855 675 / 675 Balance 550 / 550 45 / 45 Weight 82 kg Intake: IV 380 / 380 Heparin/D5W 25,000 U/250 mL 25, 270 / 270 000 unit In 250 ml @ Per Protocol IV.CONT TITRATE PRN Rx #:[id number] Calcium Gluconate Inj 1 GM In 110 / 110 D5W Inj 100 ML @ 110 mls/hr IV. SIG ONCE ONE Rx#:[id number] Oral 1025 / 1025 720 / 720 Output: Urine Amount (Catheter) 855 / 855 675 / 675 Indwelling Temp Sensing 855 / 855 675 / 675 Catheter Other: Date of Last Bowel Movement 10/05/18 10/05/18 10/05/18 # Bowel Movements 3 Result Diagrams: 10/06/18 03:41 10/06/18 03:41 Other Results: Microbiology 10/01/18 11:39 Blood - Peripheral Aerobic Blood Culture - Final No growth in 5 days 10/01/18 11:39 Blood - Peripheral Anaerobic Blood Culture - Final No growth in 5 days 10/01/18 11:11 Blood - Peripheral Aerobic Blood Culture - Final No growth in 5 days 10/01/18 11:11 Blood - Peripheral Anaerobic Blood Culture - Final No growth in 5 days Imaging: Chest X-Ray 09/23/18 22:38 CONCLUSION: Negative examination. Lower Extremity Ultrasound 09/24/18 00:00 CONCLUSION: Nonvisualization of the greater saphenous vein and portions of the lower legs bilaterally. Venous Doppler Study 09/24/18 00:00 CONCLUSION: Negative study. No venous thrombosis of either lower extremity. Chest X-Ray 09/25/18 10:12 CONCLUSION: No evidence of acute cardiopulmonary process. Carotid Doppler Study 09/28/18 10:09 CONCLUSION: 1. Right Internal Carotid Artery: No significant stenosis or atherosclerotic plaque is visualized. 2. Left Internal Carotid Artery: No significant stenosis or atherosclerotic plaque is visualized. Chest X-Ray 09/29/18 13:35 CONCLUSION: Moderate pulmonary edema. Chest X-Ray 09/30/18 05:00 CONCLUSION: Mild bibasilar atelectasis. Liver Ultrasound 10/01/18 00:00 CONCLUSION: 1. Mild hepatomegaly and steatosis suspected. 2. Gallbladder wall thickening with pericholecystic fluid. In the appropriate clinical setting acalculous cholecystitis may have this appearance. Abdomen/Bladder Ultrasound 10/02/18 00:00 CONCLUSION: 1. Increased echogenicity of the kidneys characteristic of medical renal disease. No hydronephrosis. No perinephric fluid. Barba catheter in bladder, decompressed. Chest X-Ray 10/03/18 06:00 CONCLUSION: 1. Endotracheal tube and nasogastric tube no longer seen. 2. Patchy left lung base atelectasis versus consolidation and mild diffuse hazy bilateral lung opacity. Chest X-Ray 10/04/18 06:00 CONCLUSION: 1. Interval removal of mediastinal chest tube and left-sided chest tube with no pneumothorax. 2. Hazy opacity in both lungs with blunting of the costophrenic angles. This appears mildly increased. Could represent increasing infiltrate and/or effusions. Chest X-Ray 10/05/18 06:00 CONCLUSION: Apparent mild interval improvement in apparent airspace opacity. Bilateral effusions remain. Bile Acid Absorption NM 10/06/18 00:00 CONCLUSION: 1. Borderline abnormal gallbladder ejection fraction. No evidence of acute cholecystitis. 2. Otherwise within normal limits. Chest X-Ray 10/06/18 06:00 CONCLUSION: 1. Rotated examination with increased opacity in the left lung which may be artifactual. 2. Mild cardiomegaly and apparent left effusion. Objective Remarks: GENERAL: Patient is 58 yo female currently on nasal cannula in no acute distress SKIN: Warm and dry. HEAD: Normocephalic. EYES: No scleral icterus. No injection or drainage. NECK: Supple, trachea midline. No JVD or lymphadenopathy. CARDIOVASCULAR: Regular rate and rhythm. S1, S2 normal. Without murmurs, gallops, or rubs. RESPIRATORY: Breath sounds equal bilaterally, initially at the bases with few crackles. Using accessory muscle use. Mediastinal chest tube with serosanguineous output. GASTROINTESTINAL: Abdomen soft, non-tender, nondistended. No tenderness on palpation right upper quadrant MUSCULOSKELETAL: No significant peripheral edema. JUANCHO hose in place. Neuro: Awake and alert cranial nerve 2 through 12 grossly intact. Strength is equal symmetric. Normal sensation. Assessment and Plan - Assessment and Plan Plan: Neuro/psych: Depression -Continue sertraline 50 mg daily -Discontinue acetaminophen with elevated transaminases Resp: Acute hypoxemic respiratory failure Pulmonary edema with hypoxia - Currently on 2 L nasal cannula to keep oxygen saturation above 90%. - Bronchodilators with albuterol/ipratropium aerosols every 6 hours while awake times 2 days with - incentive spirometry while awake. EzPAP - hob elevated. BiPAP if needed - CXR showed possible left upper lobe infiltrate likely artifact. CV: s/p off-pump CABG x 4 (RAMEY-->LAD, SVG-->OM1, SVG-->OM2, SVG-->PDA) 09/29 Immediate post-op STEMI Post-op Graft thrombosis Developed fluid overload/pulmonary edema posttransfusion 10/03 IV L furosemide 40 mg IV 3 times daily. Discontinued . We will give 1 additional dose tonight Currently off phenylephrine Off heparin drip currently on Arixtra 7.5 mg subcu daily. Continue ASA, and clopidogrel Hold atorvastatin and amiodarone due to very elevated liver enzymes. Start low-dose beta-blockers if blood pressure remains stable HAKAN post-op: EF 45%, lateral and inferolateral hypokinesis, mild TR chest tubes to suction- monitor CT drainage. Check limited 2D echo left ventricular systolic function is low normal with an estimated ejection fraction in the range of 50- 55%. Normal left ventricular size. Wall thickness is normal. No regional wall motion abnormalities are present. Trace mitral valve regurgitation. Mild thickening of the tricuspid valve leaflets. There is moderate tricuspid regurgitation. The estimated pulmonary arterial pressure is 33 mmHgy Renal: Acute kidney injury - Monitor renal function, I/O's, electrolytes replacement per protocol. Lasix as above Renal ultrasound indicated medical renal disease. Urine sodium was less than 5. Urine creatinine 300. FEN/GI: Transaminitis -GI consulted, currently following -Discontinue acetaminophen , holding atorvastatin and amiodarone -Advance diet as tolerated per speech therapy -On pantoprazole 40mg IV daily -Liver ultrasound revealed edematous gallbladder. No signs of obstructive process. Scan revealed borderline abnormal uptake but normal-appearing gallbladder. Gastroneurology following. Heme/ID: Acute graft thrombosis Normocytic anemia Acute thrombocytopenia Elevated thrombin time -Monitor CBC, coags- on Heparin drip -Negative HIT, positive YARITZA, hexagon all acid weakly positive. Remainder testing negative) -With recommendations hematology. Continue heparin drip, aspirin and clopidogrel ID: -Monitor for signs of infections ( fever, WBC) BC x 2 f/u negative to date - perioperative abx per CTS -s/p cefazolin. Endo: Post-operative hyperglycemia - SSI with accuchecks Prophylaxis: - SCDs - heparin drip as above -Pantoprazole Lines: - 09/29 left radial art line and right IJ cordis with dual-lumen catheter likely discontinued 10/05 - 09/29 Barba likely discontinue today 10/05 Level 2 follow-up
[2018-10-06] MEDS: FONDAPARINUX 7.5 MG/0.6 ML SQ SCH (16:00)
--- NOTE | 2018-10-06 16:59 | P.PNGI ---
Subjective Interval history: Patient sitting up in chair at bedside Completed lunch meal Reports increased belching and left upper chest wall pain <Stacey Brothers - Last Filed: 10/06/18 16:53> Physical Exam Vital signs: Vital Signs 10/05/18 19:00 10/05/18 20:14 10/05/18 20:15 Temperature 98.7 F Pulse Rate 75 76 Respiratory Rate 16 22 Blood Pressure 97/55 L Pulse Oximetry 95 96 10/05/18 23:00 10/05/18 23:14 10/06/18 03:00 Temperature 98.8 F 98.5 F Pulse Rate 75 75 Respiratory Rate 16 18 16 Blood Pressure 97/55 L 105/70 Pulse Oximetry 97 95 10/06/18 07:00 10/06/18 08:00 10/06/18 11:00 Temperature 97.9 F Pulse Rate 72 71 Respiratory Rate 16 Blood Pressure 98/61 L Pulse Oximetry 95 94 L 10/06/18 13:00 10/06/18 14:00 10/06/18 15:00 Temperature 98.7 F Pulse Rate 72 74 80 Respiratory Rate 16 Blood Pressure 101/64 Pulse Oximetry 96 10/06/18 16:00 Temperature Pulse Rate 86 Respiratory Rate Blood Pressure Pulse Oximetry Intake & Output 10/05/18 10/06/18 10/06/18 18:59 06:59 18:59 Intake Total 1405 / 1405 720 / 720 Output Total 855 / 855 675 / 675 Balance 550 / 550 45 / 45 Weight 82 kg Intake: IV 380 / 380 Heparin/D5W 25,000 U/250 mL 25, 270 / 270 000 unit In 250 ml @ Per Protocol IV.CONT TITRATE PRN Rx #:[id number] Calcium Gluconate Inj 1 GM In 110 / 110 D5W Inj 100 ML @ 110 mls/hr IV. SIG ONCE ONE Rx#:[id number] Oral 1025 / 1025 720 / 720 Output: Urine Amount (Catheter) 855 / 855 675 / 675 Indwelling Temp Sensing 855 / 855 675 / 675 Catheter Other: Date of Last Bowel Movement 10/05/18 10/05/18 10/05/18 # Bowel Movements 3 - Constitutional mild distress - Routine HEENT Exam Head: Present: normocephalic - Routine Respiratory Exam Absent: accessory muscle use - Routine Cardiovascular Exam Present: S1, S2 - Routine Abdominal Exam Present: soft, normoactive bowel sounds. Absent: tenderness, guarding, firm - Routine Skin Exam Present: dry, warm - Routine Neurological Exam Present: alert - Routine Psychiatric Exam Present: normal affect, cooperative - Urinary Catheter Management Indwelling Temp Sensing Catheter Cath placed during this visit: yes, but has since been removed by the nurse Reason for continuing: Decision to DC catheter Insertion date: 09/29/18 Insertion time: 08:30 Removal date: 10/06/18 Removal time: 14:00 <Stacey Brothers - Last Filed: 10/06/18 16:53> Vital signs: Vital Signs 10/05/18 20:14 10/05/18 20:15 10/05/18 23:00 Temperature 98.8 F Pulse Rate 76 75 Respiratory Rate 22 16 Blood Pressure 97/55 L Pulse Oximetry 96 97 10/05/18 23:14 10/06/18 03:00 10/06/18 07:00 Temperature 98.5 F Pulse Rate 75 72 Respiratory Rate 18 16 Blood Pressure 105/70 Pulse Oximetry 95 10/06/18 08:00 10/06/18 11:00 10/06/18 13:00 Temperature 97.9 F Pulse Rate 71 72 Respiratory Rate 16 Blood Pressure 98/61 L Pulse Oximetry 95 94 L 10/06/18 14:00 10/06/18 15:00 10/06/18 16:00 Temperature 98.7 F Pulse Rate 74 80 86 Respiratory Rate 16 Blood Pressure 101/64 Pulse Oximetry 94 L 10/06/18 17:00 10/06/18 18:00 10/06/18 19:41 Temperature Pulse Rate 80 77 Respiratory Rate Blood Pressure Pulse Oximetry 94 L Intake & Output 10/06/18 10/06/18 10/07/18 06:59 18:59 06:59 Intake Total 720 / 720 920 / 920 Output Total 675 / 675 550 / 550 Balance 45 / 45 370 / 370 Weight 82 kg Intake: Oral 720 / 720 920 / 920 Output: Urine Amount (Catheter) 675 / 675 550 / 550 Indwelling Temp Sensing 675 / 675 550 / 550 Catheter Other: Date of Last Bowel Movement 10/05/18 10/05/18 - Urinary Catheter Management Indwelling Temp Sensing Catheter Cath placed during this visit: no <Hemaidan,Ammar - Last Filed: 10/06/18 20:03> Results - Labs CBC & Chem 7: 10/06/18 03:41 10/06/18 03:41 Laboratory Results - last 24 hr 10/05/18 10/05/18 10/06/18 16:51 20:57 03:41 WBC 10.2 RBC 3.46 L Hgb 10.1 L Hct 30.4 L MCV 87.7 MCH 29.2 MCHC 33.2 RDW 15.1 Plt Count 161 D MPV 8.8 PT INR Sodium Potassium Chloride Carbon Dioxide Anion Gap BUN Creatinine Estimated GFR POC Glucose 103 150 H Random Glucose Calcium Phosphorus Magnesium Total Bilirubin AST ALT Alkaline Phosphatase Total Protein Albumin 10/06/18 10/06/18 10/06/18 03:41 03:41 07:40 WBC RBC Hgb Hct MCV MCH MCHC RDW Plt Count MPV PT 13.3 H INR 1.3 Sodium 138 Potassium 3.8 Chloride 102 Carbon Dioxide 24.8 Anion Gap 11 BUN 21 H Creatinine 0.95 Estimated GFR 74 L POC Glucose 161 H Random Glucose 105 Calcium 7.6 L Phosphorus 2.4 L Magnesium 2.6 H Total Bilirubin 1.2 H AST 218 H ALT 520 H Alkaline Phosphatase 383 H Total Protein 6.8 D Albumin 2.8 L 10/06/18 10/06/18 12:06 16:27 WBC RBC Hgb Hct MCV MCH MCHC RDW Plt Count MPV PT INR Sodium Potassium Chloride Carbon Dioxide Anion Gap BUN Creatinine Estimated GFR POC Glucose 163 H 191 H Random Glucose Calcium Phosphorus Magnesium Total Bilirubin AST ALT Alkaline Phosphatase Total Protein Albumin Microbiology 10/01/18 11:39 Blood - Peripheral Aerobic Blood Culture - Final No growth in 5 days 10/01/18 11:39 Blood - Peripheral Anaerobic Blood Culture - Final No growth in 5 days 10/01/18 11:11 Blood - Peripheral Aerobic Blood Culture - Final No growth in 5 days 10/01/18 11:11 Blood - Peripheral Anaerobic Blood Culture - Final No growth in 5 days - Imaging Impressions Bile Acid Absorption NM 10/06/18 00:00 CONCLUSION: 1. Borderline abnormal gallbladder ejection fraction. No evidence of acute cholecystitis. 2. Otherwise within normal limits. Chest X-Ray 10/06/18 06:00 CONCLUSION: 1. Rotated examination with increased opacity in the left lung which may be artifactual. 2. Mild cardiomegaly and apparent left effusion. - Procedures None <Lynn Brotherscey - Last Filed: 10/06/18 16:53> - Labs CBC & Chem 7: 10/06/18 03:41 10/06/18 03:41 Laboratory Results - last 24 hr 10/05/18 10/06/18 10/06/18 20:57 03:41 03:41 WBC 10.2 RBC 3.46 L Hgb 10.1 L Hct 30.4 L MCV 87.7 MCH 29.2 MCHC 33.2 RDW 15.1 Plt Count 161 D MPV 8.8 PT 13.3 H INR 1.3 Sodium Potassium Chloride Carbon Dioxide Anion Gap BUN Creatinine Estimated GFR POC Glucose 150 H Random Glucose Calcium Phosphorus Magnesium Total Bilirubin AST ALT Alkaline Phosphatase Total Protein Albumin 10/06/18 10/06/18 10/06/18 03:41 07:40 12:06 WBC RBC Hgb Hct MCV MCH MCHC RDW Plt Count MPV PT INR Sodium 138 Potassium 3.8 Chloride 102 Carbon Dioxide 24.8 Anion Gap 11 BUN 21 H Creatinine 0.95 Estimated GFR 74 L POC Glucose 161 H 163 H Random Glucose 105 Calcium 7.6 L Phosphorus 2.4 L Magnesium 2.6 H Total Bilirubin 1.2 H AST 218 H ALT 520 H Alkaline Phosphatase 383 H Total Protein 6.8 D Albumin 2.8 L 10/06/18 16:27 WBC RBC Hgb Hct MCV MCH MCHC RDW Plt Count MPV PT INR Sodium Potassium Chloride Carbon Dioxide Anion Gap BUN Creatinine Estimated GFR POC Glucose 191 H Random Glucose Calcium Phosphorus Magnesium Total Bilirubin AST ALT Alkaline Phosphatase Total Protein Albumin Microbiology 10/01/18 11:39 Blood - Peripheral Aerobic Blood Culture - Final No growth in 5 days 10/01/18 11:39 Blood - Peripheral Anaerobic Blood Culture - Final No growth in 5 days 10/01/18 11:11 Blood - Peripheral Aerobic Blood Culture - Final No growth in 5 days 10/01/18 11:11 Blood - Peripheral Anaerobic Blood Culture - Final No growth in 5 days - Imaging Impressions Bile Acid Absorption NM 10/06/18 00:00 CONCLUSION: 1. Borderline abnormal gallbladder ejection fraction. No evidence of acute cholecystitis. 2. Otherwise within normal limits. Chest X-Ray 10/06/18 06:00 CONCLUSION: 1. Rotated examination with increased opacity in the left lung which may be artifactual. 2. Mild cardiomegaly and apparent left effusion. <Golden Renteria - Last Filed: 10/06/18 20:03> Assessment and Plan (1) Elevated LFTs Status: Acute Code(s): R94.5 - Abnormal results of liver function studies - Plan 10/06/2018 Elevated liver enzymes Patient awake and alert sitting up in chair at bedside denies nausea or vomiting. States tolerated solid foods fairly well. Reporting left upper chest wall pain to bedside RN WBC 10.2 hemoglobin 10.1 hematocrit 30.4 platelet count 161 INR 1.3 Total bilirubin 1.2 AST 218 ALT 520 alk phos 383 all trending down Plan -Cardiac diet as tolerated -Continue PPI -Monitor labs-liver function studies -Patient post CABG, will require further evaluation for cholecystitis when stable -Supportive care -Further recommendations to follow This patient has been seen by myself and Dr. Renteria and this note is written on his behalf - Attending Attestation Dr. Renteria <Stacey Brothers - Last Filed: 10/06/18 16:53> (1) Elevated LFTs Status: Acute Code(s): R94.5 - Abnormal results of liver function studies - Plan Patient was seen and examined me, agree with above note, continue monitoring liver function test <Golden Renteria - Last Filed: 10/06/18 20:03>
--- NOTE | 2018-10-06 18:40 | P.PNCA ---
Subjective Interval history: Hurts all over Breathing better Medications and Allergies Active Medications: Active Medications Al Hydroxide/Mg Hydroxide (Milk Of Magnesia Liq) 30 ml PO DAILY [facility] Last Admin: 10/06/18 08:17 Dose: Not Given Albuterol (Duoneb Neb (Prn)) 1 ampul NEB Q2HR NEB PRN PRN Reason: WHEEZING Last Admin: 10/03/18 23:27 Dose: 1 ampul Amiodarone HCl (Cordarone) 200 mg PO Q12HR [facility] Last Admin: 10/02/18 20:05 Dose: 200 mg Aspirin (Aspirin Chew) 81 mg PO DAILY [facility] Last Admin: 10/06/18 08:16 Dose: 81 mg Atorvastatin Calcium (Lipitor) 20 mg PO HS [facility] Last Admin: 10/02/18 20:05 Dose: 20 mg Bisacodyl (Dulcolax Supp) 10 mg RECTAL PRN PRN PRN Reason: SEE LABEL COMMENTS Clopidogrel Bisulfate (Plavix) 75 mg PO DAILY [facility] Last Admin: 10/06/18 08:17 Dose: 75 mg Dextrose (D50w Vial) 50 ml IV.PUSH UNSCH PRN PRN Reason: PER HYPOGLYCEMIA PROTOCOL Docusate Sodium (Colace) 100 mg PO BID [facility] Last Admin: 10/06/18 08:18 Dose: Not Given Fondaparinux (Arixtra Inj) 7.5 mg SQ Q24H [facility] Last Admin: 10/06/18 16:00 Dose: 7.5 mg Glucagon (Glucagon Inj) 1 mg OTHER PRN PRN PRN Reason: For hypoglycemia Insulin Aspart (Novolog Insulin Correctional Sugar Inj) 0 unit SQ ACHS [facility]; Protocol Last Admin: 10/06/18 16:28 Dose: 9 unit Isosorbide Mononitrate (Imdur) 30 mg PO DAILY [facility] Last Admin: 09/30/18 12:01 Dose: Not Given Lactulose (Lactulose Liq) 30 ml PO DAILY PRN PRN Reason: SEVERE CONSITIPATION Morphine Sulfate (Morphine Inj) 2 mg IV.PUSH Q4H PRN PRN Reason: Acute Pain 1-10 Last Admin: 10/06/18 15:58 Dose: 2 mg Multivitamins/Minerals (Theragran-M) 1 tab PO DAILY [facility] Last Admin: 10/06/18 08:17 Dose: 1 tab Mupirocin (Bactroban 2% Nasal Oint) 1 applicatio EACH NARE BID [facility] Last Admin: 10/06/18 08:16 Dose: 1 applicatio Ondansetron HCl (Zofran Inj) 4 mg IV.PUSH Q6H PRN PRN Reason: NAUSEA OR VOMITING Pantoprazole Sodium (Protonix Inj) 40 mg IV.PUSH DAILY [facility] Last Admin: 10/06/18 08:16 Dose: 40 mg Polyethylene Glycol (Miralax) 17 gm PO DAILY [facility] Last Admin: 10/06/18 08:17 Dose: Not Given Ranolazine (Ranexa) 500 mg PO Q12H [facility] Last Admin: 10/06/18 08:16 Dose: 500 mg Senna/Docusate Sodium (Jacqui-Colace) 1 tab PO BID [facility] Last Admin: 10/06/18 08:17 Dose: Not Given Sennosides (Senokot) 17.2 mg PO Q12H PRN PRN Reason: Moderate Constipation Sennosides (Senokot) 8.6 mg PO [facility] Last Admin: 10/05/18 20:51 Dose: Not Given Sertraline HCl (Zoloft) 50 mg PO DAILY [facility] Last Admin: 10/06/18 08:18 Dose: 50 mg Sodium Biphosphate/Sodium Phosphate (Fleets Enema (Adult)) 118 ml RECTAL UNSCH PRN PRN Reason: SEE LABEL COMMENTS Sodium Chloride (Ns Flush) 2 ml IV.FLUSH BID [facility] Last Admin: 10/06/18 08:17 Dose: 2 ml Sodium Chloride (Ns Flush) 2 ml IV.FLUSH PRN PRN PRN Reason: FLUSH AFTER USING IV ACCESS Temazepam (Restoril) 7.5 mg PO [facility] Last Admin: 10/05/18 20:46 Dose: 7.5 mg Throat Lozenges (Chloraseptic [place]) 2 spray OROPHARYNG Q2H PRN PRN Reason: SORE THROAT Last Admin: 10/04/18 21:15 Dose: 2 spray Allergies Allergy/AdvReac Type Severity Reaction Status Date / Time metoprolol Allergy Severe HALLUCINATI Verified 09/23/18 22:25 ONS famotidine Allergy Unknown RASH Verified 09/23/18 22:25 lisinopril Allergy Unknown Itching Verified 09/23/18 22:25 insulin detemir AdvReac Unknown Diarrhea Verified 09/23/18 22:25 Home Medications Medication Instructions Recorded Confirmed Type aspirin [Aspir-81] 81 mg PO DAILY 08/03/18 09/24/18 History atorvastatin 20 mg PO DAILY 08/03/18 09/24/18 History insulin glargine [Lantus U-100 25 unit SUB-Q DAILY 08/03/18 09/24/18 History Insulin] insulin lispro [Humalog U-100 45 unit SUB-Q DAILY 08/03/18 09/24/18 History Insulin] isosorbide mononitrate 30 mg PO QAM 08/03/18 09/24/18 History methocarbamol 500 mg PO QID 08/03/18 09/24/18 History nitroglycerin 0.3 mg SUBLINGUAL Q5-15M PRN 08/03/18 09/24/18 History sertraline 50 mg PO DAILY 08/03/18 09/24/18 History temazepam 7.5 mg PO HS 08/03/18 09/24/18 History ticagrelor [Brilinta] 90 mg PO BID 08/03/18 09/24/18 History Physical Exam Vital signs: Vital Signs 10/05/18 19:00 10/05/18 20:14 10/05/18 20:15 Temperature 98.7 F Pulse Rate 75 76 Respiratory Rate 16 22 Blood Pressure 97/55 L Pulse Oximetry 95 96 10/05/18 23:00 10/05/18 23:14 10/06/18 03:00 Temperature 98.8 F 98.5 F Pulse Rate 75 75 Respiratory Rate 16 18 16 Blood Pressure 97/55 L 105/70 Pulse Oximetry 97 95 10/06/18 07:00 10/06/18 08:00 10/06/18 11:00 Temperature 97.9 F Pulse Rate 72 71 Respiratory Rate 16 Blood Pressure 98/61 L Pulse Oximetry 95 94 L 10/06/18 13:00 10/06/18 14:00 10/06/18 15:00 Temperature 98.7 F Pulse Rate 72 74 80 Respiratory Rate 16 Blood Pressure 101/64 Pulse Oximetry 94 L 10/06/18 16:00 10/06/18 17:00 10/06/18 18:00 Temperature Pulse Rate 86 80 77 Respiratory Rate Blood Pressure Pulse Oximetry Intake & Output 10/05/18 10/06/18 10/06/18 18:59 06:59 18:59 Intake Total 1405 / 1405 720 / 720 920 / 920 Output Total 855 / 855 675 / 675 550 / 550 Balance 550 / 550 45 / 45 370 / 370 Weight 82 kg Intake: IV 380 / 380 Heparin/D5W 25,000 U/250 mL 25, 270 / 270 000 unit In 250 ml @ Per Protocol IV.CONT TITRATE PRN Rx #:[id number] Calcium Gluconate Inj 1 GM In 110 / 110 D5W Inj 100 ML @ 110 mls/hr IV. SIG ONCE ONE Rx#:[id number] Oral 1025 / 1025 720 / 720 920 / 920 Output: Urine Amount (Catheter) 855 / 855 675 / 675 550 / 550 Indwelling Temp Sensing 855 / 855 675 / 675 550 / 550 Catheter Other: Date of Last Bowel Movement 10/05/18 10/05/18 10/05/18 # Bowel Movements 3 Narrative: GENERAL: NAD SKIN: Warm and dry. HEAD: Atraumatic. Normocephalic. EYES: Pupils equal and round. No scleral icterus. No injection or drainage. ENT: No nasal bleeding or discharge. Mucous membranes pink and moist. NECK: Trachea midline. No JVD. CARDIOVASCULAR: Regular rate and rhythm. Sternotomy clean/dry/intact RESPIRATORY: No accessory muscle use. Decreased breath sounds bilaterally GASTROINTESTINAL: Abdomen soft, non-tender, nondistended. Hepatic and splenic margins not palpable. MUSCULOSKELETAL: Extremities without clubbing, cyanosis, or edema. No obvious deformities. NEUROLOGICAL: Awake and alert. No obvious cranial nerve deficits. Motor grossly within normal limits. Five out of 5 muscle strength in the arms and legs. Normal speech. PSYCHIATRIC: Appropriate mood and affect; insight and judgment normal. - Urinary Catheter Management Indwelling Temp Sensing Catheter Cath placed during this visit: yes, but has since been removed by the nurse Reason for continuing: Decision to DC catheter Insertion date: 09/29/18 Insertion time: 08:30 Removal date: 10/06/18 Removal time: 14:00 Results 10/06/18 03:41 10/06/18 03:41 Cardiac Enzymes 10/05/18 10/06/18 Range/Units 05:15 03:41 AST 234 H 218 H (15-37) U/L Coagulation 10/05/18 10/06/18 Range/Units 05:15 03:41 PT 13.3 H (9.8-11.6) sec APTT 49.8 H (23.4-31.7) sec CBC 10/05/18 10/06/18 Range/Units 05:15 03:41 WBC 10.1 10.2 (4.0-11.0) th/mm3 RBC 3.23 L 3.46 L (4.00-5.30) mil/mm3 Hgb 9.6 L 10.1 L (11.6-15.3) gm/dL Hct 28.6 L 30.4 L (35.0-46.0) % Plt Count 120 L D 161 D (150-450) th/mm3 Neut # (Auto) 6.7 (1.8-7.7) th/mm3 Lymph # (Auto) 2.4 (1.0-4.8) th/mm3 Henry # (Auto) 0.8 (0.0-0.9) th/mm3 Eos # (Auto) 0.2 (0.0-0.4) th/mm3 Baso # (Auto) 0.0 (0.0-0.2) th/mm3 Comprehensive Metabolic Panel 10/04/18 10/05/18 10/06/18 Range/Units 19:18 05:15 03:41 Sodium 136 136 138 (136-145) meq/L Potassium 4.3 3.8 3.8 (3.5-5.1) meq/L Chloride 103 103 102 (98-107) meq/L Carbon Dioxide 21.3 21.7 24.8 (21.0-32.0) meq/L BUN 28 H 24 H 21 H (7-18) mg/dL Creatinine 1.06 H 1.07 H 0.95 (0.50-1.00) mg/dL Calcium 7.4 L* 7.4 L* 7.6 L (8.5-10.1) mg/dL AST 234 H 218 H (15-37) U/L ALT 552 H 520 H (10-53) U/L Alkaline Phosphatase 400 H 383 H (45-117) U/L Total Protein 6.2 L 6.2 L 6.8 D (6.4-8.2) g/dL Albumin 2.7 L 2.8 L (3.4-5.0) g/dL Intake and Output 10/06/18 10/06/18 10/06/18 06:59 14:59 22:59 Intake Total 720 / 720 920 / 920 Output Total 675 / 675 550 / 550 Balance 45 / 45 370 / 370 Intake: Oral 720 / 720 920 / 920 Output: Urine Amount (Catheter) 675 / 675 550 / 550 Indwelling Temp Sensing 675 / 675 550 / 550 Catheter Other: Date of Last Bowel Movement 10/05/18 10/05/18 Weight 82 kg - Imaging and Cardiology Imaging: Impressions Chest X-Ray 10/05/18 06:00 CONCLUSION: Apparent mild interval improvement in apparent airspace opacity. Bilateral effusions remain. Bile Acid Absorption NM 10/06/18 00:00 CONCLUSION: 1. Borderline abnormal gallbladder ejection fraction. No evidence of acute cholecystitis. 2. Otherwise within normal limits. Chest X-Ray 10/06/18 06:00 CONCLUSION: 1. Rotated examination with increased opacity in the left lung which may be artifactual. 2. Mild cardiomegaly and apparent left effusion. Assessment and Plan - Assessment (1) Unstable angina Code(s): I20.0 - Unstable angina Status: Acute (2) CAD (coronary artery disease), [place] coronary artery Code(s): I25.10 - Atherosclerotic heart disease of [place] coronary artery without angina pectoris Status: Acute (3) Diabetes mellitus Code(s): E11.9 - Type 2 diabetes mellitus without complications Status: Chronic (4) Acute ST elevation myocardial infarction (STEMI) Code(s): I21.3 - ST elevation (STEMI) myocardial infarction of unspecified site Status: Acute - Plan 1) CABG x4 2) Jacqui-procedure STEMI Found to have extensive thrombus in both [place] vessels as well as grafts RAMEY to LAD with competitive flow, most likely will occlude Thrombus in LAD aspirated, distal LAD unable to pass wire past the anastomosis site SVG to OM1/OM2 occluded with extensive thrombus MAXWELL x 2 to [place] OM1 MAXWELL to [place] LCx POBA of [place] OM2 RCA stents patent PDA occluded where it was previously jailed Unable to find SVG to PDA [place] to be small vessel supplying very little territory ASA/Plavix 3) Intubated s/p extubation 4) Hypercoagulable state Appreciate Hematology consultation Most likely anticoagulation/antiplatelet combination on discharge HIT YARITZA positive All heparin products stopped Placed on Arixtra Eventual oral anticoagulation 5) Bedside HAKAN done with Dr. Enriquez EF 45%, inferolateral wall akinetic No significant valvulopathy. Bedside echo EF 40-45% 6) Fluid overload state from 2 units PRBC Agree with diuresis as possible 7) LFTs trending down Concern for acalculous cholecystitis but HIDA scan showing borderline normal ejection fraction 8) Repeat echo with concern for thrombus in the apex of the RV Con't with anticoagulation
[2018-10-06 21:20] LABS: Hepatitis A IgM Antibody Nonreactive (Nonreactive); Hepatitits B Surface Antigen Nonreactive (Nonreactive)
[2018-10-07 04:35] LABS: Hematocrit 28.4 % (35.0-46.0); Hemoglobin 9.6 gm/dL (11.6-15.3); Mean Corpuscular HGB Conc 33.7 % (32.0-36.0); Mean Corpuscular Hemoglobin 29.7 pg (27.0-34.0); Mean Corpuscular Volume 88.3 fL (80.0-100.0); Mean Platelet Volume 8.4 fL (7.0-11.0); Platelet Count 197 th/mm3 (150-450); Red Blood Count 3.21 mil/mm3 (4.00-5.30); Red Cell Distribution Width 15.1 % (11.6-17.2); White Blood Count 8.7 th/mm3 (4.0-11.0)
[2018-10-07 05:02] LABS: Calcium 7.5 mg/dL (8.5-10.1); Carbon Dioxide 22.7 meq/L (21.0-32.0); Magnesium 2.6 mg/dL (1.5-2.5)
[2018-10-07] MEDS: Pantoprazole Inj 40 MG Vial IV.PUSH SCH (08:06)
[2018-10-07] MEDS: Senna/Docusate Sodium 8.6/50 MG Tablet PO SCH ×2 (08:07→20:50)
[2018-10-07] MEDS: Ranolazine 500 MG 12HR ER Tablet PO SCH ×2 (08:07→20:50)
[2018-10-07] MEDS: Morphine Inj 4 MG/ML Vial IV.PUSH PRN ×3 (08:07→16:31)
[2018-10-07] MEDS: Insulin NovoLOG Aspart Correctional Sugar Inj SQ SCH ×4 (08:07→23:01)
[2018-10-07] MEDS: Sertraline 50 MG Tablet PO SCH (08:07)
[2018-10-07] MEDS: Multivitamin/Minerals Therapeutic Tablet PO SCH (08:07)
[2018-10-07] MEDS: Sodium Chloride 0.9% 2 ML Flush BID IV.FLUSH SCH ×2 (08:08→23:00)
[2018-10-07] MEDS: Polyethylene Glycol 3350 17 GM Packet PO SCH (08:08)
[2018-10-07] MEDS: Docusate Sodium 100 MG Capsule PO SCH ×2 (08:08→20:50)
[2018-10-07] MEDS: Mupirocin 2% Nasal Oint Topical Syringe EACH NARE SCH ×2 (08:08→20:50)
--- NOTE | 2018-10-07 14:20 | P.PNCV ---
- Note Subjective/Hospital Course: sts data discussed with pt RISK SCORES About the STS Risk Calculator Procedure: CAB Only Risk of Mortality: 0.745% Morbidity or Mortality: 8.994% Long Length of Stay: 3.108% Short Length of Stay: 56.144% Permanent Stroke: 0.567% Prolonged Ventilation: 6.252% DSW Infection: 0.387% Renal Failure: 1.922% Reoperation: 3.349% 58-year-old female with a significant history of coronary artery disease the presented to the ED for evaluation of chest pain. Patient has had chest pain for about a week. Per patient is progressively getting worse. She denies any urinary or bowel movement issues. She states that the pain gets worse with stress and movement. She took 4 nitro with minimal improvement of the symptoms which was what prompted her evaluation. Patient was admitted recently in July for evaluation of similar. She had another heart cath that showed . Significant multivessel disease, although overall small vessels. She did not had stenting at that time and they thought that she could have increase of her medications and may be this will help with her symptoms but she continues to have symptoms. PMH: CAD/ LA/ Stents/ HTN, HLP, DM insulin dependent EF 58% 09/26 pt on heparin gtt, 3 mcq of NTG will resume imdur and dc NTG, pt pain free eval PRU in am for timing of surgery off Brilinta since Thursday 09/27 off NTG gtt / on imdur/ heparin gtt, painfree PRU>250 stable for surgery on 09/28 doing well, no chest pain during the night on heparin gtt stable for surgery in am 09/29 SURGICAL PROCEDURE 1. Urgent Off-pump Coronary Artery Bypass Grafting x 4 with Left Internal Mammary Artery (RAMEY) to Left Anterior Descending (LAD), reverse saphenous vein graft to obtuse Marginal1 and sequentially to the Obtuse Marginal 2 branches of the left Circumflex artery, reverse saphenous vein graft to the posterior Descending branch of the right Coronary artery 2. Left leg Endoscopic Vein [place] 3. Intraoperative Vein Mapping. 09/30 Clinically and hemodynamic is stable Events noted with hyper acute thrombosis of all the grafts. PCI to the circumflex distribution Greatly appreciate Dr. Melissa and Dr. Enriquez's assistance in her care Wean to extubate today Presently on aspirin Plavix and heparin drip. Will defer to Dr. Melissa regarding long-term antiplatelet therapy Greatly appreciate Dr. Curry's input regarding further workup of her thrombotic state 10/01 Doing well this morning Awake alert oriented and responds appropriately verbal commands Weaning ventilator with plans to extubate today Hemodynamically stable Maintain chest tubes to drainage for now 10/02 Remains weak Not taking deep breaths or coughing Needs PT OT and incentive spirometry Likely DC chest tubes in a.m. once she has gotten out of bed 10/03 minimal drainage in chest tube will dc today / heparin off to remove chest tubes, then resume weak, sleepy , will dc narcotics for now elevated LFT tylenol , amiodarone and statin held ammonia level 53 yesterday on partial NRB, needs aggressive pulm toileting OOB with assistance/ PT 10/04 remains on partial NRB mask diuresis increased PLT 83, continue ASA, plavix and heparin gtt for now with recent acute graft closure await final decision regarding NOAC on pt / was on Brilinta before surgery 10/05 up in chair, now on nasal cannula PLT improving 120 awake input from cardiology and Heme/ concerning oral anticoagulation/ continue PT/OT eval for transfer from CVICU in am 10/06 HIT + , off all heparin products / on arixtra ASA, plavix on 2 liter nasal cannula/ CXR noted dose with additional lasix this am for Hida scan today will transfer out of CVICU today 10/07 recheck LFT in am Heme / to eval for transitioning arixtra to coumadin / once LFT recovered remains off amiodarone / statin BP and heart rhythm stable continue PT/OT/ on room air daily diuresis Objective: Vital Signs - 24 hr 10/06/18 15:00 10/06/18 16:00 10/06/18 17:00 Temperature 98.7 F Pulse Rate 80 86 80 Respiratory Rate 16 Blood Pressure 101/64 Pulse Oximetry 94 L 10/06/18 18:00 10/06/18 19:00 10/06/18 19:41 Temperature 98.8 F Pulse Rate 77 78 Respiratory Rate 16 Blood Pressure 92/57 L Pulse Oximetry 96 94 L 10/06/18 20:00 10/06/18 21:00 10/06/18 22:00 Temperature Pulse Rate 75 72 71 Respiratory Rate Blood Pressure Pulse Oximetry 96 10/06/18 23:00 10/07/18 00:00 10/07/18 01:00 Temperature 98.3 F Pulse Rate 80 71 71 Respiratory Rate 16 Blood Pressure 97/67 L Pulse Oximetry 96 10/07/18 02:00 10/07/18 03:00 10/07/18 04:00 Temperature 98.4 F Pulse Rate 73 71 71 Respiratory Rate 16 Blood Pressure 99/65 L Pulse Oximetry 96 10/07/18 05:00 10/07/18 05:48 10/07/18 07:00 Temperature 98.0 F Pulse Rate 70 70 77 Respiratory Rate 20 Blood Pressure 104/63 Pulse Oximetry 94 L 10/07/18 08:00 10/07/18 09:00 10/07/18 10:00 Temperature Pulse Rate 81 76 78 Respiratory Rate Blood Pressure Pulse Oximetry 97 10/07/18 11:00 10/07/18 12:00 10/07/18 13:00 Temperature 98.2 F Pulse Rate 75 75 80 Respiratory Rate 20 Blood Pressure 94/64 L Pulse Oximetry 96 10/07/18 14:00 Temperature Pulse Rate 78 Respiratory Rate Blood Pressure Pulse Oximetry Labs: Laboratory Results - last 12 hr 10/07/18 10/07/18 10/07/18 04:07 04:07 07:32 WBC 8.7 RBC 3.21 L Hgb 9.6 L Hct 28.4 L MCV 88.3 MCH 29.7 MCHC 33.7 RDW 15.1 Plt Count 197 MPV 8.4 Sodium 134 L Potassium 4.0 Chloride 100 Carbon Dioxide 22.7 Anion Gap 11 BUN 16 Creatinine 0.86 Estimated GFR 83 L POC Glucose 203 H Random Glucose 140 H Calcium 7.5 L Magnesium 2.6 H 10/07/18 10:51 WBC RBC Hgb Hct MCV MCH MCHC RDW Plt Count MPV Sodium Potassium Chloride Carbon Dioxide Anion Gap BUN Creatinine Estimated GFR POC Glucose 221 H Random Glucose Calcium Magnesium Result Diagrams: 10/07/18 04:07 10/07/18 04:07 - Plan (1) S/P coronary artery bypass graft x 4 Plan: off statin, amiodarone 2/2 elevated LFT OOB to chair on room air / diuresis daily / remains on ASA, Plavix , (2) Renal insufficiency Plan: indices improving (3) CAD (coronary artery disease), [place] coronary artery Plan: ASA, Heparin gtt (4) Diabetes mellitus Plan: diabetic diet insulin sliding scale HGB A1C 8.6 (5) Subsequent non-ST elevation (NSTEMI) myocardial infarction Plan: Left heart catheterization, coronary angiogram, bypass angiogram, complex case, moderate sedation at 128 minutes, [place] drug-eluting stent x2 (proximal 2 x 12, mid 2 x 30) to first obtuse marginal, balloon angioplasty of the second obtuse marginal, [place] drug-eluting stent (2 x 30) to mid left circumflex, aspiration thrombectomy of LAD. (6) Unstable angina Plan: pain free at this time (7) Elevated LFTs Plan: tylenol dc amiodarone dc statin dc f/u levels improving GI following US calculus cholecystitis / Hida scan unremarkable (8) Heparin induced thrombocytopenia (HIT) Plan: off all heparin products on arixtra / heme to decide when to transition to coumadin
[2018-10-07] MEDS: FONDAPARINUX 7.5 MG/0.6 ML SQ SCH (16:31)
--- NOTE | 2018-10-07 18:03 | P.PNCA ---
Subjective Interval history: Appears more comfortable Sitting up in the chair, off oxygen Medications and Allergies Active Medications: Active Medications Al Hydroxide/Mg Hydroxide (Milk Of Magnesia Liq) 30 ml PO DAILY [facility] Last Admin: 10/07/18 08:08 Dose: Not Given Albuterol (Duoneb Neb (Prn)) 1 ampul NEB Q2HR NEB PRN PRN Reason: WHEEZING Last Admin: 10/03/18 23:27 Dose: 1 ampul Amiodarone HCl (Cordarone) 200 mg PO Q12HR [facility] Last Admin: 10/02/18 20:05 Dose: 200 mg Aspirin (Aspirin Chew) 81 mg PO DAILY [facility] Last Admin: 10/07/18 08:07 Dose: 81 mg Atorvastatin Calcium (Lipitor) 20 mg PO HS [facility] Last Admin: 10/02/18 20:05 Dose: 20 mg Bisacodyl (Dulcolax Supp) 10 mg RECTAL PRN PRN PRN Reason: SEE LABEL COMMENTS Calcium Carbonate (Tums Chew) 500 mg PO BID [facility] Clopidogrel Bisulfate (Plavix) 75 mg PO DAILY [facility] Last Admin: 10/07/18 08:07 Dose: 75 mg Dextrose (D50w Vial) 50 ml IV.PUSH UNSCH PRN PRN Reason: PER HYPOGLYCEMIA PROTOCOL Docusate Sodium (Colace) 100 mg PO BID [facility] Last Admin: 10/07/18 08:08 Dose: Not Given Fondaparinux (Arixtra Inj) 7.5 mg SQ Q24H [facility] Last Admin: 10/07/18 16:31 Dose: 7.5 mg Furosemide (Lasix Inj) 40 mg IV.PUSH DAILY [facility] Last Admin: 10/07/18 14:46 Dose: 40 mg Glucagon (Glucagon Inj) 1 mg OTHER PRN PRN PRN Reason: For hypoglycemia Insulin Aspart (Novolog Insulin Correctional Sugar Inj) 0 unit SQ [facility]; Protocol Last Admin: 10/07/18 16:34 Dose: Not Given Insulin Detemir (Levemir Inj) 10 unit SQ [facility] Isosorbide Mononitrate (Imdur) 30 mg PO DAILY [facility] Last Admin: 09/30/18 12:01 Dose: Not Given Lactulose (Lactulose Liq) 30 ml PO DAILY PRN PRN Reason: SEVERE CONSITIPATION Morphine Sulfate (Morphine Inj) 2 mg IV.PUSH Q4H PRN PRN Reason: Acute Pain 1-10 Last Admin: 10/07/18 16:31 Dose: 2 mg Multivitamins/Minerals (Theragran-M) 1 tab PO DAILY [facility] Last Admin: 10/07/18 08:07 Dose: 1 tab Mupirocin (Bactroban 2% Nasal Oint) 1 applicatio EACH NARE BID [facility] Last Admin: 10/07/18 08:08 Dose: Not Given Ondansetron HCl (Zofran Inj) 4 mg IV.PUSH Q6H PRN PRN Reason: NAUSEA OR VOMITING Pantoprazole Sodium (Protonix Inj) 40 mg IV.PUSH DAILY [facility] Last Admin: 10/07/18 08:06 Dose: 40 mg Polyethylene Glycol (Miralax) 17 gm PO DAILY [facility] Last Admin: 10/07/18 08:08 Dose: Not Given Potassium Chloride (Klor-Con 10) 20 meq PO DAILY [facility] Last Admin: 10/07/18 14:46 Dose: 20 meq Ranolazine (Ranexa) 500 mg PO Q12H [facility] Last Admin: 10/07/18 08:07 Dose: 500 mg Senna/Docusate Sodium (Jacqui-Colace) 1 tab PO BID [facility] Last Admin: 10/07/18 08:07 Dose: 1 tab Sennosides (Senokot) 17.2 mg PO Q12H PRN PRN Reason: Moderate Constipation Sennosides (Senokot) 8.6 mg PO [facility] Last Admin: 10/06/18 21:15 Dose: 8.6 mg Sertraline HCl (Zoloft) 50 mg PO DAILY [facility] Last Admin: 10/07/18 08:07 Dose: 50 mg Sodium Biphosphate/Sodium Phosphate (Fleets Enema (Adult)) 118 ml RECTAL UNSCH PRN PRN Reason: SEE LABEL COMMENTS Sodium Chloride (Ns Flush) 2 ml IV.FLUSH BID [facility] Last Admin: 10/07/18 08:08 Dose: 2 ml Sodium Chloride (Ns Flush) 2 ml IV.FLUSH PRN PRN PRN Reason: FLUSH AFTER USING IV ACCESS Temazepam (Restoril) 7.5 mg PO [facility] Last Admin: 10/06/18 21:15 Dose: 7.5 mg Throat Lozenges (Chloraseptic [place]) 2 spray OROPHARYNG Q2H PRN PRN Reason: SORE THROAT Last Admin: 10/04/18 21:15 Dose: 2 spray Allergies Allergy/AdvReac Type Severity Reaction Status Date / Time metoprolol Allergy Severe HALLUCINATI Verified 09/23/18 22:25 ONS famotidine Allergy Unknown RASH Verified 09/23/18 22:25 lisinopril Allergy Unknown Itching Verified 09/23/18 22:25 insulin detemir AdvReac Unknown Diarrhea Verified 09/23/18 22:25 Home Medications Medication Instructions Recorded Confirmed Type aspirin [Aspir-81] 81 mg PO DAILY 08/03/18 09/24/18 History atorvastatin 20 mg PO DAILY 08/03/18 09/24/18 History insulin glargine [Lantus U-100 25 unit SUB-Q DAILY 08/03/18 09/24/18 History Insulin] insulin lispro [Humalog U-100 45 unit SUB-Q DAILY 08/03/18 09/24/18 History Insulin] isosorbide mononitrate 30 mg PO QAM 08/03/18 09/24/18 History methocarbamol 500 mg PO QID 08/03/18 09/24/18 History nitroglycerin 0.3 mg SUBLINGUAL Q5-15M PRN 08/03/18 09/24/18 History sertraline 50 mg PO DAILY 08/03/18 09/24/18 History temazepam 7.5 mg PO HS 08/03/18 09/24/18 History ticagrelor [Brilinta] 90 mg PO BID 08/03/18 09/24/18 History Physical Exam Vital signs: Vital Signs 10/06/18 19:00 10/06/18 19:41 10/06/18 20:00 Temperature 98.8 F Pulse Rate 78 75 Respiratory Rate 16 Blood Pressure 92/57 L Pulse Oximetry 96 94 L 96 10/06/18 21:00 10/06/18 22:00 10/06/18 23:00 Temperature 98.3 F Pulse Rate 72 71 80 Respiratory Rate 16 Blood Pressure 97/67 L Pulse Oximetry 96 10/07/18 00:00 10/07/18 01:00 10/07/18 02:00 Temperature Pulse Rate 71 71 73 Respiratory Rate Blood Pressure Pulse Oximetry 10/07/18 03:00 10/07/18 04:00 10/07/18 05:00 Temperature 98.4 F Pulse Rate 71 71 70 Respiratory Rate 16 Blood Pressure 99/65 L Pulse Oximetry 96 10/07/18 05:48 10/07/18 07:00 10/07/18 08:00 Temperature 98.0 F Pulse Rate 70 77 81 Respiratory Rate 20 Blood Pressure 104/63 Pulse Oximetry 94 L 97 10/07/18 09:00 10/07/18 10:00 10/07/18 11:00 Temperature 98.2 F Pulse Rate 76 78 75 Respiratory Rate 20 Blood Pressure 94/64 L Pulse Oximetry 96 10/07/18 12:00 10/07/18 13:00 10/07/18 14:00 Temperature Pulse Rate 75 80 78 Respiratory Rate Blood Pressure Pulse Oximetry 10/07/18 15:00 10/07/18 16:00 10/07/18 17:00 Temperature 98.3 F Pulse Rate 74 78 70 Respiratory Rate 20 Blood Pressure 91/59 L Pulse Oximetry 97 Intake & Output 10/06/18 10/07/18 10/07/18 18:59 06:59 18:59 Intake Total 920 / 920 240 / 240 1500 / 1500 Output Total 550 / 550 500 / 500 1200 / 1200 Balance 370 / 370 -260 / -260 300 / 300 Weight 83 kg Intake: Oral 920 / 920 240 / 240 1500 / 1500 Output: Urine 500 / 500 1200 / 1200 Urine Amount (Catheter) 550 / 550 Indwelling Temp Sensing 550 / 550 Catheter Other: Date of Last Bowel Movement 10/05/18 10/07/18 # Bowel Movements 1 Narrative: GENERAL: NAD SKIN: Warm and dry. HEAD: Atraumatic. Normocephalic. EYES: Pupils equal and round. No scleral icterus. No injection or drainage. ENT: No nasal bleeding or discharge. Mucous membranes pink and moist. NECK: Trachea midline. No JVD. CARDIOVASCULAR: Regular rate and rhythm. Sternotomy clean/dry/intact RESPIRATORY: No accessory muscle use. Decreased breath sounds bilaterally GASTROINTESTINAL: Abdomen soft, non-tender, nondistended. Hepatic and splenic margins not palpable. MUSCULOSKELETAL: Extremities without clubbing, cyanosis, or edema. No obvious deformities. NEUROLOGICAL: Awake and alert. No obvious cranial nerve deficits. Motor grossly within normal limits. Five out of 5 muscle strength in the arms and legs. Normal speech. PSYCHIATRIC: Appropriate mood and affect; insight and judgment normal. - Urinary Catheter Management Indwelling Temp Sensing Catheter Cath placed during this visit: yes, but has since been removed by the nurse Reason for continuing: Decision to DC catheter Insertion date: 09/29/18 Insertion time: 08:30 Removal date: 10/06/18 Removal time: 14:00 Results 10/07/18 04:07 10/07/18 04:07 Cardiac Enzymes 10/06/18 Range/Units 03:41 AST 218 H (15-37) U/L Coagulation 10/06/18 Range/Units 03:41 PT 13.3 H (9.8-11.6) sec CBC 10/06/18 10/07/18 Range/Units 03:41 04:07 WBC 10.2 8.7 (4.0-11.0) th/mm3 RBC 3.46 L 3.21 L (4.00-5.30) mil/mm3 Hgb 10.1 L 9.6 L (11.6-15.3) gm/dL Hct 30.4 L 28.4 L (35.0-46.0) % Plt Count 161 D 197 (150-450) th/mm3 Comprehensive Metabolic Panel 10/06/18 10/07/18 Range/Units 03:41 04:07 Sodium 138 134 L (136-145) meq/L Potassium 3.8 4.0 (3.5-5.1) meq/L Chloride 102 100 (98-107) meq/L Carbon Dioxide 24.8 22.7 (21.0-32.0) meq/L BUN 21 H 16 (7-18) mg/dL Creatinine 0.95 0.86 (0.50-1.00) mg/dL Calcium 7.6 L 7.5 L (8.5-10.1) mg/dL AST 218 H (15-37) U/L ALT 520 H (10-53) U/L Alkaline Phosphatase 383 H (45-117) U/L Total Protein 6.8 D (6.4-8.2) g/dL Albumin 2.8 L (3.4-5.0) g/dL Intake and Output 10/07/18 10/07/18 10/07/18 06:59 14:59 22:59 Intake Total 240 / 240 1500 / 1500 Output Total 500 / 500 1200 / 1200 Balance -260 / -260 300 / 300 Intake: Oral 240 / 240 1500 / 1500 Output: Urine 500 / 500 1200 / 1200 Other: Date of Last Bowel Movement 10/07/18 # Bowel Movements 1 Weight 83 kg - Imaging and Cardiology Imaging: Impressions Bile Acid Absorption NM 10/06/18 00:00 CONCLUSION: 1. Borderline abnormal gallbladder ejection fraction. No evidence of acute cholecystitis. 2. Otherwise within normal limits. Chest X-Ray 10/06/18 06:00 CONCLUSION: 1. Rotated examination with increased opacity in the left lung which may be artifactual. 2. Mild cardiomegaly and apparent left effusion. Assessment and Plan - Assessment (1) Unstable angina Code(s): I20.0 - Unstable angina Status: Acute (2) CAD (coronary artery disease), [place] coronary artery Code(s): I25.10 - Atherosclerotic heart disease of [place] coronary artery without angina pectoris Status: Acute (3) Diabetes mellitus Code(s): E11.9 - Type 2 diabetes mellitus without complications Status: Chronic (4) Acute ST elevation myocardial infarction (STEMI) Code(s): I21.3 - ST elevation (STEMI) myocardial infarction of unspecified site Status: Acute - Plan 1) CABG x4 2) Jacqui-procedure STEMI Found to have extensive thrombus in both [place] vessels as well as grafts RAMEY to LAD with competitive flow, most likely will occlude Thrombus in LAD aspirated, distal LAD unable to pass wire past the anastomosis site SVG to OM1/OM2 occluded with extensive thrombus MAXWELL x 2 to [place] OM1 MAXWELL to [place] LCx POBA of [place] OM2 RCA stents patent PDA occluded where it was previously jailed Unable to find SVG to PDA [place] to be small vessel supplying very little territory ASA/Plavix 3) Intubated s/p extubation 4) Hypercoagulable state Appreciate Hematology consultation Most likely anticoagulation/antiplatelet combination on discharge HIT YARITZA positive All heparin products stopped Placed on Arixtra Eventual oral anticoagulation Discussed with Heme/Onc 5) Bedside HAKAN done with Dr. Enriquez EF 45%, inferolateral wall akinetic No significant valvulopathy. Bedside echo EF 40-45%, repeat 50-55% 6) Fluid overload state from 2 units PRBC Agree with diuresis as possible 7) LFTs trending down Concern for acalculous cholecystitis but HIDA scan showing borderline normal ejection fraction 8) Repeat echo with concern for thrombus in the apex of the RV Con't with anticoagulation 9) If concerns over the weekend, please call the service for covering physician
--- NOTE | 2018-10-07 18:32 | P.PNGI ---
Subjective Interval history: Patient sitting up in chair at bedside Family visiting Patient reporting belching Denies abdominal pain nausea or vomiting Reports chest wall discomfort, encouraged to continue to use pillow for splinting <Stacey Brothers - Last Filed: 10/07/18 18:26> Physical Exam Vital signs: Vital Signs 10/06/18 19:00 10/06/18 19:41 10/06/18 20:00 Temperature 98.8 F Pulse Rate 78 75 Respiratory Rate 16 Blood Pressure 92/57 L Pulse Oximetry 96 94 L 96 10/06/18 21:00 10/06/18 22:00 10/06/18 23:00 Temperature 98.3 F Pulse Rate 72 71 80 Respiratory Rate 16 Blood Pressure 97/67 L Pulse Oximetry 96 10/07/18 00:00 10/07/18 01:00 10/07/18 02:00 Temperature Pulse Rate 71 71 73 Respiratory Rate Blood Pressure Pulse Oximetry 10/07/18 03:00 10/07/18 04:00 10/07/18 05:00 Temperature 98.4 F Pulse Rate 71 71 70 Respiratory Rate 16 Blood Pressure 99/65 L Pulse Oximetry 96 10/07/18 05:48 10/07/18 07:00 10/07/18 08:00 Temperature 98.0 F Pulse Rate 70 77 81 Respiratory Rate 20 Blood Pressure 104/63 Pulse Oximetry 94 L 97 10/07/18 09:00 10/07/18 10:00 10/07/18 11:00 Temperature 98.2 F Pulse Rate 76 78 75 Respiratory Rate 20 Blood Pressure 94/64 L Pulse Oximetry 96 10/07/18 12:00 10/07/18 13:00 10/07/18 14:00 Temperature Pulse Rate 75 80 78 Respiratory Rate Blood Pressure Pulse Oximetry 10/07/18 15:00 10/07/18 16:00 10/07/18 17:00 Temperature 98.3 F Pulse Rate 74 78 70 Respiratory Rate 20 Blood Pressure 91/59 L Pulse Oximetry 97 10/07/18 18:00 Temperature Pulse Rate 77 Respiratory Rate Blood Pressure Pulse Oximetry Intake & Output 10/06/18 10/07/18 10/07/18 18:59 06:59 18:59 Intake Total 920 / 920 240 / 240 1500 / 1500 Output Total 550 / 550 500 / 500 1200 / 1200 Balance 370 / 370 -260 / -260 300 / 300 Weight 83 kg Intake: Oral 920 / 920 240 / 240 1500 / 1500 Output: Urine 500 / 500 1200 / 1200 Urine Amount (Catheter) 550 / 550 Indwelling Temp Sensing 550 / 550 Catheter Other: Date of Last Bowel Movement 10/05/18 10/07/18 # Bowel Movements 1 - Constitutional no acute distress - Routine HEENT Exam Head: Present: normocephalic - Routine Respiratory Exam Present: CTA bilaterally. Absent: accessory muscle use - Routine Cardiovascular Exam Present: S1, S2 - Routine Abdominal Exam Present: soft, normoactive bowel sounds. Absent: tenderness, distended, guarding, firm - Routine Skin Exam Present: dry, warm - Routine Neurological Exam Present: alert, oriented X3 - Urinary Catheter Management Indwelling Temp Sensing Catheter Cath placed during this visit: yes, but has since been removed by the nurse Reason for continuing: Decision to DC catheter Insertion date: 09/29/18 Insertion time: 08:30 Removal date: 10/06/18 Removal time: 14:00 <Stacey Brothers - Last Filed: 10/07/18 18:26> Vital signs: Vital Signs 10/06/18 19:41 10/06/18 20:00 10/06/18 21:00 Temperature Pulse Rate 75 72 Respiratory Rate Blood Pressure Pulse Oximetry 94 L 96 10/06/18 22:00 10/06/18 23:00 10/07/18 00:00 Temperature 98.3 F Pulse Rate 71 80 71 Respiratory Rate 16 Blood Pressure 97/67 L Pulse Oximetry 96 10/07/18 01:00 10/07/18 02:00 10/07/18 03:00 Temperature 98.4 F Pulse Rate 71 73 71 Respiratory Rate 16 Blood Pressure 99/65 L Pulse Oximetry 96 10/07/18 04:00 10/07/18 05:00 10/07/18 05:48 Temperature Pulse Rate 71 70 70 Respiratory Rate Blood Pressure Pulse Oximetry 10/07/18 07:00 10/07/18 08:00 10/07/18 09:00 Temperature 98.0 F Pulse Rate 77 81 76 Respiratory Rate 20 Blood Pressure 104/63 Pulse Oximetry 94 L 97 10/07/18 10:00 10/07/18 11:00 10/07/18 12:00 Temperature 98.2 F Pulse Rate 78 75 75 Respiratory Rate 20 Blood Pressure 94/64 L Pulse Oximetry 96 10/07/18 13:00 10/07/18 14:00 10/07/18 15:00 Temperature 98.3 F Pulse Rate 80 78 74 Respiratory Rate 20 Blood Pressure 91/59 L Pulse Oximetry 97 10/07/18 16:00 10/07/18 17:00 10/07/18 18:00 Temperature Pulse Rate 78 70 77 Respiratory Rate Blood Pressure Pulse Oximetry Intake & Output 10/07/18 10/07/18 10/08/18 06:59 18:59 06:59 Intake Total 240 / 240 1500 / 1500 Output Total 500 / 500 1200 / 1200 Balance -260 / -260 300 / 300 Weight 83 kg Intake: Oral 240 / 240 1500 / 1500 Output: Urine 500 / 500 1200 / 1200 Other: Date of Last Bowel Movement 10/07/18 # Bowel Movements 1 - Urinary Catheter Management Indwelling Temp Sensing Catheter Cath placed during this visit: no <[email or web address] - Last Filed: 10/07/18 19:18> Results - Labs CBC & Chem 7: 10/07/18 04:07 10/07/18 04:07 Laboratory Results - last 24 hr 10/06/18 10/06/18 10/07/18 17:43 20:39 04:07 WBC 8.7 RBC 3.21 L Hgb 9.6 L Hct 28.4 L MCV 88.3 MCH 29.7 MCHC 33.7 RDW 15.1 Plt Count 197 MPV 8.4 Sodium Potassium Chloride Carbon Dioxide Anion Gap BUN Creatinine Estimated GFR POC Glucose 197 H Random Glucose Calcium Magnesium Hepatitis A IgM Ab Nonreactive Hep Bs Antigen Nonreactive Hep B Core IgM Ab Nonreactive Hep C IgG Ab Nonreactive 10/07/18 10/07/18 10/07/18 04:07 07:32 10:51 WBC RBC Hgb Hct MCV MCH MCHC RDW Plt Count MPV Sodium 134 L Potassium 4.0 Chloride 100 Carbon Dioxide 22.7 Anion Gap 11 BUN 16 Creatinine 0.86 Estimated GFR 83 L POC Glucose 203 H 221 H Random Glucose 140 H Calcium 7.5 L Magnesium 2.6 H Hepatitis A IgM Ab Hep Bs Antigen Hep B Core IgM Ab Hep C IgG Ab 10/07/18 16:34 WBC RBC Hgb Hct MCV MCH MCHC RDW Plt Count MPV Sodium Potassium Chloride Carbon Dioxide Anion Gap BUN Creatinine Estimated GFR POC Glucose 115 H Random Glucose Calcium Magnesium Hepatitis A IgM Ab Hep Bs Antigen Hep B Core IgM Ab Hep C IgG Ab - Procedures None <Stacey Brothers - Last Filed: 10/07/18 18:26> - Labs CBC & Chem 7: 10/07/18 04:07 10/07/18 04:07 Laboratory Results - last 24 hr 10/06/18 10/06/18 10/07/18 17:43 20:39 04:07 WBC 8.7 RBC 3.21 L Hgb 9.6 L Hct 28.4 L MCV 88.3 MCH 29.7 MCHC 33.7 RDW 15.1 Plt Count 197 MPV 8.4 Sodium Potassium Chloride Carbon Dioxide Anion Gap BUN Creatinine Estimated GFR POC Glucose 197 H Random Glucose Calcium Magnesium Hepatitis A IgM Ab Nonreactive Hep Bs Antigen Nonreactive Hep B Core IgM Ab Nonreactive Hep C IgG Ab Nonreactive 10/07/18 10/07/18 10/07/18 04:07 07:32 10:51 WBC RBC Hgb Hct MCV MCH MCHC RDW Plt Count MPV Sodium 134 L Potassium 4.0 Chloride 100 Carbon Dioxide 22.7 Anion Gap 11 BUN 16 Creatinine 0.86 Estimated GFR 83 L POC Glucose 203 H 221 H Random Glucose 140 H Calcium 7.5 L Magnesium 2.6 H Hepatitis A IgM Ab Hep Bs Antigen Hep B Core IgM Ab Hep C IgG Ab 10/07/18 16:34 WBC RBC Hgb Hct MCV MCH MCHC RDW Plt Count MPV Sodium Potassium Chloride Carbon Dioxide Anion Gap BUN Creatinine Estimated GFR POC Glucose 115 H Random Glucose Calcium Magnesium Hepatitis A IgM Ab Hep Bs Antigen Hep B Core IgM Ab Hep C IgG Ab <Golden Renteria - Last Filed: 10/07/18 19:18> Assessment and Plan (1) Elevated LFTs Status: Acute Code(s): R94.5 - Abnormal results of liver function studies - Plan 10/07/2018 Elevated liver enzymes Patient awake and alert sitting up in chair at bedside. Denies any nausea or vomiting Hemoglobin 9.6 hematocrit 28.4 platelet count 197 10/06/2018 AST 218 ALT 520 alk phos 383 all trending down-likely related to medications/shock liver as patient is post CABG Plan -Cardiac diet as tolerated -Continue to monitor liver function -Supportive care -Further recommendations to follow This patient has been seen by myself and Dr. Renteria and this note is written on his behalf - Attending Attestation Dr. Renteria <Stacey Brothers - Last Filed: 10/07/18 18:26> (1) Elevated LFTs Status: Acute Code(s): R94.5 - Abnormal results of liver function studies - Plan Patient was seen and examined, agree with above note, continue monitoring liver function test <Golden Renteria - Last Filed: 10/07/18 19:18>
[2018-10-07] MEDS ORDERED: Insulin Detemir Inj 1,000 UNIT/10 ML Vial SQ SCH (21:00)
[2018-10-08] MEDS: Morphine Inj 4 MG/ML Vial IV.PUSH PRN ×3 (03:39→21:23)
[2018-10-08] MEDS: Insulin NovoLOG Aspart Correctional Sugar Inj SQ SCH ×4 (08:44→21:21)
[2018-10-08] MEDS: Senna/Docusate Sodium 8.6/50 MG Tablet PO SCH ×2 (08:47→21:22)
[2018-10-08] MEDS: Docusate Sodium 100 MG Capsule PO SCH ×2 (08:47→21:18)
[2018-10-08] MEDS: Multivitamin/Minerals Therapeutic Tablet PO SCH (08:47)
[2018-10-08] MEDS: Sertraline 50 MG Tablet PO SCH (08:48)
[2018-10-08] MEDS: Ranolazine 500 MG 12HR ER Tablet PO SCH ×2 (08:48→21:23)
[2018-10-08] MEDS: Pantoprazole Inj 40 MG Vial IV.PUSH SCH (08:49)
[2018-10-08] MEDS: Sodium Chloride 0.9% 2 ML Flush BID IV.FLUSH SCH ×2 (08:50→21:22)
[2018-10-08] MEDS: Polyethylene Glycol 3350 17 GM Packet PO SCH (08:50)
[2018-10-08] MEDS: Mupirocin 2% Nasal Oint Topical Syringe EACH NARE SCH ×2 (08:50→21:17)
--- NOTE | 2018-10-08 09:22 | P.PNONC ---
Subjective Interval history: Afebrile Patient asking questions about how long she will need to take the Arixtra Family bedside asking when she will be able to go home Complains of pain at sternotomy site Objective Vital Signs/Intake & Output: Vital Signs 10/07/18 10:00 10/07/18 11:00 10/07/18 12:00 Temperature 98.2 F Pulse Rate 78 75 75 Respiratory Rate 20 Blood Pressure 94/64 L Pulse Oximetry 96 10/07/18 13:00 10/07/18 14:00 10/07/18 15:00 Temperature 98.3 F Pulse Rate 80 78 74 Respiratory Rate 20 Blood Pressure 91/59 L Pulse Oximetry 97 10/07/18 16:00 10/07/18 17:00 10/07/18 18:00 Temperature Pulse Rate 78 70 77 Respiratory Rate Blood Pressure Pulse Oximetry 10/07/18 19:00 10/07/18 20:00 10/07/18 21:00 Temperature 98.2 F Pulse Rate 87 80 81 Respiratory Rate 18 Blood Pressure 120/68 Pulse Oximetry 97 97 10/07/18 22:00 10/07/18 23:00 10/08/18 00:00 Temperature 98.2 F Pulse Rate 85 84 81 Respiratory Rate 18 Blood Pressure 114/78 Pulse Oximetry 99 10/08/18 01:00 10/08/18 02:00 10/08/18 03:00 Temperature 97.8 F Pulse Rate 76 77 79 Respiratory Rate 16 Blood Pressure 109/68 Pulse Oximetry 99 10/08/18 04:00 10/08/18 05:00 10/08/18 06:00 Temperature Pulse Rate 72 74 72 Respiratory Rate Blood Pressure Pulse Oximetry 10/08/18 07:00 10/08/18 08:00 Temperature 98.7 F Pulse Rate 72 Respiratory Rate 16 Blood Pressure 110/71 Pulse Oximetry 95 92 L Intake & Output 10/07/18 10/08/18 10/08/18 18:59 06:59 18:59 Intake Total 1500 / 1500 480 / 480 Output Total 1200 / 1200 600 / 600 Balance 300 / 300 -120 / -120 Weight 182 lb 15.739 oz Intake: Oral 1500 / 1500 480 / 480 Output: Urine 1200 / 1200 600 / 600 Other: Date of Last Bowel Movement 10/07/18 # Bowel Movements 1 Result Diagrams: 10/08/18 11:30 10/08/18 11:30 Laboratory Results: Laboratory Results - last 24 hr 10/07/18 10/07/18 10/07/18 10:51 16:34 20:49 POC Glucose 221 H 115 H 258 H 10/08/18 07:33 POC Glucose 176 H Culture Results: Microbiology 10/01/18 11:39 Aerobic Blood Culture - Final Blood - Peripheral No growth in 5 days Anaerobic Blood Culture - Final No growth in 5 days 10/01/18 11:11 Aerobic Blood Culture - Final Blood - Peripheral No growth in 5 days Anaerobic Blood Culture - Final No growth in 5 days Medications: Active Medications Generic Name Dose Route Start Last Admin Trade Name Freq PRN Reason Stop Dose Admin Al Hydroxide/Mg Hydroxide 30 ml 10/02/18 09:00 10/08/18 08:50 Milk Of [place] Liq PO 30 ml DAILY GOLDY Administration Albuterol 1 ampul 09/29/18 13:35 10/03/18 23:27 Duoneb Neb (Prn) NEB 1 ampul Q2HR NEB PRN Administration WHEEZING Amiodarone HCl 200 mg 09/29/18 21:00 10/02/18 20:05 Cordarone PO 200 mg Q12HR GOLDY Administration Aspirin 81 mg 09/30/18 09:00 10/08/18 08:48 Aspirin Chew PO 81 mg DAILY GOLDY Administration Atorvastatin Calcium 20 mg 09/25/18 21:00 10/02/18 20:05 Lipitor PO 20 mg HS GOLDY Administration Calcium Carbonate 500 mg 10/07/18 21:00 10/08/18 08:48 Tums Chew PO 500 mg BID GOLDY Administration Clopidogrel Bisulfate 75 mg 09/30/18 09:00 10/08/18 08:47 Plavix PO 75 mg DAILY GOLDY Administration Docusate Sodium 100 mg 10/02/18 21:00 10/08/18 08:47 Colace PO 100 mg BID GOLDY Administration Fondaparinux 7.5 mg 10/05/18 17:00 10/07/18 16:31 Arixtra Inj SQ 7.5 mg Q24H GOLDY Administration Furosemide 40 mg 10/07/18 14:15 10/08/18 08:49 Lasix Inj IV.PUSH 40 mg DAILY GOLDY Administration Insulin Aspart 0 unit 10/03/18 12:00 10/08/18 08:44 Novolog Insulin Correctional Sugar Inj SQ 9 unit ACHS GOLDY Administration Protocol Insulin Detemir 10 unit 10/07/18 21:00 10/07/18 20:46 Levemir Inj SQ Not Given HS GOLDY Isosorbide Mononitrate 30 mg 09/24/18 09:00 09/30/18 12:01 Imdur PO Not Given DAILY GOLDY Morphine Sulfate 2 mg 10/03/18 11:56 10/08/18 03:39 Morphine Inj IV.PUSH 2 mg Q4H PRN Administration Acute Pain 1-10 Multivitamins/Minerals 1 tab 10/02/18 09:00 10/08/18 08:47 Theragran-M PO 1 tab DAILY GOLDY Administration Mupirocin 1 applicatio 10/02/18 21:00 10/08/18 08:50 Bactroban 2% Nasal Oint EACH NARE Not Given BID GOLDY Pantoprazole Sodium 40 mg 09/30/18 11:00 10/08/18 08:49 Protonix Inj IV.PUSH 40 mg DAILY GOLDY Administration Polyethylene Glycol 17 gm 10/03/18 09:00 10/08/18 08:50 Miralax PO 17 gm DAILY GOLDY Administration Potassium Chloride 20 meq 10/07/18 14:15 10/08/18 08:46 Klor-Con 10 PO 20 meq DAILY GOLDY Administration Ranolazine 500 mg 09/24/18 09:00 10/08/18 08:48 Ranexa PO 500 mg Q12H GOLDY Administration Senna/Docusate Sodium 1 tab 09/24/18 09:00 10/08/18 08:47 Jacqui-Colace PO 1 tab BID GOLDY Administration Sennosides 8.6 mg 10/02/18 21:00 10/07/18 23:01 Senokot PO Not Given HS GOLDY Sertraline HCl 50 mg 09/24/18 09:00 10/08/18 08:48 Zoloft PO 50 mg DAILY GOLDY Administration Sodium Chloride 2 ml 09/24/18 09:00 10/08/18 08:50 Ns Flush IV.FLUSH 2 ml BID GOLDY Administration Temazepam 7.5 mg 09/24/18 21:00 10/07/18 21:20 Restoril PO 7.5 mg HS GOLDY Administration Throat Lozenges 2 spray 10/04/18 17:48 10/04/18 21:15 Chloraseptic [place] OROPHARYNG 2 spray Q2H PRN Administration SORE THROAT Objective Remarks: GENERAL: Chronically ill-appearing female patient in no acute distress. SKIN: Warm, diaphoretic. Sternotomy site open to air. It is well approximated HEAD: Normocephalic. EYES: No scleral icterus. No injection or drainage. NECK: Supple, trachea midline. Rt central line. CARDIOVASCULAR: Distant heart sounds. RESPIRATORY: Anterior breath sounds clear, equal bilaterally. GASTROINTESTINAL: Abdomen large, soft, non-tender, nondistended. EXTREMITIES: No cyanosis, or edema. JUANCHO hose to bilateral lower extremities MUSCULOSKELETAL: Adequate muscle tone. NEUROLOGICAL: No obvious focal deficit. Awake, alert. Assessment/Plan - Plan Ms. Lira is a 58 year-old female patient who underwent urgent off-pump coronary artery bypass grafting x4 on 09/29/2018. The patient suffered occlusions of the graft within hours of undergoing surgery and she underwent left heart catheterization which revealed significant thrombus formation within the saphenous venous graft to the first and second obtuse marginals, additional thrombus had developed along the left anterior descending artery. The arterial thrombosis within the graft occurred while the patient was on antiplatelet agents. Hematology was consulted to rule out prothrombotic condition. Pro thrombotic workup indicated findings consistent with heparin-induced thrombocytopenia. Interestingly her initial heparin/platelet factor 4 antibody was negative, the YARITZA was positive. She was also found to have an initial positive for circulating lupus anticoagulant, confirmatory test will be due in 10-12 weeks. Recommendations: 1. Hyper acute CABG graft thrombosis: Found to be positive for heparin-induced thrombocytopenia which likely explains the patient's underlying prothrombotic state. Patient continues on Arixtra at 7.5 mg subcu daily. 2. She is also on aspirin and Plavix per cardiovascular team 3. Discussed with patient that she will need to tell her healthcare team that she is allergic to heparin in the future. This will be added to her allergies. 4. Anticipate transitioning to oral anticoagulation soon. - Attending Statement The exam, history, and the medical decision-making described in the above note were completed with the assistance of the mid-level provider. I reviewed and agree with the findings presented. I attest that I had a [id number] encounter with the patient on the same day, and personally performed and documented my assessment and findings in the medical record. 58 yoF with thrombosis after CAGB. YARITZA positive. On arixtra. Platelet count uptrending.
--- NOTE | 2018-10-08 10:58 | P.PNCV ---
- Note CVT: Post Op Day #: 8 Subjective/Hospital Course: sts data discussed with pt RISK SCORES About the STS Risk Calculator Procedure: CAB Only Risk of Mortality: 0.745% Morbidity or Mortality: 8.994% Long Length of Stay: 3.108% Short Length of Stay: 56.144% Permanent Stroke: 0.567% Prolonged Ventilation: 6.252% DSW Infection: 0.387% Renal Failure: 1.922% Reoperation: 3.349% 58-year-old female with a significant history of coronary artery disease the presented to the ED for evaluation of chest pain. Patient has had chest pain for about a week. Per patient is progressively getting worse. She denies any urinary or bowel movement issues. She states that the pain gets worse with stress and movement. She took 4 nitro with minimal improvement of the symptoms which was what prompted her evaluation. Patient was admitted recently in July for evaluation of similar. She had another heart cath that showed . Significant multivessel disease, although overall small vessels. She did not had stenting at that time and they thought that she could have increase of her medications and may be this will help with her symptoms but she continues to have symptoms. PMH: CAD/ [place]/ Stents/ HTN, HLP, DM insulin dependent EF 58% 09/26 pt on heparin gtt, 3 mcq of NTG will resume imdur and dc NTG, pt pain free eval PRU in am for timing of surgery off Brilinta since Thursday 09/27 off NTG gtt / on imdur/ heparin gtt, painfree PRU>250 stable for surgery on 09/28 doing well, no chest pain during the night on heparin gtt stable for surgery in am 09/29 SURGICAL PROCEDURE 1. Urgent Off-pump Coronary Artery Bypass Grafting x 4 with Left Internal Mammary Artery (RAMEY) to Left Anterior Descending (LAD), reverse saphenous vein graft to obtuse Marginal1 and sequentially to the Obtuse Marginal 2 branches of the left Circumflex artery, reverse saphenous vein graft to the posterior Descending branch of the right Coronary artery 2. Left leg Endoscopic Vein [place] 3. Intraoperative Vein Mapping. 09/30 Clinically and hemodynamic is stable Events noted with hyper acute thrombosis of all the grafts. PCI to the circumflex distribution Greatly appreciate Dr. Melissa and Dr. Enriquez's assistance in her care Wean to extubate today Presently on aspirin Plavix and heparin drip. Will defer to Dr. Melissa regarding long-term antiplatelet therapy Greatly appreciate Dr. Curry's input regarding further workup of her thrombotic state 10/01 Doing well this morning Awake alert oriented and responds appropriately verbal commands Weaning ventilator with plans to extubate today Hemodynamically stable Maintain chest tubes to drainage for now 10/02 Remains weak Not taking deep breaths or coughing Needs PT OT and incentive spirometry Likely DC chest tubes in a.m. once she has gotten out of bed 10/03 minimal drainage in chest tube will dc today / heparin off to remove chest tubes, then resume weak, sleepy , will dc narcotics for now elevated LFT tylenol , amiodarone and statin held ammonia level 53 yesterday on partial NRB, needs aggressive pulm toileting OOB with assistance/ PT 10/04 remains on partial NRB mask diuresis increased PLT 83, continue ASA, plavix and heparin gtt for now with recent acute graft closure await final decision regarding NOAC on pt / was on Brilinta before surgery 10/05 up in chair, now on nasal cannula PLT improving 120 awake input from cardiology and Heme/ concerning oral anticoagulation/ continue PT/OT eval for transfer from CVICU in am 10/06 HIT + , off all heparin products / on arixtra ASA, plavix on 2 liter nasal cannula/ CXR noted dose with additional lasix this am for Hida scan today will transfer out of CVICU today 10/07 recheck LFT in am Heme / to eval for transitioning arixtra to coumadin / once LFT recovered remains off amiodarone / statin BP and heart rhythm stable continue PT/OT/ on room air daily diuresis 10/08/18 Improving, c/o incisional pain Objective: Vital Signs - 24 hr 10/07/18 11:00 10/07/18 12:00 10/07/18 13:00 Temperature 98.2 F Pulse Rate 75 75 80 Respiratory Rate 20 Blood Pressure 94/64 L Pulse Oximetry 96 10/07/18 14:00 10/07/18 15:00 10/07/18 16:00 Temperature 98.3 F Pulse Rate 78 74 78 Respiratory Rate 20 Blood Pressure 91/59 L Pulse Oximetry 97 10/07/18 17:00 10/07/18 18:00 10/07/18 19:00 Temperature 98.2 F Pulse Rate 70 77 87 Respiratory Rate 18 Blood Pressure 120/68 Pulse Oximetry 97 10/07/18 20:00 10/07/18 21:00 10/07/18 22:00 Temperature Pulse Rate 80 81 85 Respiratory Rate Blood Pressure Pulse Oximetry 97 10/07/18 23:00 10/08/18 00:00 10/08/18 01:00 Temperature 98.2 F Pulse Rate 84 81 76 Respiratory Rate 18 Blood Pressure 114/78 Pulse Oximetry 99 10/08/18 02:00 10/08/18 03:00 10/08/18 04:00 Temperature 97.8 F Pulse Rate 77 79 72 Respiratory Rate 16 Blood Pressure 109/68 Pulse Oximetry 99 10/08/18 05:00 10/08/18 06:00 10/08/18 07:00 Temperature 98.7 F Pulse Rate 74 72 76 Respiratory Rate 16 Blood Pressure 110/71 Pulse Oximetry 95 10/08/18 08:00 Temperature Pulse Rate Respiratory Rate Blood Pressure Pulse Oximetry 92 L Labs: Laboratory Results - last 12 hr 10/08/18 07:33 POC Glucose 176 H Result Diagrams: 10/07/18 04:07 10/07/18 04:07 Imaging: Lower Extremity Ultrasound 09/24/18 00:00 CONCLUSION: Nonvisualization of the greater saphenous vein and portions of the lower legs bilaterally. Venous Doppler Study 09/24/18 00:00 CONCLUSION: Negative study. No venous thrombosis of either lower extremity. Carotid Doppler Study 09/28/18 10:09 CONCLUSION: 1. Right Internal Carotid Artery: No significant stenosis or atherosclerotic plaque is visualized. 2. Left Internal Carotid Artery: No significant stenosis or atherosclerotic plaque is visualized. Liver Ultrasound 10/01/18 00:00 CONCLUSION: 1. Mild hepatomegaly and steatosis suspected. 2. Gallbladder wall thickening with pericholecystic fluid. In the appropriate clinical setting acalculous cholecystitis may have this appearance. Abdomen/Bladder Ultrasound 10/02/18 00:00 CONCLUSION: 1. Increased echogenicity of the kidneys characteristic of medical renal disease. No hydronephrosis. No perinephric fluid. Barba catheter in bladder, decompressed. Bile Acid Absorption NM 10/06/18 00:00 CONCLUSION: 1. Borderline abnormal gallbladder ejection fraction. No evidence of acute cholecystitis. 2. Otherwise within normal limits. Chest X-Ray 10/06/18 06:00 CONCLUSION: 1. Rotated examination with increased opacity in the left lung which may be artifactual. 2. Mild cardiomegaly and apparent left effusion. Cardiovascular: RRR Pulmonary: few crackles bilat GI/: NABS Incision: dry and intact - Plan (1) S/P coronary artery bypass graft x 4 Plan: off statin, amiodarone 2/2 elevated LFT OOB to chair on room air / diuresis daily / remains on ASA, Plavix , (2) Renal insufficiency Plan: indices improving (3) CAD (coronary artery disease), [place] coronary artery Plan: ASA, Heparin gtt (4) Diabetes mellitus Plan: diabetic diet insulin sliding scale HGB A1C 8.6 (5) Subsequent non-ST elevation (NSTEMI) myocardial infarction Plan: Left heart catheterization, coronary angiogram, bypass angiogram, complex case, moderate sedation at 128 minutes, [place] drug-eluting stent x2 (proximal 2 x 12, mid 2 x 30) to first obtuse marginal, balloon angioplasty of the second obtuse marginal, [place] drug-eluting stent (2 x 30) to mid left circumflex, aspiration thrombectomy of LAD. (6) Unstable angina Plan: pain free at this time (7) Elevated LFTs Plan: tylenol dc amiodarone dc statin dc f/u levels improving GI following US calculus cholecystitis / Hida scan unremarkable (8) Heparin induced thrombocytopenia (HIT) Plan: off all heparin products on arixtra / heme to decide when to transition to coumadin Diurese Anticoagulation per hematology Encourage ambulation, up to chair
--- NOTE | 2018-10-08 11:02 | P.PNGI ---
Subjective Interval history: Patient sitting up in bed Reports intermittent coughing Denies nausea or any vomiting Physical Exam Vital signs: Vital Signs 10/07/18 11:00 10/07/18 12:00 10/07/18 13:00 Temperature 98.2 F Pulse Rate 75 75 80 Respiratory Rate 20 Blood Pressure 94/64 L Pulse Oximetry 96 10/07/18 14:00 10/07/18 15:00 10/07/18 16:00 Temperature 98.3 F Pulse Rate 78 74 78 Respiratory Rate 20 Blood Pressure 91/59 L Pulse Oximetry 97 10/07/18 17:00 10/07/18 18:00 10/07/18 19:00 Temperature 98.2 F Pulse Rate 70 77 87 Respiratory Rate 18 Blood Pressure 120/68 Pulse Oximetry 97 10/07/18 20:00 10/07/18 21:00 10/07/18 22:00 Temperature Pulse Rate 80 81 85 Respiratory Rate Blood Pressure Pulse Oximetry 97 10/07/18 23:00 10/08/18 00:00 10/08/18 01:00 Temperature 98.2 F Pulse Rate 84 81 76 Respiratory Rate 18 Blood Pressure 114/78 Pulse Oximetry 99 10/08/18 02:00 10/08/18 03:00 10/08/18 04:00 Temperature 97.8 F Pulse Rate 77 79 72 Respiratory Rate 16 Blood Pressure 109/68 Pulse Oximetry 99 10/08/18 05:00 10/08/18 06:00 10/08/18 07:00 Temperature 98.7 F Pulse Rate 74 72 76 Respiratory Rate 16 Blood Pressure 110/71 Pulse Oximetry 95 10/08/18 08:00 Temperature Pulse Rate Respiratory Rate Blood Pressure Pulse Oximetry 92 L Intake & Output 10/07/18 10/08/18 10/08/18 18:59 06:59 18:59 Intake Total 1500 / 1500 480 / 480 Output Total 1200 / 1200 600 / 600 Balance 300 / 300 -120 / -120 Weight 83 kg Intake: Oral 1500 / 1500 480 / 480 Output: Urine 1200 / 1200 600 / 600 Other: Date of Last Bowel Movement 10/07/18 # Bowel Movements 1 - Constitutional no acute distress - Routine HEENT Exam Head: Present: normocephalic - Routine Respiratory Exam Present: CTA bilaterally. Absent: accessory muscle use - Routine Cardiovascular Exam Present: RRR - Routine Abdominal Exam Present: soft, normoactive bowel sounds. Absent: distended, guarding, firm - Routine Skin Exam Present: dry, warm - Routine Neurological Exam Present: alert, oriented X3 - Routine Psychiatric Exam Present: normal affect, cooperative - Urinary Catheter Management Indwelling Temp Sensing Catheter Cath placed during this visit: yes, but has since been removed by the nurse Reason for continuing: Decision to DC catheter Insertion date: 09/29/18 Insertion time: 08:30 Removal date: 10/06/18 Removal time: 14:00 Results - Labs CBC & Chem 7: 10/08/18 11:30 10/08/18 11:30 Laboratory Results - last 24 hr 10/07/18 10/07/18 10/07/18 10:51 16:34 20:49 POC Glucose 221 H 115 H 258 H 10/08/18 07:33 POC Glucose 176 H - Procedures None Assessment and Plan (1) Elevated LFTs Status: Acute Code(s): R94.5 - Abnormal results of liver function studies - Plan 10/07/2018 Elevated liver enzymes Patient awake and alert sitting up in chair at bedside. Denies any nausea or vomiting Hemoglobin 9.6 hematocrit 28.4 platelet count 197 10/06/2018 AST 218 ALT 520 alk phos 383 all trending down-likely related to medications/shock liver as patient is post CABG 10/08/2018 Elevated liver enzymes Patient awake and alert sitting up in bed. Denies any nausea vomiting or this time. No new labs this a.m. Plan -Cardiac diet as tolerated -Continue to monitor liver function -Liver workup -Ferritin level -Liver ultrasound to check biliary ducts -Supportive care -Further recommendations to follow This patient has been seen by myself and Dr. Wilson and this note is written on his behalf - Attending Attestation Steve Abrams
[2018-10-08 12:22] LABS: Hematocrit 31.7 % (35.0-46.0); Hemoglobin 10.6 gm/dL (11.6-15.3); Mean Corpuscular HGB Conc 33.4 % (32.0-36.0); Mean Corpuscular Hemoglobin 29.5 pg (27.0-34.0); Mean Corpuscular Volume 88.4 fL (80.0-100.0); Mean Platelet Volume 8.1 fL (7.0-11.0); Platelet Count 268 th/mm3 (150-450); Red Blood Count 3.59 mil/mm3 (4.00-5.30); Red Cell Distribution Width 15.4 % (11.6-17.2); White Blood Count 7.8 th/mm3 (4.0-11.0)
[2018-10-08 12:37] LABS: INR 1.4 Ratio; Prothrombin Time 13.8 sec (9.8-11.6)
[2018-10-08 13:21] LABS: Alanine Aminotransferase 247 U/L (10-53); Albumin 2.6 g/dL (3.4-5.0); Alkaline Phosphatase 339 U/L (45-117); Anion Gap 10 meq/L (5-15); Aspartate Aminotransferase 54 U/L (15-37); Blood Urea Nitrogen 11 mg/dL (7-18); Calcium 7.7 mg/dL (8.5-10.1); Carbon Dioxide 25.5 meq/L (21.0-32.0); Chloride 101 meq/L (98-107); Glomerular Filtration Rate 66 mL/min (>89); Glucose,Random 248 mg/dL (74-106); Potassium 4.3 meq/L (3.5-5.1); Sodium 136 meq/L (136-145); Total Protein 6.5 g/dL (6.4-8.2)
[2018-10-08 15:51] LABS: % Iron Saturation 12.4 % (20-50); Ferritin 168 ng/mL (8-252); Iron 31 mcg/dL (50-170); Total Iron Binding Capacity 251 mcg/dL (250-450)
[2018-10-08] MEDS: FONDAPARINUX 7.5 MG/0.6 ML SQ SCH (17:21)
[2018-10-08] MEDS: Insulin Glargine Inj 1,000 UNITS/10 ML Vial SQ SCH (21:20)
[2018-10-09] MEDS: Morphine Inj 4 MG/ML Vial IV.PUSH PRN ×2 (00:12→21:11)
[2018-10-09 04:23] LABS: INR 1.3 Ratio; Prothrombin Time 13.3 sec (9.8-11.6)
--- NOTE | 2018-10-09 07:36 | US ---
EXAM DATE: 10/09/2018 7:27 AM EST AGE/SEX: 58 years / Female INDICATIONS: RUQ pain. CLINICAL DATA: This is the patient's initial encounter. Patient reports that signs and symptoms have been present for 1 day and indicates a pain score of 4/10. MEDICAL/SURGICAL HISTORY: Chronic renal insufficiency. Myocardial infarction. CAD. MDRO. Diabe manasa. CABG. COMPARISON: [facility] [place], US KIDNEY/RENAL/BLADDER, 10/02/2018. [facility] [place], US ABDOMEN LIVER, 10/01/2018. . MEASUREMENTS: Liver:__ 18.3 cm. Common Bile Duct:__ 7mm. Right Kidney:__ 9.9 x 5.1 x 5.4 cm. FINDINGS: Liver: Normal echotexture without focal lesion or ductal dilation. Portal Vein: Hepatopedal flow seen in portal vein. Common Duct: No intraluminal mass or stone visualized. The common bile duct appears mildly prominent measuring 7 mm. Gallbladder: Demonstrates no wall thickening or pericholecystic fluid. No stones visualized. Pancreas: Not well visualized. Right Kidney: The right kidney is normal in morphology and echogenicity. No evidence of concerning m ass or hydronephrosis. No evidence of stones. There is a small amount of fluid identified within Lucio son's pouch. Other: None. CONCLUSION: 1. The common bile duct appears mildly prominent at 7 mm. The pancreas is not visualized secondary t o bandages overlying the patient's abdomen. There is a trace amount of free fluid identified within M orison's pouch. No definite etiology seen for the patient's pain. Consider further evaluation with co ntrast-enhanced CT given the presence of the free fluid. Electronically signed by: Lis Espinoza MD 10/09/2018 7:34 AM EST
[2018-10-09] MEDS: Pantoprazole Inj 40 MG Vial IV.PUSH SCH (09:26)
[2018-10-09] MEDS: Insulin NovoLOG Aspart Correctional Sugar Inj SQ SCH ×4 (09:26→21:09)
[2018-10-09] MEDS: Senna/Docusate Sodium 8.6/50 MG Tablet PO SCH ×2 (09:27→21:06)
[2018-10-09] MEDS: Multivitamin/Minerals Therapeutic Tablet PO SCH (09:27)
[2018-10-09] MEDS: Ranolazine 500 MG 12HR ER Tablet PO SCH ×2 (09:27→21:06)
[2018-10-09] MEDS: Docusate Sodium 100 MG Capsule PO SCH ×2 (09:27→21:09)
[2018-10-09] MEDS: Sertraline 50 MG Tablet PO SCH (09:27)
[2018-10-09] MEDS: Polyethylene Glycol 3350 17 GM Packet PO SCH (09:28)
[2018-10-09] MEDS: Mupirocin 2% Nasal Oint Topical Syringe EACH NARE SCH ×2 (09:28→21:09)
[2018-10-09] MEDS: Sodium Chloride 0.9% 2 ML Flush BID IV.FLUSH SCH ×2 (09:28→21:07)
--- NOTE | 2018-10-09 11:56 | P.PNCV ---
- Note CVT: Post Op Day #: 10 Subjective/Hospital Course: sts data discussed with pt RISK SCORES About the STS Risk Calculator Procedure: CAB Only Risk of Mortality: 0.745% Morbidity or Mortality: 8.994% Long Length of Stay: 3.108% Short Length of Stay: 56.144% Permanent Stroke: 0.567% Prolonged Ventilation: 6.252% DSW Infection: 0.387% Renal Failure: 1.922% Reoperation: 3.349% 58-year-old female with a significant history of coronary artery disease the presented to the ED for evaluation of chest pain. Patient has had chest pain for about a week. Per patient is progressively getting worse. She denies any urinary or bowel movement issues. She states that the pain gets worse with stress and movement. She took 4 nitro with minimal improvement of the symptoms which was what prompted her evaluation. Patient was admitted recently in July for evaluation of similar. She had another heart cath that showed . Significant multivessel disease, although overall small vessels. She did not had stenting at that time and they thought that she could have increase of her medications and may be this will help with her symptoms but she continues to have symptoms. PMH: CAD/ [place]/ Stents/ HTN, HLP, DM insulin dependent EF 58% 09/26 pt on heparin gtt, 3 mcq of NTG will resume imdur and dc NTG, pt pain free eval PRU in am for timing of surgery off Brilinta since Thursday 09/27 off NTG gtt / on imdur/ heparin gtt, painfree PRU>250 stable for surgery on 09/28 doing well, no chest pain during the night on heparin gtt stable for surgery in am 09/29 SURGICAL PROCEDURE 1. Urgent Off-pump Coronary Artery Bypass Grafting x 4 with Left Internal Mammary Artery (RAMEY) to Left Anterior Descending (LAD), reverse saphenous vein graft to obtuse Marginal1 and sequentially to the Obtuse Marginal 2 branches of the left Circumflex artery, reverse saphenous vein graft to the posterior Descending branch of the right Coronary artery 2. Left leg Endoscopic Vein [place] 3. Intraoperative Vein Mapping. 09/30 Clinically and hemodynamic is stable Events noted with hyper acute thrombosis of all the grafts. PCI to the circumflex distribution Greatly appreciate Dr. Melissa and Dr. Enriquez's assistance in her care Wean to extubate today Presently on aspirin Plavix and heparin drip. Will defer to Dr. Melissa regarding long-term antiplatelet therapy Greatly appreciate Dr. Curry's input regarding further workup of her thrombotic state 10/01 Doing well this morning Awake alert oriented and responds appropriately verbal commands Weaning ventilator with plans to extubate today Hemodynamically stable Maintain chest tubes to drainage for now 10/02 Remains weak Not taking deep breaths or coughing Needs PT OT and incentive spirometry Likely DC chest tubes in a.m. once she has gotten out of bed 10/03 minimal drainage in chest tube will dc today / heparin off to remove chest tubes, then resume weak, sleepy , will dc narcotics for now elevated LFT tylenol , amiodarone and statin held ammonia level 53 yesterday on partial NRB, needs aggressive pulm toileting OOB with assistance/ PT 10/04 remains on partial NRB mask diuresis increased PLT 83, continue ASA, plavix and heparin gtt for now with recent acute graft closure await final decision regarding NOAC on pt / was on Brilinta before surgery 10/05 up in chair, now on nasal cannula PLT improving 120 awake input from cardiology and Heme/ concerning oral anticoagulation/ continue PT/OT eval for transfer from CVICU in am 10/06 HIT + , off all heparin products / on arixtra ASA, plavix on 2 liter nasal cannula/ CXR noted dose with additional lasix this am for Hida scan today will transfer out of CVICU today 10/07 recheck LFT in am Heme / to eval for transitioning arixtra to coumadin / once LFT recovered remains off amiodarone / statin BP and heart rhythm stable continue PT/OT/ on room air daily diuresis 10/08/18 Improving, c/o incisional pain 10/09/18 No complaints, resting now Objective: Vital Signs - 24 hr 10/08/18 12:00 10/08/18 13:00 10/08/18 14:00 Temperature Pulse Rate 75 80 78 Respiratory Rate Blood Pressure Pulse Oximetry 10/08/18 15:00 10/08/18 16:00 10/08/18 17:00 Temperature 98.4 F Pulse Rate 78 77 77 Respiratory Rate 16 Blood Pressure 106/66 Pulse Oximetry 97 10/08/18 18:00 10/08/18 19:00 10/08/18 20:00 Temperature 98.3 F Pulse Rate 76 75 85 Respiratory Rate 18 Blood Pressure 103/60 Pulse Oximetry 94 L 94 L 10/08/18 21:00 10/08/18 21:25 10/08/18 22:00 Temperature Pulse Rate 84 80 Respiratory Rate 16 Blood Pressure Pulse Oximetry 10/08/18 23:00 10/09/18 00:00 10/09/18 01:00 Temperature 97.5 F L Pulse Rate 80 80 79 Respiratory Rate 18 Blood Pressure 103/64 Pulse Oximetry 94 L 10/09/18 01:09 10/09/18 02:00 10/09/18 03:00 Temperature 97.5 F L Pulse Rate 79 77 Respiratory Rate 16 18 Blood Pressure 108/58 L Pulse Oximetry 95 10/09/18 04:00 10/09/18 05:00 10/09/18 06:00 Temperature Pulse Rate 72 79 77 Respiratory Rate Blood Pressure Pulse Oximetry 10/09/18 07:00 10/09/18 08:17 Temperature 97.8 F Pulse Rate 76 Respiratory Rate 16 Blood Pressure 99/63 L Pulse Oximetry 96 98 Labs: Laboratory Results - last 12 hr 10/09/18 10/09/18 10/09/18 03:40 08:15 11:14 PT 13.3 H INR 1.3 POC Glucose 294 H 362 H Result Diagrams: 10/08/18 11:30 10/08/18 11:30 Imaging: Lower Extremity Ultrasound 09/24/18 00:00 CONCLUSION: Nonvisualization of the greater saphenous vein and portions of the lower legs bilaterally. Venous Doppler Study 09/24/18 00:00 CONCLUSION: Negative study. No venous thrombosis of either lower extremity. Carotid Doppler Study 09/28/18 10:09 CONCLUSION: 1. Right Internal Carotid Artery: No significant stenosis or atherosclerotic plaque is visualized. 2. Left Internal Carotid Artery: No significant stenosis or atherosclerotic plaque is visualized. Abdomen/Bladder Ultrasound 10/02/18 00:00 CONCLUSION: 1. Increased echogenicity of the kidneys characteristic of medical renal disease. No hydronephrosis. No perinephric fluid. Barba catheter in bladder, decompressed. Bile Acid Absorption NM 10/06/18 00:00 CONCLUSION: 1. Borderline abnormal gallbladder ejection fraction. No evidence of acute cholecystitis. 2. Otherwise within normal limits. Chest X-Ray 10/06/18 06:00 CONCLUSION: 1. Rotated examination with increased opacity in the left lung which may be artifactual. 2. Mild cardiomegaly and apparent left effusion. Liver Ultrasound 10/09/18 14:38 CONCLUSION: 1. The common bile duct appears mildly prominent at 7 mm. The pancreas is not visualized secondary to bandages overlying the patient's abdomen. There is a trace amount of free fluid identified within Morison's pouch. No definite etiology seen for the patient's pain. Consider further evaluation with contrast- enhanced CT given the presence of the free fluid. Cardiovascular: RRR Pulmonary: CTA GI/: NABS, NT Incision: dry and intact - Plan (1) S/P coronary artery bypass graft x 4 Plan: off statin, amiodarone 2/2 elevated LFT OOB to chair on room air / diuresis daily / remains on ASA, Plavix , (2) Renal insufficiency Plan: indices improving (3) CAD (coronary artery disease), [place] coronary artery Plan: ASA, Heparin gtt (4) Diabetes mellitus Plan: diabetic diet insulin sliding scale HGB A1C 8.6 (5) Subsequent non-ST elevation (NSTEMI) myocardial infarction Plan: Left heart catheterization, coronary angiogram, bypass angiogram, complex case, moderate sedation at 128 minutes, [place] drug-eluting stent x2 (proximal 2 x 12, mid 2 x 30) to first obtuse marginal, balloon angioplasty of the second obtuse marginal, [place] drug-eluting stent (2 x 30) to mid left circumflex, aspiration thrombectomy of LAD. (6) Unstable angina Plan: pain free at this time (7) Elevated LFTs Plan: tylenol dc amiodarone dc statin dc f/u levels improving GI following US calculus cholecystitis / Hida scan unremarkable (8) Heparin induced thrombocytopenia (HIT) Plan: off all heparin products on arixtra / heme to decide when to transition to coumadin Diuresing well GI and hematology following Anticoagulation per hematology D/C planning
--- NOTE | 2018-10-09 16:30 | P.DIET ---
Nutritional Evaluation Type of nutrition evaluation: follow-up Nutrition consult regarding: Diet Evaluation Nutrition screening: Poor PO Intake Screening comments: 10/02 MDC for poor PO intake Objective - Diagnosis Unstable Angina - Objective % IBW: 164 (IBW = 110lb) Body Weight Used for Calculations: IBW Energy Needs - Lower Range (kCal/kg): 25 Energy Needs - Upper Range (kCal/kg): 30 Lower Limit kCal/kg (kCals): 1,250 Upper Limit kCal/kg (kCals): 1,500 Lower Limit Protein Factor (Grams per Kg): 1.1 Upper Limit Protein Factor (Grams per Kg): 1.3 Lower Protein Needs (Protein): 55 Upper Protein Needs (Protein): 65 Dietitian Reviewed in Medical Record: Current diet, Curent medications, Intake & Output, Labs, Medical history Diet Order: Cardiac diet Oral Diet Intake Amount: Good 75-90% Objective Comments: PMH: CKD, CAD, DM, SD Labs: POC glucose 267 176 362 Assessment Assessment: Pt on cardiac diet now and has a good appetite, consuming around 75-100% of most meals. Pt has good UOP and +LBM 10/09. Continue to monitor PO and supplement intake. Wts noted, CBW = 82.5kg. Labs reviewed, dietitian following. Recommendations: 1. Continue cardiac diet w/ Glucerna BID 2. Continue to monitor PO and supplement intake 3. Dietitian following Dietitian to Monitor: Lab values, Supplement acceptance, Intake & Output, Diet tolerance, Weight change, PO Intake, Diet advancement, Medical course
[2018-10-09] MEDS: FONDAPARINUX 7.5 MG/0.6 ML SQ SCH (17:49)
--- NOTE | 2018-10-09 18:31 | P.PNGI ---
Subjective Interval history: Patient resting quietly in bed eating a meal Denies abdominal pain nausea or vomiting Physical Exam Vital signs: Vital Signs 10/08/18 19:00 10/08/18 20:00 10/08/18 21:00 Temperature 98.3 F Pulse Rate 75 85 84 Respiratory Rate 18 Blood Pressure 103/60 Pulse Oximetry 94 L 94 L 10/08/18 21:25 10/08/18 22:00 10/08/18 23:00 Temperature 97.5 F L Pulse Rate 80 80 Respiratory Rate 16 18 Blood Pressure 103/64 Pulse Oximetry 94 L 10/09/18 00:00 10/09/18 01:00 10/09/18 01:09 Temperature Pulse Rate 80 79 Respiratory Rate 16 Blood Pressure Pulse Oximetry 10/09/18 02:00 10/09/18 03:00 10/09/18 04:00 Temperature 97.5 F L Pulse Rate 79 77 72 Respiratory Rate 18 Blood Pressure 108/58 L Pulse Oximetry 95 10/09/18 05:00 10/09/18 06:00 10/09/18 07:00 Temperature 97.8 F Pulse Rate 79 77 76 Respiratory Rate 16 Blood Pressure 99/63 L Pulse Oximetry 96 10/09/18 08:00 10/09/18 08:17 10/09/18 09:00 Temperature Pulse Rate 75 80 Respiratory Rate Blood Pressure Pulse Oximetry 98 10/09/18 10:00 10/09/18 11:00 10/09/18 12:00 Temperature 97.7 F Pulse Rate 75 75 79 Respiratory Rate 16 Blood Pressure 102/60 Pulse Oximetry 97 10/09/18 13:00 10/09/18 14:00 10/09/18 15:00 Temperature 98.0 F Pulse Rate 85 82 88 Respiratory Rate 16 Blood Pressure 124/75 Pulse Oximetry 95 10/09/18 16:00 10/09/18 17:00 10/09/18 18:00 Temperature Pulse Rate 80 83 96 H Respiratory Rate Blood Pressure Pulse Oximetry Intake & Output 10/08/18 10/09/18 10/09/18 18:59 06:59 18:59 Intake Total 720 / 720 480 / 480 720 / 720 Output Total 1400 / 1400 570 / 570 1900 / 1900 Balance -680 / -680 -90 / -90 -1180 / -1180 Weight 82.5 kg Intake: Oral 720 / 720 480 / 480 720 / 720 Output: Urine 1400 / 1400 570 / 570 1900 / 1900 Other: Date of Last Bowel Movement 10/08/18 10/08/18 10/09/18 # Bowel Movements 2 2 - Constitutional no acute distress - Routine HEENT Exam Head: Present: normocephalic - Routine Respiratory Exam Present: CTA bilaterally. Absent: accessory muscle use - Routine Cardiovascular Exam Present: S1, S2 Comments: Midsternal incision covered with dressing - Routine Abdominal Exam Present: soft, normoactive bowel sounds. Absent: tenderness, distended, guarding, firm - Routine Extremities Exam Comments: +1 bilateral pedal edema - Routine Skin Exam Present: dry, warm - Routine Neurological Exam Present: alert, oriented X3 - Routine Psychiatric Exam Present: normal affect, cooperative - Urinary Catheter Management Indwelling Temp Sensing Catheter Cath placed during this visit: yes, but has since been removed by the nurse Reason for continuing: Decision to DC catheter Insertion date: 09/29/18 Insertion time: 08:30 Removal date: 10/06/18 Removal time: 14:00 Results - Labs CBC & Chem 7: 10/08/18 11:30 10/08/18 11:30 Laboratory Results - last 24 hr 10/08/18 10/08/18 10/08/18 19:26 19:26 20:19 PT INR POC Glucose 176 H Ammonia 22 Tumor Marker AFP 1.4 10/09/18 10/09/18 10/09/18 03:40 08:15 11:14 PT 13.3 H INR 1.3 POC Glucose 294 H 362 H Ammonia Tumor Marker AFP 10/09/18 10/09/18 15:51 16:41 PT INR POC Glucose 79 104 Ammonia Tumor Marker AFP Microbiology 10/09/18 16:00 Stool Stool Occult Blood (NAVI) - Final Hemoccult negative - Imaging Impressions Liver Ultrasound 10/09/18 14:38 CONCLUSION: 1. The common bile duct appears mildly prominent at 7 mm. The pancreas is not visualized secondary to bandages overlying the patient's abdomen. There is a trace amount of free fluid identified within Morison's pouch. No definite etiology seen for the patient's pain. Consider further evaluation with contrast- enhanced CT given the presence of the free fluid. - Procedures None Assessment and Plan (1) Elevated LFTs Status: Acute Code(s): R94.5 - Abnormal results of liver function studies - Plan 10/07/2018 Elevated liver enzymes Patient awake and alert sitting up in chair at bedside. Denies any nausea or vomiting Hemoglobin 9.6 hematocrit 28.4 platelet count 197 10/06/2018 AST 218 ALT 520 alk phos 383 all trending down-likely related to medications/shock liver as patient is post CABG 10/08/2018 Elevated liver enzymes Patient awake and alert sitting up in bed. Denies any nausea vomiting or this time. No new labs this a.m. 10/09/2018 Labs immunology pending. INR 1.3 Patient denies abdominal pain nausea or vomiting. Ultrasound abdomen liver revealed the following findings The common bile duct appears mildly prominent at 7 mm. The pancreas is not visualized secondary to bandages overlying the patient's abdomen. There is a trace amount of free fluid identified within Morison's pouch. No definite etiology seen for the patient's pain. Consider further evaluation with contrast- enhanced CT given the presence of the free fluid. Plan -Cardiac diet as tolerated -Continue to monitor liver function -MRCP to rule out bile duct obstruction -Supportive care -Further recommendations to follow This patient has been seen by myself and Dr. Wilson and this note is written on his behalf - Attending Attestation Dr. Wilson
[2018-10-09] MEDS: Insulin Glargine Inj 1,000 UNITS/10 ML Vial SQ SCH (21:10)
[2018-10-10] MEDS: Morphine Inj 4 MG/ML Vial IV.PUSH PRN ×2 (02:28→08:03)
[2018-10-10 05:54] LABS: Baso % (Auto) 0.3 % (0.0-2.0); Eos # (Auto) 0.2 th/mm3 (0.0-0.4); Hematocrit 30.5 % (35.0-46.0); Hemoglobin 10.4 gm/dL (11.6-15.3); Lymph # (Auto) 2.5 th/mm3 (1.0-4.8); Lymph % (Auto) 25.4 % (9.0-44.0); Mean Corpuscular HGB Conc 33.9 % (32.0-36.0); Mean Corpuscular Hemoglobin 29.1 pg (27.0-34.0); Mean Corpuscular Volume 85.8 fL (80.0-100.0); Mean Platelet Volume 7.7 fL (7.0-11.0); Mono # (Auto) 0.6 th/mm3 (0.0-0.9); Mono % (Auto) 6.2 % (0.0-8.0); Neut # (Auto) 6.4 th/mm3 (1.8-7.7); Neut % (Auto) 66.1 % (16.0-70.0); Platelet Count 365 th/mm3 (150-450); Red Blood Count 3.56 mil/mm3 (4.00-5.30); Red Cell Distribution Width 14.8 % (11.6-17.2); White Blood Count 9.7 th/mm3 (4.0-11.0)
[2018-10-10 05:58] LABS: INR 1.3 Ratio; Prothrombin Time 13.2 sec (9.8-11.6)
[2018-10-10 06:14] LABS: Alanine Aminotransferase 144 U/L (10-53); Albumin 2.4 g/dL (3.4-5.0); Anion Gap 8 meq/L (5-15); Aspartate Aminotransferase 28 U/L (15-37); Blood Urea Nitrogen 9 mg/dL (7-18); Calcium 8.1 mg/dL (8.5-10.1); Carbon Dioxide 28.6 meq/L (21.0-32.0); Chloride 101 meq/L (98-107); Glomerular Filtration Rate 77 mL/min (>89); Glucose,Random 198 mg/dL (74-106); Potassium 4.5 meq/L (3.5-5.1); Sodium 138 meq/L (136-145)
[2018-10-10 06:17] LABS: Alkaline Phosphatase 270 U/L (45-117); Total Protein 6.4 g/dL (6.4-8.2)
--- NOTE | 2018-10-10 07:39 | P.PNONC ---
Subjective Interval history: Patient seen and examined, vital signs, labs, medications, [facility] consultant notes and imaging studies reviewed. Subjectively; patient reports improving gradually, she is presently sitting up on a bedside chair. She tells me she has been eating better, she has been ambulating and denies overt bleeding, difficulty breathing or chest pain at this time. She tells me she is likely going to be going home at some point early this week. Objective Vital Signs/Intake & Output: Vital Signs 10/09/18 08:00 10/09/18 08:17 10/09/18 09:00 Temperature Pulse Rate 75 80 Respiratory Rate Blood Pressure Pulse Oximetry 98 10/09/18 10:00 10/09/18 11:00 10/09/18 12:00 Temperature 97.7 F Pulse Rate 75 75 79 Respiratory Rate 16 Blood Pressure 102/60 Pulse Oximetry 97 10/09/18 13:00 10/09/18 14:00 10/09/18 15:00 Temperature 98.0 F Pulse Rate 85 82 88 Respiratory Rate 16 Blood Pressure 124/75 Pulse Oximetry 95 10/09/18 16:00 10/09/18 17:00 10/09/18 18:00 Temperature Pulse Rate 80 83 96 H Respiratory Rate Blood Pressure Pulse Oximetry 10/09/18 19:00 10/09/18 20:00 10/09/18 21:00 Temperature 98.1 F Pulse Rate 92 H 86 90 Respiratory Rate 16 Blood Pressure 114/81 Pulse Oximetry 95 95 10/09/18 21:35 10/09/18 22:00 10/09/18 23:00 Temperature 98.2 F Pulse Rate 85 86 Respiratory Rate 16 16 Blood Pressure 102/59 L Pulse Oximetry 94 L 10/10/18 00:00 10/10/18 01:00 10/10/18 02:00 Temperature Pulse Rate 86 85 86 Respiratory Rate Blood Pressure Pulse Oximetry 10/10/18 02:30 10/10/18 03:00 Temperature 98.2 F Pulse Rate 81 Respiratory Rate 16 16 Blood Pressure 110/73 Pulse Oximetry 95 Intake & Output 10/09/18 10/10/18 10/10/18 18:59 06:59 18:59 Intake Total 720 / 720 480 / 480 Output Total 1900 / 1900 1200 / 1200 Balance -1180 / -1180 -720 / -720 Weight 78.5 kg Intake: Oral 720 / 720 480 / 480 Output: Urine 1900 / 1900 1200 / 1200 Other: Date of Last Bowel Movement 10/09/18 10/09/18 # Bowel Movements 2 0 Result Diagrams: 10/10/18 04:52 10/10/18 04:52 Laboratory Results: Laboratory Results - last 24 hr 10/09/18 10/09/18 10/09/18 08:15 11:14 15:51 WBC RBC Hgb Hct MCV MCH MCHC RDW Plt Count MPV Neut % (Auto) Lymph % (Auto) [place] % (Auto) Eos % (Auto) Baso % (Auto) Neut # (Auto) Lymph # (Auto) [place] # (Auto) Eos # (Auto) Baso # (Auto) WBC Differential Differential Comment PT INR Sodium Potassium Chloride Carbon Dioxide Anion Gap BUN Creatinine Estimated GFR POC Glucose 294 H 362 H 79 Random Glucose Calcium Total Bilirubin AST ALT Alkaline Phosphatase Total Protein Albumin 10/09/18 10/09/18 10/10/18 16:41 21:21 04:52 WBC RBC Hgb Hct MCV MCH MCHC RDW Plt Count MPV Neut % (Auto) Lymph % (Auto) [place] % (Auto) Eos % (Auto) Baso % (Auto) Neut # (Auto) Lymph # (Auto) [place] # (Auto) Eos # (Auto) Baso # (Auto) WBC Differential Differential Comment PT 13.2 H INR 1.3 Sodium Potassium Chloride Carbon Dioxide Anion Gap BUN Creatinine Estimated GFR POC Glucose 104 259 H Random Glucose Calcium Total Bilirubin AST ALT Alkaline Phosphatase Total Protein Albumin 10/10/18 10/10/18 04:52 04:52 WBC 9.7 RBC 3.56 L Hgb 10.4 L Hct 30.5 L MCV 85.8 MCH 29.1 MCHC 33.9 RDW 14.8 Plt Count 365 D MPV 7.7 Neut % (Auto) 66.1 Lymph % (Auto) 25.4 [place] % (Auto) 6.2 Eos % (Auto) 2.0 Baso % (Auto) 0.3 Neut # (Auto) 6.4 Lymph # (Auto) 2.5 [place] # (Auto) 0.6 Eos # (Auto) 0.2 Baso # (Auto) 0.0 WBC Differential . Differential Comment Auto diff final PT INR Sodium 138 Potassium 4.5 Chloride 101 Carbon Dioxide 28.6 Anion Gap 8 BUN 9 Creatinine 0.91 Estimated GFR 77 L POC Glucose Random Glucose 198 H Calcium 8.1 L Total Bilirubin 0.6 AST 28 ALT 144 H Alkaline Phosphatase 270 H Total Protein 6.4 Albumin 2.4 L Culture Results: Microbiology 10/09/18 16:00 Stool Occult Blood (NAVI) - Final Stool Hemoccult negative Imaging Studies: Impressions Liver Ultrasound 10/09/18 14:38 CONCLUSION: 1. The common bile duct appears mildly prominent at 7 mm. The pancreas is not visualized secondary to bandages overlying the patient's abdomen. There is a trace amount of free fluid identified within Morison's pouch. No definite etiology seen for the patient's pain. Consider further evaluation with contrast- enhanced CT given the presence of the free fluid. Medications: Active Medications Generic Name Dose Route Start Last Admin Trade Name Freq PRN Reason Stop Dose Admin Al Hydroxide/Mg Hydroxide 30 ml 10/02/18 09:00 10/09/18 09:28 Milk Of [place] Liq PO Not Given DAILY GOLDY Albuterol 1 ampul 09/29/18 13:35 10/03/18 23:27 Duoneb Neb (Prn) NEB 1 ampul Q2HR NEB PRN Administration WHEEZING Amiodarone HCl 200 mg 09/29/18 21:00 10/02/18 20:05 Cordarone PO 200 mg Q12HR GOLDY Administration Aspirin 81 mg 09/30/18 09:00 10/09/18 09:27 Aspirin Chew PO 81 mg DAILY GOLDY Administration Atorvastatin Calcium 20 mg 09/25/18 21:00 10/02/18 20:05 Lipitor PO 20 mg HS GOLDY Administration Calcium Carbonate 500 mg 10/07/18 21:00 10/09/18 21:05 Tums Chew PO 500 mg BID GOLDY Administration Clopidogrel Bisulfate 75 mg 09/30/18 09:00 10/09/18 09:27 Plavix PO 75 mg DAILY GOLDY Administration Docusate Sodium 100 mg 10/02/18 21:00 10/09/18 21:09 Colace PO Not Given BID GOLDY Fondaparinux 7.5 mg 10/05/18 17:00 10/09/18 17:49 Arixtra Inj SQ 7.5 mg Q24H GOLDY Administration Furosemide 40 mg 10/07/18 14:15 10/09/18 09:26 Lasix Inj IV.PUSH 40 mg DAILY GOLDY Administration Insulin Aspart 0 unit 10/03/18 12:00 10/09/18 21:09 Novolog Insulin Correctional Sugar Inj SQ Not Given ACHS [facility] Protocol Insulin Glargine 38 units 10/08/18 21:00 10/09/18 21:10 Lantus Inj SQ 38 units HS GOLDY Administration Isosorbide Mononitrate 30 mg 09/24/18 09:00 09/30/18 12:01 Imdur PO Not Given DAILY GOLYD Morphine Sulfate 2 mg 10/03/18 11:56 10/10/18 02:28 Morphine Inj IV.PUSH 2 mg Q4H PRN Administration Acute Pain 1-10 Multivitamins/Minerals 1 tab 10/02/18 09:00 10/09/18 09:27 Theragran-M PO 1 tab DAILY GOLDY Administration Mupirocin 1 applicatio 10/02/18 21:00 10/09/18 21:09 Bactroban 2% Nasal Oint EACH NARE Not Given BID GOLDY Pantoprazole Sodium 40 mg 09/30/18 11:00 10/09/18 09:26 Protonix Inj IV.PUSH 40 mg DAILY GOLDY Administration Polyethylene Glycol 17 gm 10/03/18 09:00 10/09/18 09:28 Miralax PO Not Given DAILY GOLDY Potassium Chloride 20 meq 10/07/18 14:15 10/09/18 09:27 Klor-Con 10 PO 20 meq DAILY GOLDY Administration Ranolazine 500 mg 09/24/18 09:00 10/09/18 21:06 Ranexa PO 500 mg Q12H GOLDY Administration Senna/Docusate Sodium 1 tab 09/24/18 09:00 10/09/18 21:06 Jacqui-Colace PO Not Given BID GOLDY Sennosides 8.6 mg 10/02/18 21:00 10/09/18 21:10 Senokot PO Not Given HS GOLDY Sertraline HCl 50 mg 09/24/18 09:00 10/09/18 09:27 Zoloft PO 50 mg DAILY GOLDY Administration Sodium Chloride 2 ml 09/24/18 09:00 10/09/18 21:07 Ns Flush IV.FLUSH 2 ml BID GOLDY Administration Temazepam 7.5 mg 09/24/18 21:00 10/09/18 21:06 Restoril PO 7.5 mg HS GOLDY Administration Throat Lozenges 2 spray 10/04/18 17:48 11/13/18 21:15 Chloraseptic [place] OROPHARYNG 2 spray Q2H PRN Administration SORE THROAT Objective Remarks: GENERAL: Middle-aged female, sitting up on bedside, appears to be no acute distress, she is awake, alert and oriented x3. SKIN: Warm and dry. HEAD: Normocephalic. EYES: Conjunctivae are mildly pale, no scleral icterus. No injection or drainage. NECK: Supple, trachea midline. No JVD or lymphadenopathy. LYMPHATIC: No adenopathy. CARDIOVASCULAR: RRR, S1-S2 no obvious murmurs or gallops. RESPIRATORY: Decreased bibasilar breath sounds, no rhonchi rales or wheezes. No accessory muscle use. GASTROINTESTINAL: Abdomen soft, non-tender, nondistended. EXTREMITIES: Trace pretibial edema, no cyanosis, or edema. MUSCULOSKELETAL: Adequate muscle tone. NEUROLOGICAL: No obvious focal deficit. Awake, alert, and oriented x3. PSYCHIATRIC: Appropriate mood and affect; insight and judgment normal. Assessment/Plan - Plan Ms. Lira is a 58 year-old female patient who underwent urgent off-pump coronary artery bypass grafting x4 on 09/29/2018. The patient suffered occlusions of the graft within hours of undergoing surgery and she underwent left heart catheterization which revealed significant thrombus formation within the saphenous venous graft to the first and second obtuse marginals, additional thrombus had developed along the left anterior descending artery. The arterial thrombosis within the graft occurred while the patient was on antiplatelet agents. Hematology was consulted to rule out prothrombotic condition. Pro thrombotic workup indicated findings consistent with heparin-induced thrombocytopenia. Interestingly her initial heparin/platelet factor 4 antibody was negative, the YARITZA was positive. She was also found to have an initial positive for circulating lupus anticoagulant, confirmatory test will be due in 10-12 weeks. Recommendations: 1. Hyper acute CABG graft thrombosis: Found to be positive for heparin-induced thrombocytopenia which likely explains the patient's underlying prothrombotic state. Patient continues on Arixtra at 7.5 mg subcu daily. I would advised discharging her home on Arixtra 7.5 mg subcu daily; patient wishes to avoid warfarin. Outpatient follow-up will be arranged. 2. She is also on aspirin and Plavix per cardiovascular team, for antiplatelet effect. I have explained to the patient that her risk for bleeding related to dual antiplatelet therapy and anticoagulation will be significantly increased. I have advised her to remain vigilant and to monitor for hematuria and hematochezia. 3. Discussed with patient that she will need to tell her healthcare team that she is allergic to heparin in the future. This will be added to her allergies.
[2018-10-10] MEDS: Insulin NovoLOG Aspart Correctional Sugar Inj SQ SCH ×2 (08:01→11:15)
[2018-10-10] MEDS: Ranolazine 500 MG 12HR ER Tablet PO SCH (08:01)
[2018-10-10] MEDS: Sodium Chloride 0.9% 2 ML Flush BID IV.FLUSH SCH (08:02)
[2018-10-10] MEDS: Multivitamin/Minerals Therapeutic Tablet PO SCH (08:02)
[2018-10-10] MEDS: Sertraline 50 MG Tablet PO SCH (08:02)
[2018-10-10] MEDS: Pantoprazole Inj 40 MG Vial IV.PUSH SCH (08:02)
[2018-10-10] MEDS: Polyethylene Glycol 3350 17 GM Packet PO SCH (08:04)
[2018-10-10] MEDS: Docusate Sodium 100 MG Capsule PO SCH (08:04)
[2018-10-10] MEDS: Senna/Docusate Sodium 8.6/50 MG Tablet PO SCH (08:04)
[2018-10-10] MEDS: Mupirocin 2% Nasal Oint Topical Syringe EACH NARE SCH (08:04)
[2018-10-10 11:18] VITALS: BP 92/63
--- NOTE | 2018-10-10 12:55 | P.DS ---
Date of admission: 09/24/18 02:25 Primary care physician: UNKNOWN Attending physician on discharge: Tiana Johnson Anticipated date of discharge: 10/10/18 Brief History from admission: This is a 58-year-old female with a PMH of CAD and DM who presented to the ER w / complaints of chest pain x1 wk. Follows w/ Dr. Melissa as outpatient, s/p Cath 08/03/18 w/ significant small vessel disease, not amenable to intervention and recommendation for medical management, has been on Imdur and was started on Ranexa, but notes minimal improvement in chest pain. States chest pain is substernal, intermittent, moderate to severe, occurs at rest and w/ exertion, + improvement w/ nitro. On arrival, BP 128/76, HR 78, O2 sat 98% on RA, Afebrile. CBC unremarkable. INR 1.1. Trop negative. Chemistry unremarkable except for creatinine 1.23, previously 1.02 on 08/03/2018. CXR negative. Currently on Heparin/NTG gtt w/ improvement. PMH: CAD/ MT/ Stents/ HTN, HLP, DM insulin dependent EF 58% Patient update on day of discharge: on room air to be dc on arixtra to follow with Dr Annia curry also ASA and plavix no statin 2/2 elevated LFT no BB 2/2 labile BP DS: Diagnosis - Discharge Diagnosis (1) S/P coronary artery bypass graft x 4 Status: Acute (2) Renal insufficiency Status: Chronic (3) CAD (coronary artery disease), [place] coronary artery Status: Acute (4) Diabetes mellitus Status: Chronic (5) Subsequent non-ST elevation (NSTEMI) myocardial infarction Status: Acute (6) Unstable angina Status: Acute (7) Elevated LFTs Status: Acute (8) Heparin induced thrombocytopenia (HIT) Status: Acute DS: Medications - Discharge Medications Prescriptions: clopidogrel [Plavix] 75 mg PO DAILY #30 tab docusate sodium [DOK] 100 mg PO BID #60 cap fondaparinux [Arixtra] 7.5 mg SUBCUT Q24H #90 ml hydrocodone-acetaminophen [[place]] 1 tab PO Q6H PRN #30 tab PRN Reason: Acute Pain pydqtizd-igka-OS-calcium-mins [Thera M Plus (ferrous fumarat)] 1 tab PO DAILY # 30 tab potassium chloride [Klor-Con 10] 20 meq PO DAILY #30 tab DS: Summary Hospital Course: This is a 58yF with history of CAD who underwent off-pump CABG x 4 (RAMEY-->LAD, SVG-->OM1, SVG-->OM2, SVG-->PDA). intra-operatively it was noted that she had significant ST elevations. immediately post-operatively, it was noted that she had tombstoning on her EKG. She was taken emergently to the track laborer by Dr. Melissa where she had completely occluded grafts. He stented OM1, LAD. balloon angiopasty to OM2. She arrives back to the CVICU where I met her. She has had 4L crystalloid resuscitation. chest tubes have about 100cc sanguinous output. Of note, she was on a tranexamic acid infusion during the CABG which was started by anesthesia. the patient is intubated and no additional information is available from the patient. ROS unobtainable. I discussed the case with Dr. Melissa and Dr. Campos at bedside: plan to initiate heparin infusion 4 hours post-arterial sheath pull. I also discussed re-evaluation of LV function. Dr. Melissa and I performed HAKAN at bedside which demonstrated lateral and inferolateral hypokinesis, EF 45%, mild TR. 09/30 Patient is awake and alert. On Neosyn 20 mics, Precedex 0.3 and Heparin drip. Afebrile. 10/01 Patient did not tolerate CPAP yesterday, awake and alert. Had T:102.7 yesterday. On Neosyn 20 mics, Precedex 0.2 and Heparin drip. 10/02: Afebrile. Extubated yesterday currently on 3 L nasal cannula. Remains on phenylephrine drip at 30 mcg/min. Heparin drip at 900 units an hour. Heme otology workup currently in process. Speech therapy to evaluate swelling. Out of bed to chair today. 10/03: Overnight received 2 units of PRBC for hemoglobin of 7.4. Became hypoxemic posttransfusion, and had to be placed on partial nonrebreather. Currently remains on partial nonrebreather, chest x-ray shows worsening pulmonary vascular congestion/pulmonary edema. Also it was noted that liver enzymes AST 1157, ALT 1006. Liver ultrasound suggestive of a calculus cholecystitis. I have discontinued Tylenol products, held amiodarone and atorvastatin, requested GI consult. Patient may need cholecystostomy tube placement 10/04: LFTs trending downward. Currently on partial nonrebreather mask. Amiodarone, atorvastatin and acetaminophen all discontinued. On furosemide 40 mg 3 times daily currently. Hepatobiliary scan pending. CVS 09/26 pt on heparin gtt, 3 mcq of NTG will resume imdur and dc NTG, pt pain free eval PRU in am for timing of surgery off Brilinta since Thursday 09/27 off NTG gtt / on imdur/ heparin gtt, painfree PRU>250 stable for surgery on 09/28 doing well, no chest pain during the night on heparin gtt stable for surgery in am 09/29 SURGICAL PROCEDURE 1. Urgent Off-pump Coronary Artery Bypass Grafting x 4 with Left Internal Mammary Artery (RAMEY) to Left Anterior Descending (LAD), reverse saphenous vein graft to obtuse Marginal1 and sequentially to the Obtuse Marginal 2 branches of the left Circumflex artery, reverse saphenous vein graft to the posterior Descending branch of the right Coronary artery 2. Left leg Endoscopic Vein Range 3. Intraoperative Vein Mapping. 09/30 Clinically and hemodynamic is stable Events noted with hyper acute thrombosis of all the grafts. PCI to the circumflex distribution Greatly appreciate Dr. Melissa and Dr. Enriquez's assistance in her care Wean to extubate today Presently on aspirin Plavix and heparin drip. Will defer to Dr. Melissa regarding long-term antiplatelet therapy Greatly appreciate Dr. Curry's input regarding further workup of her thrombotic state 10/01 Doing well this morning Awake alert oriented and responds appropriately verbal commands Weaning ventilator with plans to extubate today Hemodynamically stable Maintain chest tubes to drainage for now 10/02 Remains weak Not taking deep breaths or coughing Needs PT OT and incentive spirometry Likely DC chest tubes in a.m. once she has gotten out of bed 10/03 minimal drainage in chest tube will dc today / heparin off to remove chest tubes, then resume weak, sleepy , will dc narcotics for now elevated LFT tylenol , amiodarone and statin held ammonia level 53 yesterday on partial NRB, needs aggressive pulm toileting OOB with assistance/ PT 10/04 remains on partial NRB mask diuresis increased PLT 83, continue ASA, plavix and heparin gtt for now with recent acute graft closure await final decision regarding NOAC on pt / was on Brilinta before surgery 10/05 up in chair, now on nasal cannula PLT improving 120 awake input from cardiology and Heme/ concerning oral anticoagulation/ continue PT/OT eval for transfer from CVICU in am 10/06 HIT + , off all heparin products / on arixtra ASA, plavix on 2 liter nasal cannula/ CXR noted dose with additional lasix this am for Hida scan today will transfer out of CVICU today 10/07 recheck LFT in am Heme / to eval for transitioning arixtra to coumadin / once LFT recovered remains off amiodarone / statin BP and heart rhythm stable continue PT/OT/ on room air daily diuresis 10/08/18 Improving, c/o incisional pain 10/09/18 No complaints, resting now 10/10 on arixtra , waiting for MRCP, then dc home when cleared by GI - Time Spent with Patient Total time spent providing and/or coordinating discharge services: Greater than 30 minutes - Quality: VTE Deep Vein Thrombosis/Pulmonary Embolism Present on Admission: No Exam Vital signs: Vital Signs 10/09/18 13:00 10/09/18 14:00 10/09/18 15:00 Temperature 98.0 F Pulse Rate 85 82 88 Respiratory Rate 16 Blood Pressure 124/75 Pulse Oximetry 95 10/09/18 16:00 10/09/18 17:00 10/09/18 18:00 Temperature Pulse Rate 80 83 96 H Respiratory Rate Blood Pressure Pulse Oximetry 10/09/18 19:00 10/09/18 20:00 10/09/18 21:00 Temperature 98.1 F Pulse Rate 92 H 86 90 Respiratory Rate 16 Blood Pressure 114/81 Pulse Oximetry 95 95 10/09/18 21:35 10/09/18 22:00 10/09/18 23:00 Temperature 98.2 F Pulse Rate 85 86 Respiratory Rate 16 16 Blood Pressure 102/59 L Pulse Oximetry 94 L 10/10/18 00:00 10/10/18 01:00 10/10/18 02:00 Temperature Pulse Rate 86 85 86 Respiratory Rate Blood Pressure Pulse Oximetry 10/10/18 02:30 10/10/18 03:00 10/10/18 04:00 Temperature 98.2 F Pulse Rate 81 79 Respiratory Rate 16 16 Blood Pressure 110/73 Pulse Oximetry 95 10/10/18 05:00 10/10/18 06:00 10/10/18 07:00 Temperature 98.2 F Pulse Rate 84 79 86 Respiratory Rate 18 Blood Pressure 100/64 Pulse Oximetry 96 10/10/18 08:00 10/10/18 09:00 10/10/18 09:09 Temperature Pulse Rate 78 78 Respiratory Rate Blood Pressure Pulse Oximetry 96 96 10/10/18 10:00 10/10/18 11:00 10/10/18 12:00 Temperature 97.3 F L Pulse Rate 83 84 80 Respiratory Rate 20 Blood Pressure 92/63 L Pulse Oximetry 94 L Intake & Output 10/09/18 10/10/18 10/10/18 18:59 06:59 18:59 Intake Total 720 / 720 480 / 480 Output Total 1900 / 1900 1200 / 1200 Balance -1180 / -1180 -720 / -720 Weight 78.5 kg Intake: Oral 720 / 720 480 / 480 Output: Urine 1900 / 1900 1200 / 1200 Other: Date of Last Bowel Movement 10/09/18 10/09/18 10/09/18 # Bowel Movements 2 0 - Constitutional no acute distress - Routine HEENT Exam Head: Present: normocephalic Eye: Present: EOMI, PERRL, normal accommodation - Routine Neck Exam Present: supple, full ROM - Routine Chest/Breast/Axilla Exam Chest wall: Present: tenderness - Routine Respiratory Exam Present: decreased breath sounds, CTA bilaterally - Routine Cardiovascular Exam Present: RRR, S1, S2 Comments: mild edema - Routine Abdominal Exam Present: soft, normoactive bowel sounds - Routine Extremities Exam Present: edema - Routine Skin Exam Present: intact, wounds Comments: sternal incision intact and well approximated - Routine Neurological Exam Present: alert, oriented X3 Results Procedures completed during hospitalization: None Labs on day of discharge: Labs from last 24 hours 10/10/18 10/10/18 10/10/18 11:51 11:08 07:42 WBC RBC Hgb Hct MCV MCH MCHC RDW Plt Count MPV Neut % (Auto) Lymph % (Auto) [place] % (Auto) Eos % (Auto) Baso % (Auto) Neut # (Auto) Lymph # (Auto) [place] # (Auto) Eos # (Auto) Baso # (Auto) WBC Differential Differential Comment PT INR Sodium Potassium Chloride Carbon Dioxide Anion Gap BUN Creatinine Estimated GFR POC Glucose 185 H 205 H 157 H Random Glucose Calcium Total Bilirubin AST ALT Alkaline Phosphatase Total Protein Albumin Stool [id number] 10/10/18 10/10/18 10/10/18 04:52 04:52 04:52 WBC 9.7 RBC 3.56 L Hgb 10.4 L Hct 30.5 L MCV 85.8 MCH 29.1 MCHC 33.9 RDW 14.8 Plt Count 365 D MPV 7.7 Neut % (Auto) 66.1 Lymph % (Auto) 25.4 [place] % (Auto) 6.2 Eos % (Auto) 2.0 Baso % (Auto) 0.3 Neut # (Auto) 6.4 Lymph # (Auto) 2.5 [place] # (Auto) 0.6 Eos # (Auto) 0.2 Baso # (Auto) 0.0 WBC Differential . Differential Comment Auto diff final PT 13.2 H INR 1.3 Sodium 138 Potassium 4.5 Chloride 101 Carbon Dioxide 28.6 Anion Gap 8 BUN 9 Creatinine 0.91 Estimated GFR 77 L POC Glucose Random Glucose 198 H Calcium 8.1 L Total Bilirubin 0.6 AST 28 ALT 144 H Alkaline Phosphatase 270 H Total Protein 6.4 Albumin 2.4 L Stool s-3-[id number] 10/09/18 10/09/18 10/09/18 21:21 16:41 16:00 WBC RBC Hgb Hct MCV MCH MCHC RDW Plt Count MPV Neut % (Auto) Lymph % (Auto) [place] % (Auto) Eos % (Auto) Baso % (Auto) Neut # (Auto) Lymph # (Auto) [place] # (Auto) Eos # (Auto) Baso # (Auto) WBC Differential Differential Comment PT INR Sodium Potassium Chloride Carbon Dioxide Anion Gap BUN Creatinine Estimated GFR POC Glucose 259 H 104 Random Glucose Calcium Total Bilirubin AST ALT Alkaline Phosphatase Total Protein Albumin Stool [id number]-5-Orszervahnq Pending 10/09/18 15:51 WBC RBC Hgb Hct MCV MCH MCHC RDW Plt Count MPV Neut % (Auto) Lymph % (Auto) [place] % (Auto) Eos % (Auto) Baso % (Auto) Neut # (Auto) Lymph # (Auto) [place] # (Auto) Eos # (Auto) Baso # (Auto) WBC Differential Differential Comment PT INR Sodium Potassium Chloride Carbon Dioxide Anion Gap BUN Creatinine Estimated GFR POC Glucose 79 Random Glucose Calcium Total Bilirubin AST ALT Alkaline Phosphatase Total Protein Albumin Stool p-7-Ragcsexeshl - Impressions ITS Impressions Lower Extremity Ultrasound 09/24/18 00:00 CONCLUSION: Nonvisualization of the greater saphenous vein and portions of the lower legs bilaterally. Venous Doppler Study 09/24/18 00:00 CONCLUSION: Negative study. No venous thrombosis of either lower extremity. Carotid Doppler Study 09/28/18 10:09 CONCLUSION: 1. Right Internal Carotid Artery: No significant stenosis or atherosclerotic plaque is visualized. 2. Left Internal Carotid Artery: No significant stenosis or atherosclerotic plaque is visualized. Abdomen/Bladder Ultrasound 10/02/18 00:00 CONCLUSION: 1. Increased echogenicity of the kidneys characteristic of medical renal disease. No hydronephrosis. No perinephric fluid. Barba catheter in bladder, decompressed. Bile Acid Absorption NM 10/06/18 00:00 CONCLUSION: 1. Borderline abnormal gallbladder ejection fraction. No evidence of acute cholecystitis. 2. Otherwise within normal limits. Chest X-Ray 10/06/18 06:00 CONCLUSION: 1. Rotated examination with increased opacity in the left lung which may be artifactual. 2. Mild cardiomegaly and apparent left effusion. Liver Ultrasound 10/09/18 14:38 CONCLUSION: 1. The common bile duct appears mildly prominent at 7 mm. The pancreas is not visualized secondary to bandages overlying the patient's abdomen. There is a trace amount of free fluid identified within Morison's pouch. No definite etiology seen for the patient's pain. Consider further evaluation with contrast- enhanced CT given the presence of the free fluid. Discharge Plan - Discharge Disposition Patient Disposition: /Home Health Service - Discharge Condition Condition: Stable - Discharge Order Discharge Orders: Discharge Order (Routine); Ordered 10/10/18 Ordered By: Lis Handy - Discharge Details Anticipated Discharge Date: 10/10/18 Discharge Comment: when cleared by GI - Physicians Team Primary Care Provider: UNKNOWN, Attending Provider: Ernesto Campos Other Providers: Richard Yuen MD ; Ernesto Campos MD ; Phil Curry MD ; Waqas Enriquez MD ; Js Lyons MD
--- NOTE | 2018-10-10 13:46 | MR ---
EXAM DATE: 10/10/2018 1:15 PM EST AGE/SEX: 58 years / Female INDICATIONS: Abdominal pain. CLINICAL DATA: This is the patient's subsequent encounter. Patient reports that signs and symptoms h ave been present for 3 days and indicates a pain score of 3/10. MEDICAL/SURGICAL HISTORY: Diabetes mellitus type II. renal insufficiency CABG. rotator cuff, l eft toe surgery, carpal tunnel, cardiac stents COMPARISON: No prior exams available for comparison. TECHNIQUE: Multiplanar, multisequence images of the abdomen were obtained without contrast including dedicated cholangiographic images. FINDINGS: Liver: The liver is homogeneous and normal in signal intensity with no focal defects. Intrahepatic Bile Ducts: There is no intrahepatic biliary ductal dilatation. Common Bile Duct: The common bile duct is normal in caliber and measures 6 mm in diameter. No fillin g defects or obstructing lesions are identified. Gallbladder: The gallbladder is normal with no evidence for cholelithiasis, gallbladder wall thicken ing, or pericholecystic fluid. Pancreas: The pancreas appears normal in signal with no focal parenchymal abnormalities. The pancrea tic duct is normal in caliber with no filling defects, or obstructing lesions identified. Small posterior layering bilateral pleural effusions. Edema involving the posterior abdominal wall an d bilateral flanks. Trace amount of fluid surrounding both kidneys. No hydronephrosis. CONCLUSION: 1. No biliary dilatation. Common bile duct measures 6 mm. No stones or sludge involving the gallblad wan. 2. Small bilateral pleural effusions. 3. Anasarca. Electronically signed by: Randy Wayne MD 10/10/2018 1:45 PM EST
--- NOTE | 2018-10-10 14:58 | P.DCO ---
- Diagnosis (1) Renal insufficiency Status: Chronic (2) CAD (coronary artery disease), [place] coronary artery Status: Acute (3) Diabetes mellitus Status: Chronic (4) Acute ST elevation myocardial infarction (STEMI) Status: Acute (5) Subsequent non-ST elevation (NSTEMI) myocardial infarction Status: Acute (6) S/P coronary artery bypass graft x 4 Status: Acute (7) Heparin induced thrombocytopenia (HIT) Status: Acute - Home Health Nursing Order: Medical education, Signs/symptoms of disease process, Diabetic education , Medication education-adverse effect, Wound care and dressing changes, Nursing assessment with vital signs Instructions: Heart and Vascular Surgery patients *Special attention to sternal dressing Mandatory frequency Assess and evaluation, 4 days in a row The next week 3X week 2 times a week for 4 weeks 1 time a week for 5 weeks Schedule Heart and Vascular patients for full 60 day certification period Initial visit Review Open Heart Surgery Discharge Instructions (Sternal precautions, Activity, Elastic hose, Incision care, Driving, Incentive spirometry, Smoking, [place], Work and other) Need Betadine to paint incision Medication reconciliation Importance of follow up care/ check on appointments Make calendar record temperature daily When to call [facility] nurse, review instructions, phone list Incentive Spirometry, demonstration Visit 1- Begin discharge instruction for patient family and/ or caregiver using teach back method- Signs and symptoms of infection Disease characteristics Medicines and side effects Foods and nutrition/ appetite Infection control/ hand washing/ hygiene Visit 2- Continue teaching Discharge instructions- include additional information on smoking cessation , sternal dressing (sternal vac) Visit 3- Continue teaching- Cough and deep breathing, incision monitoring. Choose my plate Visit 4- Continue teaching- Discuss limitations Discuss how they are feeling Discuss progress toward goals Remaining visits- continue teaching and monitoring For any questions please call : Wednesday 8am-5pm Heart & Vascular Surgery Office ( Dr. Campos & Dr. Johnson), After Hours / Nights (5pm -8am) Weekends and Holidays Please call [facility] Cardiac Intermediate Care Unit (CIC) Charge Nurse Incentive spirometry Q1 hr x 10, while awake, also use acapella device hourly whole awake Sternal Breast Bone Precautions: NO pushing or pulling, ( pt must use sternal pillow to support chest with all activities and with coughing ( takes up to 3 months breast bone to heal ) All females to wear sternal bra , launder as needed Daily incision care: ok to shower daily, no tub bath. Wash all incisions with liquid dial soap, clean wash cloth to each site, rinse and pat dry. Observe for any signs of infection, such as drainage which is dark yellow, philip, green or foul smelling. Immediately report to the surgeon any drainage from the chest incision, or legs, and for any abnormal drainage from the chest tube sites. Notify surgeon if any temp >101.5 degrees F. When specialty dressing removed/ or if you do not have one, continue to shower daily as above, then rinse and pat incision dry and paint with betadine daily x 5 days. Allow steri strips to fall off if you have any. Avoid lotions, creams, salves, oils, etc. for the first month please obtain CBC, BMP, results to Dr. 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 Campos & Dr. Johnson), After Hours / Nights (5pm -8am) Weekends and Holidays Please call [facility] Cardiac Intermediate Care Unit (CIC) Charge Nurse - Case Management Consult Case Management Consult-Home Health: Yes - Certification I have seen patient Aditi Lira on 10/10/18. My clinical findings support the need for the requested home health care services because: Deconditioned with increased weakness I certify that my clinical findings support that this patient is homebound because: Post-op weakness
[2018-10-10 15:35] VITALS: PULSE 85; RESP 18; TEMP 98.2; O2SAT 95
--- NOTE | 2018-10-10 16:05 | P.PNGI ---
Subjective Interval history: Patient sitting up in chair at bedside Family visiting No reported complaints Possible discharge planned for today <Stacey Brothers - Last Filed: 10/10/18 16:01> Physical Exam Vital signs: Vital Signs 10/09/18 17:00 10/09/18 18:00 10/09/18 19:00 Temperature 98.1 F Pulse Rate 83 96 H 92 H Respiratory Rate 16 Blood Pressure 114/81 Pulse Oximetry 95 10/09/18 20:00 10/09/18 21:00 10/09/18 21:35 Temperature Pulse Rate 86 90 Respiratory Rate 16 Blood Pressure Pulse Oximetry 95 10/09/18 22:00 10/09/18 23:00 10/10/18 00:00 Temperature 98.2 F Pulse Rate 85 86 86 Respiratory Rate 16 Blood Pressure 102/59 L Pulse Oximetry 94 L 10/10/18 01:00 10/10/18 02:00 10/10/18 02:30 Temperature Pulse Rate 85 86 Respiratory Rate 16 Blood Pressure Pulse Oximetry 10/10/18 03:00 10/10/18 04:00 10/10/18 05:00 Temperature 98.2 F Pulse Rate 81 79 84 Respiratory Rate 16 Blood Pressure 110/73 Pulse Oximetry 95 10/10/18 06:00 10/10/18 07:00 10/10/18 08:00 Temperature 98.2 F Pulse Rate 79 86 78 Respiratory Rate 18 Blood Pressure 100/64 Pulse Oximetry 96 96 10/10/18 09:00 10/10/18 09:09 10/10/18 10:00 Temperature Pulse Rate 78 83 Respiratory Rate Blood Pressure Pulse Oximetry 96 10/10/18 11:00 10/10/18 12:00 10/10/18 14:00 Temperature 97.3 F L Pulse Rate 84 80 80 Respiratory Rate 20 Blood Pressure 92/63 L Pulse Oximetry 94 L 10/10/18 15:00 Temperature 98.2 F Pulse Rate 85 Respiratory Rate 18 Blood Pressure Pulse Oximetry 95 Intake & Output 10/09/18 10/10/18 10/10/18 18:59 06:59 18:59 Intake Total 720 / 720 480 / 480 Output Total 1900 / 1900 1200 / 1200 Balance -1180 / -1180 -720 / -720 Weight 78.5 kg Intake: Oral 720 / 720 480 / 480 Output: Urine 1900 / 1900 1200 / 1200 Other: Date of Last Bowel Movement 10/09/18 10/09/18 10/09/18 # Bowel Movements 2 0 - Constitutional no acute distress - Routine HEENT Exam Head: Present: normocephalic - Routine Respiratory Exam Present: CTA bilaterally. Absent: accessory muscle use - Routine Cardiovascular Exam Present: S1, S2 - Routine Abdominal Exam Present: soft, normoactive bowel sounds. Absent: tenderness, distended, guarding, firm, rigid - Routine Neurological Exam Present: alert, oriented X3 - Urinary Catheter Management Indwelling Temp Sensing Catheter Cath placed during this visit: yes, but has since been removed by the nurse Reason for continuing: Decision to DC catheter Insertion date: 09/29/18 Insertion time: 08:30 Removal date: 10/06/18 Removal time: 14:00 <Stacey Brothers - Last Filed: 10/10/18 16:01> Vital signs: Vital Signs 10/09/18 19:00 10/09/18 20:00 10/09/18 21:00 Temperature 98.1 F Pulse Rate 92 H 86 90 Respiratory Rate 16 Blood Pressure 114/81 Pulse Oximetry 95 95 10/09/18 21:35 10/09/18 22:00 10/09/18 23:00 Temperature 98.2 F Pulse Rate 85 86 Respiratory Rate 16 16 Blood Pressure 102/59 L Pulse Oximetry 94 L 10/10/18 00:00 10/10/18 01:00 10/10/18 02:00 Temperature Pulse Rate 86 85 86 Respiratory Rate Blood Pressure Pulse Oximetry 10/10/18 02:30 10/10/18 03:00 10/10/18 04:00 Temperature 98.2 F Pulse Rate 81 79 Respiratory Rate 16 16 Blood Pressure 110/73 Pulse Oximetry 95 10/10/18 05:00 10/10/18 06:00 10/10/18 07:00 Temperature 98.2 F Pulse Rate 84 79 86 Respiratory Rate 18 Blood Pressure 100/64 Pulse Oximetry 96 10/10/18 08:00 10/10/18 09:00 10/10/18 09:09 Temperature Pulse Rate 78 78 Respiratory Rate Blood Pressure Pulse Oximetry 96 96 10/10/18 10:00 10/10/18 11:00 10/10/18 12:00 Temperature 97.3 F L Pulse Rate 83 84 80 Respiratory Rate 20 Blood Pressure 92/63 L Pulse Oximetry 94 L 10/10/18 14:00 10/10/18 15:00 Temperature 98.2 F Pulse Rate 80 85 Respiratory Rate 18 Blood Pressure Pulse Oximetry 95 Intake & Output 10/09/18 10/10/18 10/10/18 18:59 06:59 18:59 Intake Total 720 / 720 480 / 480 Output Total 1900 / 1900 1200 / 1200 Balance -1180 / -1180 -720 / -720 Weight 78.5 kg Intake: Oral 720 / 720 480 / 480 Output: Urine 1900 / 1900 1200 / 1200 Other: Date of Last Bowel Movement 10/09/18 10/09/18 10/09/18 # Bowel Movements 2 0 - Urinary Catheter Management Indwelling Temp Sensing Catheter Cath placed during this visit: no <Josephine Cabral A - Last Filed: 10/10/18 18:18> Results - Labs CBC & Chem 7: 10/10/18 04:52 10/10/18 04:52 Laboratory Results - last 24 hr 10/09/18 10/09/18 10/09/18 15:51 16:41 21:21 WBC RBC Hgb Hct MCV MCH MCHC RDW Plt Count MPV Neut % (Auto) Lymph % (Auto) [place] % (Auto) Eos % (Auto) Baso % (Auto) Neut # (Auto) Lymph # (Auto) [place] # (Auto) Eos # (Auto) Baso # (Auto) WBC Differential Differential Comment PT INR Sodium Potassium Chloride Carbon Dioxide Anion Gap BUN Creatinine Estimated GFR POC Glucose 79 104 259 H Random Glucose Calcium Total Bilirubin AST ALT Alkaline Phosphatase Total Protein Albumin 10/10/18 10/10/18 10/10/18 04:52 04:52 04:52 WBC 9.7 RBC 3.56 L Hgb 10.4 L Hct 30.5 L MCV 85.8 MCH 29.1 MCHC 33.9 RDW 14.8 Plt Count 365 D MPV 7.7 Neut % (Auto) 66.1 Lymph % (Auto) 25.4 [place] % (Auto) 6.2 Eos % (Auto) 2.0 Baso % (Auto) 0.3 Neut # (Auto) 6.4 Lymph # (Auto) 2.5 [place] # (Auto) 0.6 Eos # (Auto) 0.2 Baso # (Auto) 0.0 WBC Differential . Differential Comment Auto diff final PT 13.2 H INR 1.3 Sodium 138 Potassium 4.5 Chloride 101 Carbon Dioxide 28.6 Anion Gap 8 BUN 9 Creatinine 0.91 Estimated GFR 77 L POC Glucose Random Glucose 198 H Calcium 8.1 L Total Bilirubin 0.6 AST 28 ALT 144 H Alkaline Phosphatase 270 H Total Protein 6.4 Albumin 2.4 L 10/10/18 10/10/18 10/10/18 07:42 11:08 11:51 WBC RBC Hgb Hct MCV MCH MCHC RDW Plt Count MPV Neut % (Auto) Lymph % (Auto) [place] % (Auto) Eos % (Auto) Baso % (Auto) Neut # (Auto) Lymph # (Auto) [place] # (Auto) Eos # (Auto) Baso # (Auto) WBC Differential Differential Comment PT INR Sodium Potassium Chloride Carbon Dioxide Anion Gap BUN Creatinine Estimated GFR POC Glucose 157 H 205 H 185 H Random Glucose Calcium Total Bilirubin AST ALT Alkaline Phosphatase Total Protein Albumin Microbiology 10/09/18 16:00 Stool Stool Occult Blood (NAVI) - Final Hemoccult negative - Imaging Impressions Cholangiopancreatography MRI 10/10/18 08:00 CONCLUSION: 1. No biliary dilatation. Common bile duct measures 6 mm. No stones or sludge involving the gallbladder. 2. Small bilateral pleural effusions. 3. Anasarca. - Procedures None <Stacey Brothers - Last Filed: 10/10/18 16:01> - Labs CBC & Chem 7: 10/10/18 04:52 10/10/18 04:52 Laboratory Results - last 24 hr 10/09/18 10/10/18 10/10/18 21:21 04:52 04:52 WBC 9.7 RBC 3.56 L Hgb 10.4 L Hct 30.5 L MCV 85.8 MCH 29.1 MCHC 33.9 RDW 14.8 Plt Count 365 D MPV 7.7 Neut % (Auto) 66.1 Lymph % (Auto) 25.4 [place] % (Auto) 6.2 Eos % (Auto) 2.0 Baso % (Auto) 0.3 Neut # (Auto) 6.4 Lymph # (Auto) 2.5 [place] # (Auto) 0.6 Eos # (Auto) 0.2 Baso # (Auto) 0.0 WBC Differential . Differential Comment Auto diff final PT 13.2 H INR 1.3 Sodium Potassium Chloride Carbon Dioxide Anion Gap BUN Creatinine Estimated GFR POC Glucose 259 H Random Glucose Calcium Total Bilirubin AST ALT Alkaline Phosphatase Total Protein Albumin 10/10/18 10/10/18 10/10/18 04:52 07:42 11:08 WBC RBC Hgb Hct MCV MCH MCHC RDW Plt Count MPV Neut % (Auto) Lymph % (Auto) [place] % (Auto) Eos % (Auto) Baso % (Auto) Neut # (Auto) Lymph # (Auto) [place] # (Auto) Eos # (Auto) Baso # (Auto) WBC Differential Differential Comment PT INR Sodium 138 Potassium 4.5 Chloride 101 Carbon Dioxide 28.6 Anion Gap 8 BUN 9 Creatinine 0.91 Estimated GFR 77 L POC Glucose 157 H 205 H Random Glucose 198 H Calcium 8.1 L Total Bilirubin 0.6 AST 28 ALT 144 H Alkaline Phosphatase 270 H Total Protein 6.4 Albumin 2.4 L 10/10/18 11:51 WBC RBC Hgb Hct MCV MCH MCHC RDW Plt Count MPV Neut % (Auto) Lymph % (Auto) [place] % (Auto) Eos % (Auto) Baso % (Auto) Neut # (Auto) Lymph # (Auto) [place] # (Auto) Eos # (Auto) Baso # (Auto) WBC Differential Differential Comment PT INR Sodium Potassium Chloride Carbon Dioxide Anion Gap BUN Creatinine Estimated GFR POC Glucose 185 H Random Glucose Calcium Total Bilirubin AST ALT Alkaline Phosphatase Total Protein Albumin Microbiology 10/09/18 16:00 Stool Stool Occult Blood (NAVI) - Final Hemoccult negative - Imaging Impressions Cholangiopancreatography MRI 10/10/18 08:00 CONCLUSION: 1. No biliary dilatation. Common bile duct measures 6 mm. No stones or sludge involving the gallbladder. 2. Small bilateral pleural effusions. 3. Anasarca. <Josephine Cabral A - Last Filed: 10/10/18 18:18> Assessment and Plan (1) Elevated LFTs Status: Acute Code(s): R94.5 - Abnormal results of liver function studies - Plan 10/07/2018 Elevated liver enzymes Patient awake and alert sitting up in chair at bedside. Denies any nausea or vomiting Hemoglobin 9.6 hematocrit 28.4 platelet count 197 10/06/2018 AST 218 ALT 520 alk phos 383 all trending down-likely related to medications/shock liver as patient is post CABG 10/08/2018 Elevated liver enzymes Patient awake and alert sitting up in bed. Denies any nausea vomiting or this time. No new labs this a.m. 10/09/2018 Labs immunology pending. INR 1.3 Patient denies abdominal pain nausea or vomiting. Ultrasound abdomen liver revealed the following findings The common bile duct appears mildly prominent at 7 mm. The pancreas is not visualized secondary to bandages overlying the patient's abdomen. There is a trace amount of free fluid identified within Morison's pouch. No definite etiology seen for the patient's pain. Consider further evaluation with contrast- enhanced CT given the presence of the free fluid. 10/10/2018 Serum immunology pending, INR 1.3 Hemoglobin 10.4 hematocrit 30.5 AST 28 ALT 144 alk phos 270 all trending down 10/10/2018 MRCP revealed the following findings: 1. No biliary dilatation. Common bile duct measures 6 mm. No stones or sludge involving the gallbladder. 2. Small bilateral pleural effusions. 3. Anasarca. Plan -Cardiac diet -Supportive care -Patient agrees to follow-up post discharge -Patient is stable for discharge from GI standpoint This patient has been seen by myself and Dr. Cabral and this note is written on his behalf - Attending Attestation Dr. Cabral <Stacey Brothers - Last Filed: 10/10/18 16:01> (1) Elevated LFTs Status: Acute Code(s): R94.5 - Abnormal results of liver function studies - Attending Attestation Seen and plan as above, MRCP findings noted, LFT's normalizing. Follow up enzymes periodically and further workup for further increase. <Josephine Cabral - Last Filed: 10/10/18 18:18>
[2018-10-10] MEDS: FONDAPARINUX 7.5 MG/0.6 ML SQ SCH (16:42)
--- NOTE | 2018-10-10 23:35 | P.PNCA ---
Subjective Interval history: Feeling much better Plan discharge today Medications and Allergies Active Medications: Active Medications Al Hydroxide/Mg Hydroxide (Milk Of Magnesia Liq) 30 ml PO DAILY [facility] Last Admin: 10/10/18 08:04 Dose: Not Given Albuterol (Duoneb Neb (Prn)) 1 ampul NEB Q2HR NEB PRN PRN Reason: WHEEZING Last Admin: 10/03/18 23:27 Dose: 1 ampul Amiodarone HCl (Cordarone) 200 mg PO Q12HR [facility] Last Admin: 10/02/18 20:05 Dose: 200 mg Aspirin (Aspirin Chew) 81 mg PO DAILY [facility] Last Admin: 10/10/18 08:02 Dose: 81 mg Atorvastatin Calcium (Lipitor) 20 mg PO HS [facility] Last Admin: 10/02/18 20:05 Dose: 20 mg Bisacodyl (Dulcolax Supp) 10 mg RECTAL PRN PRN PRN Reason: SEE LABEL COMMENTS Calcium Carbonate (Tums Chew) 500 mg PO BID [facility] Last Admin: 10/10/18 08:02 Dose: 500 mg Clopidogrel Bisulfate (Plavix) 75 mg PO DAILY [facility] Last Admin: 10/10/18 08:02 Dose: 75 mg Dextrose (D50w Vial) 50 ml IV.PUSH UNSCH PRN PRN Reason: PER HYPOGLYCEMIA PROTOCOL Docusate Sodium (Colace) 100 mg PO BID [facility] Last Admin: 10/10/18 08:04 Dose: Not Given Fondaparinux (Arixtra Inj) 7.5 mg SQ Q24H [facility] Last Admin: 10/10/18 16:42 Dose: 7.5 mg Furosemide (Lasix Inj) 40 mg IV.PUSH DAILY [facility] Last Admin: 10/10/18 08:01 Dose: 40 mg Glucagon (Glucagon Inj) 1 mg OTHER PRN PRN PRN Reason: For hypoglycemia Insulin Aspart (Novolog Insulin Correctional Sugar Inj) 0 unit SQ [facility]; Protocol Last Admin: 10/10/18 11:15 Dose: Not Given Insulin Glargine (Lantus Inj) 38 units SQ [facility] Last Admin: 10/09/18 21:10 Dose: 38 units Isosorbide Mononitrate (Imdur) 30 mg PO DAILY [facility] Last Admin: 09/30/18 12:01 Dose: Not Given Lactulose (Lactulose Liq) 30 ml PO DAILY PRN PRN Reason: SEVERE CONSITIPATION Morphine Sulfate (Morphine Inj) 2 mg IV.PUSH Q4H PRN PRN Reason: Acute Pain 1-10 Last Admin: 10/10/18 08:03 Dose: 2 mg Multivitamins/Minerals (Theragran-M) 1 tab PO DAILY [facility] Last Admin: 10/10/18 08:02 Dose: 1 tab Mupirocin (Bactroban 2% Nasal Oint) 1 applicatio EACH NARE BID [facility] Last Admin: 10/10/18 08:04 Dose: Not Given Ondansetron HCl (Zofran Inj) 4 mg IV.PUSH Q6H PRN PRN Reason: NAUSEA OR VOMITING Pantoprazole Sodium (Protonix Inj) 40 mg IV.PUSH DAILY [facility] Last Admin: 10/10/18 08:02 Dose: 40 mg Polyethylene Glycol (Miralax) 17 gm PO DAILY [facility] Last Admin: 10/10/18 08:04 Dose: Not Given Potassium Chloride (Klor-Con 10) 20 meq PO DAILY [facility] Last Admin: 10/10/18 08:02 Dose: 20 meq Ranolazine (Ranexa) 500 mg PO Q12H [facility] Last Admin: 10/10/18 08:01 Dose: 500 mg Senna/Docusate Sodium (Jacqui-Colace) 1 tab PO BID [facility] Last Admin: 10/10/18 08:04 Dose: Not Given Sennosides (Senokot) 17.2 mg PO Q12H PRN PRN Reason: Moderate Constipation Sennosides (Senokot) 8.6 mg PO [facility] Last Admin: 10/09/18 21:10 Dose: Not Given Sertraline HCl (Zoloft) 50 mg PO DAILY [facility] Last Admin: 10/10/18 08:02 Dose: 50 mg Sodium Biphosphate/Sodium Phosphate (Fleets Enema (Adult)) 118 ml RECTAL UNSCH PRN PRN Reason: SEE LABEL COMMENTS Sodium Chloride (Ns Flush) 2 ml IV.FLUSH BID [facility] Last Admin: 10/10/18 08:02 Dose: 2 ml Sodium Chloride (Ns Flush) 2 ml IV.FLUSH PRN PRN PRN Reason: FLUSH AFTER USING IV ACCESS Temazepam (Restoril) 7.5 mg PO [facility] Last Admin: 10/09/18 21:06 Dose: 7.5 mg Throat Lozenges (Chloraseptic [place]) 2 spray OROPHARYNG Q2H PRN PRN Reason: SORE THROAT Last Admin: 10/04/18 21:15 Dose: 2 spray Allergies Allergy/AdvReac Type Severity Reaction Status Date / Time heparin Allergy Severe HEPARIN-INDUCED Verified 10/10/18 14:47 THROMBOCYTOPENIA metoprolol Allergy Severe HALLUCINATI Verified 09/23/18 22:25 ONS famotidine Allergy Unknown RASH Verified 09/23/18 22:25 lisinopril Allergy Unknown Itching Verified 09/23/18 22:25 insulin detemir AdvReac Unknown Diarrhea Verified 09/23/18 22:25 Home Medications Medication Instructions Recorded Confirmed Type aspirin [Aspir-81] 81 mg PO DAILY 08/03/18 09/24/18 History atorvastatin 20 mg PO DAILY 08/03/18 09/24/18 History insulin glargine [Lantus U-100 38 unit SUB-Q DAILY 08/03/18 10/08/18 History Insulin] insulin lispro [Humalog U-100 45 unit SUB-Q DAILY 08/03/18 09/24/18 History Insulin] methocarbamol 500 mg PO QID 08/03/18 09/24/18 History nitroglycerin 0.3 mg SUBLINGUAL Q5-15M PRN 08/03/18 09/24/18 History sertraline 50 mg PO DAILY 08/03/18 09/24/18 History temazepam 7.5 mg PO HS 08/03/18 09/24/18 History Physical Exam Vital signs: Vital Signs 10/10/18 00:00 10/10/18 01:00 10/10/18 02:00 Temperature Pulse Rate 86 85 86 Respiratory Rate Blood Pressure Pulse Oximetry 10/10/18 02:30 10/10/18 03:00 10/10/18 04:00 Temperature 98.2 F Pulse Rate 81 79 Respiratory Rate 16 16 Blood Pressure 110/73 Pulse Oximetry 95 10/10/18 05:00 10/10/18 06:00 10/10/18 07:00 Temperature 98.2 F Pulse Rate 84 79 86 Respiratory Rate 18 Blood Pressure 100/64 Pulse Oximetry 96 10/10/18 08:00 10/10/18 09:00 10/10/18 09:09 Temperature Pulse Rate 78 78 Respiratory Rate Blood Pressure Pulse Oximetry 96 96 10/10/18 10:00 10/10/18 11:00 10/10/18 12:00 Temperature 97.3 F L Pulse Rate 83 84 80 Respiratory Rate 20 Blood Pressure 92/63 L Pulse Oximetry 94 L 10/10/18 14:00 10/10/18 15:00 Temperature 98.2 F Pulse Rate 80 85 Respiratory Rate 18 Blood Pressure Pulse Oximetry 95 Intake & Output 10/10/18 10/10/18 10/11/18 06:59 18:59 06:59 Intake Total 480 / 480 Output Total 1200 / 1200 Balance -720 / -720 Weight 78.5 kg Intake: Oral 480 / 480 Output: Urine 1200 / 1200 Other: Date of Last Bowel Movement 10/09/18 10/09/18 # Bowel Movements 0 Narrative: GENERAL: NAD SKIN: Warm and dry. HEAD: Atraumatic. Normocephalic. EYES: Pupils equal and round. No scleral icterus. No injection or drainage. ENT: No nasal bleeding or discharge. Mucous membranes pink and moist. NECK: Trachea midline. No JVD. CARDIOVASCULAR: Regular rate and rhythm. Sternotomy clean/dry/intact RESPIRATORY: No accessory muscle use. Decreased breath sounds bilaterally GASTROINTESTINAL: Abdomen soft, non-tender, nondistended. Hepatic and splenic margins not palpable. MUSCULOSKELETAL: Extremities without clubbing, cyanosis, or edema. No obvious deformities. NEUROLOGICAL: Awake and alert. No obvious cranial nerve deficits. Motor grossly within normal limits. Five out of 5 muscle strength in the arms and legs. Normal speech. PSYCHIATRIC: Appropriate mood and affect; insight and judgment normal. - Urinary Catheter Management Indwelling Temp Sensing Catheter Cath placed during this visit: yes, but has since been removed by the nurse Reason for continuing: Decision to DC catheter Insertion date: 09/29/18 Insertion time: 08:30 Removal date: 10/06/18 Removal time: 14:00 Results 10/10/18 04:52 10/10/18 04:52 Cardiac Enzymes 10/10/18 Range/Units 04:52 AST 28 (15-37) U/L Coagulation 10/09/18 10/10/18 Range/Units 03:40 04:52 PT 13.3 H 13.2 H (9.8-11.6) sec CBC 10/10/18 Range/Units 04:52 WBC 9.7 (4.0-11.0) th/mm3 RBC 3.56 L (4.00-5.30) mil/mm3 Hgb 10.4 L (11.6-15.3) gm/dL Hct 30.5 L (35.0-46.0) % Plt Count 365 D (150-450) th/mm3 Neut # (Auto) 6.4 (1.8-7.7) th/mm3 Lymph # (Auto) 2.5 (1.0-4.8) th/mm3 [place] # (Auto) 0.6 (0.0-0.9) th/mm3 Eos # (Auto) 0.2 (0.0-0.4) th/mm3 Baso # (Auto) 0.0 (0.0-0.2) th/mm3 Comprehensive Metabolic Panel 10/10/18 Range/Units 04:52 Sodium 138 (136-145) meq/L Potassium 4.5 (3.5-5.1) meq/L Chloride 101 (98-107) meq/L Carbon Dioxide 28.6 (21.0-32.0) meq/L BUN 9 (7-18) mg/dL Creatinine 0.91 (0.50-1.00) mg/dL Calcium 8.1 L (8.5-10.1) mg/dL AST 28 (15-37) U/L ALT 144 H (10-53) U/L Alkaline Phosphatase 270 H (45-117) U/L Total Protein 6.4 (6.4-8.2) g/dL Albumin 2.4 L (3.4-5.0) g/dL Intake and Output 10/10/18 10/10/18 10/11/18 14:59 22:59 06:59 Other: Date of Last Bowel Movement 10/09/18 10/09/18 - Imaging and Cardiology Imaging: Impressions Liver Ultrasound 10/09/18 14:38 CONCLUSION: 1. The common bile duct appears mildly prominent at 7 mm. The pancreas is not visualized secondary to bandages overlying the patient's abdomen. There is a trace amount of free fluid identified within Morison's pouch. No definite etiology seen for the patient's pain. Consider further evaluation with contrast- enhanced CT given the presence of the free fluid. Cholangiopancreatography MRI 10/10/18 08:00 CONCLUSION: 1. No biliary dilatation. Common bile duct measures 6 mm. No stones or sludge involving the gallbladder. 2. Small bilateral pleural effusions. 3. Anasarca. Assessment and Plan - Assessment (1) Unstable angina Code(s): I20.0 - Unstable angina Status: Acute (2) CAD (coronary artery disease), [place] coronary artery Code(s): I25.10 - Atherosclerotic heart disease of [place] coronary artery without angina pectoris Status: Acute (3) Diabetes mellitus Code(s): E11.9 - Type 2 diabetes mellitus without complications Status: Chronic (4) Acute ST elevation myocardial infarction (STEMI) Code(s): I21.3 - ST elevation (STEMI) myocardial infarction of unspecified site Status: Acute - Plan 1) CABG x4 2) Jacqui-procedure STEMI Found to have extensive thrombus in both [place] vessels as well as grafts RAMEY to LAD with competitive flow, most likely will occlude Thrombus in LAD aspirated, distal LAD unable to pass wire past the anastomosis site SVG to OM1/OM2 occluded with extensive thrombus MAXWELL x 2 to [place] OM1 MAXWELL to [place] LCx POBA of [place] OM2 RCA stents patent PDA occluded where it was previously jailed Unable to find SVG to PDA [place] to be small vessel supplying very little territory ASA/Plavix 3) Intubated s/p extubation 4) Hypercoagulable state Appreciate Hematology consultation Most likely anticoagulation/antiplatelet combination on discharge HIT YARITZA positive All heparin products stopped Placed on Arixtra Discussed with Heme/Onc, patient would like to go home on Arixtra 5) Bedside HAKAN done with Dr. Enriquez EF 45%, inferolateral wall akinetic No significant valvulopathy. Bedside echo EF 40-45%, repeat 50-55% 6) Fluid overload state from 2 units PRBC Diuresed 7) LFTs trending down Concern for acalculous cholecystitis but HIDA scan showing borderline normal ejection fraction Plan MRCP today 8) Repeat echo with concern for thrombus in the apex of the RV Con't with anticoagulation 9) Plan discharge today
[2018-10-11 13:31] LABS: Smooth Muscle Total Auto Abs Negative (Negative)
== END 2018-10-10 17:35 | disposition home health service (06) ==
LOC: NEPE 21:39 → NEDA 09-24 02:25 → NEDH 09-24 08:33 → HCPC 09-24 12:50 → NEDH 09-24 12:56 → HCPC 09-27 14:21 → HCVI 09-29 14:00 → HCPC 10-06 11:50
PROVIDERS: ADMIT Thoracic Surgery (Cardiothoracic Vascular Surgery); ATTEND Thoracic Surgery (Cardiothoracic Vascular Surgery)

== ENCOUNTER 2018-10-17 08:29 | Inpatient (IN) ==
[2018-10-17] MEDS ORDERED: fentaNYL Citrate Inj 100 MCG/2 ML Ampul IV.PUSH ONE (08:46)
--- NOTE | 2018-10-17 08:56 | ED ---
HPI General Chief Complaint: Chest Pain Stated Complaint: cardiac Time Seen by Provider: 10/17/18 08:38 Source: patient Mode of arrival: EMS Limitations: no limitations History of Present Illness HPI narrative: The patient is a 58-year-old female who presents to the emergency department via EMS for chest pain. The patient has a complicated history with recent hospitalization for CABG that was performed by Dr. Campos with subsequent acute thrombosis syndrome who went back and had stents placed by her social media senior associate, Dr. Melissa. The patient was then seen later this month for chest pain, admission, and administration of her Arixtra, which she is currently injected at home by herself. The patient states she awakened at 5 AM this morning with left-sided chest pain. The chest pain is located over the lower left lateral aspect of the chest, sharp, radiates down the left upper extremity, and is associated with shortness of breath. She denies any new cough. The patient apparently had a blood pressure with a systolic in the 80s and was provided an IV fluid bolus by EMS prior to arrival as well as aspirin, however, no nitroglycerin was provided secondary to the patient's blood pressure. Symptoms are moderate to severe and progressive. There are no current alleviating factors. The patient denies any fever, chills, or sweats. MD complaint: Reports chest pain STEMI Alert: No Onset (ago): hour(s) Time: 05:00 Duration: constant Onset: during rest Pain location: Reports left chest Severity: severe Severity scale (1-10): 8 Quality: Reports sharp Pain radiation: Reports LUE Relieving factors: nothing Exacerbating factors: nothing Context: Reports recent surgery Associated symptoms: Reports dyspnea Treatments prior to arrival chest pain: Reports aspirin Related Data On Oral Contraceptives: No Home Medications Medication Instructions Recorded Confirmed aspirin [Aspir-81] 81 mg PO DAILY 08/03/18 10/17/18 atorvastatin 20 mg PO DAILY 08/03/18 10/17/18 insulin glargine [Lantus U-100 38 unit SUB-Q DAILY 08/03/18 10/17/18 Insulin] insulin lispro [Humalog U-100 30 unit SUB-Q TIDAC 08/03/18 10/17/18 Insulin] methocarbamol 500 mg PO QID 08/03/18 10/17/18 nitroglycerin 0.3 mg SUBLINGUAL Q5-15M PRN 08/03/18 10/17/18 sertraline 50 mg PO DAILY 08/03/18 10/17/18 temazepam 7.5 mg PO HS 08/03/18 10/17/18 docusate sodium [DOK] 100 mg PO BID PRN 10/17/18 10/17/18 Previous Rx's Medication Instructions Recorded ranolazine [Ranexa] 500 mg PO Q12H 90 Days #90 tab 08/03/18 clopidogrel [Plavix] 75 mg PO DAILY #30 tab 10/10/18 fondaparinux [Arixtra] 7.5 mg SUBCUT Q24H #90 ml 10/10/18 furosemide [Lasix] 40 mg PO DAILY PRN #30 tab 10/10/18 hydrocodone-acetaminophen [Wantagh] 1 tab PO Q6H PRN #30 tab 10/10/18 frfzwvep-duns-OQ-calcium-mins 1 tab PO DAILY #30 tab 10/10/18 [Thera M Plus (ferrous fumarat)] potassium chloride [Klor-Con 10] 20 meq PO DAILY #30 tab 10/10/18 Allergies Allergy/AdvReac Type Severity Reaction Status Date / Time heparin Allergy Severe HEPARIN-INDUCED Verified 10/17/18 09:15 THROMBOCYTOPENIA metoprolol Allergy Severe HALLUCINATI Verified 10/17/18 09:15 ONS famotidine Allergy Unknown RASH Verified 10/17/18 09:15 lisinopril Allergy Unknown Itching Verified 10/17/18 09:15 insulin detemir AdvReac Unknown Diarrhea Verified 10/17/18 09:15 Review of Systems ROS: all other systems reviewed are negative [facility]LY [facility], [facility] Social History Social History Substance History: No History of Abuse Second Hand Smoke Exposure: No Smoking Status: Never smoker How Often Do You Have a Drink Containing Alcohol: Never Recent Travel in [facility] within the Last 8 Weeks: No Recent Out of Country Travel within the Last 8 Weeks: No Exam Narrative Exam Narrative: GENERAL: Awake, alert, 58-year-old female appears older than her stated age and is in no acute respiratory distress. SKIN: Focused skin assessment warm/dry. HEAD: Atraumatic. Normocephalic. EYES: Pupils equal and round. No scleral icterus. No injection or drainage. ENT: No nasal bleeding or discharge. Mucous membranes pink and moist. NECK: Trachea midline. No JVD. CARDIOVASCULAR: Regular rate and rhythm. Healing midline sternal scar. Mild ecchymosis noted. Heart rate in the 90s. RESPIRATORY: No accessory muscle use. Slightly diminished breath sounds in the left base. GASTROINTESTINAL: Abdomen soft, non-tender, nondistended. MUSCULOSKELETAL: No obvious deformities. No clubbing. No cyanosis. No edema. NEUROLOGICAL: Awake and alert. No obvious cranial nerve deficits. Motor grossly within normal limits. Normal speech. PSYCHIATRIC: Appropriate mood and affect; insight and judgment normal. Procedures Ultrasound POC Ultrasound Procedure: A bedside ultrasound was performed with a cardiac probe, there is no large obvious pericardial lesion. The patient tolerated the procedure without difficulty and there were no obvious complications. Course Initial Documented Vital Signs Temperature 97.7 F 10/17/18 08:37 Pulse Rate 101 H 10/17/18 08:37 Respiratory Rate 22 10/17/18 08:37 Blood Pressure 80/50 L 10/17/18 08:37 Pulse Oximetry 93 L 10/17/18 08:37 Last Documented Vital Signs Temperature 97.7 F 10/17/18 08:37 Pulse Rate 98 H 10/17/18 09:57 Respiratory Rate 16 10/17/18 09:57 Blood Pressure 68/47 L 10/17/18 09:57 Pulse Oximetry 99 10/17/18 09:57 Critical Care Time Critical Care Time: Yes Total Critical Care Time: 40 Attestation: Aggregate critical care time was 40 minutes. Time to perform other separately billable procedures was not included in the critical care time. My time did not include minutes spent treating any other patients simultaneously or on activities that did not directly contribute to the patient's treatment. The services I provided to this patient were to treat and/or prevent clinically significant deterioration that could result in: Anoxia, hypoxia, hypotension, septic shock, acute renal failure, . I provided critical care services requiring my management, as noted below: Chart data review, documentation time, medication orders and management, vital sign assessments/reviewing monitor data, ordering and reviewing lab tests, ordering and interpreting/reviewing x-rays and diagnostic studies, care of the patient and discussion of the patient with the admitting physicians. Medical Decision Making MDM Narrative Medical decision making narrative: IV was established, labs are drawn and sent, and the patient was placed on cardiac telemetry monitoring and continuous pulse oximetry monitoring. EKG was ordered read and interpreted. Bedside ultrasound was performed with a cardiac probe, there was no obvious large pericardial effusion on ultrasound. Chest x-ray was obtained to evaluate for effusion. The patient was administered normal saline 500 cc IV fluid bolus, fentanyl 25 mics, and Zofran 4 mg intravenously for her symptoms. Chest x-ray reveals pleural effusion and probable pneumonia, therefore, the patient was treated with cefepime and Zithromax to cover for healthcare acquired pneumonia. The patient received a total of 2 L IV fluid, pressure was still in the upper 70s and lower 80s systolic, the patient will be admitted to the intensive care unit. I discussed the patient with her cardiothoracic surgeon, Dr. Campos, who is aware the patient will be admitted. A call was also placed to Dr. Melissa. A call was placed to the on-call glue drier operator for admission. I discussed the patient with Dr. Acosta who agrees with admission. Dr. Acosta does recommend CT pulmonary angiogram PE protocol as well as ABG. These have been ordered. Medical Screen Exam Complete: Yes Emergency Medical Condition: Yes Differential Diagnosis Differential Diagnosis: Differential diagnosis includes Helder syndrome, pericardial effusion, pleural effusion, acute thrombosis, STEMI, pneumonia, pulmonary embolism, postoperative pain. Lab Data Result diagrams: 10/17/18 08:45 10/17/18 08:45 Lab Results 10/17/18 10/17/18 10/17/18 Range/Units 08:45 08:45 08:45 WBC 9.1 (4.0-11.0) th/mm3 RBC 3.44 L (4.00-5.30) mil/mm3 Hgb 9.9 L (11.6-15.3) gm/dL Hct 30.1 L (35.0-46.0) % MCV 87.4 (80.0-100.0) fL MCH 28.7 (27.0-34.0) pg MCHC 32.8 (32.0-36.0) % RDW 15.2 (11.6-17.2) % Plt Count 503 H (150-450) th/mm3 MPV 7.0 (7.0-11.0) fL Neut % (Auto) 70.7 H (16.0-70.0) % Lymph % (Auto) 22.7 (9.0-44.0) % [place] % (Auto) 5.3 (0.0-8.0) % Eos % (Auto) 0.7 (0.0-4.0) % Baso % (Auto) 0.6 (0.0-2.0) % Neut # (Auto) 6.4 (1.8-7.7) th/mm3 Lymph # (Auto) 2.1 (1.0-4.8) th/mm3 [place] # (Auto) 0.5 (0.0-0.9) th/mm3 Eos # (Auto) 0.1 (0.0-0.4) th/mm3 Baso # (Auto) 0.1 (0.0-0.2) th/mm3 WBC Differential . Differential Comment Auto diff final PT 12.9 H (9.8-11.6) sec INR 1.3 Ratio APTT 25.0 (23.4-31.7) sec Sodium 133 L (136-145) meq/L Potassium 4.5 (3.5-5.1) meq/L Chloride 100 (98-107) meq/L Carbon Dioxide 21.6 (21.0-32.0) meq/L Anion Gap 11 (5-15) meq/L BUN 17 (7-18) mg/dL Creatinine 1.31 H (0.50-1.00) mg/dL Estimated GFR 51 L (>89) mL/min Random Glucose 262 H (74-106) mg/dL Lactic Acid (0.4-2.0) mmol/L Calcium 7.8 L (8.5-10.1) mg/dL Magnesium 1.7 (1.5-2.5) mg/dL Total Bilirubin 0.6 (0.2-1.0) mg/dL AST 18 (15-37) U/L ALT 42 (10-53) U/L Alkaline Phosphatase 143 H (45-117) U/L Total Creatine Kinase 56 (26-192) U/L Troponin I 0.12 H (0.02-0.05) ng/mL B-Natriuretic Peptide (0-100) pg/mL Total Protein 6.8 (6.4-8.2) g/dL Albumin 3.0 L (3.4-5.0) g/dL Lipase 275 (73-393) U/L 10/17/18 10/17/18 Range/Units 08:45 09:46 WBC (4.0-11.0) th/mm3 RBC (4.00-5.30) mil/mm3 Hgb (11.6-15.3) gm/dL Hct (35.0-46.0) % MCV (80.0-100.0) fL MCH (27.0-34.0) pg MCHC (32.0-36.0) % RDW (11.6-17.2) % Plt Count (150-450) th/mm3 MPV (7.0-11.0) fL Neut % (Auto) (16.0-70.0) % Lymph % (Auto) (9.0-44.0) % [place] % (Auto) (0.0-8.0) % Eos % (Auto) (0.0-4.0) % Baso % (Auto) (0.0-2.0) % Neut # (Auto) (1.8-7.7) th/mm3 Lymph # (Auto) (1.0-4.8) th/mm3 [place] # (Auto) (0.0-0.9) th/mm3 Eos # (Auto) (0.0-0.4) th/mm3 Baso # (Auto) (0.0-0.2) th/mm3 WBC Differential Differential Comment PT (9.8-11.6) sec INR Ratio APTT (23.4-31.7) sec Sodium (136-145) meq/L Potassium (3.5-5.1) meq/L Chloride (98-107) meq/L Carbon Dioxide (21.0-32.0) meq/L Anion Gap (5-15) meq/L BUN (7-18) mg/dL Creatinine (0.50-1.00) mg/dL Estimated GFR (>89) mL/min Random Glucose (74-106) mg/dL Lactic Acid 2.1 H (0.4-2.0) mmol/L Calcium (8.5-10.1) mg/dL Magnesium (1.5-2.5) mg/dL Total Bilirubin (0.2-1.0) mg/dL AST (15-37) U/L ALT (10-53) U/L Alkaline Phosphatase (45-117) U/L Total Creatine Kinase (26-192) U/L Troponin I (0.02-0.05) ng/mL B-Natriuretic Peptide 326 H (0-100) pg/mL Total Protein (6.4-8.2) g/dL Albumin (3.4-5.0) g/dL Lipase (73-393) U/L Imaging Data Radiologist's impression: Chest X-Ray 10/17/18 08:46 CONCLUSION: Extensive left lung pleural-parenchymal opacity. ECG Data EKG Prior to Arrival: No Attestation: I personally reviewed and interpreted this ECG as follows: Interpretation: EKG reveals normal sinus rhythm with a rate of 93 Q waves noted in lead II, III, and aVF. Inverted T waves noted in lead V3 through V6 as well as 1 and aVL. Discharge Plan Physicians Team ED Provider: Alan Singletary Primary Care Provider: Emerald Hahn Rxs /Orders / Referrals /Forms Prescriptions: No Action methocarbamol 500 mg Tablet 500 mg PO QID RF: 0 atorvastatin 20 mg Tablet 20 mg PO DAILY RF: 0 insulin glargine [Lantus U-100 Insulin] 100 unit/mL Solution 38 unit SUB-Q DAILY RF: 0 nitroglycerin 0.3 mg Tablet, Sublingual 0.3 mg SUBLINGUAL Q5-15M PRN (Reason: Chest Pain) RF: 0 aspirin [Aspir-81] 81 mg Tablet,Delayed Release (Dr/Ec) 81 mg PO DAILY RF: 0 temazepam 7.5 mg Capsule 7.5 mg PO HS RF: 0 sertraline 50 mg Tablet 50 mg PO DAILY RF: 0 insulin lispro [Humalog U-100 Insulin] 100 unit/mL Cartridge 30 unit SUB-Q TIDAC RF: 0 ranolazine [Ranexa] 500 mg Tablet Extended Release 12 Hr 500 mg PO Q12H 90 Days Qty: 90 RF: 3 potassium chloride [Klor-Con 10] 10 mEq Tablet Extended Release 20 meq PO DAILY Qty: 30 RF: 0 clopidogrel [Plavix] 75 mg Tablet 75 mg PO DAILY Qty: 30 RF: 2 fondaparinux [Arixtra] 7.5 mg/0.6 mL Syringe 7.5 mg subcut Q24H Qty: 90 RF: 0 oldpmklj-fpzw-SQ-calcium-mins [Thera M Plus (ferrous fumarat)] 9 mg iron-400 mcg Tablet 1 tab PO DAILY Qty: 30 RF: 2 furosemide [Lasix] 20 mg Tablet 40 mg PO DAILY PRN (Reason: edema) Qty: 30 RF: 0 hydrocodone-acetaminophen [Wantagh] 5-325 mg Tablet 1 tab PO Q6H PRN (Reason: Acute Pain) Qty: 30 RF: 0 docusate sodium [DOK] 100 mg capsule 100 mg PO BID PRN (Reason: Constipation) RF: 0 Discharge Interventions Interventions: Vital Signs Last Done: 10/17/18 09:57 Status ED Status: Admitted Patient
[2018-10-17] MEDS ORDERED: Sodium Chlor 0.9% Inj 500 ML IV.SIG SCH ×2 (09:00→11:00)
[2018-10-17 09:16] LABS: Baso # (Auto) 0.1 th/mm3 (0.0-0.2); Baso % (Auto) 0.6 % (0.0-2.0); Eos # (Auto) 0.1 th/mm3 (0.0-0.4); Eos % (Auto) 0.7 % (0.0-4.0); Hematocrit 30.1 % (35.0-46.0); Hemoglobin 9.9 gm/dL (11.6-15.3); Lymph # (Auto) 2.1 th/mm3 (1.0-4.8); Lymph % (Auto) 22.7 % (9.0-44.0); Mean Corpuscular HGB Conc 32.8 % (32.0-36.0); Mean Corpuscular Hemoglobin 28.7 pg (27.0-34.0); Mean Corpuscular Volume 87.4 fL (80.0-100.0); Mono # (Auto) 0.5 th/mm3 (0.0-0.9); Mono % (Auto) 5.3 % (0.0-8.0); Neut # (Auto) 6.4 th/mm3 (1.8-7.7); Neut % (Auto) 70.7 % (16.0-70.0); Platelet Count 503 th/mm3 (150-450); Red Blood Count 3.44 mil/mm3 (4.00-5.30); Red Cell Distribution Width 15.2 % (11.6-17.2); White Blood Count 9.1 th/mm3 (4.0-11.0)
[2018-10-17] MEDS ORDERED: Azithromycin Inj 500 MG in Sodium Chlor 0.9% Inj 250 ML IV.SIG ONE (09:24)
--- NOTE | 2018-10-17 09:25 | XR ---
EXAM DATE: 10/17/2018 9:20 AM EST AGE/SEX: 58 years / Female INDICATIONS: Chest pains with shortness of breath. CLINICAL DATA: This is the patient's initial encounter. Patient reports that signs and symptoms have been present for 1 day and indicates a pain score of 10/10. MEDICAL/SURGICAL HISTORY: Cardiovascular disease. CABG. COMPARISON: [facility] – [place], CHEST 1V SINGLE AP, 10/06/2018. . FINDINGS: There is extensive left lung consolidation and effusion. Mild probable atelectasis in the medial righ t lower lung. Heart size is grossly normal. CONCLUSION: Extensive left lung pleural-parenchymal opacity. Electronically signed by: Dave Garrett MD 10/17/2018 9:24 AM EST
[2018-10-17 09:27] LABS: INR 1.3 Ratio; Prothrombin Time 12.9 sec (9.8-11.6)
[2018-10-17 09:41] LABS: Alanine Aminotransferase 42 U/L (10-53); Anion Gap 11 meq/L (5-15); Aspartate Aminotransferase 18 U/L (15-37); Blood Urea Nitrogen 17 mg/dL (7-18); Calcium 7.8 mg/dL (8.5-10.1); Carbon Dioxide 21.6 meq/L (21.0-32.0); Chloride 100 meq/L (98-107); Glomerular Filtration Rate 51 mL/min (>89); Glucose,Random 262 mg/dL (74-106); Lipase 275 U/L (73-393); Magnesium 1.7 mg/dL (1.5-2.5); Potassium 4.5 meq/L (3.5-5.1); Sodium 133 meq/L (136-145)
[2018-10-17 09:45] LABS: Alkaline Phosphatase 143 U/L (45-117); Total Protein 6.8 g/dL (6.4-8.2); Troponin I 0.12 ng/mL (0.02-0.05)
[2018-10-17 09:52] LABS: Creatine Kinase 56 U/L (26-192)
[2018-10-17] MEDS ORDERED: Bisacodyl 10 MG Supp RECTAL PRN (10:42)
[2018-10-17 11:06] LABS: ABG Base Excess -4.8 mmol/L (-2-2); ABG PCO2 23 mmHg (38-42); ABG PO2 111 mmHg (61-120)
[2018-10-17] MEDS ORDERED: Sod Chloride 0.9% Inj 1,000 ML IV.SIG SCH (11:15)
--- NOTE | 2018-10-17 12:21 | CT ---
EXAM DATE: 10/17/2018 12:13 PM EST AGE/SEX: 58 years / Female INDICATIONS: Left sided chest pain. CABG 3 weeks ago CLINICAL DATA: This is the patient's initial encounter. Patient reports that signs and symptoms have been present for 4 - 6 days and indicates a pain score of 6/10. MEDICAL/SURGICAL HISTORY: Diabetes. Cardiovascular disease. CABG. Hysterectomy. RADIATION DOSE: 10.47 CTDI (mGy) COMPARISON: [facility], CHEST 1V SINGLE AP, 10/05/2018. . TECHNIQUE: Volumetric scanning was performed using a multi-row detector CT scanner during bolus infu gemma of 73 ml Omnipaque 350 (iohexol) nonionic water-soluble contrast as a single exam dose. The serena a was post processed with a variety of visualization algorithms including full volume maximum intensi ty projection and sliding thin slab reformation. Using automated exposure control and adjustment of the mA and/or kV according to patient size, radiation dose was kept as low as reasonably achievable t o obtain optimal diagnostic quality images. DICOM format image data is available electronically for review and comparison. FINDINGS: There is evidence of pulmonary embolism with filling defect most clearly seen in right lower lobe seg mental and subsegmental branches. There is mild atelectasis in the posterior right lung base. There is extensive consolidative change i n the left perihilar region and at the left lung base, however the majority of left chest opacity rel ates to mixed density loculated and nonloculated pleural fluid and/or thickening. CONCLUSION: 1. Study is positive for pulmonary embolism 2. Extensive complex pleural fluid and thickening on the left 3. Bilateral consolidative changes, fairly extensive on the left, mild on the right Electronically signed by: Dave Garrett MD 10/17/2018 12:19 PM EST
[2018-10-17] MEDS: Piperacil/Tazo 4.5 GM Premix 4.5 GM/100 ML BAG IV.SIG SCH ×3 (13:07→23:46)
[2018-10-17] MEDS ORDERED: Argatroban Inj 250 MG in Sodium Chlor 0.9% Inj 247.5 ML IV.CONT PRN (14:00)
[2018-10-17] MEDS ORDERED: Vancomycin Inj 1,000 MG in Sodium Chlor 0.9% Inj 250 ML IV.SIG ONE (14:00)
[2018-10-17] MEDS ORDERED: Morphine Inj 4 MG/ML Vial ONE (14:00)
[2018-10-17 14:09] LABS: Troponin I 0.1 ng/mL (0.02-0.05)
[2018-10-17] MEDS ORDERED: Morphine Inj 4 MG/ML Vial IV.PUSH ONE (14:15)
[2018-10-17] MEDS: Sod Chloride 0.9% Inj 1,000 ML IV.CONT SCH (14:20)
--- NOTE | 2018-10-17 15:11 | XR ---
EXAM DATE: 10/17/2018 3:08 PM EST AGE/SEX: 58 years / Female INDICATIONS: Central line placement. CLINICAL DATA: This is the patient's initial encounter. Patient reports that signs and symptoms have been present for 1 day and indicates a pain score of Nonresponsive. MEDICAL/SURGICAL HISTORY: Cerebrovascular disease. CABG. COMPARISON: [facility], CHEST 1V SINGLE AP, 10/17/2018. . FINDINGS: The examination demonstrates a large left-sided pleural effusion and consolidation of the left lung. There are mild atelectatic changes in the right lung. There is a new left jugular central venous catheter tip overlies the SVC. No pneumothorax is seen. Th e visualized bony structures are intact. CONCLUSION: Left effusion and consolidation stable compared to previous. Left jugular central line in satisfactory position. No pneumothorax. Electronically signed by: Colton Carolina MD 10/17/2018 3:10 PM EST
--- NOTE | 2018-10-17 15:50 | P.PCN ---
Date of procedure: 10/17/18 Pre-op diagnosis: Septic shock Post-op diagnosis: same Procedure: US guided left IJ central line Central line checklist completed, timeout completed. I wore a surgical cap, mask with protective eyewear, full gown and sterile gloves throughout the procedure. Left neck region was prepped using chlorhexidine scrub and draped in sterile fashion. The left IJ was identified using the ultrasound. Anesthesia was achieved over the vein using 1% lidocaine. The introducer needle was inserted into the left internal jugular vein under direct ultrasound visualization. Venous blood was withdrawn. The syringe was removed and a guidewire was advanced into the introducer needle. A small incision was made at the skin surface with a scalpel and the introducer needle was exchanged for a dilator over the guidewire. After appropriate dilation was obtained, the dilator was exchanged over the wire for a triple lumen, 7F, antibiotic coated central venous catheter. The wire was removed and the catheter was secured at 19 cm with StatLock. A sterile central line dressing was placed over the catheter at the insertion site. The patient tolerated the procedure without any hemodynamic compromise. At time of procedure completion, all ports aspirated and flushed properly. Post-procedure chest x-ray is pending at this time. Anesthesia: local Surgeon: Bladimir Acosta Estimated blood loss (mL): 2 Pathology: none sent Condition: critical Disposition: ICU
--- NOTE | 2018-10-17 15:54 | P.HPCC ---
History of Present Illness Service: Critical care medicine Primary Care Physician: Emerald Hahn MD Chief Complaint: Shortness of breath hypotension History of Present Illness: Patient is a 58-year-old female with history of coronary artery disease, type 2 diabetes, who underwent off-pump CABG x 4 09/29/[address] Campos. Intraoperatively she had significant ST elevations, emergently taken to [facility] by by Dr. Melissa, found to have completely occluded grafts. Patient underwent MAXWELL to OM1, LAD. balloon angiopasty to OM2. Patient had a complicated course and was diagnosed with heparin-induced thrombocytopenia. A follow-up echo on 10/03/2018 showed EF 50-55%. Patient was eventually discharged on 10/10/2018 with a prescription for Arixtra however next day she had to be admitted for 1 day for as pharmacy did not have Arixtra. Arixtra was arranged and patient was discharged again on 10/11/2018. Today she presented to the emergency department for chest pain and shortness of breath. For systolic blood pressure in the 80s patient received IV fluid bolus by EMS. Chest x-ray showed extensive left-sided infiltrate/effusion. Presuming pneumonia and septic shock, patient received cefepime and azithromycin in the ED. Lactic acid was 2.1. Critical care was contacted for admission as after 2 L fluid boluses patient remained hypotensive I discussed with Dr. Kearns, recommended additional 1 more liter fluid bolus, and start Levophed if patient remains hypotensive. I also recommended stat CT Chest PE protocol. This showed pulmonary embolism in right lower lobe segmental and subsegmental branches. Also there was extensive consolidative change in the left perihilar region, left lung base, and also large mixed density loculated and nonloculated pleural fluid with associated pleural thickening. I have discussed the case with Dr. Campos cardiothoracic surgery, Dr. Melissa, cardiology and Dr. Curry hematology oncology. Patient will be admitted to ICU and I will discontinue Arixtra and start on Argatroban IV. I evaluated the patient in the ICU. She appears to be in moderate distress hypotensive currently on 5 mcg/min of Levophed. She had received total 3 L normal saline boluses. I will place her on Argatroban as above. A stat 2D echo prelim did not reveal any evidence of RV dysfunction. Hypotension is secondary to his severe sepsis and septic shock not related to PE. No indication for TPA. Pancultured continue broad-spectrum antibiotic with Zosyn, Zyvox and azithromycin. Because of the loculation and pleural thickening involving the effusion, once clinically more stable patient may need decortication procedure - Diagnosis (1) Septic shock (2) HCAP (healthcare-associated pneumonia) (3) Acute pulmonary embolism (4) Pleural effusion (5) CAD (coronary artery disease), eagle coronary artery (6) Diabetes mellitus (7) S/P coronary artery bypass graft x 4 (8) Heparin induced thrombocytopenia (HIT) Inpatient Certification: I certify that the inpatient services were ordered in accordance with Medicare regulations governing the order. This includes certification that hospital inpatient services are reasonable and necessary and in the case of services not specified as inpatient-only under 42 CFR 419.22(n), that they are appropriately provided as inpatient services in accordance to with the 2-midnight benchmark under 43 CFR 412.3(e) Estimated Total Length of Stay (Days): 7 Plans for Post Hospital Care: Not yet determined Review of Systems All other systems reviewed negative except as stated in HPI PMFSH - History History Provided By: Patient - Medical History Medical History: Medical History (Last Reviewed 10/17/18 @ 16:48 by Bladimir Acosta MD) Chest pain Heparin induced thrombocytopenia Chronic renal insufficiency, stage II (mild) Coronary artery disease Diabetes mellitus History of hysterectomy MDRO (multiple drug resistant organisms) resistance Onset Date: ~09/25/18 Myocardial infarction - Surgical History Surgical History: Surgical History (Last Reviewed 10/17/18 @ 16:48 by Bladimir Acosta MD) History of open heart surgery S/P right rotator cuff repair - Family History Family History: Family History (Last Reviewed 10/17/18 @ 16:48 by Bladimir Acosta MD) Other Family history non-contributory - Tobacco History Second Hand Smoke Exposure: No Tobacco Use In Past 30 Days: No Smoking Status: Never smoker - Alcohol History How Often Do You Have a Drink Containing Alcohol: Never - Substance Use History Substance History: No History of Abuse - Travel History Recent Travel in the [place] Within the Last 8 Weeks: No Recent Travel Out of the Country Within the Last 8 Weeks: No - Immunization History Tetanus Immunization: Unsure Medications and Allergies Active Medications: Active Medications Hydrocodone Bitart/Acetaminophen ([place] 5/325) 1 tab PO Q6H PRN PRN Reason: PAIN 1-10 Al Hydroxide/Mg Hydroxide (Milk Of Magnesia Liq) 30 ml PO Q12H PRN PRN Reason: Mild Constipation Albuterol (Albuterol Neb (Prn)) 2.5 mg NEB Q2HR NEB PRN PRN Reason: SHORTNESS OF BREATH/WHEEZING Albuterol (Duoneb Neb (Estelle)) 1 ampul NEB Q4HR NEB ESTELLE Last Admin: 10/17/18 14:50 Dose: 1 ampul Aspirin (Ecotrin) 81 mg PO DAILY ESTELLE Bisacodyl (Dulcolax Supp) 10 mg RECTAL DAILY PRN PRN Reason: SEVERE CONSITIPATION Chlorhexidine Gluconate (Chlorhexidine 2% Cloth) 3 pack TOPICAL DAILY@0400 ESTELLE Stop: 10/23/18 03:59 Chlorhexidine Gluconate (Chlorhexidine 2% Cloth) 3 pack TOPICAL DAILY@0400 PRN PRN Reason: Extra cloth needed Stop: 10/23/18 03:59 Clopidogrel Bisulfate (Plavix) 75 mg PO DAILY ESTELLE Furosemide (Lasix) 40 mg PO DAILY PRN PRN Reason: SEE LABEL COMMENTS Sodium Chloride (Ns Inj) 1,000 mls @ 84 mls/hr IV.CONT .[id number] [facility] Last Admin: 10/17/18 14:20 Dose: 84 mls/hr Piperacillin/Tazobactam/Dextrose (Zosyn 4.5 Gm Premix) 4.5 gm in 100 mls @ 200 mls/hr IV.SIG Q6H [facility] Last Infusion: 10/17/18 13:37 Dose: Infused Norepinephrine Bitartrate 8 mg (/ Dextrose) 250 mls @ 3.75 mls/hr IV.CONT TITRATE PRN; Protocol PRN Reason: See Protocol Last Titration: 10/17/18 12:15 Dose: 4 mcg/min, 7.5 mls/hr Argatroban 250 mg/ Sodium (Chloride) 250 mls @ 0 mls/hr IV.CONT TITRATE PRN; Protocol PRN Reason: Per Protocol Last Admin: 10/17/18 15:18 Dose: 2 mcg/kg/min, 8.38 mls/hr Azithromycin 500 mg/ Sodium (Chloride) 250 mls @ 250 mls/hr IV.SIG Q24H ESTELLE Lactulose (Lactulose Liq) 30 ml PO DAILY PRN PRN Reason: SEVERE CONSITIPATION Pantoprazole Sodium (Protonix Inj) 40 mg IV.PUSH DAILY [facility] Ranolazine (Ranexa) 500 mg PO Q12H ESTEL[facility] Senna/Docusate Sodium (Jacqui-Colace) 1 tab PO BID ESTELLE Sennosides (Senokot) 17.2 mg PO Q12H PRN PRN Reason: Moderate Constipation Sertraline HCl (Zoloft) 50 mg PO DAILY [facility] Sodium Chloride (Ns Flush) 2 ml IV.FLUSH BID ESTELLE Sodium Chloride (Ns Flush) 2 ml IV.FLUSH PRN PRN PRN Reason: FLUSH AFTER USING IV ACCESS Temazepam (Restoril) 7.5 mg PO HS [facility] Terbutaline Sulfate (Brethine Inj) 1 mg SQ UNSCH PRN PRN Reason: For Extravasation Allergies Allergy/AdvReac Type Severity Reaction Status Date / Time heparin Allergy Severe HEPARIN-INDUCED Verified 10/17/18 09:15 THROMBOCYTOPENIA metoprolol Allergy Severe HALLUCINATI Verified 10/17/18 09:15 ONS famotidine Allergy Unknown RASH Verified 10/17/18 09:15 lisinopril Allergy Unknown Itching Verified 10/17/18 09:15 insulin detemir AdvReac Unknown Diarrhea Verified 10/17/18 09:15 Home Medications Medication Instructions Recorded Confirmed Type aspirin [Aspir-81] 81 mg PO DAILY 08/03/18 10/17/18 History atorvastatin 20 mg PO DAILY 08/03/18 10/17/18 History insulin glargine [Lantus U-100 38 unit SUB-Q DAILY 08/03/18 10/17/18 History Insulin] insulin lispro [Humalog U-100 30 unit SUB-Q TIDAC 08/03/18 10/17/18 History Insulin] methocarbamol 500 mg PO QID 08/03/18 10/17/18 History nitroglycerin 0.3 mg SUBLINGUAL Q5-15M PRN 08/03/18 10/17/18 History sertraline 50 mg PO DAILY 08/03/18 10/17/18 History temazepam 7.5 mg PO HS 08/03/18 10/17/18 History docusate sodium [DOK] 100 mg PO BID PRN 10/17/18 10/17/18 History Results - Labs CBC & Chem 7: 10/17/18 08:45 10/17/18 08:45 Labs: Short CBC 10/17/18 Range/Units 08:45 WBC 9.1 (4.0-11.0) th/mm3 Hgb 9.9 L (11.6-15.3) gm/dL Hct 30.1 L (35.0-46.0) % Plt Count 503 H (150-450) th/mm3 BMP 10/17/18 08:45 Sodium 133 L Potassium 4.5 Chloride 100 Carbon Dioxide 21.6 BUN 17 Creatinine 1.31 H Calcium 7.8 L Cardiac Enzymes 10/17/18 10/17/18 Range/Units 08:45 13:21 Total Creatine Kinase 56 69 (26-192) U/L Troponin I 0.12 H 0.10 H (0.02-0.05) ng/mL Liver Function 10/17/18 Range/Units 08:45 Total Bilirubin 0.6 (0.2-1.0) mg/dL AST 18 (15-37) U/L ALT 42 (10-53) U/L Alkaline Phosphatase 143 H (45-117) U/L Albumin 3.0 L (3.4-5.0) g/dL - Imaging Impressions Chest X-Ray 10/17/18 08:46 CONCLUSION: Extensive left lung pleural-parenchymal opacity. Chest CTA 10/17/18 10:41 CONCLUSION: 1. Study is positive for pulmonary embolism 2. Extensive complex pleural fluid and thickening on the left 3. Bilateral consolidative changes, fairly extensive on the left, mild on the right Chest X-Ray 10/17/18 14:47 CONCLUSION: Left effusion and consolidation stable compared to previous. Left jugular central line in satisfactory position. No pneumothorax. Exam Vital signs: Vital Signs 10/17/18 08:37 10/17/18 08:46 10/17/18 09:07 Temperature 97.7 F Pulse Rate 97 H 94 H Respiratory Rate 18 16 Blood Pressure 81/58 L 66/38 L Pulse Oximetry 99 99 95 10/17/18 09:10 10/17/18 09:22 10/17/18 09:42 Temperature Pulse Rate 93 H 91 H 98 H Respiratory Rate 22 20 15 Blood Pressure 71/51 L 73/51 L 71/53 L Pulse Oximetry 99 98 99 10/17/18 09:57 10/17/18 10:27 10/17/18 10:42 Temperature Pulse Rate 98 H 102 H 102 H Respiratory Rate 16 22 21 Blood Pressure 68/47 L 72/54 L 73/52 L Pulse Oximetry 99 99 10/17/18 10:57 10/17/18 11:00 10/17/18 11:05 Temperature Pulse Rate 107 H Respiratory Rate 15 Blood Pressure 77/51 L 96/51 L Pulse Oximetry 100 98 10/17/18 11:12 10/17/18 12:30 10/17/18 12:54 Temperature 98.6 F Pulse Rate 108 H 107 H 107 H Respiratory Rate 25 H 22 16 Blood Pressure 62/46 L 104/68 Pulse Oximetry 99 93 L 10/17/18 13:00 10/17/18 13:45 10/17/18 13:52 Temperature Pulse Rate 108 H 137 H Respiratory Rate 24 18 40 H Blood Pressure 105/59 L Pulse Oximetry 99 99 10/17/18 14:00 10/17/18 14:52 10/17/18 15:00 Temperature Pulse Rate 103 H 104 H 103 H Respiratory Rate 28 H 16 15 Blood Pressure 138/90 112/71 Pulse Oximetry 100 100 Intake & Output 10/16/18 10/17/18 10/17/18 18:59 06:59 18:59 Intake Total 1200 / 1200 Balance 1200 / 1200 Weight 69.853 kg Intake: IV 1200 / 1200 Maxipime Inj 2,000 MG In NS Inj 100 / 100 100 ML @ 200 mls/hr IV.SIG ONCE ONE Rx#:[id number] Zosyn 4.5 GM Premix 4.5 gm In 100 / 100 100 ml @ 200 mls/hr IV.SIG Q6H ESTELLE Rx#:[id number] NS Inj 500 ML @ 1000 mls/hr IV. 1000 / 1000 SIG BOLUS ESTELLE Rx#:[id number] Narrative: GENERAL: 58-year-old female lying in ICU bed in moderate distress, hypotensive on Levophed SKIN: Focused skin assessment warm/dry. HEAD: Atraumatic. Normocephalic. EYES: Pupils equal and round. No scleral icterus. No injection or drainage. ENT: No nasal bleeding or discharge. Oral cavity dry NECK: Trachea midline. No JVD. CARDIOVASCULAR: midline CABG scar appears to be healing well. Heart sounds are distant no murmurs. Hypotensive currently on 5 mcg/min of Levophed RESPIRATORY: No accessory muscle use. Significantly diminished breath sounds on left with few basilar crackles GASTROINTESTINAL: Abdomen soft, non-tender, nondistended. MUSCULOSKELETAL: No obvious deformities. No clubbing. No cyanosis. No edema. NEUROLOGICAL: Awake and alert. No obvious cranial nerve deficits. Motor grossly within normal limits. Appears anxious Septic Shock Reassessment Septic shock perfusion: reassessment completed Caprini VTE Risk Assessment Caprini VTE Risk Assessment: Moderate/High Risk (score >= 2) Caprini Risk Assessment Model: Point Value = 1 Point Value = 2 Point Value = 3 Point Value = 5 Age 41-60 Minor surgery BMI > 25 kg/m2 Swollen legs Varicose veins or History of unexplained or recurrent spontaneous Oral contraceptives or hormone replacement Sepsis (< 1 month) Serious lung disease, including pneumonia (< 1 month) Abnormal pulmonary function Acute myocardial infarction Congestive heart failure (< 1 month) History of inflammatory bowel disease Medical patient at bed rest Age 61-74 Arthroscopic surgery Major open surgery (> 45 min) Laparoscopic surgery (> 45 min) Malignancy Confined to bed (> 72 hours) Immobilizing plaster cast Central venous access Age >= 75 History of VTE Family history of VTE Factor V Leiden Prothrombin [id number] Lupus anticoagulant Anticardiolipin antibodies Elevated serum homocysteine Heparin-induced thrombocytopenia Other congenital or acquired thrombophilia Stroke (< 1 month) Elective arthroplasty Hip, pelvis, or leg fracture Acute spinal cord injury (< 1 month) Prophylaxis Regimen: Total Risk Factor Score Risk Level Prophylaxis Regimen 0-1 Low Early ambulation 2 Moderate Order ONE of the following: *Sequential Compression Device (SCD) *Heparin 5000 units SQ BID 3-4 Higher Order ONE of the following medications: *Heparin 5000 units SQ TID *Enoxaparin/Lovenox 40 mg SQ daily (WT < 150 kg, CrCl > 30 mL/min) *Enoxaparin/Lovenox 30 mg SQ daily (WT < 150 kg, CrCl > 10-29 mL/min) *Enoxaparin/Lovenox 30 mg SQ BID (WT < 150 kg, CrCl > 30 mL/min) AND/OR *Sequential Compression Device (SCD) 5 or more Highest Order ONE of the following medications: *Heparin 5000 units SQ TID (Preferred with Epidurals) *Enoxaparin/Lovenox 40 mg SQ daily (WT < 150 kg, CrCl > 30 mL/min) *Enoxaparin/Lovenox 30 mg SQ daily (WT < 150 kg, CrCl > 10-29 mL/min) *Enoxaparin/Lovenox 30 mg SQ BID (WT < 150 kg, CrCl > 30 mL/min) AND *Sequential Compression Device (SCD) Assessment and Plan - Problem List (1) Septic shock Code(s): A41.9 - Sepsis, unspecified organism; R65.21 - Severe sepsis with septic shock Status: Acute (2) HCAP (healthcare-associated pneumonia) Code(s): J18.9 - Pneumonia, unspecified organism Status: Acute (3) Acute pulmonary embolism Code(s): I26.99 - Other pulmonary embolism without acute cor pulmonale Status : Acute (4) Pleural effusion Code(s): J90 - Pleural effusion, not elsewhere classified Status: Acute (5) CAD (coronary artery disease), eagle coronary artery Code(s): I25.10 - Atherosclerotic heart disease of eagle coronary artery without angina pectoris Status: Chronic (6) Diabetes mellitus Code(s): E11.9 - Type 2 diabetes mellitus without complications Status: Chronic (7) S/P coronary artery bypass graft x 4 Code(s): Z95.1 - Presence of aortocoronary bypass graft Status: Chronic (8) Heparin induced thrombocytopenia (HIT) Code(s): D75.82 - Heparin induced thrombocytopenia (HIT) Status: Chronic - Assessment and Plan Plan: Plan: Neuro/psych: History of depression -Continue home medication sertraline 50 mg daily Resp: Right lower lobe pulmonary embolism Left-sided healthcare associated pneumonia Complex loculated left pleural effusion -Hold Arixtra, start Argatroban IV infusion per protocol -Currently on nasal cannula to keep oxygen saturation above 90%. -Hypotension most likely due to sepsis, no indication for TPA at this time -Bronchodilators with albuterol/ipratropium aerosols every 6 hours PRN -Hob elevated. BiPAP if needed -Broad-spectrum antibiotics as below -Dr. Campos to evaluate the complex loculated appearing left pleural effusion which possibly is parapneumonic -May need OR decortication, once clinically more stable CV: Septic shock Lactic acidosis s/p off-pump CABG x 4 09/29 Immediate post-op STEMI Post-op Graft thrombosis -Use Levophed to keep map above 65 -Status post normal saline 3 L bolus, continue normal saline at 84 mL/h -Continue home aspirin Plavix -At home on Arixtra 7.5 mg subcu daily. Changed to Argatroban gtt today -Continue statins. No beta-maryoj secondary to hypotension -Echo 10/03 EF 50-55%, repeat echo today to rule out significant RV dysfunction -Hold home diuretic due to hypotension -Previously on 09/29/2018, patient had a CABG x4 followed by hyper acute graft occlusion. She was taken emergently to the dental lab technician by Dr. Melissa where she - had completely occluded grafts. Patient underwent MAXWELL to OM1, LAD. balloon angioplasty to OM2. -Echo preliminary does not show any evidence of RV dysfunction. No indication for TPA Renal: Acute kidney insufficiency -Monitor renal function, I/O's, electrolytes replacement per protocol. -Holding Lasix due to hypotension -Previous renal ultrasound indicated medical renal disease. FEN/GI: -N.p.o., IV Protonix -Previous transaminitis has resolved Heme/ID: Acute pulmonary embolism while on Arixtra Acute graft thrombosis Normocytic anemia -Discussed with pharmacy order entry technician Dr. Curry -Discontinue Arixtra start Argatroban IV per protocol -Previously HIT positive ID: Septic shock Healthcare associated left-sided pneumonia with complex effusion -Broad-spectrum antibiotics with Zyvox, Zosyn and azithromycin -Sputum blood and urine culture -Dr. Campos to review CT chest -Argatroban can be held in case patient needs chest tube placement or OR decortication -Currently with pulmonary embolism, treatment with anticoagulation takes precedence Endo: Type 2 diabetes -SSI with accuchecks while n.p.o. -Hold long-acting insulin Prophylaxis: -Argatroban drip as above -Pantoprazole Lines: -Left IJ central line placed Patient is critically ill with hypotension and septic shock healthcare associated pneumonia with complicated effusion. Her condition is complicated with a acute pulmonary embolism and a complex left pleural effusion. Prognosis is guarded at this time and multiple consultants involved CCT 85 MIN excluding procedures Code Status: Full Discussed Condition With: Drs. Campos, Shin, Patricio H&P: Quality - VTE Deep Vein Thrombosis/Pulmonary Embolism Present on Admission: No
[2018-10-17] MEDS ORDERED: Dextrose 50% in Water 50 ML Vial IV.PUSH PRN (16:20)
--- NOTE | 2018-10-17 17:58 | ECHRPT ---
Indication: SHORTNESS OF BREATH, PULMONARY EMBOLI CONCLUSIONS The left ventricular systolic function is low normal with an estimated ejection fraction in the rang e of 50- 55%. Doppler parameters are consistent with impaired left ventricular relaxtion (grade 1 diastolic dysfun ction). The right ventricular systoilc function is moderately decreased. Unable to determine if there is still possible thrombus at the RV apex (compared to previous echo). There is trace tricuspid valve regurgitation. Small apical locuated pericardial effusion, no signs of tamponade. Left pleural effusion. BP: / HR: Rhythm: Sinus MEASUREMENTS (Male / Female) Normal Values Technical Quality:Fair 2D ECHO LV Diastolic Diameter PLAX 3.8 cm 4.2 - 5.9 / 3.9 - 5.3 cm LV Systolic Diameter PLAX 2.9 cm IVS Diastolic Thickness 0.9 cm 0.6 - 1.0 / 0.6 - 0.9 cm LVPW Diastolic Thickness 0.9 cm 0.6 - 1.0 / 0.6 - 0.9 cm LV Relative Wall Thickness 0.5 RV Internal Dim ED PLAX 2.0 cm LVOT Diameter 1.8 cm Aortic Root Diameter 2.4 cm LA Systolic Diameter LX 2.5 cm 3.0 - 4.0 / 2.7 - 3.8 cm DOPPLER AV Peak Velocity 99.3 cm/s AV Peak Gradient 4.0 mmHg AV Mean Gradient 2.0 mmHg AV Velocity Time Integral 14.1 cm LVOT Peak Velocity 82.8 cm/s LVOT Peak Gradient 2.9 mmHg LVOT Velocity Time Integral 10.9 cm AV Area Cont Eq vti 2.0 cm AV Area Cont Eq pk 2.1 cm Mitral E Point Velocity 64.4 cm/s Mitral A Point Velocity 84.8 cm/s Mitral E to A Ratio 0.8 LV E' Lateral Velocity 6.1 cm/s Mitral E to LV E' Lateral Ratio 10.5 LV E' Septal Velocity 5.7 cm/s Mitral E to LV E' Septal Ratio 11.4 TR Peak Velocity 231.0 cm/s TR Peak Gradient 21.1 mmHg Right Atrial Pressure 10.0 mmHg Pulmonary Artery Systolic Pressu 31.3 mmHg Right Ventricular Systolic Press 31.3 mmHg PV Peak Velocity 57.9 cm/s PV Peak Gradient 1.1 mmHg FINDINGS LEFT VENTRICLE Normal left ventricular size. Wall thickness is normal. The left ventricular systolic function is low normal with an estimated ejection fraction in the rang e of 50- 55%. Akinetic mid to distal inferior wall motion. Doppler parameters are consistent with impaired left ventricular relaxtion (grade 1 diastolic dysfun ction). RIGHT VENTRICLE The right ventricular size is normal. The right ventricular systoilc function is moderately decreased. Unable to determine if there is still possible thrombus at the RV apex (compared to previous echo). LEFT ATRIUM The left atrial size is normal. RIGHT ATRIUM The right atrial size is normal. ATRIAL SEPTUM Normal atrial septal thickness AORTA The aortic root and proximal ascending aorta are normal in size on limited imaging. MITRAL VALVE Structurally normal mitral valve. No mitral valve stenosis or regurgitation. AORTIC VALVE Trileaflet aortic valve. No aortic valve stenosis or regurgitation. TRICUSPID VALVE Structurally normal tricuspid valve. There is trace tricuspid valve regurgitation. No tricuspid valve stenosis. PULMONARY VALVE No pulmonary valve regurgitation or stenosis. VESSELS The inferior vena cava is normal in size. PERICARDIUM Small apical locuated pericardial effusion, no signs of tamponade Left pleural effusion. Chito Melissa DO (Electronically Signed) Final Date:17 October 2018 17:57
[2018-10-17] MEDS: Insulin NovoLIN Regular Correctional Sugar Inj SQ SCH ×2 (18:22→23:54)
[2018-10-17] MEDS: Ranolazine 500 MG 12HR ER Tablet PO SCH (18:22)
[2018-10-17] MEDS ORDERED: Methocarbamol 500 MG Tablet PO SCH (21:45)
[2018-10-17] MEDS: Morphine Inj 4 MG/ML Vial IV.PUSH PRN (21:57)
[2018-10-17] MEDS: Senna/Docusate Sodium 8.6/50 MG Tablet PO SCH (21:57)
--- NOTE | 2018-10-17 23:31 | MB ---
cc: ShinChito Gabrielle CASTELAN DATE: 10/17/2018 REASON FOR CONSULTATION: Chest pain, shortness of breath, elevated troponin. HISTORY OF PRESENT ILLNESS: Aditi Lira is a pleasant 58-year-old female, whom I see in the office and presented to [facility] due to chest pain and shortness of breath. She previously was here and underwent off-pump CABG x4 on 09/29/2018. Intraoperatively and postoperatively, she had ST elevations and I took her emergently to the label fuser tender and found her grafts had occluded and so she underwent drug-eluting stent of the first obtuse marginal, the left circumflex, and balloon angioplasty of the second obtuse marginal, as well as aspiration thrombectomy of the LAD. Immediately postoperatively, her echo showed an ejection fraction of 45% and repeat echo showed an ejection fraction of 50%-55%. There was concern for a right ventricular apical clot at that time. She came back as a heparin-induced thrombocytopenia and was seen by Hematology. She was discharged on aspirin, Plavix and Arixtra. Per her, she has been taking the Arixtra daily as suggested. She was up this morning with chest pain on the left side. It appears to be sharp and radiates down the left upper extremity and hurts more with a deep breath. On arrival, she was also noted to be hypotensive. I was called by Dr. Singletary as well as Dr. Acosta, and in discussing the case, felt that she needed a CTA to rule out a pulmonary embolus. CTA showed a pulmonary embolus in the right lower lobe as well as left-sided pleural effusion with possible pneumonia. In seeing her in the ICU, a central line has been placed and she is currently on Levophed. Dr. Acosta had talked with Dr. Curry and she has been placed on argatroban. She states that she is feeling somewhat better at this time. PAST MEDICAL HISTORY: 1. Coronary artery disease. 2. Diabetes mellitus. 3. Myocardial infarction. 4. Heparin-induced thrombocytopenia. 5. Chronic kidney disease, stage II. 6. Hyperlipidemia. 7. Hypertension. PAST SURGICAL HISTORY: 1. Cardiac catheterization (09/29/2018): Left main normal. LAD moderate disease throughout with thrombus noted at the distal portion. Distal to the RAMEY, anastomosis appears to be occluded. Left circumflex is patent with a 70% lesion in the mid portion. First and second obtuse marginals are occluded with thrombus. RCA: Moderate size vessel with 2 previous stents patent. Posterolateral branch is open. The area where previous PDA was subtotally occluded is now totally occluded. RAMEY to LAD is overall small and tortuous and appears to have flow and competitive flow due to the LAD. Saphenous vein graft to first and second obtuse marginal 100% occluded with thrombus. Saphenous vein graft to PDA was not found. She underwent a complex intervention with [place] drug-eluting stent x2 (proximal 2 x 12, mid 2 x 30) to first obtuse marginal, balloon angioplasty of second obtuse marginal, [place] drug-eluting stent (2 x 30) to mid left circumflex, and aspiration thrombectomy of LAD. 2. CABG x4 (09/29/2018): RAMEY to LAD, SVG to OM1, sequential to OM2, SVG to PDA. 3. Total abdominal hysterectomy. 4. Cardiac catheterization (12/10/2017 for inferior STEMI): RCA status post drug-eluting stent (3 x 26) to mid RCA and drug-eluting stent (2.75 x 12) to distal RCA. ALLERGIES: 1. HEPARIN. 2. METOPROLOL. 3. PEPCID. 4. LISINOPRIL. 5. INSULIN DETEMIR. FAMILY HISTORY: Multiple people in her family have premature coronary artery disease. SOCIAL HISTORY: Rarely drinks alcohol. Denies tobacco or drug abuse. REVIEW OF SYSTEMS: Fourteen systems were reviewed including osteopathic. Pertinent positives and negatives above, otherwise negative. PHYSICAL EXAMINATION: VITAL SIGNS: Temperature 98.6, heart rate 107, blood pressure 104/68, respirations 22, pulse oximetry 99% on 2 liters. GENERAL: The patient appears in mild distress due to shortness of breath. Alert, awake and oriented x3. HEENT: Extraocular muscles intact. Mucous membranes moist. NECK: Supple. No JVD at 45 degrees. No carotid bruits heard bilaterally. Carotid upstroke is brisk in nature. HEART: Tachycardic, but regular. Positive first and second heart sounds with no noted murmurs, gallops or rubs. LUNGS: Decreased breath sounds on the left side. ABDOMEN: Soft, nontender, nondistended. No organomegaly noted. EXTREMITIES: Show no clubbing, cyanosis or edema. Femoral and distal pulses are intact bilaterally. NEUROLOGIC: No focal deficits. SKIN: Warm, dry and intact. OSTEOPATHIC: No kyphoscoliosis, lordosis or paraspinal tender points. LABORATORY DATA: Hemoglobin 9.9, hematocrit 30.1, platelets 503. Potassium 4.5, BUN 17, creatinine 1.31. Lactic acid 2.1. Troponin 0.12. Electrocardiogram (10/17/2018 at 0834 hours): Sinus rhythm, possible left atrial enlargement, overall low QRS voltage, inferior myocardial infarction, ST-T wave changes, possible recent lateral RI. IMPRESSIONS: 1. Acute pulmonary embolism. 2. Extensive coronary artery disease history as above with previous coronary artery bypass grafting and stent graft closure, status post complex percutaneous coronary intervention. 3. History of heparin-induced thrombocytopenia. 4. Pneumonia. 5. Septic shock. 6. Pleural effusion. 7. Diabetes. 8. Lactic acidosis. 9. Minimally elevated troponin. RECOMMENDATIONS: 1. Ms. Lira presented with acute chest pain on the left side, most likely due to her pneumonia and pleural effusion, as well as possible pulmonary embolus. 2. Dr. Acosta has placed a central line and start her on Levophed and given her a fluid bolus. 3. Dr. Acosta has also spoke with Dr. Curry and she will be placed on argatroban. 4. We will check a 2-D echo to look at her overall left ventricular function, but also her right ventricle. 5. Minimal elevated troponin is most likely due to her recent extensive thrombosis, as well as pulmonary embolus and lactic acidosis. 6. As far as her pulmonary embolus goes, it is a relatively small area on CTA and overall I would not believe that she would be a TPA candidate due to her recent bypass. 7. She will continue on aspirin and Plavix therapy. 8. Further recommendations will be made based on the hospital course. 9. Greater than 45 minutes of critical care time spent discussing with consultants, assessing the patient and forming a plan on how to proceed in a complex patient. Thank you for allowing me to see Aditi Lira. If there are any questions, please do not hesitate to call. DO BERHANE Sequeira/gabrielle , 10:48 PM , 11:06 PM
[2018-10-18] MEDS: Sod Chloride 0.9% Inj 1,000 ML IV.CONT SCH ×3 (00:55→23:21)
[2018-10-18] MEDS: Morphine Inj 4 MG/ML Vial IV.PUSH PRN ×4 (02:43→21:58)
[2018-10-18] MEDS ORDERED: Chlorhexidine Gluconate 2% 1 Pack (2 Cloths) TOPICAL PRN (04:00)
[2018-10-18 04:05] LABS: Baso % (Auto) 0.6 % (0.0-2.0); Eos % (Auto) 0.5 % (0.0-4.0); Lymph # (Auto) 1.8 th/mm3 (1.0-4.8); Lymph % (Auto) 23.6 % (9.0-44.0); Mean Corpuscular HGB Conc 33.1 % (32.0-36.0); Mean Corpuscular Hemoglobin 28.9 pg (27.0-34.0); Mean Corpuscular Volume 87.5 fL (80.0-100.0); Mean Platelet Volume 6.4 fL (7.0-11.0); Mono # (Auto) 0.7 th/mm3 (0.0-0.9); Mono % (Auto) 9.1 % (0.0-8.0); Neut # (Auto) 5.1 th/mm3 (1.8-7.7); Neut % (Auto) 66.2 % (16.0-70.0); Platelet Count 413 th/mm3 (150-450); Red Cell Distribution Width 14.9 % (11.6-17.2); White Blood Count 7.7 th/mm3 (4.0-11.0)
[2018-10-18] MEDS: Chlorhexidine Gluconate 2% 1 Pack (2 Cloths) TOPICAL SCH (04:15)
[2018-10-18 04:16] LABS: Hematocrit 20.1 % (35.0-46.0); Hemoglobin 6.7 gm/dL (11.6-15.3)
[2018-10-18] MEDS ORDERED: Sodium Chlor 0.9% Inj 250 ML IV.SIG SCH ×2 (05:00→08:00)
[2018-10-18 05:09] LABS: Albumin 2.5 g/dL (3.4-5.0); Calcium 6.8 mg/dL (8.5-10.1); Carbon Dioxide 23.2 meq/L (21.0-32.0); Magnesium 1.9 mg/dL (1.5-2.5); Potassium 4.5 meq/L (3.5-5.1)
[2018-10-18] MEDS: Ranolazine 500 MG 12HR ER Tablet PO SCH ×2 (05:11→17:10)
--- NOTE | 2018-10-18 05:24 | XR ---
EXAM DATE: 10/18/2018 4:58 AM EST AGE/SEX: 58 years / Female INDICATIONS: Short of breath. CLINICAL DATA: This is the patient's subsequent encounter. Patient reports that signs and symptoms h ave been present for 1 week and indicates a pain score of 0/10. MEDICAL/SURGICAL HISTORY: Cerebrovascular disease. CABG[place] [facility] [place]17[place]. . FINDINGS: There is now complete opacification of the left hemithorax with fluid in consolidation. Mediastinal s hift from right to left. Left IJ line in superior vena cava. Previous sternotomy. Minimal right basil ar opacity. CONCLUSION: Complete opacification of left hemithorax fluid and consolidation. Subsegmental opacity right lung ba se is stable. Left central line unchanged. Electronically signed by: Marcel Eric MD 10/18/2018 5:23 AM EST
[2018-10-18] MEDS ORDERED: Calcium Gluconate Inj 2 GM in Dextrose 5% in Water Inj 100 ML IV.SIG ONE ×2 (05:45)
[2018-10-18] MEDS: Piperacil/Tazo 4.5 GM Premix 4.5 GM/100 ML BAG IV.SIG SCH ×3 (05:46→17:06)
[2018-10-18] MEDS: Insulin NovoLIN Regular Correctional Sugar Inj SQ SCH ×3 (05:46→17:21)
[2018-10-18 06:10] LABS: Acanthocytes Occ
--- NOTE | 2018-10-18 06:39 | ECG ---
Date Performed: 10/17/2018 Time Performed: 08:34:36 PTAGE: 58 years EKG: Sinus rhythm POSSIBLE LEFT ATRIAL ENLARGEMENT LOW QRS VOLTAGE IN PRECORDIAL LEADS POSSIBLE ANTERIOR MYOCARDIAL IN FARCTION INFERIOR MYOCARDIAL INFARCTION MODERATE T-WAVE ABNORMALITY, CONSIDER LATERAL ISCHEMIA ABNORM AL ECG PREVIOUS TRACING : 10/11/2018 19.38 Since the previous tracing, no significant change noted DOCTOR: Sunny Roth Interpretating Date/Time 10/18/2018 06:36:29
--- NOTE | 2018-10-18 07:00 | CT ---
EXAM DATE: 10/18/2018 6:51 AM EST AGE/SEX: 58 years / Female INDICATIONS: Left flank pain; rule out retroperitoneal bleed. CLINICAL DATA: This is the patient's initial encounter. Patient reports that signs and symptoms have been present for 1 day and indicates a pain score of 7/10. MEDICAL/SURGICAL HISTORY: Diabetes. Renal insufficiency, chronic. Myocardial infarction. Hyst erectomy. RADIATION DOSE: 7.37 CTDI (mGy) COMPARISON: No prior exams available for comparison. TECHNIQUE: Multiple contiguous axial images were obtained through the abdomen. Images were obtained using multiple row detector helical technique. Using automated exposure control and adjustment of the mA and/or kV according to patient size, radiation dose was kept as low as reasonably achievable to o btain optimal diagnostic quality images. DICOM format image data is available electronically for rev iew and comparison. FINDINGS: There is high density material within the lower left chest which may represent hemorrhage. Subsegment al airspace disease right lung base. No acute findings in the liver, spleen, adrenals, kidneys or pancreas. There is some vicarious excret ion of contrast into gallbladder. Contrast is present in the bladder. No bowel obstruction. No free a ir or free fluid. No retroperitoneal hemorrhage is present. CONCLUSION: 1. No retroperitoneal hemorrhage. No acute findings within the abdomen and pelvis. Mild anasarca. 2. High density material in the lower left chest tube which could represent a hemothorax. Electronically signed by: Marcel Eric MD 10/18/2018 6:58 AM EST
--- NOTE | 2018-10-18 07:03 | CT ---
EXAM DATE: 10/18/2018 6:53 AM EST AGE/SEX: 58 years / Female INDICATIONS: Low hemoglobin; rule out bleed. CLINICAL DATA: This is the patient's initial encounter. Patient reports that signs and symptoms have been present for 1 day and indicates a pain score of 0/10. MEDICAL/SURGICAL HISTORY: Renal insufficiency, chronic. Diabetes. Myocardial infarction. Hysterec penny. RADIATION DOSE: 13.03 CTDI (mGy) COMPARISON: [facility], CTA PULMONARY W CONTRAST W 3D, 10/17/2018. . TECHNIQUE: Multiple contiguous axial images were obtained through the chest during bolus infusion of 71 ml Omnipaque 350 (iohexol) nonionic water-soluble contrast as a single exam dose. Images were obtained in suspended respiration using multiple row detector helical technique. Using automated exp osure control and adjustment of the mA and/or kV according to patient size, radiation dose was kept a s low as reasonably achievable to obtain optimal diagnostic quality images. DICOM format image data is available electronically for review and comparison. FINDINGS: Comparison is CTA from October 17. Again seen a small pulmonary emboli the right lung base. There is a complex fluid collection the left hemithorax which could represent a mixture of hemorrhage and tra nsudative fluid. Consolidation and atelectasis in the left lung and complete opacification of the lef t hemithorax. This has progressed since October 17. Subsegmental airspace disease remains of the rig ht lung base. Trace pericardial fluid. No adenopathy. CONCLUSION: 1. Development of complete opacification of the left hemithorax with complete atelectasis of the lef t lung. Complex left pleural fluid with high density material suggesting hemorrhage. 2. Positive for pulmonary embolic disease as noted on prior exam. Subsegmental consolidation right l [place] base. Left central line in superior vena cava. Electronically signed by: Marcel Eric MD 10/18/2018 7:02 AM EST
--- NOTE | 2018-10-18 07:38 | P.CON ---
History of Present Illness Service: Hematology. Consult date: 10/18/18 Requesting Physician: Bladimir Acosta Reason for Consult: Heparin-induced thrombocytopenia, new pulmonary embolism. Primary Care Provider: Emerald Hahn MD Chief Complaint: Shortness of breath, chest pain, low blood pressure. History of Present Illness: Ms. Lira is a very pleasant 58-year-old female with a complicated recent past history. This patient presented to [facility] in early September with complaints of chest pain, she was found to have multivessel disease on cardiac catheterization. She was advised CABG, she underwent a four-vessel CABG on 09/29. The same day she developed ST elevation MN with hyper acute thromboses of multiple grafts. That same night the patient required coronary artery stenting with multiple stents placed within the occluded coronary artery grafts. 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 She was initiated subsequently on Arixtra for management of hit. The patient also was on dual antiplatelet therapy with aspirin and Plavix. She was discharged home 1 week ago, she reports doing well at home up until the morning of 2017, she woke up at 4:30 AM with chest pain and difficulty breathing. She took 2 nitroglycerin about 10 minutes apart to help relieve the chest pain but this did not help. She subsequently called 911 close to 7 AM and was brought in to [facility] emergency department. She underwent evaluation including CT angiogram of the thorax which revealed new right-sided pulmonary emboli (small volume) and a new left-sided complicated pleural effusion. The patient was noted to be hypotensive, she was initiated on IV fluid resuscitation and then required pressor support. She has been evaluated by cardiology, she was initiated on anticoagulation with an our gastric band drip. This morning patient was sent for CT scan of the thorax again earlier today. She was found to have worsening left-sided pleural effusion which appears to be complicated. Over the course of the past 24 hours her hemoglobin has dropped down from 9.9 g/dL at presentation down to 6.6 g/dL this morning. 2 units packed red blood cells have been ordered transfusion is pending at this time. Review of Systems Eyes: Denies double vision Ears, Nose, Mouth, and Throat: Denies change in voice Cardiovascular: Reports chest pain, Reports shortness of breath Respiratory: Reports cough Gastrointestinal: Denies abdominal pain Genitourinary: Denies abnormal vaginal bleeding Musculoskeletal: Denies back pain Skin/Breast: Denies redness, Denies yellowing of the skin Neurologic: Denies dizziness, Denies headache(s) Psychiatric: Reports anxiety Endocrine: Denies cold intolerance Hematologic/Lymphatic: Reports easy bleeding Allergic/Immunologic: Denies GI upset with certain foods PMFSH - History History Provided By: Patient - Medical / Surgical Hx Neg / Unobtainable Medical Problems Denied: Yes - Medical History Medical History: Medical History (Last Reviewed 10/18/18 @ 07:31 by Phil Curry MD) Chest pain Heparin induced thrombocytopenia Chronic renal insufficiency, stage II (mild) Coronary artery disease Diabetes mellitus History of hysterectomy MDRO (multiple drug resistant organisms) resistance Onset Date: ~09/25/18 Myocardial infarction - Surgical History Surgical History: Surgical History (Last Reviewed 10/18/18 @ 07:31 by Phil Curry MD) History of open heart surgery S/P right rotator cuff repair - Family History Family History: Family History (Last Reviewed 10/18/18 @ 07:31 by Phil Curry MD) Other Family history non-contributory - Social History I have reviewed the patient's Social History: Yes - Tobacco History Second Hand Smoke Exposure: No Tobacco Use In Past 30 Days: No Smoking Status: Never smoker - Alcohol History How Often Do You Have a Drink Containing Alcohol: Never - Substance Use History Substance History: No History of Abuse - Travel History Recent Travel in the [place] Within the Last 8 Weeks: No Recent Travel Out of the Country Within the Last 8 Weeks: No - Immunization History Tetanus Immunization: Unsure Medications and Allergies Active Medications: Active Medications Hydrocodone Bitart/Acetaminophen ([place] 5/325) 1 tab PO Q6H PRN PRN Reason: PAIN 1-10 Al Hydroxide/Mg Hydroxide (Milk Of Magnesia Liq) 30 ml PO Q12H PRN PRN Reason: Mild Constipation Albuterol (Albuterol Neb (Prn)) 2.5 mg NEB Q2HR NEB PRN PRN Reason: SHORTNESS OF BREATH/WHEEZING Albuterol (Duoneb Neb (Estelle)) 1 ampul NEB Q4HR NEB ESTELLE Last Admin: 10/18/18 07:14 Dose: 1 ampul Aspirin (Ecotrin) 81 mg PO DAILY ESTELLE Bisacodyl (Dulcolax Supp) 10 mg RECTAL DAILY PRN PRN Reason: SEVERE CONSITIPATION Chlorhexidine Gluconate (Chlorhexidine 2% Cloth) 3 pack TOPICAL DAILY@0400 ESTELLE Stop: 10/23/18 03:59 Last Admin: 10/18/18 04:15 Dose: 3 pack Chlorhexidine Gluconate (Chlorhexidine 2% Cloth) 3 pack TOPICAL DAILY@0400 PRN PRN Reason: Extra cloth needed Stop: 10/23/18 03:59 Clopidogrel Bisulfate (Plavix) 75 mg PO DAILY [facility] Dextrose (D50w Vial) 50 ml IV.PUSH UNSCH PRN PRN Reason: PER HYPOGLYCEMIA PROTOCOL Furosemide (Lasix) 40 mg PO DAILY PRN PRN Reason: SEE LABEL COMMENTS Glucagon (Glucagon Inj) 1 mg OTHER PRN PRN PRN Reason: for Hypoglycemia Protocol Sodium Chloride (Ns Inj) 1,000 mls @ 84 mls/hr IV.CONT .[id number] [facility] Last Admin: 10/18/18 00:55 Dose: 84 mls/hr Piperacillin/Tazobactam/Dextrose (Zosyn 4.5 Gm Premix) 4.5 gm in 100 mls @ 200 mls/hr IV.SIG Q6H [facility] Last Admin: 10/18/18 05:46 Dose: 200 mls/hr Norepinephrine Bitartrate 8 mg (/ Dextrose) 250 mls @ 3.75 mls/hr IV.CONT TITRATE PRN; Protocol PRN Reason: See Protocol Last Titration: 10/17/18 18:22 Dose: 2 mcg/min, 3.75 mls/hr Argatroban 250 mg/ Sodium (Chloride) 250 mls @ 0 mls/hr IV.CONT TITRATE PRN; Protocol PRN Reason: Per Protocol Last Titration: 10/17/18 23:27 Dose: 2.5 mcg/kg/min, 10.47 mls/hr Azithromycin 500 mg/ Sodium (Chloride) 250 mls @ 250 mls/hr IV.SIG Q24H ESTELLE Linezolid (Zyvox 600 Mg Premix) 300 mls @ 300 mls/hr IV.SIG Q12H ESTELLE Last Infusion: 10/18/18 06:09 Dose: Infused Sodium Chloride (Ns Inj) 250 mls @ 15 mls/hr IV.SIG ONCE [facility] Stop: 10/18/18 21:39 Insulin Human Regular (Novolin R Correctional Sugar Inj) 0 units SQ Q6HR [facility]; Protocol Last Admin: 10/18/18 05:46 Dose: 5 units Lactulose (Lactulose Liq) 30 ml PO DAILY PRN PRN Reason: SEVERE CONSITIPATION Morphine Sulfate (Morphine Inj) 4 mg IV.PUSH Q4H PRN PRN Reason: breakthrough pain Last Admin: 10/18/18 02:43 Dose: 4 mg Pantoprazole Sodium (Protonix Inj) 40 mg IV.PUSH DAILY [facility] Ranolazine (Ranexa) 500 mg PO Q12H [facility] Last Admin: 10/18/18 05:11 Dose: Not Given Senna/Docusate Sodium (Jacqui-Colace) 1 tab PO BID [facility] Last Admin: 10/17/18 21:57 Dose: Not Given Sennosides (Senokot) 17.2 mg PO Q12H PRN PRN Reason: Moderate Constipation Sertraline HCl (Zoloft) 50 mg PO DAILY [facility] Sodium Chloride (Ns Flush) 2 ml IV.FLUSH BID [facility] Last Admin: 10/17/18 21:57 Dose: 2 ml Sodium Chloride (Ns Flush) 2 ml IV.FLUSH PRN PRN PRN Reason: FLUSH AFTER USING IV ACCESS Temazepam (Restoril) 7.5 mg PO HS [facility] Last Admin: 10/17/18 21:58 Dose: Not Given Terbutaline Sulfate (Brethine Inj) 1 mg SQ UNSCH PRN PRN Reason: For Extravasation Allergies Allergy/AdvReac Type Severity Reaction Status Date / Time heparin Allergy Severe HEPARIN-INDUCED Verified 10/17/18 09:15 THROMBOCYTOPENIA metoprolol Allergy Severe HALLUCINATI Verified 10/17/18 09:15 ONS famotidine Allergy Unknown RASH Verified 10/17/18 09:15 lisinopril Allergy Unknown Itching Verified 10/17/18 09:15 insulin detemir AdvReac Unknown Diarrhea Verified 10/17/18 09:15 Home Medications Medication Instructions Recorded Confirmed Type aspirin [Aspir-81] 81 mg PO DAILY 08/03/18 10/17/18 History atorvastatin 20 mg PO DAILY 08/03/18 10/17/18 History insulin glargine [Lantus U-100 38 unit SUB-Q DAILY 08/03/18 10/17/18 History Insulin] insulin lispro [Humalog U-100 30 unit SUB-Q TIDAC 08/03/18 10/17/18 History Insulin] methocarbamol 500 mg PO QID 08/03/18 10/17/18 History nitroglycerin 0.3 mg SUBLINGUAL Q5-15M PRN 08/03/18 10/17/18 History sertraline 50 mg PO DAILY 08/03/18 10/17/18 History temazepam 7.5 mg PO HS 08/03/18 10/17/18 History docusate sodium [DOK] 100 mg PO BID PRN 10/17/18 10/17/18 History Physical Exam Vital signs: Vital Signs 10/17/18 08:37 10/17/18 08:46 10/17/18 09:07 Temperature 97.7 F Pulse Rate 97 H 94 H Respiratory Rate 18 16 Blood Pressure 81/58 L 66/38 L Pulse Oximetry 99 99 95 10/17/18 09:10 10/17/18 09:22 10/17/18 09:42 Temperature Pulse Rate 93 H 91 H 98 H Respiratory Rate 22 20 15 Blood Pressure 71/51 L 73/51 L 71/53 L Pulse Oximetry 99 98 99 10/17/18 09:57 10/17/18 10:27 10/17/18 10:42 Temperature Pulse Rate 98 H 102 H 102 H Respiratory Rate 16 22 21 Blood Pressure 68/47 L 72/54 L 73/52 L Pulse Oximetry 99 99 10/17/18 10:57 10/17/18 11:00 10/17/18 11:05 Temperature Pulse Rate 107 H Respiratory Rate 15 Blood Pressure 77/51 L 96/51 L Pulse Oximetry 100 98 10/17/18 11:12 10/17/18 12:30 10/17/18 12:54 Temperature 98.6 F Pulse Rate 108 H 107 H 107 H Respiratory Rate 25 H 22 16 Blood Pressure 62/46 L 104/68 Pulse Oximetry 99 93 L 10/17/18 13:00 10/17/18 13:45 10/17/18 13:52 Temperature Pulse Rate 108 H 137 H Respiratory Rate 24 18 40 H Blood Pressure 105/59 L Pulse Oximetry 99 99 10/17/18 14:00 10/17/18 14:52 10/17/18 15:00 Temperature Pulse Rate 103 H 104 H 103 H Respiratory Rate 28 H 16 15 Blood Pressure 138/90 112/71 Pulse Oximetry 100 100 10/17/18 16:00 10/17/18 16:36 10/17/18 17:00 Temperature 98.0 F Pulse Rate 105 H 104 H 104 H Respiratory Rate 18 18 Blood Pressure 110/59 L 110/58 L 95/58 L Pulse Oximetry 100 100 10/17/18 18:00 10/17/18 19:00 10/17/18 19:53 Temperature Pulse Rate 104 H 102 H 104 H Respiratory Rate 18 19 18 Blood Pressure 95/62 L 93/60 L Pulse Oximetry 100 100 100 10/17/18 20:00 10/17/18 21:00 10/17/18 22:00 Temperature 98.2 F Pulse Rate 103 H 104 H 105 H Respiratory Rate 8 L 30 H 27 H Blood Pressure 103/63 89/57 L 93/60 L Pulse Oximetry 100 98 99 10/17/18 22:58 10/17/18 23:00 10/17/18 23:35 Temperature Pulse Rate 102 H 102 H Respiratory Rate 20 29 H 18 Blood Pressure 99/60 L Pulse Oximetry 99 10/18/18 00:00 10/18/18 01:00 10/18/18 02:00 Temperature 98.5 F Pulse Rate 102 H 101 H 101 H Respiratory Rate 26 H 27 H 24 Blood Pressure 98/62 L 91/61 L 94/64 L Pulse Oximetry 99 100 98 10/18/18 03:00 10/18/18 03:56 10/18/18 04:00 Temperature 98.9 F Pulse Rate 100 H 101 H 102 H Respiratory Rate 21 16 26 H Blood Pressure 89/59 L 91/62 L Pulse Oximetry 99 100 10/18/18 04:10 10/18/18 05:00 10/18/18 06:00 Temperature Pulse Rate 101 H 99 H Respiratory Rate 12 Blood Pressure 89/60 L 108/61 Pulse Oximetry 99 98 10/18/18 07:00 Temperature Pulse Rate 100 H Respiratory Rate 16 Blood Pressure Pulse Oximetry 96 Intake & Output 10/17/18 10/18/18 10/18/18 18:59 06:59 18:59 Intake Total 2850 / 2850 1650 / 1650 Output Total 0 / 0 Balance 2850 / 2850 1650 / 1650 Weight 69.853 kg Intake: IV 2850 / 2850 1650 / 1650 NS Inj 1,000 ML @ 84 mls/hr IV. 1000 / 1000 CONT .[id number] ESTELLE Rx#:[id number] Maxipime Inj 2,000 MG In NS Inj 100 / 100 100 ML @ 200 mls/hr IV.SIG ONCE ONE Rx#:[id number] Zyvox 600 mg Premix 300 ML @ 300 / 300 300 / 300 300 mls/hr IV.SIG Q12H ESTELLE Rx#: [id number] Zosyn 4.5 GM Premix 4.5 gm In 200 / 200 100 / 100 100 ml @ 200 mls/hr IV.SIG Q6H ESTELLE Rx#:[id number] NS Inj 1,000 ML @ 1000 mls/hr 1000 / 1000 IV.SIG BOLUS ESTELLE Rx#:[id number] NS Inj 500 ML @ 1000 mls/hr IV. 1000 / 1000 SIG BOLUS ESTELLE Rx#:[id number] Vancomycin Inj 1,000 MG In NS 250 / 250 Inj 250 ML @ 250 mls/hr IV.SIG ONCE ONE Rx#:[id number] Oral 0 / 0 Output: Urine 0 / 0 Other: # Bowel Movements 0 Narrative: General: Middle-aged female, laying in bed, appears to be acutely ill. She is awake, alert, she whispers answers because she is weak. HEENT: Head atraumatic normal cephalic, conjunctivae pale, sclerae anicteric, oral exam dry mucous membranes. Neck exam no cervical lymphadenopathy, she has a left-sided IJ triple lumen catheter. Respiratory: Breath sounds are minimally audible over the left hemithorax. Right hemithorax good breath sounds over the upper, middle and lower lung zones. Cardiovascular: Regular rate and rhythm, S1-S2 no obvious murmurs rubs gallops. Well-healing sternotomy incision noted. Abdominal: Protuberant abdomen, soft, no obvious tenderness, positive bowel sounds no palpable organ enlargement. Lower extremities no pretibial edema no calf tenderness. PERSONAL PROTECTION SPECIALIST: No focal sensorimotor deficits. Skin: Nonfocal examination. Muscular skeletal: Adequate muscle mass, tone and strength. Results - Labs CBC & Chem 7: 10/18/18 04:00 10/18/18 04:00 Labs: Laboratory Results - last 24 hr 10/17/18 10/17/18 10/17/18 08:45 08:45 08:45 WBC 9.1 RBC 3.44 L Hgb 9.9 L Hct 30.1 L MCV 87.4 MCH 28.7 MCHC 32.8 RDW 15.2 Plt Count 503 H MPV 7.0 Prelim Diff (Auto) Neut % (Auto) 70.7 H Lymph % (Auto) 22.7 Lawrence % (Auto) 5.3 Eos % (Auto) 0.7 Baso % (Auto) 0.6 Neut # (Auto) 6.4 Lymph # (Auto) 2.1 Lawrence # (Auto) 0.5 Eos # (Auto) 0.1 Baso # (Auto) 0.1 WBC Differential . Diff Scan Differential Comment Auto diff final Acanthocytes (Spur) PT 12.9 H INR 1.3 APTT 25.0 Puncture Site Patient Temperature O2 Saturation ABG pH ABG pCO2 ABG pO2 ABG HCO3 ABG O2 Content ABG Base Excess ABG Methemoglobin Gavino Test Hemoglobin Carboxyhemoglobin O2 Delivery Device Liter Flow Critical Value Sodium 133 L Potassium 4.5 Chloride 100 Carbon Dioxide 21.6 Anion Gap 11 BUN 17 Creatinine 1.31 H Estimated GFR 51 L POC Glucose Random Glucose 262 H Lactic Acid Calcium 7.8 L Calcium Adj for Albumin Magnesium 1.7 Total Bilirubin 0.6 AST 18 ALT 42 Alkaline Phosphatase 143 H Total Creatine Kinase 56 Troponin I 0.12 H B-Natriuretic Peptide Total Protein 6.8 Albumin 3.0 L Lipase 275 Nasal Screen MRSA (PCR) Blood Type Blood Type Recheck Antibody Screen MTS Gel Crossmatch 10/17/18 10/17/18 10/17/18 08:45 09:46 10:56 WBC RBC Hgb Hct MCV MCH MCHC RDW Plt Count MPV Prelim Diff (Auto) Neut % (Auto) Lymph % (Auto) Lawrence % (Auto) Eos % (Auto) Baso % (Auto) Neut # (Auto) Lymph # (Auto) Lawrence # (Auto) Eos # (Auto) Baso # (Auto) WBC Differential Diff Scan Differential Comment Acanthocytes (Spur) PT INR APTT Puncture Site Right radial Patient Temperature 98.6 O2 Saturation 97 ABG pH 7.50 H ABG pCO2 23 L* ABG pO2 111 ABG HCO3 18 L ABG O2 Content 15.3 ABG Base Excess -4.8 L ABG Methemoglobin 0.6 Gavino Test Present Hemoglobin 11.2 L Carboxyhemoglobin 1.6 O2 Delivery Device Nasal cannula Liter Flow 2.00 Critical Value Yes Sodium Potassium Chloride Carbon Dioxide Anion Gap BUN Creatinine Estimated GFR POC Glucose Random Glucose Lactic Acid 2.1 H Calcium Calcium Adj for Albumin Magnesium Total Bilirubin AST ALT Alkaline Phosphatase Total Creatine Kinase Troponin I B-Natriuretic Peptide 326 H Total Protein Albumin Lipase Nasal Screen MRSA (PCR) Blood Type Blood Type Recheck Antibody Screen MTS Gel Crossmatch 10/17/18 10/17/18 10/17/18 12:20 13:21 17:30 WBC RBC Hgb Hct MCV MCH MCHC RDW Plt Count MPV Prelim Diff (Auto) Neut % (Auto) Lymph % (Auto) Lawrence % (Auto) Eos % (Auto) Baso % (Auto) Neut # (Auto) Lymph # (Auto) Lawrence # (Auto) Eos # (Auto) Baso # (Auto) WBC Differential Diff Scan Differential Comment Acanthocytes (Spur) PT INR APTT 46.7 H D Puncture Site Patient Temperature O2 Saturation ABG pH ABG pCO2 ABG pO2 ABG HCO3 ABG O2 Content ABG Base Excess ABG Methemoglobin Gavino Test Hemoglobin Carboxyhemoglobin O2 Delivery Device Liter Flow Critical Value Sodium Potassium Chloride Carbon Dioxide Anion Gap BUN Creatinine Estimated GFR POC Glucose Random Glucose Lactic Acid Calcium Calcium Adj for Albumin Magnesium Total Bilirubin AST ALT Alkaline Phosphatase Total Creatine Kinase 69 Troponin I 0.10 H B-Natriuretic Peptide Total Protein Albumin Lipase Nasal Screen MRSA (PCR) Not detected Blood Type Blood Type Recheck Antibody Screen MTS Gel Crossmatch 10/17/18 10/17/18 10/17/18 18:07 19:26 20:45 WBC RBC Hgb Hct MCV MCH MCHC RDW Plt Count MPV Prelim Diff (Auto) Neut % (Auto) Lymph % (Auto) Lawrence % (Auto) Eos % (Auto) Baso % (Auto) Neut # (Auto) Lymph # (Auto) Lawrence # (Auto) Eos # (Auto) Baso # (Auto) WBC Differential Diff Scan Differential Comment Acanthocytes (Spur) PT INR APTT 50.4 H Puncture Site Patient Temperature O2 Saturation ABG pH ABG pCO2 ABG pO2 ABG HCO3 ABG O2 Content ABG Base Excess ABG Methemoglobin Gavino Test Hemoglobin Carboxyhemoglobin O2 Delivery Device Liter Flow Critical Value Sodium Potassium Chloride Carbon Dioxide Anion Gap BUN Creatinine Estimated GFR POC Glucose 378 H Random Glucose Lactic Acid Calcium Calcium Adj for Albumin Magnesium Total Bilirubin AST ALT Alkaline Phosphatase Total Creatine Kinase Troponin I 0.10 H B-Natriuretic Peptide Total Protein Albumin Lipase Nasal Screen MRSA (PCR) Blood Type Blood Type Recheck Antibody Screen MTS Gel Crossmatch 10/17/18 10/18/18 10/18/18 23:54 04:00 04:00 WBC 7.7 RBC 2.30 L Hgb 6.7 L* D Hct 20.1 L* MCV 87.5 MCH 28.9 MCHC 33.1 RDW 14.9 Plt Count 413 MPV 6.4 L Prelim Diff (Auto) Slide review pending Neut % (Auto) 66.2 Lymph % (Auto) 23.6 Lawrence % (Auto) 9.1 H Eos % (Auto) 0.5 Baso % (Auto) 0.6 Neut # (Auto) 5.1 Lymph # (Auto) 1.8 Lawrence # (Auto) 0.7 Eos # (Auto) 0.0 Baso # (Auto) 0.0 WBC Differential . Diff Scan Auto diff confirmed Differential Comment . Acanthocytes (Spur) Occ H PT INR APTT Puncture Site Patient Temperature O2 Saturation ABG pH ABG pCO2 ABG pO2 ABG HCO3 ABG O2 Content ABG Base Excess ABG Methemoglobin Gavino Test Hemoglobin Carboxyhemoglobin O2 Delivery Device Liter Flow Critical Value Sodium 136 Potassium 4.5 Chloride 106 Carbon Dioxide 23.2 Anion Gap 7 BUN 14 Creatinine 1.07 H Estimated GFR 64 L POC Glucose 316 H Random Glucose 252 H Lactic Acid Calcium 6.8 L* D Calcium Adj for Albumin 7.4 L* Magnesium 1.9 Total Bilirubin 0.4 AST 11 L ALT 32 Alkaline Phosphatase 114 Total Creatine Kinase Troponin I B-Natriuretic Peptide Total Protein 6.0 L D Albumin 2.5 L Lipase Nasal Screen MRSA (PCR) Blood Type Blood Type Recheck Antibody Screen MTS Gel Crossmatch 10/18/18 10/18/18 10/18/18 04:00 04:00 05:00 WBC RBC Hgb Hct MCV MCH MCHC RDW Plt Count MPV Prelim Diff (Auto) Neut % (Auto) Lymph % (Auto) Lawrence % (Auto) Eos % (Auto) Baso % (Auto) Neut # (Auto) Lymph # (Auto) Lawrence # (Auto) Eos # (Auto) Baso # (Auto) WBC Differential Diff Scan Differential Comment Acanthocytes (Spur) PT INR APTT 55.1 H Puncture Site Patient Temperature O2 Saturation ABG pH ABG pCO2 ABG pO2 ABG HCO3 ABG O2 Content ABG Base Excess ABG Methemoglobin Gavino Test Hemoglobin Carboxyhemoglobin O2 Delivery Device Liter Flow Critical Value Sodium Potassium Chloride Carbon Dioxide Anion Gap BUN Creatinine Estimated GFR POC Glucose Random Glucose Lactic Acid 1.4 Calcium Calcium Adj for Albumin Magnesium Total Bilirubin AST ALT Alkaline Phosphatase Total Creatine Kinase Troponin I B-Natriuretic Peptide Total Protein Albumin Lipase Nasal Screen MRSA (PCR) Blood Type B Positive Blood Type Recheck Not needed Antibody Screen Negative MTS Gel Crossmatch 10/18/18 05:00 WBC RBC Hgb Hct MCV MCH MCHC RDW Plt Count MPV Prelim Diff (Auto) Neut % (Auto) Lymph % (Auto) Lawrence % (Auto) Eos % (Auto) Baso % (Auto) Neut # (Auto) Lymph # (Auto) Lawrence # (Auto) Eos # (Auto) Baso # (Auto) WBC Differential Diff Scan Differential Comment Acanthocytes (Spur) PT INR APTT Puncture Site Patient Temperature O2 Saturation ABG pH ABG pCO2 ABG pO2 ABG HCO3 ABG O2 Content ABG Base Excess ABG Methemoglobin Gavino Test Hemoglobin Carboxyhemoglobin O2 Delivery Device Liter Flow Critical Value Sodium Potassium Chloride Carbon Dioxide Anion Gap BUN Creatinine Estimated GFR POC Glucose Random Glucose Lactic Acid Calcium Calcium Adj for Albumin Magnesium Total Bilirubin AST ALT Alkaline Phosphatase Total Creatine Kinase Troponin I B-Natriuretic Peptide Total Protein Albumin Lipase Nasal Screen MRSA (PCR) Blood Type Blood Type Recheck Antibody Screen MTS Gel Crossmatch See Detail - Imaging Impressions Chest X-Ray 10/17/18 08:46 CONCLUSION: Extensive left lung pleural-parenchymal opacity. Chest CTA 10/17/18 10:41 CONCLUSION: 1. Study is positive for pulmonary embolism 2. Extensive complex pleural fluid and thickening on the left 3. Bilateral consolidative changes, fairly extensive on the left, mild on the right Chest X-Ray 10/17/18 14:47 CONCLUSION: Left effusion and consolidation stable compared to previous. Left jugular central line in satisfactory position. No pneumothorax. Abdomen/Pelvis CT 10/18/18 05:22 CONCLUSION: 1. No retroperitoneal hemorrhage. No acute findings within the abdomen and pelvis. Mild anasarca. 2. High density material in the lower left chest tube which could represent a hemothorax. Chest X-Ray 10/18/18 06:00 CONCLUSION: Complete opacification of left hemithorax fluid and consolidation. Subsegmental opacity right lung base is stable. Left central line unchanged. Chest CT 10/18/18 06:40 CONCLUSION: 1. Development of complete opacification of the left hemithorax with complete atelectasis of the left lung. Complex left pleural fluid with high density material suggesting hemorrhage. 2. Positive for pulmonary embolic disease as noted on prior exam. Subsegmental consolidation right lung base. Left central line in superior vena cava. Assessment and Plan - Plan Ms. Lira is a 58-year-old female with multiple medical comorbid conditions including long-standing history of diabetes, chronic kidney disease, coronary artery disease, recent CABG with hyperacute thromboses of the grafts. The hyper acute thrombosis was attributed to an underlying heparin-induced thrombocytopenia with thrombosis (AKILAH). The patient had been on therapeutic anticoagulation with Arixtra in combination with dual antiplatelet therapy with Plavix and aspirin. She was discharged from this facility less than 1 week ago to the outpatient setting, she woke up yesterday morning with complaints of chest pain and difficulty breathing, she was also noted to have low blood pressure. Imaging studies indicate a small volume right-sided pulmonary embolism associated with complicated/loculated left-sided pleural effusion concerning for hemothorax. In the setting of dual antiplatelet therapy and therapeutic anticoagulation and significant drop in hemoglobin a hemothorax is the likely/leading differential. Hematology service has been asked to see this patient to reconcile the competing issues i.e. ongoing hemo-thorax with drop in hemoglobin hematocrit in the setting of heparin-induced thrombocytopenia with a pulmonary embolism. Recommendations: 1. Likely hemothorax with critical drop in hemoglobin hematocrit: I will place Argatroban on hold at this time, this lady will require some sort of drainage of the left-sided effusion versus some sort of surgical intervention. I have communicated my concerns to the thoracic surgery attending. A formal consult will be placed. 2. Recent history of heparin-induced thrombocytopenia with thrombosis (AKILAH): She will require resumption of therapeutic anticoagulation once she is stable from a hemodynamic standpoint. 3. Dual antiplatelet therapy for recent placement of multiple intracoronary stents: Again this poses a complicated dilemma, I will defer to the logistics supervisor. It should be reasonable for her to continue at least 1 of the antiplatelets while we manage this patient during this critical period.
[2018-10-18] MEDS ORDERED: Ketamine Inj 50 MG/5 ML Syringe IV.PUSH ONE (08:00)
[2018-10-18] MEDS ORDERED: Lidocaine 1% Inj 50 ML Vial ONE (08:09)
[2018-10-18] MEDS ORDERED: Ketamine Inj 500 MG/10 ML Vial ONE (08:18)
[2018-10-18] MEDS ORDERED: Ketamine Inj 500 MG/10 ML Vial IV.PUSH ONE (08:30)
[2018-10-18] MEDS ORDERED: Furosemide 40 MG Tablet PO PRN (09:00)
--- NOTE | 2018-10-18 09:25 | P.PCN ---
Date of procedure: 10/18/18 Procedure: Tube Thoracostomy Procedure Note Left-sided 36 [place] chest tube Diagnosis: Acute hemothorax with hemorrhagic shock Indications: Acute hemothorax with hemorrhagic shock and acute hypoxemia Consent: Emergent. I discussed case with Dr. Campos who agrees. Anesthesia: Versed 2 mg IV, ketamine 50 mg IV Description of the Procedure: The patient was placed in the supine position. The arm was abducted above the head and secured. The left lateral chest was prepped and draped sterilely to include the axilla and nipple. 1% Lidocaine was infiltrated subcutaneously and into the tissues down to the periosteum of the rib. The 5th intercostal space was identified. A small incision was made using a #11 blade. At the mid-axillary line, blunt dissection was performed until the rib was palpated. A Simran clamp was used to bluntly enter the pleura immediately above the adjacent rib. The space was opened bluntly with the Simran clamp. A finger was inserted and lung and pleura were felt. A 36 Fr chest tube was inserted along the course of the finger and into the pleural cavity easily and without resistance. The chest tube was connected to a Pleur-o -vac and connected to -[id number] suction. The catheter was sutured to the skin using two 0 silk sandal sutures and an occlusive dressing was applied. There were no immediate complications noted. There was minimal EBL. The patient tolerated the procedure well. Chest Tube output: 700 mL dark sanguinous output. Findings: There was significant amount of soft clot palpated in the left chest space. A Chest x-ray has been ordered. I personally performed the procedure.
--- NOTE | 2018-10-18 09:31 | P.PNCC ---
Subjective Subjective Remarks/Hospital Course: Hospital Course: Patient is a 58-year-old female with history of coronary artery disease, type 2 diabetes, who underwent off-pump CABG x 4 09/29/[address] Campos. Intraoperatively she had significant ST elevations, emergently taken to [facility] by by Dr. Melissa, found to have completely occluded grafts. Patient underwent MAXWELL to OM1, LAD. balloon angiopasty to OM2. Patient had a complicated course and was diagnosed with heparin-induced thrombocytopenia. A follow-up echo on 10/03/2018 showed EF 50-55%. Patient was eventually discharged on 10/10/2018 with a prescription for Arixtra however next day she had to be admitted for 1 day for as pharmacy did not have Arixtra. Arixtra was arranged and patient was discharged again on 10/11/2018. Today she presented to the emergency department for chest pain and shortness of breath. For systolic blood pressure in the 80s patient received IV fluid bolus by EMS. Chest x-ray showed extensive left-sided infiltrate/effusion. Presuming pneumonia and septic shock, patient received cefepime and azithromycin in the ED. Lactic acid was 2.1. Critical care was contacted for admission as after 2 L fluid boluses patient remained hypotensive I discussed with Dr. Kearns, recommended additional 1 more liter fluid bolus, and start Levophed if patient remains hypotensive. I also recommended stat CT Chest PE protocol. This showed pulmonary embolism in right lower lobe segmental and subsegmental branches. Also there was extensive consolidative change in the left perihilar region, left lung base, and also large mixed density loculated and nonloculated pleural fluid with associated pleural thickening. I have discussed the case with Dr. Campos cardiothoracic surgery, Dr. Melissa, cardiology and Dr. Curry hematology oncology. Patient will be admitted to ICU and I will discontinue Arixtra and start on Argatroban IV. I evaluated the patient in the ICU. She appears to be in moderate distress hypotensive currently on 5 mcg/min of Levophed. She had received total 3 L normal saline boluses. I will place her on Argatroban as above. A stat 2D echo prelim did not reveal any evidence of RV dysfunction. Hypotension is secondary to his severe sepsis and septic shock not related to PE. No indication for TPA. Pancultured continue broad-spectrum antibiotic with Zosyn, Zyvox and azithromycin. Because of the loculation and pleural thickening involving the effusion, once clinically more stable patient may need decortication procedure Subjective: 10/18: hgb dropped acutely to 6.6 from 9.9 overnight. patient with worsening dyspnea. taken emergently down to CT for repeat chest/abd/pelvis. CT chest with enlarging hemothorax. discussed case with Dr. Campos, at his request, placed 36Fr chest tube with 1L bloody output. dyspnea improving. discussed extensively with Dr. Campos: plan to wait and watch chest tube output for 48h and repeat CT chest. discussed with Dr. Melissa: needs dual antiplatelet therapy to prevent in-stent thrombosis. risky to hold argatroban, but will be forced to at least for the next 48h given life-threatening bleeding. discussed with Dr. Curry. Discussed extensively with all family members and explained current situation. patient endorses SOB. Objective Vital Signs / I&O: Vital Signs 10/17/18 09:42 10/17/18 09:57 10/17/18 10:27 Temperature Pulse Rate 98 H 98 H 102 H Respiratory Rate 15 16 22 Blood Pressure 71/53 L 68/47 L 72/54 L Pulse Oximetry 99 99 99 10/17/18 10:42 10/17/18 10:57 10/17/18 11:00 Temperature Pulse Rate 102 H 107 H Respiratory Rate 21 15 Blood Pressure 73/52 L 77/51 L 96/51 L Pulse Oximetry 100 10/17/18 11:05 10/17/18 11:12 10/17/18 12:30 Temperature 37.0 C Pulse Rate 108 H 107 H Respiratory Rate 25 H 22 Blood Pressure 62/46 L 104/68 Pulse Oximetry 98 99 93 L 10/17/18 12:54 10/17/18 13:00 10/17/18 13:45 Temperature Pulse Rate 107 H 108 H Respiratory Rate 16 24 18 Blood Pressure 105/59 L Pulse Oximetry 99 99 10/17/18 13:52 10/17/18 14:00 10/17/18 14:52 Temperature Pulse Rate 137 H 103 H 104 H Respiratory Rate 40 H 28 H 16 Blood Pressure 138/90 Pulse Oximetry 100 10/17/18 15:00 10/17/18 16:00 10/17/18 16:36 Temperature 36.7 C Pulse Rate 103 H 105 H 104 H Respiratory Rate 15 18 Blood Pressure 112/71 110/59 L 110/58 L Pulse Oximetry 100 100 10/17/18 17:00 10/17/18 18:00 10/17/18 19:00 Temperature Pulse Rate 104 H 104 H 102 H Respiratory Rate 18 18 19 Blood Pressure 95/58 L 95/62 L 93/60 L Pulse Oximetry 100 100 100 10/17/18 19:53 10/17/18 20:00 10/17/18 21:00 Temperature 36.8 C Pulse Rate 104 H 103 H 104 H Respiratory Rate 18 8 L 30 H Blood Pressure 103/63 89/57 L Pulse Oximetry 100 100 98 10/17/18 22:00 10/17/18 22:58 10/17/18 23:00 Temperature Pulse Rate 105 H 102 H Respiratory Rate 27 H 20 29 H Blood Pressure 93/60 L 99/60 L Pulse Oximetry 99 99 10/17/18 23:35 10/18/18 00:00 10/18/18 01:00 Temperature 36.9 C Pulse Rate 102 H 102 H 101 H Respiratory Rate 18 26 H 27 H Blood Pressure 98/62 L 91/61 L Pulse Oximetry 99 100 10/18/18 02:00 10/18/18 03:00 10/18/18 03:56 Temperature Pulse Rate 101 H 100 H 101 H Respiratory Rate 24 21 16 Blood Pressure 94/64 L 89/59 L Pulse Oximetry 98 99 10/18/18 04:00 10/18/18 04:10 10/18/18 05:00 Temperature 37.2 C Pulse Rate 102 H 101 H Respiratory Rate 26 H 12 Blood Pressure 91/62 L 89/60 L Pulse Oximetry 100 99 10/18/18 06:00 10/18/18 07:00 10/18/18 08:01 Temperature 36.8 C Pulse Rate 99 H 100 H 101 H Respiratory Rate 19 26 H Blood Pressure 108/61 109/71 105/55 L Pulse Oximetry 98 96 10/18/18 08:16 10/18/18 08:55 10/18/18 09:10 Temperature 37.1 C 37.1 C 36.5 C Pulse Rate 93 H 100 H 94 H Respiratory Rate 25 H 31 H 28 H Blood Pressure 119/74 117/75 121/77 Pulse Oximetry 99 92 L 91 L Intake & Output 10/17/18 10/18/18 10/18/18 18:59 06:59 18:59 Intake Total 2850 / 2850 1650 / 1650 620 / 620 Output Total 0 / 0 850 / 850 Balance 2850 / 2850 800 / 800 620 / 620 Weight 69.853 kg 83 kg Intake: IV 2850 / 2850 1650 / 1650 220 / 220 NS Inj 1,000 ML @ 84 mls/hr IV. 1000 / 1000 CONT .[id number] GOLDY Rx#:[id number] Calcium Gluconate Inj 2 GM In 120 / 120 D5W Inj 100 ML @ 120 mls/hr IV. SIG ONCE ONE Rx#:[id number] Maxipime Inj 2,000 MG In NS Inj 100 / 100 100 ML @ 200 mls/hr IV.SIG ONCE ONE Rx#:[id number] Zyvox 600 mg Premix 300 ML @ 300 / 300 300 / 300 300 mls/hr IV.SIG Q12H GOLDY Rx#: [id number] Zosyn 4.5 GM Premix 4.5 gm In 200 / 200 100 / 100 100 / 100 100 ml @ 200 mls/hr IV.SIG Q6H [facility] Rx#:[id number] NS Inj 1,000 ML @ 1000 mls/hr 1000 / 1000 IV.SIG BOLUS [facility] Rx#:[id number] NS Inj 500 ML @ 1000 mls/hr IV. 1000 / 1000 SIG BOLUS [facility] Rx#:[id number] Vancomycin Inj 1,000 MG In NS 250 / 250 Inj 250 ML @ 250 mls/hr IV.SIG ONCE ONE Rx#:[id number] Oral 0 / 0 0 / 0 Intake (Blood Product) Amt 400 / 400 Rbc As-3 Leukoreduced Unit 400 / 400 [id number] Rbc As-3 Leukoreduced Unit 0 / 0 [id number] Output: Urine 0 / 0 Urine Amount (Catheter) 850 / 850 Straight 850 / 850 Other: # Bowel Movements 0 0 Result Diagrams: 10/18/18 12:00 10/18/18 04:00 Objective Remarks: GENERAL: Elderly female, lying in bed, in distress due to shortness of breath HEENT: Normocephalic. Atraumatic. Pupils equal, round, reactive, conjugate. Mucous membranes are moist NECK: Trachea is midline. There is no JVD. CHEST: Left chest tube is now in place with 1 L of sanguinous output. No air leak. Blood clots in the tube. Equal chest rise. Respiratory pattern is now more comfortable now that chest tube is in place. CARDIOVASCULAR: Normal rate, regular rhythm. Initially on norepinephrine but now off after blood transfusions. ABDOMEN: Soft, nontender, nondistended. No guarding. MUSCULOSKELETAL: Pulses 2+. No peripheral edema. NEUROLOGICAL: RASS -1. Awakens and follows commands. Moves all extremities. No focal deficits. Assessment and Plan - Problem List (1) Septic shock Code(s): A41.9 - Sepsis, unspecified organism; R65.21 - Severe sepsis with septic shock Status: Acute (2) HCAP (healthcare-associated pneumonia) Code(s): J18.9 - Pneumonia, unspecified organism Status: Acute (3) Acute pulmonary embolism Code(s): I26.99 - Other pulmonary embolism without acute cor pulmonale Status : Acute (4) Pleural effusion Code(s): J90 - Pleural effusion, not elsewhere classified Status: Acute (5) CAD (coronary artery disease), eek coronary artery Code(s): I25.10 - Atherosclerotic heart disease of eek coronary artery without angina pectoris Status: Chronic (6) Diabetes mellitus Code(s): E11.9 - Type 2 diabetes mellitus without complications Status: Chronic (7) S/P coronary artery bypass graft x 4 Code(s): Z95.1 - Presence of aortocoronary bypass graft Status: Chronic (8) Heparin induced thrombocytopenia (HIT) Code(s): D75.82 - Heparin induced thrombocytopenia (HIT) Status: Chronic - Assessment and Plan Plan: Assessment: 58yF with CAD s/p CABG complicated by HIT and multiple arterial and venous thrombosis as well as bleeding complications including RV apex thrombus, RLL PE, multiple coronary graft thromboses, and now spontaneous left-sided hemothorax causing hemorrhagic shock and requiring transfusions. critically ill. will keep in ICU. trend H&H. transfuse to keep hgb > 7. difficult position to be in given multiple thromboses: must hold argatroban given life-threatening bleeding. unable to hold DAPT at all costs given recent graft thomboses and new PCI. Plan: Neuro/psych: History of depression -Continue home medication sertraline 50 mg daily Resp: Right lower lobe pulmonary embolism Left-sided healthcare associated pneumonia Left spontaneous hemothorax -Hold Arixtra, hold argatroban -Currently on nasal cannula to keep oxygen saturation above 90%. -Bronchodilators with albuterol/ipratropium aerosols every 6 hours PRN -Hob elevated. -Broad-spectrum antibiotics as below -s/p left 36Fr chest tube 10/18: 1L sanguinous output. -May need OR decortication, once clinically more stable - repeat CT chest in 48h (10/20 anticipated). CV: Hemorrhagic shock Lactic acidosis s/p off-pump CABG x 4 09/29 Immediate post-op STEMI Post-op Graft thrombosis -Use Levophed to keep map above 65 - continue NS mivf - trend lactates - trend hgb - transfuse to keep hgb > 7 -Continue home aspirin Plavix: must not stop. high risk of in-stent thrombosis. -At home on Arixtra 7.5 mg subcu daily. Changed to Argatroban gtt but now on hold due to hemorrhagic shock. -Continue statins. No beta-maryjo secondary to hypotension -Hold home diuretic due to hypotension -Previously on 09/29/2018, patient had a CABG x4 followed by hyper acute graft occlusion. She was taken emergently to the biological lab technician by Dr. Melissa where she - had completely occluded grafts. Patient underwent MAXWELL to OM1, LAD. balloon angioplasty to OM2. -Echo preliminary does not show any evidence of RV dysfunction. No indication for TPA Renal: Acute kidney insufficiency- improving. -Monitor renal function, I/O's, electrolytes replacement per protocol. -Holding Lasix due to hypotension -Previous renal ultrasound indicated medical renal disease. FEN/GI: - slowly advance diet., IV Protonix -Previous transaminitis has resolved Heme/ID: Acute pulmonary embolism while on Arixtra Acute graft thrombosis Normocytic anemia RV apex thrombus Heparin Induced Thrombocytopenia Hemorrhagic shock -Discussed with international sales manager Dr. Curry -Discontinue Arixtra, hold argatroban - continue DAPT -Previously HIT positive ID: Healthcare associated left-sided pneumonia with complex effusion -Broad-spectrum antibiotics with Zyvox, Zosyn and azithromycin -Sputum blood and urine culture Endo: Type 2 diabetes -SSI with accuchecks -Hold long-acting insulin Prophylaxis: -hold anticoagulation given hemorrhagic shock. -Pantoprazole Lines: -Left IJ central line placed 10/17 Patient is critically ill with hypotension and septic shock healthcare associated pneumonia with complicated effusion. Her condition is complicated with a acute pulmonary embolism and a complex left pleural effusion. Prognosis is guarded at this time and multiple consultants involved CCT 41 MIN excluding procedures (6) Diabetes mellitus Qualifiers: Diabetes mellitus complication status: with circulatory complication
--- NOTE | 2018-10-18 09:47 | XR ---
EXAM DATE: 10/18/2018 9:42 AM EST AGE/SEX: 58 years / Female INDICATIONS: Status post chest tube placement. CLINICAL DATA: This is the patient's subsequent encounter. Patient reports that signs and symptoms h ave been present for 2 weeks and indicates a pain score of 0/10. MEDICAL/SURGICAL HISTORY: . Diabetes. Renal insufficiency, chronic. Myocardial infarction. . Hysterectomy. COMPARISON: [facility] – [place], CHEST 1V SINGLE AP, 10/18/2018. . FINDINGS: The exam demonstrates a large bore chest tube in place on the left. There is been removal of a signif icant amount of pleural fluid. There is continued consolidation of most of the left lung. The right lung is clear. The central lines in good position. The heart is enlarged. CONCLUSION: Interval placement of a large bore chest tube on the left with removal of a large portion of the pleu ral effusion. Continued consolidation of most of the left lung. Electronically signed by: Colton Carolina MD 10/18/2018 9:46 AM EST
[2018-10-18] MEDS ORDERED: Lidocaine 1% Inj 50 ML Vial INFILTRATN ONE (10:00)
[2018-10-18] MEDS: Pantoprazole Inj 40 MG Vial IV.PUSH SCH (10:31)
[2018-10-18] MEDS: Senna/Docusate Sodium 8.6/50 MG Tablet PO SCH ×2 (10:31→21:00)
[2018-10-18] MEDS: Sertraline 50 MG Tablet PO SCH (10:31)
[2018-10-18 10:56] LABS: Bacteria,Urine Rare /hpf; Bilirubin,Urine Negative (Negative); Clarity,Urine Clear (Clear); Color,Urine Yellow (Yellw/Straw); Glucose,Urine (UA) 150 mg/dL (Negative); Leukocyte Esterase,Urine Trace (Negative); Mucus,Urine Few /lpf (Occasional); Nitrite,Urine Negative (Negative); Specific Gravity,Urine 1.048 (1.002-1.035); Squamous Epithelial Cell,Urine <1 /hpf (0-5)
[2018-10-18 12:28] LABS: Hematocrit 32.8 % (35.0-46.0); Hemoglobin 11.6 gm/dL (11.6-15.3)
[2018-10-18] MEDS: Azithromycin Inj 500 MG in Sodium Chlor 0.9% Inj 250 ML IV.SIG SCH (13:11)
--- NOTE | 2018-10-18 15:51 | P.PNCV ---
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 She was advised CABG, she underwent a four-vessel CABG on 09/29/2018. The same day she developed ST elevation RI with hyper acute thromboses of multiple grafts. That same night the patient required coronary artery stenting with multiple stents placed within the occluded coronary artery grafts. 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 She was initiated subsequently on Arixtra for management of hit. The patient also was on dual antiplatelet therapy with aspirin and Plavix. She was discharged home 1 week ago, she reports doing well at home up until the morning of 10/17/2018, she woke up at 4:30 AM with chest pain and difficulty breathing. She took 2 nitroglycerin about 10 minutes apart to help relieve the chest pain but this did not help. She subsequently called 911 close to 7 AM and was brought in to [facility] emergency department. CT angiogram of the thorax which revealed new right-sided pulmonary emboli ( small volume) and a new left-sided complicated pleural effusion. She was also noted to be hypotensive, she was initiated on IV fluid resuscitation and then required pressor support. She has been evaluated by cardiology, she was initiated on anticoagulation argatroban gtt , repeat ct chest should worsening left-sided pleural effusion which appears to be complicated. Over the course of the past 24 hours her hemoglobin has dropped down from 9.9 g/dL at presentation down to 6.6 g/dL she has received total of 4 units PRBC 10/18 pt require large bore left chest tube placed by [facility] , # 36 [place] 700 mL dark sanguinous output. concern is for persistent clots plan is to repeat CT chest on Objective: Vital Signs - 24 hr 10/17/18 16:00 10/17/18 16:36 10/17/18 17:00 Temperature 98.0 F Pulse Rate 105 H 104 H 104 H Respiratory Rate 18 18 Blood Pressure 110/59 L 110/58 L 95/58 L Pulse Oximetry 100 100 10/17/18 18:00 10/17/18 19:00 10/17/18 19:53 Temperature Pulse Rate 104 H 102 H 104 H Respiratory Rate 18 19 18 Blood Pressure 95/62 L 93/60 L Pulse Oximetry 100 100 100 10/17/18 20:00 10/17/18 21:00 10/17/18 22:00 Temperature 98.2 F Pulse Rate 103 H 104 H 105 H Respiratory Rate 8 L 30 H 27 H Blood Pressure 103/63 89/57 L 93/60 L Pulse Oximetry 100 98 99 10/17/18 22:58 10/17/18 23:00 10/17/18 23:35 Temperature Pulse Rate 102 H 102 H Respiratory Rate 20 29 H 18 Blood Pressure 99/60 L Pulse Oximetry 99 10/18/18 00:00 10/18/18 01:00 10/18/18 02:00 Temperature 98.5 F Pulse Rate 102 H 101 H 101 H Respiratory Rate 26 H 27 H 24 Blood Pressure 98/62 L 91/61 L 94/64 L Pulse Oximetry 99 100 98 10/18/18 03:00 10/18/18 03:56 10/18/18 04:00 Temperature 98.9 F Pulse Rate 100 H 101 H 102 H Respiratory Rate 21 16 26 H Blood Pressure 89/59 L 91/62 L Pulse Oximetry 99 100 10/18/18 04:10 10/18/18 05:00 10/18/18 06:00 Temperature Pulse Rate 101 H 99 H Respiratory Rate 12 Blood Pressure 89/60 L 108/61 Pulse Oximetry 99 98 10/18/18 07:00 10/18/18 08:00 10/18/18 08:01 Temperature 98.8 F 98.3 F Pulse Rate 100 H 102 H 101 H Respiratory Rate 19 29 H 26 H Blood Pressure 109/71 105/65 105/55 L Pulse Oximetry 96 98 10/18/18 08:16 10/18/18 08:55 10/18/18 09:00 Temperature 98.8 F 98.7 F Pulse Rate 93 H 100 H 96 H Respiratory Rate 25 H 31 H 31 H Blood Pressure 119/74 117/75 122/81 Pulse Oximetry 99 92 L 93 L 10/18/18 09:10 10/18/18 09:58 10/18/18 10:00 Temperature 97.7 F 97.4 F L Pulse Rate 94 H 92 H 91 H Respiratory Rate 28 H 24 24 Blood Pressure 121/77 115/73 103/66 Pulse Oximetry 91 L 96 96 10/18/18 10:05 10/18/18 10:51 10/18/18 10:53 Temperature 97.5 F L 97.8 F Pulse Rate 93 H 96 H 98 H Respiratory Rate 24 16 25 H Blood Pressure 128/81 109/70 Pulse Oximetry 97 93 L 10/18/18 11:00 10/18/18 12:00 10/18/18 13:00 Temperature 98.4 F Pulse Rate 95 H 99 H 100 H Respiratory Rate 19 23 29 H Blood Pressure 116/77 105/71 108/78 Pulse Oximetry 97 93 L 93 L 10/18/18 14:00 10/18/18 14:45 10/18/18 15:00 Temperature Pulse Rate 100 H 99 H 99 H Respiratory Rate 24 16 12 Blood Pressure 92/65 L 92/63 L Pulse Oximetry 97 100 GENERAL: sleepy, just received pain meds SKIN: Warm and dry. sternal incision intact and well approximated HEAD: Normocephalic. EYES: No scleral icterus. No injection or drainage. NECK: Supple, trachea midline. No JVD or lymphadenopathy. CARDIOVASCULAR: Regular rate and rhythm slightly tachycardic without murmurs, gallops, or rubs. RESPIRATORY: diminished left lower, chest tube to wall suction , no air leak + bloody drainage . No accessory muscle use. GASTROINTESTINAL: Abdomen soft, non-tender, nondistended. MUSCULOSKELETAL: No cyanosis, or edema. BACK: Nontender without obvious deformity. No CVA tenderness. Labs: Laboratory Results - last 12 hr 10/18/18 10/18/18 10/18/18 04:00 04:00 04:00 WBC 7.7 RBC 2.30 L Hgb 6.7 L* D Hct 20.1 L* MCV 87.5 MCH 28.9 MCHC 33.1 RDW 14.9 Plt Count 413 MPV 6.4 L Prelim Diff (Auto) Slide review pending Neut % (Auto) 66.2 Lymph % (Auto) 23.6 [place] % (Auto) 9.1 H Eos % (Auto) 0.5 Baso % (Auto) 0.6 Neut # (Auto) 5.1 Lymph # (Auto) 1.8 [place] # (Auto) 0.7 Eos # (Auto) 0.0 Baso # (Auto) 0.0 WBC Differential . Diff Scan Auto diff confirmed Differential Comment . Acanthocytes (Spur) Occ H APTT Sodium 136 Potassium 4.5 Chloride 106 Carbon Dioxide 23.2 Anion Gap 7 BUN 14 Creatinine 1.07 H Estimated GFR 64 L POC Glucose Random Glucose 252 H Lactic Acid 1.4 Calcium 6.8 L* D Calcium Adj for Albumin 7.4 L* Magnesium 1.9 Total Bilirubin 0.4 AST 11 L ALT 32 Alkaline Phosphatase 114 Total Protein 6.0 L D Albumin 2.5 L Urine Color Urine Clarity Urine pH Ur Specific [place] Urine Protein Urine Glucose (UA) Urine Ketones Urine Occult Blood Urine Nitrate Urine Bilirubin Urine Urobilinogen Ur Leukocyte Esterase Urine RBC Urine WBC Urine WBC Clumps Ur Squamous Epith Cells Urine Bacteria Urine Mucus Micro UA Comment Ur Microscopic Review Urine Culture Comments Blood Type Blood Type Recheck Antibody Screen MTS Gel Crossmatch 10/18/18 10/18/18 10/18/18 04:00 05:00 05:00 WBC RBC Hgb Hct MCV MCH MCHC RDW Plt Count MPV Prelim Diff (Auto) Neut % (Auto) Lymph % (Auto) [place] % (Auto) Eos % (Auto) Baso % (Auto) Neut # (Auto) Lymph # (Auto) [place] # (Auto) Eos # (Auto) Baso # (Auto) WBC Differential Diff Scan Differential Comment Acanthocytes (Spur) APTT 55.1 H Sodium Potassium Chloride Carbon Dioxide Anion Gap BUN Creatinine Estimated GFR POC Glucose Random Glucose Lactic Acid Calcium Calcium Adj for Albumin Magnesium Total Bilirubin AST ALT Alkaline Phosphatase Total Protein Albumin Urine Color Urine Clarity Urine pH Ur Specific [place] Urine Protein Urine Glucose (UA) Urine Ketones Urine Occult Blood Urine Nitrate Urine Bilirubin Urine Urobilinogen Ur Leukocyte Esterase Urine RBC Urine WBC Urine WBC Clumps Ur Squamous Epith Cells Urine Bacteria Urine Mucus Micro UA Comment Ur Microscopic Review Urine Culture Comments Blood Type B Positive Blood Type Recheck Not needed Antibody Screen Negative MTS Gel Crossmatch See Detail 10/18/18 10/18/18 10/18/18 08:00 09:30 11:17 WBC RBC Hgb Hct MCV MCH MCHC RDW Plt Count MPV Prelim Diff (Auto) Neut % (Auto) Lymph % (Auto) [place] % (Auto) Eos % (Auto) Baso % (Auto) Neut # (Auto) Lymph # (Auto) [place] # (Auto) Eos # (Auto) Baso # (Auto) WBC Differential Diff Scan Differential Comment Acanthocytes (Spur) APTT Sodium Potassium Chloride Carbon Dioxide Anion Gap BUN Creatinine Estimated GFR POC Glucose 286 H Random Glucose Lactic Acid Calcium Calcium Adj for Albumin Magnesium Total Bilirubin AST ALT Alkaline Phosphatase Total Protein Albumin Urine Color Yellow Urine Clarity Clear Urine pH 5.0 Ur Specific [place] 1.048 H Urine Protein Negative Urine Glucose (UA) 150 H Urine Ketones Negative Urine Occult Blood Negative Urine Nitrate Negative Urine Bilirubin Negative Urine Urobilinogen Less than 2 Ur Leukocyte Esterase Trace H Urine RBC 4 H Urine WBC 12 H Urine WBC Clumps Occasional H Ur Squamous Epith Cells <1 Urine Bacteria Rare H Urine Mucus Few H Micro UA Comment Cath-culture ind Ur Microscopic Review Not Reportable Urine Culture Comments Cath-cult indicated Blood Type Blood Type Recheck Antibody Screen MTS Gel Crossmatch See Detail 10/18/18 12:00 WBC RBC Hgb 11.6 D Hct 32.8 L MCV MCH MCHC RDW Plt Count MPV Prelim Diff (Auto) Neut % (Auto) Lymph % (Auto) [place] % (Auto) Eos % (Auto) Baso % (Auto) Neut # (Auto) Lymph # (Auto) [place] # (Auto) Eos # (Auto) Baso # (Auto) WBC Differential Diff Scan Differential Comment Acanthocytes (Spur) APTT Sodium Potassium Chloride Carbon Dioxide Anion Gap BUN Creatinine Estimated GFR POC Glucose Random Glucose Lactic Acid Calcium Calcium Adj for Albumin Magnesium Total Bilirubin AST ALT Alkaline Phosphatase Total Protein Albumin Urine Color Urine Clarity Urine pH Ur Specific [place] Urine Protein Urine Glucose (UA) Urine Ketones Urine Occult Blood Urine Nitrate Urine Bilirubin Urine Urobilinogen Ur Leukocyte Esterase Urine RBC Urine WBC Urine WBC Clumps Ur Squamous Epith Cells Urine Bacteria Urine Mucus Micro UA Comment Ur Microscopic Review Urine Culture Comments Blood Type Blood Type Recheck Antibody Screen MTS Gel Crossmatch Result Diagrams: 10/18/18 12:00 10/18/18 04:00 - Plan (2) Diabetes mellitus continue pulm toileting s/p chest tube, follow up chest ct on re-eval hemothorax sternal precautions (2) Diabetes mellitus Qualifiers: Diabetes mellitus complication status: with circulatory complication
--- NOTE | 2018-10-18 22:10 | P.PNCA ---
Subjective Interval history: Events this morning reviewed Case discussed with patient and her mother at the bedside Discussed with her sister Yudi over the phone Discussed with Dr. Enriquez Drop in Hgb Chest tube placed for hemothorax 4 units PRBC given Argatroban stopped Off vasopressors Medications and Allergies Active Medications: Active Medications Hydrocodone Bitart/Acetaminophen ([place] 5/325) 1 tab PO Q6H PRN PRN Reason: PAIN 1-10 Al Hydroxide/Mg Hydroxide (Milk Of Magnesia Liq) 30 ml PO Q12H PRN PRN Reason: Mild Constipation Albuterol (Albuterol Neb (Prn)) 2.5 mg NEB Q2HR NEB PRN PRN Reason: SHORTNESS OF BREATH/WHEEZING Albuterol (Duoneb Neb (Estelle)) 1 ampul NEB Q4HR NEB [facility] Last Admin: 10/18/18 20:06 Dose: 1 ampul Aspirin (Ecotrin) 81 mg PO DAILY [facility] Last Admin: 10/18/18 10:31 Dose: 81 mg Bisacodyl (Dulcolax Supp) 10 mg RECTAL DAILY PRN PRN Reason: SEVERE CONSITIPATION Chlorhexidine Gluconate (Chlorhexidine 2% Cloth) 3 pack TOPICAL DAILY@0400 [facility] Stop: 10/23/18 03:59 Last Admin: 10/18/18 04:15 Dose: 3 pack Chlorhexidine Gluconate (Chlorhexidine 2% Cloth) 3 pack TOPICAL DAILY@0400 PRN PRN Reason: Extra cloth needed Stop: 10/23/18 03:59 Clopidogrel Bisulfate (Plavix) 75 mg PO DAILY [facility] Last Admin: 10/18/18 10:30 Dose: 75 mg Dextrose (D50w Vial) 50 ml IV.PUSH UNSCH PRN PRN Reason: PER HYPOGLYCEMIA PROTOCOL Furosemide (Lasix) 40 mg PO DAILY PRN PRN Reason: SEE LABEL COMMENTS Glucagon (Glucagon Inj) 1 mg OTHER PRN PRN PRN Reason: for Hypoglycemia Protocol Sodium Chloride (Ns Inj) 1,000 mls @ 120 mls/hr IV.CONT .Q8H20M [facility] Last Admin: 10/18/18 10:37 Dose: 84 mls/hr Piperacillin/Tazobactam/Dextrose (Zosyn 4.5 Gm Premix) 4.5 gm in 100 mls @ 200 mls/hr IV.SIG Q6H [facility] Last Infusion: 10/18/18 17:36 Dose: Infused Norepinephrine Bitartrate 8 mg (/ Dextrose) 250 mls @ 3.75 mls/hr IV.CONT TITRATE PRN; Protocol PRN Reason: See Protocol Last Titration: 10/18/18 10:56 Dose: 0 mcg/min, 0 mls/hr Argatroban 250 mg/ Sodium (Chloride) 250 mls @ 0 mls/hr IV.CONT TITRATE PRN; Protocol PRN Reason: Per Protocol Last Titration: 10/18/18 07:48 Dose: 0 mcg/kg/min, 0 mls/hr Azithromycin 500 mg/ Sodium (Chloride) 250 mls @ 250 mls/hr IV.SIG Q24H [facility] Last Infusion: 10/18/18 14:11 Dose: Infused Linezolid (Zyvox 600 Mg Premix) 300 mls @ 300 mls/hr IV.SIG Q12H [facility] Last Infusion: 10/18/18 18:06 Dose: Infused Sodium Chloride (Ns Inj) 250 mls @ 15 mls/hr IV.SIG ONCE [facility] Stop: 10/19/18 00:39 Last Admin: 10/18/18 09:39 Dose: 15 mls/hr Insulin Human Regular (Novolin R Correctional Sugar Inj) 0 units SQ Q6HR [facility]; Protocol Last Admin: 10/18/18 17:21 Dose: 3 units Lactulose (Lactulose Liq) 30 ml PO DAILY PRN PRN Reason: SEVERE CONSITIPATION Morphine Sulfate (Morphine Inj) 4 mg IV.PUSH Q4H PRN PRN Reason: breakthrough pain Last Admin: 10/18/18 21:58 Dose: 4 mg Pantoprazole Sodium (Protonix Inj) 40 mg IV.PUSH DAILY [facility] Last Admin: 10/18/18 10:31 Dose: 40 mg Ranolazine (Ranexa) 500 mg PO Q12H [facility] Last Admin: 10/18/18 17:10 Dose: 500 mg Senna/Docusate Sodium (Jacqui-Colace) 1 tab PO BID [facility] Last Admin: 10/18/18 21:00 Dose: Not Given Sennosides (Senokot) 17.2 mg PO Q12H PRN PRN Reason: Moderate Constipation Sertraline HCl (Zoloft) 50 mg PO DAILY [facility] Last Admin: 10/18/18 10:31 Dose: 50 mg Sodium Chloride (Ns Flush) 2 ml IV.FLUSH BID [facility] Last Admin: 10/18/18 21:00 Dose: 2 ml Sodium Chloride (Ns Flush) 2 ml IV.FLUSH PRN PRN PRN Reason: FLUSH AFTER USING IV ACCESS Temazepam (Restoril) 7.5 mg PO HS [facility] Last Admin: 10/18/18 21:00 Dose: Not Given Terbutaline Sulfate (Brethine Inj) 1 mg SQ UNSCH PRN PRN Reason: For Extravasation Allergies Allergy/AdvReac Type Severity Reaction Status Date / Time heparin Allergy Severe HEPARIN-INDUCED Verified 10/17/18 09:15 THROMBOCYTOPENIA metoprolol Allergy Severe HALLUCINATI Verified 10/17/18 09:15 ONS famotidine Allergy Unknown RASH Verified 10/17/18 09:15 lisinopril Allergy Unknown Itching Verified 10/17/18 09:15 insulin detemir AdvReac Unknown Diarrhea Verified 10/17/18 09:15 Home Medications Medication Instructions Recorded Confirmed Type aspirin [Aspir-81] 81 mg PO DAILY 08/03/18 10/17/18 History atorvastatin 20 mg PO DAILY 08/03/18 10/17/18 History insulin glargine [Lantus U-100 38 unit SUB-Q DAILY 08/03/18 10/17/18 History Insulin] insulin lispro [Humalog U-100 30 unit SUB-Q TIDAC 08/03/18 10/17/18 History Insulin] methocarbamol 500 mg PO QID 08/03/18 10/17/18 History nitroglycerin 0.3 mg SUBLINGUAL Q5-15M PRN 08/03/18 10/17/18 History sertraline 50 mg PO DAILY 08/03/18 10/17/18 History temazepam 7.5 mg PO HS 08/03/18 10/17/18 History docusate sodium [DOK] 100 mg PO BID PRN 10/17/18 10/17/18 History Physical Exam Vital signs: Vital Signs 10/17/18 22:58 10/17/18 23:00 10/17/18 23:35 Temperature Pulse Rate 102 H 102 H Respiratory Rate 20 29 H 18 Blood Pressure 99/60 L Pulse Oximetry 99 10/18/18 00:00 10/18/18 01:00 10/18/18 02:00 Temperature 98.5 F Pulse Rate 102 H 101 H 101 H Respiratory Rate 26 H 27 H 24 Blood Pressure 98/62 L 91/61 L 94/64 L Pulse Oximetry 99 100 98 10/18/18 03:00 10/18/18 03:56 10/18/18 04:00 Temperature 98.9 F Pulse Rate 100 H 101 H 102 H Respiratory Rate 21 16 26 H Blood Pressure 89/59 L 91/62 L Pulse Oximetry 99 100 10/18/18 04:10 10/18/18 05:00 10/18/18 06:00 Temperature Pulse Rate 101 H 99 H Respiratory Rate 12 Blood Pressure 89/60 L 108/61 Pulse Oximetry 99 98 10/18/18 07:00 10/18/18 08:00 10/18/18 08:01 Temperature 98.8 F 98.3 F Pulse Rate 100 H 102 H 101 H Respiratory Rate 19 29 H 26 H Blood Pressure 109/71 105/65 105/55 L Pulse Oximetry 96 98 10/18/18 08:16 10/18/18 08:55 10/18/18 09:00 Temperature 98.8 F 98.7 F Pulse Rate 93 H 100 H 96 H Respiratory Rate 25 H 31 H 31 H Blood Pressure 119/74 117/75 122/81 Pulse Oximetry 99 92 L 93 L 10/18/18 09:10 10/18/18 09:58 10/18/18 10:00 Temperature 97.7 F 97.4 F L Pulse Rate 94 H 92 H 91 H Respiratory Rate 28 H 24 24 Blood Pressure 121/77 115/73 103/66 Pulse Oximetry 91 L 96 96 10/18/18 10:05 10/18/18 10:51 10/18/18 10:53 Temperature 97.5 F L 97.8 F Pulse Rate 93 H 96 H 98 H Respiratory Rate 24 16 25 H Blood Pressure 128/81 109/70 Pulse Oximetry 97 93 L 10/18/18 11:00 10/18/18 12:00 10/18/18 13:00 Temperature 98.4 F Pulse Rate 95 H 99 H 100 H Respiratory Rate 19 23 29 H Blood Pressure 116/77 105/71 108/78 Pulse Oximetry 97 93 L 93 L 10/18/18 14:00 10/18/18 14:45 10/18/18 15:00 Temperature Pulse Rate 100 H 99 H 99 H Respiratory Rate 24 16 12 Blood Pressure 92/65 L 92/63 L Pulse Oximetry 97 100 10/18/18 16:00 10/18/18 17:00 10/18/18 18:00 Temperature 98.5 F Pulse Rate 99 H 99 H 102 H Respiratory Rate 27 H 30 H 35 H Blood Pressure 101/70 107/71 105/70 Pulse Oximetry 93 L 93 L 94 L 10/18/18 19:00 10/18/18 20:09 Temperature Pulse Rate 97 H 102 H Respiratory Rate 27 H 20 Blood Pressure 101/68 Pulse Oximetry 92 L 93 L Intake & Output 10/18/18 10/18/18 10/19/18 06:59 18:59 06:59 Intake Total 1650 / 1650 3570 / 3570 Output Total 850 / 850 2100 / 2100 Balance 800 / 800 1470 / 1470 Weight 83 kg Intake: IV 1650 / 1650 1967 / 1969 NS Inj 1,000 ML @ 120 mls/hr IV 1000 / 1000 1000 / 1000 .CONT .Q8H20M [facility] Rx#:[id number] Azithromycin Inj 500 MG In NS 250 / 250 Inj 250 ML @ 250 mls/hr IV.SIG Q24H [facility] Rx#:[id number] Calcium Gluconate Inj 2 GM In 120 / 120 D5W Inj 100 ML @ 120 mls/hr IV. SIG ONCE ONE Rx#:[id number] Zyvox 600 mg Premix 300 ML @ 300 / 300 300 / 300 300 mls/hr IV.SIG Q12H [facility] Rx#: [id number] Zosyn 4.5 GM Premix 4.5 gm In 100 / 100 300 / 300 100 ml @ 200 mls/hr IV.SIG Q6H [facility] Rx#:[id number] Oral 0 / 0 0 / 0 Intake (Blood Product) Amt 1600 / 1600 Rbc As-3 Leukoreduced Unit 400 / 400 [id number] Rbc As-3 Leukoreduced Unit 400 / 400 [id number] Rbc As-3 Leukoreduced Unit 400 / 400 [id number] Rbc As-3 Leukoreduced Unit 400 / 400 [id number] Output: Urine Amount (Catheter) 850 / 850 1150 / 1150 Indwelling Urethral Catheter 1150 / 1150 Straight 850 / 850 Chest Tube Drainage 950 / 950 Left Mid-Axillary Chest 950 / 950 Other: # Bowel Movements 0 0 Narrative: General: Middle-aged female, laying in bed, appears to be acutely ill. She is awake, alert, she whispers answers because she is weak. HEENT: Head atraumatic normal cephalic, conjunctivae pale, sclerae anicteric, oral exam dry mucous membranes. Neck exam no cervical lymphadenopathy, she has a left-sided IJ triple lumen catheter. Respiratory: Breath sounds are minimally audible over the left hemithorax. Right hemithorax good breath sounds over the upper, middle and lower lung zones. Cardiovascular: Regular rate and rhythm, S1-S2 no obvious murmurs rubs gallops. Well-healing sternotomy incision noted. Abdominal: Protuberant abdomen, soft, no obvious tenderness, positive bowel sounds no palpable organ enlargement. Lower extremities no pretibial edema no calf tenderness. MARINE DIVER: No focal sensorimotor deficits. Skin: Nonfocal examination. Muscular skeletal: Adequate muscle mass, tone and strength. - Urinary Catheter Management Straight Cath placed during this visit: yes Reason for continuing: Acute urinary retention Insertion date: 10/18/18 Insertion time: 09:30 Indwelling Urethral Catheter Cath placed during this visit: no Results 10/18/18 12:00 10/18/18 04:00 Cardiac Enzymes 10/17/18 10/17/18 10/17/18 Range/Units 08:45 08:45 13:21 AST 18 (15-37) U/L Troponin I 0.12 H 0.10 H (0.02-0.05) ng/mL B-Natriuretic Peptide 326 H (0-100) pg/mL 10/17/18 10/18/18 Range/Units 19:26 04:00 AST 11 L (15-37) U/L Troponin I 0.10 H (0.02-0.05) ng/mL B-Natriuretic Peptide (0-100) pg/mL Coagulation 10/17/18 10/17/18 10/17/18 Range/Units 08:45 08:45 17:30 PT 12.9 H (9.8-11.6) sec APTT 25.0 46.7 H D (23.4-31.7) sec B-Natriuretic Peptide 326 H (0-100) pg/mL 10/17/18 10/18/18 Range/Units 20:45 04:00 PT (9.8-11.6) sec APTT 50.4 H 55.1 H (23.4-31.7) sec B-Natriuretic Peptide (0-100) pg/mL CBC 10/17/18 10/18/18 10/18/18 Range/Units 08:45 04:00 12:00 WBC 9.1 7.7 (4.0-11.0) th/mm3 RBC 3.44 L 2.30 L (4.00-5.30) mil/mm3 Hgb 9.9 L 6.7 L* D 11.6 D (11.6-15.3) gm/dL Hct 30.1 L 20.1 L* 32.8 L (35.0-46.0) % Plt Count 503 H 413 (150-450) th/mm3 Neut # (Auto) 6.4 5.1 (1.8-7.7) th/mm3 Lymph # (Auto) 2.1 1.8 (1.0-4.8) th/mm3 [place]ama # (Auto) 0.5 0.7 (0.0-0.9) th/mm3 Eos # (Auto) 0.1 0.0 (0.0-0.4) th/mm3 Baso # (Auto) 0.1 0.0 (0.0-0.2) th/mm3 Comprehensive Metabolic Panel 10/17/18 10/18/18 Range/Units 08:45 04:00 Sodium 133 L 136 (136-145) meq/L Potassium 4.5 4.5 (3.5-5.1) meq/L Chloride 100 106 (98-107) meq/L Carbon Dioxide 21.6 23.2 (21.0-32.0) meq/L BUN 17 14 (7-18) mg/dL Creatinine 1.31 H 1.07 H (0.50-1.00) mg/dL Calcium 7.8 L 6.8 L* D (8.5-10.1) mg/dL AST 18 11 L (15-37) U/L ALT 42 32 (10-53) U/L Alkaline Phosphatase 143 H 114 (45-117) U/L Total Protein 6.8 6.0 L D (6.4-8.2) g/dL Albumin 3.0 L 2.5 L (3.4-5.0) g/dL Intake and Output 10/18/18 10/18/18 10/18/18 06:59 14:59 22:59 Intake Total 1650 / 1650 3170 / 3170 400 / 400 Output Total 850 / 850 2100 / 2100 Balance 800 / 800 3170 / 3170 -1700 / -1700 Intake: IV 1650 / 1650 1570 / 1570 400 / 400 NS Inj 1,000 ML @ 120 mls/hr IV 1000 / 1000 1000 / 1000 .CONT .Q8H20M [facility] Rx#:[id number] Azithromycin Inj 500 MG In NS 250 / 250 Inj 250 ML @ 250 mls/hr IV.SIG Q24H [facility] Rx#:[id number] Calcium Gluconate Inj 2 GM In 120 / 120 D5W Inj 100 ML @ 120 mls/hr IV. SIG ONCE ONE Rx#:[id number] Zyvox 600 mg Premix 300 ML @ 300 / 300 300 / 300 300 mls/hr IV.SIG Q12H [facility] Rx#: [id number] Zosyn 4.5 GM Premix 4.5 gm In 100 / 100 200 / 200 100 / 100 100 ml @ 200 mls/hr IV.SIG Q6H [facility] Rx#:[id number] Oral 0 / 0 0 / 0 Intake (Blood Product) Amt 1600 / 1600 Rbc As-3 Leukoreduced Unit 400 / 400 [id number] Rbc As-3 Leukoreduced Unit 400 / 400 [id number] Rbc As-3 Leukoreduced Unit 400 / 400 [id number] Rbc As-3 Leukoreduced Unit 400 / 400 [id number] Output: Urine Amount (Catheter) 850 / 850 1150 / 1150 Indwelling Urethral Catheter 1150 / 1150 Straight 850 / 850 Chest Tube Drainage 950 / 950 Left Mid-Axillary Chest 950 / 950 Other: # Bowel Movements 0 0 Weight 83 kg - Imaging and Cardiology Imaging: Impressions Chest X-Ray 10/17/18 08:46 CONCLUSION: Extensive left lung pleural-parenchymal opacity. Chest CTA 10/17/18 10:41 CONCLUSION: 1. Study is positive for pulmonary embolism 2. Extensive complex pleural fluid and thickening on the left 3. Bilateral consolidative changes, fairly extensive on the left, mild on the right Chest X-Ray 10/17/18 14:47 CONCLUSION: Left effusion and consolidation stable compared to previous. Left jugular central line in satisfactory position. No pneumothorax. Abdomen/Pelvis CT 10/18/18 05:22 CONCLUSION: 1. No retroperitoneal hemorrhage. No acute findings within the abdomen and pelvis. Mild anasarca. 2. High density material in the lower left chest tube which could represent a hemothorax. Chest X-Ray 10/18/18 06:00 CONCLUSION: Complete opacification of left hemithorax fluid and consolidation. Subsegmental opacity right lung base is stable. Left central line unchanged. Chest CT 10/18/18 06:40 CONCLUSION: 1. Development of complete opacification of the left hemithorax with complete atelectasis of the left lung. Complex left pleural fluid with high density material suggesting hemorrhage. 2. Positive for pulmonary embolic disease as noted on prior exam. Subsegmental consolidation right lung base. Left central line in superior vena cava. Chest X-Ray 10/18/18 08:49 CONCLUSION: Interval placement of a large bore chest tube on the left with removal of a large portion of the pleural effusion. Continued consolidation of most of the left lung. Assessment and Plan - Assessment (1) Hemothorax Code(s): J94.2 - Hemothorax Status: Acute (2) Elevated troponin Code(s): R74.8 - Abnormal levels of other serum enzymes Status: Acute (3) CAD (coronary artery disease), [place] coronary artery Code(s): I25.10 - Atherosclerotic heart disease of [place] coronary artery without angina pectoris Status: Chronic (4) S/P coronary artery bypass graft x 4 Code(s): Z95.1 - Presence of aortocoronary bypass graft Status: Chronic (5) Heparin induced thrombocytopenia (HIT) Code(s): D75.82 - Heparin induced thrombocytopenia (HIT) Status: Chronic (6) Pneumonia Code(s): J18.9 - Pneumonia, unspecified organism Status: Acute (7) Acute pulmonary embolism Code(s): I26.99 - Other pulmonary embolism without acute cor pulmonale Status : Acute - Plan 1) Hx of CAD, previous CABGx4 with acute graft closure due to HIT, s/p complex PCI Unfortunately with recent complex PCI would not stop ASA/Plavix due to high risk of stent thrombosis 2) Hemothorax Chest tube placed by critical care 3) Possible PNA Will have to see after left hemothorax is drained if truly PNA 4) Acute pulmonary embolism Argatroban stopped due to hemothorax 5) Minimal elevated troponins secondary to pulmonary embolism as well as recent events No acute coronary syndrome noted 6) Complex case Ultimately need to be on combination of anticoagulation/antiplatelet Once started on anticoagulation, consideration of stopping ASA to decrease overall bleeding risk
[2018-10-19] MEDS: Insulin NovoLIN Regular Correctional Sugar Inj SQ SCH ×5 (00:13→23:50)
[2018-10-19] MEDS: Piperacil/Tazo 4.5 GM Premix 4.5 GM/100 ML BAG IV.SIG SCH ×4 (00:13→17:15)
[2018-10-19] MEDS: Morphine Inj 4 MG/ML Vial IV.PUSH PRN ×5 (02:15→23:10)
[2018-10-19] MEDS: Chlorhexidine Gluconate 2% 1 Pack (2 Cloths) TOPICAL SCH (04:43)
[2018-10-19] MEDS: Ranolazine 500 MG 12HR ER Tablet PO SCH ×2 (05:43→18:26)
--- NOTE | 2018-10-19 06:17 | P.PNCC ---
Subjective Subjective Remarks/Hospital Course: Hospital Course: Patient is a 58-year-old female with history of coronary artery disease, type 2 diabetes, who underwent off-pump CABG x 4 09/29/[address] Campos. Intraoperatively she had significant ST elevations, emergently taken to [facility] by by Dr. Melissa, found to have completely occluded grafts. Patient underwent MAXWELL to OM1, LAD. balloon angiopasty to OM2. Patient had a complicated course and was diagnosed with heparin-induced thrombocytopenia. A follow-up echo on 10/03/2018 showed EF 50-55%. Patient was eventually discharged on 10/10/2018 with a prescription for Arixtra however next day she had to be admitted for 1 day for as pharmacy did not have Arixtra. Arixtra was arranged and patient was discharged again on 10/11/2018. Today she presented to the emergency department for chest pain and shortness of breath. For systolic blood pressure in the 80s patient received IV fluid bolus by EMS. Chest x-ray showed extensive left-sided infiltrate/effusion. Presuming pneumonia and septic shock, patient received cefepime and azithromycin in the ED. Lactic acid was 2.1. Critical care was contacted for admission as after 2 L fluid boluses patient remained hypotensive I discussed with Dr. Kearns, recommended additional 1 more liter fluid bolus, and start Levophed if patient remains hypotensive. I also recommended stat CT Chest PE protocol. This showed pulmonary embolism in right lower lobe segmental and subsegmental branches. Also there was extensive consolidative change in the left perihilar region, left lung base, and also large mixed density loculated and nonloculated pleural fluid with associated pleural thickening. I have discussed the case with Dr. Campos cardiothoracic surgery, Dr. Melissa, cardiology and Dr. Curry hematology oncology. Patient will be admitted to ICU and I will discontinue Arixtra and start on Argatroban IV. I evaluated the patient in the ICU. She appears to be in moderate distress hypotensive currently on 5 mcg/min of Levophed. She had received total 3 L normal saline boluses. I will place her on Argatroban as above. A stat 2D echo prelim did not reveal any evidence of RV dysfunction. Hypotension is secondary to his severe sepsis and septic shock not related to PE. No indication for TPA. Pancultured continue broad-spectrum antibiotic with Zosyn, Zyvox and azithromycin. Because of the loculation and pleural thickening involving the effusion, once clinically more stable patient may need decortication procedure Subjective: 10/18: hgb dropped acutely to 6.6 from 9.9 overnight. patient with worsening dyspnea. taken emergently down to CT for repeat chest/abd/pelvis. CT chest with enlarging hemothorax. discussed case with Dr. Campos, at his request, placed 36Fr chest tube with 1L bloody output. dyspnea improving. discussed extensively with Dr. Campos: plan to wait and watch chest tube output for 48h and repeat CT chest. discussed with Dr. Melissa: needs dual antiplatelet therapy to prevent in-stent thrombosis. risky to hold argatroban, but will be forced to at least for the next 48h given life-threatening bleeding. discussed with Dr. Curry. Discussed extensively with all family members and explained current situation. patient endorses SOB. 10/19: multiple clots in chest tube. CXR again with whiteout of the left lung field. discussed with Dr. Campos- he will take to OR for left VATS washout and hematoma evacuation. discussed extensively with patient and family. hgb 11.6-> 9.4. off vasopressors. Objective Vital Signs / I&O: Vital Signs 10/18/18 07:00 10/18/18 08:00 10/18/18 08:01 Temperature 37.1 C 36.8 C Pulse Rate 100 H 102 H 101 H Respiratory Rate 19 29 H 26 H Blood Pressure 109/71 105/65 105/55 L Pulse Oximetry 96 98 10/18/18 08:16 10/18/18 08:55 10/18/18 09:00 Temperature 37.1 C 37.1 C Pulse Rate 93 H 100 H 96 H Respiratory Rate 25 H 31 H 31 H Blood Pressure 119/74 117/75 122/81 Pulse Oximetry 99 92 L 93 L 10/18/18 09:10 10/18/18 09:58 10/18/18 10:00 Temperature 36.5 C 36.3 C L Pulse Rate 94 H 92 H 91 H Respiratory Rate 28 H 24 24 Blood Pressure 121/77 115/73 103/66 Pulse Oximetry 91 L 96 96 10/18/18 10:05 10/18/18 10:51 10/18/18 10:53 Temperature 36.4 C L 36.6 C Pulse Rate 93 H 96 H 98 H Respiratory Rate 24 16 25 H Blood Pressure 128/81 109/70 Pulse Oximetry 97 93 L 10/18/18 11:00 10/18/18 12:00 10/18/18 13:00 Temperature 36.9 C Pulse Rate 95 H 99 H 100 H Respiratory Rate 19 23 29 H Blood Pressure 116/77 105/71 108/78 Pulse Oximetry 97 93 L 93 L 10/18/18 14:00 10/18/18 14:45 10/18/18 15:00 Temperature Pulse Rate 100 H 99 H 99 H Respiratory Rate 24 16 12 Blood Pressure 92/65 L 92/63 L Pulse Oximetry 97 100 10/18/18 16:00 10/18/18 17:00 10/18/18 18:00 Temperature 36.9 C Pulse Rate 99 H 99 H 102 H Respiratory Rate 27 H 30 H 35 H Blood Pressure 101/70 107/71 105/70 Pulse Oximetry 93 L 93 L 94 L 10/18/18 19:00 10/18/18 20:00 10/18/18 20:09 Temperature 37.0 C Pulse Rate 97 H 97 H 102 H Respiratory Rate 27 H 26 H 20 Blood Pressure 101/68 95/63 L Pulse Oximetry 92 L 95 93 L 10/18/18 21:00 10/18/18 22:00 10/18/18 23:00 Temperature Pulse Rate 98 H 97 H 93 H Respiratory Rate 25 H 16 24 Blood Pressure 100/62 101/59 L 94/64 L Pulse Oximetry 93 L 95 94 L 10/19/18 00:00 10/19/18 00:07 10/19/18 01:00 Temperature 37.2 C Pulse Rate 93 H 97 H 92 H Respiratory Rate 23 14 24 Blood Pressure 98/66 L 101/67 Pulse Oximetry 95 94 L 10/19/18 02:00 10/19/18 03:00 10/19/18 04:35 Temperature Pulse Rate 91 H 91 H 99 H Respiratory Rate 21 23 20 Blood Pressure 93/60 L 95/61 L Pulse Oximetry 94 L 95 Intake & Output 10/18/18 10/18/18 10/19/18 06:59 18:59 06:59 Intake Total 1650 / 1650 3570 / 3570 1100 / 1100 Output Total 850 / 850 2100 / 2099 Balance 800 / 800 1470 / 1470 1100 / 1100 Weight 83 kg Intake: IV 1650 / 1650 1967 / 1967 1100 / 1100 NS Inj 1,000 ML @ 120 mls/hr IV 1000 / 1000 1000 / 1000 1000 / 1000 .CONT .Q8H20M [facility] Rx#:[id number] Azithromycin Inj 500 MG In NS 250 / 250 Inj 250 ML @ 250 mls/hr IV.SIG Q24H [facility] Rx#:[id number] Calcium Gluconate Inj 2 GM In 120 / 120 D5W Inj 100 ML @ 120 mls/hr IV. SIG ONCE ONE Rx#:[id number] Zyvox 600 mg Premix 300 ML @ 300 / 300 300 / 300 300 mls/hr IV.SIG Q12H [facility] Rx#: [id number] Zosyn 4.5 GM Premix 4.5 gm In 100 / 100 300 / 300 100 / 100 100 ml @ 200 mls/hr IV.SIG Q6H [facility] Rx#:[id number] Oral 0 / 0 0 / 0 Intake (Blood Product) Amt 1600 / 1600 Rbc As-3 Leukoreduced Unit 400 / 400 [id number] Rbc As-3 Leukoreduced Unit 400 / 400 [id number] Rbc As-3 Leukoreduced Unit 400 / 400 [id number] Rbc As-3 Leukoreduced Unit 400 / 400 [id number] Output: Urine Amount (Catheter) 850 / 850 1150 / 1150 Indwelling Urethral Catheter 1150 / 1150 Straight 850 / 850 Chest Tube Drainage 950 / 950 Left Mid-Axillary Chest 950 / 950 Other: # Bowel Movements 0 0 Result Diagrams: 10/19/18 06:55 10/19/18 06:55 Objective Remarks: GENERAL: Elderly female, lying in bed, no distress this morning. HEENT: Normocephalic. Atraumatic. Pupils equal, round, reactive, conjugate. Mucous membranes are moist NECK: Trachea is midline. There is no JVD. CHEST: Left chest tube in place without significant drainage from yesterday. no more tidaling. to suction. CARDIOVASCULAR: Normal rate, regular rhythm. sinus. ABDOMEN: Soft, nontender, nondistended. No guarding. MUSCULOSKELETAL: Pulses 2+. No peripheral edema. NEUROLOGICAL: RASS 0. Awake and follows commands. Moves all extremities. No focal deficits. Assessment and Plan - Problem List (1) Septic shock Code(s): A41.9 - Sepsis, unspecified organism; R65.21 - Severe sepsis with septic shock Status: Acute (2) HCAP (healthcare-associated pneumonia) Code(s): J18.9 - Pneumonia, unspecified organism Status: Acute (3) Acute pulmonary embolism Code(s): I26.99 - Other pulmonary embolism without acute cor pulmonale Status : Acute (4) Pleural effusion Code(s): J90 - Pleural effusion, not elsewhere classified Status: Acute (5) CAD (coronary artery disease), [place] coronary artery Code(s): I25.10 - Atherosclerotic heart disease of [place] coronary artery without angina pectoris Status: Chronic (6) Diabetes mellitus Code(s): E11.9 - Type 2 diabetes mellitus without complications Status: Chronic (7) S/P coronary artery bypass graft x 4 Code(s): Z95.1 - Presence of aortocoronary bypass graft Status: Chronic (8) Heparin induced thrombocytopenia (HIT) Code(s): D75.82 - Heparin induced thrombocytopenia (HIT) Status: Chronic - Assessment and Plan Plan: Assessment: 58yF with CAD s/p CABG complicated by AKILAH and multiple arterial and venous thrombosis as well as bleeding complications including RV apex thrombus, RLL PE, multiple coronary graft thromboses, and now spontaneous left- sided hemothorax causing hemorrhagic shock and requiring transfusions. critically ill. will keep in ICU. trend H&H. transfuse to keep hgb > 7. difficult position to be in given multiple thromboses: must hold argatroban given life-threatening bleeding. unable to hold DAPT at all costs given recent graft thomboses and new PCI. Plan for left VATS washout today. Plan: Neuro/psych: History of depression -Continue home medication sertraline 50 mg daily Resp: Right lower lobe pulmonary embolism Left-sided healthcare associated pneumonia Left spontaneous hemothorax -Hold Arixtra, hold argatroban -Currently on nasal cannula to keep oxygen saturation above 90%. -Bronchodilators with albuterol/ipratropium aerosols every 6 hours PRN -Hob elevated. -Broad-spectrum antibiotics as below -s/p left 36Fr chest tube 10/18: 1L sanguinous output, now clotted off. -to OR today for left VATS washout, hematoma evacuation. - keep all chest tubes to suction - would leave off anticoagulation for a minimum of 48h and then gently anticoagulate with chest tubes still in place to watch output. if therapeutic on anticoagulation without further bleeding, would discontinue chest tubes at that time. CV: Hemorrhagic shock- resolving. Lactic acidosis- resolved s/p off-pump CABG x 4 09/29 Immediate post-op STEMI Post-op Graft thrombosis -Use Levophed to keep map above 65 - decrease mivf to 42cc/hr. - trend lactates - trend hgb - transfuse to keep hgb > 7 -Continue home aspirin Plavix: must not stop. high risk of in-stent thrombosis. -At home on Arixtra 7.5 mg subcu daily. Changed to Argatroban gtt but now on hold due to hemorrhagic shock. -Continue statins. No beta-maryjo secondary to hypotension -Hold home diuretic due to hypotension -Previously on 09/29/2018, patient had a CABG x4 followed by hyper acute graft occlusion. She was taken emergently to the rn cardiac cath by Dr. Melissa where she - had completely occluded grafts. Patient underwent MAXWELL to OM1, LAD. balloon angioplasty to OM2. -Echo preliminary does not show any evidence of RV dysfunction. No indication for TPA Renal: Acute kidney insufficiency- improving. -Monitor renal function, I/O's, electrolytes replacement per protocol. -Holding Lasix due to hypotension -Previous renal ultrasound indicated medical renal disease. FEN/GI: - slowly advance diet., IV Protonix -Previous transaminitis has resolved Heme/ID: Acute pulmonary embolism while on Arixtra Acute graft thrombosis Normocytic anemia RV apex thrombus Heparin Induced Thrombocytopenia Hemorrhagic shock -Discussed with healthcare account manager Dr. Curry -Discontinue Arixtra, hold argatroban - continue DAPT -Previously HIT positive ID: Healthcare associated left-sided pneumonia with complex effusion -Broad-spectrum antibiotics with Zyvox, Zosyn and azithromycin -Sputum blood and urine culture: NGTD - if cultures NGTD at 72h, will de-escalate abx therapy. Endo: Type 2 diabetes -SSI with accuchecks -Hold long-acting insulin Prophylaxis: -hold anticoagulation given hemorrhagic shock. -Pantoprazole Lines: -Left IJ central line placed 10/17 Keep in ICU. (6) Diabetes mellitus Qualifiers: Diabetes mellitus complication status: with circulatory complication
--- NOTE | 2018-10-19 06:51 | XR ---
EXAM DATE: 10/19/2018 6:37 AM EST AGE/SEX: 58 years / Female INDICATIONS: Short of breath. CLINICAL DATA: This is the patient's initial encounter. Patient reports that signs and symptoms have been present for 1 day and indicates a pain score of 0/10. MEDICAL/SURGICAL HISTORY: . Diabetes. Renal insufficiency, chronic. Myocardial infarction. Hy sterectomy. COMPARISON: C, CHEST 1V SINGLE AP, 10/18/2018. . FINDINGS: Left central line tip in superior vena cava. Left chest tube with near complete opacification remaini ng in the left hemithorax. Mild right basilar airspace disease. No pneumothorax. CONCLUSION: Left chest tube and left central line without thorax. Near-complete opacification of the left hemitho rax. Mild right basilar airspace disease. Electronically signed by: Marcel Eric MD 10/19/2018 6:50 AM EST
--- NOTE | 2018-10-19 07:32 | P.PNONC ---
Subjective Interval history: Ms. Lira was seen and examined this morning, vital signs, labs, events and procedures over the past 24 hours were reviewed. Imaging studies including x- rays of the chest were also reviewed. Yesterday patient underwent large bore left-sided chest tube placement, approximately 700 cc of sanguinous fluid was evacuated immediately, overnight an additional 1000 cc of sanguinous fluid has been evacuated. The patient feels her breathing is improved significantly, she continues to however have chest pain across the midportion of her chest including both the right and the left side. The patient is no longer requiring pressor support. She is presently on aspirin and Plavix alone, her gastric band was placed on hold yesterday morning, this will now be discontinued. Objective Vital Signs/Intake & Output: Vital Signs 10/18/18 08:00 10/18/18 08:01 10/18/18 08:16 Temperature 98.8 F 98.3 F 98.8 F Pulse Rate 102 H 101 H 93 H Respiratory Rate 29 H 26 H 25 H Blood Pressure 105/65 105/55 L 119/74 Pulse Oximetry 98 99 10/18/18 08:55 10/18/18 09:00 10/18/18 09:10 Temperature 98.7 F 97.7 F Pulse Rate 100 H 96 H 94 H Respiratory Rate 31 H 31 H 28 H Blood Pressure 117/75 122/81 121/77 Pulse Oximetry 92 L 93 L 91 L 10/18/18 09:58 10/18/18 10:00 10/18/18 10:05 Temperature 97.4 F L 97.5 F L Pulse Rate 92 H 91 H 93 H Respiratory Rate 24 24 24 Blood Pressure 115/73 103/66 128/81 Pulse Oximetry 96 96 97 10/18/18 10:51 10/18/18 10:53 10/18/18 11:00 Temperature 97.8 F Pulse Rate 96 H 98 H 95 H Respiratory Rate 16 25 H 19 Blood Pressure 109/70 116/77 Pulse Oximetry 93 L 97 10/18/18 12:00 10/18/18 13:00 10/18/18 14:00 Temperature 98.4 F Pulse Rate 99 H 100 H 100 H Respiratory Rate 23 29 H 24 Blood Pressure 105/71 108/78 92/65 L Pulse Oximetry 93 L 93 L 97 10/18/18 14:45 10/18/18 15:00 10/18/18 16:00 Temperature Pulse Rate 99 H 99 H 99 H Respiratory Rate 16 12 27 H Blood Pressure 92/63 L 101/70 Pulse Oximetry 100 93 L 10/18/18 17:00 10/18/18 18:00 10/18/18 19:00 Temperature 98.5 F Pulse Rate 99 H 102 H 97 H Respiratory Rate 30 H 35 H 27 H Blood Pressure 107/71 105/70 101/68 Pulse Oximetry 93 L 94 L 92 L 10/18/18 20:00 10/18/18 20:09 10/18/18 21:00 Temperature 98.6 F Pulse Rate 97 H 102 H 98 H Respiratory Rate 26 H 20 25 H Blood Pressure 95/63 L 100/62 Pulse Oximetry 95 93 L 93 L 10/18/18 22:00 10/18/18 23:00 10/19/18 00:00 Temperature 98.9 F Pulse Rate 97 H 93 H 93 H Respiratory Rate 16 24 23 Blood Pressure 101/59 L 94/64 L 98/66 L Pulse Oximetry 95 94 L 95 10/19/18 00:07 10/19/18 01:00 10/19/18 02:00 Temperature Pulse Rate 97 H 92 H 91 H Respiratory Rate 14 24 21 Blood Pressure 101/67 93/60 L Pulse Oximetry 94 L 94 L 10/19/18 03:00 10/19/18 04:35 Temperature Pulse Rate 91 H 99 H Respiratory Rate 23 20 Blood Pressure 95/61 L Pulse Oximetry 95 Intake & Output 10/18/18 10/19/18 10/19/18 18:59 06:59 18:59 Intake Total 3570 / 3570 1100 / 1100 Output Total 2100 / 2100 Balance 1470 / 1470 1100 / 1100 Intake: IV 1967 / 1967 1100 / 1100 NS Inj 1,000 ML @ 120 mls/hr IV 1000 / 1000 1000 / 1000 .CONT .[id number] GOLDY Rx#:[id number] Azithromycin Inj 500 MG In NS 250 / 250 Inj 250 ML @ 250 mls/hr IV.SIG Q24H G[facility] Rx#:[id number] Calcium Gluconate Inj 2 GM In 120 / 120 D5W Inj 100 ML @ 120 mls/hr IV. SIG ONCE ONE Rx#:[id number] Zyvox 600 mg Premix 300 ML @ 300 / 300 300 mls/hr IV.SIG Q12H G[facility] Rx#: [id number] Zosyn 4.5 GM Premix 4.5 gm In 300 / 300 100 / 100 100 ml @ 200 mls/hr IV.SIG Q6H [facility] Rx#:[id number] Oral 0 / 0 Intake (Blood Product) Amt 1600 / 1600 Rbc As-3 Leukoreduced Unit 400 / 400 [id number] Rbc As-3 Leukoreduced Unit 400 / 400 [id number] Rbc As-3 Leukoreduced Unit 400 / 400 [id number] Rbc As-3 Leukoreduced Unit 400 / 400 [id number] Output: Urine Amount (Catheter) 1150 / 1150 Indwelling Urethral Catheter 1150 / 1150 Chest Tube Drainage 950 / 950 Left Mid-Axillary Chest 950 / 950 Other: # Bowel Movements 0 Result Diagrams: 10/18/18 12:00 10/18/18 04:00 Laboratory Results: Laboratory Results - last 24 hr 10/18/18 10/18/18 10/18/18 05:00 08:00 09:30 Hgb Hct POC Glucose Urine Color Yellow Urine Clarity Clear Urine pH 5.0 Ur Specific [place] 1.048 H Urine Protein Negative Urine Glucose (UA) 150 H Urine Ketones Negative Urine Occult Blood Negative Urine Nitrate Negative Urine Bilirubin Negative Urine Urobilinogen Less than 2 Ur Leukocyte Esterase Trace H Urine RBC 4 H Urine WBC 12 H Urine WBC Clumps Occasional H Ur Squamous Epith Cells <1 Urine Bacteria Rare H Urine Mucus Few H Micro UA Comment Cath-culture ind Ur Microscopic Review Not Reportable Urine Culture Comments Cath-cult indicated MTS Gel Crossmatch See Detail See Detail 10/18/18 10/18/18 10/18/18 11:17 12:00 17:14 Hgb 11.6 D Hct 32.8 L POC Glucose 286 H 223 H Urine Color Urine Clarity Urine pH Ur Specific [place] Urine Protein Urine Glucose (UA) Urine Ketones Urine Occult Blood Urine Nitrate Urine Bilirubin Urine Urobilinogen Ur Leukocyte Esterase Urine RBC Urine WBC Urine WBC Clumps Ur Squamous Epith Cells Urine Bacteria Urine Mucus Micro UA Comment Ur Microscopic Review Urine Culture Comments MTS Gel Crossmatch 10/18/18 10/19/18 23:24 05:30 Hgb Hct POC Glucose 265 H 193 H Urine Color Urine Clarity Urine pH Ur Specific [place] Urine Protein Urine Glucose (UA) Urine Ketones Urine Occult Blood Urine Nitrate Urine Bilirubin Urine Urobilinogen Ur Leukocyte Esterase Urine RBC Urine WBC Urine WBC Clumps Ur Squamous Epith Cells Urine Bacteria Urine Mucus Micro UA Comment Ur Microscopic Review Urine Culture Comments MTS Gel Crossmatch Culture Results: Microbiology 10/17/18 09:45 Aerobic Blood Culture - Preliminary Blood - Peripheral No growth in 1 day Anaerobic Blood Culture - Preliminary No growth in 1 day 10/17/18 09:35 Aerobic Blood Culture - Preliminary Blood - Peripheral No growth in 1 day Anaerobic Blood Culture - Preliminary No growth in 1 day Imaging Studies: Impressions Chest X-Ray 10/18/18 08:49 CONCLUSION: Interval placement of a large bore chest tube on the left with removal of a large portion of the pleural effusion. Continued consolidation of most of the left lung. Chest X-Ray 10/19/18 00:00 CONCLUSION: Left chest tube and left central line without thorax. Near-complete opacification of the left hemithorax. Mild right basilar airspace disease. Medications: Active Medications Generic Name Dose Route Start Last Admin Trade Name Freq PRN Reason Stop Dose Admin Albuterol 1 ampul 10/17/18 12:00 10/19/18 04:35 Duoneb Neb ([facility]) NEB 1 ampul Q4HR NEB GOLDY Administration Aspirin 81 mg 10/18/18 09:00 10/18/18 10:31 Ecotrin PO 81 mg DAILY GOLDY Administration Chlorhexidine Gluconate 3 pack 10/18/18 04:00 10/19/18 04:43 Chlorhexidine 2% Cloth TOPICAL 10/23/18 03:59 3 pack DAILY@0400 GOLDY Administration Clopidogrel Bisulfate 75 mg 10/18/18 09:00 10/18/18 10:30 Plavix PO 75 mg DAILY GOLDY Administration Sodium Chloride 1,000 mls @ 42 mls/hr 10/17/18 10:45 10/19/18 06:13 Ns Inj IV.CONT 42 mls/hr .[id number] GOLDY Infusion Piperacillin/Tazobactam/Dextrose 4.5 gm in 100 mls @ 200 mls/hr 10/17/18 12: 00 10/19/18 05:43 Zosyn 4.5 Gm Premix IV.SIG 200 mls/hr Q6H GOLDY Administration Norepinephrine Bitartrate 8 mg 250 mls @ 3.75 mls/hr 10/17/18 12:00 10/18/18 10:56 / Dextrose IV.CONT 0 mcg/min TITRATE PRN 0 mls/hr See Protocol Titration Protocol 2 MCG/MIN Argatroban 250 mg/ Sodium 250 mls @ 0 mls/hr 10/17/18 14:00 10/18/18 07:48 Chloride IV.CONT 0 mcg/kg/min TITRATE PRN 0 mls/hr Per Protocol Titration Protocol Per Protocol Azithromycin 500 mg/ Sodium 250 mls @ 250 mls/hr 10/18/18 14:00 10/18/18 14: 11 Chloride IV.SIG Infused Q24H GOLDY Infusion Linezolid 300 mls @ 300 mls/hr 10/17/18 17:00 10/19/18 05:43 Zyvox 600 Mg Premix IV.SIG 300 mls/hr Q12H GOLDY Administration Insulin Human Regular 0 units 10/17/18 18:00 10/19/18 05:44 Novolin R Correctional Sugar Inj SQ 1 units Q6HR GOLDY Administration Protocol Morphine Sulfate 4 mg 10/17/18 21:39 10/19/18 06:15 Morphine Inj IV.PUSH 4 mg Q4H PRN Administration breakthrough pain Pantoprazole Sodium 40 mg 10/18/18 09:00 10/18/18 10:31 Protonix Inj IV.PUSH 40 mg DAILY GOLDY Administration Ranolazine 500 mg 10/17/18 18:00 10/19/18 05:43 Ranexa PO 500 mg Q12H GOLDY Administration Senna/Docusate Sodium 1 tab 10/17/18 21:00 10/18/18 21:00 Jacqui-Colace PO Not Given BID GOLDY Sertraline HCl 50 mg 10/18/18 09:00 10/18/18 10:31 Zoloft PO 50 mg DAILY GOLDY Administration Sodium Chloride 2 ml 10/17/18 21:00 10/18/18 21:00 Ns Flush IV.FLUSH 2 ml BID GOLDY Administration Temazepam 7.5 mg 10/17/18 21:00 10/18/18 21:00 Restoril PO Not Given HS GOLDY Objective Remarks: General: Middle-aged female, laying in bed, appears to be more comfortable today. She is awake, alert. HEENT: Head atraumatic normal cephalic, conjunctivae pale, sclerae anicteric, oral exam dry mucous membranes. Neck exam no cervical lymphadenopathy, she has a left-sided IJ triple lumen catheter. Respiratory: Breath sounds are minimally audible over the left hemithorax. Right hemithorax good breath sounds over the upper, middle and lower lung zones. Chest: Interval placement of a large caliber left-sided chest tube. Cardiovascular: Regular rate and rhythm, S1-S2 no obvious murmurs rubs gallops. Well-healing sternotomy incision noted. Abdominal: Protuberant abdomen, soft, no obvious tenderness, positive bowel sounds no palpable organ enlargement. Lower extremities no pretibial edema no calf tenderness. [employer]: No focal sensorimotor deficits. Skin: Nonfocal examination. Muscular skeletal: Adequate muscle mass, tone and strength. Assessment/Plan - Plan Ms. Lira is a 58-year-old female with multiple medical comorbid conditions including long-standing history of diabetes, chronic kidney disease, coronary artery disease, recent CABG with hyperacute thromboses of the grafts. The hyper acute thrombosis was attributed to an underlying heparin-induced thrombocytopenia with thrombosis (AKILAH). The patient had been on therapeutic anticoagulation with Arixtra in combination with dual antiplatelet therapy with Plavix and aspirin. She was discharged from this facility less than 1 week ago to the outpatient setting, she woke up yesterday morning with complaints of chest pain and difficulty breathing, she was also noted to have low blood pressure. Imaging studies indicate a small volume right-sided pulmonary embolism associated with complicated/loculated left-sided pleural effusion concerning for hemothorax. In the setting of dual antiplatelet therapy and therapeutic anticoagulation and significant drop in hemoglobin a hemothorax is the likely/leading differential. Hematology service has been asked to see this patient to reconcile the competing issues i.e. ongoing hemo-thorax with drop in hemoglobin hematocrit in the setting of heparin-induced thrombocytopenia with a pulmonary embolism. Recommendations: 1. Left-sided hemothorax: She had been on dual antiplatelet therapy with aspirin Plavix and in addition to this was on Arixtra. It is not yet clear with specific blood vessel may have bled. Chest x-ray from the morning of 10/19 was reviewed, she continues to have near complete whiteout of the left hemithorax. From a clinical standpoint she does however appear to be improved, she feels more comfortable breathing, she is able to take an "Lynn "breaths. Her hemoglobin and hematocrit are also stable. 2. Recent history of heparin-induced thrombocytopenia with thrombosis (AKILAH): She will require resumption of therapeutic anticoagulation. At this point our choices are somewhat limited, therapeutic anticoagulation with IV Argatroban is a consideration given the short acting nature of this medication. A long-term outpatient option may be Pradaxa which is a direct thrombin inhibitor similar to Argatroban. As of 10/19/2018 I would advise holding off therapeutic anticoagulation given the acuity of the recent hemodynamic compromise and large-volume hemothorax.
[2018-10-19 08:11] LABS: Baso % (Auto) 0.6 % (0.0-2.0); Eos # (Auto) 0.1 th/mm3 (0.0-0.4); Eos % (Auto) 1.6 % (0.0-4.0); Hematocrit 26.8 % (35.0-46.0); Hemoglobin 9.4 gm/dL (11.6-15.3); Lymph % (Auto) 23.6 % (9.0-44.0); Mean Corpuscular HGB Conc 35.3 % (32.0-36.0); Mean Corpuscular Hemoglobin 30.2 pg (27.0-34.0); Mean Corpuscular Volume 85.5 fL (80.0-100.0); Mean Platelet Volume 7.3 fL (7.0-11.0); Mono # (Auto) 0.8 th/mm3 (0.0-0.9); Mono % (Auto) 9.2 % (0.0-8.0); Neut # (Auto) 5.5 th/mm3 (1.8-7.7); Platelet Count 232 th/mm3 (150-450); Red Blood Count 3.13 mil/mm3 (4.00-5.30); Red Cell Distribution Width 14.8 % (11.6-17.2); White Blood Count 8.5 th/mm3 (4.0-11.0)
[2018-10-19 08:32] LABS: Calcium 7.2 mg/dL (8.5-10.1); Carbon Dioxide 22.9 meq/L (21.0-32.0); Magnesium 1.9 mg/dL (1.5-2.5)
[2018-10-19 08:57] LABS: Albumin 2.5 g/dL (3.4-5.0); Calcium-Albumin Corrected 8.4 mg/dL (8.5-10.1)
[2018-10-19] MEDS: Sod Chloride 0.9% Inj 1,000 ML IV.CONT SCH ×2 (09:32→13:12)
[2018-10-19] MEDS: Pantoprazole Inj 40 MG Vial IV.PUSH SCH (09:32)
[2018-10-19] MEDS: Sertraline 50 MG Tablet PO SCH (09:32)
[2018-10-19] MEDS: Senna/Docusate Sodium 8.6/50 MG Tablet PO SCH ×2 (09:33→21:40)
[2018-10-19] MEDS: Azithromycin Inj 500 MG in Sodium Chlor 0.9% Inj 250 ML IV.SIG SCH (14:45)
[2018-10-19] MEDS ORDERED: Ketamine Inj 50 MG/5 ML Syringe IV.PUSH ONE (16:37)
--- NOTE | 2018-10-19 16:40 | P.PNCA ---
Subjective Interval history: Chest tube clotting this morning Breathing mildly better Medications and Allergies Active Medications: Active Medications Hydrocodone Bitart/Acetaminophen ([place] 5/325) 1 tab PO Q6H PRN PRN Reason: PAIN 1-10 Al Hydroxide/Mg Hydroxide (Milk Of [place]tr[place] Liq) 30 ml PO Q12H PRN PRN Reason: Mild Constipation Albuterol (Albuterol Neb (Prn)) 2.5 mg NEB Q2HR NEB PRN PRN Reason: SHORTNESS OF BREATH/WHEEZING Albuterol (Duoneb Neb (Goldy)) 1 ampul NEB Q4HR NEB [facility] Last Admin: 10/19/18 15:47 Dose: 1 ampul Aspirin (Ecotrin) 81 mg PO DAILY [facility] Last Admin: 10/19/18 09:32 Dose: 81 mg Bisacodyl (Dulcolax Supp) 10 mg RECTAL DAILY PRN PRN Reason: SEVERE CONSITIPATION Chlorhexidine Gluconate (Chlorhexidine 2% Cloth) 3 pack TOPICAL DAILY@0400 [facility] Stop: 10/23/18 03:59 Last Admin: 10/19/18 04:43 Dose: 3 pack Chlorhexidine Gluconate (Chlorhexidine 2% Cloth) 3 pack TOPICAL DAILY@0400 PRN PRN Reason: Extra cloth needed Stop: 10/23/18 03:59 Clopidogrel Bisulfate (Plavix) 75 mg PO DAILY [facility] Last Admin: 10/19/18 09:32 Dose: 75 mg Dextrose (D50w Vial) 50 ml IV.PUSH UNSCH PRN PRN Reason: PER HYPOGLYCEMIA PROTOCOL Furosemide (Lasix) 40 mg PO DAILY PRN PRN Reason: SEE LABEL COMMENTS Glucagon (Glucagon Inj) 1 mg OTHER PRN PRN PRN Reason: for Hypoglycemia Protocol Sodium Chloride (Ns Inj) 1,000 mls @ 42 mls/hr IV.CONT .[id number] [facility] Last Admin: 10/19/18 13:12 Dose: Not Given Piperacillin/Tazobactam/Dextrose (Zosyn 4.5 Gm Premix) 4.5 gm in 100 mls @ 200 mls/hr IV.SIG Q6H [facility] Last Infusion: 10/19/18 15:12 Dose: Infused Norepinephrine Bitartrate 8 mg (/ Dextrose) 250 mls @ 3.75 mls/hr IV.CONT TITRATE PRN; Protocol PRN Reason: See Protocol Last Titration: 10/18/18 10:56 Dose: 0 mcg/min, 0 mls/hr Argatroban 250 mg/ Sodium (Chloride) 250 mls @ 0 mls/hr IV.CONT TITRATE PRN; Protocol PRN Reason: Per Protocol Last Titration: 10/18/18 07:48 Dose: 0 mcg/kg/min, 0 mls/hr Azithromycin 500 mg/ Sodium (Chloride) 250 mls @ 250 mls/hr IV.SIG Q24H [facility] Last Infusion: 10/19/18 15:12 Dose: Infused Linezolid (Zyvox 600 Mg Premix) 300 mls @ 300 mls/hr IV.SIG Q12H [facility] Last Infusion: 10/19/18 06:43 Dose: Infused Insulin Human Regular (Novolin R Correctional Sugar Inj) 0 units SQ Q6HR [facility]; Protocol Last Admin: 10/19/18 13:11 Dose: 5 units Lactulose (Lactulose Liq) 30 ml PO DAILY PRN PRN Reason: SEVERE CONSITIPATION Morphine Sulfate (Morphine Inj) 4 mg IV.PUSH Q4H PRN PRN Reason: breakthrough pain Last Admin: 10/19/18 14:15 Dose: 4 mg Pantoprazole Sodium (Protonix Inj) 40 mg IV.PUSH DAILY [facility] Last Admin: 10/19/18 09:32 Dose: 40 mg Ranolazine (Ranexa) 500 mg PO Q12H [facility] Last Admin: 10/19/18 05:43 Dose: 500 mg Senna/Docusate Sodium (Jacqui-Colace) 1 tab PO BID [facility] Last Admin: 10/19/18 09:33 Dose: Not Given Sennosides (Senokot) 17.2 mg PO Q12H PRN PRN Reason: Moderate Constipation Sertraline HCl (Zoloft) 50 mg PO DAILY [facility] Last Admin: 10/19/18 09:32 Dose: 50 mg Sodium Chloride (Ns Flush) 2 ml IV.FLUSH BID [facility] Last Admin: 10/19/18 09:33 Dose: 2 ml Sodium Chloride (Ns Flush) 2 ml IV.FLUSH PRN PRN PRN Reason: FLUSH AFTER USING IV ACCESS Temazepam (Restoril) 7.5 mg PO HS [facility] Last Admin: 10/18/18 21:00 Dose: Not Given Terbutaline Sulfate (Brethine Inj) 1 mg SQ UNSCH PRN PRN Reason: For Extravasation Allergies Allergy/AdvReac Type Severity Reaction Status Date / Time heparin Allergy Severe HEPARIN-INDUCED Verified 10/17/18 09:15 THROMBOCYTOPENIA metoprolol Allergy Severe HALLUCINATI Verified 10/17/18 09:15 ONS famotidine Allergy Unknown RASH Verified 10/17/18 09:15 lisinopril Allergy Unknown Itching Verified 10/17/18 09:15 insulin detemir AdvReac Unknown Diarrhea Verified 10/17/18 09:15 Home Medications Medication Instructions Recorded Confirmed Type aspirin [Aspir-81] 81 mg PO DAILY 08/03/18 10/17/18 History atorvastatin 20 mg PO DAILY 08/03/18 10/17/18 History insulin glargine [Lantus U-100 38 unit SUB-Q DAILY 08/03/18 10/17/18 History Insulin] insulin lispro [Humalog U-100 30 unit SUB-Q TIDAC 08/03/18 10/17/18 History Insulin] methocarbamol 500 mg PO QID 08/03/18 10/17/18 History nitroglycerin 0.3 mg SUBLINGUAL Q5-15M PRN 08/03/18 10/17/18 History sertraline 50 mg PO DAILY 08/03/18 10/17/18 History temazepam 7.5 mg PO HS 08/03/18 10/17/18 History docusate sodium [DOK] 100 mg PO BID PRN 10/17/18 10/17/18 History Physical Exam Vital signs: Vital Signs 10/18/18 17:00 10/18/18 18:00 10/18/18 19:00 Temperature 98.5 F Pulse Rate 99 H 102 H 97 H Respiratory Rate 30 H 35 H 27 H Blood Pressure 107/71 105/70 101/68 Pulse Oximetry 93 L 94 L 92 L 10/18/18 20:00 10/18/18 20:09 10/18/18 21:00 Temperature 98.6 F Pulse Rate 97 H 102 H 98 H Respiratory Rate 26 H 20 25 H Blood Pressure 95/63 L 100/62 Pulse Oximetry 95 93 L 93 L 10/18/18 22:00 10/18/18 23:00 10/19/18 00:00 Temperature 98.9 F Pulse Rate 97 H 93 H 93 H Respiratory Rate 16 24 23 Blood Pressure 101/59 L 94/64 L 98/66 L Pulse Oximetry 95 94 L 95 10/19/18 00:07 10/19/18 01:00 10/19/18 02:00 Temperature Pulse Rate 97 H 92 H 91 H Respiratory Rate 14 24 21 Blood Pressure 101/67 93/60 L Pulse Oximetry 94 L 94 L 10/19/18 03:00 10/19/18 04:00 10/19/18 04:35 Temperature 98.8 F Pulse Rate 91 H 89 99 H Respiratory Rate 23 21 20 Blood Pressure 95/61 L 97/59 L Pulse Oximetry 95 95 10/19/18 05:00 10/19/18 06:00 10/19/18 08:00 Temperature 98.1 F Pulse Rate 92 H 93 H 89 Respiratory Rate 24 22 16 Blood Pressure 99/65 L 94/61 L 89/58 L Pulse Oximetry 95 94 L 95 10/19/18 09:00 10/19/18 11:00 10/19/18 15:00 Temperature Pulse Rate 88 89 96 H Respiratory Rate 24 20 26 H Blood Pressure Pulse Oximetry Intake & Output 10/18/18 10/19/18 10/19/18 18:59 06:59 18:59 Intake Total 3570 / 3570 1500 / 1500 1350 / 1350 Output Total 2100 / 2100 575 / 575 Balance 1470 / 1470 925 / 925 1350 / 1350 Weight 78.5 kg Intake: IV 1969 / 1969 1500 / 1500 1350 / 1350 NS Inj 1,000 ML @ 42 mls/hr IV. 1000 / 1000 1000 / 1000 1000 / 1000 CONT .[id number] [facility] Rx#:[id number] Azithromycin Inj 500 MG In NS 250 / 250 250 / 250 Inj 250 ML @ 250 mls/hr IV.SIG Q24H [facility] Rx#:[id number] Calcium Gluconate Inj 2 GM In 120 / 120 D5W Inj 100 ML @ 120 mls/hr IV. SIG ONCE ONE Rx#:[id number] Zyvox 600 mg Premix 300 ML @ 300 / 300 300 / 300 300 mls/hr IV.SIG Q12H [facility] Rx#: [id number] Zosyn 4.5 GM Premix 4.5 gm In 300 / 300 200 / 200 100 / 100 100 ml @ 200 mls/hr IV.SIG Q6H [facility] Rx#:[id number] Oral 0 / 0 0 / 0 Intake (Blood Product) Amt 1600 / 1600 Rbc As-3 Leukoreduced Unit 400 / 400 [id number] Rbc As-3 Leukoreduced Unit 400 / 400 [id number] Rbc As-3 Leukoreduced Unit 400 / 400 [id number] Rbc As-3 Leukoreduced Unit 400 / 400 [id number] Output: Urine Amount (Catheter) 1150 / 1150 450 / 450 Indwelling Urethral Catheter 1150 / 1150 450 / 450 Chest Tube Drainage 950 / 950 125 / 125 Left Mid-Axillary Chest 950 / 950 125 / 125 Other: # Bowel Movements 0 0 Narrative: General: Middle-aged female, laying in bed, appears to be acutely ill. She is awake, alert, she whispers answers because she is weak. HEENT: Head atraumatic normal cephalic, conjunctivae pale, sclerae anicteric, oral exam dry mucous membranes. Neck exam no cervical lymphadenopathy, she has a left-sided IJ triple lumen catheter. Respiratory: Breath sounds are minimally audible over the left hemithorax. Right hemithorax good breath sounds over the upper, middle and lower lung zones. Cardiovascular: Regular rate and rhythm, S1-S2 no obvious murmurs rubs gallops. Well-healing sternotomy incision noted. Abdominal: Protuberant abdomen, soft, no obvious tenderness, positive bowel sounds no palpable organ enlargement. Lower extremities no pretibial edema no calf tenderness. BAIL AGENT: No focal sensorimotor deficits. Skin: Nonfocal examination. Muscular skeletal: Adequate muscle mass, tone and strength. - Urinary Catheter Management Straight Cath placed during this visit: yes Reason for continuing: Acute urinary retention Insertion date: 10/18/18 Insertion time: 09:30 Indwelling Urethral Catheter Cath placed during this visit: yes Reason for continuing: Acute urinary retention Insertion date: 10/18/18 Insertion time: 09:30 Results 10/19/18 06:55 10/19/18 06:55 Cardiac Enzymes 10/17/18 10/18/18 Range/Units 19:26 04:00 AST 11 L (15-37) U/L Troponin I 0.10 H (0.02-0.05) ng/mL Coagulation 10/17/18 10/17/18 10/18/18 Range/Units 17:30 20:45 04:00 APTT 46.7 H D 50.4 H 55.1 H (23.4-31.7) sec CBC 10/18/18 10/18/18 10/19/18 Range/Units 04:00 12:00 06:55 WBC 7.7 8.5 (4.0-11.0) th/mm3 RBC 2.30 L 3.13 L (4.00-5.30) mil/mm3 Hgb 6.7 L* D 11.6 D 9.4 L D (11.6-15.3) gm/dL Hct 20.1 L* 32.8 L 26.8 L (35.0-46.0) % Plt Count 413 232 D (150-450) th/mm3 Neut # (Auto) 5.1 5.5 (1.8-7.7) th/mm3 Lymph # (Auto) 1.8 2.0 (1.0-4.8) th/mm3 [place] # (Auto) 0.7 0.8 (0.0-0.9) th/mm3 Eos # (Auto) 0.0 0.1 (0.0-0.4) th/mm3 Baso # (Auto) 0.0 0.0 (0.0-0.2) th/mm3 Comprehensive Metabolic Panel 10/18/18 10/19/18 Range/Units 04:00 06:55 Sodium 136 135 L (136-145) meq/L Potassium 4.5 4.0 (3.5-5.1) meq/L Chloride 106 105 (98-107) meq/L Carbon Dioxide 23.2 22.9 (21.0-32.0) meq/L BUN 14 7 (7-18) mg/dL Creatinine 1.07 H 0.85 (0.50-1.00) mg/dL Calcium 6.8 L* D 7.2 L* (8.5-10.1) mg/dL AST 11 L (15-37) U/L ALT 32 (10-53) U/L Alkaline Phosphatase 114 (45-117) U/L Total Protein 6.0 L D (6.4-8.2) g/dL Albumin 2.5 L 2.5 L (3.4-5.0) g/dL Intake and Output 1110/19/18 10/19/18 06:59 14:59 22:59 Intake Total 1500 / 1500 1000 / 1000 350 / 350 Output Total 575 / 575 Balance 925 / 925 1000 / 1000 350 / 350 Intake: IV 1500 / 1500 1000 / 1000 350 / 350 NS Inj 1,000 ML @ 42 mls/hr IV. 1000 / 1000 1000 / 1000 CONT .[id number] [facility] Rx#:[id number] Azithromycin Inj 500 MG In NS 250 / 250 Inj 250 ML @ 250 mls/hr IV.SIG Q24H [facility] Rx#:[id number] Zyvox 600 mg Premix 300 ML @ 300 / 300 300 mls/hr IV.SIG Q12H [facility] Rx#: [id number] Zosyn 4.5 GM Premix 4.5 gm In 200 / 200 100 / 100 100 ml @ 200 mls/hr IV.SIG Q6H [facility] Rx#:[id number] Oral 0 / 0 Output: Urine Amount (Catheter) 450 / 450 Indwelling Urethral Catheter 450 / 450 Chest Tube Drainage 125 / 125 Left Mid-Axillary Chest 125 / 125 Other: # Bowel Movements 0 Weight 78.5 kg - Imaging and Cardiology Imaging: Impressions Abdomen/Pelvis CT 10/18/18 05:22 CONCLUSION: 1. No retroperitoneal hemorrhage. No acute findings within the abdomen and pelvis. Mild anasarca. 2. High density material in the lower left chest tube which could represent a hemothorax. Chest X-Ray 10/18/18 06:00 CONCLUSION: Complete opacification of left hemithorax fluid and consolidation. Subsegmental opacity right lung base is stable. Left central line unchanged. Chest CT 10/18/18 06:40 CONCLUSION: 1. Development of complete opacification of the left hemithorax with complete atelectasis of the left lung. Complex left pleural fluid with high density material suggesting hemorrhage. 2. Positive for pulmonary embolic disease as noted on prior exam. Subsegmental consolidation right lung base. Left central line in superior vena cava. Chest X-Ray 10/18/18 08:49 CONCLUSION: Interval placement of a large bore chest tube on the left with removal of a large portion of the pleural effusion. Continued consolidation of most of the left lung. Chest X-Ray 10/19/18 00:00 CONCLUSION: Left chest tube and left central line without thorax. Near-complete opacification of the left hemithorax. Mild right basilar airspace disease. Assessment and Plan - Assessment (1) Hemothorax Code(s): J94.2 - Hemothorax Status: Acute (2) Elevated troponin Code(s): R74.8 - Abnormal levels of other serum enzymes Status: Acute (3) CAD (coronary artery disease), [place] coronary artery Code(s): I25.10 - Atherosclerotic heart disease of [place] coronary artery without angina pectoris Status: Chronic (4) S/P coronary artery bypass graft x 4 Code(s): Z95.1 - Presence of aortocoronary bypass graft Status: Chronic (5) Heparin induced thrombocytopenia (HIT) Code(s): D75.82 - Heparin induced thrombocytopenia (HIT) Status: Chronic (6) Pneumonia Code(s): J18.9 - Pneumonia, unspecified organism Status: Acute (7) Acute pulmonary embolism Code(s): I26.99 - Other pulmonary embolism without acute cor pulmonale Status : Acute - Plan 1) Hx of CAD, previous CABGx4 with acute graft closure due to HIT, s/p complex PCI Unfortunately with recent complex PCI would not stop ASA/Plavix due to high risk of stent thrombosis 2) Hemothorax Chest tube placed by critical care Plan for VATS this afternoon per nursing 3) Possible PNA Will have to see after left hemothorax is drained if truly PNA 4) Acute pulmonary embolism Argatroban stopped due to hemothorax 5) Minimal elevated troponins secondary to pulmonary embolism as well as recent events No acute coronary syndrome noted 6) Complex case Ultimately need to be on combination of anticoagulation/antiplatelet Once started on anticoagulation, consideration of stopping ASA to decrease overall bleeding risk
[2018-10-19] MEDS ORDERED: Bupivacaine PF 0.5% Inj 10 ML Vial ONE (17:32)
--- NOTE | 2018-10-19 17:34 | P.PNCV ---
- Note Subjective/Hospital Course: t 58-year-old female known to our service This patient presented to [facility] in early September with complaints of chest pain, she was found to have multivessel disease on cardiac catheterization. She was advised CABG, she underwent a four-vessel CABG on 09/29/2018. The same day she developed ST elevation VT with hyper acute thromboses of multiple grafts. That same night the patient required coronary artery stenting with multiple stents placed within the occluded coronary artery grafts. 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 She was initiated subsequently on Arixtra for management of hit. The patient also was on dual antiplatelet therapy with aspirin and Plavix. She was discharged home 1 week ago, she reports doing well at home up until the morning of 10/17/2018, she woke up at 4:30 AM with chest pain and difficulty breathing. She took 2 nitroglycerin about 10 minutes apart to help relieve the chest pain but this did not help. She subsequently called 911 close to 7 AM and was brought in to [facility] emergency department. CT angiogram of the thorax which revealed new right-sided pulmonary emboli ( small volume) and a new left-sided complicated pleural effusion. She was also noted to be hypotensive, she was initiated on IV fluid resuscitation and then required pressor support. She has been evaluated by cardiology, she was initiated on anticoagulation argatroban gtt , repeat ct chest should worsening left-sided pleural effusion which appears to be complicated. Over the course of the past 24 hours her hemoglobin has dropped down from 9.9 g/dL at presentation down to 6.6 g/dL she has received total of 4 units PRBC 10/18 pt require large bore left chest tube placed by [facility] , # 36 mauritanian 700 mL dark sanguinous output. concern is for persistent clots plan is to repeat CT chest on 10/19 for left VATS evacuation of hemothorax today / multiple clots in chest tube Objective: Vital Signs - 24 hr 10/18/18 18:00 10/18/18 19:00 10/18/18 20:00 Temperature 98.6 F Pulse Rate 102 H 97 H 97 H Respiratory Rate 35 H 27 H 26 H Blood Pressure 105/70 101/68 95/63 L Pulse Oximetry 94 L 92 L 95 10/18/18 20:09 10/18/18 21:00 10/18/18 22:00 Temperature Pulse Rate 102 H 98 H 97 H Respiratory Rate 20 25 H 16 Blood Pressure 100/62 101/59 L Pulse Oximetry 93 L 93 L 95 10/18/18 23:00 10/19/18 00:00 10/19/18 00:07 Temperature 98.9 F Pulse Rate 93 H 93 H 97 H Respiratory Rate 24 23 14 Blood Pressure 94/64 L 98/66 L Pulse Oximetry 94 L 95 10/19/18 01:00 10/19/18 02:00 10/19/18 03:00 Temperature Pulse Rate 92 H 91 H 91 H Respiratory Rate 24 21 23 Blood Pressure 101/67 93/60 L 95/61 L Pulse Oximetry 94 L 94 L 95 10/19/18 04:00 10/19/18 04:35 10/19/18 05:00 Temperature 98.8 F Pulse Rate 89 99 H 92 H Respiratory Rate 21 20 24 Blood Pressure 97/59 L 99/65 L Pulse Oximetry 95 95 10/19/18 06:00 10/19/18 08:00 10/19/18 09:00 Temperature 98.1 F Pulse Rate 93 H 89 88 Respiratory Rate 22 16 24 Blood Pressure 94/61 L 89/58 L Pulse Oximetry 94 L 95 10/19/18 11:00 10/19/18 15:00 Temperature Pulse Rate 89 96 H Respiratory Rate 20 26 H Blood Pressure Pulse Oximetry GENERAL: A&O x 3 SKIN: Warm and dry. sternal incision intact and well approximated HEAD: Normocephalic. EYES: No scleral icterus. No injection or drainage. NECK: Supple, trachea midline. No JVD or lymphadenopathy. CARDIOVASCULAR: sinus tach Regular rate and rhythm without murmurs, gallops, or rubs. RESPIRATORY: Breath sounds equal bilaterally. No accessory muscle use. diminished in bases L>R chest tube to wall suction GASTROINTESTINAL: Abdomen soft, non-tender, nondistended. MUSCULOSKELETAL: No cyanosis, or edema. BACK: Nontender without obvious deformity. No CVA tenderness. Labs: Laboratory Results - last 12 hr 10/19/18 10/19/18 10/19/18 05:30 06:55 06:55 WBC 8.5 RBC 3.13 L Hgb 9.4 L D Hct 26.8 L MCV 85.5 MCH 30.2 MCHC 35.3 RDW 14.8 Plt Count 232 D MPV 7.3 Neut % (Auto) 65.0 Lymph % (Auto) 23.6 [place] % (Auto) 9.2 H Eos % (Auto) 1.6 Baso % (Auto) 0.6 Neut # (Auto) 5.5 Lymph # (Auto) 2.0 [place] # (Auto) 0.8 Eos # (Auto) 0.1 Baso # (Auto) 0.0 WBC Differential . Differential Comment Auto diff final Sodium 135 L Potassium 4.0 Chloride 105 Carbon Dioxide 22.9 Anion Gap 7 BUN 7 Creatinine 0.85 Estimated GFR 84 L POC Glucose 193 H Random Glucose 244 H Calcium 7.2 L* Calcium Adj for Albumin 8.4 L Phosphorus 2.0 L Magnesium 1.9 Albumin 2.5 L Prealbumin 10/19/18 10/19/18 06:55 12:30 WBC RBC Hgb Hct MCV MCH MCHC RDW Plt Count MPV Neut % (Auto) Lymph % (Auto) [place] % (Auto) Eos % (Auto) Baso % (Auto) Neut # (Auto) Lymph # (Auto) [place] # (Auto) Eos # (Auto) Baso # (Auto) WBC Differential Differential Comment Sodium Potassium Chloride Carbon Dioxide Anion Gap BUN Creatinine Estimated GFR POC Glucose 269 H Random Glucose Calcium Calcium Adj for Albumin Phosphorus Magnesium Albumin Prealbumin 12 L Result Diagrams: 10/19/18 06:55 10/19/18 06:55 - Plan (2) Diabetes mellitus for left VATS today (2) Diabetes mellitus Qualifiers: Diabetes mellitus complication status: with circulatory complication
[2018-10-19] MEDS ORDERED: Post-op Orders (for Pharmacy) OTHER STA (19:50)
--- NOTE | 2018-10-19 19:59 | P.OP ---
Date of procedure: 10/19/18 Anesthesia: CHRISTINAA Surgeon: Ernesto Campos MD Operation and Findings: PREOPERATIVE DIAGNOSES 1. Left hemothorax 2. Coronary Artery Disease Status Post CABG 3. Anti-Heparin Antibodies 4. Pulmonary Embolus 5. Right Ventricular Thrombus 6. Pneumonia POSTOPERATIVE DIAGNOSES Same SURGICAL PROCEDURE 1. Left video-Assisted Thoracoscopic Surgery (VATS). 2. Evacuation of Hemothorax 3. Intercostal Nerve Block SURGEON Ernesto Campos MD MALTER OPERATOR KALIA Camara ANESTHESIA General double lumen endotracheal. CARDIOGRAPHER Oma Wong, INSPECTOR SCALES Carlos Chirinos MD PREPARATION ChloraPrep. COUNTS Needle, sponge, and instrument counts are correct. DRAINS Two 36 Fr Chest tubes COMPLICATIONS None. INDICATIONS The patient is a 58yo presenting with hypotension and hypoxia with associated left hemothorax. She had a chest tube placed which is not functioning due to mechanical clot obstruction. The patient is being brought to the operating room for thoracoscopic evacuation of hemothorax. DESCRIPTION OF PROCEDURE The patient was brought to the operating room and placed supine on the OR table. Following the induction of adequate general double lumen endotracheal anesthesia and placement of appropriate monitoring devices, the patient was placed in the right lateral decubitus position. The left chest and surrounding areas were then prepped and draped in a standard sterile fashion. A 5 mm camera port was introduced into the 8th intercostal space in mid axillary line, and the camera introduced. A second 5 mm port was then placed anteriorly under direct visual guidance. The left hemithorax was explored. There was copious clot and blood in the left chest. This was evacuated with manual extraction as well as with suction armed security professional. Approximately 900 mL's of blood was evacuated and significant amount of clot material as well. Irrigation was performed with 2 L of sterile saline. The anterior port was removed and a 36 Fr chest tube was placed. Similarly a 36 Uz[place] chest tube was placed in the posterior port site as well. These were maintained in place with a nonabsorbable sutures. Both of the entry sites and intercostal nerves were injected with 0.5% Marcaine. The chest tubes were attached to a suction device, and sterile dressing applied. The patient tolerated the procedure well and was transferred to the recovery room in stable but critical condition.
[2018-10-19] MEDS ORDERED: fentaNYL Citrate Inj 100 MCG/2 ML Ampul ONE (20:54)
[2018-10-19] MEDS ORDERED: Propofol 1000 mg/100 ml Inj 1,000 MG/100 ML BOTTLE IV.CONT PRN (21:29)
--- NOTE | 2018-10-19 21:41 | XR ---
EXAM DATE: 10/19/2018 9:37 PM EST AGE/SEX: 58 years / Female INDICATIONS: Post op thoracotomy CLINICAL DATA: This is the patient's initial encounter. Patient reports that signs and symptoms have been present for 1 day and indicates a pain score of Nonresponsive. MEDICAL/SURGICAL HISTORY: . Diabetes. Renal insufficiency, chronic. Myocardial infarction. Hys terectomy. COMPARISON: [facility], CHEST 1V SINGLE AP, 10/19/2018. . FINDINGS: Endotracheal tube tip is present couple of centimeters above the mis. Left neck central line desce nds into SVC. There are several left thoracostomy tubes present. There is been evacuation of signific ant fluid from the left chest. There is some residual pleural fluid or thickening and diffuse parench ymal opacity. Mild perihilar parenchymal opacities present on the contralateral right side. CONCLUSION: Postoperative chest appearance as above with satisfactory positioning of support tubes and lines Electronically signed by: Dave Garrett MD 10/19/2018 9:40 PM EST
[2018-10-19 22:24] LABS: ABG Base Excess -4.8 mmol/L (-2-2); ABG PCO2 45 mmHg (38-42); ABG PO2 89 mmHG (61-120)
[2018-10-20 00:08] LABS: Hematocrit 28.9 % (35.0-46.0); Mean Corpuscular HGB Conc 34.6 % (32.0-36.0); Mean Corpuscular Hemoglobin 29.8 pg (27.0-34.0); Mean Corpuscular Volume 86.1 fL (80.0-100.0); Platelet Count 256 th/mm3 (150-450); Red Blood Count 3.35 mil/mm3 (4.00-5.30); White Blood Count 10.6 th/mm3 (4.0-11.0)
[2018-10-20] MEDS: Chlorhexidine Gluconate 2% 1 Pack (2 Cloths) TOPICAL SCH (04:43)
[2018-10-20 05:15] LABS: Baso % (Auto) 0.1 % (0.0-2.0); Hematocrit 28.1 % (35.0-46.0); Hemoglobin 9.7 gm/dL (11.6-15.3); Lymph # (Auto) 0.7 th/mm3 (1.0-4.8); Lymph % (Auto) 8.3 % (9.0-44.0); Mean Corpuscular HGB Conc 34.6 % (32.0-36.0); Mean Corpuscular Hemoglobin 29.9 pg (27.0-34.0); Mean Corpuscular Volume 86.3 fL (80.0-100.0); Mean Platelet Volume 7.6 fL (7.0-11.0); Mono # (Auto) 0.3 th/mm3 (0.0-0.9); Mono % (Auto) 3.8 % (0.0-8.0); Neut # (Auto) 7.5 th/mm3 (1.8-7.7); Neut % (Auto) 87.8 % (16.0-70.0); Platelet Count 243 th/mm3 (150-450); Red Blood Count 3.26 mil/mm3 (4.00-5.30); White Blood Count 8.6 th/mm3 (4.0-11.0)
--- NOTE | 2018-10-20 05:23 | XR ---
EXAM DATE: 10/20/2018 4:40 AM EST AGE/SEX: 58 years / Female INDICATIONS: Shortness of breath, possible pulmonary disease. CLINICAL DATA: This is the patient's subsequent encounter. Patient reports that signs and symptoms h ave been present for 3 days and indicates a pain score of Nonresponsive. MEDICAL/SURGICAL HISTORY: Diabetes. Renal insufficiency, chronic. Myocardial infarction. Hyst erectomy. Thoracotomy. COMPARISON: [facility], CHEST 1V SINGLE AP, 10/19/2018. . FINDINGS: Endotracheal tube in good position. Left central line in superior vena cava. 3 left chest tubes witho ut pneumothorax. Consolidation and loculated fluid in left hemithorax unchanged. Patchy right airspac e disease also relatively stable. CONCLUSION: Support apparatus unchanged. Stable left greater than right airspace disease and loculated left pleur al fluid. Electronically signed by: Marcel Eric MD 10/20/2018 5:21 AM EST
[2018-10-20 05:33] LABS: Calcium 7.5 mg/dL (8.5-10.1); Carbon Dioxide 21.8 meq/L (21.0-32.0); Magnesium 2.2 mg/dL (1.5-2.5); Phosphorus 2.7 mg/dL (2.5-4.9); Potassium 4.7 meq/L (3.5-5.1)
[2018-10-20] MEDS: Ranolazine 500 MG 12HR ER Tablet PO SCH ×2 (05:57→17:15)
[2018-10-20] MEDS: Insulin NovoLIN Regular Correctional Sugar Inj SQ SCH ×3 (05:57→17:18)
[2018-10-20] MEDS: Piperacil/Tazo 4.5 GM Premix 4.5 GM/100 ML BAG IV.SIG SCH ×4 (05:57→17:14)
--- NOTE | 2018-10-20 07:13 | P.PNONC ---
Subjective Interval history: Patient seen and examined, vital signs, labs and events over the past 24 hours reviewed. On 10/19/2018 the patient underwent VATS with evacuation of left hemithorax hemothorax, she is now intubated and has [address] Operative report was reviewed, active bleeding was not mentioned in intraoperative findings. Patient remains on aspirin and Plavix. She is not currently on therapeutic anticoagulation. This morning she is arousable, she is moving her upper and lower extremities spontaneously despite being intubated. Objective Vital Signs/Intake & Output: Vital Signs 10/19/18 08:00 10/19/18 09:00 10/19/18 11:00 Temperature 98.1 F Pulse Rate 90 88 89 Respiratory Rate 16 24 20 Blood Pressure 89/58 L Pulse Oximetry 95 10/19/18 12:00 10/19/18 15:00 10/19/18 16:00 Temperature 98.1 F 98.3 F Pulse Rate 88 96 H 97 H Respiratory Rate 21 26 H 29 H Blood Pressure 97/66 L 96/62 L Pulse Oximetry 97 93 L 10/19/18 17:00 10/19/18 21:00 10/19/18 21:45 Temperature 99.1 F Pulse Rate 94 H 101 H Respiratory Rate 14 14 Blood Pressure 100/61 Pulse Oximetry 97 96 10/19/18 23:24 10/20/18 00:00 10/20/18 00:33 Temperature 98.7 F Pulse Rate 95 H 93 H Respiratory Rate 14 14 14 Blood Pressure Pulse Oximetry 98 99 10/20/18 03:39 10/20/18 04:00 Temperature 98.6 F Pulse Rate 77 93 H Respiratory Rate 14 14 Blood Pressure Pulse Oximetry 100 100 Intake & Output 10/19/18 10/20/18 10/20/18 18:59 06:59 18:59 Intake Total 1450 / 1450 1120 / 1120 Output Total 1132 / 1132 Balance 1450 / 1450 -12 / -12 Weight 77.5 kg Intake: IV 1450 / 1450 520 / 520 NS Inj 1,000 ML @ 42 mls/hr IV. 1000 / 1000 CONT .[id number] ESTELLE Rx#:[id number] Azithromycin Inj 500 MG In NS 250 / 250 Inj 250 ML @ 250 mls/hr IV.SIG Q24H ESTELLE Rx#:[id number] Zyvox 600 mg Premix 300 ML @ 320 / 320 300 mls/hr IV.SIG Q12H ESTELLE Rx#: [id number] Zosyn 4.5 GM Premix 4.5 gm In 200 / 200 200 / 200 100 ml @ 200 mls/hr IV.SIG Q6H ESTELLE Rx#:[id number] Oral 0 / 0 Anesthesia Amount 600 / 600 Output: Estimated Blood Loss 200 / 200 Urine Amount (Catheter) 800 / 800 Indwelling Urethral Catheter 800 / 800 Chest Tube Drainage 132 / 132 #1Y and #2Y Left Mid-Axillary 82 / 82 Chest Y Connected Left Mid-Axillary Chest 50 / 50 Other: # Bowel Movements 0 Result Diagrams: 10/20/18 04:55 10/20/18 04:55 Laboratory Results: Laboratory Results - last 24 hr 10/19/18 10/19/18 10/19/18 06:55 06:55 06:55 WBC 8.5 RBC 3.13 L Hgb 9.4 L D Hct 26.8 L MCV 85.5 MCH 30.2 MCHC 35.3 RDW 14.8 Plt Count 232 D MPV 7.3 Neut % (Auto) 65.0 Lymph % (Auto) 23.6 [place] % (Auto) 9.2 H Eos % (Auto) 1.6 Baso % (Auto) 0.6 Neut # (Auto) 5.5 Lymph # (Auto) 2.0 [place] # (Auto) 0.8 Eos # (Auto) 0.1 Baso # (Auto) 0.0 WBC Differential . Differential Comment Auto diff final Puncture Site Patient Temperature O2 Saturation ABG pH ABG pCO2 ABG pO2 ABG HCO3 ABG O2 Content ABG Base Excess ABG Methemoglobin Gavino Test Hemoglobin Carboxyhemoglobin O2 Delivery Device Vent Setting Inspired O2 Critical Value Sodium 135 L Potassium 4.0 Chloride 105 Carbon Dioxide 22.9 Anion Gap 7 BUN 7 Creatinine 0.85 Estimated GFR 84 L POC Glucose Random Glucose 244 H Calcium 7.2 L* Calcium Adj for Albumin 8.4 L Phosphorus 2.0 L Magnesium 1.9 Albumin 2.5 L Prealbumin 12 L MTS Gel Crossmatch 10/19/18 10/19/18 10/19/18 12:30 18:29 22:10 WBC RBC Hgb Hct MCV MCH MCHC RDW Plt Count MPV Neut % (Auto) Lymph % (Auto) [place] % (Auto) Eos % (Auto) Baso % (Auto) Neut # (Auto) Lymph # (Auto) [place] # (Auto) Eos # (Auto) Baso # (Auto) WBC Differential Differential Comment Puncture Site Art line Patient Temperature 98.6 O2 Saturation 93 ABG pH 7.28 L* ABG pCO2 45 H ABG pO2 89 ABG HCO3 21 L ABG O2 Content 13.5 ABG Base Excess -4.8 L ABG Methemoglobin 1.7 Gavino Test Present Hemoglobin 10.3 L Carboxyhemoglobin 1.3 O2 Delivery Device Ventilator Vent Setting Prvc/ ac Inspired O2 100 Critical Value Yes Sodium Potassium Chloride Carbon Dioxide Anion Gap BUN Creatinine Estimated GFR POC Glucose 269 H Random Glucose Calcium Calcium Adj for Albumin Phosphorus Magnesium Albumin Prealbumin MTS Gel Crossmatch See Detail 10/19/18 10/19/18 10/20/18 23:41 23:55 04:52 WBC 10.6 RBC 3.35 L Hgb 10.0 L Hct 28.9 L MCV 86.1 MCH 29.8 MCHC 34.6 RDW 15.0 Plt Count 256 MPV 7.0 Neut % (Auto) Lymph % (Auto) [place] % (Auto) Eos % (Auto) Baso % (Auto) Neut # (Auto) Lymph # (Auto) [place] # (Auto) Eos # (Auto) Baso # (Auto) WBC Differential Differential Comment Puncture Site Patient Temperature O2 Saturation ABG pH ABG pCO2 ABG pO2 ABG HCO3 ABG O2 Content ABG Base Excess ABG Methemoglobin Gavino Test Hemoglobin Carboxyhemoglobin O2 Delivery Device Vent Setting Inspired O2 Critical Value Sodium Potassium Chloride Carbon Dioxide Anion Gap BUN Creatinine Estimated GFR POC Glucose 302 H 311 H Random Glucose Calcium Calcium Adj for Albumin Phosphorus Magnesium Albumin Prealbumin MTS Gel Crossmatch 10/20/18 10/20/18 04:55 04:55 WBC 8.6 RBC 3.26 L Hgb 9.7 L Hct 28.1 L MCV 86.3 MCH 29.9 MCHC 34.6 RDW 15.0 Plt Count 243 MPV 7.6 Neut % (Auto) 87.8 H Lymph % (Auto) 8.3 L [place] % (Auto) 3.8 Eos % (Auto) 0.0 Baso % (Auto) 0.1 Neut # (Auto) 7.5 Lymph # (Auto) 0.7 L [place] # (Auto) 0.3 Eos # (Auto) 0.0 Baso # (Auto) 0.0 WBC Differential . Differential Comment Auto diff final Puncture Site Patient Temperature O2 Saturation ABG pH ABG pCO2 ABG pO2 ABG HCO3 ABG O2 Content ABG Base Excess ABG Methemoglobin Gavino Test Hemoglobin Carboxyhemoglobin O2 Delivery Device Vent Setting Inspired O2 Critical Value Sodium 134 L Potassium 4.7 Chloride 104 Carbon Dioxide 21.8 Anion Gap 8 BUN 10 Creatinine 0.92 Estimated GFR 76 L POC Glucose Random Glucose 305 H Calcium 7.5 L Calcium Adj for Albumin Phosphorus 2.7 Magnesium 2.2 Albumin Prealbumin MTS Gel Crossmatch Culture Results: Microbiology 10/18/18 09:30 Urine Culture - Preliminary Catheterized Urine No growth in 24 hours 10/17/18 22:45 Urine Culture - Preliminary Catheterized Urine No growth in 24 hours 10/17/18 09:45 Aerobic Blood Culture - Preliminary Blood - Peripheral No growth in 2 days Anaerobic Blood Culture - Preliminary No growth in 2 days 10/17/18 09:35 Aerobic Blood Culture - Preliminary Blood - Peripheral No growth in 2 days Anaerobic Blood Culture - Preliminary No growth in 2 days Imaging Studies: Impressions Chest X-Ray 10/19/18 19:50 CONCLUSION: Postoperative chest appearance as above with satisfactory positioning of support tubes and lines Chest X-Ray 10/20/18 05:00 CONCLUSION: Support apparatus unchanged. Stable left greater than right airspace disease and loculated left pleural fluid. Medications: Active Medications Generic Name Dose Route Start Last Admin Trade Name Freq PRN Reason Stop Dose Admin Acetaminophen 1,000 mg 10/19/18 20:00 10/20/18 02:32 Ofirmev Inj IV.SIG 10/20/18 14:01 1,000 mg Q6H ESTELLE Administration Albuterol 1 ampul 10/17/18 12:00 10/20/18 03:39 Duoneb Neb (Estelle) NEB 1 ampul Q4HR NEB ESTELLE Administration Aspirin 81 mg 10/18/18 09:00 10/19/18 09:32 Ecotrin PO 81 mg DAILY ESTELLE Administration Chlorhexidine Gluconate 3 pack 10/18/18 04:00 10/20/18 04:43 Chlorhexidine 2% Cloth TOPICAL 10/23/18 03:59 3 pack DAILY@0400 ESTELLE Administration Clopidogrel Bisulfate 75 mg 10/18/18 09:00 10/19/18 09:32 Plavix PO 75 mg DAILY ESTELLE Administration Sodium Chloride 1,000 mls @ 42 mls/hr 10/17/18 10:45 10/19/18 13:12 Ns Inj IV.CONT Not Given .[id number] ESTELLE Piperacillin/Tazobactam/Dextrose 4.5 gm in 100 mls @ 200 mls/hr 10/17/18 12: 00 10/20/18 06:33 Zosyn 4.5 Gm Premix IV.SIG Infused Q6H ESTELLE Infusion Norepinephrine Bitartrate 8 mg 250 mls @ 3.75 mls/hr 10/17/18 12:00 10/18/18 10:56 / Dextrose IV.CONT 0 mcg/min TITRATE PRN 0 mls/hr See Protocol Titration Protocol 2 MCG/MIN Azithromycin 500 mg/ Sodium 250 mls @ 250 mls/hr 10/18/18 14:00 10/19/18 15: 12 Chloride IV.SIG Infused Q24H ESTELLE Infusion Linezolid 300 mls @ 300 mls/hr 10/17/18 17:00 10/20/18 06:00 Zyvox 600 Mg Premix IV.SIG Infused Q12H ESTELLE Infusion Propofol 1,000 mg in 100 mls @ 2.355 mls/hr 10/19/18 21:29 10/20/18 02:15 Diprivan 1000 Mg/100 Ml Inj IV.CONT 15 mcg/kg/min TITRATE PRN 7.07 mls/hr Per Protocol Titration Protocol 5 MCG/KG/MIN Insulin Human Regular 0 units 10/17/18 18:00 10/20/18 05:57 Novolin R Correctional Sugar Inj SQ 7 units Q6HR ESTELLE Administration Protocol Morphine Sulfate 4 mg 10/17/18 21:39 10/19/18 23:10 Morphine Inj IV.PUSH 4 mg Q4H PRN Administration breakthrough pain Pantoprazole Sodium 40 mg 10/18/18 09:00 10/19/18 09:32 Protonix Inj IV.PUSH 40 mg DAILY ESTELLE Administration Ranolazine 500 mg 10/17/18 18:00 10/20/18 05:57 Ranexa PO Not Given Q12H ESTELLE Senna/Docusate Sodium 1 tab 10/17/18 21:00 10/19/18 21:40 Jacqui-Colace PO Not Given BID ESTELLE Sertraline HCl 50 mg 10/18/18 09:00 10/19/18 09:32 Zoloft PO 50 mg DAILY ESTELLE Administration Sodium Chloride 2 ml 10/17/18 21:00 10/19/18 21:40 Ns Flush IV.FLUSH 2 ml BID ESTELLE Administration Temazepam 7.5 mg 10/17/18 21:00 10/19/18 21:00 Restoril PO Not Given HS ESTELLE Objective Remarks: General: Middle-aged female, intubated, sedated, critically ill-appearing. She is arousable and responds when spoken to. HEENT: Head atraumatic normal cephalic, conjunctivae pale, sclerae anicteric, oral exam dry mucous membranes. Neck exam no cervical lymphadenopathy, she has a left-sided IJ triple lumen catheter. Respiratory: Good air movement over the right hemithorax, decreased breath sounds over the left hemithorax, breath sounds are improved when compared to exam performed on 10/19/2018. 2 chest [address] are in place, these are draining serosanguineous fluid. Chest: 2 left-sided large caliber chest tubes in the left hemithorax. Cardiovascular: Regular rate and rhythm, S1-S2 no obvious murmurs rubs gallops. Well-healing sternotomy incision noted. Abdominal: Protuberant abdomen, soft, no obvious tenderness, positive bowel sounds no palpable organ enlargement. Lower extremities no pretibial edema no calf tenderness. 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 Skin: Nonfocal examination. Muscular skeletal: Adequate muscle mass, tone and strength. Assessment/Plan - Plan Ms. Lira is a 58-year-old female with multiple medical comorbid conditions including long-standing history of diabetes, chronic kidney disease, coronary artery disease, recent CABG with hyperacute thromboses of the grafts. The hyper acute thrombosis was attributed to an underlying heparin-induced thrombocytopenia with thrombosis (AKILAH). The patient had been on therapeutic anticoagulation with Arixtra in combination with dual antiplatelet therapy with Plavix and aspirin. She was discharged from this facility less than 1 week ago to the outpatient setting, she woke up yesterday morning with complaints of chest pain and difficulty breathing, she was also noted to have low blood pressure. Imaging studies indicate a small volume right-sided pulmonary embolism associated with complicated/loculated left-sided pleural effusion concerning for hemothorax. In the setting of dual antiplatelet therapy and therapeutic anticoagulation and significant drop in hemoglobin a hemothorax is the likely/leading differential. Hematology service has been asked to see this patient to reconcile the competing issues i.e. ongoing hemo-thorax with drop in hemoglobin hematocrit in the setting of heparin-induced thrombocytopenia with a pulmonary embolism. Recommendations: 1. Left-sided hemothorax: Underwent video-assisted thoracoscopic surgery (VATS ) on 10/19/2018. Blood and clots amounting to approximately 900 cc were evacuated. There was no suggestion of active/ongoing bleeding intraoperatively. Patient presently with 2 chest tubes, these are draining serosanguineous fluid. 2. Recent history of heparin-induced thrombocytopenia with thrombosis (AKILAH): She will require resumption of therapeutic anticoagulation at some point once her clinical condition allows. At this point our choices are somewhat limited, therapeutic anticoagulation with IV Argatroban is a consideration given the short acting nature of this medication. A long-term outpatient option may be Pradaxa which is an oral direct thrombin inhibitor with a similar mechanism of action to argatroban.
[2018-10-20] MEDS: Pantoprazole Inj 40 MG Vial IV.PUSH SCH (09:22)
[2018-10-20] MEDS: Senna/Docusate Sodium 8.6/50 MG Tablet PO SCH ×2 (09:22→20:50)
--- NOTE | 2018-10-20 09:55 | P.DIET ---
Nutritional Evaluation Type of nutrition evaluation: initial Nutrition consult regarding: Diet Evaluation Screening comments: 10/20 NPO alert x3 days Objective - Diagnosis sepsis, pneumonia, left pleural effusion - Objective Body Mass Index: 31.3 % IBW: 155 (IBW = 110lb) Body Weight Used for Calculations: IBW Energy Needs - Lower Range (kCal/kg): 25 Energy Needs - Upper Range (kCal/kg): 30 Lower Limit kCal/kg (kCals): 1,250 Upper Limit kCal/kg (kCals): 1,500 Lower Limit Protein Factor (Grams per Kg): 1.0 Upper Limit Protein Factor (Grams per Kg): 1.2 Lower Protein Needs (Protein): 50 Upper Protein Needs (Protein): 60 Dietitian Reviewed in Medical Record: Curent medications, Intake & Output, Labs , Medical history Diet Order: NPO Objective Comments: PMH: chest pain, chronic renal insufficiency stage II, coronary artery disease. DM, CO Meds: propofol Labs: GFR 76, POC glucose 193 302 311 Assessment Assessment: Pt currently at nutritional risk r/t being NPO for x3 days. Pt currently intubated and sedated w/ propofol. Pt s/p left VATS evacuation of hemothorax, intercostal nerve block and remains NPO. Wt noted, CBW = 77.5kg. Labs reviewed, consult RD as necessary. Additional recs to follow r/t medical course. Recommendations: 1. Consult RD as necessary 2. Additional recs to follow r/t medical course Dietitian to Monitor: Lab values, Glucose level, Intake & Output, PO Intake, Medical course
[2018-10-20 11:31] LABS: ABG Base Excess -3.7 mmol/L (-2-2); ABG PCO2 33 mmHg (38-42); ABG PO2 138 mmHG (61-120)
[2018-10-20] MEDS: Sertraline 50 MG Tablet PO SCH (12:36)
[2018-10-20] MEDS: Morphine Inj 4 MG/ML Vial IV.PUSH PRN ×3 (12:36→20:50)
[2018-10-20] MEDS: Sod Chloride 0.9% Inj 1,000 ML IV.CONT SCH (12:55)
[2018-10-20] MEDS: Azithromycin Inj 500 MG in Sodium Chlor 0.9% Inj 250 ML IV.SIG SCH (14:09)
--- NOTE | 2018-10-20 17:29 | P.PNCC ---
Subjective Subjective Remarks/Hospital Course: Hospital Course: Patient is a 58-year-old female with history of coronary artery disease, type 2 diabetes, who underwent off-pump CABG x 4 09/29/[address] Campos. Intraoperatively she had significant ST elevations, emergently taken to [employer] [facility] by by Dr. Melissa, found to have completely occluded grafts. Patient underwent MAXWELL to OM1, LAD. balloon angiopasty to OM2. Patient had a complicated course and was diagnosed with heparin-induced thrombocytopenia. A follow-up echo on 10/03/2018 showed EF 50-55%. Patient was eventually discharged on 10/10/2018 with a prescription for Arixtra however next day she had to be admitted for 1 day for as pharmacy did not have Arixtra. Arixtra was arranged and patient was discharged again on 10/11/2018. Today she presented to the emergency department for chest pain and shortness of breath. For systolic blood pressure in the 80s patient received IV fluid bolus by EMS. Chest x-ray showed extensive left-sided infiltrate/effusion. Presuming pneumonia and septic shock, patient received cefepime and azithromycin in the ED. Lactic acid was 2.1. Critical care was contacted for admission as after 2 L fluid boluses patient remained hypotensive I discussed with Dr. Kearns, recommended additional 1 more liter fluid bolus, and start Levophed if patient remains hypotensive. I also recommended stat CT Chest PE protocol. This showed pulmonary embolism in right lower lobe segmental and subsegmental branches. Also there was extensive consolidative change in the left perihilar region, left lung base, and also large mixed density loculated and nonloculated pleural fluid with associated pleural thickening. I have discussed the case with Dr. Campos cardiothoracic surgery, Dr. Melissa, cardiology and Dr. Curry hematology oncology. Patient will be admitted to ICU and I will discontinue Arixtra and start on Argatroban IV. I evaluated the patient in the ICU. She appears to be in moderate distress hypotensive currently on 5 mcg/min of Levophed. She had received total 3 L normal saline boluses. I will place her on Argatroban as above. A stat 2D echo prelim did not reveal any evidence of RV dysfunction. Hypotension is secondary to his severe sepsis and septic shock not related to PE. No indication for TPA. Pancultured continue broad-spectrum antibiotic with Zosyn, Zyvox and azithromycin. Because of the loculation and pleural thickening involving the effusion, once clinically more stable patient may need decortication procedure Subjective: 10/18: hgb dropped acutely to 6.6 from 9.9 overnight. patient with worsening dyspnea. taken emergently down to CT for repeat chest/abd/pelvis. CT chest with enlarging hemothorax. discussed case with Dr. Campos, at his request, placed 36Fr chest tube with 1L bloody output. dyspnea improving. discussed extensively with Dr. Campos: plan to wait and watch chest tube output for 48h and repeat CT chest. discussed with Dr. Melissa: needs dual antiplatelet therapy to prevent in-stent thrombosis. risky to hold argatroban, but will be forced to at least for the next 48h given life-threatening bleeding. discussed with Dr. Curry. Discussed extensively with all family members and explained current situation. patient endorses SOB. 10/19: multiple clots in chest tube. CXR again with whiteout of the left lung field. discussed with Dr. Campos- he will take to OR for left VATS washout and hematoma evacuation. discussed extensively with patient and family. hgb 11.6-> 9.4. off vasopressors. 10/20: taken to OR yesterday for washout and evacuation of hematoma. today, CXR significantly improved. patient remained intubated, but weaned and extubated today after she passed SBT. Objective Vital Signs / I&O: Vital Signs 10/19/18 21:00 10/19/18 21:45 10/19/18 23:24 Temperature 37.3 C Pulse Rate 94 H 101 H 95 H Respiratory Rate 14 14 14 Pulse Oximetry 97 96 10/20/18 00:00 10/20/18 00:33 10/20/18 03:39 Temperature 37.1 C Pulse Rate 93 H 77 Respiratory Rate 14 14 14 Pulse Oximetry 98 99 100 10/20/18 04:00 10/20/18 08:00 10/20/18 08:22 Temperature 37.0 C 36.6 C Pulse Rate 93 H 75 78 Respiratory Rate 14 22 18 Pulse Oximetry 100 99 98 10/20/18 09:00 10/20/18 10:00 10/20/18 11:00 Temperature Pulse Rate 84 91 H 86 Respiratory Rate 18 26 H 15 Pulse Oximetry 99 99 100 10/20/18 12:00 10/20/18 13:00 10/20/18 13:37 Temperature 36.7 C Pulse Rate 83 83 81 Respiratory Rate 21 12 20 Pulse Oximetry 100 99 10/20/18 14:00 10/20/18 15:00 10/20/18 15:37 Temperature Pulse Rate 82 85 83 Respiratory Rate 14 16 22 Pulse Oximetry 99 100 10/20/18 15:38 10/20/18 16:00 10/20/18 17:00 Temperature 36.9 C Pulse Rate 85 87 Respiratory Rate 19 17 Pulse Oximetry 99 99 100 Intake & Output 10/19/18 10/20/18 10/20/18 18:59 06:59 18:59 Intake Total 1450 / 1450 1120 / 1120 1350 / 1350 Output Total 1132 / 1132 Balance 1450 / 1450 -12 / -12 1350 / 1350 Weight 77.5 kg Intake: IV 1450 / 1450 520 / 520 1350 / 1350 NS Inj 1,000 ML @ 42 mls/hr IV. 1000 / 1000 1000 / 1000 CONT .[id number] GOLDY Rx#:[id number] Azithromycin Inj 500 MG In NS 250 / 250 250 / 250 Inj 250 ML @ 250 mls/hr IV.SIG Q24H GOLDY Rx#:[id number] Zyvox 600 mg Premix 300 ML @ 320 / 320 300 mls/hr IV.SIG Q12H GOLDY Rx#: [id number] Zosyn 4.5 GM Premix 4.5 gm In 200 / 200 200 / 200 100 / 100 100 ml @ 200 mls/hr IV.SIG Q6H GOLDY Rx#:[id number] Oral 0 / 0 Anesthesia Amount 600 / 600 Output: Estimated Blood Loss 200 / 200 Urine Amount (Catheter) 800 / 800 Indwelling Urethral Catheter 800 / 800 Chest Tube Drainage 132 / 132 #1Y and #2Y Left Mid-Axillary 82 / 82 Chest Y Connected Left Mid-Axillary Chest 50 / 50 Other: # Bowel Movements 0 Result Diagrams: 10/20/18 04:55 10/20/18 04:55 Objective Remarks: GENERAL: Elderly female, lying in bed, no distress this morning. HEENT: Normocephalic. Atraumatic. Pupils equal, round, reactive, conjugate. Mucous membranes are moist NECK: Trachea is midline. There is no JVD. CHEST: 3 left-sided chest tubes, all to suction, moderate amount of serosanguinous output. equal chest rise. recently extubated. on nc o2. CARDIOVASCULAR: Normal rate, regular rhythm. sinus. ABDOMEN: Soft, nontender, nondistended. No guarding. MUSCULOSKELETAL: Pulses 2+. No peripheral edema. NEUROLOGICAL: RASS -1. Awake and follows commands. Moves all extremities. No focal deficits. Assessment and Plan - Problem List (1) Septic shock Code(s): A41.9 - Sepsis, unspecified organism; R65.21 - Severe sepsis with septic shock Status: Acute (2) HCAP (healthcare-associated pneumonia) Code(s): J18.9 - Pneumonia, unspecified organism Status: Acute (3) Acute pulmonary embolism Code(s): I26.99 - Other pulmonary embolism without acute cor pulmonale Status : Acute (4) Pleural effusion Code(s): J90 - Pleural effusion, not elsewhere classified Status: Acute (5) CAD (coronary artery disease), [place] coronary artery Code(s): I25.10 - Atherosclerotic heart disease of [place] coronary artery without angina pectoris Status: Chronic (6) Diabetes mellitus Code(s): E11.9 - Type 2 diabetes mellitus without complications Status: Chronic (7) S/P coronary artery bypass graft x 4 Code(s): Z95.1 - Presence of aortocoronary bypass graft Status: Chronic (8) Heparin induced thrombocytopenia (HIT) Code(s): D75.82 - Heparin induced thrombocytopenia (HIT) Status: Chronic - Assessment and Plan Plan: Assessment: 58yF with CAD s/p CABG complicated by AKILAH and multiple arterial and venous thrombosis as well as bleeding complications including RV apex thrombus, RLL PE, multiple coronary graft thromboses, and now spontaneous left- sided hemothorax causing hemorrhagic shock and requiring transfusions. critically ill. now POD 1 s/p left VATS washout. Plan: Neuro/psych: History of depression -Continue home medication sertraline 50 mg daily Resp: Right lower lobe pulmonary embolism Left-sided healthcare associated pneumonia Left spontaneous hemothorax -Hold Arixtra, hold argatroban -Currently on nasal cannula to keep oxygen saturation above 90%. - weaned to extubate 10/20 (intubated for OR 10/19) -Bronchodilators with albuterol/ipratropium aerosols every 6 hours PRN -Hob elevated. -s/p left 36Fr chest tube 10/18: 1L sanguinous output - s/p 36 Fr chest tubes x 2 in OR 10/19 - all 3 CTs to suction. - Dr. Campos following - would leave off anticoagulation for a minimum of 48h and then gently anticoagulate with chest tubes still in place to watch output. if therapeutic on anticoagulation without further bleeding, would discontinue chest tubes at that time. CV: Hemorrhagic shock- resolved Lactic acidosis- resolved s/p off-pump CABG x 4 09/29 Immediate post-op STEMI Post-op Graft thrombosis - off vasopressors - SL IV. - trend hgb - transfuse to keep hgb > 7 -Continue home aspirin Plavix: must not stop. high risk of in-stent thrombosis. -At home on Arixtra 7.5 mg subcu daily. Changed to Argatroban gtt but now on hold due to hemorrhagic shock. -Continue statins. No beta-maryjo secondary to hypotension -Hold home diuretic due to hypotension -Previously on 09/29/2018, patient had a CABG x4 followed by hyper acute graft occlusion. She was taken emergently to the crime lab analyst by Dr. Melissa where she - had completely occluded grafts. Patient underwent MAXWELL to OM1, LAD. balloon angioplasty to OM2. -Echo preliminary does not show any evidence of RV dysfunction. No indication for TPA Renal: Acute kidney insufficiency- improving. -Monitor renal function, I/O's, electrolytes replacement per protocol. -Holding Lasix due to hypotension -Previous renal ultrasound indicated medical renal disease. FEN/GI: - slowly advance diet., IV Protonix -Previous transaminitis has resolved Heme/ID: Acute pulmonary embolism while on Arixtra Acute graft thrombosis Normocytic anemia RV apex thrombus Heparin Induced Thrombocytopenia Hemorrhagic shock -Discussed with damascener Dr. Curry -Discontinue Arixtra, hold argatroban - continue DAPT -Previously HIT positive ID: Healthcare associated left-sided pneumonia with complex effusion -d/c abx. cultures negative at 72h. watch for new fevers. -Sputum blood and urine culture: NGTD Endo: Type 2 diabetes -SSI with accuchecks -Hold long-acting insulin Prophylaxis: -hold anticoagulation given hemorrhagic shock. -Pantoprazole Lines: -Left IJ central line placed 10/17: keep one more day today. Keep in ICU. (6) Diabetes mellitus Qualifiers: Diabetes mellitus complication status: with circulatory complication
--- NOTE | 2018-10-20 18:12 | P.PNCV ---
- Note Subjective/Hospital Course: t 58-year-old female known to our service This patient presented to [facility] in early September with complaints of chest pain, she was found to have multivessel disease on cardiac catheterization. She was advised CABG, she underwent a four-vessel CABG on 09/29/2018. The same day she developed ST elevation MT with hyper acute thromboses of multiple grafts. That same night the patient required coronary artery stenting with multiple stents placed within the occluded coronary artery grafts. 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 She was initiated subsequently on Arixtra for management of hit. The patient also was on dual antiplatelet therapy with aspirin and Plavix. She was discharged home 1 week ago, she reports doing well at home up until the morning of 10/17/2018, she woke up at 4:30 AM with chest pain and difficulty breathing. She took 2 nitroglycerin about 10 minutes apart to help relieve the chest pain but this did not help. She subsequently called 911 close to 7 AM and was brought in to [facility] emergency department. CT angiogram of the thorax which revealed new right-sided pulmonary emboli ( small volume) and a new left-sided complicated pleural effusion. She was also noted to be hypotensive, she was initiated on IV fluid resuscitation and then required pressor support. She has been evaluated by cardiology, she was initiated on anticoagulation argatroban gtt , repeat ct chest should worsening left-sided pleural effusion which appears to be complicated. Over the course of the past 24 hours her hemoglobin has dropped down from 9.9 g/dL at presentation down to 6.6 g/dL she has received total of 4 units PRBC 10/18 pt require large bore left chest tube placed by [facility] , # 36 israeli 700 mL dark sanguinous output. concern is for persistent clots plan is to repeat CT chest on 10/19 for left VATS evacuation of hemothorax today / multiple clots in chest tube 1. Left video-Assisted Thoracoscopic Surgery (VATS). 2. Evacuation of Hemothorax 3. Intercostal Nerve Block 10/20 pt extubated now has 3 chest tubes, no air leak / bloody drainage awake and follows commands Objective: Vital Signs - 24 hr 10/19/18 21:00 10/19/18 21:45 10/19/18 23:24 Temperature 99.1 F Pulse Rate 94 H 101 H 95 H Respiratory Rate 14 14 14 Pulse Oximetry 97 96 10/20/18 00:00 10/20/18 00:33 10/20/18 03:39 Temperature 98.7 F Pulse Rate 93 H 77 Respiratory Rate 14 14 14 Pulse Oximetry 98 99 100 10/20/18 04:00 10/20/18 08:00 10/20/18 08:22 Temperature 98.6 F 97.8 F Pulse Rate 93 H 75 78 Respiratory Rate 14 22 18 Pulse Oximetry 100 99 98 10/20/18 09:00 10/20/18 10:00 10/20/18 11:00 Temperature Pulse Rate 84 91 H 86 Respiratory Rate 18 26 H 15 Pulse Oximetry 99 99 100 10/20/18 12:00 10/20/18 13:00 10/20/18 13:37 Temperature 98.1 F Pulse Rate 83 83 81 Respiratory Rate 21 12 20 Pulse Oximetry 100 99 10/20/18 14:00 10/20/18 15:00 10/20/18 15:37 Temperature Pulse Rate 82 85 83 Respiratory Rate 14 16 22 Pulse Oximetry 99 100 10/20/18 15:38 10/20/18 16:00 10/20/18 17:00 Temperature 98.5 F Pulse Rate 85 87 Respiratory Rate 19 17 Pulse Oximetry 99 99 100 GENERAL: awake sleepy , extubated SKIN: Warm and dry. HEAD: Normocephalic. EYES: No scleral icterus. No injection or drainage. NECK: Supple, trachea midline. No JVD or lymphadenopathy. CARDIOVASCULAR: Regular rate and rhythm without murmurs, gallops, or rubs. RESPIRATORY: Breath sounds equal bilaterally. No accessory muscle use. diminished left lung field / chest tube x 3 GASTROINTESTINAL: Abdomen soft, non-tender, nondistended. MUSCULOSKELETAL: No cyanosis, or edema. BACK: Nontender without obvious deformity. No CVA tenderness. Labs: Laboratory Results - last 12 hr 10/20/18 10/20/18 10/20/18 11:05 11:31 17:13 Puncture Site Negrita Patient Temperature 98.6 O2 Saturation 96 ABG pH 7.40 ABG pCO2 33 L ABG pO2 138 H ABG HCO3 20 L ABG O2 Content 12.9 ABG Base Excess -3.7 L ABG Methemoglobin 1.4 Hemoglobin 9.4 L Carboxyhemoglobin 1.3 O2 Delivery Device Vent Vent Setting 5/5/40 Inspired O2 40 Critical Value No POC Glucose 267 H 289 H Result Diagrams: 10/20/18 04:55 10/20/18 04:55 - Plan (2) Diabetes mellitus s/p left vats eval for removal of chest tube #1 next day or so (2) Diabetes mellitus Qualifiers: Diabetes mellitus complication status: with circulatory complication
--- NOTE | 2018-10-20 23:44 | P.PNCA ---
Subjective Interval history: VATS done yesterday Currently intubated with possible extubation later today Medications and Allergies Active Medications: Active Medications Hydrocodone Bitart/Acetaminophen ([place] 5/325) 1 tab PO Q6H PRN PRN Reason: PAIN 1-10 Al Hydroxide/Mg Hydroxide (Milk Of Magnesia Liq) 30 ml PO Q12H PRN PRN Reason: Mild Constipation Albuterol (Albuterol Neb (Prn)) 2.5 mg NEB Q2HR NEB PRN PRN Reason: SHORTNESS OF BREATH/WHEEZING Albuterol (Duoneb Neb (Estelle)) 1 ampul NEB Q4HR NEB [facility] Last Admin: 10/20/18 22:58 Dose: 1 ampul Aspirin (Ecotrin) 81 mg PO DAILY [facility] Last Admin: 10/20/18 12:36 Dose: 81 mg Bisacodyl (Dulcolax Supp) 10 mg RECTAL DAILY PRN PRN Reason: SEVERE CONSITIPATION Chlorhexidine Gluconate (Chlorhexidine 2% Cloth) 3 pack TOPICAL DAILY@0400 [facility] Stop: 10/23/18 03:59 Last Admin: 10/20/18 04:43 Dose: 3 pack Chlorhexidine Gluconate (Chlorhexidine 2% Cloth) 3 pack TOPICAL DAILY@0400 PRN PRN Reason: Extra cloth needed Stop: 10/23/18 03:59 Clopidogrel Bisulfate (Plavix) 75 mg PO DAILY [facility] Last Admin: 10/20/18 12:36 Dose: 75 mg Dextrose (D50w Vial) 50 ml IV.PUSH UNSCH PRN PRN Reason: PER HYPOGLYCEMIA PROTOCOL Furosemide (Lasix) 40 mg PO DAILY PRN PRN Reason: SEE LABEL COMMENTS Glucagon (Glucagon Inj) 1 mg OTHER PRN PRN PRN Reason: for Hypoglycemia Protocol Insulin Human Regular (Novolin R Correctional Sugar Inj) 0 units SQ Q6HR [facility]; Protocol Last Admin: 10/20/18 17:18 Dose: 5 units Lactulose (Lactulose Liq) 30 ml PO DAILY PRN PRN Reason: SEVERE CONSITIPATION Morphine Sulfate (Morphine Inj) 4 mg IV.PUSH Q4H PRN PRN Reason: breakthrough pain Last Admin: 10/20/18 20:50 Dose: 4 mg Ondansetron HCl (Zofran Inj) 4 mg IV.PUSH Q6H PRN PRN Reason: NAUSEA OR VOMITING Last Admin: 10/20/18 21:06 Dose: 4 mg Pantoprazole Sodium (Protonix Inj) 40 mg IV.PUSH DAILY [facility] Last Admin: 10/20/18 09:22 Dose: 40 mg Ranolazine (Ranexa) 500 mg PO Q12H [facility] Last Admin: 10/20/18 17:15 Dose: 500 mg Senna/Docusate Sodium (Jacqui-Colace) 1 tab PO BID [facility] Last Admin: 10/20/18 20:50 Dose: 1 tab Sennosides (Senokot) 17.2 mg PO Q12H PRN PRN Reason: Moderate Constipation Sertraline HCl (Zoloft) 50 mg PO DAILY [facility] Last Admin: 10/20/18 12:36 Dose: 50 mg Sodium Chloride (Ns Flush) 2 ml IV.FLUSH BID [facility] Last Admin: 10/20/18 20:50 Dose: 2 ml Sodium Chloride (Ns Flush) 2 ml IV.FLUSH PRN PRN PRN Reason: FLUSH AFTER USING IV ACCESS Temazepam (Restoril) 7.5 mg PO HS [facility] Last Admin: 10/20/18 20:50 Dose: 7.5 mg Allergies Allergy/AdvReac Type Severity Reaction Status Date / Time heparin Allergy Severe HEPARIN-INDUCED Verified 10/17/18 09:15 THROMBOCYTOPENIA metoprolol Allergy Severe HALLUCINATI Verified 10/17/18 09:15 ONS famotidine Allergy Unknown RASH Verified 10/17/18 09:15 lisinopril Allergy Unknown Itching Verified 10/17/18 09:15 insulin detemir AdvReac Unknown Diarrhea Verified 10/17/18 09:15 Home Medications Medication Instructions Recorded Confirmed Type aspirin [Aspir-81] 81 mg PO DAILY 08/03/18 10/17/18 History atorvastatin 20 mg PO DAILY 08/03/18 10/17/18 History insulin glargine [Lantus U-100 38 unit SUB-Q DAILY 08/03/18 10/17/18 History Insulin] insulin lispro [Humalog U-100 30 unit SUB-Q TIDAC 08/03/18 10/17/18 History Insulin] methocarbamol 500 mg PO QID 08/03/18 10/17/18 History nitroglycerin 0.3 mg SUBLINGUAL Q5-15M PRN 08/03/18 10/17/18 History sertraline 50 mg PO DAILY 08/03/18 10/17/18 History temazepam 7.5 mg PO HS 08/03/18 10/17/18 History docusate sodium [DOK] 100 mg PO BID PRN 10/17/18 10/17/18 History Physical Exam Vital signs: Vital Signs 10/20/18 00:00 10/20/18 00:33 10/20/18 03:39 Temperature 98.7 F Pulse Rate 93 H 77 Respiratory Rate 14 14 14 Pulse Oximetry 98 99 100 10/20/18 04:00 10/20/18 08:00 10/20/18 08:22 Temperature 98.6 F 97.8 F Pulse Rate 93 H 75 78 Respiratory Rate 14 22 18 Pulse Oximetry 100 99 98 10/20/18 09:00 10/20/18 10:00 10/20/18 11:00 Temperature Pulse Rate 84 91 H 86 Respiratory Rate 18 26 H 15 Pulse Oximetry 99 99 100 Intake & Output 10/20/18 10/20/18 10/21/18 06:59 18:59 06:59 Intake Total 1120 / 1120 1950 / 1950 Output Total 1132 / 1132 960 / 960 Balance - 990 / 990 Weight 77.5 kg Intake: IV 520 / 520 1750 / 1750 NS Inj 1,000 ML @ 42 mls/hr IV. 1000 / 1000 CONT .[id number] ESTELLE Rx#:[id number] Azithromycin Inj 500 MG In NS 250 / 250 Inj 250 ML @ 250 mls/hr IV.SIG Q24H ESTELLE Rx#:[id number] Zyvox 600 mg Premix 300 ML @ 320 / 320 300 / 300 300 mls/hr IV.SIG Q12H ESTELLE Rx#: [id number] Zosyn 4.5 GM Premix 4.5 gm In 200 / 200 200 / 200 100 ml @ 200 mls/hr IV.SIG Q6H ESTELLE Rx#:[id number] Oral 0 / 0 200 / 200 Anesthesia Amount 600 / 600 Output: Estimated Blood Loss 200 / 200 Urine Amount (Catheter) 800 / 800 750 / 750 Indwelling Urethral Catheter 800 / 800 750 / 750 Chest Tube Drainage 132 / 132 210 / 210 #1Y and #2Y Left Mid-Axillary 82 / 82 170 / 170 Chest Y Connected Left Mid-Axillary Chest 50 / 50 40 / 40 Other: # Bowel Movements 0 0 Narrative: General: Middle-aged female, laying in bed, appears to be acutely ill. Currently intubated HEENT: Head atraumatic normal cephalic, conjunctivae pale, sclerae anicteric, oral exam dry mucous membranes. Neck exam no cervical lymphadenopathy, she has a left-sided IJ triple lumen catheter. Respiratory: Breath sounds appear more clearly bilaterally Cardiovascular: Regular rate and rhythm, S1-S2 no obvious murmurs rubs gallops. Well-healing sternotomy incision noted. Abdominal: Protuberant abdomen, soft, no obvious tenderness, positive bowel sounds no palpable organ enlargement. Lower extremities no pretibial edema no calf tenderness. DIRECTOR CREDIT RISK: Currently intubated Skin: Nonfocal examination. Muscular skeletal: Adequate muscle mass, tone and strength. - Urinary Catheter Management Straight Cath placed during this visit: yes Reason for continuing: Acute urinary retention Insertion date: 10/18/18 Insertion time: 09:30 Indwelling Urethral Catheter Cath placed during this visit: yes Reason for continuing: Acute urinary retention Insertion date: 10/18/18 Insertion time: 09:30 Results 10/20/18 04:55 10/20/18 04:55 CBC 10/19/18 10/19/18 10/20/18 Range/Units 06:55 23:55 04:55 WBC 8.5 10.6 8.6 (4.0-11.0) th/mm3 RBC 3.13 L 3.35 L 3.26 L (4.00-5.30) mil/mm3 Hgb 9.4 L D 10.0 L 9.7 L (11.6-15.3) gm/dL Hct 26.8 L 28.9 L 28.1 L (35.0-46.0) % Plt Count 232 D 256 243 (150-450) th/mm3 Neut # (Auto) 5.5 7.5 (1.8-7.7) th/mm3 Lymph # (Auto) 2.0 0.7 L (1.0-4.8) th/mm3 [place] # (Auto) 0.8 0.3 (0.0-0.9) th/mm3 Eos # (Auto) 0.1 0.0 (0.0-0.4) th/mm3 Baso # (Auto) 0.0 0.0 (0.0-0.2) th/mm3 Comprehensive Metabolic Panel 10/19/18 10/20/18 Range/Units 06:55 04:55 Sodium 135 L 134 L (136-145) meq/L Potassium 4.0 4.7 (3.5-5.1) meq/L Chloride 105 104 (98-107) meq/L Carbon Dioxide 22.9 21.8 (21.0-32.0) meq/L BUN 7 10 (7-18) mg/dL Creatinine 0.85 0.92 (0.50-1.00) mg/dL Calcium 7.2 L* 7.5 L (8.5-10.1) mg/dL Albumin 2.5 L (3.4-5.0) g/dL Intake and Output 10/20/18 10/20/18 10/21/18 14:59 22:59 06:59 Intake Total 1100 / 1100 850 / 850 Output Total 960 / 960 Balance 1100 / 1100 -110 / -110 Intake: IV 1100 / 1100 650 / 650 NS Inj 1,000 ML @ 42 mls/hr IV. 1000 / 1000 CONT .[id number] ESTELLE Rx#:[id number] Azithromycin Inj 500 MG In NS 250 / 250 Inj 250 ML @ 250 mls/hr IV.SIG Q24H ESTELLE Rx#:[id number] Zyvox 600 mg Premix 300 ML @ 300 / 300 300 mls/hr IV.SIG Q12H ESTELLE Rx#: [id number] Zosyn 4.5 GM Premix 4.5 gm In 100 / 100 100 / 100 100 ml @ 200 mls/hr IV.SIG Q6H ESTELLE Rx#:[id number] Oral 200 / 200 Output: Urine Amount (Catheter) 750 / 750 Indwelling Urethral Catheter 750 / 750 Chest Tube Drainage 210 / 210 #1Y and #2Y Left Mid-Axillary 170 / 170 Chest Y Connected Left Mid-Axillary Chest 40 / 40 Other: # Bowel Movements 0 - Imaging and Cardiology Imaging: Impressions Chest X-Ray 10/19/18 00:00 CONCLUSION: Left chest tube and left central line without thorax. Near-complete opacification of the left hemithorax. Mild right basilar airspace disease. Chest X-Ray 10/19/18 19:50 CONCLUSION: Postoperative chest appearance as above with satisfactory positioning of support tubes and lines Chest X-Ray 10/20/18 05:00 CONCLUSION: Support apparatus unchanged. Stable left greater than right airspace disease and loculated left pleural fluid. Assessment and Plan - Assessment (1) Hemothorax Code(s): J94.2 - Hemothorax Status: Acute (2) Elevated troponin Code(s): R74.8 - Abnormal levels of other serum enzymes Status: Acute (3) CAD (coronary artery disease), [place] coronary artery Code(s): I25.10 - Atherosclerotic heart disease of [place] coronary artery without angina pectoris Status: Chronic (4) S/P coronary artery bypass graft x 4 Code(s): Z95.1 - Presence of aortocoronary bypass graft Status: Chronic (5) Heparin induced thrombocytopenia (HIT) Code(s): D75.82 - Heparin induced thrombocytopenia (HIT) Status: Chronic (6) Pneumonia Code(s): J18.9 - Pneumonia, unspecified organism Status: Acute (7) Acute pulmonary embolism Code(s): I26.99 - Other pulmonary embolism without acute cor pulmonale Status : Acute - Plan 1) Hx of CAD, previous CABGx4 with acute graft closure due to HIT, s/p complex PCI Unfortunately with recent complex PCI would not stop ASA/Plavix due to high risk of stent thrombosis 2) Hemothorax Chest tube placed by critical care VATS POD#[address] 3) Possible PNA Will have to see after left hemothorax is drained if truly PNA 4) Acute pulmonary embolism Argatroban stopped due to hemothorax Will need to be reanti-coagulated when possible 5) Minimal elevated troponins secondary to pulmonary embolism as well as recent events No acute coronary syndrome noted 6) Complex case Ultimately need to be on combination of anticoagulation/antiplatelet Once started on anticoagulation, consideration of stopping ASA to decrease overall bleeding risk
[2018-10-21] MEDS: Insulin NovoLIN Regular Correctional Sugar Inj SQ SCH ×4 (00:45→18:32)
[2018-10-21] MEDS: Morphine Inj 4 MG/ML Vial IV.PUSH PRN ×3 (01:08→08:44)
[2018-10-21] MEDS: Chlorhexidine Gluconate 2% 1 Pack (2 Cloths) TOPICAL SCH (04:41)
[2018-10-21] MEDS: Ranolazine 500 MG 12HR ER Tablet PO SCH ×2 (05:14→18:33)
[2018-10-21 05:36] LABS: Hematocrit 24.9 % (35.0-46.0); Hemoglobin 8.7 gm/dL (11.6-15.3); Mean Corpuscular Hemoglobin 30.3 pg (27.0-34.0); Mean Corpuscular Volume 86.5 fL (80.0-100.0); Mean Platelet Volume 7.3 fL (7.0-11.0); Platelet Count 251 th/mm3 (150-450); Red Blood Count 2.88 mil/mm3 (4.00-5.30); Red Cell Distribution Width 14.9 % (11.6-17.2); White Blood Count 8.2 th/mm3 (4.0-11.0)
[2018-10-21 05:49] LABS: Calcium 7.7 mg/dL (8.5-10.1); Carbon Dioxide 26.8 meq/L (21.0-32.0); Magnesium 2.2 mg/dL (1.5-2.5); Potassium 4.1 meq/L (3.5-5.1)
[2018-10-21 05:50] LABS: Phosphorus 1.4 mg/dL (2.5-4.9)
--- NOTE | 2018-10-21 06:56 | CT ---
EXAM DATE: 10/21/2018 6:22 AM EST AGE/SEX: 58 years / Female INDICATIONS: Left chest pleural effusion. CLINICAL DATA: This is the patient's initial encounter. Patient reports that signs and symptoms have been present for 1 day and indicates a pain score of 4/10. MEDICAL/SURGICAL HISTORY: Cardiovascular disease. Diabetes. Myocardial infarction. CABG. Hystere ctomy. RADIATION DOSE: 17.30 CTDI (mGy) [place] [facility] [place]. [facility] [place] S[place], 10/20/2018. . TECHNIQUE: Multiple contiguous axial images were obtained through the chest without contrast. Image s were obtained in suspended respiration using multiple row detector helical technique. Using automa joanna exposure control and adjustment of the mA and/or kV according to patient size, radiation dose was kept as low as reasonably achievable to obtain optimal diagnostic quality images. DICOM format imag e data is available electronically for review and comparison. FINDINGS: Lungs: There is atelectasis in the right lower lobe with consolidation and likely some degree of ate lectasis in the left upper and left lower lobes. Small volume of left pleural fluid is present. There are 3 large bore left chest tubes in place without a significant pneumothorax. The most superior yoanna st tube is partially filled with fluid. Mediastinum: The heart and great vessels demonstrate no acute abnormality. No lymphadenopathy is id entified. There is coronary artery calcification. Low-density of the cardiac blood pool may indicate anemia. Left IJ central line distal tip is in the SVC. Pleurae: There is a trace pleural fluid bilaterally. Axillae: No lymphadenopathy. Musculoskeletal: The bones and soft tissues demonstrate no acute abnormality. Median sternotomy wir es are present and there has been a recent sternotomy. Other: The visualized upper abdominal structures demonstrate no acute abnormality. There is a parti ally visualized subcutaneous edema along the right flank. CONCLUSION: 1. There is only a very small volume of left pleural fluid. Most of the opacity on the left on the r ecent chest x-ray represents a combination of airspace consolidation and subsegmental atelectasis. 2. There are 3 large bore left chest tubes in place without a significant pneumothorax. The superior chest tube is partially filled with fluid. 3. There is airspace opacity in the right lower lobe with an appearance favoring subsegmental atelec tasis. There is also trace right pleural fluid. Electronically signed by: Dave Kaye MD 10/21/2018 6:55 AM EST
[2018-10-21] MEDS: Senna/Docusate Sodium 8.6/50 MG Tablet PO SCH ×2 (08:40→21:15)
[2018-10-21] MEDS: Sertraline 50 MG Tablet PO SCH (08:40)
[2018-10-21] MEDS: Pantoprazole Inj 40 MG Vial IV.PUSH SCH (08:41)
--- NOTE | 2018-10-21 08:53 | P.PNONC ---
Subjective Interval history: Patient seen and examined this morning, vital signs, labs and medications reviewed. Overnight events reviewed. In the interim she has been extubated, she reports breathing more comfortably though she continues to have pain in her chest when she takes in a deep breath. She continues to have 3 large bore chest tubes in place. Earlier this morning a CT scan of the thorax was performed. Her chest tubes continued to drain scant amounts of serosanguineous liquid. CT scan of the thorax indicates interval resolution of pleural effusion. She does have patchy airspace disease involving the left hemithorax and the right lower lobe of the lung. Hemoglobin has declined slightly over the course of the past 24 hours. Objective Vital Signs/Intake & Output: Vital Signs 10/20/18 09:00 10/20/18 10:00 10/20/18 11:00 Temperature Pulse Rate 84 91 H 86 Respiratory Rate 18 26 H 15 Blood Pressure Pulse Oximetry 99 99 100 10/20/18 12:00 10/20/18 13:00 10/20/18 13:37 Temperature 98.1 F Pulse Rate 83 83 81 Respiratory Rate 21 12 20 Blood Pressure Pulse Oximetry 100 99 10/20/18 14:00 10/20/18 15:00 10/20/18 15:37 Temperature Pulse Rate 82 85 83 Respiratory Rate 14 16 22 Blood Pressure Pulse Oximetry 99 100 10/20/18 15:38 10/20/18 16:00 10/20/18 17:00 Temperature 98.5 F Pulse Rate 85 87 Respiratory Rate 19 17 Blood Pressure Pulse Oximetry 99 99 100 10/20/18 18:00 10/20/18 20:00 10/20/18 20:30 Temperature 97.7 F Pulse Rate 80 85 Respiratory Rate 18 22 Blood Pressure Pulse Oximetry 97 98 99 10/20/18 20:31 10/20/18 21:30 10/20/18 22:58 Temperature Pulse Rate 84 86 Respiratory Rate 22 16 18 Blood Pressure Pulse Oximetry 10/21/18 00:00 10/21/18 03:21 10/21/18 04:00 Temperature 98.0 F 98.0 F Pulse Rate 85 87 83 Respiratory Rate 14 16 14 Blood Pressure 98/66 L 98/66 L Pulse Oximetry 100 99 10/21/18 08:00 Temperature Pulse Rate 86 Respiratory Rate 20 Blood Pressure Pulse Oximetry 98 Intake & Output 10/20/18 10/21/1818 18:59 06:59 18:59 Intake Total 1950 / 1950 180 / 180 1000 / 1000 Output Total 960 / 960 404 / 404 Balance 990 / 990 -224 / -224 1000 / 1000 Weight 77.5 kg Intake: IV 1750 / 1750 1000 / 1000 NS Inj 1,000 ML @ 42 mls/hr IV. 1000 / 1000 CONT .[id number] ESTELLE Rx#:[id number] Azithromycin Inj 500 MG In NS 250 / 250 Inj 250 ML @ 250 mls/hr IV.SIG Q24H ESTELLE Rx#:[id number] Zyvox 600 mg Premix 300 ML @ 300 / 300 300 mls/hr IV.SIG Q12H ESTELLE Rx#: [id number] Zosyn 4.5 GM Premix 4.5 gm In 200 / 200 100 ml @ 200 mls/hr IV.SIG Q6H ESTELLE Rx#:[id number] Oral 200 / 200 180 / 180 Output: Urine Amount (Catheter) 750 / 750 350 / 350 Indwelling Urethral Catheter 750 / 750 350 / 350 Chest Tube Drainage 210 / 210 54 / 54 #1Y and #2Y Left Mid-Axillary 170 / 170 50 / 50 Chest Y Connected Left Mid-Axillary Chest 40 / 40 4 / 4 Other: # Bowel Movements 0 0 Result Diagrams: 10/21/18 05:05 10/21/18 05:05 Laboratory Results: Laboratory Results - last 24 hr 10/19/18 10/20/18 10/20/18 18:29 11:05 11:31 WBC RBC Hgb Hct MCV MCH MCHC RDW Plt Count MPV Puncture Site [place] Patient Temperature 98.6 O2 Saturation 96 ABG pH 7.40 ABG pCO2 33 L ABG pO2 138 H ABG HCO3 20 L ABG O2 Content 12.9 ABG Base Excess -3.7 L ABG Methemoglobin 1.4 Hemoglobin 9.4 L Carboxyhemoglobin 1.3 O2 Delivery Device Vent Vent Setting 5/5/40 Inspired O2 40 Critical Value No Sodium Potassium Chloride Carbon Dioxide Anion Gap BUN Creatinine Estimated GFR POC Glucose 267 H Random Glucose Calcium Phosphorus Magnesium MTS Gel Crossmatch See Detail 10/20/18 10/21/18 10/21/18 17:13 00:27 05:05 WBC 8.2 RBC 2.88 L Hgb 8.7 L Hct 24.9 L MCV 86.5 MCH 30.3 MCHC 35.0 RDW 14.9 Plt Count 251 MPV 7.3 Puncture Site Patient Temperature O2 Saturation ABG pH ABG pCO2 ABG pO2 ABG HCO3 ABG O2 Content ABG Base Excess ABG Methemoglobin Hemoglobin Carboxyhemoglobin O2 Delivery Device Vent Setting Inspired O2 Critical Value Sodium Potassium Chloride Carbon Dioxide Anion Gap BUN Creatinine Estimated GFR POC Glucose 289 H 291 H Random Glucose Calcium Phosphorus Magnesium MTS Gel Crossmatch 10/21/18 10/21/18 05:05 05:09 WBC RBC Hgb Hct MCV MCH MCHC RDW Plt Count MPV Puncture Site Patient Temperature O2 Saturation ABG pH ABG pCO2 ABG pO2 ABG HCO3 ABG O2 Content ABG Base Excess ABG Methemoglobin Hemoglobin Carboxyhemoglobin O2 Delivery Device Vent Setting Inspired O2 Critical Value Sodium 136 Potassium 4.1 Chloride 105 Carbon Dioxide 26.8 Anion Gap 4 L BUN 10 Creatinine 0.86 Estimated GFR 83 L POC Glucose 257 H Random Glucose 246 H Calcium 7.7 L Phosphorus 1.4 L D Magnesium 2.2 MTS Gel Crossmatch Culture Results: Microbiology 10/17/18 09:45 Aerobic Blood Culture - Preliminary Blood - Peripheral No growth in 3 days Anaerobic Blood Culture - Preliminary No growth in 3 days 10/17/18 09:35 Aerobic Blood Culture - Preliminary Blood - Peripheral No growth in 3 days Anaerobic Blood Culture - Preliminary No growth in 3 days 10/18/18 09:30 Urine Culture - Final Catheterized Urine No growth in 48 hours 10/17/18 22:45 Urine Culture - Final Catheterized Urine No growth in 48 hours Imaging Studies: Impressions Chest CT 10/21/18 00:00 CONCLUSION: 1. There is only a very small volume of left pleural fluid. Most of the opacity on the left on the recent chest x-ray represents a combination of airspace consolidation and subsegmental atelectasis. 2. There are 3 large bore left chest tubes in place without a significant pneumothorax. The superior chest tube is partially filled with fluid. 3. There is airspace opacity in the right lower lobe with an appearance favoring subsegmental atelectasis. There is also trace right pleural fluid. Medications: Active Medications Generic Name Dose Route Start Last Admin Trade Name Freq PRN Reason Stop Dose Admin Albuterol 1 ampul 10/17/18 12:00 10/21/18 08:00 Duoneb Neb (Estelle) NEB 1 ampul Q4HR NEB ESTELEL Administration Chlorhexidine Gluconate 3 pack 10/18/18 04:00 10/21/18 04:41 Chlorhexidine 2% Cloth TOPICAL 10/23/18 03:59 Not Given DAILY@0400 ESTELLE Clopidogrel Bisulfate 75 mg 10/18/18 09:00 10/21/18 08:40 Plavix PO 75 mg DAILY ESTELLE Administration Insulin Human Regular 0 units 10/17/18 18:00 10/21/18 05:16 Novolin R Correctional Sugar Inj SQ 5 units Q6HR ESTELLE Administration Protocol Morphine Sulfate 4 mg 10/17/18 21:39 10/21/18 08:44 Morphine Inj IV.PUSH 4 mg Q4H PRN Administration breakthrough pain Ondansetron HCl 4 mg 10/19/18 19:50 10/20/18 21:06 Zofran Inj IV.PUSH 4 mg Q6H PRN Administration NAUSEA OR VOMITING Pantoprazole Sodium 40 mg 10/18/18 09:00 10/21/18 08:41 Protonix Inj IV.PUSH 40 mg DAILY ESTELLE Administration Ranolazine 500 mg 10/17/18 18:00 10/21/18 05:14 Ranexa PO 500 mg Q12H ESTELLE Administration Senna/Docusate Sodium 1 tab 10/17/18 21:00 10/21/18 08:40 Jacqui-Colace PO 1 tab BID ESTELLE Administration Sertraline HCl 50 mg 10/18/18 09:00 10/21/18 08:40 Zoloft PO 50 mg DAILY ESTELLE Administration Sodium Chloride 2 ml 10/17/18 21:00 10/21/18 08:41 Ns Flush IV.FLUSH 2 ml BID ESTELLE Administration Temazepam 7.5 mg 10/17/18 21:00 10/20/18 20:50 Restoril PO 7.5 mg HS ESTELLE Administration Objective Remarks: General: Middle-aged female, awake and alert, responsive and speaks to me in full sentences, she does appear weak and frail. HEENT: Head atraumatic normal cephalic, conjunctivae pale, sclerae anicteric, oral exam dry mucous membranes. Neck exam no cervical lymphadenopathy, she has a left-sided IJ triple lumen catheter. Respiratory: Good air movement over the right hemithorax, decreased breath sounds over the left hemithorax, breath sounds are improved when compared to exam performed on 10/19/2018. 2 [address] are in place, these are draining serosanguineous fluid. Chest: 3 left-sided large caliber chest tubes in the left hemithorax. Cardiovascular: Regular rate and rhythm, S1-S2 no obvious murmurs rubs gallops. Well-healing sternotomy incision noted. Abdominal: Protuberant abdomen, soft, no obvious tenderness, positive bowel sounds no palpable organ enlargement. Lower extremities no pretibial edema no calf tenderness. 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 Skin: Nonfocal examination. Muscular skeletal: Adequate muscle mass, tone and strength. Assessment/Plan - Plan Ms. Lira is a 58-year-old female with multiple medical comorbid conditions including long-standing history of diabetes, chronic kidney disease, coronary artery disease, recent CABG with hyperacute thromboses of the grafts. The hyper acute thrombosis was attributed to an underlying heparin-induced thrombocytopenia with thrombosis (AKILAH). The patient had been on therapeutic anticoagulation with Arixtra in combination with dual antiplatelet therapy with Plavix and aspirin. She was discharged from this facility less than 1 week ago to the outpatient setting, she woke up yesterday morning with complaints of chest pain and difficulty breathing, she was also noted to have low blood pressure. Imaging studies indicate a small volume right-sided pulmonary embolism associated with complicated/loculated left-sided pleural effusion concerning for hemothorax. In the setting of dual antiplatelet therapy and therapeutic anticoagulation and significant drop in hemoglobin a hemothorax is the likely/leading differential. Hematology service has been asked to see this patient to reconcile the competing issues i.e. ongoing hemo-thorax with drop in hemoglobin hematocrit in the setting of heparin-induced thrombocytopenia with a pulmonary embolism. Recommendations: 1. Left-sided hemothorax: Underwent video-assisted thoracoscopic surgery (VATS ) on 10/19/2018. Blood and clots amounting to approximately 900 cc were evacuated. There was no suggestion of active/ongoing bleeding intraoperatively. Patient presently with 2 chest tubes, these are draining serosanguineous fluid. CT scan of the thorax dated 10/21/2018 indicates resolution of pleural effusion. Chest tubes are draining small quantities of serosanguineous liquid. 2. Recent history of heparin-induced thrombocytopenia with thrombosis (AKILAH), hyperacute thromboses of coronary artery grafts, she also has a thrombus within the right ventricle: After discussing the case with the cardiology team and critical care team we will cautiously proceed with reintroduction of anticoagulation with low-dose Argatroban infusion without a loading dose. Aspirin will be discontinued, Plavix will continue going forward. The patient will be monitored carefully. I would like the chest tubes to remain in place for at least 24-48 hours after resuming Argatroban, presuming there is no evidence of recurrent bleeding.
[2018-10-21] MEDS: Argatroban Inj 250 MG in Sodium Chlor 0.9% Inj 247.5 ML IV.CONT PRN (10:10)
[2018-10-21] MEDS ORDERED: Naloxone Inj 0.4 MG/ML Vial IV.PUSH PRN (11:35)
--- NOTE | 2018-10-21 11:37 | P.PNCC ---
Subjective Subjective Remarks/Hospital Course: Hospital Course: Patient is a 58-year-old female with history of coronary artery disease, type 2 diabetes, who underwent off-pump CABG x 4 09/29/[address] Campos. Intraoperatively she had significant ST elevations, emergently taken to [facility] by by Dr. Melissa, found to have completely occluded grafts. Patient underwent MAXWELL to OM1, LAD. balloon angiopasty to OM2. Patient had a complicated course and was diagnosed with heparin-induced thrombocytopenia. A follow-up echo on 10/03/2018 showed EF 50-55%. Patient was eventually discharged on 10/10/2018 with a prescription for Arixtra however next day she had to be admitted for 1 day for as pharmacy did not have Arixtra. Arixtra was arranged and patient was discharged again on 10/11/2018. Today she presented to the emergency department for chest pain and shortness of breath. For systolic blood pressure in the 80s patient received IV fluid bolus by EMS. Chest x-ray showed extensive left-sided infiltrate/effusion. Presuming pneumonia and septic shock, patient received cefepime and azithromycin in the ED. Lactic acid was 2.1. Critical care was contacted for admission as after 2 L fluid boluses patient remained hypotensive I discussed with Dr. Kearns, recommended additional 1 more liter fluid bolus, and start Levophed if patient remains hypotensive. I also recommended stat CT Chest PE protocol. This showed pulmonary embolism in right lower lobe segmental and subsegmental branches. Also there was extensive consolidative change in the left perihilar region, left lung base, and also large mixed density loculated and nonloculated pleural fluid with associated pleural thickening. I have discussed the case with Dr. Campos cardiothoracic surgery, Dr. Melissa, cardiology and Dr. Curry hematology oncology. Patient will be admitted to ICU and I will discontinue Arixtra and start on Argatroban IV. I evaluated the patient in the ICU. She appears to be in moderate distress hypotensive currently on 5 mcg/min of Levophed. She had received total 3 L normal saline boluses. I will place her on Argatroban as above. A stat 2D echo prelim did not reveal any evidence of RV dysfunction. Hypotension is secondary to his severe sepsis and septic shock not related to PE. No indication for TPA. Pancultured continue broad-spectrum antibiotic with Zosyn, Zyvox and azithromycin. Because of the loculation and pleural thickening involving the effusion, once clinically more stable patient may need decortication procedure Subjective: 10/18: hgb dropped acutely to 6.6 from 9.9 overnight. patient with worsening dyspnea. taken emergently down to CT for repeat chest/abd/pelvis. CT chest with enlarging hemothorax. discussed case with Dr. Campos, at his request, placed 36Fr chest tube with 1L bloody output. dyspnea improving. discussed extensively with Dr. Campos: plan to wait and watch chest tube output for 48h and repeat CT chest. discussed with Dr. Melissa: needs dual antiplatelet therapy to prevent in-stent thrombosis. risky to hold argatroban, but will be forced to at least for the next 48h given life-threatening bleeding. discussed with Dr. Curry. Discussed extensively with all family members and explained current situation. patient endorses SOB. 10/19: multiple clots in chest tube. CXR again with whiteout of the left lung field. discussed with Dr. Campos- he will take to OR for left VATS washout and hematoma evacuation. discussed extensively with patient and family. hgb 11.6-> 9.4. off vasopressors. 10/20: taken to OR yesterday for washout and evacuation of hematoma. today, CXR significantly improved. patient remained intubated, but weaned and extubated today after she passed SBT. 10/21: 1gm drop in hgb today. chest tubes now much more dry. no air leak. to suction. patient states she has significant pain. 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 discussed with multidisciplinary team: joint decision to start argatroban today, give 48h on drip and if no bleeding, will discontinue chest tubes at that point. Objective Vital Signs / I&O: Vital Signs 10/20/18 12:00 10/20/18 13:00 10/20/18 13:37 Temperature 36.7 C Pulse Rate 83 83 81 Respiratory Rate 21 12 20 Blood Pressure Pulse Oximetry 100 99 10/20/18 14:00 10/20/18 15:00 10/20/18 15:37 Temperature Pulse Rate 82 85 83 Respiratory Rate 14 16 22 Blood Pressure Pulse Oximetry 99 100 10/20/18 15:38 10/20/18 16:00 10/20/18 17:00 Temperature 36.9 C Pulse Rate 85 87 Respiratory Rate 19 17 Blood Pressure Pulse Oximetry 99 99 100 10/20/18 18:00 10/20/18 20:00 10/20/18 20:30 Temperature 36.5 C Pulse Rate 80 85 Respiratory Rate 18 22 Blood Pressure Pulse Oximetry 97 98 99 10/20/18 20:31 10/20/18 21:30 10/20/18 22:58 Temperature Pulse Rate 84 86 Respiratory Rate 22 16 18 Blood Pressure Pulse Oximetry 10/21/18 00:00 10/21/18 03:21 10/21/18 04:00 Temperature 36.7 C 36.7 C Pulse Rate 85 87 83 Respiratory Rate 14 16 14 Blood Pressure 98/66 L 98/66 L Pulse Oximetry 100 99 10/21/18 08:00 10/21/18 09:00 10/21/18 10:00 Temperature 36.6 C Pulse Rate 86 90 92 H Respiratory Rate 20 20 24 Blood Pressure 102/65 93/60 L 90/60 L Pulse Oximetry 100 98 96 10/21/18 11:00 Temperature Pulse Rate 90 Respiratory Rate 22 Blood Pressure 95/60 L Pulse Oximetry 98 Intake & Output 10/20/18 10/21/18 10/21/18 18:59 06:59 18:59 Intake Total 1950 / 1950 180 / 180 1000 / 1000 Output Total 960 / 960 404 / 404 Balance 990 / 990 -224 / -224 1000 / 1000 Weight 77.5 kg Intake: IV 1750 / 1750 1000 / 1000 NS Inj 1,000 ML @ 42 mls/hr IV. 1000 / 1000 CONT .[id number] GOLDY Rx#:[id number] Azithromycin Inj 500 MG In NS 250 / 250 Inj 250 ML @ 250 mls/hr IV.SIG Q24H GOLDY Rx#:[id number] Zyvox 600 mg Premix 300 ML @ 300 / 300 300 mls/hr IV.SIG Q12H GOLDY Rx#: [id number] Zosyn 4.5 GM Premix 4.5 gm In 200 / 200 100 ml @ 200 mls/hr IV.SIG Q6H GOLDY Rx#:[id number] Oral 200 / 200 180 / 180 Output: Urine Amount (Catheter) 750 / 750 350 / 350 Indwelling Urethral Catheter 750 / 750 350 / 350 Chest Tube Drainage 210 / 210 54 / 54 #1Y and #2Y Left Mid-Axillary 170 / 170 50 / 50 Chest Y Connected Left Mid-Axillary Chest 40 / 40 4 / 4 Other: # Bowel Movements 0 0 Result Diagrams: 10/21/18 05:05 10/21/18 05:05 Objective Remarks: GENERAL: Elderly female, lying in bed, no distress this morning. HEENT: Normocephalic. Atraumatic. Pupils equal, round, reactive, conjugate. Mucous membranes are moist NECK: Trachea is midline. There is no JVD. CHEST: 3 left-sided chest tubes, all to suction, minimal amount of serosanguinous output. equal chest rise. on nc o2. CARDIOVASCULAR: Normal rate, regular rhythm. sinus. ABDOMEN: Soft, nontender, nondistended. No guarding. MUSCULOSKELETAL: Pulses 2+. No peripheral edema. NEUROLOGICAL: RASS -1. Awake and follows commands. Moves all extremities. No focal deficits. Assessment and Plan - Problem List (1) Septic shock Code(s): A41.9 - Sepsis, unspecified organism; R65.21 - Severe sepsis with septic shock Status: Acute (2) HCAP (healthcare-associated pneumonia) Code(s): J18.9 - Pneumonia, unspecified organism Status: Acute (3) Acute pulmonary embolism Code(s): I26.99 - Other pulmonary embolism without acute cor pulmonale Status : Acute (4) Pleural effusion Code(s): J90 - Pleural effusion, not elsewhere classified Status: Acute (5) CAD (coronary artery disease), [place] coronary artery Code(s): I25.10 - Atherosclerotic heart disease of [place] coronary artery without angina pectoris Status: Chronic (6) Diabetes mellitus Code(s): E11.9 - Type 2 diabetes mellitus without complications Status: Chronic (7) S/P coronary artery bypass graft x 4 Code(s): Z95.1 - Presence of aortocoronary bypass graft Status: Chronic (8) Heparin induced thrombocytopenia (HIT) Code(s): D75.82 - Heparin induced thrombocytopenia (HIT) Status: Chronic - Assessment and Plan Plan: Assessment: 58yF with CAD s/p CABG complicated by AKILAH and multiple arterial and venous thrombosis as well as bleeding complications including RV apex thrombus, RLL PE, multiple coronary graft thromboses, and now spontaneous left- sided hemothorax causing hemorrhagic shock and requiring transfusions. now POD 2 s/p left VATS washout. Plan: Neuro/psych: History of depression -Continue home medication sertraline 50 mg daily Resp: Right lower lobe pulmonary embolism Left-sided healthcare associated pneumonia Left spontaneous hemothorax -restart argatroban today -Currently on nasal cannula to keep oxygen saturation above 90%. - weaned to extubate 10/20 (intubated for OR 10/19) -Bronchodilators with albuterol/ipratropium aerosols every 6 hours PRN -Hob elevated. -s/p left 36Fr chest tube 10/18: 1L sanguinous output: will d/c today. - s/p 36 Fr chest tubes x 2 in OR 10/19 - all CTs to suction. - Dr. Campos following - gently anticoagulate with chest tubes still in place to watch output. if therapeutic on anticoagulation without further bleeding x 48h, would discontinue chest tubes at that time (earliest Tuesday 10/23) CV: Hemorrhagic shock- resolved Lactic acidosis- resolved s/p off-pump CABG x 4 09/29 Immediate post-op STEMI Post-op Graft thrombosis - off vasopressors - SL IV. - trend hgb - transfuse to keep hgb > 7 -Continue home aspirin Plavix: must not stop. high risk of in-stent thrombosis. -At home on Arixtra 7.5 mg subcu daily. Changed to Argatroban gtt but now on hold due to hemorrhagic shock. -Continue statins. No beta-maryjo secondary to hypotension -Hold home diuretic due to hypotension -Previously on 09/29/2018, patient had a CABG x4 followed by hyper acute graft occlusion. She was taken emergently to the lab aid by Dr. Melissa where she - had completely occluded grafts. Patient underwent MAXWELL to OM1, LAD. balloon angioplasty to OM2. -Echo preliminary does not show any evidence of RV dysfunction. No indication for TPA Renal: Acute kidney insufficiency- improving. -Monitor renal function, I/O's, electrolytes replacement per protocol. -Holding Lasix due to hypotension -Previous renal ultrasound indicated medical renal disease. FEN/GI: - slowly advance diet., IV Protonix -Previous transaminitis has resolved Heme/ID: Acute pulmonary embolism while on Arixtra Acute graft thrombosis Normocytic anemia RV apex thrombus Heparin Induced Thrombocytopenia Hemorrhagic shock -Discussed with carbide powder processor Dr. Curry - see above anticoag plan. - continue DAPT -Previously HIT positive ID: -d/c abx. cultures negative at 72h. watch for new fevers. -Sputum blood and urine culture: NGTD Endo: Type 2 diabetes -SSI with accuchecks -Hold long-acting insulin Prophylaxis: -hold anticoagulation given hemorrhagic shock. -Pantoprazole Lines: -Left IJ central line placed 10/17: d/c today. Keep in ICU. (6) Diabetes mellitus Qualifiers: Diabetes mellitus complication status: with circulatory complication
--- NOTE | 2018-10-21 12:29 | P.PNCA ---
Subjective Interval history: Extubated yesterday Started on Argatroban this morning by Heme/Onc Multi-disciplinary discussion this morning on how to proceed with anti- platelet/anti-coagulation Pain with deep breaths Medications and Allergies Active Medications: Active Medications Hydrocodone Bitart/Acetaminophen ([place] 5/325) 1 tab PO Q4H PRN PRN Reason: PAIN 1-10 Al Hydroxide/Mg Hydroxide (Milk Of [place] Liq) 30 ml PO Q12H PRN PRN Reason: Mild Constipation Albuterol (Albuterol Neb (Prn)) 2.5 mg NEB Q2HR NEB PRN PRN Reason: SHORTNESS OF BREATH/WHEEZING Albuterol (Duoneb Neb (Goldy)) 1 ampul NEB Q4HR NEB GOLDY Last Admin: 10/21/18 11:10 Dose: 1 ampul Bisacodyl (Dulcolax Supp) 10 mg RECTAL DAILY PRN PRN Reason: SEVERE CONSITIPATION Chlorhexidine Gluconate (Chlorhexidine 2% Cloth) 3 pack TOPICAL DAILY@0400 [facility] Stop: 10/23/18 03:59 Last Admin: 10/21/18 04:41 Dose: Not Given Chlorhexidine Gluconate (Chlorhexidine 2% Cloth) 3 pack TOPICAL DAILY@0400 PRN PRN Reason: Extra cloth needed Stop: 10/23/18 03:59 Clopidogrel Bisulfate (Plavix) 75 mg PO DAILY [facility] Last Admin: 10/21/18 08:40 Dose: 75 mg Dextrose (D50w Vial) 50 ml IV.PUSH UNSCH PRN PRN Reason: PER HYPOGLYCEMIA PROTOCOL Furosemide (Lasix) 40 mg PO DAILY PRN PRN Reason: SEE LABEL COMMENTS Glucagon (Glucagon Inj) 1 mg OTHER PRN PRN PRN Reason: for Hypoglycemia Protocol Argatroban 250 mg/ Sodium (Chloride) 250 mls @ 2.32 mls/hr IV.CONT TITRATE PRN ; Protocol PRN Reason: Per Protocol Last Admin: 10/21/18 10:10 Dose: 0.5 mcg/kg/min, 2.32 mls/hr Morphine Sulfate (Morphine Inj) 30 mg in 30 mls @ 0 mls/hr [employer] UNSCH PRN PRN Reason: prn pain Insulin Human Regular (Novolin R Correctional Sugar Inj) 0 units SQ Q6HR [facility]; Protocol Last Admin: 10/21/18 05:16 Dose: 5 units Lactulose (Lactulose Liq) 30 ml PO DAILY PRN PRN Reason: SEVERE CONSITIPATION Naloxone HCl (Narcan Inj) 0.4 mg IV.PUSH PRN PRN PRN Reason: Resp rate < 10 Ondansetron HCl (Zofran Inj) 4 mg IV.PUSH Q6H PRN PRN Reason: NAUSEA OR VOMITING Last Admin: 10/20/18 21:06 Dose: 4 mg Pantoprazole Sodium (Protonix Inj) 40 mg IV.PUSH DAILY [facility] Last Admin: 10/21/18 08:41 Dose: 40 mg Ranolazine (Ranexa) 500 mg PO Q12H [facility] Last Admin: 10/21/18 05:14 Dose: 500 mg Senna/Docusate Sodium (Jacqui-Colace) 1 tab PO BID [facility] Last Admin: 10/21/18 08:40 Dose: 1 tab Sennosides (Senokot) 17.2 mg PO Q12H PRN PRN Reason: Moderate Constipation Sertraline HCl (Zoloft) 50 mg PO DAILY [facility] Last Admin: 10/21/18 08:40 Dose: 50 mg Sodium Chloride (Ns Flush) 2 ml IV.FLUSH BID [facility] Last Admin: 10/21/18 08:41 Dose: 2 ml Sodium Chloride (Ns Flush) 2 ml IV.FLUSH PRN PRN PRN Reason: FLUSH AFTER USING IV ACCESS Temazepam (Restoril) 7.5 mg PO HS [facility] Last Admin: 10/20/18 20:50 Dose: 7.5 mg Allergies Allergy/AdvReac Type Severity Reaction Status Date / Time heparin Allergy Severe HEPARIN-INDUCED Verified 10/17/18 09:15 THROMBOCYTOPENIA metoprolol Allergy Severe HALLUCINATI Verified 10/17/18 09:15 ONS famotidine Allergy Unknown RASH Verified 10/17/18 09:15 lisinopril Allergy Unknown Itching Verified 10/17/18 09:15 insulin detemir AdvReac Unknown Diarrhea Verified 10/17/18 09:15 Home Medications Medication Instructions Recorded Confirmed Type aspirin [Aspir-81] 81 mg PO DAILY 08/03/18 10/17/18 History atorvastatin 20 mg PO DAILY 08/03/18 10/17/18 History insulin glargine [Lantus U-100 38 unit SUB-Q DAILY 08/03/18 10/17/18 History Insulin] insulin lispro [Humalog U-100 30 unit SUB-Q TIDAC 08/03/18 10/17/18 History Insulin] methocarbamol 500 mg PO QID 08/03/18 10/17/18 History nitroglycerin 0.3 mg SUBLINGUAL Q5-15M PRN 08/03/18 10/17/18 History sertraline 50 mg PO DAILY 08/03/18 10/17/18 History temazepam 7.5 mg PO HS 08/03/18 10/17/18 History docusate sodium [DOK] 100 mg PO BID PRN 10/17/18 10/17/18 History Physical Exam Vital signs: Vital Signs 10/20/18 13:00 10/20/18 13:37 10/20/18 14:00 Temperature Pulse Rate 83 81 82 Respiratory Rate 12 20 14 Blood Pressure Pulse Oximetry 99 99 10/20/18 15:00 10/20/18 15:37 10/20/18 15:38 Temperature Pulse Rate 85 83 Respiratory Rate 16 22 Blood Pressure Pulse Oximetry 100 99 10/20/18 16:00 10/20/18 17:00 10/20/18 18:00 Temperature 98.5 F Pulse Rate 85 87 80 Respiratory Rate 19 17 18 Blood Pressure Pulse Oximetry 99 100 97 10/20/18 20:00 10/20/18 20:30 10/20/18 20:31 Temperature 97.7 F Pulse Rate 85 84 Respiratory Rate 22 22 Blood Pressure Pulse Oximetry 98 99 10/20/18 21:30 10/20/18 22:58 10/21/18 00:00 Temperature 98.0 F Pulse Rate 86 85 Respiratory Rate 16 18 14 Blood Pressure 98/66 L Pulse Oximetry 100 10/21/18 03:21 10/21/18 04:00 10/21/18 08:00 Temperature 98.0 F 97.8 F Pulse Rate 87 83 86 Respiratory Rate 16 14 20 Blood Pressure 98/66 L 102/65 Pulse Oximetry 99 100 10/21/18 09:00 10/21/18 10:00 10/21/18 11:00 Temperature Pulse Rate 90 92 H 90 Respiratory Rate 20 24 22 Blood Pressure 93/60 L 90/60 L 95/60 L Pulse Oximetry 98 96 98 Intake & Output 10/20/18 10/21/18 10/21/18 18:59 06:59 18:59 Intake Total 1950 / 1950 180 / 180 1000 / 1000 Output Total 960 / 960 404 / 404 Balance 990 / 990 -224 / -224 1000 / 1000 Weight 77.5 kg Intake: IV 1750 / 1750 1000 / 1000 NS Inj 1,000 ML @ 42 mls/hr IV. 1000 / 1000 CONT .[id number] GOLDY Rx#:[id number] Azithromycin Inj 500 MG In NS 250 / 250 Inj 250 ML @ 250 mls/hr IV.SIG Q24H GOLDY Rx#:[id number] Zyvox 600 mg Premix 300 ML @ 300 / 300 300 mls/hr IV.SIG Q12H GOLDY Rx#: [id number] Zosyn 4.5 GM Premix 4.5 gm In 200 / 200 100 ml @ 200 mls/hr IV.SIG Q6H GOLDY Rx#:[id number] Oral 200 / 200 180 / 180 Output: Urine Amount (Catheter) 750 / 750 350 / 350 Indwelling Urethral Catheter 750 / 750 350 / 350 Chest Tube Drainage 210 / 210 54 / 54 #1Y and #2Y Left Mid-Axillary 170 / 170 50 / 50 Chest Y Connected Left Mid-Axillary Chest 40 / 40 4 / 4 Other: # Bowel Movements 0 0 Narrative: General: Middle-aged female, laying in bed, appears to be acutely ill. HEENT: Head atraumatic normal cephalic, conjunctivae pale, sclerae anicteric, oral exam dry mucous membranes. Neck exam no cervical lymphadenopathy, she has a left-sided IJ triple lumen catheter. Respiratory: Breath sounds appear more clearly bilaterally Cardiovascular: Regular rate and rhythm, S1-S2 no obvious murmurs rubs gallops. Well-healing sternotomy incision noted. Abdominal: Protuberant abdomen, soft, no obvious tenderness, positive bowel sounds no palpable organ enlargement. Lower extremities no pretibial edema no calf tenderness. STORES DESPATCH HAND: No focal deficits Skin: Nonfocal examination. Muscular skeletal: Adequate muscle mass, tone and strength. - Urinary Catheter Management Straight Cath placed during this visit: yes Reason for continuing: Acute urinary retention Insertion date: 10/18/18 Insertion time: 09:30 Indwelling Urethral Catheter Cath placed during this visit: yes Reason for continuing: Acute urinary retention Insertion date: 10/18/18 Insertion time: 09:30 Results 10/21/18 05:05 10/21/18 05:05 Coagulation 10/21/18 Range/Units 09:53 APTT 25.1 (23.4-31.7) sec CBC 10/19/18 10/20/18 10/21/18 Range/Units 23:55 04:55 05:05 WBC 10.6 8.6 8.2 (4.0-11.0) th/mm3 RBC 3.35 L 3.26 L 2.88 L (4.00-5.30) mil/mm3 Hgb 10.0 L 9.7 L 8.7 L (11.6-15.3) gm/dL Hct 28.9 L 28.1 L 24.9 L (35.0-46.0) % Plt Count 256 243 251 (150-450) th/mm3 Neut # (Auto) 7.5 (1.8-7.7) th/mm3 Lymph # (Auto) 0.7 L (1.0-4.8) th/mm3 [place] # (Auto) 0.3 (0.0-0.9) th/mm3 Eos # (Auto) 0.0 (0.0-0.4) th/mm3 Baso # (Auto) 0.0 (0.0-0.2) th/mm3 Comprehensive Metabolic Panel 10/20/18 10/21/18 Range/Units 04:55 05:05 Sodium 134 L 136 (136-145) meq/L Potassium 4.7 4.1 (3.5-5.1) meq/L Chloride 104 105 (98-107) meq/L Carbon Dioxide 21.8 26.8 (21.0-32.0) meq/L BUN 10 10 (7-18) mg/dL Creatinine 0.92 0.86 (0.50-1.00) mg/dL Calcium 7.5 L 7.7 L (8.5-10.1) mg/dL Intake and Output 10/20/18 10/21/18 10/21/18 22:59 06:59 14:59 Intake Total 850 / 850 180 / 180 1000 / 1000 Output Total 960 / 960 404 / 404 Balance -110 / -110 -224 / -224 1000 / 1000 Intake: IV 650 / 650 1000 / 1000 Azithromycin Inj 500 MG In NS 250 / 250 Inj 250 ML @ 250 mls/hr IV.SIG Q24H GOLDY Rx#:[id number] Zyvox 600 mg Premix 300 ML @ 300 / 300 300 mls/hr IV.SIG Q12H GOLDY Rx#: [id number] Zosyn 4.5 GM Premix 4.5 gm In 100 / 100 100 ml @ 200 mls/hr IV.SIG Q6H GOLDY Rx#:[id number] Oral 200 / 200 180 / 180 Output: Urine Amount (Catheter) 750 / 750 350 / 350 Indwelling Urethral Catheter 750 / 750 350 / 350 Chest Tube Drainage 210 / 210 54 / 54 #1Y and #2Y Left Mid-Axillary 170 / 170 50 / 50 Chest Y Connected Left Mid-Axillary Chest 40 / 40 4 / 4 Other: # Bowel Movements 0 0 Weight 77.5 kg - Imaging and Cardiology Imaging: Impressions Chest X-Ray 10/19/18 19:50 CONCLUSION: Postoperative chest appearance as above with satisfactory positioning of support tubes and lines Chest X-Ray 10/20/18 05:00 CONCLUSION: Support apparatus unchanged. Stable left greater than right airspace disease and loculated left pleural fluid. Chest CT 10/21/18 00:00 CONCLUSION: 1. There is only a very small volume of left pleural fluid. Most of the opacity on the left on the recent chest x-ray represents a combination of airspace consolidation and subsegmental atelectasis. 2. There are 3 large bore left chest tubes in place without a significant pneumothorax. The superior chest tube is partially filled with fluid. 3. There is airspace opacity in the right lower lobe with an appearance favoring subsegmental atelectasis. There is also trace right pleural fluid. Assessment and Plan - Assessment (1) Hemothorax Code(s): J94.2 - Hemothorax Status: Acute (2) Elevated troponin Code(s): R74.8 - Abnormal levels of other serum enzymes Status: Acute (3) CAD (coronary artery disease), [place] coronary artery Code(s): I25.10 - Atherosclerotic heart disease of [place] coronary artery without angina pectoris Status: Chronic (4) S/P coronary artery bypass graft x 4 Code(s): Z95.1 - Presence of aortocoronary bypass graft Status: Chronic (5) Heparin induced thrombocytopenia (HIT) Code(s): D75.82 - Heparin induced thrombocytopenia (HIT) Status: Chronic (6) Pneumonia Code(s): J18.9 - Pneumonia, unspecified organism Status: Acute (7) Acute pulmonary embolism Code(s): I26.99 - Other pulmonary embolism without acute cor pulmonale Status : Acute - Plan 1) Hx of CAD, previous CABGx4 with acute graft closure due to HIT, s/p complex PCI Unfortunately with recent complex PCI would not stop Plavix due to high risk of stent thrombosis 2) Hemothorax Chest tube placed by critical care VATS POD#[address] 3) Possible PNA Will have to see after left hemothorax is drained if truly PNA 4) Acute pulmonary embolism Argatroban restarted 5) Minimal elevated troponins secondary to pulmonary embolism as well as recent events No acute coronary syndrome noted 6) Complex case Ultimately need to be on combination of anticoagulation/antiplatelet Started on Argatroban, continue Plavix and stop ASA
[2018-10-21] MEDS: Morphine Inj 30 MG/30 ML PCA.VIAL PCA PRN (12:51)
--- NOTE | 2018-10-21 16:29 | P.PNCV ---
- Note Subjective/Hospital Course: t 58-year-old female known to our service This patient presented to [facility] in early September with complaints of chest pain, she was found to have multivessel disease on cardiac catheterization. She was advised CABG, she underwent a four-vessel CABG on 09/29/2018. The same day she developed ST elevation [place] with hyper acute thromboses of multiple grafts. That same night the patient required coronary artery stenting with multiple stents placed within the occluded coronary artery grafts. 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 She was initiated subsequently on Arixtra for management of hit. The patient also was on dual antiplatelet therapy with aspirin and Plavix. She was discharged home 1 week ago, she reports doing well at home up until the morning of 10/17/2018, she woke up at 4:30 AM with chest pain and difficulty breathing. She took 2 nitroglycerin about 10 minutes apart to help relieve the chest pain but this did not help. She subsequently called 911 close to 7 AM and was brought in to [facility] emergency department. CT angiogram of the thorax which revealed new right-sided pulmonary emboli ( small volume) and a new left-sided complicated pleural effusion. She was also noted to be hypotensive, she was initiated on IV fluid resuscitation and then required pressor support. She has been evaluated by cardiology, she was initiated on anticoagulation argatroban gtt , repeat ct chest should worsening left-sided pleural effusion which appears to be complicated. Over the course of the past 24 hours her hemoglobin has dropped down from 9.9 g/dL at presentation down to 6.6 g/dL she has received total of 4 units PRBC 10/18 pt require large bore left chest tube placed by [facility] , # 36 [place] 700 mL dark sanguinous output. concern is for persistent clots plan is to repeat CT chest on 10/19 for left VATS evacuation of hemothorax today / multiple clots in chest tube 1. Left video-Assisted Thoracoscopic Surgery (VATS). 2. Evacuation of Hemothorax 3. Intercostal Nerve Block 10/20 pt extubated now has 3 chest tubes, no air leak / bloody drainage awake and follows commands 10/21 less drainage from chest tubes -plan gently anticoagulate with chest tubes still in place to watch output. if therapeutic on anticoagulation without further bleeding x 48h, would discontinue chest tubes at that time (earliest Tuesday 10/23) Objective: Vital Signs - 24 hr 10/20/18 17:00 10/20/18 18:00 10/20/18 20:00 Temperature 97.7 F Pulse Rate 87 80 85 Respiratory Rate 17 18 22 Blood Pressure Pulse Oximetry 100 97 98 10/20/18 20:30 10/20/18 20:31 10/20/18 21:30 Temperature Pulse Rate 84 Respiratory Rate 22 16 Blood Pressure Pulse Oximetry 99 10/20/18 22:58 10/21/18 00:00 10/21/18 03:21 Temperature 98.0 F Pulse Rate 86 85 87 Respiratory Rate 18 14 16 Blood Pressure 98/66 L Pulse Oximetry 100 10/21/18 04:00 10/21/18 08:00 10/21/18 09:00 Temperature 98.0 F 97.8 F Pulse Rate 83 86 90 Respiratory Rate 14 20 20 Blood Pressure 98/66 L 102/65 93/60 L Pulse Oximetry 99 100 98 10/21/18 10:00 10/21/18 11:00 10/21/18 12:00 Temperature 98.1 F Pulse Rate 92 H 90 93 H Respiratory Rate 24 22 24 Blood Pressure 90/60 L 95/60 L 91/61 L Pulse Oximetry 96 98 97 10/21/18 13:00 10/21/18 14:00 10/21/18 15:00 Temperature Pulse Rate 93 H 88 88 Respiratory Rate 27 H 19 21 Blood Pressure 95/64 L 97/65 L 102/64 Pulse Oximetry 98 99 98 10/21/18 16:00 Temperature Pulse Rate 89 Respiratory Rate 19 Blood Pressure 105/70 Pulse Oximetry 98 GENERAL: A&O x 3 SKIN: Warm and dry.chest tube x 3 left lateral chest wall HEAD: Normocephalic. EYES: No scleral icterus. No injection or drainage. NECK: Supple, trachea midline. No JVD or lymphadenopathy. CARDIOVASCULAR: Regular rate and rhythm without murmurs, gallops, or rubs. RESPIRATORY: Breath sounds equal bilaterally. No accessory muscle use. few coarse breath sounds GASTROINTESTINAL: Abdomen soft, non-tender, nondistended. MUSCULOSKELETAL: No cyanosis, or edema. BACK: Nontender without obvious deformity. No CVA tenderness. Labs: Laboratory Results - last 12 hr 11/10/21/18 10/21/18 18:29 05:05 05:05 WBC 8.2 RBC 2.88 L Hgb 8.7 L Hct 24.9 L MCV 86.5 MCH 30.3 MCHC 35.0 RDW 14.9 Plt Count 251 MPV 7.3 APTT Sodium 136 Potassium 4.1 Chloride 105 Carbon Dioxide 26.8 Anion Gap 4 L BUN 10 Creatinine 0.86 Estimated GFR 83 L POC Glucose Random Glucose 246 H Calcium 7.7 L Phosphorus 1.4 L D Magnesium 2.2 MTS Gel Crossmatch See Detail 10/21/18 10/21/18 10/21/18 05:09 09:53 11:57 WBC RBC Hgb Hct MCV MCH MCHC RDW Plt Count MPV APTT 25.1 Sodium Potassium Chloride Carbon Dioxide Anion Gap BUN Creatinine Estimated GFR POC Glucose 257 H 271 H Random Glucose Calcium Phosphorus Magnesium MTS Gel Crossmatch 10/21/18 12:25 WBC RBC Hgb Hct MCV MCH MCHC RDW Plt Count MPV APTT 44.6 H D Sodium Potassium Chloride Carbon Dioxide Anion Gap BUN Creatinine Estimated GFR POC Glucose Random Glucose Calcium Phosphorus Magnesium MTS Gel Crossmatch Result Diagrams: 10/21/18 05:05 10/21/18 05:05 - Plan (2) Diabetes mellitus (6) Heparin induced thrombocytopenia (HIT) Plan: on argatroban (9) Acute pulmonary embolism Plan: pt on argatroban (10) Hemothorax Plan: keep chest tube in for now - gently anticoagulate with chest tubes still in place to watch output. if therapeutic on anticoagulation without further bleeding x 48h, would discontinue chest tubes at that time (earliest Tuesday 10/23) (2) Diabetes mellitus Qualifiers: Diabetes mellitus complication status: with circulatory complication
[2018-10-22 01:28] LABS: Hemoglobin 8.7 gm/dL (11.6-15.3); Mean Corpuscular HGB Conc 34.7 % (32.0-36.0); Mean Corpuscular Hemoglobin 29.9 pg (27.0-34.0); Mean Corpuscular Volume 86.3 fL (80.0-100.0); Mean Platelet Volume 7.2 fL (7.0-11.0); Platelet Count 253 th/mm3 (150-450); Red Blood Count 2.89 mil/mm3 (4.00-5.30); Red Cell Distribution Width 14.2 % (11.6-17.2)
[2018-10-22 01:53] LABS: Anion Gap 6 meq/L (5-15); Blood Urea Nitrogen 11 mg/dL (7-18); Calcium 7.7 mg/dL (8.5-10.1); Carbon Dioxide 25.1 meq/L (21.0-32.0); Chloride 105 meq/L (98-107); Glomerular Filtration Rate Greater Than 89 mL/min (>89); Glucose,Random 251 mg/dL (74-106); Magnesium 2.2 mg/dL (1.5-2.5); Phosphorus 1.9 mg/dL (2.5-4.9); Potassium 4.3 meq/L (3.5-5.1); Sodium 136 meq/L (136-145)
[2018-10-22] MEDS: Insulin NovoLIN Regular Correctional Sugar Inj SQ SCH ×4 (06:06→17:25)
[2018-10-22] MEDS: Chlorhexidine Gluconate 2% 1 Pack (2 Cloths) TOPICAL SCH (06:07)
[2018-10-22] MEDS: Ranolazine 500 MG 12HR ER Tablet PO SCH ×2 (06:08→17:25)
[2018-10-22] MEDS: Pantoprazole Inj 40 MG Vial IV.PUSH SCH (08:24)
[2018-10-22] MEDS: Sertraline 50 MG Tablet PO SCH (08:25)
[2018-10-22] MEDS: Senna/Docusate Sodium 8.6/50 MG Tablet PO SCH ×2 (08:25→20:30)
--- NOTE | 2018-10-22 12:27 | P.PNONC ---
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 Left-sided chest tube shows very minimal sanguinous output Objective Vital Signs/Intake & Output: Vital Signs 10/21/18 13:00 10/21/18 14:00 10/21/18 15:00 Temperature Pulse Rate 93 H 88 88 Respiratory Rate 27 H 19 21 Blood Pressure 95/64 L 97/65 L 102/64 Pulse Oximetry 98 99 98 10/21/18 16:00 10/21/18 16:58 10/21/18 20:00 Temperature 99.7 F H Pulse Rate 89 92 H 96 H Respiratory Rate 19 20 14 Blood Pressure 105/70 103/76 Pulse Oximetry 98 96 10/21/18 23:30 10/21/18 23:32 10/21/18 23:43 Temperature Pulse Rate 97 H Respiratory Rate 18 16 Blood Pressure Pulse Oximetry 100 10/22/18 00:00 10/22/18 02:57 10/22/18 04:00 Temperature 99.5 F 99.4 F Pulse Rate 93 H 90 88 Respiratory Rate 18 18 18 Blood Pressure 95/67 L 116/72 Pulse Oximetry 95 95 10/22/18 08:00 10/22/18 09:00 Temperature 98.5 F Pulse Rate 88 92 H Respiratory Rate 20 Blood Pressure 119/75 Pulse Oximetry 96 Intake & Output 10/21/18 10/22/18 10/22/18 18:59 06:59 18:59 Intake Total 1480 / 1480 590 / 590 Output Total 634 / 634 550 / 550 Balance 846 / 846 40 / 40 Weight 182 lb 15.739 oz Intake: IV 1000 / 1000 Oral 480 / 480 Other 590 / 590 Output: Urine Amount (Catheter) 500 / 500 550 / 550 Indwelling Urethral Catheter 500 / 500 550 / 550 Chest Tube Drainage 134 / 134 #1Y and #2Y Left Mid-Axillary 120 / 120 Chest Y Connected Left Mid-Axillary Chest 14 / 14 Other: # Bowel Movements 0 Result Diagrams: 10/22/18 00:53 10/22/18 00:53 Laboratory Results: Laboratory Results - last 24 hr 10/21/18 10/21/18 10/21/18 12:25 16:20 18:28 WBC RBC Hgb Hct MCV MCH MCHC RDW Plt Count MPV APTT 44.6 H D 46.1 H Sodium Potassium Chloride Carbon Dioxide Anion Gap BUN Creatinine Estimated GFR POC Glucose 227 H Random Glucose Calcium Phosphorus Magnesium 10/21/18 10/22/18 10/22/18 20:28 00:39 00:53 WBC 7.0 RBC 2.89 L Hgb 8.7 L Hct 25.0 L MCV 86.3 MCH 29.9 MCHC 34.7 RDW 14.2 Plt Count 253 MPV 7.2 APTT 32.7 H D Sodium Potassium Chloride Carbon Dioxide Anion Gap BUN Creatinine Estimated GFR POC Glucose 248 H Random Glucose Calcium Phosphorus Magnesium 10/22/18 10/22/18 10/22/18 00:53 00:53 05:36 WBC RBC Hgb Hct MCV MCH MCHC RDW Plt Count MPV APTT 52.8 H D 57.7 H Sodium 136 Potassium 4.3 Chloride 105 Carbon Dioxide 25.1 Anion Gap 6 BUN 11 Creatinine 0.73 Estimated GFR Greater than 89 POC Glucose Random Glucose 251 H Calcium 7.7 L Phosphorus 1.9 L Magnesium 2.2 10/22/18 10/22/18 05:51 11:43 WBC RBC Hgb Hct MCV MCH MCHC RDW Plt Count MPV APTT Sodium Potassium Chloride Carbon Dioxide Anion Gap BUN Creatinine Estimated GFR POC Glucose 237 H 236 H Random Glucose Calcium Phosphorus Magnesium Culture Results: Microbiology 10/17/18 09:45 Aerobic Blood Culture - Final Blood - Peripheral No growth in 5 days Anaerobic Blood Culture - Final No growth in 5 days 10/17/18 09:35 Aerobic Blood Culture - Final Blood - Peripheral No growth in 5 days Anaerobic Blood Culture - Final No growth in 5 days 10/18/18 09:30 Urine Culture - Final Catheterized Urine No growth in 48 hours 10/17/18 22:45 Urine Culture - Final Catheterized Urine No growth in 48 hours Medications: Active Medications Generic Name Dose Route Start Last Admin Trade Name Freq PRN Reason Stop Dose Admin Hydrocodone Bitart/Acetaminophen 1 tab 10/21/18 11:36 10/21/18 21:13 Mumford 5/325 PO 1 tab Q4H PRN Administration PAIN 1-10 Albuterol 1 ampul 10/17/18 12:00 10/22/18 09:03 Duoneb Neb (Estelle) NEB Not Given Q4HR NEB ESTELLE Chlorhexidine Gluconate 3 pack 10/18/18 04:00 10/22/18 06:07 Chlorhexidine 2% Cloth TOPICAL 10/23/18 03:59 3 pack DAILY@0400 ESTELLE Administration Clopidogrel Bisulfate 75 mg 10/18/18 09:00 10/22/18 08:25 Plavix PO 75 mg DAILY ESTELLE Administration Argatroban 250 mg/ Sodium 250 mls @ 2.32 mls/hr 10/21/18 10:00 10/21/18 18:33 Chloride IV.CONT 1 mcg/kg/min TITRATE PRN 4.65 mls/hr Per Protocol Titration Protocol 0.5 MCG/KG/MIN Morphine Sulfate 30 mg in 30 mls @ 0 mls/hr 10/21/18 11:35 10/21/18 12:51 Morphine Inj [employer]G TEACHER 0 mls/hr UNSCH PRN Administration prn pain 0 MG/HR Insulin Human Regular 0 units 10/17/18 18:00 10/22/18 12:08 Novolin R Correctional Sugar Inj SQ 3 units Q6HR ESTELLE Administration Protocol Ondansetron HCl 4 mg 10/19/18 19:50 10/20/18 21:06 Zofran Inj IV.PUSH 4 mg Q6H PRN Administration NAUSEA OR VOMITING Pantoprazole Sodium 40 mg 10/18/18 09:00 10/22/18 08:24 Protonix Inj IV.PUSH 40 mg DAILY ESTELLE Administration Ranolazine 500 mg 10/17/18 18:00 10/22/18 06:08 Ranexa PO 500 mg Q12H ESTELLE Administration Senna/Docusate Sodium 1 tab 10/17/18 21:00 10/22/18 08:25 Jacqui-Colace PO 1 tab BID ESTELLE Administration Sertraline HCl 50 mg 10/18/18 09:00 10/22/18 08:25 Zoloft PO 50 mg DAILY ESTELLE Administration Sodium Chloride 2 ml 10/17/18 21:00 10/22/18 08:26 Ns Flush IV.FLUSH 2 ml BID ESTELLE Administration Temazepam 7.5 mg 10/17/18 21:00 10/22/18 06:06 Restoril PO Not Given HS ESTELLE Objective Remarks: GENERAL: Fatigued, chronically ill-appearing older female resting in bed in no acute distress SKIN: Warm and dry. HEAD: Normocephalic. EYES: No scleral icterus. No injection or drainage. NECK: Supple, trachea midline. CARDIOVASCULAR: Regular rate and rhythm. RESPIRATORY: Diminished breath sounds. Left-sided chest tube with small amount sanguinous drainage noted. GASTROINTESTINAL: Abdomen soft, non-tender, nondistended. EXTREMITIES: No cyanosis, or edema. MUSCULOSKELETAL: Adequate muscle tone. NEUROLOGICAL: Sleepy but easily awakened. Follows commands. Normal speech. No obvious focal deficit. Assessment/Plan - Plan Ms. Lira is a 58-year-old female with multiple medical comorbid conditions including long-standing history of diabetes, chronic kidney disease, coronary artery disease, recent CABG with hyperacute thromboses of the grafts. The hyper acute thrombosis was attributed to an underlying heparin-induced thrombocytopenia with thrombosis (AKILAH). The patient had been on therapeutic anticoagulation with Arixtra in combination with dual antiplatelet therapy with Plavix and aspirin. The patient returned to the emergency room after 1 week with increased chest pain and associated shortness of breath. CTA showed she has small volume right sided pulmonary embolism associated with complicated/ loculated left-sided pleural effusion concerning for hemothorax. Hematology service has been asked to see this patient to reconcile the competing issues i.e. ongoing hemo-thorax with drop in hemoglobin hematocrit in the setting of heparin-induced thrombocytopenia with a pulmonary embolism. Recommendations: 1. Left-sided hemothorax: Underwent video-assisted thoracoscopic surgery (VATS ) on 10/19/2018. Blood and clots amounting to approximately 900 cc were evacuated. There was no suggestion of active/ongoing bleeding intraoperatively. Patient presently with 2 chest tubes, these are draining small quantities serosanguineous fluid. CT scan yesterday showed near resolution of the pleural effusion. 2. Recent history of heparin-induced thrombocytopenia with thrombosis (AKILAH), hyperacute thromboses of coronary artery grafts, she also has a thrombus within the right ventricle: Patient will continue with argatroban for anticoagulation. She is not having any bleeding. Her hemoglobin is stable. We will recheck her liver enzymes tomorrow morning as this is cleared hepatically. 3. The patient will be monitored carefully. Ideally the chest tubes should remain in place for at least 24-48 hours after resuming Argatroban, presuming there is no evidence of recurrent bleeding. CBC in a.m. - Attending Statement The exam, history, and the medical decision-making described in the above note were completed with the assistance of the mid-level provider. I reviewed and agree with the findings presented. I attest that I had a [id number] encounter with the patient on the same day, and personally performed and documented my assessment and findings in the medical record. Patient complained of bloating and asking for Tums. Chest tube in place. No obvious bleeding noted. Hemoglobin is stable. Platelet count remains normal. She will continue Argatroban. Continue supportive care per nursing officer.
--- NOTE | 2018-10-22 15:40 | P.PNCC ---
Subjective Subjective Remarks/Hospital Course: Hospital Course: Patient is a 58-year-old female with history of coronary artery disease, type 2 diabetes, who underwent off-pump CABG x 4 09/29/[address] Campos. Intraoperatively she had significant ST elevations, emergently taken to [facility] by by Dr. Melissa, found to have completely occluded grafts. Patient underwent MAXWELL to OM1, LAD. balloon angiopasty to OM2. Patient had a complicated course and was diagnosed with heparin-induced thrombocytopenia. A follow-up echo on 10/03/2018 showed EF 50-55%. Patient was eventually discharged on 10/10/2018 with a prescription for Arixtra however next day she had to be admitted for 1 day for as pharmacy did not have Arixtra. Arixtra was arranged and patient was discharged again on 10/11/2018. Today she presented to the emergency department for chest pain and shortness of breath. For systolic blood pressure in the 80s patient received IV fluid bolus by EMS. Chest x-ray showed extensive left-sided infiltrate/effusion. Presuming pneumonia and septic shock, patient received cefepime and azithromycin in the ED. Lactic acid was 2.1. Critical care was contacted for admission as after 2 L fluid boluses patient remained hypotensive I discussed with Dr. Kearns, recommended additional 1 more liter fluid bolus, and start Levophed if patient remains hypotensive. I also recommended stat CT Chest PE protocol. This showed pulmonary embolism in right lower lobe segmental and subsegmental branches. Also there was extensive consolidative change in the left perihilar region, left lung base, and also large mixed density loculated and nonloculated pleural fluid with associated pleural thickening. I have discussed the case with Dr. Campos cardiothoracic surgery, Dr. Melissa, cardiology and Dr. Curry hematology oncology. Patient will be admitted to ICU and I will discontinue Arixtra and start on Argatroban IV. I evaluated the patient in the ICU. She appears to be in moderate distress hypotensive currently on 5 mcg/min of Levophed. She had received total 3 L normal saline boluses. I will place her on Argatroban as above. A stat 2D echo prelim did not reveal any evidence of RV dysfunction. Hypotension is secondary to his severe sepsis and septic shock not related to PE. No indication for TPA. Pancultured continue broad-spectrum antibiotic with Zosyn, Zyvox and azithromycin. Because of the loculation and pleural thickening involving the effusion, once clinically more stable patient may need decortication procedure Subjective: 10/18: hgb dropped acutely to 6.6 from 9.9 overnight. patient with worsening dyspnea. taken emergently down to CT for repeat chest/abd/pelvis. CT chest with enlarging hemothorax. discussed case with Dr. Campos, at his request, placed 36Fr chest tube with 1L bloody output. dyspnea improving. discussed extensively with Dr. Campos: plan to wait and watch chest tube output for 48h and repeat CT chest. discussed with Dr. Melissa: needs dual antiplatelet therapy to prevent in-stent thrombosis. risky to hold argatroban, but will be forced to at least for the next 48h given life-threatening bleeding. discussed with Dr. Curry. Discussed extensively with all family members and explained current situation. patient endorses SOB. 10/19: multiple clots in chest tube. CXR again with whiteout of the left lung field. discussed with Dr. Campos- he will take to OR for left VATS washout and hematoma evacuation. discussed extensively with patient and family. hgb 11.6-> 9.4. off vasopressors. 10/20: taken to OR yesterday for washout and evacuation of hematoma. today, CXR significantly improved. patient remained intubated, but weaned and extubated today after she passed SBT. 10/21: 1gm drop in hgb today. chest tubes now much more dry. no air leak. to suction. patient states she has significant pain. placed on morphine [employer]ATOR for improved patient control of analgesia. discussed with multidisciplinary team: joint decision to start argatroban today, give 48h on drip and if no bleeding, will discontinue chest tubes at that point. 10/22: hgb stable. chest tube output minimal. no air leak. argatroban drip continues. patient states she does not want to eat "solid food" and would prefer liquids only today. I have ordered full liquid diet for patient comfort at her request. Objective Vital Signs / I&O: Vital Signs 10/21/18 16:00 10/21/18 16:58 10/21/18 20:00 Temperature 37.6 C H Pulse Rate 89 92 H 96 H Respiratory Rate 19 20 14 Blood Pressure 105/70 103/76 Pulse Oximetry 98 96 10/21/18 23:30 10/21/18 23:32 10/21/18 23:43 Temperature Pulse Rate 97 H Respiratory Rate 18 16 Blood Pressure Pulse Oximetry 100 10/22/18 00:00 10/22/18 02:57 10/22/18 04:00 Temperature 37.5 C 37.4 C Pulse Rate 93 H 90 88 Respiratory Rate 18 18 18 Blood Pressure 95/67 L 116/72 Pulse Oximetry 95 95 10/22/18 08:00 10/22/18 09:00 10/22/18 12:00 Temperature 36.9 C 36.6 C Pulse Rate 88 92 H 90 Respiratory Rate 20 18 Blood Pressure 119/75 127/79 Pulse Oximetry 96 98 Intake & Output 10/21/18 10/22/18 10/22/18 18:59 06:59 18:59 Intake Total 1480 / 1480 590 / 590 Output Total 634 / 634 550 / 550 Balance 846 / 846 40 / 40 Weight 83 kg Intake: IV 1000 / 1000 Oral 480 / 480 Other 590 / 590 Output: Urine Amount (Catheter) 500 / 500 550 / 550 Indwelling Urethral Catheter 500 / 500 550 / 550 Chest Tube Drainage 134 / 134 #1Y and #2Y Left Mid-Axillary 120 / 120 Chest Y Connected Left Mid-Axillary Chest 14 / 14 Other: # Bowel Movements 0 Result Diagrams: 10/22/18 00:53 10/22/18 00:53 Objective Remarks: GENERAL: Elderly female, lying in bed, no distress this morning. HEENT: Normocephalic. Atraumatic. Pupils equal, round, reactive, conjugate. Mucous membranes are moist NECK: Trachea is midline. There is no JVD. CHEST: 2 left-sided chest tubes, both to suction, minimal amount of serosanguinous output. equal chest rise. on nc o2. CARDIOVASCULAR: Normal rate, regular rhythm. sinus. ABDOMEN: Soft, nontender, nondistended. No guarding. MUSCULOSKELETAL: Pulses 2+. No peripheral edema. NEUROLOGICAL: RASS -1. Awake and follows commands. Moves all extremities. No focal deficits. Assessment and Plan - Problem List (1) Septic shock Code(s): A41.9 - Sepsis, unspecified organism; R65.21 - Severe sepsis with septic shock Status: Acute (2) HCAP (healthcare-associated pneumonia) Code(s): J18.9 - Pneumonia, unspecified organism Status: Acute (3) Acute pulmonary embolism Code(s): I26.99 - Other pulmonary embolism without acute cor pulmonale Status : Acute (4) Pleural effusion Code(s): J90 - Pleural effusion, not elsewhere classified Status: Acute (5) CAD (coronary artery disease), [place] coronary artery Code(s): I25.10 - Atherosclerotic heart disease of [place] coronary artery without angina pectoris Status: Chronic (6) Diabetes mellitus Code(s): E11.9 - Type 2 diabetes mellitus without complications Status: Chronic (7) S/P coronary artery bypass graft x 4 Code(s): Z95.1 - Presence of aortocoronary bypass graft Status: Chronic (8) Heparin induced thrombocytopenia (HIT) Code(s): D75.82 - Heparin induced thrombocytopenia (HIT) Status: Chronic - Assessment and Plan Plan: Assessment: 58yF with CAD s/p CABG complicated by AKILAH and multiple arterial and venous thrombosis as well as bleeding complications including RV apex thrombus, RLL PE, multiple coronary graft thromboses, and now spontaneous left- sided hemothorax causing hemorrhagic shock and requiring transfusions. now POD 3 s/p left VATS washout. Doing well. keep chest tubes one additional day with argatroban on board before de-escalating tubes. keep in ICU- very high risk of decompensation. Plan: Neuro/psych: History of depression -Continue home medication sertraline 50 mg daily Resp: Right lower lobe pulmonary embolism Left-sided healthcare associated pneumonia Left spontaneous hemothorax s/p left washout, VATS 10/19 -restarted argatroban 10/21 -Currently on nasal cannula to keep oxygen saturation above 90%. - weaned to extubate 10/20 (intubated for OR 10/19) -Bronchodilators with albuterol/ipratropium aerosols every 6 hours PRN -Hob elevated. -s/p left 36Fr chest tube 10/18: 1L sanguinous output: d/c 10/21 - s/p 36 Fr chest tubes x 2 in OR 10/19 - all CTs to suction. - Dr. Campos following - gently anticoagulate with chest tubes still in place to watch output. if therapeutic on anticoagulation without further bleeding: - d/c one chest tube 10/23 - d/c last chest tube 10/24 - keep in ICU one additional day, transition out of ICU 10/25 if continues to be stable. - would wait until 10/25 to start oral anticoagulation. CV: Hemorrhagic shock- resolved Lactic acidosis- resolved s/p off-pump CABG x 4 09/29 Immediate post-op STEMI Post-op Graft thrombosis - off vasopressors - SL IV. - trend hgb - transfuse to keep hgb > 7 -At home on Arixtra 7.5 mg subcu daily. Changed to Argatroban gtt but now on hold due to hemorrhagic shock. -Continue statins. No beta-maryjo secondary to hypotension -Previously on 09/29/2018, patient had a CABG x4 followed by hyper acute graft occlusion. She was taken emergently to the dental laboratory technology teacher by Dr. Melissa where she - had completely occluded grafts. Patient underwent MAXWELL to OM1, LAD. balloon angioplasty to OM2. -Echo preliminary does not show any evidence of RV dysfunction. No indication for TPA Renal: Acute kidney insufficiency- improving. -Monitor renal function, I/O's, electrolytes replacement per protocol. -Holding Lasix due to hypotension -Previous renal ultrasound indicated medical renal disease. FEN/GI: - slowly advance diet., IV Protonix -Previous transaminitis has resolved Heme/ID: Acute pulmonary embolism while on Arixtra Acute graft thrombosis Normocytic anemia RV apex thrombus Heparin Induced Thrombocytopenia Hemorrhagic shock -Discussed with managed care liaison Dr. Curry - see above anticoag plan. - continue DAPT -Previously HIT positive ID: -d/c'd abx. cultures negative at 72h. watch for new fevers. -Sputum blood and urine culture: NGTD Endo: Type 2 diabetes -SSI with accuchecks -Hold long-acting insulin Prophylaxis: -argatroban drip -Pantoprazole Lines: -piv Keep in ICU. (6) Diabetes mellitus Qualifiers: Diabetes mellitus complication status: with circulatory complication
--- NOTE | 2018-10-22 15:47 | P.PNCA ---
Subjective Interval history: Appears stable Complains of pain all over Medications and Allergies Active Medications: Active Medications Hydrocodone Bitart/Acetaminophen ([place] 5/325) 1 tab PO Q4H PRN PRN Reason: PAIN 1-10 Last Admin: 10/21/18 21:13 Dose: 1 tab Al Hydroxide/Mg Hydroxide (Milk Of [place] Liq) 30 ml PO Q12H PRN PRN Reason: Mild Constipation Albuterol (Albuterol Neb (Prn)) 2.5 mg NEB Q2HR NEB PRN PRN Reason: SHORTNESS OF BREATH/WHEEZING Albuterol (Duoneb Neb (Goldy)) 1 ampul NEB Q4HR NEB GOLDY Last Admin: 10/22/18 12:24 Dose: Not Given Bisacodyl (Dulcolax Supp) 10 mg RECTAL DAILY PRN PRN Reason: SEVERE CONSITIPATION Chlorhexidine Gluconate (Chlorhexidine 2% Cloth) 3 pack TOPICAL DAILY@0400 GOLDY Stop: 10/23/18 03:59 Last Admin: 10/22/18 06:07 Dose: 3 pack Chlorhexidine Gluconate (Chlorhexidine 2% Cloth) 3 pack TOPICAL DAILY@0400 PRN PRN Reason: Extra cloth needed Stop: 10/23/18 03:59 Clopidogrel Bisulfate (Plavix) 75 mg PO DAILY GOLDY Last Admin: 10/22/18 08:25 Dose: 75 mg Dextrose (D50w Vial) 50 ml IV.PUSH UNSCH PRN PRN Reason: PER HYPOGLYCEMIA PROTOCOL Furosemide (Lasix) 40 mg PO DAILY PRN PRN Reason: SEE LABEL COMMENTS Glucagon (Glucagon Inj) 1 mg OTHER PRN PRN PRN Reason: for Hypoglycemia Protocol Argatroban 250 mg/ Sodium (Chloride) 250 mls @ 2.32 mls/hr IV.CONT TITRATE PRN ; Protocol PRN Reason: Per Protocol Last Titration: 10/21/18 18:33 Dose: 1 mcg/kg/min, 4.65 mls/hr Morphine Sulfate (Morphine Inj) 30 mg in 30 mls @ 0 mls/hr MANAGER ORGANIZATIONAL UNSCH PRN PRN Reason: prn pain Last Admin: 10/21/18 12:51 Dose: 0 mls/hr Insulin Human Regular (Novolin R Correctional Sugar Inj) 0 units SQ Q6HR GOLDY; Protocol Last Admin: 10/22/18 12:08 Dose: 3 units Lactulose (Lactulose Liq) 30 ml PO DAILY PRN PRN Reason: SEVERE CONSITIPATION Naloxone HCl (Narcan Inj) 0.4 mg IV.PUSH PRN PRN PRN Reason: Resp rate < 10 Ondansetron HCl (Zofran Inj) 4 mg IV.PUSH Q6H PRN PRN Reason: NAUSEA OR VOMITING Last Admin: 10/20/18 21:06 Dose: 4 mg Pantoprazole Sodium (Protonix Inj) 40 mg IV.PUSH DAILY [facility] Last Admin: 10/22/18 08:24 Dose: 40 mg Ranolazine (Ranexa) 500 mg PO Q12H [facility] Last Admin: 10/22/18 06:08 Dose: 500 mg Senna/Docusate Sodium (Jacqui-Colace) 1 tab PO BID [facility] Last Admin: 10/22/18 08:25 Dose: 1 tab Sennosides (Senokot) 17.2 mg PO Q12H PRN PRN Reason: Moderate Constipation Sertraline HCl (Zoloft) 50 mg PO DAILY [facility] Last Admin: 10/22/18 08:25 Dose: 50 mg Sodium Chloride (Ns Flush) 2 ml IV.FLUSH BID [facility] Last Admin: 10/22/18 08:26 Dose: 2 ml Sodium Chloride (Ns Flush) 2 ml IV.FLUSH PRN PRN PRN Reason: FLUSH AFTER USING IV ACCESS Temazepam (Restoril) 7.5 mg PO HS [facility] Last Admin: 10/22/18 06:06 Dose: Not Given Allergies Allergy/AdvReac Type Severity Reaction Status Date / Time heparin Allergy Severe HEPARIN-INDUCED Verified 10/17/18 09:15 THROMBOCYTOPENIA metoprolol Allergy Severe HALLUCINATI Verified 10/17/18 09:15 ONS famotidine Allergy Unknown RASH Verified 10/17/18 09:15 lisinopril Allergy Unknown Itching Verified 10/17/18 09:15 insulin detemir AdvReac Unknown Diarrhea Verified 10/17/18 09:15 Home Medications Medication Instructions Recorded Confirmed Type aspirin [Aspir-81] 81 mg PO DAILY 08/03/18 10/17/18 History atorvastatin 20 mg PO DAILY 08/03/18 10/17/18 History insulin glargine [Lantus U-100 38 unit SUB-Q DAILY 08/03/18 10/17/18 History Insulin] insulin lispro [Humalog U-100 30 unit SUB-Q TIDAC 08/03/18 10/17/18 History Insulin] methocarbamol 500 mg PO QID 08/03/18 10/17/18 History nitroglycerin 0.3 mg SUBLINGUAL Q5-15M PRN 08/03/18 10/17/18 History sertraline 50 mg PO DAILY 08/03/18 10/17/18 History temazepam 7.5 mg PO HS 08/03/18 10/17/18 History docusate sodium [DOK] 100 mg PO BID PRN 10/17/18 10/17/18 History Physical Exam Vital signs: Vital Signs 10/21/18 16:00 10/21/18 16:58 10/21/18 20:00 Temperature 99.7 F H Pulse Rate 89 92 H 96 H Respiratory Rate 19 20 14 Blood Pressure 105/70 103/76 Pulse Oximetry 98 96 10/21/18 23:30 10/21/18 23:32 10/21/18 23:43 Temperature Pulse Rate 97 H Respiratory Rate 18 16 Blood Pressure Pulse Oximetry 100 10/22/18 00:00 10/22/18 02:57 10/22/18 04:00 Temperature 99.5 F 99.4 F Pulse Rate 93 H 90 88 Respiratory Rate 18 18 18 Blood Pressure 95/67 L 116/72 Pulse Oximetry 95 95 10/22/18 08:00 10/22/18 09:00 10/22/18 12:00 Temperature 98.5 F 97.8 F Pulse Rate 88 92 H 90 Respiratory Rate 20 18 Blood Pressure 119/75 127/79 Pulse Oximetry 96 98 Intake & Output 10/21/18 10/22/18 10/22/18 18:59 06:59 18:59 Intake Total 1480 / 1480 590 / 590 Output Total 634 / 634 550 / 550 Balance 846 / 846 40 / 40 Weight 83 kg Intake: IV 1000 / 1000 Oral 480 / 480 Other 590 / 590 Output: Urine Amount (Catheter) 500 / 500 550 / 550 Indwelling Urethral Catheter 500 / 500 550 / 550 Chest Tube Drainage 134 / 134 #1Y and #2Y Left Mid-Axillary 120 / 120 Chest Y Connected Left Mid-Axillary Chest 14 / 14 Other: # Bowel Movements 0 Narrative: General: Middle-aged female, laying in bed, appears to be acutely ill. HEENT: Head atraumatic normal cephalic, conjunctivae pale, sclerae anicteric, oral exam dry mucous membranes. Neck exam no cervical lymphadenopathy, she has a left-sided IJ triple lumen catheter. Respiratory: Breath sounds appear more clearly bilaterally Cardiovascular: Regular rate and rhythm, S1-S2 no obvious murmurs rubs gallops. Well-healing sternotomy incision noted. Abdominal: Protuberant abdomen, soft, no obvious tenderness, positive bowel sounds no palpable organ enlargement. Lower extremities no pretibial edema no calf tenderness. MARKET SPECIALIST: No focal deficits Skin: Nonfocal examination. Muscular skeletal: Adequate muscle mass, tone and strength. - Urinary Catheter Management Straight Cath placed during this visit: yes Reason for continuing: Acute urinary retention Insertion date: 10/18/18 Insertion time: 09:30 Indwelling Urethral Catheter Cath placed during this visit: yes, but has since been removed by the nurse Reason for continuing: Not indwelling catheter Insertion date: 10/18/18 Insertion time: :30 Removal date: 10/21/18 Removal time: 18:00 Results 10/22/18 00:53 10/22/18 00:53 Coagulation 10/21/18 10/21/18 10/21/18 Range/Units 09:53 12:25 16:20 APTT 25.1 44.6 H D 46.1 H (23.4-31.7) sec 10/21/18 10/22/18 10/22/18 Range/Units 20:28 00:53 05:36 APTT 32.7 H D 52.8 H D 57.7 H (23.4-31.7) sec CBC 10/21/18 10/22/18 Range/Units 05:05 00:53 WBC 8.2 7.0 (4.0-11.0) th/mm3 RBC 2.88 L 2.89 L (4.00-5.30) mil/mm3 Hgb 8.7 L 8.7 L (11.6-15.3) gm/dL Hct 24.9 L 25.0 L (35.0-46.0) % Plt Count 251 253 (150-450) th/mm3 Comprehensive Metabolic Panel 10/21/18 10/22/18 Range/Units 05:05 00:53 Sodium 136 136 (136-145) meq/L Potassium 4.1 4.3 (3.5-5.1) meq/L Chloride 105 105 (98-107) meq/L Carbon Dioxide 26.8 25.1 (21.0-32.0) meq/L BUN 10 11 (7-18) mg/dL Creatinine 0.86 0.73 (0.50-1.00) mg/dL Calcium 7.7 L 7.7 L (8.5-10.1) mg/dL Intake and Output 10/22/18 10/22/18 10/22/18 06:59 14:59 22:59 Intake Total 590 / 590 Output Total 550 / 550 Balance 40 / 40 Intake: Other 590 / 590 Output: Urine Amount (Catheter) 550 / 550 Indwelling Urethral Catheter 550 / 550 Other: Weight 83 kg - Imaging and Cardiology Imaging: Impressions Chest CT 10/21/18 00:00 CONCLUSION: 1. There is only a very small volume of left pleural fluid. Most of the opacity on the left on the recent chest x-ray represents a combination of airspace consolidation and subsegmental atelectasis. 2. There are 3 large bore left chest tubes in place without a significant pneumothorax. The superior chest tube is partially filled with fluid. 3. There is airspace opacity in the right lower lobe with an appearance favoring subsegmental atelectasis. There is also trace right pleural fluid. Assessment and Plan - Assessment (1) Hemothorax Code(s): J94.2 - Hemothorax Status: Acute (2) Elevated troponin Code(s): R74.8 - Abnormal levels of other serum enzymes Status: Acute (3) CAD (coronary artery disease), [place] coronary artery Code(s): I25.10 - Atherosclerotic heart disease of [place] coronary artery without angina pectoris Status: Chronic (4) S/P coronary artery bypass graft x 4 Code(s): Z95.1 - Presence of aortocoronary bypass graft Status: Chronic (5) Heparin induced thrombocytopenia (HIT) Code(s): D75.82 - Heparin induced thrombocytopenia (HIT) Status: Chronic (6) Pneumonia Code(s): J18.9 - Pneumonia, unspecified organism Status: Acute (7) Acute pulmonary embolism Code(s): I26.99 - Other pulmonary embolism without acute cor pulmonale Status : Acute - Plan 1) Hx of CAD, previous CABGx4 with acute graft closure due to HIT, s/p complex PCI Unfortunately with recent complex PCI would not stop Plavix due to high risk of stent thrombosis 2) Hemothorax Chest tube placed by critical care VATS POD#[address] Plan to remove over next few days if stable 3) Possible PNA Will have to see after left hemothorax is drained if truly PNA 4) Acute pulmonary embolism Argatroban restarted 5) Minimal elevated troponins secondary to pulmonary embolism as well as recent events No acute coronary syndrome noted 6) Complex case Ultimately need to be on combination of anticoagulation/antiplatelet Started on Argatroban, continue Plavix and stop ASA
[2018-10-23] MEDS: Argatroban Inj 250 MG in Sodium Chlor 0.9% Inj 247.5 ML IV.CONT PRN (02:33)
--- NOTE | 2018-10-23 04:19 | XR ---
EXAM DATE: 10/23/2018 4:09 AM EST AGE/SEX: 58 years / Female INDICATIONS: shortness of breath, possible pulmonary disease. CLINICAL DATA: This is the patient's subsequent encounter. Patient reports that signs and symptoms h ave been present for 4 - 6 days and indicates a pain score of Nonresponsive. MEDICAL/SURGICAL HISTORY: Cardiovascular disease. Diabetes. Myocardial infarction. CABG. Hys terectomy. COMPARISON: [facility] [place], CT CHEST W/O CONTRAST, 10/21/2018. [facility] [place], CHEST 1V SINGLE AP, 10/20/2018. . FINDINGS: Portable AP view of the chest demonstrates a normal-sized cardiac silhouette in this patient post med heavenly sternotomy. EKG lines overlie the patient and 2 left chest tubes are present. The more superior c hest tube has been removed in the interval. The endotracheal tube and left IJ central line have also been removed. No pneumothorax is identified. There is a stable pleural-parenchymal opacity on the lef t. CONCLUSION: 2 left chest tubes remain present and no pneumothorax is visualized. Airspace consolidation and pleur al-based opacity on the left are stable. Electronically signed by: Dave Kaye MD 10/23/2018 4:18 AM EST
[2018-10-23 04:25] LABS: Hematocrit 26.9 % (35.0-46.0); Hemoglobin 9.1 gm/dL (11.6-15.3); Mean Corpuscular HGB Conc 33.9 % (32.0-36.0); Mean Corpuscular Hemoglobin 29.8 pg (27.0-34.0); Mean Corpuscular Volume 88.1 fL (80.0-100.0); Platelet Count 291 th/mm3 (150-450); Red Blood Count 3.06 mil/mm3 (4.00-5.30); Red Cell Distribution Width 14.9 % (11.6-17.2); White Blood Count 6.6 th/mm3 (4.0-11.0)
[2018-10-23 04:51] LABS: Anion Gap 6 meq/L (5-15); Blood Urea Nitrogen 7 mg/dL (7-18); Calcium 7.5 mg/dL (8.5-10.1); Carbon Dioxide 25.2 meq/L (21.0-32.0); Chloride 106 meq/L (98-107); Glomerular Filtration Rate Greater Than 89 mL/min (>89); Glucose,Random 135 mg/dL (74-106); Phosphorus 2.2 mg/dL (2.5-4.9); Potassium 3.9 meq/L (3.5-5.1); Sodium 137 meq/L (136-145)
[2018-10-23] MEDS: Ranolazine 500 MG 12HR ER Tablet PO SCH ×2 (05:14→17:46)
[2018-10-23] MEDS: Insulin NovoLIN Regular Correctional Sugar Inj SQ SCH ×5 (05:15→23:44)
[2018-10-23] MEDS: Pantoprazole Inj 40 MG Vial IV.PUSH SCH (08:03)
[2018-10-23] MEDS: Senna/Docusate Sodium 8.6/50 MG Tablet PO SCH ×2 (08:04→20:25)
[2018-10-23] MEDS: Sertraline 50 MG Tablet PO SCH (08:04)
[2018-10-23 11:12] LABS: Albumin 2.3 g/dL (3.4-5.0)
[2018-10-23 11:14] LABS: Total Protein 6.3 g/dL (6.4-8.2)
--- NOTE | 2018-10-23 11:19 | P.PNONC ---
Subjective Interval history: Afebrile 1 of the chest tubes were pulled this morning by the associate art director No bleeding Patient reports Tums helped her gas type pain yesterday They are asking how long she will need to be on the argatroban Objective Vital Signs/Intake & Output: Vital Signs 10/22/18 12:00 10/22/18 16:00 10/22/18 20:00 Temperature 97.8 F 98.1 F 98.2 F Pulse Rate 90 94 H 96 H Respiratory Rate 18 20 25 H Blood Pressure 127/79 121/79 122/79 Pulse Oximetry 98 97 97 10/22/18 20:06 10/23/18 00:00 10/23/18 00:21 Temperature 98.3 F Pulse Rate 100 H 96 H 97 H Respiratory Rate 28 H 26 H 24 Blood Pressure 129/80 Pulse Oximetry 94 L 97 10/23/18 04:00 10/23/18 04:31 10/23/18 08:00 Temperature 98 F 98.9 F Pulse Rate 93 H 91 H 90 Respiratory Rate 26 H 16 24 Blood Pressure 129/82 145/95 H Pulse Oximetry 96 97 10/23/18 09:00 Temperature Pulse Rate 94 H Respiratory Rate Blood Pressure Pulse Oximetry Intake & Output 10/22/18 10/23/18 10/23/18 18:59 06:59 18:59 Intake Total 500 / 500 750 / 750 Output Total 70 / 70 1280 / 1280 Balance 430 / 430 -530 / -530 Weight 181 lb 14.102 oz Intake: IV 250 / 250 Novastan Inj 250 MG In NS Inj 250 / 250 247.5 ML @ 0.5 MCG/KG/MIN 2.32 mls/hr IV.CONT TITRATE PRN Rx#: [id number] Oral 500 / 500 500 / 500 Output: Pleural Fluid 70 / 70 Urine Amount (Catheter) 1200 / 1200 Straight 1200 / 1200 Chest Tube Drainage 80 / 80 #1Y and #2Y Left Mid-Axillary 80 / 80 Chest Y Connected Other: # Bowel Movements 0 0 Result Diagrams: 10/23/18 03:34 10/23/18 03:34 Laboratory Results: Laboratory Results - last 24 hr 10/22/18 10/22/18 10/22/18 11:43 17:12 23:54 WBC RBC Hgb Hct MCV MCH MCHC RDW Plt Count MPV Sodium Potassium Chloride Carbon Dioxide Anion Gap BUN Creatinine Estimated GFR POC Glucose 236 H 241 H 271 H Random Glucose Calcium Phosphorus Magnesium Total Bilirubin Direct Bilirubin Indirect Bilirubin AST ALT Alkaline Phosphatase Total Protein Albumin 10/23/18 10/23/18 10/23/18 03:34 03:34 03:34 WBC 6.6 RBC 3.06 L Hgb 9.1 L Hct 26.9 L MCV 88.1 MCH 29.8 MCHC 33.9 RDW 14.9 Plt Count 291 MPV 7.0 Sodium 137 Potassium 3.9 Chloride 106 Carbon Dioxide 25.2 Anion Gap 6 BUN 7 Creatinine 0.60 Estimated GFR Greater than 89 POC Glucose Random Glucose 135 H D Calcium 7.5 L Phosphorus 2.2 L Magnesium 2.0 Total Bilirubin 0.9 Direct Bilirubin 0.4 H Indirect Bilirubin 0.5 AST 28 ALT 33 Alkaline Phosphatase 362 H Total Protein 6.3 L Albumin 2.3 L 10/23/18 05:08 WBC RBC Hgb Hct MCV MCH MCHC RDW Plt Count MPV Sodium Potassium Chloride Carbon Dioxide Anion Gap BUN Creatinine Estimated GFR POC Glucose 114 H Random Glucose Calcium Phosphorus Magnesium Total Bilirubin Direct Bilirubin Indirect Bilirubin AST ALT Alkaline Phosphatase Total Protein Albumin Culture Results: Microbiology 10/17/18 09:45 Aerobic Blood Culture - Final Blood - Peripheral No growth in 5 days Anaerobic Blood Culture - Final No growth in 5 days 10/17/18 09:35 Aerobic Blood Culture - Final Blood - Peripheral No growth in 5 days Anaerobic Blood Culture - Final No growth in 5 days 10/18/18 09:30 Urine Culture - Final Catheterized Urine No growth in 48 hours 10/17/18 22:45 Urine Culture - Final Catheterized Urine No growth in 48 hours Imaging Studies: Impressions Chest X-Ray 10/23/18 05:00 CONCLUSION: 2 left chest tubes remain present and no pneumothorax is visualized. Airspace consolidation and pleural-based opacity on the left are stable. Medications: Active Medications Generic Name Dose Route Start Last Admin Trade Name Freq PRN Reason Stop Dose Admin Hydrocodone Bitart/Acetaminophen 1 tab 10/21/18 11:36 10/21/18 21:13 [place] 5/325 PO 1 tab Q4H PRN Administration PAIN 1-10 Albuterol 1 ampul 10/17/18 12:00 10/23/18 10:02 Duoneb Neb (Estelle) NEB Not Given Q4HR NEB ESTELLE Calcium Carbonate 500 mg 10/22/18 15:48 10/23/18 08:04 Tums Chew CHEW 500 mg Q6H PRN Administration INDIGESTION Clopidogrel Bisulfate 75 mg 10/18/18 09:00 10/23/18 08:04 Plavix PO 75 mg DAILY ESTELLE Administration Argatroban 250 mg/ Sodium 250 mls @ 2.32 mls/hr 10/21/18 10:00 10/23/18 02:33 Chloride IV.CONT 1.25 mcg/kg/min TITRATE PRN 5.81 mls/hr Per Protocol Administration Protocol 0.5 MCG/KG/MIN Morphine Sulfate 30 mg in 30 mls @ 0 mls/hr 10/21/18 11:35 10/23/18 05:16 Morphine Inj DATA ANALYTICS ANALYST 0 mls/hr UNSCH PRN Infusion prn pain 0 MG/HR Insulin Human Regular 0 units 10/17/18 18:00 10/23/18 05:15 Novolin R Correctional Sugar Inj SQ Not Given Q6HR [facility] Protocol Ondansetron HCl 4 mg 10/19/18 19:50 10/20/18 21:06 Zofran Inj IV.PUSH 4 mg Q6H PRN Administration NAUSEA OR VOMITING Pantoprazole Sodium 40 mg 10/18/18 09:00 10/23/18 08:03 Protonix Inj IV.PUSH 40 mg DAILY ESTELLE Administration Ranolazine 500 mg 10/17/18 18:00 10/23/18 05:14 Ranexa PO 500 mg Q12H ESTELLE Administration Senna/Docusate Sodium 1 tab 10/17/18 21:00 10/23/18 08:04 Jacqui-Colace PO 1 tab BID ESTELLE Administration Sertraline HCl 50 mg 10/18/18 09:00 10/23/18 08:04 Zoloft PO 50 mg DAILY ESTELLE Administration Sodium Chloride 2 ml 10/17/18 21:00 10/23/18 08:05 Ns Flush IV.FLUSH 2 ml BID ESTELLE Administration Temazepam 7.5 mg 10/17/18 21:00 10/22/18 20:30 Restoril PO 7.5 mg HS ESTELLE Administration Objective Remarks: GENERAL: Fatigued, chronically ill-appearing older female resting in bed in no acute distress SKIN: Warm and dry. HEAD: Normocephalic. EYES: No scleral icterus. No injection or drainage. NECK: Supple, trachea midline. CARDIOVASCULAR: Regular rate and rhythm. RESPIRATORY: Diminished breath sounds. Left-sided chest tube with scant amount sanguinous drainage noted. GASTROINTESTINAL: Abdomen soft, non-tender, nondistended. EXTREMITIES: No cyanosis, or edema. MUSCULOSKELETAL: Adequate muscle tone. NEUROLOGICAL: Awake and alert. Follows commands. Normal speech. No obvious focal deficit. Assessment/Plan - Plan Ms. Lira is a 58-year-old female with multiple medical comorbid conditions including long-standing history of diabetes, chronic kidney disease, coronary artery disease, recent CABG with hyperacute thromboses of the grafts. The hyper acute thrombosis was attributed to an underlying heparin-induced thrombocytopenia with thrombosis (AKILAH). The patient had been on therapeutic anticoagulation with Arixtra in combination with dual antiplatelet therapy with Plavix and aspirin. The patient returned to the emergency room after 1 week with increased chest pain and associated shortness of breath. CTA showed she has small volume right sided pulmonary embolism associated with complicated/ loculated left-sided pleural effusion concerning for hemothorax. Hematology service has been asked to see this patient to reconcile the competing issues i.e. ongoing hemo-thorax with drop in hemoglobin hematocrit in the setting of heparin-induced thrombocytopenia with a pulmonary embolism. Recommendations: 1. Left-sided hemothorax: Underwent video-assisted thoracoscopic surgery (VATS ) on 10/19/2018. Blood and clots amounting to approximately 900 cc were evacuated. There was no suggestion of active/ongoing bleeding intraoperatively. Patient presently with 1 chest tube. Only a scant amount of drainage noted in collection device. 2. Recent history of heparin-induced thrombocytopenia with thrombosis (AKILAH), hyperacute thromboses of coronary artery grafts, she also has a thrombus within the right ventricle: Patient will continue with argatroban for anticoagulation. She is not having any bleeding. Her hemoglobin is stable. Liver enzymes currently pending. 3. Anticipate transitioning her to oral anticoagulation sometime this week with possibly Pradaxa. Dr. Curry to make recommendation. - Attending Statement The exam, history, and the medical decision-making described in the above note were completed with the assistance of the mid-level provider. I reviewed and agree with the findings presented. I attest that I had a [id number] encounter with the patient on the same day, and personally performed and documented my assessment and findings in the medical record. Patient is feeling better. She is sitting up in the chair. One chest tube was pulled. No bleeding noted. Hemoglobin stable. Platelet count also stable. She remains on Argatroban. Can transition her to oral anticoagulant if no invasive procedures are planned.
--- NOTE | 2018-10-23 11:48 | P.PNCV ---
- Note Subjective/Hospital Course: t 58-year-old female known to our service This patient presented to [facility] in early September with complaints of chest pain, she was found to have multivessel disease on cardiac catheterization. She was advised CABG, she underwent a four-vessel CABG on 09/29/2018. The same day she developed ST elevation [place] with hyper acute thromboses of multiple grafts. That same night the patient required coronary artery stenting with multiple stents placed within the occluded coronary artery grafts. 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 She was initiated subsequently on Arixtra for management of hit. The patient also was on dual antiplatelet therapy with aspirin and Plavix. She was discharged home 1 week ago, she reports doing well at home up until the morning of 10/17/2018, she woke up at 4:30 AM with chest pain and difficulty breathing. She took 2 nitroglycerin about 10 minutes apart to help relieve the chest pain but this did not help. She subsequently called 911 close to 7 AM and was brought in to [facility] emergency department. CT angiogram of the thorax which revealed new right-sided pulmonary emboli ( small volume) and a new left-sided complicated pleural effusion. She was also noted to be hypotensive, she was initiated on IV fluid resuscitation and then required pressor support. She has been evaluated by cardiology, she was initiated on anticoagulation argatroban gtt , repeat ct chest should worsening left-sided pleural effusion which appears to be complicated. Over the course of the past 24 hours her hemoglobin has dropped down from 9.9 g/dL at presentation down to 6.6 g/dL she has received total of 4 units PRBC 10/18 pt require large bore left chest tube placed by [facility] , # 36 [place] of [place] 700 mL dark sanguinous output. concern is for persistent clots plan is to repeat CT chest on 10/19 for left VATS evacuation of hemothorax today / multiple clots in chest tube 1. Left video-Assisted Thoracoscopic Surgery (VATS). 2. Evacuation of Hemothorax 3. Intercostal Nerve Block 10/20 pt extubated now has 3 chest tubes, no air leak / bloody drainage awake and follows commands 10/21 less drainage from chest tubes -plan gently anticoagulate with chest tubes still in place to watch output. if therapeutic on anticoagulation without further bleeding x 48h, would discontinue chest tubes at that time (earliest Tuesday 10/23) 10/23 Clinically and hemodynamically stable Minimal drainage from chest tubes Will DC 1 of 2 tubes Plan to remove the second tube tomorrow if output remains stable Objective: Vital Signs - 24 hr 10/22/18 12:00 10/22/18 16:00 10/22/18 20:00 Temperature 97.8 F 98.1 F 98.2 F Pulse Rate 90 94 H 96 H Respiratory Rate 18 20 25 H Blood Pressure 127/79 121/79 122/79 Pulse Oximetry 98 97 97 10/22/18 20:06 10/23/18 00:00 10/23/18 00:21 Temperature 98.3 F Pulse Rate 100 H 96 H 97 H Respiratory Rate 28 H 26 H 24 Blood Pressure 129/80 Pulse Oximetry 94 L 97 10/23/18 04:00 10/23/18 04:31 10/23/18 08:00 Temperature 98 F 98.9 F Pulse Rate 93 H 91 H 90 Respiratory Rate 26 H 16 24 Blood Pressure 129/82 145/95 H Pulse Oximetry 96 97 10/23/18 09:00 Temperature Pulse Rate 94 H Respiratory Rate Blood Pressure Pulse Oximetry Labs: Laboratory Results - last 12 hr 10/22/18 10/23/18 10/23/18 23:54 03:34 03:34 WBC 6.6 RBC 3.06 L Hgb 9.1 L Hct 26.9 L MCV 88.1 MCH 29.8 MCHC 33.9 RDW 14.9 Plt Count 291 MPV 7.0 APTT Sodium 137 Potassium 3.9 Chloride 106 Carbon Dioxide 25.2 Anion Gap 6 BUN 7 Creatinine 0.60 Estimated GFR Greater than 89 POC Glucose 271 H Random Glucose 135 H D Calcium 7.5 L Phosphorus 2.2 L Magnesium 2.0 Total Bilirubin Direct Bilirubin Indirect Bilirubin AST ALT Alkaline Phosphatase Total Protein Albumin 10/23/18 10/23/18 10/23/18 03:34 05:08 10:40 WBC RBC Hgb Hct MCV MCH MCHC RDW Plt Count MPV APTT 56.6 H Sodium Potassium Chloride Carbon Dioxide Anion Gap BUN Creatinine Estimated GFR POC Glucose 114 H Random Glucose Calcium Phosphorus Magnesium Total Bilirubin 0.9 Direct Bilirubin 0.4 H Indirect Bilirubin 0.5 AST 28 ALT 33 Alkaline Phosphatase 362 H Total Protein 6.3 L Albumin 2.3 L Result Diagrams: 10/23/18 03:34 10/23/18 03:34 - Plan (2) Diabetes mellitus (6) Heparin induced thrombocytopenia (HIT) Plan: on argatroban (9) Acute pulmonary embolism Plan: pt on argatroban (10) Hemothorax Plan: keep chest tube in for now - gently anticoagulate with chest tubes still in place to watch output. if therapeutic on anticoagulation without further bleeding x 48h, would discontinue chest tubes at that time (earliest Tuesday 10/23) (2) Diabetes mellitus Qualifiers: Diabetes mellitus complication status: with circulatory complication
--- NOTE | 2018-10-23 13:20 | P.PNCA ---
Subjective Interval history: No events overnight Clinically appears better today 1 chest tube out today Medications and Allergies Active Medications: Active Medications Hydrocodone Bitart/Acetaminophen ([place] 5/325) 1 tab PO Q4H PRN PRN Reason: PAIN 1-10 Last Admin: 10/21/18 21:13 Dose: 1 tab Al Hydroxide/Mg Hydroxide (Milk Of Magnesia Liq) 30 ml PO Q12H PRN PRN Reason: Mild Constipation Albuterol (Albuterol Neb (Prn)) 2.5 mg NEB Q2HR NEB PRN PRN Reason: SHORTNESS OF BREATH/WHEEZING Albuterol (Duoneb Neb (Estelle)) 1 ampul NEB Q4HR NEB ESTELLE Last Admin: 10/23/18 11:58 Dose: 1 ampul Bisacodyl (Dulcolax Supp) 10 mg RECTAL DAILY PRN PRN Reason: SEVERE CONSITIPATION Calcium Carbonate (Tums Chew) 500 mg CHEW Q6H PRN PRN Reason: INDIGESTION Last Admin: 10/23/18 08:04 Dose: 500 mg Clopidogrel Bisulfate (Plavix) 75 mg PO DAILY ESTELLE Last Admin: 10/23/18 08:04 Dose: 75 mg Dextrose (D50w Vial) 50 ml IV.PUSH UNSCH PRN PRN Reason: PER HYPOGLYCEMIA PROTOCOL Furosemide (Lasix) 40 mg PO DAILY PRN PRN Reason: SEE LABEL COMMENTS Glucagon (Glucagon Inj) 1 mg OTHER PRN PRN PRN Reason: for Hypoglycemia Protocol Argatroban 250 mg/ Sodium (Chloride) 250 mls @ 2.32 mls/hr IV.CONT TITRATE PRN ; Protocol PRN Reason: Per Protocol Last Admin: 10/23/18 02:33 Dose: 1.25 mcg/kg/min, 5.81 mls/hr Morphine Sulfate (Morphine Inj) 30 mg in 30 mls @ 0 mls/hr CARRIER PACKER UNSCH PRN PRN Reason: prn pain Last Infusion: 10/23/18 05:16 Dose: 0 mls/hr Insulin Human Regular (Novolin R Correctional Sugar Inj) 0 units SQ Q6HR ESTELLE; Protocol Last Admin: 10/23/18 12:02 Dose: 15 units Lactulose (Lactulose Liq) 30 ml PO DAILY PRN PRN Reason: SEVERE CONSITIPATION Naloxone HCl (Narcan Inj) 0.4 mg IV.PUSH PRN PRN PRN Reason: Resp rate < 10 Ondansetron HCl (Zofran Inj) 4 mg IV.PUSH Q6H PRN PRN Reason: NAUSEA OR VOMITING Last Admin: 10/20/18 21:06 Dose: 4 mg Pantoprazole Sodium (Protonix Inj) 40 mg IV.PUSH DAILY [facility] Last Admin: 10/23/18 08:03 Dose: 40 mg Ranolazine (Ranexa) 500 mg PO Q12H [facility] Last Admin: 10/23/18 05:14 Dose: 500 mg Senna/Docusate Sodium (Jacqui-Colace) 1 tab PO BID [facility] Last Admin: 10/23/18 08:04 Dose: 1 tab Sennosides (Senokot) 17.2 mg PO Q12H PRN PRN Reason: Moderate Constipation Sertraline HCl (Zoloft) 50 mg PO DAILY [facility] Last Admin: 10/23/18 08:04 Dose: 50 mg Sodium Chloride (Ns Flush) 2 ml IV.FLUSH BID [facility] Last Admin: 10/23/18 08:05 Dose: 2 ml Sodium Chloride (Ns Flush) 2 ml IV.FLUSH PRN PRN PRN Reason: FLUSH AFTER USING IV ACCESS Temazepam (Restoril) 7.5 mg PO HS [facility] Last Admin: 10/22/18 20:30 Dose: 7.5 mg Allergies Allergy/AdvReac Type Severity Reaction Status Date / Time heparin Allergy Severe HEPARIN-INDUCED Verified 10/17/18 09:15 THROMBOCYTOPENIA metoprolol Allergy Severe HALLUCINATI Verified 10/17/18 09:15 ONS famotidine Allergy Unknown RASH Verified 10/17/18 09:15 lisinopril Allergy Unknown Itching Verified 10/17/18 09:15 insulin detemir AdvReac Unknown Diarrhea Verified 10/17/18 09:15 Home Medications Medication Instructions Recorded Confirmed Type aspirin [Aspir-81] 81 mg PO DAILY 08/03/18 10/17/18 History atorvastatin 20 mg PO DAILY 08/03/18 10/17/18 History insulin glargine [Lantus U-100 38 unit SUB-Q DAILY 08/03/18 10/17/18 History Insulin] insulin lispro [Humalog U-100 30 unit SUB-Q TIDAC 08/03/18 10/17/18 History Insulin] methocarbamol 500 mg PO QID 08/03/18 10/17/18 History nitroglycerin 0.3 mg SUBLINGUAL Q5-15M PRN 08/03/18 10/17/18 History sertraline 50 mg PO DAILY 08/03/18 10/17/18 History temazepam 7.5 mg PO HS 08/03/18 10/17/18 History docusate sodium [DOK] 100 mg PO BID PRN 10/17/18 10/17/18 History Physical Exam Vital signs: Vital Signs 10/22/18 16:00 10/22/18 20:00 10/22/18 20:06 Temperature 98.1 F 98.2 F Pulse Rate 94 H 96 H 100 H Respiratory Rate 20 25 H 28 H Blood Pressure 121/79 122/79 Pulse Oximetry 97 97 94 L 10/23/18 00:00 10/23/18 00:21 10/23/18 04:00 Temperature 98.3 F 98 F Pulse Rate 96 H 97 H 93 H Respiratory Rate 26 H 24 26 H Blood Pressure 129/80 129/82 Pulse Oximetry 97 96 10/23/18 04:31 10/23/18 08:00 10/23/18 09:00 Temperature 98.9 F Pulse Rate 91 H 90 94 H Respiratory Rate 16 24 Blood Pressure 145/95 H Pulse Oximetry 97 10/23/18 12:00 Temperature 98.3 F Pulse Rate 86 Respiratory Rate 24 Blood Pressure 112/78 Pulse Oximetry 99 Intake & Output 10/22/18 10/23/18 10/23/18 18:59 06:59 18:59 Intake Total 500 / 500 750 / 750 Output Total 70 / 70 1280 / 1280 Balance 430 / 430 -530 / -530 Weight 82.5 kg Intake: IV 250 / 250 Novastan Inj 250 MG In NS Inj 250 / 250 247.5 ML @ 0.5 MCG/KG/MIN 2.32 mls/hr IV.CONT TITRATE PRN Rx#: [id number] Oral 500 / 500 500 / 500 Output: Pleural Fluid 70 / 70 Urine Amount (Catheter) 1200 / 1200 Straight 1200 / 1200 Chest Tube Drainage 80 / 80 #1Y and #2Y Left Mid-Axillary 80 / 80 Chest Y Connected Other: # Bowel Movements 0 0 Narrative: General: Middle-aged female, laying in bed, appears to be acutely ill. HEENT: Head atraumatic normal cephalic, conjunctivae pale, sclerae anicteric, oral exam dry mucous membranes. Neck exam no cervical lymphadenopathy, she has a left-sided IJ triple lumen catheter. Respiratory: Breath sounds appear more clearly bilaterally Cardiovascular: Regular rate and rhythm, S1-S2 no obvious murmurs rubs gallops. Well-healing sternotomy incision noted. Abdominal: Protuberant abdomen, soft, no obvious tenderness, positive bowel sounds no palpable organ enlargement. Lower extremities no pretibial edema no calf tenderness. OPTICAL ENGINEER: No focal deficits Skin: Nonfocal examination. Muscular skeletal: Adequate muscle mass, tone and strength. - Urinary Catheter Management Straight Cath placed during this visit: yes Reason for continuing: Not indwelling catheter Insertion date: 10/18/18 Insertion time: 09:30 Indwelling Urethral Catheter Cath placed during this visit: yes, but has since been removed by the nurse Reason for continuing: Not indwelling catheter Insertion date: 10/18/18 Insertion time: : Removal date: 10/21/18 Removal time: 18:00 Results 10/23/18 03:34 10/23/18 03:34 Cardiac Enzymes 10/23/18 Range/Units 03:34 AST 28 (15-37) U/L Coagulation 10/21/18 10/21/18 10/21/18 Range/Units 12:25 16:20 20:28 APTT 44.6 H D 46.1 H 32.7 H D (23.4-31.7) sec 10/22/18 10/22/18 10/23/18 Range/Units 00:53 05:36 10:40 APTT 52.8 H D 57.7 H 56.6 H (23.4-31.7) sec CBC 10/22/18 10/23/18 Range/Units 00:53 03:34 WBC 7.0 6.6 (4.0-11.0) th/mm3 RBC 2.89 L 3.06 L (4.00-5.30) mil/mm3 Hgb 8.7 L 9.1 L (11.6-15.3) gm/dL Hct 25.0 L 26.9 L (35.0-46.0) % Plt Count 253 291 (150-450) th/mm3 Comprehensive Metabolic Panel 10/22/18 10/23/18 10/23/18 Range/Units 00:53 03:34 03:34 Sodium 136 137 (136-145) meq/L Potassium 4.3 3.9 (3.5-5.1) meq/L Chloride 105 106 (98-107) meq/L Carbon Dioxide 25.1 25.2 (21.0-32.0) meq/L BUN 11 7 (7-18) mg/dL Creatinine 0.73 0.60 (0.50-1.00) mg/dL Calcium 7.7 L 7.5 L (8.5-10.1) mg/dL Direct Bilirubin 0.4 H (0.0-0.2) mg/dL Indirect Bilirubin 0.5 (0.0-0.8) mg/dL AST 28 (15-37) U/L ALT 33 (10-53) U/L Alkaline Phosphatase 362 H (45-117) U/L Total Protein 6.3 L (6.4-8.2) g/dL Albumin 2.3 L (3.4-5.0) g/dL Intake and Output 10/22/18 10/23/18 10/23/18 22:59 06:59 14:59 Intake Total 500 / 500 750 / 750 Output Total 70 / 70 1280 / 1280 Balance 430 / 430 -530 / -530 Intake: IV 250 / 250 Novastan Inj 250 MG In NS Inj 250 / 250 247.5 ML @ 0.5 MCG/KG/MIN 2.32 mls/hr IV.CONT TITRATE PRN Rx#: [id number] Oral 500 / 500 500 / 500 Output: Pleural Fluid 70 / 70 Urine Amount (Catheter) 1200 / 1200 Straight 1200 / 1200 Chest Tube Drainage 80 / 80 #1Y and #2Y Left Mid-Axillary 80 / 80 Chest Y Connected Other: # Bowel Movements 0 0 Weight 82.5 kg - Imaging and Cardiology Imaging: Impressions Chest X-Ray 10/23/18 05:00 CONCLUSION: 2 left chest tubes remain present and no pneumothorax is visualized. Airspace consolidation and pleural-based opacity on the left are stable. Assessment and Plan - Assessment (1) Hemothorax Code(s): J94.2 - Hemothorax Status: Acute (2) Elevated troponin Code(s): R74.8 - Abnormal levels of other serum enzymes Status: Acute (3) CAD (coronary artery disease), [place] coronary artery Code(s): I25.10 - Atherosclerotic heart disease of [place] coronary artery without angina pectoris Status: Chronic (4) S/P coronary artery bypass graft x 4 Code(s): Z95.1 - Presence of aortocoronary bypass graft Status: Chronic (5) Heparin induced thrombocytopenia (HIT) Code(s): D75.82 - Heparin induced thrombocytopenia (HIT) Status: Chronic (6) Pneumonia Code(s): J18.9 - Pneumonia, unspecified organism Status: Acute (7) Acute pulmonary embolism Code(s): I26.99 - Other pulmonary embolism without acute cor pulmonale Status : Acute - Plan 1) Hx of CAD, previous CABGx4 with acute graft closure due to HIT, s/p complex PCI Unfortunately with recent complex PCI would not stop Plavix due to high risk of stent thrombosis 2) Hemothorax Chest tube placed by critical care VATS POD#4 First chest tube removed Possible second to be removed tomorrow 3) Doubt PNA 4) Acute pulmonary embolism Argatroban restarted 5) Minimal elevated troponins secondary to pulmonary embolism as well as recent events No acute coronary syndrome noted 6) Complex case Ultimately need to be on combination of anticoagulation/antiplatelet Started on Argatroban, continue Plavix and stop ASA
--- NOTE | 2018-10-23 13:31 | P.PNCC ---
Subjective Subjective Remarks/Hospital Course: Hospital Course: Patient is a 58-year-old female with history of coronary artery disease, type 2 diabetes, who underwent off-pump CABG x 4 09/29/[address] Campos. Intraoperatively she had significant ST elevations, emergently taken to [facility] by by Dr. Melissa, found to have completely occluded grafts. Patient underwent MAXWELL to OM1, LAD. balloon angiopasty to OM2. Patient had a complicated course and was diagnosed with heparin-induced thrombocytopenia. A follow-up echo on 10/03/2018 showed EF 50-55%. Patient was eventually discharged on 10/10/2018 with a prescription for Arixtra however next day she had to be admitted for 1 day for as pharmacy did not have Arixtra. Arixtra was arranged and patient was discharged again on 10/11/2018. Today she presented to the emergency department for chest pain and shortness of breath. For systolic blood pressure in the 80s patient received IV fluid bolus by EMS. Chest x-ray showed extensive left-sided infiltrate/effusion. Presuming pneumonia and septic shock, patient received cefepime and azithromycin in the ED. Lactic acid was 2.1. Critical care was contacted for admission as after 2 L fluid boluses patient remained hypotensive I discussed with Dr. Kearns, recommended additional 1 more liter fluid bolus, and start Levophed if patient remains hypotensive. I also recommended stat CT Chest PE protocol. This showed pulmonary embolism in right lower lobe segmental and subsegmental branches. Also there was extensive consolidative change in the left perihilar region, left lung base, and also large mixed density loculated and nonloculated pleural fluid with associated pleural thickening. I have discussed the case with Dr. Campos cardiothoracic surgery, Dr. Melissa, cardiology and Dr. Curry hematology oncology. Patient will be admitted to ICU and I will discontinue Arixtra and start on Argatroban IV. I evaluated the patient in the ICU. She appears to be in moderate distress hypotensive currently on 5 mcg/min of Levophed. She had received total 3 L normal saline boluses. I will place her on Argatroban as above. A stat 2D echo prelim did not reveal any evidence of RV dysfunction. Hypotension is secondary to his severe sepsis and septic shock not related to PE. No indication for TPA. Pancultured continue broad-spectrum antibiotic with Zosyn, Zyvox and azithromycin. Because of the loculation and pleural thickening involving the effusion, once clinically more stable patient may need decortication procedure Subjective: 10/18: hgb dropped acutely to 6.6 from 9.9 overnight. patient with worsening dyspnea. taken emergently down to CT for repeat chest/abd/pelvis. CT chest with enlarging hemothorax. discussed case with Dr. Campos, at his request, placed 36Fr chest tube with 1L bloody output. dyspnea improving. discussed extensively with Dr. Campos: plan to wait and watch chest tube output for 48h and repeat CT chest. discussed with Dr. Melissa: needs dual antiplatelet therapy to prevent in-stent thrombosis. risky to hold argatroban, but will be forced to at least for the next 48h given life-threatening bleeding. discussed with Dr. Curry. Discussed extensively with all family members and explained current situation. patient endorses SOB. 10/19: multiple clots in chest tube. CXR again with whiteout of the left lung field. discussed with Dr. Campos- he will take to OR for left VATS washout and hematoma evacuation. discussed extensively with patient and family. hgb 11.6-> 9.4. off vasopressors. 10/20: taken to OR yesterday for washout and evacuation of hematoma. today, CXR significantly improved. patient remained intubated, but weaned and extubated today after she passed SBT. 10/21: 1gm drop in hgb today. chest tubes now much more dry. no air leak. to suction. patient states she has significant pain. placed on morphine TOWN CLERK for improved patient control of analgesia. discussed with multidisciplinary team: joint decision to start argatroban today, give 48h on drip and if no bleeding, will discontinue chest tubes at that point. 10/22: hgb stable. chest tube output minimal. no air leak. argatroban drip continues. patient states she does not want to eat "solid food" and would prefer liquids only today. I have ordered full liquid diet for patient comfort at her request. 10/23: hgb stable. chest tubes with minimal output. CXR stable with significant LLL atelectatic collapse. needs to increase mobilization with PT. one of the two remaining chest tubes removed today. Objective Vital Signs / I&O: Vital Signs 10/22/18 16:00 10/22/18 20:00 10/22/18 20:06 Temperature 36.7 C 36.8 C Pulse Rate 94 H 96 H 100 H Respiratory Rate 20 25 H 28 H Blood Pressure 121/79 122/79 Pulse Oximetry 97 97 94 L 10/23/18 00:00 10/23/18 00:21 10/23/18 04:00 Temperature 36.8 C 36.6 C Pulse Rate 96 H 97 H 93 H Respiratory Rate 26 H 24 26 H Blood Pressure 129/80 129/82 Pulse Oximetry 97 96 10/23/18 04:31 10/23/18 08:00 10/23/18 09:00 Temperature 37.2 C Pulse Rate 91 H 90 94 H Respiratory Rate 16 24 Blood Pressure 145/95 H Pulse Oximetry 97 10/23/18 12:00 Temperature 36.8 C Pulse Rate 86 Respiratory Rate 24 Blood Pressure 112/78 Pulse Oximetry 99 Intake & Output 10/22/18 10/23/18 10/23/18 18:59 06:59 18:59 Intake Total 500 / 500 750 / 750 Output Total 70 / 70 1280 / 1280 Balance 430 / 430 -530 / -530 Weight 82.5 kg Intake: IV 250 / 250 Novastan Inj 250 MG In NS Inj 250 / 250 247.5 ML @ 0.5 MCG/KG/MIN 2.32 mls/hr IV.CONT TITRATE PRN Rx#: [id number] Oral 500 / 500 500 / 500 Output: Pleural Fluid 70 / 70 Urine Amount (Catheter) 1200 / 1200 Straight 1200 / 1200 Chest Tube Drainage 80 / 80 #1Y and #2Y Left Mid-Axillary 80 / 80 Chest Y Connected Other: # Bowel Movements 0 0 Result Diagrams: 10/23/18 03:34 10/23/18 03:34 Objective Remarks: GENERAL: Elderly female, lying in bed, no distress this morning. HEENT: Normocephalic. Atraumatic. Pupils equal, round, reactive, conjugate. Mucous membranes are moist NECK: Trachea is midline. There is no JVD. CHEST: 1 left-sided chest tube, to suction, minimal amount of serosanguinous output. equal chest rise. on nc o2. CARDIOVASCULAR: Normal rate, regular rhythm. sinus. ABDOMEN: Soft, nontender, nondistended. No guarding. MUSCULOSKELETAL: Pulses 2+. No peripheral edema. NEUROLOGICAL: RASS -1. Awake and follows commands. Moves all extremities. No focal deficits. Assessment and Plan - Problem List (1) Septic shock Code(s): A41.9 - Sepsis, unspecified organism; R65.21 - Severe sepsis with septic shock Status: Acute (2) HCAP (healthcare-associated pneumonia) Code(s): J18.9 - Pneumonia, unspecified organism Status: Acute (3) Acute pulmonary embolism Code(s): I26.99 - Other pulmonary embolism without acute cor pulmonale Status : Acute (4) Pleural effusion Code(s): J90 - Pleural effusion, not elsewhere classified Status: Acute (5) CAD (coronary artery disease), [place] coronary artery Code(s): I25.10 - Atherosclerotic heart disease of [place] coronary artery without angina pectoris Status: Chronic (6) Diabetes mellitus Code(s): E11.9 - Type 2 diabetes mellitus without complications Status: Chronic (7) S/P coronary artery bypass graft x 4 Code(s): Z95.1 - Presence of aortocoronary bypass graft Status: Chronic (8) Heparin induced thrombocytopenia (HIT) Code(s): D75.82 - Heparin induced thrombocytopenia (HIT) Status: Chronic - Assessment and Plan Plan: Assessment: 58yF with CAD s/p CABG complicated by AKILAH and multiple arterial and venous thrombosis as well as bleeding complications including RV apex thrombus, RLL PE, multiple coronary graft thromboses, and now spontaneous left- sided hemothorax causing hemorrhagic shock and requiring transfusions. now POD 4 s/p left VATS washout. Doing well. keep chest tube one additional day with argatroban on board. keep in ICU- very high risk of decompensation. Plan: Neuro/psych: History of depression -Continue home medication sertraline 50 mg daily Resp: Right lower lobe pulmonary embolism Left-sided healthcare associated pneumonia Left spontaneous hemothorax s/p left washout, VATS 10/19 -restarted argatroban 10/21 -Currently on nasal cannula to keep oxygen saturation above 90%. - weaned to extubate 10/20 (intubated for OR 10/19) -Bronchodilators with albuterol/ipratropium aerosols every 6 hours PRN -Hob elevated. -s/p left 36Fr chest tube 10/18: 1L sanguinous output: d/c 10/21 - s/p 36 Fr chest tubes x 2 in OR 10/19, one removed 10/23. - CT to suction. - Dr. Campos following - gently anticoagulate with chest tubes still in place to watch output. if therapeutic on anticoagulation without further bleeding: - d/c last chest tube 10/24 - keep in ICU one additional day, transition out of ICU 10/25 if continues to be stable. - would wait until 10/25 to start oral anticoagulation. CV: Hemorrhagic shock- resolved Lactic acidosis- resolved s/p off-pump CABG x 4 09/29 Immediate post-op STEMI Post-op Graft thrombosis - off vasopressors - SL IV. - trend hgb - transfuse to keep hgb > 7 -At home on Arixtra 7.5 mg subcu daily. Changed to Argatroban gtt but now on hold due to hemorrhagic shock. -Continue statins. No beta-maryjo secondary to hypotension -Previously on 09/29/2018, patient had a CABG x4 followed by hyper acute graft occlusion. She was taken emergently to the computer laboratory technician by Dr. Melissa where she - had completely occluded grafts. Patient underwent MAXWELL to OM1, LAD. balloon angioplasty to OM2. -Echo preliminary does not show any evidence of RV dysfunction. No indication for TPA Renal: Acute kidney insufficiency- improving. -Monitor renal function, I/O's, electrolytes replacement per protocol. -Holding Lasix due to hypotension -Previous renal ultrasound indicated medical renal disease. FEN/GI: - slowly advance diet., IV Protonix -Previous transaminitis has resolved Heme/ID: Acute pulmonary embolism while on Arixtra Acute graft thrombosis Normocytic anemia RV apex thrombus Heparin Induced Thrombocytopenia Hemorrhagic shock -Discussed with distribution sales manager Dr. Curry - see above anticoag plan. - continue DAPT -Previously HIT positive ID: -d/c'd abx. cultures negative at 72h. watch for new fevers. -Sputum blood and urine culture: NGTD Endo: Type 2 diabetes -SSI with accuchecks -Hold long-acting insulin Prophylaxis: -argatroban drip -Pantoprazole Lines: -piv Keep in ICU. (6) Diabetes mellitus Qualifiers: Diabetes mellitus complication status: with circulatory complication
[2018-10-24 05:16] LABS: Hematocrit 25.9 % (35.0-46.0); Hemoglobin 9.1 gm/dL (11.6-15.3); Mean Corpuscular HGB Conc 35.1 % (32.0-36.0); Mean Corpuscular Hemoglobin 30.2 pg (27.0-34.0); Mean Corpuscular Volume 86.1 fL (80.0-100.0); Mean Platelet Volume 6.9 fL (7.0-11.0); Platelet Count 306 th/mm3 (150-450); Red Blood Count 3.01 mil/mm3 (4.00-5.30); Red Cell Distribution Width 14.1 % (11.6-17.2); White Blood Count 7.5 th/mm3 (4.0-11.0)
[2018-10-24 05:28] LABS: Anion Gap 9 meq/L (5-15); Blood Urea Nitrogen 6 mg/dL (7-18); Calcium 7.7 mg/dL (8.5-10.1); Carbon Dioxide 26.2 meq/L (21.0-32.0); Chloride 105 meq/L (98-107); Glomerular Filtration Rate Greater Than 89 mL/min (>89); Glucose,Random 124 mg/dL (74-106); Magnesium 1.9 mg/dL (1.5-2.5); Phosphorus 2.9 mg/dL (2.5-4.9); Potassium 3.8 meq/L (3.5-5.1); Sodium 140 meq/L (136-145)
[2018-10-24] MEDS: Insulin NovoLIN Regular Correctional Sugar Inj SQ SCH ×3 (05:51→18:22)
[2018-10-24] MEDS: Ranolazine 500 MG 12HR ER Tablet PO SCH ×2 (05:52→18:26)
--- NOTE | 2018-10-24 06:09 | XR ---
EXAM DATE: 10/24/2018 5:36 AM EST AGE/SEX: 58 years / Female INDICATIONS: Shortness of breath, possible pulmonary disease. CLINICAL DATA: This is the patient's subsequent encounter. Patient reports that signs and symptoms h ave been present for 1 week and indicates a pain score of 0/10. MEDICAL/SURGICAL HISTORY: Cardiovascular disease. Diabetes. CABG. Hysterectomy. [place] [facility] [place]23/[place]. . FINDINGS: A single AP view of the chest demonstrates no interval change. Scattered parenchymal consolidation in volving the left lung most pronounced within the left base. Consolidation within the medial right isabella g base. No discernible effusions. No pneumothorax. Mild cardiomegaly. Median sternotomy wires. CONCLUSION: Unchanged bilateral infiltrates. Electronically signed by: Randy Wayne MD 10/24/2018 6:07 AM EST
--- NOTE | 2018-10-24 07:50 | P.PNONC ---
Subjective Interval history: Patient seen and examined this morning, vital signs, labs and medications reviewed. Events of the past 72 hours reviewed as well. The patient remained on an Argatroban infusion over the weekend, she remains on antiplatelet therapy with Plavix. Aspirin was discontinued on 10/21/2018. She has had no complications related to bleeding, 1 of her chest tubes was removed over the weekend. She continues to have one in place. Subjectively; patient reports swelling in her thighs and calves. She tells me she is eating soft solids and has been getting up out of bed to chair. She tells me she is breathing comfortably but is coughing up phlegm, it does hurt when she coughs. She denies noting overt bleeding. Objective Vital Signs/Intake & Output: Vital Signs 10/23/18 08:00 10/23/18 09:00 10/23/18 11:58 Temperature 98.9 F Pulse Rate 90 94 H 87 Respiratory Rate 24 24 Blood Pressure 145/95 H Pulse Oximetry 97 10/23/18 12:00 10/23/18 15:23 10/23/18 16:00 Temperature 98.3 F 98.4 F Pulse Rate 86 91 H 93 H Respiratory Rate 24 25 H 26 H Blood Pressure 112/78 126/82 Pulse Oximetry 99 97 10/23/18 19:59 10/23/18 20:00 10/24/18 00:00 Temperature 98 F 98.6 F Pulse Rate 98 H 97 H 99 H Respiratory Rate 20 21 22 Blood Pressure 139/92 H 152/103 H Pulse Oximetry 96 98 97 10/24/18 00:12 10/24/18 04:00 10/24/18 04:05 Temperature 98 F Pulse Rate 94 H 99 H 98 H Respiratory Rate 16 28 H 16 Blood Pressure 152/94 H Pulse Oximetry 97 Intake & Output 10/23/18 10/24/18 10/24/18 18:59 06:59 18:59 Intake Total 450 / 450 100 / 100 Output Total 880 / 880 1150 / 1150 Balance -430 / -430 -1050 / -1050 Weight 83 kg Intake: Oral 450 / 450 100 / 100 Output: Urine 850 / 850 1100 / 1100 Pleural Fluid 30 / 30 Chest Tube Drainage 50 / 50 left posterior chest tube 50 / 50 Other: # Voids 3 2 # Bowel Movements 0 0 Result Diagrams: 10/24/18 03:37 10/24/18 03:37 Laboratory Results: Laboratory Results - last 24 hr 10/23/18 10/23/18 10/23/18 03:34 10:40 11:50 WBC RBC Hgb Hct MCV MCH MCHC RDW Plt Count MPV APTT 56.6 H Sodium Potassium Chloride Carbon Dioxide Anion Gap BUN Creatinine Estimated GFR POC Glucose 272 H Random Glucose Calcium Phosphorus Magnesium Total Bilirubin 0.9 Direct Bilirubin 0.4 H Indirect Bilirubin 0.5 AST 28 ALT 33 Alkaline Phosphatase 362 H Total Protein 6.3 L Albumin 2.3 L 10/23/18 10/23/18 10/24/18 17:32 23:31 03:37 WBC 7.5 RBC 3.01 L Hgb 9.1 L Hct 25.9 L MCV 86.1 MCH 30.2 MCHC 35.1 RDW 14.1 Plt Count 306 MPV 6.9 L APTT Sodium Potassium Chloride Carbon Dioxide Anion Gap BUN Creatinine Estimated GFR POC Glucose 219 H 177 H Random Glucose Calcium Phosphorus Magnesium Total Bilirubin Direct Bilirubin Indirect Bilirubin AST ALT Alkaline Phosphatase Total Protein Albumin 10/24/18 10/24/18 03:37 05:39 WBC RBC Hgb Hct MCV MCH MCHC RDW Plt Count MPV APTT Sodium 140 Potassium 3.8 Chloride 105 Carbon Dioxide 26.2 Anion Gap 9 BUN 6 L Creatinine 0.53 Estimated GFR Greater than 89 POC Glucose 156 H Random Glucose 124 H Calcium 7.7 L Phosphorus 2.9 Magnesium 1.9 Total Bilirubin Direct Bilirubin Indirect Bilirubin AST ALT Alkaline Phosphatase Total Protein Albumin Culture Results: Microbiology 10/17/18 09:45 Aerobic Blood Culture - Final Blood - Peripheral No growth in 5 days Anaerobic Blood Culture - Final No growth in 5 days 10/17/18 09:35 Aerobic Blood Culture - Final Blood - Peripheral No growth in 5 days Anaerobic Blood Culture - Final No growth in 5 days Imaging Studies: Impressions Chest X-Ray 10/24/18 05:00 CONCLUSION: Unchanged bilateral infiltrates. Medications: Active Medications Generic Name Dose Route Start Last Admin Trade Name Freq PRN Reason Stop Dose Admin Albuterol 1 ampul 10/17/18 12:00 10/24/18 04:05 Duoneb Neb (Estelle) NEB 1 ampul Q4HR NEB ESTELLE Administration Calcium Carbonate 500 mg 10/22/18 15:48 10/23/18 14:26 Tums Chew CHEW 500 mg Q6H PRN Administration INDIGESTION Clopidogrel Bisulfate 75 mg 10/18/18 09:00 10/23/18 08:04 Plavix PO 75 mg DAILY ESTELLE Administration Argatroban 250 mg/ Sodium 250 mls @ 2.32 mls/hr 10/21/18 10:00 10/23/18 02:33 Chloride IV.CONT 1.25 mcg/kg/min TITRATE PRN 5.81 mls/hr Per Protocol Administration Protocol 0.5 MCG/KG/MIN Morphine Sulfate 30 mg in 30 mls @ 0 mls/hr 10/21/18 11:35 10/24/18 06:38 Morphine Inj PREMI[employer] CANCELLATION CLERK 0 mls/hr UNSCH PRN Infusion prn pain 0 MG/HR Insulin Human Regular 0 units 10/17/18 18:00 10/24/18 05:51 Novolin R Correctional Sugar Inj SQ 5 units Q6HR ESTELLE Administration Protocol Ondansetron HCl 4 mg 10/19/18 19:50 10/20/18 21:06 Zofran Inj IV.PUSH 4 mg Q6H PRN Administration NAUSEA OR VOMITING Pantoprazole Sodium 40 mg 10/18/18 09:00 10/23/18 08:03 Protonix Inj IV.PUSH 40 mg DAILY ESTELLE Administration Ranolazine 500 mg 10/17/18 18:00 10/24/18 05:52 Ranexa PO 500 mg Q12H ESTELLE Administration Senna/Docusate Sodium 1 tab 10/17/18 21:00 10/23/18 20:25 Jacqui-Colace PO 1 tab BID ESTELLE Administration Sertraline HCl 50 mg 10/18/18 09:00 10/23/18 08:04 Zoloft PO 50 mg DAILY ESTELLE Administration Sodium Chloride 2 ml 10/17/18 21:00 10/23/18 20:25 Ns Flush IV.FLUSH 2 ml BID ESTELLE Administration Temazepam 7.5 mg 10/17/18 21:00 10/23/18 20:25 Restoril PO 7.5 mg HS ESTELLE Administration Objective Remarks: General: Middle-aged female, awake and alert, responsive and speaks to me in full sentences, she does appear weak and frail. HEENT: Head atraumatic normal cephalic, conjunctivae pale, sclerae anicteric, oral exam dry mucous membranes. Neck exam no cervical lymphadenopathy, she has a left-sided IJ triple lumen catheter. Respiratory: Good air movement over the right hemithorax, decreased breath sounds over the left hemithorax, breath sounds are improved when compared to exam performed on 10/19/2018. 2 [address] are in place, these are draining serosanguineous fluid. Chest: 3 left-sided large caliber chest tubes in the left hemithorax. Cardiovascular: Regular rate and rhythm, S1-S2 no obvious murmurs rubs gallops. Well-healing sternotomy incision noted. Abdominal: Protuberant abdomen, soft, no obvious tenderness, positive bowel sounds no palpable organ enlargement. Lower extremities no pretibial edema no calf tenderness. CO FOUNDER: No focal sensorimotor deficits. Skin: Nonfocal examination. Muscular skeletal: Adequate muscle mass, tone and strength. Assessment/Plan - Plan Ms. Lira is a 58-year-old female with multiple medical comorbid conditions including long-standing history of diabetes, chronic kidney disease, coronary artery disease, recent CABG with hyperacute thromboses of the grafts. The hyper acute thrombosis was attributed to an underlying heparin-induced thrombocytopenia with thrombosis (AKILAH). The patient had been on therapeutic anticoagulation with Arixtra in combination with dual antiplatelet therapy with Plavix and aspirin. The patient returned to the emergency room after 1 week with increased chest pain and associated shortness of breath. CTA showed she has small volume right sided pulmonary embolism associated with complicated/ loculated left-sided pleural effusion concerning for hemothorax. Hematology service has been asked to see this patient to reconcile the competing issues i.e. ongoing hemo-thorax with drop in hemoglobin hematocrit in the setting of heparin-induced thrombocytopenia with a pulmonary embolism. Recommendations: 1. Left-sided hemothorax: Underwent video-assisted thoracoscopic surgery (VATS ) on 10/19/2018. Blood and clots amounting to approximately 900 cc were evacuated. There was no suggestion of active/ongoing bleeding intraoperatively. Patient presently with 1 chest tube. Only a scant amount of drainage noted in collection device. Clinically doing very well. 2. Recent history of heparin-induced thrombocytopenia with thrombosis (AKILAH), hyperacute thromboses of coronary artery grafts, she also has a thrombus within the right ventricle: Patient will continue with argatroban for anticoagulation, she will remain on clopidogrel as an antiplatelet agent. She is not having any bleeding. Her hemoglobin is stable. Liver enzymes stable as well. 3. Continue Argatroban for now, will transition to Pradaxa over the next 24-48 hours.
[2018-10-24] MEDS: Senna/Docusate Sodium 8.6/50 MG Tablet PO SCH ×2 (10:05→21:30)
[2018-10-24] MEDS: Pantoprazole Inj 40 MG Vial IV.PUSH SCH (10:05)
[2018-10-24] MEDS: Sertraline 50 MG Tablet PO SCH (10:06)
--- NOTE | 2018-10-24 11:44 | P.PNCC ---
Subjective Subjective Remarks/Hospital Course: Hospital Course: Patient is a 58-year-old female with history of coronary artery disease, type 2 diabetes, who underwent off-pump CABG x 4 09/29/[address] Campos. Intraoperatively she had significant ST elevations, emergently taken to [facility] by by Dr. Melissa, found to have completely occluded grafts. Patient underwent MAXWELL to OM1, LAD. balloon angiopasty to OM2. Patient had a complicated course and was diagnosed with heparin-induced thrombocytopenia. A follow-up echo on 10/03/2018 showed EF 50-55%. Patient was eventually discharged on 10/10/2018 with a prescription for Arixtra however next day she had to be admitted for 1 day for as pharmacy did not have Arixtra. Arixtra was arranged and patient was discharged again on 10/11/2018. Today she presented to the emergency department for chest pain and shortness of breath. For systolic blood pressure in the 80s patient received IV fluid bolus by EMS. Chest x-ray showed extensive left-sided infiltrate/effusion. Presuming pneumonia and septic shock, patient received cefepime and azithromycin in the ED. Lactic acid was 2.1. Critical care was contacted for admission as after 2 L fluid boluses patient remained hypotensive I discussed with Dr. Kearns, recommended additional 1 more liter fluid bolus, and start Levophed if patient remains hypotensive. I also recommended stat CT Chest PE protocol. This showed pulmonary embolism in right lower lobe segmental and subsegmental branches. Also there was extensive consolidative change in the left perihilar region, left lung base, and also large mixed density loculated and nonloculated pleural fluid with associated pleural thickening. I have discussed the case with Dr. Campos cardiothoracic surgery, Dr. Melissa, cardiology and Dr. Curry hematology oncology. Patient will be admitted to ICU and I will discontinue Arixtra and start on Argatroban IV. I evaluated the patient in the ICU. She appears to be in moderate distress hypotensive currently on 5 mcg/min of Levophed. She had received total 3 L normal saline boluses. I will place her on Argatroban as above. A stat 2D echo prelim did not reveal any evidence of RV dysfunction. Hypotension is secondary to his severe sepsis and septic shock not related to PE. No indication for TPA. Pancultured continue broad-spectrum antibiotic with Zosyn, Zyvox and azithromycin. Because of the loculation and pleural thickening involving the effusion, once clinically more stable patient may need decortication procedure Subjective: 10/18: hgb dropped acutely to 6.6 from 9.9 overnight. patient with worsening dyspnea. taken emergently down to CT for repeat chest/abd/pelvis. CT chest with enlarging hemothorax. discussed case with Dr. Campos, at his request, placed 36Fr chest tube with 1L bloody output. dyspnea improving. discussed extensively with Dr. Campos: plan to wait and watch chest tube output for 48h and repeat CT chest. discussed with Dr. Melissa: needs dual antiplatelet therapy to prevent in-stent thrombosis. risky to hold argatroban, but will be forced to at least for the next 48h given life-threatening bleeding. discussed with Dr. Curry. Discussed extensively with all family members and explained current situation. patient endorses SOB. 10/19: multiple clots in chest tube. CXR again with whiteout of the left lung field. discussed with Dr. Campos- he will take to OR for left VATS washout and hematoma evacuation. discussed extensively with patient and family. hgb 11.6-> 9.4. off vasopressors. 10/20: taken to OR yesterday for washout and evacuation of hematoma. today, CXR significantly improved. patient remained intubated, but weaned and extubated today after she passed SBT. 10/21: 1gm drop in hgb today. chest tubes now much more dry. no air leak. to suction. patient states she has significant pain. placed on morphine PNEUMATIC TUBE FITTER for improved patient control of analgesia. discussed with multidisciplinary team: joint decision to start argatroban today, give 48h on drip and if no bleeding, will discontinue chest tubes at that point. 10/22: hgb stable. chest tube output minimal. no air leak. argatroban drip continues. patient states she does not want to eat "solid food" and would prefer liquids only today. I have ordered full liquid diet for patient comfort at her request. 10/23: hgb stable. chest tubes with minimal output. CXR stable with significant LLL atelectatic collapse. needs to increase mobilization with PT. one of the two remaining chest tubes removed today. 10/24: hgb stable. final chest tube to be d/c today. CXR with significantly improved aeration. still needs mobilization. complaining of increased LLE swelling and pain. would be at very high risk for DVT formation- will order ultrasound. will keep in ICU at least through today and then consider transfer out of ICU tomorrow if stable. can start oral anticoagulation tomorrow if stable. Objective Vital Signs / I&O: Vital Signs 10/23/18 11:58 10/23/18 12:00 10/23/18 15:23 Temperature 36.8 C Pulse Rate 87 86 91 H Respiratory Rate 24 24 25 H Blood Pressure 112/78 Pulse Oximetry 99 10/23/18 16:00 10/23/18 19:59 10/23/18 20:00 Temperature 36.9 C 36.6 C Pulse Rate 93 H 98 H 97 H Respiratory Rate 26 H 20 21 Blood Pressure 126/82 139/92 H Pulse Oximetry 97 96 98 10/24/18 00:00 10/24/18 00:12 10/24/18 04:00 Temperature 37.0 C 36.6 C Pulse Rate 99 H 94 H 99 H Respiratory Rate 22 16 28 H Blood Pressure 152/103 H 152/94 H Pulse Oximetry 97 97 10/24/18 04:05 10/24/18 08:04 Temperature Pulse Rate 98 H 95 H Respiratory Rate 16 18 Blood Pressure Pulse Oximetry 95 Intake & Output 10/23/18 10/24/18 10/24/18 18:59 06:59 18:59 Intake Total 450 / 450 100 / 100 Output Total 880 / 880 1150 / 1150 Balance -430 / -430 -1050 / -1050 Weight 83 kg Intake: Oral 450 / 450 100 / 100 Output: Urine 850 / 850 1100 / 1100 Pleural Fluid 30 / 30 Chest Tube Drainage 50 / 50 left posterior chest tube 50 / 50 Other: # Voids 3 2 # Bowel Movements 0 0 Result Diagrams: 10/24/18 03:37 10/24/18 03:37 Objective Remarks: GENERAL: Elderly female, sitting in a chair, no distress this morning. HEENT: Normocephalic. Atraumatic. Pupils equal, round, reactive, conjugate. Mucous membranes are moist NECK: Trachea is midline. There is no JVD. CHEST: 1 left-sided chest tube, to suction, minimal amount of serosanguinous output. equal chest rise. on nc o2. CARDIOVASCULAR: Normal rate, regular rhythm. sinus. ABDOMEN: Soft, nontender, nondistended. No guarding. MUSCULOSKELETAL: Pulses 2+. No peripheral edema. LLE slightly larger than RLE, but no significant pitting edema. warm and well perfused. slightly positive calf tenderness on left. NEUROLOGICAL: RASS 0. Awake and follows commands. Moves all extremities. No focal deficits. Assessment and Plan - Problem List (1) Septic shock Code(s): A41.9 - Sepsis, unspecified organism; R65.21 - Severe sepsis with septic shock Status: Acute (2) HCAP (healthcare-associated pneumonia) Code(s): J18.9 - Pneumonia, unspecified organism Status: Acute (3) Acute pulmonary embolism Code(s): I26.99 - Other pulmonary embolism without acute cor pulmonale Status : Acute (4) Pleural effusion Code(s): J90 - Pleural effusion, not elsewhere classified Status: Acute (5) CAD (coronary artery disease), [place] coronary artery Code(s): I25.10 - Atherosclerotic heart disease of [place] coronary artery without angina pectoris Status: Chronic (6) Diabetes mellitus Code(s): E11.9 - Type 2 diabetes mellitus without complications Status: Chronic (7) S/P coronary artery bypass graft x 4 Code(s): Z95.1 - Presence of aortocoronary bypass graft Status: Chronic (8) Heparin induced thrombocytopenia (HIT) Code(s): D75.82 - Heparin induced thrombocytopenia (HIT) Status: Chronic - Assessment and Plan Plan: Assessment: 58yF with CAD s/p CABG complicated by AKILAH and multiple arterial and venous thrombosis as well as bleeding complications including RV apex thrombus, RLL PE, multiple coronary graft thromboses, and now spontaneous left- sided hemothorax causing hemorrhagic shock and requiring transfusions. now POD 5 s/p left VATS washout. Doing well. d/c final chest tube today. keep in ICU one more day. if stable, start oral anticoagulation tomorrow. Plan: Neuro/psych: History of depression -Continue home medication sertraline 50 mg daily Resp: Right lower lobe pulmonary embolism Left-sided healthcare associated pneumonia Left spontaneous hemothorax s/p left washout, VATS 10/19 -restarted argatroban 10/21 -Currently on nasal cannula to keep oxygen saturation above 90%. - weaned to extubate 10/20 (intubated for OR 10/19) -Bronchodilators with albuterol/ipratropium aerosols every 6 hours PRN -Hob elevated. -s/p left 36Fr chest tube 10/18: 1L sanguinous output: d/c 10/21 - s/p 36 Fr chest tubes x 2 in OR 10/19, one removed 10/23. remove final chest tube today (per CT surgery) - Dr. Campos following if therapeutic on anticoagulation without further bleeding: - d/c last chest tube 10/24 - keep in ICU one additional day, transition out of ICU 10/25 if continues to be stable. - would wait until 10/25 to start oral anticoagulation. CV: Hemorrhagic shock- resolved Lactic acidosis- resolved s/p off-pump CABG x 4 09/29 Immediate post-op STEMI Post-op Graft thrombosis - off vasopressors - SL IV. - trend hgb - transfuse to keep hgb > 7 -At home on Arixtra 7.5 mg subcu daily. Changed to Argatroban gtt but now on hold due to hemorrhagic shock. -Continue statins. No beta-maryjo secondary to hypotension -Previously on 09/29/2018, patient had a CABG x4 followed by hyper acute graft occlusion. She was taken emergently to the [facility] laboratory assistant by Dr. Melissa where she - had completely occluded grafts. Patient underwent MAXWELL to OM1, LAD. balloon angioplasty to OM2. -Echo preliminary does not show any evidence of RV dysfunction. No indication for TPA Renal: Acute kidney insufficiency- improving. -Monitor renal function, I/O's, electrolytes replacement per protocol. -Holding Lasix due to hypotension -Previous renal ultrasound indicated medical renal disease. FEN/GI: - slowly advance diet., IV Protonix -Previous transaminitis has resolved Heme/ID: Acute pulmonary embolism while on Arixtra Acute graft thrombosis Normocytic anemia RV apex thrombus Heparin Induced Thrombocytopenia Hemorrhagic shock -Discussed with commission clerk Dr. Curry - see above anticoag plan. - continue DAPT -Previously HIT positive - LE dopplers to rule out DVT- would be at high risk given prothrombotic state, but already on anticoagulation, so would not change immediate management. ID: -d/c'd abx. cultures negative at 72h. watch for new fevers. -Sputum blood and urine culture: NGTD Endo: Type 2 diabetes -SSI with accuchecks -Hold long-acting insulin Prophylaxis: -argatroban drip -Pantoprazole Lines: -piv Keep in ICU. (6) Diabetes mellitus Qualifiers: Diabetes mellitus complication status: with circulatory complication
--- NOTE | 2018-10-24 14:32 | P.PNCV ---
- Note Subjective/Hospital Course: t 58-year-old female known to our service This patient presented to [facility] in early September with complaints of chest pain, she was found to have multivessel disease on cardiac catheterization. She was advised CABG, she underwent a four-vessel CABG on 09/29/2018. The same day she developed ST elevation MD with hyper acute thromboses of multiple grafts. That same night the patient required coronary artery stenting with multiple stents placed within the occluded coronary artery grafts. 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 She was initiated subsequently on Arixtra for management of hit. The patient also was on dual antiplatelet therapy with aspirin and Plavix. She was discharged home 1 week ago, she reports doing well at home up until the morning of 10/17/2018, she woke up at 4:30 AM with chest pain and difficulty breathing. She took 2 nitroglycerin about 10 minutes apart to help relieve the chest pain but this did not help. She subsequently called 911 close to 7 AM and was brought in to [facility] emergency department. CT angiogram of the thorax which revealed new right-sided pulmonary emboli ( small volume) and a new left-sided complicated pleural effusion. She was also noted to be hypotensive, she was initiated on IV fluid resuscitation and then required pressor support. She has been evaluated by cardiology, she was initiated on anticoagulation argatroban gtt , repeat ct chest should worsening left-sided pleural effusion which appears to be complicated. Over the course of the past 24 hours her hemoglobin has dropped down from 9.9 g/dL at presentation down to 6.6 g/dL she has received total of 4 units PRBC 10/18 pt require large bore left chest tube placed by [facility] , # 36 filipino 700 mL dark sanguinous output. concern is for persistent clots plan is to repeat CT chest on 10/19 for left VATS evacuation of hemothorax today / multiple clots in chest tube 1. Left video-Assisted Thoracoscopic Surgery (VATS). 2. Evacuation of Hemothorax 3. Intercostal Nerve Block 10/20 pt extubated now has 3 chest tubes, no air leak / bloody drainage awake and follows commands 10/21 less drainage from chest tubes -plan gently anticoagulate with chest tubes still in place to watch output. if therapeutic on anticoagulation without further bleeding x 48h, would discontinue chest tubes at that time (earliest Tuesday 10/23) 10/23 Clinically and hemodynamically stable Minimal drainage from chest tubes Will DC 1 of 2 tubes Plan to remove the second tube tomorrow if output remains stable 10/24 last chest tube removed Vaseline gauze dressing to chest, pt tolerated well agree with transfer out of ICU f/u CXR in am Objective: Vital Signs - 24 hr 10/23/18 15:23 10/23/18 16:00 10/23/18 19:59 Temperature 98.4 F Pulse Rate 91 H 93 H 98 H Respiratory Rate 25 H 26 H 20 Blood Pressure 126/82 Pulse Oximetry 97 96 10/23/18 20:00 10/24/18 00:00 10/24/18 00:12 Temperature 98 F 98.6 F Pulse Rate 97 H 99 H 94 H Respiratory Rate 21 22 16 Blood Pressure 139/92 H 152/103 H Pulse Oximetry 98 97 10/24/18 04:00 10/24/18 04:05 10/24/18 08:00 Temperature 98 F 98.8 F Pulse Rate 99 H 98 H 95 H Respiratory Rate 28 H 16 19 Blood Pressure 152/94 H 122/79 Pulse Oximetry 97 95 10/24/18 08:04 10/24/18 09:00 10/24/18 12:03 Temperature Pulse Rate 95 H 95 H 69 Respiratory Rate 18 17 Blood Pressure Pulse Oximetry 95 GENERAL: A&O x 3 SKIN: Warm and dry. sternal incision intact and well approximated HEAD: Normocephalic. EYES: No scleral icterus. No injection or drainage. NECK: Supple, trachea midline. No JVD or lymphadenopathy. CARDIOVASCULAR: Regular rate and rhythm without murmurs, gallops, or rubs. RESPIRATORY: Breath sounds equal bilaterally. No accessory muscle use. diminished left lung field GASTROINTESTINAL: Abdomen soft, non-tender, nondistended. MUSCULOSKELETAL: No cyanosis, or edema. BACK: Nontender without obvious deformity. No CVA tenderness. Labs: Laboratory Results - last 12 hr 10/24/18 10/24/18 10/24/18 03:37 03:37 05:39 WBC 7.5 RBC 3.01 L Hgb 9.1 L Hct 25.9 L MCV 86.1 MCH 30.2 MCHC 35.1 RDW 14.1 Plt Count 306 MPV 6.9 L Sodium 140 Potassium 3.8 Chloride 105 Carbon Dioxide 26.2 Anion Gap 9 BUN 6 L Creatinine 0.53 Estimated GFR Greater than 89 POC Glucose 156 H Random Glucose 124 H Calcium 7.7 L Phosphorus 2.9 Magnesium 1.9 10/24/18 13:24 WBC RBC Hgb Hct MCV MCH MCHC RDW Plt Count MPV Sodium Potassium Chloride Carbon Dioxide Anion Gap BUN Creatinine Estimated GFR POC Glucose 324 H Random Glucose Calcium Phosphorus Magnesium Result Diagrams: 10/24/18 03:37 10/24/18 03:37 Telemetry: NSR - Plan (2) Diabetes mellitus (6) Heparin induced thrombocytopenia (HIT) Plan: on argatroban (9) Acute pulmonary embolism Plan: pt on argatroban (10) Hemothorax Plan: all chest tubes removed, vaseline gauze dressing in place (2) Diabetes mellitus Qualifiers: Diabetes mellitus complication status: with circulatory complication
--- NOTE | 2018-10-24 15:43 | P.PNCA ---
Subjective Interval history: No events overnight Up to the chair Chest tubes all out Medications and Allergies Active Medications: Active Medications Hydrocodone Bitart/Acetaminophen (Sharon 5/325) 1 tab PO Q6H PRN PRN Reason: PAIN 1-10 Al Hydroxide/Mg Hydroxide (Milk Of Magnesia Liq) 30 ml PO Q12H PRN PRN Reason: Mild Constipation Albuterol (Albuterol Neb (Prn)) 2.5 mg NEB Q2HR NEB PRN PRN Reason: SHORTNESS OF BREATH/WHEEZING Albuterol (Duoneb Neb (Estelle)) 1 ampul NEB Q4HR NEB ESTELLE Last Admin: 10/24/18 12:03 Dose: 1 ampul Bisacodyl (Dulcolax Supp) 10 mg RECTAL DAILY PRN PRN Reason: SEVERE CONSITIPATION Calcium Carbonate (Tums Chew) 500 mg CHEW Q6H PRN PRN Reason: INDIGESTION Last Admin: 10/23/18 14:26 Dose: 500 mg Clopidogrel Bisulfate (Plavix) 75 mg PO DAILY [facility] Last Admin: 10/24/18 10:05 Dose: 75 mg Dextrose (D50w Vial) 50 ml IV.PUSH UNSCH PRN PRN Reason: PER HYPOGLYCEMIA PROTOCOL Furosemide (Lasix) 40 mg PO DAILY PRN PRN Reason: SEE LABEL COMMENTS Glucagon (Glucagon Inj) 1 mg OTHER PRN PRN PRN Reason: for Hypoglycemia Protocol Argatroban 250 mg/ Sodium (Chloride) 250 mls @ 2.32 mls/hr IV.CONT TITRATE PRN ; Protocol PRN Reason: Per Protocol Last Admin: 10/23/18 02:33 Dose: 1.25 mcg/kg/min, 5.81 mls/hr Morphine Sulfate (Morphine Inj) 30 mg in 30 mls @ 0 mls/hr GERIATRICIAN UNSCH PRN PRN Reason: prn pain Last Infusion: 10/24/18 06:38 Dose: 0 mls/hr Insulin Human Regular (Novolin R Correctional Sugar Inj) 0 units SQ Q6HR ESTELLE; Protocol Last Admin: 10/24/18 14:30 Dose: 10 units Lactulose (Lactulose Liq) 30 ml PO DAILY PRN PRN Reason: SEVERE CONSITIPATION Naloxone HCl (Narcan Inj) 0.4 mg IV.PUSH PRN PRN PRN Reason: Resp rate < 10 Ondansetron HCl (Zofran Inj) 4 mg IV.PUSH Q6H PRN PRN Reason: NAUSEA OR VOMITING Last Admin: 10/20/18 21:06 Dose: 4 mg Pantoprazole Sodium (Protonix Inj) 40 mg IV.PUSH DAILY [facility] Last Admin: 10/24/18 10:05 Dose: 40 mg Ranolazine (Ranexa) 500 mg PO Q12H [facility] Last Admin: 10/24/18 05:52 Dose: 500 mg Senna/Docusate Sodium (Jacqui-Colace) 1 tab PO BID [facility] Last Admin: 10/24/18 10:05 Dose: 1 tab Sennosides (Senokot) 17.2 mg PO Q12H PRN PRN Reason: Moderate Constipation Sertraline HCl (Zoloft) 50 mg PO DAILY [facility] Last Admin: 10/24/18 10:06 Dose: 50 mg Sodium Chloride (Ns Flush) 2 ml IV.FLUSH BID [facility] Last Admin: 10/24/18 10:04 Dose: 2 ml Sodium Chloride (Ns Flush) 2 ml IV.FLUSH PRN PRN PRN Reason: FLUSH AFTER USING IV ACCESS Temazepam (Restoril) 7.5 mg PO HS [facility] Last Admin: 10/23/18 20:25 Dose: 7.5 mg Allergies Allergy/AdvReac Type Severity Reaction Status Date / Time heparin Allergy Severe HEPARIN-INDUCED Verified 10/17/18 09:15 THROMBOCYTOPENIA metoprolol Allergy Severe HALLUCINATI Verified 10/17/18 09:15 ONS famotidine Allergy Unknown RASH Verified 10/17/18 09:15 lisinopril Allergy Unknown Itching Verified 10/17/18 09:15 insulin detemir AdvReac Unknown Diarrhea Verified 10/17/18 09:15 Home Medications Medication Instructions Recorded Confirmed Type aspirin [Aspir-81] 81 mg PO DAILY 08/03/18 10/17/18 History atorvastatin 20 mg PO DAILY 08/03/18 10/17/18 History insulin glargine [Lantus U-100 38 unit SUB-Q DAILY 08/03/18 10/17/18 History Insulin] insulin lispro [Humalog U-100 30 unit SUB-Q TIDAC 08/03/18 10/17/18 History Insulin] methocarbamol 500 mg PO QID 08/03/18 10/17/18 History nitroglycerin 0.3 mg SUBLINGUAL Q5-15M PRN 08/03/18 10/17/18 History sertraline 50 mg PO DAILY 08/03/18 10/17/18 History temazepam 7.5 mg PO HS 08/03/18 10/17/18 History docusate sodium [DOK] 100 mg PO BID PRN 10/17/18 10/17/18 History Physical Exam Vital signs: Vital Signs 10/23/18 16:00 10/23/18 19:59 10/23/18 20:00 Temperature 98.4 F 98 F Pulse Rate 93 H 98 H 97 H Respiratory Rate 26 H 20 21 Blood Pressure 126/82 139/92 H Pulse Oximetry 97 96 98 10/24/18 00:00 10/24/18 00:12 10/24/18 04:00 Temperature 98.6 F 98 F Pulse Rate 99 H 94 H 99 H Respiratory Rate 22 16 28 H Blood Pressure 152/103 H 152/94 H Pulse Oximetry 97 97 10/24/18 04:05 10/24/18 08:00 10/24/18 08:04 Temperature 98.8 F Pulse Rate 98 H 95 H 95 H Respiratory Rate 16 19 18 Blood Pressure 122/79 Pulse Oximetry 95 95 10/24/18 09:00 10/24/18 12:03 Temperature Pulse Rate 95 H 69 Respiratory Rate 17 Blood Pressure Pulse Oximetry Intake & Output 10/23/18 10/24/18 10/24/18 18:59 06:59 18:59 Intake Total 450 / 450 100 / 100 Output Total 880 / 880 1150 / 1150 Balance -430 / -430 -1050 / -1050 Weight 83 kg Intake: Oral 450 / 450 100 / 100 Output: Urine 850 / 850 1100 / 1100 Pleural Fluid 30 / 30 Chest Tube Drainage 50 / 50 left posterior chest tube 50 / 50 Other: # Voids 3 2 # Bowel Movements 0 0 Narrative: General: Middle-aged female, laying in bed, appears to be acutely ill. HEENT: Head atraumatic normal cephalic, conjunctivae pale, sclerae anicteric, oral exam dry mucous membranes. Neck exam no cervical lymphadenopathy, she has a left-sided IJ triple lumen catheter. Respiratory: Breath sounds appear more clearly bilaterally Cardiovascular: Regular rate and rhythm, S1-S2 no obvious murmurs rubs gallops. Well-healing sternotomy incision noted. Abdominal: Protuberant abdomen, soft, no obvious tenderness, positive bowel sounds no palpable organ enlargement. Lower extremities no pretibial edema no calf tenderness. 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 Muscular skeletal: Adequate muscle mass, tone and strength. - Urinary Catheter Management Straight Cath placed during this visit: yes Reason for continuing: Not indwelling catheter Insertion date: 10/18/18 Insertion time: 09:30 Indwelling Urethral Catheter Cath placed during this visit: yes, but has since been removed by the nurse Reason for continuing: Not indwelling catheter Insertion date: 10/18/18 Insertion time: 09:30 Removal date: 10/21/18 Removal time: 18:00 Results 10/24/18 03:37 10/24/18 03:37 Cardiac Enzymes 10/23/18 Range/Units 03:34 AST 28 (15-37) U/L Coagulation 10/23/18 Range/Units 10:40 APTT 56.6 H (23.4-31.7) sec CBC 10/23/18 10/24/18 Range/Units 03:34 03:37 WBC 6.6 7.5 (4.0-11.0) th/mm3 RBC 3.06 L 3.01 L (4.00-5.30) mil/mm3 Hgb 9.1 L 9.1 L (11.6-15.3) gm/dL Hct 26.9 L 25.9 L (35.0-46.0) % Plt Count 291 306 (150-450) th/mm3 Comprehensive Metabolic Panel 10/23/18 10/23/18 10/24/18 Range/Units 03:34 03:34 03:37 Sodium 137 140 (136-145) meq/L Potassium 3.9 3.8 (3.5-5.1) meq/L Chloride 106 105 (98-107) meq/L Carbon Dioxide 25.2 26.2 (21.0-32.0) meq/L BUN 7 6 L (7-18) mg/dL Creatinine 0.60 0.53 (0.50-1.00) mg/dL Calcium 7.5 L 7.7 L (8.5-10.1) mg/dL Direct Bilirubin 0.4 H (0.0-0.2) mg/dL Indirect Bilirubin 0.5 (0.0-0.8) mg/dL AST 28 (15-37) U/L ALT 33 (10-53) U/L Alkaline Phosphatase 362 H (45-117) U/L Total Protein 6.3 L (6.4-8.2) g/dL Albumin 2.3 L (3.4-5.0) g/dL Intake and Output 10/24/18 10/24/18 10/24/18 06:59 14:59 22:59 Intake Total 100 / 100 Output Total 1150 / 1150 Balance -1050 / -1050 Intake: Oral 100 / 100 Output: Urine 1100 / 1100 Chest Tube Drainage 50 / 50 left posterior chest tube 50 / 50 Other: # Voids 2 # Bowel Movements 0 Weight 83 kg - Imaging and Cardiology Imaging: Impressions Chest X-Ray 10/23/18 05:00 CONCLUSION: 2 left chest tubes remain present and no pneumothorax is visualized. Airspace consolidation and pleural-based opacity on the left are stable. Chest X-Ray 10/24/18 05:00 CONCLUSION: Unchanged bilateral infiltrates. Assessment and Plan - Assessment (1) Hemothorax Code(s): J94.2 - Hemothorax Status: Acute (2) Elevated troponin Code(s): R74.8 - Abnormal levels of other serum enzymes Status: Acute (3) CAD (coronary artery disease), [place] coronary artery Code(s): I25.10 - Atherosclerotic heart disease of [place] coronary artery without angina pectoris Status: Chronic (4) S/P coronary artery bypass graft x 4 Code(s): Z95.1 - Presence of aortocoronary bypass graft Status: Chronic (5) Heparin induced thrombocytopenia (HIT) Code(s): D75.82 - Heparin induced thrombocytopenia (HIT) Status: Chronic (6) Pneumonia Code(s): J18.9 - Pneumonia, unspecified organism Status: Acute (7) Acute pulmonary embolism Code(s): I26.99 - Other pulmonary embolism without acute cor pulmonale Status : Acute - Plan 1) Hx of CAD, previous CABGx4 with acute graft closure due to HIT, s/p complex PCI Unfortunately with recent complex PCI would not stop Plavix due to high risk of stent thrombosis 2) Hemothorax Chest tube placed by critical care VATS POD#5 Chest tubes out 3) Doubt PNA 4) Acute pulmonary embolism Argatroban restarted 5) Minimal elevated troponins secondary to pulmonary embolism as well as recent events No acute coronary syndrome noted 6) Complex case Ultimately need to be on combination of anticoagulation/antiplatelet Started on Argatroban, continue Plavix and stop ASA Plan for transfer to [facility] over next few days
[2018-10-24] MEDS: Argatroban Inj 250 MG in Sodium Chlor 0.9% Inj 247.5 ML IV.CONT PRN (21:37)
--- NOTE | 2018-10-24 22:48 | US ---
EXAM DATE: 10/24/2018 10:37 PM EST AGE/SEX: 58 years / Female INDICATIONS: Bilateral leg edema. CLINICAL DATA: This is the patient's initial encounter. Patient reports that signs and symptoms have been present for 1 day and indicates a pain score of 4/10. MEDICAL/SURGICAL HISTORY: Myocardial infarction. Diabetes. Deep venous thrombosis. Stage II CKD. Chest pain. Coronary artery disease. Heparin induced thrombocytopenia. MRSA. Hysterectomy. Open heart surgery. Right rotator cuff repair. [place] [facility] [place]. . TECHNIQUE: Venous ultrasound of both lower extremities was performed from the inguinal ligament to t he proximal calf. Real-time, color Doppler and spectral tracing, compression and augmentation techni ques were used. FINDINGS: Right Leg: Normal compression of the deep venous system from the inguinal region to the proximal onesimo f. No echogenic clot is seen. Normal response of the venous system to augmentation and respiration. Left Leg: Deep venous tributaries of the left lower extremity are patent. There is clot in the great er saphenous vein. Lower extremity edema is demonstrated. Other: None. CONCLUSION: No deep venous thrombosis on either side but there is greater saphenous vein thrombus an d subcutaneous edema on the left. Electronically signed by: Dave Max MD 10/24/2018 10:46 PM EST
[2018-10-25] MEDS: Insulin NovoLIN Regular Correctional Sugar Inj SQ SCH ×4 (00:17→18:00)
--- NOTE | 2018-10-25 04:14 | XR ---
EXAM DATE: 10/25/2018 4:11 AM EST AGE/SEX: 58 years / Female INDICATIONS: Short of breath. CLINICAL DATA: This is the patient's subsequent encounter. Patient reports that signs and symptoms h ave been present for 4 - 6 days and indicates a pain score of 0/10. MEDICAL/SURGICAL HISTORY: Non-responsive. Non-responsive. [place] [facility] [place]. . FINDINGS: A single AP view of the chest demonstrates interval removal of the left thoracostomy tube without pne umothorax. Scattered areas of consolidation throughout the majority of the left lung and medial right lung base are stable. Heart is mildly enlarged. Median sternotomy wires. CONCLUSION: Interval removal of thoracostomy tube without pneumothorax. Persistent areas of consolidation bilater ally. Electronically signed by: Randy Wayne MD 10/25/2018 4:13 AM EST
[2018-10-25 06:06] LABS: Hematocrit 26.9 % (35.0-46.0); Hemoglobin 9.1 gm/dL (11.6-15.3); Mean Corpuscular HGB Conc 33.8 % (32.0-36.0); Mean Corpuscular Hemoglobin 29.9 pg (27.0-34.0); Mean Corpuscular Volume 88.4 fL (80.0-100.0); Mean Platelet Volume 6.9 fL (7.0-11.0); Platelet Count 315 th/mm3 (150-450); Red Blood Count 3.05 mil/mm3 (4.00-5.30); Red Cell Distribution Width 14.8 % (11.6-17.2); White Blood Count 7.6 th/mm3 (4.0-11.0)
[2018-10-25] MEDS: Ranolazine 500 MG 12HR ER Tablet PO SCH ×2 (06:08→18:44)
[2018-10-25 06:34] LABS: Anion Gap 6 meq/L (5-15); Blood Urea Nitrogen 5 mg/dL (7-18); Carbon Dioxide 27.3 meq/L (21.0-32.0); Chloride 103 meq/L (98-107); Glomerular Filtration Rate Greater Than 89 mL/min (>89); Glucose,Random 102 mg/dL (74-106); Magnesium 1.9 mg/dL (1.5-2.5); Potassium 3.9 meq/L (3.5-5.1); Sodium 136 meq/L (136-145)
[2018-10-25 06:35] LABS: Phosphorus 2.8 mg/dL (2.5-4.9)
--- NOTE | 2018-10-25 07:30 | P.PNONC ---
Subjective Interval history: This patient was seen and examined this morning, vital signs, labs, medications , events over the past 24 hours, imaging studies including ultrasound Doppler studies of the lower extremities and informatics consultant notes were reviewed. Overnight, she remained on an Argatroban infusion. She is without evidence of clinically significant bleeding, all of her chest tubes have now been removed. Over the past 24 hours she has spent time in a bedside chair, she tells me she is eating reasonably well, she continues to have pain when she takes in a deep breath, the pain is along her left chest where her chest tubes were. Objective Vital Signs/Intake & Output: Vital Signs 10/24/18 08:00 10/24/18 08:04 10/24/18 09:00 Temperature 98.8 F Pulse Rate 95 H 95 H 95 H Respiratory Rate 19 18 Blood Pressure 122/79 Pulse Oximetry 95 95 10/24/18 12:00 10/24/18 12:03 10/24/18 15:40 Temperature 98.5 F Pulse Rate 98 H 69 100 H Respiratory Rate 19 17 20 Blood Pressure Pulse Oximetry 95 10/24/18 16:00 10/24/18 20:00 10/24/18 21:35 Temperature 98.1 F 98.6 F Pulse Rate 101 H 100 H Respiratory Rate 26 H 25 H Blood Pressure 115/76 134/82 Pulse Oximetry 95 97 97 10/25/18 00:00 10/25/18 04:00 Temperature 98.7 F 98.2 F Pulse Rate 101 H 96 H Respiratory Rate 27 H 23 Blood Pressure 130/90 123/82 Pulse Oximetry 95 97 Intake & Output 10/24/18 10/25/18 10/25/18 18:59 06:59 18:59 Intake Total 1940 / 1940 450 / 450 Output Total 1360 / 1360 700 / 700 Balance 580 / 580 -250 / -250 Weight 82.5 kg Intake: IV 250 / 250 Novastan Inj 250 MG In NS Inj 250 / 250 247.5 ML @ 0.5 MCG/KG/MIN 2.32 mls/hr IV.CONT TITRATE PRN Rx#: [id number] Oral 750 / 750 Oral Supplement 200 / 200 Anesthesia Amount 600 / 600 Other 590 / 590 Output: Urine 1200 / 1200 700 / 700 Pleural Fluid 30 / 30 Chest Tube Drainage 130 / 130 #1Y and #2Y Left Mid-Axillary 80 / 80 Chest Y Connected left posterior chest tube 50 / 50 Other: # Voids 3 2 # Incontinent Voids 0 Date of Last Bowel Movement 10/25/18 # Bowel Movements 0 1 Result Diagrams: 10/25/18 04:45 10/25/18 04:45 Laboratory Results: Laboratory Results - last 24 hr 10/24/18 10/24/18 10/25/18 13:24 18:09 00:08 WBC RBC Hgb Hct MCV MCH MCHC RDW Plt Count MPV Sodium Potassium Chloride Carbon Dioxide Anion Gap BUN Creatinine Estimated GFR POC Glucose 324 H 262 H 176 H Random Glucose Calcium Phosphorus Magnesium 10/25/18 10/25/18 10/25/18 04:45 04:45 05:59 WBC 7.6 RBC 3.05 L Hgb 9.1 L Hct 26.9 L MCV 88.4 MCH 29.9 MCHC 33.8 RDW 14.8 Plt Count 315 MPV 6.9 L Sodium 136 Potassium 3.9 Chloride 103 Carbon Dioxide 27.3 Anion Gap 6 BUN 5 L Creatinine 0.56 Estimated GFR Greater than 89 POC Glucose 116 H Random Glucose 102 Calcium 8.0 L Phosphorus 2.8 Magnesium 1.9 Culture Results: Microbiology 10/17/18 09:45 Aerobic Blood Culture - Final Blood - Peripheral No growth in 5 days Anaerobic Blood Culture - Final No growth in 5 days 10/17/18 09:35 Aerobic Blood Culture - Final Blood - Peripheral No growth in 5 days Anaerobic Blood Culture - Final No growth in 5 days Imaging Studies: Impressions Venous Doppler Study 10/24/18 11:40 CONCLUSION: No deep venous thrombosis on either side but there is greater saphenous vein thrombus and subcutaneous edema on the left. Chest X-Ray 10/25/18 06:00 CONCLUSION: Interval removal of thoracostomy tube without pneumothorax. Persistent areas of consolidation bilaterally. Medications: Active Medications Generic Name Dose Route Start Last Admin Trade Name Freq PRN Reason Stop Dose Admin Calcium Carbonate 500 mg 10/22/18 15:48 10/25/18 03:30 Tums Chew CHEW 500 mg Q6H PRN Administration INDIGESTION Clopidogrel Bisulfate 75 mg 10/18/18 09:00 10/24/18 10:05 Plavix PO 75 mg DAILY GOLDY Administration Morphine Sulfate 30 mg in 30 mls @ 0 mls/hr 10/21/18 11:35 10/24/18 06:38 Morphine Inj OPERATIONS SYSTEMS SPECIALIST 0 mls/hr UNSCH PRN Infusion prn pain 0 MG/HR Insulin Human Regular 0 units 10/17/18 18:00 10/25/18 06:08 Novolin R Correctional Sugar Inj SQ Not Given Q6HR [facility] Protocol Ondansetron HCl 4 mg 10/19/18 19:50 10/20/18 21:06 Zofran Inj IV.PUSH 4 mg Q6H PRN Administration NAUSEA OR VOMITING Pantoprazole Sodium 40 mg 10/18/18 09:00 10/24/18 10:05 Protonix Inj IV.PUSH 40 mg DAILY GOLDY Administration Ranolazine 500 mg 10/17/18 18:00 10/25/18 06:08 Ranexa PO 500 mg Q12H GOLDY Administration Senna/Docusate Sodium 1 tab 10/17/18 21:00 10/24/18 21:30 Jacqui-Colace PO 1 tab BID GOLDY Administration Sennosides 17.2 mg 10/17/18 10:42 10/24/18 18:24 Senokot PO 17.2 mg Q12H PRN Administration Moderate Constipation Sertraline HCl 50 mg 10/18/18 09:00 10/24/18 10:06 Zoloft PO 50 mg DAILY GOLDY Administration Sodium Chloride 2 ml 10/17/18 21:00 10/24/18 21:30 Ns Flush IV.FLUSH 2 ml BID GOLDY Administration Temazepam 7.5 mg 10/17/18 21:00 10/24/18 21:30 Restoril PO 7.5 mg HS GOLDY Administration Objective Remarks: General: Middle-aged female, awake and alert, responsive and speaks to me in full sentences, she does appear weak and frail. HEENT: Head atraumatic normal cephalic, conjunctivae pale, sclerae anicteric, oral exam dry mucous membranes. Neck exam no cervical lymphadenopathy, she has a left-sided IJ triple lumen catheter. Respiratory: Good air movement over the right hemithorax, decreased breath sounds over the left hemithorax, breath sounds are improved when compared to exam performed on 10/19/2018. 2 chest tubes are in place, these are draining serosanguineous fluid. Chest: All chest tubes have been removed Cardiovascular: Regular rate and rhythm, S1-S2 no obvious murmurs rubs gallops. Well-healing sternotomy incision noted. Abdominal: Protuberant abdomen, soft, no obvious tenderness, positive bowel sounds no palpable organ enlargement. Lower extremities no pretibial edema no calf tenderness. 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 Skin: Nonfocal examination. Muscular skeletal: Adequate muscle mass, tone and strength. Assessment/Plan - Plan Ms. Lira is a 58-year-old female with multiple medical comorbid conditions including long-standing history of diabetes, chronic kidney disease, coronary artery disease, recent CABG with hyperacute thromboses of the grafts. The hyper acute thrombosis was attributed to an underlying heparin-induced thrombocytopenia with thrombosis (AKILAH). The patient had been on therapeutic anticoagulation with Arixtra in combination with dual antiplatelet therapy with Plavix and aspirin. The patient returned to the emergency room after 1 week with increased chest pain and associated shortness of breath. CTA showed she has small volume right sided pulmonary embolism associated with complicated/ loculated left-sided pleural effusion concerning for hemothorax. Hematology service has been asked to see this patient to reconcile the competing issues i.e. ongoing hemo-thorax with drop in hemoglobin hematocrit in the setting of heparin-induced thrombocytopenia with a pulmonary embolism. Recommendations: 1. Left-sided hemothorax: Underwent video-assisted thoracoscopic surgery (VATS ) on 10/19/2018. Blood and clots amounting to approximately 900 cc were evacuated. There was no suggestion of active/ongoing bleeding intraoperatively. Since undergoing VATS procedure all of her chest tubes have been drained. No evidence of recurrent/reaccumulation of hemothorax. Her hemoglobin and hematocrit also remained stable. 2. Recent history of heparin-induced thrombocytopenia with thrombosis (AKILAH), hyperacute thromboses of coronary artery grafts, she also has a thrombus within the right ventricle: Patient will continue with argatroban for anticoagulation, she will remain on clopidogrel as an antiplatelet agent. The patient has been on therapeutic anticoagulation with Argatroban since 10/21/2018. As of this morning I have discontinued Argatroban and have transitioned her to Pradaxa which is an oral direct thrombin inhibitor at the standard therapeutic dose of 150 mg twice daily. I would like to monitor her on this treatment prior to her being discharged home. It is encouraging to note her clinical stability and hemodynamic stability over the past 3 days.
[2018-10-25] MEDS: Morphine Inj 30 MG/30 ML PCA.VIAL PCA PRN (08:00)
[2018-10-25] MEDS: Sertraline 50 MG Tablet PO SCH (09:32)
[2018-10-25] MEDS: Senna/Docusate Sodium 8.6/50 MG Tablet PO SCH ×2 (09:33→21:56)
[2018-10-25] MEDS: Pantoprazole Inj 40 MG Vial IV.PUSH SCH (09:33)
--- NOTE | 2018-10-25 12:57 | P.PN ---
Subjective Interval history: Follow-up for CAD status post CABG x4, acute graft closure due to H IT, complex PCI, pulmonary embolism. It is currently resting in bed. She wants to the use the bedside commode NOT bedpan. She denies any chest pain, shortness of breath, fever, chills. Physical Exam Vital signs: Vital Signs 10/24/18 15:40 10/24/18 16:00 10/24/18 20:00 Temperature 98.1 F 98.6 F Pulse Rate 100 H 101 H 100 H Respiratory Rate 20 26 H 25 H Blood Pressure 115/76 134/82 Pulse Oximetry 95 97 10/24/18 21:35 10/25/18 00:00 10/25/18 04:00 Temperature 98.7 F 98.2 F Pulse Rate 101 H 96 H Respiratory Rate 27 H 23 Blood Pressure 130/90 123/82 Pulse Oximetry 97 95 97 10/25/18 07:00 10/25/18 08:00 10/25/18 09:00 Temperature 98.3 F Pulse Rate 97 H 94 H 97 H Respiratory Rate 25 H 21 Blood Pressure 124/89 126/80 Pulse Oximetry 96 96 10/25/18 09:09 10/25/18 09:30 10/25/18 10:00 Temperature Pulse Rate 104 H 96 H 97 H Respiratory Rate 25 H 21 25 H Blood Pressure 121/77 124/82 Pulse Oximetry 97 96 96 Intake & Output 10/24/18 10/25/18 10/25/18 18:59 06:59 18:59 Intake Total 1940 / 1940 450 / 450 Output Total 1360 / 1360 700 / 700 Balance 580 / 580 -250 / -250 Weight 82.5 kg Intake: IV 250 / 250 Novastan Inj 250 MG In NS Inj 250 / 250 247.5 ML @ 0.5 MCG/KG/MIN 2.32 mls/hr IV.CONT TITRATE PRN Rx#: [id number] Oral 750 / 750 Oral Supplement 200 / 200 Anesthesia Amount 600 / 600 Other 590 / 590 Output: Urine 1200 / 1200 700 / 700 Pleural Fluid 30 / 30 Chest Tube Drainage 130 / 130 #1Y and #2Y Left Mid-Axillary 80 / 80 Chest Y Connected left posterior chest tube 50 / 50 Other: # Voids 3 2 # Incontinent Voids 0 Date of Last Bowel Movement 10/25/18 10/25/18 # Bowel Movements 0 1 Narrative: GENERAL: Alert, Oriented x 3, NAD. SKIN: Warm and dry. HEAD: Normocephalic. EYES: No scleral icterus. No injection or drainage. NECK: Supple, trachea midline. No JVD or lymphadenopathy. CARDIOVASCULAR: Regular rate and rhythm without murmurs, gallops, or rubs. Sternotomy incision healing well. RESPIRATORY: Breath sounds equal bilaterally. No accessory muscle use. GASTROINTESTINAL: Abdomen soft, non-tender, nondistended. MUSCULOSKELETAL: No cyanosis, or edema. BACK: Nontender without obvious deformity. No CVA tenderness. - Urinary Catheter Management Straight Cath placed during this visit: yes Reason for continuing: Not indwelling catheter Insertion date: 10/18/18 Insertion time: 09:30 Indwelling Urethral Catheter Cath placed during this visit: yes, but has since been removed by the nurse Reason for continuing: Not indwelling catheter Insertion date: 10/18/18 Insertion time: 09:30 Removal date: 10/21/18 Removal time: 18:00 Results - Labs CBC & Chem 7: 10/25/18 04:45 10/25/18 04:45 Laboratory Results - last 24 hr 10/24/18 10/24/18 10/25/18 13:24 18:09 00:08 WBC RBC Hgb Hct MCV MCH MCHC RDW Plt Count MPV Sodium Potassium Chloride Carbon Dioxide Anion Gap BUN Creatinine Estimated GFR POC Glucose 324 H 262 H 176 H Random Glucose Calcium Phosphorus Magnesium 10/25/18 10/25/18 10/25/18 04:45 04:45 05:59 WBC 7.6 RBC 3.05 L Hgb 9.1 L Hct 26.9 L MCV 88.4 MCH 29.9 MCHC 33.8 RDW 14.8 Plt Count 315 MPV 6.9 L Sodium 136 Potassium 3.9 Chloride 103 Carbon Dioxide 27.3 Anion Gap 6 BUN 5 L Creatinine 0.56 Estimated GFR Greater than 89 POC Glucose 116 H Random Glucose 102 Calcium 8.0 L Phosphorus 2.8 Magnesium 1.9 10/25/18 12:45 WBC RBC Hgb Hct MCV MCH MCHC RDW Plt Count MPV Sodium Potassium Chloride Carbon Dioxide Anion Gap BUN Creatinine Estimated GFR POC Glucose 174 H Random Glucose Calcium Phosphorus Magnesium - Imaging Impressions Venous Doppler Study 10/24/18 11:40 CONCLUSION: No deep venous thrombosis on either side but there is greater saphenous vein thrombus and subcutaneous edema on the left. Chest X-Ray 10/25/18 06:00 CONCLUSION: Interval removal of thoracostomy tube without pneumothorax. Persistent areas of consolidation bilaterally. - Procedures VATS with evacuation of hemothorax on 10/19/2018. Echocardiogram 10/17/2018 The left ventricular systolic function is low normal with an estimated ejection fraction in the range of 50- 55%. Doppler parameters are consistent with impaired left ventricular relaxtion ( grade 1 diastolic dysfunction). The right ventricular systoilc function is moderately decreased. Unable to determine if there is still possible thrombus at the RV apex ( compared to previous echo). There is trace tricuspid valve regurgitation. Small apical locuated pericardial effusion, no signs of tamponade. Left pleural effusion. Assessment and Plan - Plan Ms. Lira is a 58-year-old female with a history of coronary artery disease , type 2 diabetes mellitus who underwent off-pump CABG x4 on 09/29/2018 and cardiac catheterization on the same day due to perioperative STEMI presented to the emergency department on 10/17/2018 due to chest pain and shortness of breath. Chest x-ray showed extensive left-sided infiltrate/effusion. Patient was diagnosed with pulmonary embolism. Patient underwent CABG x 4 on 09/29/2018. Intraoperatively, she had significant ST elevation indicating inferior ST elevation NV and subsequently she underwent emergent cardiac cath. Patient underwent MAXWELL to OM1, LAD. balloon angiopasty to OM2. Patient had a complicated course and was diagnosed with heparin-induced thrombocytopenia. She was discharged on 10/10/2018 on Arixtra. During this hospitalization patient underwent VATS procedure with evacuation of hemothorax. Her chest tube was discontinued on 10/24/2018. Hematology, cardiothoracic surgery as well as cardiology closely followed this patient. Critical care medicine transfer the care of the patient to hospitalist service on 10/25/2018. Right lower lobe pulmonary embolism Left spontaneous hemothorax status post VATS procedure on 10/19/2018. Chest tube discontinued on 10/24/2018. Continue breathing treatments, supplemental oxygen Multivessel coronary artery disease Recent acute STEMI perioperatively. Status post CABG x4 on 09/29/2018 Status post emergent PCI stent placement Continue Pradaxa 150 mg p.o. twice daily, Plavix 75 mg p.o. daily. -Ticagrelor instead of Plavix could be a consideration. However, patient is also on Pradaxa. Continue Ranexa 500 mg p.o. twice daily Continue Lasix 40 mg p.o. daily as needed Heparin Induced thrombocytopenia and thrombosis (AKILAH) -Hyperacute thromboses of coronary artery grafts as well as RV thrombus. -Patient was on Argatroban and switched to Pradaxa by heme/onc. Patient can be transferred to step down. Full code. Pradaxa.
--- NOTE | 2018-10-25 15:33 | P.PNCA ---
Subjective Interval history: No events overnight Up to the chair Eating better, feeling better Medications and Allergies Active Medications: Active Medications Hydrocodone Bitart/Acetaminophen ([place] 5/325) 1 tab PO Q6H PRN PRN Reason: PAIN 1-10 Last Admin: 10/25/18 15:03 Dose: 1 tab Al Hydroxide/Mg Hydroxide (Milk Of Magnesia Liq) 30 ml PO Q12H PRN PRN Reason: Mild Constipation Albuterol (Albuterol Neb (Prn)) 2.5 mg NEB Q2HR NEB PRN PRN Reason: SHORTNESS OF BREATH/WHEEZING Bisacodyl (Dulcolax Supp) 10 mg RECTAL DAILY PRN PRN Reason: SEVERE CONSITIPATION Calcium Carbonate (Tums Chew) 500 mg CHEW Q6H PRN PRN Reason: INDIGESTION Last Admin: 10/25/18 03:30 Dose: 500 mg Clopidogrel Bisulfate (Plavix) 75 mg PO DAILY [facility] Last Admin: 10/25/18 09:32 Dose: 75 mg Dabigatran (Pradaxa) 150 mg PO BID [facility] Last Admin: 10/25/18 09:32 Dose: 150 mg Dextrose (D50w Vial) 50 ml IV.PUSH UNSCH PRN PRN Reason: PER HYPOGLYCEMIA PROTOCOL Furosemide (Lasix) 40 mg PO DAILY PRN PRN Reason: SEE LABEL COMMENTS Glucagon (Glucagon Inj) 1 mg OTHER PRN PRN PRN Reason: for Hypoglycemia Protocol Morphine Sulfate (Morphine Inj) 30 mg in 30 mls @ 0 mls/hr COMMODITY LEAD UNSCH PRN PRN Reason: prn pain Last Admin: 10/25/18 08:00 Dose: 0 mls/hr Insulin Human Regular (Novolin R Correctional Sugar Inj) 0 units SQ Q6HR [facility]; Protocol Last Admin: 10/25/18 12:00 Dose: Not Given Lactulose (Lactulose Liq) 30 ml PO DAILY PRN PRN Reason: SEVERE CONSITIPATION Naloxone HCl (Narcan Inj) 0.4 mg IV.PUSH PRN PRN PRN Reason: Resp rate < 10 Ondansetron HCl (Zofran Inj) 4 mg IV.PUSH Q6H PRN PRN Reason: NAUSEA OR VOMITING Last Admin: 10/20/18 21:06 Dose: 4 mg Pantoprazole Sodium (Protonix Inj) 40 mg IV.PUSH DAILY [facility] Last Admin: 10/25/18 09:33 Dose: 40 mg Ranolazine (Ranexa) 500 mg PO Q12H [facility] Last Admin: 10/25/18 06:08 Dose: 500 mg Senna/Docusate Sodium (Jacqui-Colace) 1 tab PO BID [facility] Last Admin: 10/25/18 09:33 Dose: 1 tab Sennosides (Senokot) 17.2 mg PO Q12H PRN PRN Reason: Moderate Constipation Last Admin: 10/24/18 18:24 Dose: 17.2 mg Sertraline HCl (Zoloft) 50 mg PO DAILY [facility] Last Admin: 10/25/18 09:32 Dose: 50 mg Sodium Chloride (Ns Flush) 2 ml IV.FLUSH BID [facility] Last Admin: 10/25/18 09:33 Dose: 2 ml Sodium Chloride (Ns Flush) 2 ml IV.FLUSH PRN PRN PRN Reason: FLUSH AFTER USING IV ACCESS Temazepam (Restoril) 7.5 mg PO HS [facility] Last Admin: 10/24/18 21:30 Dose: 7.5 mg Allergies Allergy/AdvReac Type Severity Reaction Status Date / Time heparin Allergy Severe HEPARIN-INDUCED Verified 10/17/18 09:15 THROMBOCYTOPENIA metoprolol Allergy Severe HALLUCINATI Verified 10/17/18 09:15 ONS famotidine Allergy Unknown RASH Verified 10/17/18 09:15 lisinopril Allergy Unknown Itching Verified 10/17/18 09:15 insulin detemir AdvReac Unknown Diarrhea Verified 10/17/18 09:15 Home Medications Medication Instructions Recorded Confirmed Type aspirin [Aspir-81] 81 mg PO DAILY 08/03/18 10/17/18 History atorvastatin 20 mg PO DAILY 08/03/18 10/17/18 History insulin glargine [Lantus U-100 38 unit SUB-Q DAILY 08/03/18 10/17/18 History Insulin] insulin lispro [Humalog U-100 30 unit SUB-Q TIDAC 08/03/18 10/17/18 History Insulin] methocarbamol 500 mg PO QID 08/03/18 10/17/18 History nitroglycerin 0.3 mg SUBLINGUAL Q5-15M PRN 08/03/18 10/17/18 History sertraline 50 mg PO DAILY 08/03/18 10/17/18 History temazepam 7.5 mg PO HS 08/03/18 10/17/18 History docusate sodium [DOK] 100 mg PO BID PRN 10/17/18 10/17/18 History Physical Exam Vital signs: Vital Signs 10/24/18 15:40 10/24/18 16:00 10/24/18 20:00 Temperature 98.1 F 98.6 F Pulse Rate 100 H 101 H 100 H Respiratory Rate 20 26 H 25 H Blood Pressure 115/76 134/82 Pulse Oximetry 95 97 10/24/18 21:35 10/25/18 00:00 10/25/18 04:00 Temperature 98.7 F 98.2 F Pulse Rate 101 H 96 H Respiratory Rate 27 H 23 Blood Pressure 130/90 123/82 Pulse Oximetry 97 95 97 10/25/18 07:00 10/25/18 08:00 10/25/18 09:00 Temperature 98.3 F Pulse Rate 97 H 94 H 97 H Respiratory Rate 25 H 21 Blood Pressure 124/89 126/80 Pulse Oximetry 96 96 10/25/18 09:09 10/25/18 09:30 10/25/18 10:00 Temperature Pulse Rate 104 H 96 H 97 H Respiratory Rate 25 H 21 25 H Blood Pressure 121/77 124/82 Pulse Oximetry 97 96 96 10/25/18 11:00 10/25/18 12:00 10/25/18 13:00 Temperature 98.5 F Pulse Rate 93 H 92 H 92 H Respiratory Rate 28 H 23 25 H Blood Pressure 117/86 121/84 120/81 Pulse Oximetry 98 98 96 Intake & Output 10/24/18 10/25/18 10/25/18 18:59 06:59 18:59 Intake Total 1940 / 1940 450 / 450 Output Total 1360 / 1360 700 / 700 Balance 580 / 580 -250 / -250 Weight 82.5 kg Intake: IV 250 / 250 Novastan Inj 250 MG In NS Inj 250 / 250 247.5 ML @ 0.5 MCG/KG/MIN 2.32 mls/hr IV.CONT TITRATE PRN Rx#: [id number] Oral 750 / 750 Oral Supplement 200 / 200 Anesthesia Amount 600 / 600 Other 590 / 590 Output: Urine 1200 / 1200 700 / 700 Pleural Fluid 30 / 30 Chest Tube Drainage 130 / 130 #1Y and #2Y Left Mid-Axillary 80 / 80 Chest Y Connected left posterior chest tube 50 / 50 Other: # Voids 3 2 # Incontinent Voids 0 Date of Last Bowel Movement 10/25/18 10/25/18 # Bowel Movements 0 1 Narrative: General: Middle-aged female, laying in bed, appears to be acutely ill. HEENT: Head atraumatic normal cephalic, conjunctivae pale, sclerae anicteric, oral exam dry mucous membranes. Neck exam no cervical lymphadenopathy, she has a left-sided IJ triple lumen catheter. Respiratory: Breath sounds appear more clearly bilaterally Cardiovascular: Regular rate and rhythm, S1-S2 no obvious murmurs rubs gallops. Well-healing sternotomy incision noted. Abdominal: Protuberant abdomen, soft, no obvious tenderness, positive bowel sounds no palpable organ enlargement. Lower extremities no pretibial edema no calf tenderness. 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 Muscular skeletal: Adequate muscle mass, tone and strength. - Urinary Catheter Management Straight Cath placed during this visit: yes Reason for continuing: Not indwelling catheter Insertion date: 10/18/18 Insertion time: 09:30 Indwelling Urethral Catheter Cath placed during this visit: yes, but has since been removed by the nurse Reason for continuing: Not indwelling catheter Insertion date: 10/18/18 Insertion time: 09:30 Removal date: 10/21/18 Removal time: 18:00 Results 10/25/18 04:45 10/25/18 04:45 CBC 10/24/18 10/25/18 Range/Units 03:37 04:45 WBC 7.5 7.6 (4.0-11.0) th/mm3 RBC 3.01 L 3.05 L (4.00-5.30) mil/mm3 Hgb 9.1 L 9.1 L (11.6-15.3) gm/dL Hct 25.9 L 26.9 L (35.0-46.0) % Plt Count 306 315 (150-450) th/mm3 Comprehensive Metabolic Panel 10/24/18 10/25/18 Range/Units 03:37 04:45 Sodium 140 136 (136-145) meq/L Potassium 3.8 3.9 (3.5-5.1) meq/L Chloride 105 103 (98-107) meq/L Carbon Dioxide 26.2 27.3 (21.0-32.0) meq/L BUN 6 L 5 L (7-18) mg/dL Creatinine 0.53 0.56 (0.50-1.00) mg/dL Calcium 7.7 L 8.0 L (8.5-10.1) mg/dL Intake and Output 10/25/18 10/25/18 10/25/18 06:59 14:59 22:59 Intake Total 200 / 200 Output Total 700 / 700 Balance -500 / -500 Intake: Oral Supplement 200 / 200 Output: Urine 700 / 700 Other: # Voids 2 # Incontinent Voids 0 Date of Last Bowel Movement 10/25/18 10/25/18 # Bowel Movements 1 Weight 82.5 kg - Imaging and Cardiology Imaging: Impressions Chest X-Ray 10/24/18 05:00 CONCLUSION: Unchanged bilateral infiltrates. Venous Doppler Study 10/24/18 11:40 CONCLUSION: No deep venous thrombosis on either side but there is greater saphenous vein thrombus and subcutaneous edema on the left. Chest X-Ray 10/25/18 06:00 CONCLUSION: Interval removal of thoracostomy tube without pneumothorax. Persistent areas of consolidation bilaterally. Assessment and Plan - Assessment (1) Hemothorax Code(s): J94.2 - Hemothorax Status: Acute (2) Elevated troponin Code(s): R74.8 - Abnormal levels of other serum enzymes Status: Acute (3) CAD (coronary artery disease), pala coronary artery Code(s): I25.10 - Atherosclerotic heart disease of pala coronary artery without angina pectoris Status: Chronic (4) S/P coronary artery bypass graft x 4 Code(s): Z95.1 - Presence of aortocoronary bypass graft Status: Chronic (5) Heparin induced thrombocytopenia (HIT) Code(s): D75.82 - Heparin induced thrombocytopenia (HIT) Status: Chronic (6) Pneumonia Code(s): J18.9 - Pneumonia, unspecified organism Status: Acute (7) Acute pulmonary embolism Code(s): I26.99 - Other pulmonary embolism without acute cor pulmonale Status : Acute - Plan 1) Hx of CAD, previous CABGx4 with acute graft closure due to HIT, s/p complex PCI Unfortunately with recent complex PCI would not stop Plavix due to high risk of stent thrombosis 2) Hemothorax Chest tube placed by critical care VATS POD#5 Chest tubes out 3) Doubt PNA 4) Acute pulmonary embolism Argatroban restarted 5) Minimal elevated troponins secondary to pulmonary embolism as well as recent events No acute coronary syndrome noted 6) Complex case Ultimately need to be on combination of anticoagulation/antiplatelet Transferred to Pradaxa and Plavix
[2018-10-26] MEDS: Insulin NovoLIN Regular Correctional Sugar Inj SQ SCH ×5 (00:34→18:43)
[2018-10-26 04:36] LABS: Hemoglobin 9.6 gm/dL (11.6-15.3); Mean Corpuscular HGB Conc 34.2 % (32.0-36.0); Mean Corpuscular Hemoglobin 29.8 pg (27.0-34.0); Mean Corpuscular Volume 87.3 fL (80.0-100.0); Mean Platelet Volume 6.6 fL (7.0-11.0); Platelet Count 308 th/mm3 (150-450); Red Blood Count 3.21 mil/mm3 (4.00-5.30); Red Cell Distribution Width 14.9 % (11.6-17.2); White Blood Count 6.7 th/mm3 (4.0-11.0)
[2018-10-26 05:04] LABS: Anion Gap 6 meq/L (5-15); Blood Urea Nitrogen 5 mg/dL (7-18); Calcium 7.9 mg/dL (8.5-10.1); Carbon Dioxide 29.2 meq/L (21.0-32.0); Chloride 102 meq/L (98-107); Glomerular Filtration Rate Greater Than 89 mL/min (>89); Glucose,Random 130 mg/dL (74-106); Magnesium 1.8 mg/dL (1.5-2.5); Potassium 4.1 meq/L (3.5-5.1); Sodium 137 meq/L (136-145)
[2018-10-26] MEDS: Ranolazine 500 MG 12HR ER Tablet PO SCH ×2 (06:17→18:23)
--- NOTE | 2018-10-26 07:49 | P.PNONC ---
Subjective Interval history: Patient seen and examined, vital signs, labs, medications events over the past 24 hours were reviewed. Metal Polisher And Buffer Apprentice notes reviewed. Subjectively; patient reports her breathing is improved, she tells me she walked around the critical care unit with the help of physical therapy yesterday. She tells me she is eating better. She tells me her abdomen feels a little bit bloated and distended. She denies having any overt bleeding. She was converted from intravenous Argatroban to oral Pradaxa yesterday. Objective Vital Signs/Intake & Output: Vital Signs 10/25/18 08:00 10/25/18 09:00 10/25/18 09:09 Temperature 98.3 F Pulse Rate 94 H 97 H 104 H Respiratory Rate 21 25 H Blood Pressure 126/80 Pulse Oximetry 96 97 10/25/18 09:30 10/25/18 10:00 10/25/18 11:00 Temperature Pulse Rate 96 H 97 H 93 H Respiratory Rate 21 25 H 28 H Blood Pressure 121/77 124/82 117/86 Pulse Oximetry 96 96 98 10/25/18 12:00 10/25/18 13:00 10/25/18 14:00 Temperature 98.5 F Pulse Rate 92 H 92 H 103 H Respiratory Rate 23 25 H 28 H Blood Pressure 121/84 120/81 Pulse Oximetry 98 96 97 10/25/18 14:01 10/25/18 15:00 10/25/18 16:00 Temperature 98.5 F Pulse Rate 102 H 100 H 100 H Respiratory Rate 29 H 29 H 34 H Blood Pressure 120/80 137/89 132/84 Pulse Oximetry 97 95 95 10/25/18 17:00 10/25/18 18:00 10/25/18 18:30 Temperature Pulse Rate 97 H 102 H 103 H Respiratory Rate 21 23 26 H Blood Pressure 128/87 140/91 H Pulse Oximetry 97 98 96 10/25/18 19:54 10/25/18 20:00 10/26/18 00:00 Temperature 98.3 F 98.3 F Pulse Rate 96 H 102 H Respiratory Rate 24 25 H Blood Pressure 128/83 133/88 Pulse Oximetry 97 96 96 10/26/18 04:00 Temperature 98.5 F Pulse Rate 96 H Respiratory Rate 22 Blood Pressure 130/87 Pulse Oximetry 96 Intake & Output 10/25/18 10/26/18 10/26/18 18:59 06:59 18:59 Intake Total 900 / 900 300 / 300 Output Total 1200 / 1200 1550 / 1550 Balance -300 / -300 -1250 / -1250 Weight 82.5 kg Intake: Oral 900 / 900 300 / 300 Output: Urine 1200 / 1200 1550 / 1550 Other: # Voids 4 # Incontinent Voids 0 Date of Last Bowel Movement 10/25/18 10/26/18 # Bowel Movements 1 2 Result Diagrams: 10/26/18 03:50 10/26/18 03:50 Laboratory Results: Laboratory Results - last 24 hr 10/25/18 10/25/18 10/26/18 12:45 17:33 00:17 WBC RBC Hgb Hct MCV MCH MCHC RDW Plt Count MPV Sodium Potassium Chloride Carbon Dioxide Anion Gap BUN Creatinine Estimated GFR POC Glucose 174 H 260 H 232 H Random Glucose Calcium Phosphorus Magnesium 10/26/18 10/26/18 10/26/18 03:50 03:50 06:12 WBC 6.7 RBC 3.21 L Hgb 9.6 L Hct 28.0 L MCV 87.3 MCH 29.8 MCHC 34.2 RDW 14.9 Plt Count 308 MPV 6.6 L Sodium 137 Potassium 4.1 Chloride 102 Carbon Dioxide 29.2 Anion Gap 6 BUN 5 L Creatinine 0.60 Estimated GFR Greater than 89 POC Glucose 92 Random Glucose 130 H Calcium 7.9 L Phosphorus 4.0 D Magnesium 1.8 Medications: Active Medications Generic Name Dose Route Start Last Admin Trade Name Freq PRN Reason Stop Dose Admin Hydrocodone Bitart/Acetaminophen 1 tab 10/23/18 13:34 10/26/18 04:49 [place] 5/325 PO 1 tab Q6H PRN Administration PAIN 1-10 Calcium Carbonate 500 mg 10/22/18 15:48 10/25/18 22:34 Tums Chew CHEW 500 mg Q6H PRN Administration INDIGESTION Clopidogrel Bisulfate 75 mg 10/18/18 09:00 10/25/18 09:32 Plavix PO 75 mg DAILY GOLDY Administration Dabigatran 150 mg 10/25/18 09:00 10/25/18 21:56 Pradaxa PO 150 mg BID GOLDY Administration Morphine Sulfate 30 mg in 30 mls @ 0 mls/hr 10/21/18 11:35 10/25/18 08:00 Morphine Inj [employer]ING SUPERVISOR 0 mls/hr UNSCH PRN Administration prn pain 0 MG/HR Insulin Human Regular 0 units 10/17/18 18:00 10/26/18 06:16 Novolin R Correctional Sugar Inj SQ Not Given Q6HR [facility] Protocol Ondansetron HCl 4 mg 10/19/18 19:50 10/20/18 21:06 Zofran Inj IV.PUSH 4 mg Q6H PRN Administration NAUSEA OR VOMITING Pantoprazole Sodium 40 mg 10/18/18 09:00 10/25/18 09:33 Protonix Inj IV.PUSH 40 mg DAILY GOLDY Administration Ranolazine 500 mg 10/17/18 18:00 10/26/18 06:17 Ranexa PO 500 mg Q12H GOLDY Administration Senna/Docusate Sodium 1 tab 10/17/18 21:00 10/25/18 21:56 Jacqui-Colace PO Not Given BID GOLDY Sennosides 17.2 mg 10/17/18 10:42 10/24/18 18:24 Senokot PO 17.2 mg Q12H PRN Administration Moderate Constipation Sertraline HCl 50 mg 10/18/18 09:00 10/25/18 09:32 Zoloft PO 50 mg DAILY GOLDY Administration Sodium Chloride 2 ml 10/17/18 21:00 10/25/18 21:55 Ns Flush IV.FLUSH 2 ml BID GOLDY Administration Temazepam 7.5 mg 10/17/18 21:00 10/25/18 21:56 Restoril PO 7.5 mg HS GOLDY Administration Objective Remarks: General: Middle-aged female, awake and alert, responsive and speaks to me in full sentences, she is on a bedside recliner this morning. She is no longer on oxygen supplementation. HEENT: Head atraumatic normal cephalic, conjunctivae pale, sclerae anicteric, oral exam dry mucous membranes. Neck exam no cervical lymphadenopathy, she has a left-sided IJ triple lumen catheter. Respiratory: Good air movement over the right hemithorax, decreased breath sounds over the left hemithorax, breath sounds are improved when compared to yesterday. Chest: All chest tubes have been removed Cardiovascular: Regular rate and rhythm, S1-S2 no obvious murmurs rubs gallops. Well-healing sternotomy incision noted. Abdominal: Protuberant abdomen, soft, no obvious tenderness, positive bowel sounds no palpable organ enlargement. Lower extremities bilateral pretibial edema no calf tenderness. PROPERTY INSURANCE CLAIMS EXAMINER: No focal sensorimotor deficits. Skin: Nonfocal examination. Muscular skeletal: Adequate muscle mass, tone and strength. Assessment/Plan - Plan Ms. Lira is a 58-year-old female with multiple medical comorbid conditions including long-standing history of diabetes, chronic kidney disease, coronary artery disease, recent CABG with hyperacute thromboses of the grafts. The hyper acute thrombosis was attributed to an underlying heparin-induced thrombocytopenia with thrombosis (AKILAH). The patient had been on therapeutic anticoagulation with Arixtra in combination with dual antiplatelet therapy with Plavix and aspirin. The patient returned to the emergency room after 1 week with increased chest pain and associated shortness of breath. CTA showed she has small volume right sided pulmonary embolism associated with complicated/ loculated left-sided pleural effusion concerning for hemothorax. Hematology service has been asked to see this patient to reconcile the competing issues i.e. ongoing hemo-thorax with drop in hemoglobin hematocrit in the setting of heparin-induced thrombocytopenia with a pulmonary embolism. Recommendations: 1. Left-sided hemothorax: Underwent video-assisted thoracoscopic surgery (VATS ) on 10/19/2018. Blood and clots amounting to approximately 900 cc were evacuated. There was no suggestion of active/ongoing bleeding intraoperatively. Since undergoing VATS procedure all of her chest tubes have been drained. No evidence of recurrent/reaccumulation of hemothorax. Her hemoglobin and hematocrit are marginally improved over the past 24 hours. There is no evidence of ongoing bleeding. 2. Recent history of heparin-induced thrombocytopenia with thrombosis (AKILAH), hyperacute thromboses of coronary artery grafts, she also has a thrombus within the right ventricle: Patient will continue with argatroban for anticoagulation, she will remain on clopidogrel as an antiplatelet agent. The patient has been on therapeutic anticoagulation with Argatroban since 10/21/2018. As of this morning I have discontinued Argatroban and have transitioned her to Pradaxa which is an oral direct thrombin inhibitor at the standard therapeutic dose of 150 mg twice daily. She is now been on Pradaxa for 24 hours. She appears to be doing very well from a clinical standpoint. Continue Plavix and Pradaxa. Anticipate transfer to regular [facility] unit over the course of today.
[2018-10-26] MEDS: Senna/Docusate Sodium 8.6/50 MG Tablet PO SCH ×2 (08:36→22:14)
[2018-10-26] MEDS: Sertraline 50 MG Tablet PO SCH (08:36)
[2018-10-26] MEDS: Pantoprazole Inj 40 MG Vial IV.PUSH SCH (08:39)
--- NOTE | 2018-10-26 12:46 | P.PNIM ---
Subjective Interval history: Patient's primary complaint today is drainage her left side chest tube wound. Chest tube is recently removed. Patient reports soaking through dressings. No shortness of breath. No chest pain. Physical Exam Vital signs: Last Vital Signs Temp 98.4 F 10/26/18 08:00 Pulse 101 H 10/26/18 09:00 Resp 24 10/26/18 09:00 BP 132/88 10/26/18 09:00 Pulse Ox 96 10/26/18 09:00 Intake & Output 10/24/18 10/25/18 10/26/18 10/27/18 06:59 06:59 06:59 06:59 Intake Total 550 / 550 2390 / 2390 1200 / 1200 Output Total 2029 / 2030 2060 / 2060 2750 / 2750 Balance -1480 / -1480 330 / 330 -1550 / -1550 Weight 83 kg 82.5 kg 82.5 kg Narrative: GENERAL: NAD, A&Ox3 HEAD: Normocephalic. NECK: Supple, trachea midline. No lymphadenopathy. EYES: No scleral icterus. No injection or drainage. CARDIOVASCULAR: Regular rate and rhythm without murmurs, gallops, or rubs. RESPIRATORY: Breath sounds equal bilaterally. No accessory muscle use. GASTROINTESTINAL: Abdomen soft, non-tender, nondistended. MUSCULOSKELETAL: No cyanosis, or edema. SKIN: Warm and dry. Left-sided chest tube wound is bandaged, drainage present. NEURO: No focal neurological deficits. Urinary Catheter Management Straight: Cath placed during this visit: yes Insertion date: 10/18/18 Insertion time: 09:30 Indwelling Urethral Catheter: Cath placed during this visit: yes, but has since been removed by the nurse Insertion date: 10/18/18 Insertion time: 09:30 Removal date: 10/21/18 Removal time: 18:00 Results Labs CBC & Chem 7: 10/26/18 03:50 10/26/18 03:50 Procedures Procedures: VATS with evacuation of hemothorax on 10/19/2018. Echocardiogram 10/17/2018 The left ventricular systolic function is low normal with an estimated ejection fraction in the range of 50- 55%. Doppler parameters are consistent with impaired left ventricular relaxtion ( grade 1 diastolic dysfunction). The right ventricular systoilc function is moderately decreased. Unable to determine if there is still possible thrombus at the RV apex ( compared to previous echo). There is trace tricuspid valve regurgitation. Small apical locuated pericardial effusion, no signs of tamponade. Left pleural effusion. Assessment and Plan Plan 58-year-old female with a history of coronary artery disease, type 2 diabetes mellitus who underwent off-pump CABG x4 on 09/29/2018 and cardiac catheterization on the same day due to perioperative STEMI presented to the emergency department on 10/17/2018 due to chest pain and shortness of breath. Chest x-ray showed extensive left-sided infiltrate/effusion. Patient was diagnosed with pulmonary embolism. Patient underwent CABG x 4 on 09/29/2018. Intraoperatively, she had significant ST elevation indicating inferior ST elevation [place] and subsequently she underwent emergent cardiac cath. Patient underwent MAXWELL to OM1, LAD. balloon angiopasty to OM2. Patient had a complicated course and was diagnosed with heparin-induced thrombocytopenia. She was discharged on 10/10/2018 on Arixtra. During this hospitalization patient underwent VATS procedure with evacuation of hemothorax. Her chest tube was discontinued on 10/24/2018. Hematology, cardiothoracic surgery as well as cardiology closely followed this patient. Critical care medicine transfer the care of the patient to hospitalist service on 10/25/2018. 10/26/18: patient reports left sided drainage today, no respiratory distress or chest pain Chest tube drainage at left Obtain chest x-ray to ensure no air leakage Follow clinically No shortness of breath reported by patient Subacute right lower lobe pulmonary embolism Resolved left spontaneous hemothorax VATS procedure on 10/19/2018. Chest tube removed on 10/24/2018. Continue oxygen as needed Continue breathing treatments as needed Multivessel coronary artery disease Recent acute STEMI perioperatively. CABG x4 on 09/29/2018 Continue Pradaxa 150 mg p.o. twice daily Continue Plavix Continue Lasix Continue Ranexa Cardiology following Subacute heparin Induced thrombocytopenia and thrombosis (AKILAH) Avoid heparin Currently on Pradaxa instead Follow CBC DVT prophylaxis Pradaxa Progress Note: Quality VTE Deep Vein Thrombosis/Pulmonary Embolism Present on Admission: No
--- NOTE | 2018-10-26 14:09 | XR ---
EXAM DATE: 10/26/2018 1:49 PM EST AGE/SEX: 58 years / Female INDICATIONS: Evaluate for free air. Cough. CLINICAL DATA: This is the patient's subsequent encounter. Patient reports that signs and symptoms h ave been present for 1 month and indicates a pain score of 0/10. MEDICAL/SURGICAL HISTORY: . Cardiovascular disease. Diabetes. Myocardial infarction. . CABG. Hysterectomy. Stent placement. [place]PAR[place] [facility] [place], 10/25/2018. [facility] [place] 1V SINGLE AP, 10/24/2018. . FINDINGS: Portable AP view of the chest demonstrates a normal-sized cardiac silhouette post median sternotomy. Multiple EKG lines overlie the patient. There is a stable pleural-parenchymal opacity on the left. Ri ght lung demonstrates no definite abnormality and no pneumothorax is seen. The bones demonstrate no a cute finding. CONCLUSION: 1. No free air is visualized. 2. Stable left lung airspace consolidation and pleural-based opacity likely representing an effusion . Electronically signed by: Dave Kaye MD 10/26/2018 2:08 PM EST
--- NOTE | 2018-10-26 16:44 | P.DIET ---
Nutritional Evaluation Type of nutrition evaluation: follow-up Nutrition consult regarding: Diet Evaluation Screening comments: 10/20 NPO alert x3 days Objective - Diagnosis sepsis, pneumonia, left pleural effusion - Objective % IBW: 155 (IBW = 110lb) Body Weight Used for Calculations: IBW Energy Needs - Lower Range (kCal/kg): 25 Energy Needs - Upper Range (kCal/kg): 30 Lower Limit kCal/kg (kCals): 1,250 Upper Limit kCal/kg (kCals): 1,500 Lower Limit Protein Factor (Grams per Kg): 1.0 Upper Limit Protein Factor (Grams per Kg): 1.2 Lower Protein Needs (Protein): 50 Upper Protein Needs (Protein): 60 Dietitian Reviewed in Medical Record: Curent medications, Intake & Output, Labs , Medical history Diet Order: 1800ADA Oral Diet Intake Amount: Good 75-90% Objective Comments: PMH: chest pain, chronic renal insufficiency stage II, coronary artery disease. DM, CA Labs: POC glucose 116 260 92 Assessment Assessment: Pt extubated on 10/20, s/p CABG x4. Pt stated she has a "declining" appetite, consuming around 50-75% of most meals. Pt mentioned she does not like supplements at all and that lunch today tasted bitter. Pt also mentioned sugar substitutes cause pain in her body, namely her joints. Continue to monitor PO intake. Labs reviewed, dietitian following. Recommendations: 1. Continue to monitor PO intake 2. Dietitian following Dietitian to Monitor: Lab values, Glucose level, Intake & Output, PO Intake, Medical course
[2018-10-27] MEDS: Insulin NovoLIN Regular Correctional Sugar Inj SQ SCH ×4 (00:14→16:59)
--- NOTE | 2018-10-27 00:32 | P.PNCA ---
Subjective Interval history: Walked around the unit Overall feeling cold, minor cough noted Medications and Allergies Active Medications: Active Medications Hydrocodone Bitart/Acetaminophen ([place] 5/325) 1 tab PO Q6H PRN PRN Reason: PAIN 1-10 Last Admin: 10/27/18 00:29 Dose: 1 tab Al Hydroxide/Mg Hydroxide (Milk Of Magnesia Liq) 30 ml PO Q12H PRN PRN Reason: Mild Constipation Albuterol (Albuterol Neb (Prn)) 2.5 mg NEB Q2HR NEB PRN PRN Reason: SHORTNESS OF BREATH/WHEEZING Bisacodyl (Dulcolax Supp) 10 mg RECTAL DAILY PRN PRN Reason: SEVERE CONSITIPATION Calcium Carbonate (Tums Chew) 500 mg CHEW Q6H PRN PRN Reason: INDIGESTION Last Admin: 10/25/18 22:34 Dose: 500 mg Clopidogrel Bisulfate (Plavix) 75 mg PO DAILY [facility] Last Admin: 10/26/18 08:35 Dose: 75 mg Dabigatran (Pradaxa) 150 mg PO BID [facility] Last Admin: 10/26/18 22:14 Dose: 150 mg Dextrose (D50w Vial) 50 ml IV.PUSH UNSCH PRN PRN Reason: PER HYPOGLYCEMIA PROTOCOL Furosemide (Lasix) 40 mg PO DAILY PRN PRN Reason: SEE LABEL COMMENTS Glucagon (Glucagon Inj) 1 mg OTHER PRN PRN PRN Reason: for Hypoglycemia Protocol Morphine Sulfate (Morphine Inj) 30 mg in 30 mls @ 0 mls/hr ALUMINUM FABRICATION SUPERVISOR UNSCH PRN PRN Reason: prn pain Last Admin: 10/25/18 08:00 Dose: 0 mls/hr Insulin Human Regular (Novolin R Correctional Sugar Inj) 0 units SQ Q6HR [facility]; Protocol Last Admin: 10/27/18 00:14 Dose: 10 units Lactulose (Lactulose Liq) 30 ml PO DAILY PRN PRN Reason: SEVERE CONSITIPATION Naloxone HCl (Narcan Inj) 0.4 mg IV.PUSH PRN PRN PRN Reason: Resp rate < 10 Ondansetron HCl (Zofran Inj) 4 mg IV.PUSH Q6H PRN PRN Reason: NAUSEA OR VOMITING Last Admin: 10/20/18 21:06 Dose: 4 mg Pantoprazole Sodium (Protonix Inj) 40 mg IV.PUSH DAILY [facility] Last Admin: 10/26/18 08:39 Dose: 40 mg Ranolazine (Ranexa) 500 mg PO Q12H [facility] Last Admin: 10/26/18 18:23 Dose: 500 mg Senna/Docusate Sodium (Jacqui-Colace) 1 tab PO BID [facility] Last Admin: 10/26/18 22:14 Dose: Not Given Sennosides (Senokot) 17.2 mg PO Q12H PRN PRN Reason: Moderate Constipation Last Admin: 10/24/18 18:24 Dose: 17.2 mg Sertraline HCl (Zoloft) 50 mg PO DAILY [facility] Last Admin: 10/26/18 08:36 Dose: 50 mg Sodium Chloride (Ns Flush) 2 ml IV.FLUSH BID [facility] Last Admin: 10/26/18 22:14 Dose: 2 ml Sodium Chloride (Ns Flush) 2 ml IV.FLUSH PRN PRN PRN Reason: FLUSH AFTER USING IV ACCESS Temazepam (Restoril) 7.5 mg PO HS [facility] Last Admin: 10/26/18 22:14 Dose: 7.5 mg Allergies Allergy/AdvReac Type Severity Reaction Status Date / Time heparin Allergy Severe HEPARIN-INDUCED Verified 10/17/18 09:15 THROMBOCYTOPENIA metoprolol Allergy Severe HALLUCINATI Verified 10/17/18 09:15 ONS famotidine Allergy Unknown RASH Verified 10/17/18 09:15 lisinopril Allergy Unknown Itching Verified 10/17/18 09:15 insulin detemir AdvReac Unknown Diarrhea Verified 10/17/18 09:15 Home Medications Medication Instructions Recorded Confirmed Type aspirin [Aspir-81] 81 mg PO DAILY 08/03/18 10/17/18 History atorvastatin 20 mg PO DAILY 08/03/18 10/17/18 History insulin glargine [Lantus U-100 38 unit SUB-Q DAILY 08/03/18 10/17/18 History Insulin] insulin lispro [Humalog U-100 30 unit SUB-Q TIDAC 08/03/18 10/17/18 History Insulin] methocarbamol 500 mg PO QID 08/03/18 10/17/18 History nitroglycerin 0.3 mg SUBLINGUAL Q5-15M PRN 08/03/18 10/17/18 History sertraline 50 mg PO DAILY 08/03/18 10/17/18 History temazepam 7.5 mg PO HS 08/03/18 10/17/18 History docusate sodium [DOK] 100 mg PO BID PRN 10/17/18 10/17/18 History Physical Exam Vital signs: Vital Signs 10/26/18 01:00 10/26/18 02:00 10/26/18 03:00 Temperature Pulse Rate 99 H 100 H 95 H Respiratory Rate 41 H 22 31 H Blood Pressure 135/91 H 137/98 H 130/88 Pulse Oximetry 98 98 98 10/26/18 04:00 10/26/18 05:00 10/26/18 06:00 Temperature 98.5 F Pulse Rate 96 H 95 H 94 H Respiratory Rate 22 20 31 H Blood Pressure 130/87 129/89 127/81 Pulse Oximetry 96 96 94 L 10/26/18 07:00 10/26/18 08:00 10/26/18 08:07 Temperature 98.4 F Pulse Rate 104 H 91 H Respiratory Rate 26 H 18 Blood Pressure 145/92 H 118/80 Pulse Oximetry 95 94 L 94 L 10/26/18 08:08 10/26/18 08:21 10/26/18 08:33 Temperature Pulse Rate 97 H Respiratory Rate 32 H Blood Pressure 127/92 H Pulse Oximetry 94 L 95 10/26/18 08:34 10/26/18 09:00 10/26/18 10:00 Temperature Pulse Rate 110 H 101 H 101 H Respiratory Rate 17 24 28 H Blood Pressure 127/92 H 132/88 121/80 Pulse Oximetry 95 96 95 10/26/18 11:00 10/26/18 12:00 10/26/18 13:00 Temperature 98.7 F Pulse Rate 99 H 99 H 105 H Respiratory Rate 30 H 25 H 34 H Blood Pressure 127/82 126/90 135/85 Pulse Oximetry 95 95 95 10/26/18 13:59 10/26/18 14:00 10/26/18 15:00 Temperature Pulse Rate 111 H 110 H 109 H Respiratory Rate 33 H 26 H 29 H Blood Pressure 148/94 H 144/91 H Pulse Oximetry 94 L 94 L 93 L 10/26/18 16:23 10/26/18 16:25 10/26/18 17:00 Temperature Pulse Rate 118 H 114 H 99 H Respiratory Rate 32 H 26 H 25 H Blood Pressure 149/88 H 127/85 Pulse Oximetry 96 95 10/26/18 18:00 10/26/18 20:00 Temperature 98.4 F Pulse Rate 96 H 109 H Respiratory Rate 20 24 Blood Pressure 129/85 122/78 Pulse Oximetry 93 L 96 Intake & Output 10/26/18 10/26/18 10/27/18 06:59 18:59 06:59 Intake Total 300 / 300 480 / 480 Output Total 1550 / 1550 Balance -1250 / -1250 480 / 480 Weight 82.5 kg Intake: Oral 300 / 300 480 / 480 Output: Urine 1550 / 1550 Other: # Voids 4 5 # Incontinent Voids 0 Date of Last Bowel Movement 10/26/18 10/26/18 10/26/18 # Bowel Movements 2 1 Narrative: GENERAL: NAD, A&Ox3 HEAD: Normocephalic. NECK: Supple, trachea midline. No lymphadenopathy. EYES: No scleral icterus. No injection or drainage. CARDIOVASCULAR: Regular rate and rhythm without murmurs, gallops, or rubs. RESPIRATORY: Breath sounds equal bilaterally. No accessory muscle use. GASTROINTESTINAL: Abdomen soft, non-tender, nondistended. MUSCULOSKELETAL: No cyanosis, or edema. SKIN: Warm and dry. Left-sided chest tube wound is bandaged, drainage present. NEURO: No focal neurological deficits. - Urinary Catheter Management Straight Cath placed during this visit: yes Reason for continuing: Not indwelling catheter Insertion date: 10/18/18 Insertion time: 09:30 Indwelling Urethral Catheter Cath placed during this visit: yes, but has since been removed by the nurse Reason for continuing: Not indwelling catheter Insertion date: 10/18/18 Insertion time: 09:30 Removal date: 10/21/18 Removal time: 18:00 Results 10/26/18 03:50 10/26/18 03:50 CBC 10/25/18 10/26/18 Range/Units 04:45 03:50 WBC 7.6 6.7 (4.0-11.0) th/mm3 RBC 3.05 L 3.21 L (4.00-5.30) mil/mm3 Hgb 9.1 L 9.6 L (11.6-15.3) gm/dL Hct 26.9 L 28.0 L (35.0-46.0) % Plt Count 315 308 (150-450) th/mm3 Comprehensive Metabolic Panel 10/25/18 10/26/18 Range/Units 04:45 03:50 Sodium 136 137 (136-145) meq/L Potassium 3.9 4.1 (3.5-5.1) meq/L Chloride 103 102 (98-107) meq/L Carbon Dioxide 27.3 29.2 (21.0-32.0) meq/L BUN 5 L 5 L (7-18) mg/dL Creatinine 0.56 0.60 (0.50-1.00) mg/dL Calcium 8.0 L 7.9 L (8.5-10.1) mg/dL Intake and Output 10/26/18 10/26/18 10/27/18 14:59 22:59 06:59 Intake Total 480 / 480 Balance 480 / 480 Intake: Oral 480 / 480 Other: # Voids 5 Date of Last Bowel Movement 10/25/18 10/26/18 # Bowel Movements 1 - Imaging and Cardiology Imaging: Impressions Chest X-Ray 10/25/18 06:00 CONCLUSION: Interval removal of thoracostomy tube without pneumothorax. Persistent areas of consolidation bilaterally. Chest X-Ray 10/26/18 00:00 CONCLUSION: 1. No free air is visualized. 2. Stable left lung airspace consolidation and pleural-based opacity likely representing an effusion. Assessment and Plan - Assessment (1) Hemothorax Code(s): J94.2 - Hemothorax Status: Acute (2) Elevated troponin Code(s): R74.8 - Abnormal levels of other serum enzymes Status: Acute (3) CAD (coronary artery disease), [place] coronary artery Code(s): I25.10 - Atherosclerotic heart disease of [place] coronary artery without angina pectoris Status: Chronic (4) S/P coronary artery bypass graft x 4 Code(s): Z95.1 - Presence of aortocoronary bypass graft Status: Chronic (5) Heparin induced thrombocytopenia (HIT) Code(s): D75.82 - Heparin induced thrombocytopenia (HIT) Status: Chronic (6) Pneumonia Code(s): J18.9 - Pneumonia, unspecified organism Status: Acute (7) Acute pulmonary embolism Code(s): I26.99 - Other pulmonary embolism without acute cor pulmonale Status : Acute - Plan 1) Hx of CAD, previous CABGx4 with acute graft closure due to HIT, s/p complex PCI Unfortunately with recent complex PCI would not stop Plavix due to high risk of stent thrombosis 2) Hemothorax Chest tube placed by critical care VATS POD#6 Chest tubes out 3) Doubt PNA 4) Acute pulmonary embolism Argatroban restarted 5) Minimal elevated troponins secondary to pulmonary embolism as well as recent events No acute coronary syndrome noted 6) Complex case Ultimately need to be on combination of anticoagulation/antiplatelet Transferred to Pradaxa and Plavix
[2018-10-27 04:35] LABS: Baso % (Auto) 0.6 % (0.0-2.0); Eos # (Auto) 0.1 th/mm3 (0.0-0.4); Eos % (Auto) 2.3 % (0.0-4.0); Hematocrit 28.6 % (35.0-46.0); Hemoglobin 9.7 gm/dL (11.6-15.3); Lymph # (Auto) 1.8 th/mm3 (1.0-4.8); Lymph % (Auto) 26.9 % (9.0-44.0); Mean Corpuscular HGB Conc 33.7 % (32.0-36.0); Mean Corpuscular Hemoglobin 29.5 pg (27.0-34.0); Mean Corpuscular Volume 87.3 fL (80.0-100.0); Mean Platelet Volume 6.9 fL (7.0-11.0); Mono # (Auto) 0.7 th/mm3 (0.0-0.9); Neut % (Auto) 60.2 % (16.0-70.0); Platelet Count 322 th/mm3 (150-450); Red Blood Count 3.28 mil/mm3 (4.00-5.30); Red Cell Distribution Width 15.3 % (11.6-17.2); White Blood Count 6.6 th/mm3 (4.0-11.0)
[2018-10-27 04:54] LABS: Alanine Aminotransferase 26 U/L (10-53); Albumin 2.4 g/dL (3.4-5.0); Anion Gap 7 meq/L (5-15); Aspartate Aminotransferase 21 U/L (15-37); Blood Urea Nitrogen 5 mg/dL (7-18); Calcium 8.1 mg/dL (8.5-10.1); Carbon Dioxide 29.3 meq/L (21.0-32.0); Chloride 101 meq/L (98-107); Glomerular Filtration Rate Greater Than 89 mL/min (>89); Glucose,Random 157 mg/dL (74-106); Potassium 3.9 meq/L (3.5-5.1); Sodium 137 meq/L (136-145)
[2018-10-27 04:56] LABS: Alkaline Phosphatase 261 U/L (45-117); Total Protein 6.4 g/dL (6.4-8.2)
[2018-10-27] MEDS: Ranolazine 500 MG 12HR ER Tablet PO SCH ×2 (05:51→16:59)
--- NOTE | 2018-10-27 07:54 | P.PNONC ---
Subjective Interval history: Patient seen and examined, vital signs, labs, medications and events of the past 24 hours reviewed. Subjectively; patient reports feeling well this morning. She was up ambulating in the room when I walked in. Last night she was transferred from the critical care unit to the CIC/oncology unit. She tells me her breathing is comfortable, she is eating well and she denies overt bleeding. There has been less oozing and pain associated with the left-sided thoracic incisions. Objective Vital Signs/Intake & Output: Vital Signs 10/26/18 08:00 10/26/18 08:07 10/26/18 08:08 Temperature 98.4 F Pulse Rate 91 H Respiratory Rate 18 Blood Pressure 118/80 Pulse Oximetry 94 L 94 L 94 L 10/26/18 08:21 10/26/18 08:33 10/26/18 08:34 Temperature Pulse Rate 97 H 110 H Respiratory Rate 32 H 17 Blood Pressure 127/92 H 127/92 H Pulse Oximetry 95 95 10/26/18 09:00 10/26/18 10:00 10/26/18 11:00 Temperature Pulse Rate 101 H 101 H 99 H Respiratory Rate 24 28 H 30 H Blood Pressure 132/88 121/80 127/82 Pulse Oximetry 96 95 95 10/26/18 12:00 10/26/18 13:00 10/26/18 13:59 Temperature 98.7 F Pulse Rate 99 H 105 H 111 H Respiratory Rate 25 H 34 H 33 H Blood Pressure 126/90 135/85 Pulse Oximetry 95 95 94 L 10/26/18 14:00 10/26/18 15:00 10/26/18 16:23 Temperature Pulse Rate 110 H 109 H 118 H Respiratory Rate 26 H 29 H 32 H Blood Pressure 148/94 H 144/91 H Pulse Oximetry 94 L 93 L 10/26/18 16:25 10/26/18 17:00 10/26/18 18:00 Temperature Pulse Rate 114 H 99 H 96 H Respiratory Rate 26 H 25 H 20 Blood Pressure 149/88 H 127/85 129/85 Pulse Oximetry 96 95 93 L 10/26/18 20:00 10/27/18 00:00 10/27/18 04:00 Temperature 98.4 F 99.4 F 99.0 F Pulse Rate 109 H 100 H 96 H Respiratory Rate 24 16 16 Blood Pressure 122/78 123/79 114/74 Pulse Oximetry 96 96 96 10/27/18 05:58 10/27/18 06:17 10/27/18 06:40 Temperature 99.5 F Pulse Rate Respiratory Rate Blood Pressure 133/94 H 114/78 Pulse Oximetry Intake & Output 10/26/18 10/27/18 10/27/18 18:59 06:59 18:59 Intake Total 480 / 480 240 / 240 Output Total 550 / 550 Balance 480 / 480 -310 / -310 Weight 82.4 kg Intake: Oral 480 / 480 240 / 240 Output: Urine 550 / 550 Other: # Voids 5 Date of Last Bowel Movement 10/26/18 10/26/18 # Bowel Movements 1 Result Diagrams: 10/27/18 02:48 10/27/18 02:48 Laboratory Results: Laboratory Results - last 24 hr 10/26/18 10/26/18 10/26/18 13:36 18:40 23:27 WBC RBC Hgb Hct MCV MCH MCHC RDW Plt Count MPV Neut % (Auto) Lymph % (Auto) Hall % (Auto) Eos % (Auto) Baso % (Auto) Neut # (Auto) Lymph # (Auto) [place] # (Auto) Eos # (Auto) Baso # (Auto) WBC Differential Differential Comment Sodium Potassium Chloride Carbon Dioxide Anion Gap BUN Creatinine Estimated GFR POC Glucose 161 H 172 H 206 H Random Glucose Calcium Total Bilirubin AST ALT Alkaline Phosphatase Total Protein Albumin 10/27/18 10/27/18 10/27/18 02:48 02:48 05:44 WBC 6.6 RBC 3.28 L Hgb 9.7 L Hct 28.6 L MCV 87.3 MCH 29.5 MCHC 33.7 RDW 15.3 Plt Count 322 MPV 6.9 L Neut % (Auto) 60.2 Lymph % (Auto) 26.9 Hall % (Auto) 10.0 H Eos % (Auto) 2.3 Baso % (Auto) 0.6 Neut # (Auto) 4.0 Lymph # (Auto) 1.8 Hall # (Auto) 0.7 Eos # (Auto) 0.1 Baso # (Auto) 0.0 WBC Differential . Differential Comment Auto diff final Sodium 137 Potassium 3.9 Chloride 101 Carbon Dioxide 29.3 Anion Gap 7 BUN 5 L Creatinine 0.71 Estimated GFR Greater than 89 POC Glucose 101 Random Glucose 157 H Calcium 8.1 L Total Bilirubin 0.8 AST 21 ALT 26 Alkaline Phosphatase 261 H Total Protein 6.4 Albumin 2.4 L Imaging Studies: Impressions Chest X-Ray 10/26/18 00:00 CONCLUSION: 1. No free air is visualized. 2. Stable left lung airspace consolidation and pleural-based opacity likely representing an effusion. Medications: Active Medications Generic Name Dose Route Start Last Admin Trade Name Freq PRN Reason Stop Dose Admin Hydrocodone Bitart/Acetaminophen 1 tab 10/23/18 13:34 10/27/18 06:16 [place] 5/325 PO 1 tab Q6H PRN Administration PAIN 1-10 Calcium Carbonate 500 mg 10/22/18 15:48 10/25/18 22:34 Tums Chew CHEW 500 mg Q6H PRN Administration INDIGESTION Clopidogrel Bisulfate 75 mg 10/18/18 09:00 10/26/18 08:35 Plavix PO 75 mg DAILY GOLDY Administration Dabigatran 150 mg 10/25/18 09:00 10/26/18 22:14 Pradaxa PO 150 mg BID GOLDY Administration Morphine Sulfate 30 mg in 30 mls @ 0 mls/hr 10/21/18 11:35 10/25/18 08:00 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 0 mls/hr UNSCH PRN Administration prn pain 0 MG/HR Insulin Human Regular 0 units 10/17/18 18:00 10/27/18 05:51 Novolin R Correctional Sugar Inj SQ Not Given Q6HR [facility] Protocol Ondansetron HCl 4 mg 10/19/18 19:50 10/20/18 21:06 Zofran Inj IV.PUSH 4 mg Q6H PRN Administration NAUSEA OR VOMITING Pantoprazole Sodium 40 mg 10/18/18 09:00 10/26/18 08:39 Protonix Inj IV.PUSH 40 mg DAILY GOLDY Administration Ranolazine 500 mg 10/17/18 18:00 10/27/18 05:51 Ranexa PO 500 mg Q12H GOLDY Administration Senna/Docusate Sodium 1 tab 10/17/18 21:00 10/26/18 22:14 Jacqui-Colace PO Not Given BID GOLDY Sennosides 17.2 mg 10/17/18 10:42 10/24/18 18:24 Senokot PO 17.2 mg Q12H PRN Administration Moderate Constipation Sertraline HCl 50 mg 10/18/18 09:00 10/26/18 08:36 Zoloft PO 50 mg DAILY GOLDY Administration Sodium Chloride 2 ml 10/17/18 21:00 10/26/18 22:14 Ns Flush IV.FLUSH 2 ml BID GOLDY Administration Temazepam 7.5 mg 10/17/18 21:00 10/26/18 22:14 Restoril PO 7.5 mg HS GOLDY Administration Objective Remarks: General: Middle-aged female, awake and alert, responsive and speaks to me in full sentences, she was up and out of bed this morning HEENT: Head atraumatic normal cephalic, conjunctivae pale, sclerae anicteric, oral exam dry mucous membranes. Neck exam no cervical lymphadenopathy. Respiratory: Good air movement over the right hemithorax, decreased breath sounds over the left hemithorax, breath sounds are improved when compared to yesterday. Chest: All chest tubes have been removed Cardiovascular: Regular rate and rhythm, S1-S2 no obvious murmurs rubs gallops. Well-healing sternotomy incision noted. Abdominal: Protuberant abdomen, soft, no obvious tenderness, positive bowel sounds no palpable organ enlargement. Lower extremities bilateral pretibial edema no calf tenderness. CLERICAL ASSISTANT: No focal sensorimotor deficits. Skin: Nonfocal examination. Muscular skeletal: Adequate muscle mass, tone and strength. Assessment/Plan - Plan Ms. Lira is a 58-year-old female with multiple medical comorbid conditions including long-standing history of diabetes, chronic kidney disease, coronary artery disease, recent CABG with hyperacute thromboses of the grafts. The hyper acute thrombosis was attributed to an underlying heparin-induced thrombocytopenia with thrombosis (AKILAH). The patient had been on therapeutic anticoagulation with Arixtra in combination with dual antiplatelet therapy with Plavix and aspirin. The patient returned to the emergency room after 1 week with increased chest pain and associated shortness of breath. CTA showed she has small volume right sided pulmonary embolism associated with complicated/ loculated left-sided pleural effusion concerning for hemothorax. Hematology service has been asked to see this patient to reconcile the competing issues i.e. ongoing hemo-thorax with drop in hemoglobin hematocrit in the setting of heparin-induced thrombocytopenia with a pulmonary embolism. Recommendations: 1. Left-sided hemothorax: Clinically seems to have resolved. Hemoglobin hematocrit stable, she is on therapeutic anticoagulation with Pradaxa and is on antiplatelet therapy with Plavix. 2. Recent history of heparin-induced thrombocytopenia with thrombosis (AKILAH) with resultant hyperacute thromboses of coronary artery grafts, she also has a thrombus within the right ventricle: She is doing very well from a clinical standpoint at this time. She is clear for discharge home from a hematology standpoint on Pradaxa 150 mg twice daily. For management of coronary artery disease and recent intracoronary stent placement she has been advised continuation of Plavix. I will schedule outpatient follow-up with me in the upcoming weeks for routine outpatient monitoring. At today's visit I had an extended conversation with the patient regarding risk of bleeding, I have advised her to in particular monitor her stools for occult and overt bleeding such as melena and hematochezia.
[2018-10-27] MEDS: Pantoprazole Inj 40 MG Vial IV.PUSH SCH (08:15)
[2018-10-27] MEDS: Sertraline 50 MG Tablet PO SCH (08:16)
[2018-10-27] MEDS: Senna/Docusate Sodium 8.6/50 MG Tablet PO SCH ×2 (08:20→20:04)
--- NOTE | 2018-10-27 13:01 | P.PNIM ---
Subjective Interval history: Left side is still draining. Patient feels that she has increased output at her wound compared to yesterday. She been cleared by surgeon and cardiology for discharge home. If drainage output decreases or remains the same, over the next 24 hours, patient will be medically clear for discharge home. Physical Exam Vital signs: Last Vital Signs Temp 98.0 F 10/27/18 08:00 Pulse 96 H 10/27/18 08:00 Resp 18 10/27/18 08:00 BP 104/68 10/27/18 08:00 Pulse Ox 98 10/27/18 08:00 Intake & Output 10/25/18 10/26/18 10/27/18 10/28/18 06:59 06:59 06:59 06:59 Intake Total 2390 / 2390 1200 / 1200 720 / 720 Output Total 2060 / 2060 2750 / 2750 550 / 550 Balance 330 / 330 -1550 / -1550 170 / 170 Weight 82.5 kg 82.5 kg 82.4 kg Narrative: GENERAL: NAD, A&Ox3 HEAD: Normocephalic. NECK: Supple, trachea midline. No lymphadenopathy. EYES: No scleral icterus. No injection or drainage. CARDIOVASCULAR: Regular rate and rhythm without murmurs, gallops, or rubs. RESPIRATORY: Breath sounds equal bilaterally. No accessory muscle use. GASTROINTESTINAL: Abdomen soft, non-tender, nondistended. MUSCULOSKELETAL: No cyanosis, or edema. SKIN: Warm and dry. Left-sided chest tube wound is bandaged, drainage present. NEURO: No focal neurological deficits. Urinary Catheter Management Straight: Cath placed during this visit: yes Insertion date: 10/18/18 Insertion time: 09:30 Indwelling Urethral Catheter: Cath placed during this visit: yes, but has since been removed by the nurse Insertion date: 10/18/18 Insertion time: 09:30 Removal date: 10/21/18 Removal time: 18:00 Results Labs CBC & Chem 7: 10/27/18 02:48 10/27/18 02:48 Imaging Imaging: Impressions Chest X-Ray 10/26/18 00:00 CONCLUSION: 1. No free air is visualized. 2. Stable left lung airspace consolidation and pleural-based opacity likely representing an effusion. Procedures Procedures: VATS with evacuation of hemothorax on 10/19/2018. Echocardiogram 10/17/2018 The left ventricular systolic function is low normal with an estimated ejection fraction in the range of 50- 55%. Doppler parameters are consistent with impaired left ventricular relaxtion ( grade 1 diastolic dysfunction). The right ventricular systoilc function is moderately decreased. Unable to determine if there is still possible thrombus at the RV apex ( compared to previous echo). There is trace tricuspid valve regurgitation. Small apical locuated pericardial effusion, no signs of tamponade. Left pleural effusion. Assessment and Plan Plan 58-year-old female with a history of coronary artery disease, type 2 diabetes mellitus who underwent off-pump CABG x4 on 09/29/2018 and cardiac catheterization on the same day due to perioperative STEMI presented to the emergency department on 10/17/2018 due to chest pain and shortness of breath. Chest x-ray showed extensive left-sided infiltrate/effusion. Patient was diagnosed with pulmonary embolism. Patient underwent CABG x 4 on 09/29/2018. Intraoperatively, she had significant ST elevation indicating inferior ST elevation GA and subsequently she underwent emergent cardiac cath. Patient underwent MAXWELL to OM1, LAD. balloon angiopasty to OM2. Patient had a complicated course and was diagnosed with heparin-induced thrombocytopenia. She was discharged on 10/10/2018 on Arixtra. During this hospitalization patient underwent VATS procedure with evacuation of hemothorax. Her chest tube was discontinued on 10/24/2018. Hematology, cardiothoracic surgery as well as cardiology closely followed this patient. Critical care medicine transfer the care of the patient to hospitalist service on 10/25/2018. 10/27/18: patient reports left sided drainage today has increased. Chest x-ray shows no air leak. Patient will likely need wound care at her left wound upon discharge. Monitor for 24 hours further to ensure no worsening. Likely discharge tomorrow morning. Chest tube drainage at left Obtain chest x-ray to ensure no air leakage Follow clinically No shortness of breath reported by patient Subacute right lower lobe pulmonary embolism Resolved left spontaneous hemothorax VATS procedure on 10/19/2018. Chest tube removed on 10/24/2018. Continue oxygen as needed Continue breathing treatments as needed Multivessel coronary artery disease Recent acute STEMI perioperatively. CABG x4 on 09/29/2018 Continue Pradaxa 150 mg p.o. twice daily Continue Plavix Continue Lasix Continue Ranexa Cardiology following Subacute heparin Induced thrombocytopenia and thrombosis (AKILAH) Avoid heparin Currently on Pradaxa instead Follow CBC DVT prophylaxis Pradaxa Progress Note: Quality VTE Deep Vein Thrombosis/Pulmonary Embolism Present on Admission: No
--- NOTE | 2018-10-27 15:01 | P.DCO ---
Home Health Nursing Order: Medical education, Signs/symptoms of disease process and Wound care and dressing changes Instructions: Topical dressing (gauze) with daily change. Monitor until drainage improves. Case Management Consult Case Management Consult-Home Health: Yes I have seen patient Aditi Lira on 10/27/18. My clinical findings support the need for the requested home health care services because: Limited mobility due to disease progression, Deconditioned with increased weakness, Limited ability to care for self and Infection with risk of complications I certify that my clinical findings support that this patient is homebound because: Unsteady gait/balance, Unsafe to leave home unassisted and Unable to use public transportation
--- NOTE | 2018-10-27 22:01 | P.PNCA ---
Subjective Interval history: No events overnight Feeling well Worried about drainage from chest tube site Medications and Allergies Active Medications: Active Medications Hydrocodone Bitart/Acetaminophen ([place] 5/325) 1 tab PO Q6H PRN PRN Reason: PAIN 1-10 Last Admin: 10/27/18 16:59 Dose: 1 tab Al Hydroxide/Mg Hydroxide (Milk Of Magnesia Liq) 30 ml PO Q12H PRN PRN Reason: Mild Constipation Albuterol (Albuterol Neb (Prn)) 2.5 mg NEB Q2HR NEB PRN PRN Reason: SHORTNESS OF BREATH/WHEEZING Bisacodyl (Dulcolax Supp) 10 mg RECTAL DAILY PRN PRN Reason: SEVERE CONSITIPATION Calcium Carbonate (Tums Chew) 500 mg CHEW Q6H PRN PRN Reason: INDIGESTION Last Admin: 10/27/18 20:39 Dose: 500 mg Clopidogrel Bisulfate (Plavix) 75 mg PO DAILY [facility] Last Admin: 10/27/18 08:16 Dose: 75 mg Dabigatran (Pradaxa) 150 mg PO BID [facility] Last Admin: 10/27/18 20:04 Dose: 150 mg Dextrose (D50w Vial) 50 ml IV.PUSH UNSCH PRN PRN Reason: PER HYPOGLYCEMIA PROTOCOL Furosemide (Lasix) 40 mg PO DAILY PRN PRN Reason: SEE LABEL COMMENTS Glucagon (Glucagon Inj) 1 mg OTHER PRN PRN PRN Reason: for Hypoglycemia Protocol Morphine Sulfate (Morphine Inj) 30 mg in 30 mls @ 0 mls/hr 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 PRN Reason: prn pain Last Admin: 10/25/18 08:00 Dose: 0 mls/hr Insulin Human Regular (Novolin R Correctional Sugar Inj) 0 units SQ Q6HR [facility]; Protocol Last Admin: 10/27/18 16:59 Dose: 10 units Lactulose (Lactulose Liq) 30 ml PO DAILY PRN PRN Reason: SEVERE CONSITIPATION Naloxone HCl (Narcan Inj) 0.4 mg IV.PUSH PRN PRN PRN Reason: Resp rate < 10 Ondansetron HCl (Zofran Inj) 4 mg IV.PUSH Q6H PRN PRN Reason: NAUSEA OR VOMITING Last Admin: 10/27/18 20:39 Dose: 4 mg Pantoprazole Sodium (Protonix Inj) 40 mg IV.PUSH DAILY [facility] Last Admin: 10/27/18 08:15 Dose: 40 mg Ranolazine (Ranexa) 500 mg PO Q12H [facility] Last Admin: 10/27/18 16:59 Dose: 500 mg Senna/Docusate Sodium (Jacqui-Colace) 1 tab PO BID [facility] Last Admin: 10/27/18 20:04 Dose: Not Given Sennosides (Senokot) 17.2 mg PO Q12H PRN PRN Reason: Moderate Constipation Last Admin: 10/24/18 18:24 Dose: 17.2 mg Sertraline HCl (Zoloft) 50 mg PO DAILY [facility] Last Admin: 10/27/18 08:16 Dose: 50 mg Sodium Chloride (Ns Flush) 2 ml IV.FLUSH BID [facility] Last Admin: 10/27/18 20:04 Dose: 2 ml Sodium Chloride (Ns Flush) 2 ml IV.FLUSH PRN PRN PRN Reason: FLUSH AFTER USING IV ACCESS Temazepam (Restoril) 7.5 mg PO HS [facility] Last Admin: 10/27/18 20:04 Dose: 7.5 mg Allergies Allergy/AdvReac Type Severity Reaction Status Date / Time heparin Allergy Severe HEPARIN-INDUCED Verified 10/17/18 09:15 THROMBOCYTOPENIA metoprolol Allergy Severe HALLUCINATI Verified 10/17/18 09:15 ONS famotidine Allergy Unknown RASH Verified 10/17/18 09:15 lisinopril Allergy Unknown Itching Verified 10/17/18 09:15 insulin detemir AdvReac Unknown Diarrhea Verified 10/17/18 09:15 Home Medications Medication Instructions Recorded Confirmed Type aspirin [Aspir-81] 81 mg PO DAILY 08/03/18 10/17/18 History atorvastatin 20 mg PO DAILY 08/03/18 10/17/18 History insulin glargine [Lantus U-100 38 unit SUB-Q DAILY 08/03/18 10/17/18 History Insulin] insulin lispro [Humalog U-100 30 unit SUB-Q TIDAC 08/03/18 10/17/18 History Insulin] methocarbamol 500 mg PO QID 08/03/18 10/17/18 History nitroglycerin 0.3 mg SUBLINGUAL Q5-15M PRN 08/03/18 10/17/18 History sertraline 50 mg PO DAILY 08/03/18 10/17/18 History temazepam 7.5 mg PO HS 08/03/18 10/17/18 History docusate sodium [DOK] 100 mg PO BID PRN 10/17/18 10/17/18 History Physical Exam Vital signs: Vital Signs 10/27/18 00:00 10/27/18 04:00 10/27/18 05:58 Temperature 99.4 F 99.0 F 99.5 F Pulse Rate 100 H 96 H Respiratory Rate 16 16 Blood Pressure 123/79 114/74 Pulse Oximetry 96 96 10/27/18 06:17 10/27/18 06:40 10/27/18 08:00 Temperature 98.0 F Pulse Rate 96 H Respiratory Rate 18 Blood Pressure 133/94 H 114/78 104/68 Pulse Oximetry 98 10/27/18 12:00 10/27/18 15:52 10/27/18 19:40 Temperature Pulse Rate 99 H 101 H 102 H Respiratory Rate 18 18 Blood Pressure 108/81 117/81 Pulse Oximetry 99 95 Intake & Output 10/27/18 10/27/18 10/28/18 06:59 18:59 06:59 Intake Total 240 / 240 1300 / 1300 Output Total 550 / 550 Balance -310 / -310 1300 / 1300 Weight 82.4 kg Intake: Oral 240 / 240 1300 / 1300 Output: Urine 550 / 550 Other: # Voids 6 Date of Last Bowel Movement 10/26/18 10/27/18 # Bowel Movements 1 Narrative: GENERAL: NAD, A&Ox3 HEAD: Normocephalic. NECK: Supple, trachea midline. No lymphadenopathy. EYES: No scleral icterus. No injection or drainage. CARDIOVASCULAR: Regular rate and rhythm without murmurs, gallops, or rubs. RESPIRATORY: Breath sounds equal bilaterally. No accessory muscle use. GASTROINTESTINAL: Abdomen soft, non-tender, nondistended. MUSCULOSKELETAL: No cyanosis, or edema. SKIN: Warm and dry. Left-sided chest tube wound is bandaged, drainage present. NEURO: No focal neurological deficits. - Urinary Catheter Management Straight Cath placed during this visit: yes Reason for continuing: Not indwelling catheter Insertion date: 10/18/18 Insertion time: 09:30 Indwelling Urethral Catheter Cath placed during this visit: yes, but has since been removed by the nurse Reason for continuing: Not indwelling catheter Insertion date: 11/27/18 Insertion time: 09:30 Removal date: 10/21/18 Removal time: 18:00 Results 10/27/18 02:48 10/27/18 02:48 Cardiac Enzymes 10/27/18 Range/Units 02:48 AST 21 (15-37) U/L CBC 10/26/18 10/27/18 Range/Units 03:50 02:48 WBC 6.7 6.6 (4.0-11.0) th/mm3 RBC 3.21 L 3.28 L (4.00-5.30) mil/mm3 Hgb 9.6 L 9.7 L (11.6-15.3) gm/dL Hct 28.0 L 28.6 L (35.0-46.0) % Plt Count 308 322 (150-450) th/mm3 Neut # (Auto) 4.0 (1.8-7.7) th/mm3 Lymph # (Auto) 1.8 (1.0-4.8) th/mm3 [place] # (Auto) 0.7 (0.0-0.9) th/mm3 Eos # (Auto) 0.1 (0.0-0.4) th/mm3 Baso # (Auto) 0.0 (0.0-0.2) th/mm3 Comprehensive Metabolic Panel 10/26/18 10/27/18 Range/Units 03:50 02:48 Sodium 137 137 (136-145) meq/L Potassium 4.1 3.9 (3.5-5.1) meq/L Chloride 102 101 (98-107) meq/L Carbon Dioxide 29.2 29.3 (21.0-32.0) meq/L BUN 5 L 5 L (7-18) mg/dL Creatinine 0.60 0.71 (0.50-1.00) mg/dL Calcium 7.9 L 8.1 L (8.5-10.1) mg/dL AST 21 (15-37) U/L ALT 26 (10-53) U/L Alkaline Phosphatase 261 H (45-117) U/L Total Protein 6.4 (6.4-8.2) g/dL Albumin 2.4 L (3.4-5.0) g/dL Intake and Output 10/27/18 10/27/18 10/27/18 06:59 14:59 22:59 Intake Total 240 / 240 1300 / 1300 Output Total 550 / 550 Balance -310 / -310 1300 / 1300 Intake: Oral 240 / 240 1300 / 1300 Output: Urine 550 / 550 Other: # Voids 6 Date of Last Bowel Movement 10/26/18 10/26/18 10/27/18 # Bowel Movements 1 Weight 82.4 kg - Imaging and Cardiology Imaging: Impressions Chest X-Ray 10/26/18 00:00 CONCLUSION: 1. No free air is visualized. 2. Stable left lung airspace consolidation and pleural-based opacity likely representing an effusion. Assessment and Plan - Assessment (1) Hemothorax Code(s): J94.2 - Hemothorax Status: Acute (2) Elevated troponin Code(s): R74.8 - Abnormal levels of other serum enzymes Status: Acute (3) CAD (coronary artery disease), [place] coronary artery Code(s): I25.10 - Atherosclerotic heart disease of [place] coronary artery without angina pectoris Status: Chronic (4) S/P coronary artery bypass graft x 4 Code(s): Z95.1 - Presence of aortocoronary bypass graft Status: Chronic (5) Heparin induced thrombocytopenia (HIT) Code(s): D75.82 - Heparin induced thrombocytopenia (HIT) Status: Chronic (6) Pneumonia Code(s): J18.9 - Pneumonia, unspecified organism Status: Acute (7) Acute pulmonary embolism Code(s): I26.99 - Other pulmonary embolism without acute cor pulmonale Status : Acute - Plan 1) Hx of CAD, previous CABGx4 with acute graft closure due to HIT, s/p complex PCI Unfortunately with recent complex PCI would not stop Plavix due to high risk of stent thrombosis 2) Hemothorax Chest tube placed by critical care VATS POD#7 Chest tubes out Chest tube drainage Asked CT surgery to show her how to dress the area 3) Doubt PNA 4) Acute pulmonary embolism Argatroban restarted 5) Minimal elevated troponins secondary to pulmonary embolism as well as recent events No acute coronary syndrome noted 6) Complex case Ultimately need to be on combination of anticoagulation/antiplatelet Transferred to Pradaxa and Plavix 7) Cardiovascularly stable for discharge Will see in the office in 4-8 weeks
[2018-10-28] MEDS: Insulin NovoLIN Regular Correctional Sugar Inj SQ SCH ×2 (00:07→06:00)
[2018-10-28] MEDS: Ranolazine 500 MG 12HR ER Tablet PO SCH (05:59)
[2018-10-28 09:06] VITALS: BP 114/80; PULSE 101; RESP 20; TEMP 98.6; O2SAT 95
[2018-10-28] MEDS: Pantoprazole Inj 40 MG Vial IV.PUSH SCH (09:18)
[2018-10-28] MEDS: Senna/Docusate Sodium 8.6/50 MG Tablet PO SCH (09:18)
[2018-10-28] MEDS: Sertraline 50 MG Tablet PO SCH (09:18)
--- NOTE | 2018-10-28 11:29 | P.DS ---
DS: Providers Date of admission: 10/17/18 10:43 Primary care physician: Emerald Hahn MD Consults: 10/17/18 10:42 Consult to Cardiology Routine Consulting Provider: Chito Melissa Does the patient have a [employer] who follows them?: Yes Preferred Vice President Quality Assurance:: Chito Melissa Reason for Consultation: RECENT ID, CABG Graft occlusion Notified:: Office Spoke with:: JESSY Date Notified:: 10/17/18 Time Notified:: 11:12 Ordering Provider: DESIREE 10/17/18 13:03 Consult to Cardiothoracic Surgery Routine Consulting Provider: Ernesto Campos Preferred Transportation Maintenance Worker:: Ernesto Campos Patient known to:: Ernesto Campos Reason for Consultation: Complex, loculated left pl effusion. Recent CABG Notified:: Physician Spoke with:: Dr Campos Date Notified:: 10/17/18 Time Notified:: 13:14 Ordering Provider: DESIREE 10/17/18 13:06 Consult to Hematology Routine Consulting Provider: Phil Curry Preferred Transportation Maintenance Worker:: Phil Curry Patient known to:: Phil Curry Reason for Consultation: PE while on Arixtra Notified:: Service Spoke with:: JONAS Date Notified:: 10/17/18 Time Notified:: 13:39 Ordering Provider: DESIREE 10/19/18 21:11 Consult to Cryptographic Machine Operator Routine Consulting Provider: Bladimir Acosta Reason for Consultation: Management of ventilator/extubation Notified:: Service Spoke with:: Arnaldo Date Notified:: 10/19/18 Time Notified:: 22:39 Ordering Provider: DOMO 10/24/18 11:45 Consult to Hospitalist Routine Consulting Provider: Adali Escobar Reason for Consultation: 58yF spontaneous hemothorax, HIT positive. Notified:: Service Spoke with:: Beth Date Notified:: 10/24/18 Time Notified:: 11:47 Comments:: waiting on assignment - ML Ordering Provider: AGREENE Brief History from admission: Patient is a 58-year-old female with history of coronary artery disease, type 2 diabetes, who underwent off-pump CABG x 4 09/29/[address] Campos. Intraoperatively she had significant ST elevations, emergently taken to [facility] by by Dr. Melissa, found to have completely occluded grafts. Patient underwent MAXWELL to OM1, LAD. balloon angiopasty to OM2. Patient had a complicated course and was diagnosed with heparin-induced thrombocytopenia. A follow-up echo on 10/03/2018 showed EF 50-55%. Patient was eventually discharged on 10/10/2018 with a prescription for Arixtra however next day she had to be admitted for 1 day for as pharmacy did not have Arixtra. Arixtra was arranged and patient was discharged again on 10/11/2018. Today she presented to the emergency department for chest pain and shortness of breath. For systolic blood pressure in the 80s patient received IV fluid bolus by EMS. Chest x-ray showed extensive left-sided infiltrate/effusion. Presuming pneumonia and septic shock, patient received cefepime and azithromycin in the ED. Lactic acid was 2.1. Critical care was contacted for admission as after 2 L fluid boluses patient remained hypotensive I discussed with Dr. Kearns, recommended additional 1 more liter fluid bolus, and start Levophed if patient remains hypotensive. I also recommended stat CT Chest PE protocol. This showed pulmonary embolism in right lower lobe segmental and subsegmental branches. Also there was extensive consolidative change in the left perihilar region, left lung base, and also large mixed density loculated and nonloculated pleural fluid with associated pleural thickening. I have discussed the case with Dr. Campos cardiothoracic surgery, Dr. Melissa, cardiology and Dr. Curry hematology oncology. Patient will be admitted to ICU and I will discontinue Arixtra and start on Argatroban IV. I evaluated the patient in the ICU. She appears to be in moderate distress hypotensive currently on 5 mcg/min of Levophed. She had received total 3 L normal saline boluses. I will place her on Argatroban as above. A stat 2D echo prelim did not reveal any evidence of RV dysfunction. Hypotension is secondary to his severe sepsis and septic shock not related to PE. No indication for TPA. Pancultured continue broad-spectrum antibiotic with Zosyn, Zyvox and azithromycin. Because of the loculation and pleural thickening involving the effusion, once clinically more stable patient may need decortication procedure DS: Summary Mrs. Lira is a 58-year-old female. She is status post CABG x4 on 2017. After surgery she has had some complications including the need for acute stenting post surgery due to acute occlusion. She was placed on Arixtra. After discharge she came back with shortness of breath and chest pain which was found to be related to an acute hemothorax. Hemothorax was evacuated and the chest tubes were placed during the stay. At this point patient has had removal of chest tubes. Her treatment has been converted to Plavix and Pradaxa. She is recovering well and medically stable and cleared for discharge to home today. Time Spent with Patient Total time spent providing and/or coordinating discharge services: Quality: VTE Deep Vein Thrombosis/Pulmonary Embolism Present on Admission: No Results Procedures completed during hospitalization: VATS with evacuation of hemothorax on 10/19/2018. Echocardiogram 10/17/2018 The left ventricular systolic function is low normal with an estimated ejection fraction in the range of 50- 55%. Doppler parameters are consistent with impaired left ventricular relaxtion ( grade 1 diastolic dysfunction). The right ventricular systoilc function is moderately decreased. Unable to determine if there is still possible thrombus at the RV apex ( compared to previous echo). There is trace tricuspid valve regurgitation. Small apical locuated pericardial effusion, no signs of tamponade. Left pleural effusion. Labs on day of discharge: Labs from last 24 hours 10/28/18 10/27/18 10/27/18 05:56 23:55 16:51 POC Glucose 152 H 241 H 203 H Impressions ITS Impressions Chest CTA 10/17/18 10:41 CONCLUSION: 1. Study is positive for pulmonary embolism 2. Extensive complex pleural fluid and thickening on the left 3. Bilateral consolidative changes, fairly extensive on the left, mild on the right Abdomen/Pelvis CT 10/18/18 05:22 CONCLUSION: 1. No retroperitoneal hemorrhage. No acute findings within the abdomen and pelvis. Mild anasarca. 2. High density material in the lower left chest tube which could represent a hemothorax. Chest CT 10/21/18 00:00 CONCLUSION: 1. There is only a very small volume of left pleural fluid. Most of the opacity on the left on the recent chest x-ray represents a combination of airspace consolidation and subsegmental atelectasis. 2. There are 3 large bore left chest tubes in place without a significant pneumothorax. The superior chest tube is partially filled with fluid. 3. There is airspace opacity in the right lower lobe with an appearance favoring subsegmental atelectasis. There is also trace right pleural fluid. Venous Doppler Study 10/24/18 11:40 CONCLUSION: No deep venous thrombosis on either side but there is greater saphenous vein thrombus and subcutaneous edema on the left. Chest X-Ray 10/26/18 00:00 CONCLUSION: 1. No free air is visualized. 2. Stable left lung airspace consolidation and pleural-based opacity likely representing an effusion. Discharge Plan Discharge Disposition Patient Disposition: /Home Health Service Discharge Condition Condition: Stable Discharge Order Discharge Orders: Discharge Order (Routine); Ordered 10/28/18 Ordered By: Colton Grant Discharge Details Anticipated Discharge Date: 10/28/18 Physicians Team Primary Care Provider: Emerald Hahn Attending Provider: Colton Grant Other Providers: Chito Melissa ; Ernesto Campos ; Phil Curry ; Bladimir Acosta Rxs /Orders / Referrals /Forms Prescriptions: New clopidogrel [Plavix] 75 mg Tablet 75 mg PO DAILY Qty: 30 RF: 0 dabigatran etexilate [Pradaxa] 150 mg Capsule 150 mg PO BID Qty: 60 RF: 0 hydrocodone-acetaminophen 5-325 mg Tablet 1 tab PO Q6H PRN (Reason: PAIN 1-10) Qty: 20 RF: 0 promethazine 25 mg tablet 25 mg PO Q6H PRN (Reason: nausea) Qty: 120 RF: 0 Continue atorvastatin 20 mg Tablet 20 mg PO DAILY RF: 0 insulin glargine [Lantus U-100 Insulin] 100 unit/mL Solution 38 unit SUB-Q DAILY RF: 0 temazepam 7.5 mg Capsule 7.5 mg PO HS RF: 0 sertraline 50 mg Tablet 50 mg PO DAILY RF: 0 insulin lispro [Humalog U-100 Insulin] 100 unit/mL Cartridge 30 unit SUB-Q TIDAC RF: 0 ranolazine [Ranexa] 500 mg Tablet Extended Release 12 Hr 500 mg PO Q12H 90 Days Qty: 90 RF: 3 potassium chloride [Klor-Con 10] 10 mEq Tablet Extended Release 20 meq PO DAILY Qty: 30 RF: 0 ejdrkbmv-obyi-NI-calcium-mins [Thera M Plus (ferrous fumarat)] 9 mg iron-400 mcg Tablet 1 tab PO DAILY Qty: 30 RF: 2 furosemide [Lasix] 20 mg Tablet 40 mg PO DAILY PRN (Reason: edema) Qty: 30 RF: 0 docusate sodium [DOK] 100 mg capsule 100 mg PO BID PRN (Reason: Constipation) RF: 0 Discontinued methocarbamol 500 mg Tablet 500 mg PO QID RF: 0 nitroglycerin 0.3 mg Tablet, Sublingual 0.3 mg SUBLINGUAL Q5-15M PRN (Reason: Chest Pain) RF: 0 aspirin [Aspir-81] 81 mg Tablet,Delayed Release (Dr/Ec) 81 mg PO DAILY RF: 0 clopidogrel [Plavix] 75 mg Tablet 75 mg PO DAILY Qty: 30 RF: 2 fondaparinux [Arixtra] 7.5 mg/0.6 mL Syringe 7.5 mg subcut Q24H Qty: 90 RF: 0 hydrocodone-acetaminophen [[place]] 5-325 mg Tablet 1 tab PO Q6H PRN (Reason: Acute Pain) Qty: 30 RF: 0 Referrals: Lis Handy [[facility] RN PRACTITIONER] - See Instructions ( Your appointment has been scheduled for [11/08/18] at [11:45 AM] If you cannot make this appointment, please call the office to reschedule ) Emerald Hahn MD [Primary Care Provider] - See Instructions Phil Curry MD [Physician] - See Instructions (2 weeks - call for appointment ) Discharge Instructions Patient Printed Instructions: Dabigatran (By mouth), Chest Pain (ED), Pulmonary Embolism (DC), Thoracoscopy (DC), Acute Wound Care (DC), Chest Tubes ( DC) Additional Instructions: Incentive spirometry Q1 hr x 10, while awake, also use acapella device hourly whole Chest wall precautions: NO pushing or pulling, ( pt must use chest pillow support chest with all activities and with coughing) Daily incision care: ok to shower ( 48hrs after chest tube removed) and then daily, no tub bath. Wash all incisions with liquid dial soap, clean wash cloth to each site, rinse and pat dry. Observe for any signs of infection, such as drainage which is dark yellow, philip, green or foul smelling. Immediately report to the surgeon any drainage from the chest incision, or legs, and for any abnormal drainage from the chest tube sites. Notify surgeon if any temp > 101.5 degrees F. When specialty dressing removed/ or if you do not have one, continue to shower daily as above, then rinse and pat incision dry and paint with betadine daily x 5 days. Allow steri strips to fall off if you have any. Avoid lotions, creams, salves, oils, etc. for the first month For Dr. Johnson patients , please obtain PA & Lat CXR in 2 weeks, results to Dr. Johnson ( prescription will be given) ( ) (Tele: [phone]) , F/U appointment: as per DC instructions: PCP in 2 weeks, CV surgeon 2 weeks, Head Inspector 3-4 weeks For any questions regarding incisions/ dressing / meds / post op care or above Symptoms, Wednesday 8am-5pm Heart & Vascular Surgery Office ( Dr. Campos & Dr. Johnson), After Hours / Nights (5pm -8am) Weekends and Holidays Please call [facility] ([facility]) Charge Nurse Status ED Status: Left Department
== END 2018-10-28 12:05 | disposition home health service (06) ==
LOC: NEPC 08:29 → NEDA 10:43 → HIMC 12:20 → HCIN 10-27 00:37
PROVIDERS: ADMIT Hospitalist; ATTEND Hospitalist